=== PATIENT | female | born 1955 | race Caucasian/White ===

== ENCOUNTER 2017-08-30 09:03 | Day surgery (SDC) | payer OTHER ==
--- OUTSIDE RECORDS SUMMARY | 2017-08-30 09:05 | XMS REPORT | Clinical Summary ---
:1955 Author Organization [facility] Address [address] [place] [address] Care Team Providers Name Role Phone Nader Roche MD Primary Care Provider Allergies Active Allergy Reactions Severity Noted Date Comments Penicillins 01/07/2017 Current Medications Prescription Sig. Disp. Refills Start Date End Date Status esomeprazole (NexIUM) Take 40 mg by 3 10/02/2016 Active 40 MG capsule mouth 2 (two) times a day. hydrALAZINE Take 100 mg by 3 11/07/2016 Active (APRESOLINE) 100 MG mouth 2 (two) tablet times a day. ascorbic acid, Take 1,000 mg Active vitamin C, (vitamin by mouth daily. C) 1000 MG tablet pyridoxine, vitamin Take 100 mg by Active B6, (B-6) 100 MG mouth daily. tablet ferrous sulfate 325 Take 325 mg by Active (65 FE) MG tablet mouth daily with breakfast. biotin 5,000 mcg Take 1 tablet Active tablet,disintegrating by mouth daily. VITAMIN B COMPLEX VIT Take 1 tablet Active C NO.4 (SUPER B by mouth daily. COMPLEX + C ORAL) cholecalciferol, Take 1 tablet Active vitamin D3, (VITAMIN by mouth daily. D3) 5,000 unit tablet VIT B COMPLX C/FOLIC Take 1 tablet Active ACID/ZINC (DIALYVITE by mouth daily. 800 WITH ZINC 50 ORAL) omega-3 fatty Take 1 tablet Active acids-fish oil (OMEGA by mouth daily. 3 FISH OIL) 684-1,200 mg capsule,delayed release(DR/EC) NIFEdipine XL Take 90 mg by Active (PROCARDIA XL) 90 MG mouth 2 (two) 24 hr tablet times a day. losartan (COZAAR) 50 Take 50 mg by Active MG tablet mouth 2 (two) times a day. liothyronine Take 5 mcg by Active (CYTOMEL) 5 MCG mouth 2 (two) tablet times a day. isosorbide Take 120 mg by Active mononitrate (IMDUR) mouth daily. 60 MG 24 hr tablet carvedilol (COREG) 25 Take 25 mg by Active MG tablet mouth 2 (two) times a day with meals. pravastatin Take 20 mg by Active (PRAVACHOL) 20 MG mouth daily. tablet levothyroxine Take 75 mcg by Active (SYNTHROID) 75 mcg mouth every tablet morning. sevelamer (RENVELA) Take 800 mg by Active 800 mg tablet mouth 3 (three) times a day with meals. UNABLE TO FIND Med Name: Active Novalog Insulin Pump doxazosin (CARDURA) 2 TAKE 1 TABLET 3 01/28/2017 04/22/2017 Discontinued MG tablet BY MOUTH EVERY DAY AT BEDTIME. Active Problems Problem Noted Date PFO with atrial septal aneurysm 01/07/2017 HTN (hypertension), malignant 01/07/2017 End stage renal disease 01/07/2017 Diabetes mellitus 01/07/2017 Resolved Problems Problem Noted Date Resolved Date ASD (atrial septal defect) 01/07/2017 02/18/2017 Encounters Date Type Specialty Care Team Description 04/22/2017 Office Visit Cardiology Zelalem Ellison Hypertension, unspecified type (Primary Dx); MD Sirena PFO with atrial septal aneurysm; HTN (hypertension), malignant 02/18/2017 Office Visit Cardiology Zelalem Ellison PFO with atrial septal aneurysm (Primary Dx); MD Sirena End stage renal disease 01/15/2017 Hospital Encounter Procedural Zelalem Ellison PFO (patent foramen ovale); Cardiology MD Sirena ASD (atrial septal defect) 01/08/2017 Abstract Transplant Erlinda Bettencourt RN 01/07/2017 Office Visit Cardiology Zelalem Ellison PFO (patent foramen ovale) ( Primary Dx); MD Sirena ASD (atrial septal defect); Kidney disease; HTN (hypertension), malignant; PFO with atrial septal aneurysm; Diabetes mellitus of other type with complication; ESRD (end stage renal disease) on dialysis after 08/29/2016 Family History Medical History Relation Name Comments Heart attack Father Hypertension Mother Thyroid disease Mother Hypertension Sister Relation Name Status Comments Father Mother Sister Alive Social History Tobacco Use Types Packs/Day Years Used Date Former Smoker Alcohol Use Drinks/Week oz/Week Comments No Sex Assigned at Date Recorded Not on file Last Filed Vital Signs Vital Sign Reading Time Taken Blood Pressure 127/61 04/22/2017 12:13 PM [employer] Pulse 73 04/22/2017 12:13 PM [employer] Temperature - - Respiratory Rate 14 04/22/2017 12:13 PM [employer] Oxygen Saturation 95% 02/18/2017 8:53 AM CDT Inhaled Oxygen Concentration - - Weight 56.2 kg (124 lb) 04/22/2017 12:13 PM [employer] Height 170.2 cm (5' 7") 04/22/2017 12:13 PM [employer] Body Mass Index 19.42 04/22/2017 12:13 PM [employer] Plan of Treatment Health Maintenance Due Date Last Done Comments FOOT EXAM 02/15/1964 OPHTHALMOLOGY EXAM 02/15/1964 URINE MICROALBUMIN 02/15/1964 PAP SMEAR 1975 COLONOSCOPY 02/15/2004 MAMMOGRAM 02/15/2004 ZOSTER VACCINE 2014 INFLUENZA VACCINE 01/08/2017 Results ECG 12 lead (04/22/2017 12:18 PM)Only the most recent of2 resultswithin the time period is included. Component Value Ref Range Ventricular rate 71 Atrial rate 71 SD interval 142 QRSD interval 82 QT interval 458 QTC interval 497 P axis 1 75 QRS axis 1 -50 T wave axis 40 EKG impression Normal sinus rhythm-Left anterior fascicular block-Prolonged QT-Abnormal ECG- Specimen Performing Laboratory [facility] [address] [place] [address] Hemoglobin (02/28/2017) Specimen Performing Laboratory Blood Comprehensive metabolic panel (2017)Only the most recent of2 resultswithin the time period is included. Specimen Performing Laboratory Blood Cardiac mri congenital heart dz shunt eval w contrast (01/15/2017 11:49 AM) Specimen Performing Laboratory [facility] [address] [place] [address] [facility] CMR Report Name: MILAD HIGHTOWER :1955 Scan Date: 2017-01-15 10:31:56 Signed by Antione Gonzalez M.D. (uid:20) 17:24:38. SUMMARY ====== 1.Tunneled Patent sosa ovale with left to right shunt demonstrated. The net Qp-Qs=1.0 suggesting minimal net shunting. 2.Mild left atrial enlargement. Mild right ventricular enlargement. NO intracardiac thrombus or mass. 3.Hyperdynamic LV and normal RV systolic function without regional wall motion abnormalities (LVEF 73%, RVEF 54%). 4.No CMR criteria for cardiac iron overload (myocardial T2* ~ 40 msec). 5.Mild mitral and tricuspid regurgitation. 6.The thoracic aorta is of normal caliber without stenosis, aneurysm, or dissection. Normal pulmonary venous anatomy; NO anomalous pulmonary veins. Dilated main pulmonary artery ( 3.5 cm), right pulmonary artery (2.7 cm). Dilated IVC 7.Other: bilateral breast implants. Hepatomegaly. FINAL IMPRESSION: A.TUNNELED PFO WITH LEFT TO RIGHT SHUNT AND QP/QS OF 1 B.MILD RV DILATION. C.DILATED PULMONARY ARTERIES SUGGESTIVE OF PULMONARY HYPERTENSION D.NO CARDIAC IRON OVERLOAD. CORE EXAM ====== MEASUREMENTS ------ ---- VOLUMETRIC ANALYSIS . . || | LV| Reference | RV| Reference | +------+-------+-------+ +-------+ + | EDV| ml| 144.5 |(89-146) | 172.5 |(82-144) | | ESV| ml|39.5 |(21-52)|78.6 |(13-57)| | CO | L/min |6.72 | |6.01 | | | MASS | g | 144.9 |(80-131) | | | | SV | ml| 105 |(60-100) |93.9 |(57-97)| | EF | % | 72.66 |(60-78)| 54.43 |(57-81)| '------+-------+-------+ +-------+ ' HEART RATE:64 LV DIMENSIONS WALL THICKNESS - ANTEROSEPTAL:1.1 cm WALL THICKNESS - INFEROLATERAL:0.8 cm LV SHANNON:5 cm LV ESD:3 cm LA DIMENSIONS (LV SYSTOLE) DIAMETER:3.9 cm AREA - 2 CHAMBER:25 cm^2 LENGTH - 2 CHAMBER:6 cm AREA - 4 CHAMBER:28 cm^2 LENGTH - 4 CHAMBER:6.6 cm VOLUME:99.17 ml AORTIC ROOT DIMENSIONS DIAMETER - ANNULUS:2.3 cm DIAMETER - SINUS OF VALSALVA:3.1 cm DIAMETER - SINOTUBULAR JUNCTION:2.4 cm AORTIC ROOT SIZE:Normal IRON QUANTIFICATION MYOCARDIAL T2*:41 msec LIVER T2*:3 msec FLOW ANALYSIS QP:5.3 L/min QS:5.6 L/min QP/QS:0.95 CONDENSED SUMMARY ------ ---- LV:Normal Wall Thickness. Cavity Size is Normal. No Mass/Thrombus. RV:Normal Wall Thickness. Contractility is Normal. Cavity Size is MILDLY ENLARGED. No Mass/Thrombus. No Pacemaker/Defibrillator Wire. IVS:Normal Interventricular Septum. LA:Cavity Size is MILDLY ENLARGED. No Mass/Thrombus. IAS:PFO. RA:Cavity Size is Normal. No Mass/Thrombus. No Additional Findings. No Pacemaker/Defibrillator Wire. PER:Normal Pericardium. SMALL Effusion. No Diastolic Collapse. PE:No Pleural Effusion. AV:Trileaflet. No Aortic Regurgitation. No Aortic Stenosis. TV:Normal Leaflets. MILD Tricuspid Regurgitation. Tricuspid Regurgitant Volume is 14 ml. Tricuspid Regurgitant Fraction is 15 %. No Tricuspid Stenosis. MV:Normal Leaflets. MILD Mitral Regurgitation. Mitral Regurgitant Volume is 20 ml. Mitral Regurgitant Fraction is 19 %. No Mitral Stenosis. PV:Normal Leaflets. No Pulmonic Regurgitation. No Pulmonic Stenosis. 17 SEGMENT ------ ---- . ------ ------. | Segments | Wall Motion| Hyperenhancement | Stress Perfusion | Interpretation | + + + + +---- ------ ------+ | Base Anterior| Normal/Hyper ||| | | Base Anteroseptal| Normal/Hyper ||| | | Base Inferoseptal| Normal/Hyper ||| | | Base Inferior| Normal/Hyper ||| | | Base Inferolateral | Normal/Hyper ||| | | Base Anterolateral | Normal/Hyper ||| | | Mid Anterior | Normal/Hyper ||| | | Mid Anteroseptal | Normal/Hyper ||| | | Mid Inferoseptal | Normal/Hyper ||| | | Mid Inferior | Normal/Hyper ||| | | Mid Inferolateral| Normal/Hyper ||| | | Mid Anterolateral| Normal/Hyper ||| | | Apical Anterior| Normal/Hyper ||| | | Apical Septal| Normal/Hyper ||| | | Apical Inferior| Normal/Hyper ||| | | Apical Lateral | Normal/Hyper ||| | | [place] | Normal/Hyper ||| | + + + + +---- ------ ------+ | RV Segments| Wall Motion| Hyperenhancement | Stress Perfusion | Interpretation | + + + + +---- ------ ------+ | RV Basal Anterior| Normal/Hyper ||| | | RV Basal Inferior| Normal/Hyper ||| | | RV Mid | Normal/Hyper ||| | | RV Apical| Normal/Hyper ||| | ' + + + +---- ------ ------' VASCULAR ====== SCAN INFO ====== GENERAL ------ ---- SEDATION SEDATION USED?:No CONTRAST AGENT TYPE:Other... OTHER TYPE:Francisco LOT NUMBER:[id number] EXPIRATION DATE:2019-09-08 00:00:00 VOLUME ADMINISTERED:3 ml DOSAGE FOR 0.5M:0.03 mmol/kg SERUM CREATININE:7.29 sCr GFR:6.03 ml/min/1.73m^2 FEMALE:Yes OR BLACK:No CREATININE DATE:2017-01-12 00:00:00 LAB RESULT HEMATOCRIT LEVEL:36.1 % HEMATOCRIT DATE:2017-01-12 00:00:00 VITALS HEIGHT:67 in HEIGHT:170.18 cm BODY WEIGHT:130.01 lbs BODY WEIGHT:58.97 kgs BSA::1.68 m^2 SYSTOLIC BP:164 mmHg DIASTOLIC BP:74 mmHg HEART RATE:68 BPM HEART RHYTHM:Sinus Rhythm PULSE SEQUENCE PULSE SEQUENCES:Single-Shot SSFP, IR SSFP - Single Shot, T1 Turbo Spin Echo, Single Shot BB BOB, SSFP Cine, Phase Contrast Velocity Mapping, 3D MRA w and w/o contrast SETUP TYPE:Clinical INPATIENT:No LOCATION:[facility] INCOMPLETE SCAN:No REASON(S) FOR SCAN:ASD (evaluate for) REFERRING PHYSICIAN:Zelalem Ellison MD ATTENDING PHYSICIAN:Antione Gonzalez MD TECHNICIANS:Madie GARDNER ASSISTANTS:1) Marko Espinoza 2) Sidra Bob ------ ---- Patient Account [id number] CPT Codes 08788, [ , ]70559, [ , ]77720 ICD10 Codes R93.1, [ , ]Q21.1 ADDITIONAL NOTES ------ ---- Imaging was performed using an intravenous infusion of ferumoxytol after consultation with the patient's physician.MRI assessment of liver T2-star values was performed to exclude iron overload.The patient was monitored for more than 60 minutes after administration and tolerated the procedure well and there were no complications.Note use of this agent may lead to interference on MRI of the abdomen for up to 3 months. Procedure Note Interface, Radiology Results In - 01/15/2017 5:25 PM CDT [facility] CMR Report Name: MILAD HIGHTOWER : 1955 Scan Date: 2017-01-15 10:31:56 Signed by Antione Gonzalez M.D. (uid:20) 17:24:38. SUMMARY 1. Tunneled Patent sosa ovale with left to right shunt demonstrated. The net Qp-Qs=1.0 suggesting minimal net shunting. 2. Mild left atrial enlargement. Mild right ventricular enlargement. NO intracardiac thrombus or mass. 3. Hyperdynamic LV and normal RV systolic function without regional wall motion abnormalities (LVEF 73%, RVEF 54%). 4. No CMR criteria for cardiac iron overload (myocardial T2* ~ 40 msec). 5. Mild mitral and tricuspid regurgitation. 6. The thoracic aorta is of normal caliber without stenosis, aneurysm, or dissection. Normal pulmonary venous anatomy; NO anomalous pulmonary veins. Dilated main pulmonary artery ( 3.5 cm), right pulmonary artery (2.7 cm). Dilated IVC 7. Other: bilateral breast implants. Hepatomegaly. FINAL IMPRESSION: A. TUNNELED PFO WITH LEFT TO RIGHT SHUNT AND QP/QS OF 1 B. MILD RV DILATION. C. DILATED PULMONARY ARTERIES SUGGESTIVE OF PULMONARY HYPERTENSION D. NO CARDIAC IRON OVERLOAD. CORE EXAM MEASUREMENTS VOLUMETRIC ANALYSIS . . | | | LV | Reference | RV | Reference | +------+-------+-------+ +-------+ + | EDV | ml | 144.5 | (89-146) | 172.5 | (82-144) | | ESV | ml | 39.5 | (21-52) | 78.6 | (13-57) | | CO | L/min | 6.72 | | 6.01 | | | MASS | g | 144.9 | (80-131) | | | | SV | ml | 105 | (60-100) | 93.9 | (57-97) | | EF | % | 72.66 | (60-78) | 54.43 | (57-81) | '------+-------+-------+ +-------+ ' HEART RATE: 64 LV DIMENSIONS WALL THICKNESS - ANTEROSEPTAL: 1.1 cm WALL THICKNESS - INFEROLATERAL: 0.8 cm LV SHANNON: 5 cm LV ESD: 3 cm LA DIMENSIONS (LV SYSTOLE) DIAMETER: 3.9 cm AREA - 2 CHAMBER: 25 cm^2 LENGTH - 2 CHAMBER: 6 cm AREA - 4 CHAMBER: 28 cm^2 LENGTH - 4 CHAMBER: 6.6 cm VOLUME: 99.17 ml AORTIC ROOT DIMENSIONS DIAMETER - ANNULUS: 2.3 cm DIAMETER - SINUS OF VALSALVA: 3.1 cm DIAMETER - SINOTUBULAR JUNCTION: 2.4 cm AORTIC ROOT SIZE: Normal IRON QUANTIFICATION MYOCARDIAL T2*: 41 msec LIVER T2*: 3 msec FLOW ANALYSIS QP: 5.3 L/min QS: 5.6 L/min QP/QS: 0.95 CONDENSED SUMMARY LV:Normal Wall Thickness. Cavity Size is Normal. No Mass/Thrombus. RV:Normal Wall Thickness. Contractility is Normal. Cavity Size is MILDLY ENLARGED. No Mass/Thrombus. No Pacemaker/Defibrillator Wire. IVS:Normal Interventricular Septum. LA:Cavity Size is MILDLY ENLARGED. No Mass/Thrombus. IAS:PFO. RA:Cavity Size is Normal. No Mass/Thrombus. No Additional Findings. No Pacemaker/Defibrillator Wire. PER:Normal Pericardium. SMALL Effusion. No Diastolic Collapse. PE:No Pleural Effusion. AV:Trileaflet. No Aortic Regurgitation. No Aortic Stenosis. TV:Normal Leaflets. MILD Tricuspid Regurgitation. Tricuspid Regurgitant Volume is 14 ml. Tricuspid Regurgitant Fraction is 15 %. No Tricuspid Stenosis. MV:Normal Leaflets. MILD Mitral Regurgitation. Mitral Regurgitant Volume is 20 ml. Mitral Regurgitant Fraction is 19 %. No Mitral Stenosis. PV:Normal Leaflets. No Pulmonic Regurgitation. No Pulmonic Stenosis. 17 SEGMENT . . | Segments | Wall Motion | Hyperenhancement | Stress Perfusion | Interpretation | + + + + +---- + | Base Anterior | Normal/Hyper | | | | | Base Anteroseptal | Normal/Hyper | | | | | Base Inferoseptal | Normal/Hyper | | | | | Base Inferior | Normal/Hyper | | | | | Base Inferolateral | Normal/Hyper | | | | | Base Anterolateral | Normal/Hyper | | | | | Mid Anterior | Normal/Hyper | | | | | Mid Anteroseptal | Normal/Hyper | | | | | Mid Inferoseptal | Normal/Hyper | | | | | Mid Inferior | Normal/Hyper | | | | | Mid Inferolateral | Normal/Hyper | | | | | Mid Anterolateral | Normal/Hyper | | | | | Apical Anterior | Normal/Hyper | | | | | Apical Septal | Normal/Hyper | | | | | Apical Inferior | Normal/Hyper | | | | | Apical Lateral | Normal/Hyper | | | | | [place] | Normal/Hyper | | | | + + + + +---- + | RV Segments | Wall Motion | Hyperenhancement | Stress Perfusion | Interpretation | + + + + +---- + | RV Basal Anterior | Normal/Hyper | | | | | RV Basal Inferior | Normal/Hyper | | | | | RV Mid | Normal/Hyper | | | | | RV Apical | Normal/Hyper | | | | ' + + + +---- ' VASCULAR SCAN INFO GENERAL SEDATION SEDATION USED?: No CONTRAST AGENT TYPE: Other... OTHER TYPE: Francisco LOT NUMBER: [id number] EXPIRATION DATE: 2019-09-08 00:00:00 VOLUME ADMINISTERED: 3 ml DOSAGE FOR 0.5M: 0.03 mmol/kg SERUM CREATININE: 7.29 sCr GFR: 6.03 ml/min/1.73m^2 FEMALE: Yes OR BLACK: No CREATININE DATE: 2017-01-12 00:00:00 LAB RESULT HEMATOCRIT LEVEL: 36.1 % HEMATOCRIT DATE: 2017-01-12 00:00:00 VITALS HEIGHT: 67 in HEIGHT: 170.18 cm BODY WEIGHT: 130.01 lbs BODY WEIGHT: 58.97 kgs BSA:: 1.68 m^2 SYSTOLIC BP: 164 mmHg DIASTOLIC BP: 74 mmHg HEART RATE: 68 BPM HEART RHYTHM: Sinus Rhythm PULSE SEQUENCE PULSE SEQUENCES: Single-Shot SSFP, IR SSFP - Single Shot, T1 Turbo Spin Echo, Single Shot BB BOB, SSFP Cine, Phase Contrast Velocity Mapping, 3D MRA w and w/o contrast SETUP TYPE: Clinical INPATIENT: No LOCATION: [facility] INCOMPLETE SCAN: No REASON(S) FOR SCAN: ASD (evaluate for) REFERRING PHYSICIAN: Zelalem Ellison MD ATTENDING PHYSICIAN: Antione Gonzalez MD TECHNICIANS: Madie GARDNER ASSISTANTS: 1) Marko Espinoza 2) Sidra Bob Patient Account [id number] CPT Codes 59681, [ , ]32355, [ , ]80096 ICD10 Codes R93.1, [ , ]Q21.1 ADDITIONAL NOTES Imaging was performed using an intravenous infusion of ferumoxytol after consultation with the patient's physician. MRI assessment of liver T2-star values was performed to exclude iron overload. The patient was monitored for more than 60 minutes after administration and tolerated the procedure well and there were no complications. Note use of this agent may lead to interference on MRI of the abdomen for up to 3 months. Estimated GFR (01/15/2017 10:01 AM) Component Value Ref Range GFR Non Af Amer 63 mL/min/1.73 m2 GFR Af Amer 77 mL/min/1.73 m2 Comment: Chronic kidney disease: <60 mL/min/1.73m2 Kidney failure: <15 mL/min/1.73m2 The estimated GFR is calculated from the IDMS-traceable Modification of Diet in Renal Disease Equation. The accuracy of the calculation is poor when the creatinine is normal. Calculated values >90 mL/min/1.73m2 are not reported. This equation has not been validated in children (<18 years), women, the elderly (>70 years), or ethnic groups other than Caucasians and Americans. Specimen Performing Laboratory Plasma specimen [facility] DEPARTMENT OF PATHOLOGY AND GENOMIC MEDICINE [address] [place] [id number] POC hematocrit (01/15/2017 10:01 AM) Component Value Ref Range POC hematocrit 46 37 - 47 % Specimen Performing Laboratory Blood [facility] DEPARTMENT OF PATHOLOGY AND GENOMIC MEDICINE [address] [place] [id number] Creatinine level (01/15/2017 10:01 AM) Component Value Ref Range Creatinine 0.9Comment: Testing performed on the ISTAT instrument by 0.5 - 0.9 mg/dL RN [id number]. Specimen Performing Laboratory Plasma specimen [facility] DEPARTMENT OF PATHOLOGY AND GENOMIC MEDICINE [address] [place] [address] after 08/29/2016 Insurance Payer Benefit Plan / Group Subscriber ID Type Phone Address MEDICARE MEDICARE PART A AND B xxxxxxxxxx Medicare [place], [place] GEHA GEHA MED SUPPLEMENT xxxxxxxx Commercial
[2017-08-30] MEDS ORDERED: FUROSEMIDE 40 MG/4 ML VIAL IV ONE (10:00)
[2017-08-30] MEDS ORDERED: NA CHLORIDE 0.9% 250 ML ONE ×2 (11:04→13:14)
[2017-08-30 17:38] LABS: Hematocrit 26.3 % (36.0-45.0)
== END 2017-08-30 17:31 | disposition home or self-care (01) ==
LOC: DS 09:03
PROVIDERS: ATTEND Internal Medicine Nephrology
DX: N18.6 End stage renal disease (principal); D63.1 Anemia in chronic kidney disease; Z99.2 Dependence on renal dialysis
CPT/HCPCS: 36415; 36430; 85014 ×2; 85018 ×2; 86850 ×2; 86900; 86901; P9016 ×2

== ENCOUNTER 2018-06-20 04:52 | Emergency (ER) | payer OTHER ==
--- OUTSIDE RECORDS SUMMARY | 2018-06-20 04:54 | XMS REPORT | Clinical Summary ---
:1955 Author Organization [facility] Address [address] [place] [address] Care Team Providers Name Role Phone Unavailable Primary Care Provider Unavailable Allergies Not on File Medications Not on file Active Problems Not on file Social History Tobacco Use Types Packs/Day Years Used Date Never Assessed Sex Assigned at Date Recorded Not on file Job Start Date Occupation Industry Not on file Not on file Not on file Travel History Travel Start Travel End No recent travel history available. Last Filed Vital Signs Not on file Plan of Treatment Date Type Specialty Care Team Description 06/25/2018 Hospital Encounter Craig Silva MD [address] [phone] 06/25/2018 Surgery Craig Silva, RECONSTRUCTION,OCULAR AMNIOTIC MEMBRANE [address] [address] Health Maintenance Due Date Last Done Comments INFLUENZA VACCINE 03/10/2018 Results Not on fileafter 06/19/2017 Insurance Payer Benefit Plan / Group Subscriber ID Type Phone Address MEDICARE MEDICARE A B xxxxxxxxxx Medicare OTHER-COMMERCIAL GENERIC COMMERCIAL xxxxxxxx
--- OUTSIDE RECORDS SUMMARY | 2018-06-20 04:54 | XMS REPORT | Clinical Summary ---
:1955 Author Organization [facility] Address [address] [place] [address] Care Team Providers Name Role Phone Nader Roche MD Primary Care Provider Allergies Active Allergy Reactions Severity Noted Date Comments Penicillins 01/07/2017 Medications Medication Sig Dispensed Refills Start Date End Date Status esomeprazole (NexIUM) Take 40 mg by 3 10/02/2016 Active 40 MG capsule mouth 2 (two) times a day. hydrALAZINE Take 100 mg by 3 11/07/2016 Active (APRESOLINE) 100 MG mouth 2 (two) tablet times a day. ascorbic acid, vitamin Take 1,000 mg by 0 Active C, (vitamin C) 1000 MG mouth daily. tablet pyridoxine, vitamin B6, Take 100 mg by 0 Active (B-6) 100 MG tablet mouth daily. ferrous sulfate 325 (65 Take 325 mg by 0 Active FE) MG tablet mouth daily with breakfast. biotin 5,000 mcg Take 1 tablet by 0 Active tablet,disintegrating mouth daily. VITAMIN B COMPLEX VIT C Take 1 tablet by 0 Active NO.4 (SUPER B COMPLEX + mouth daily. C ORAL) cholecalciferol, Take 1 tablet by 0 Active vitamin D3, (VITAMIN mouth daily. D3) 5,000 unit tablet VIT B COMPLX C/FOLIC Take 1 tablet by 0 Active ACID/ZINC (DIALYVITE mouth daily. 800 WITH ZINC 50 ORAL) omega-3 fatty Take 1 tablet by 0 Active acids-fish oil (OMEGA 3 mouth daily. FISH OIL) 684-1,200 mg capsule,delayed release(DR/EC) NIFEdipine XL Take 90 mg by 0 Active (PROCARDIA XL) 90 MG 24 mouth 2 (two) hr tablet times a day. losartan (COZAAR) 50 MG Take 50 mg by 0 Active tablet mouth 2 (two) times a day. liothyronine (CYTOMEL) Take 5 mcg by 0 Active 5 MCG tablet mouth 2 (two) times a day. isosorbide mononitrate Take 120 mg by 0 Active (IMDUR) 60 MG 24 hr mouth daily. tablet carvedilol (COREG) 25 Take 25 mg by 0 Active MG tablet mouth 2 (two) times a day with meals. pravastatin (PRAVACHOL) Take 20 mg by 0 Active 20 MG tablet mouth daily. levothyroxine Take 75 mcg by 0 Active (SYNTHROID) 75 mcg mouth every tablet morning. sevelamer (RENVELA) 800 Take 800 mg by 0 Active mg tablet mouth 3 (three) times a day with meals. UNABLE TO FIND Med Name: Novalog 0 Active Insulin Pump Active Problems Problem Noted Date PFO with atrial septal aneurysm 01/07/2017 HTN (hypertension), malignant 01/07/2017 End stage renal disease 01/07/2017 Diabetes mellitus 01/07/2017 Encounters Date Type Specialty Care Team Description 04/22/2018 Lab Lab Shira, Craig Horowitz MD after 06/19/2017 Family History Medical History Relation Name Comments [...] Signs Not on file Plan of Treatment Health Maintenance Due Date Last Done Comments DIABETIC RETINAL EYE EXAM 1955 DIABETIC FOOT EXAM 02/15/1964 URINE MICROALBUMIN 02/15/1964 CERVICAL CANCER SCREENING 1975 BREAST CANCER SCREENING 02/15/2004 COLON CANCER SCREENING 02/15/2004 SHINGLES VACCINES (1 of 2) 02/15/2004 INFLUENZA VACCINE 01/08/2018 Procedures Procedure Name Priority Date/Time Associated Diagnosis Comments FUNGUS SMEAR Routine 04/22/2018 6:00 PM Results for this HARBOR DEPARTMENT MANAGER procedure are in the results section. GRAM STAIN Routine 04/22/2018 6:00 PM Results for this HARBOR DEPARTMENT MANAGER procedure are in the results section. FUNGUS CULTURE Routine 04/22/2018 6:00 PM Results for this HARBOR DEPARTMENT MANAGER procedure are in the results section. EYE CULTURE, Routine 04/22/2018 6:00 PM Results for this ANAEROBIC HARBOR DEPARTMENT MANAGER procedure are in the results section. ACRIDINE ORANGE Routine 04/22/2018 6:00 PM Results for this STAIN HARBOR DEPARTMENT MANAGER procedure are in the results section. EYE CULTURE Routine 04/22/2018 6:00 PM Results for this HARBOR DEPARTMENT MANAGER procedure are in the results section. after 06/19/2017 Results Fungus smear (04/22/2018 6:00 PM HARBOR DEPARTMENT MANAGER) Fungus smear No fungi observed. [facility] Comment: Specimen Information Specimen Source: Corneal scraping Specimen Site: Right Eye Specimen Corneal scraping Performing Organization Address [facility] Phone Number [facility] DEPARTMENT OF PATHOLOGY AND [address] [place] [phone] [place] [phone] Eye culture, anaerobic (04/22/2018 6:00 PM HARBOR DEPARTMENT MANAGER) Eye culture isolate, Thioglycollate: CHRIS BLACK anaerobic No anaerobes isolated after 7 days. [facility]OSPITAL Comment: Specimen Information Specimen Source: Corneal scraping Specimen Site: Right Eye Specimen Corneal scraping Performing Organization Address [facility] Phone Number [facility] DEPARTMENT OF PATHOLOGY AND [address] [place] [phone] [phone] Acridine orange stain (04/22/2018 6:00 PM HARBOR DEPARTMENT MANAGER) Acridine orange stain Many cocciin clusters [facility] Comment: Specimen Information Specimen Source: Corneal scraping Specimen Site: Right Eye Specimen Corneal scraping Performing Organization Address [facility] Phone Number [facility] DEPARTMENT OF PATHOLOGY AND [address] [place] [phone] [phone] Eye culture (04/22/2018 6:00 PM HARBOR DEPARTMENT MANAGER) Eye culture isolate Blood and Chocolate agars and Thioglycollate broth: (A) CHRIS BLACK Comment: HOSPITAL Specimen Information Specimen Source: Corneal scraping Specimen Site: Right Eye Eye culture isolate Streptococcus mitis group [facility] Growth first detected onBlood/Chocolate/Thioglycollateon day 1 identification/susceptibility to follow Interpretations of the STEPHANIE values are based on serum and urine levels.Interpret results accordingly. \ Interpretations of the STEPHANIE values are based on serum and urine levels.Interpret results accordingly. (A) Eye culture isolate Staphylococcus, coagulase negative [facility] Growth first detected on Chocolate/Thioglycollateon day 2 susceptibility to follow Interpretations of the STEPHANIE values are based on serum and urine levels.Interpret results accordingly. (A) Eye culture isolate Corynebacterium amycolatum [facility] Growth first detected onBlood/Chocolate agaron day 6 Interpretations of the STEPHANIE values are based on serum and urine levels.Interpret results accordingly. Interpretations of the STEPHANIE values are based on serum and urine levels.Interpret results accordingly. (A) Specimen Corneal scraping Organism Antibiotic Method Susceptibility Streptococcus mitis group Ampicillin BP 0.38 mcg/mL: Resistant Streptococcus mitis group Azithromycin BP 0.19 mcg/mL Streptococcus mitis group Ciprofloxacin BP 32 mcg/mL Streptococcus mitis group Erythromycin BP 0.032 mcg/mL: Susceptible Streptococcus mitis group Moxifloxacin BP 6 mcg/mL Streptococcus mitis group Ofloxacin BP 36 mcg/mL: Resistant Streptococcus mitis group Penicillin G BP 0.125 mcg/mL: Susceptible Streptococcus mitis group Vancomycin BP 0.5 mcg/mL: Susceptible Staphylococcus coagulase negative Ampicillin BP 4 mcg/mL Staphylococcus coagulase negative Erythromycin BP >256 mcg/mL: Resistant Staphylococcus coagulase negative Oxacillin BP 1.5 mcg/mL: Resistant Staphylococcus coagulase negative Penicillin G BP 1.5 mcg/mL: Resistant Staphylococcus coagulase negative Vancomycin BP 1.5 mcg/mL: Susceptible Staphylococcus coagulase negative Amikacin BP 1 mcg/mL: Susceptible Staphylococcus coagulase negative Azithromycin BP >256 mcg/mL: Resistant Staphylococcus coagulase negative Ciprofloxacin BP 32 mcg/mL: Resistant Staphylococcus coagulase negative Clarithromycin BP >256 mcg/mL: Resistant Staphylococcus coagulase negative Gentamicin BP 0.094 mcg/mL: Susceptible Staphylococcus coagulase negative Moxifloxacin BP 32 mcg/mL: Resistant Staphylococcus coagulase negative Ofloxacin BP 32 mcg/mL: Resistant Staphylococcus coagulase negative Tobramycin BP 3 mcg/mL: Susceptible Corynebacterium amycolatum Ampicillin BP 3 mcg/mL Corynebacterium amycolatum Azithromycin BP >256 mcg/mL Corynebacterium amycolatum Ciprofloxacin BP 6 mcg/mL Corynebacterium amycolatum Moxifloxacin BP 1.5 mcg/mL Corynebacterium amycolatum Ofloxacin BP 16 mcg/mL Corynebacterium amycolatum Vancomycin BP 0.5 mcg/mL Performing Organization Address City/[facility] Phone Number [facility] DEPARTMENT OF PATHOLOGY AND [address] [place] [phone] [place] [phone] Gram stain (04/22/2018 6:00 PM HARBOR DEPARTMENT MANAGER) Gram stain isolate See Acridine Hamilton report for result [facility] Comment: Specimen Information Specimen Source: Corneal scraping Specimen Site: Right Eye Specimen Corneal scraping Performing Organization Address [facility] Phone Number [facility] DEPARTMENT OF PATHOLOGY AND [address] [place] [phone] Fungus culture (04/22/2018 6:00 PM HARBOR DEPARTMENT MANAGER) Fungus culture isolate No growth after [address] [facility] Comment: HOSPITAL Specimen Information Specimen Source: Corneal scraping Specimen Site: Right Eye Specimen Corneal scraping Performing Organization Address [facility] Phone Number [facility] DEPARTMENT OF PATHOLOGY AND [address] [place] [phone] after 06/19/2017 Insurance Payer Benefit Plan / Group Subscriber ID Type Phone Address MEDICARE MEDICARE PART A AND B xxxxxxxxxx Medicare [place], [place] GEHA GEHA MED SUPPLEMENT xxxxxxxx Commercial
--- OUTSIDE RECORDS SUMMARY | 2018-06-20 04:55 | XMS REPORT | Continuity of Care Document ---
:1955 Author Organization Interface Problems Problem Status Onset Classification Date Comments Source Date Reported POSTTRAMATIC Active 11/11/[address] [facility] [place] HEMATOMA OF LEFT [address] [place] [address] BREST BREAST IMPLANT Active 11/11/[address] [facility] [place] HEMATOMA [address] [place] [id number], Active 09/14/[address] [facility] [place] [id number] [place] [address] HISTORYOF BREAST AUGME Absence of Resolved Problem 11/14/[address] [facility] [place] breast, acquired [facility] Diabetes Active Problem 11/14/2016 [facility] [place] Thyroid disease Active Problem 11/14/2016 [facility] [place] End stage renal Active Problem 11/14/[address] [facility] [place] disease on [facility] dialysis due to type 1 diabetes mellitus Hypertension Active Problem 11/14/2016 [facility] [place] Breast cancer Resolved Problem 11/14/2016 [facility] [place] ILLNESS, Active [facility] [place] UNSPECIFIED [facility] CONTUSION OF Active [facility] [place] LEFT BREAST, City INITIAL ENCOUN Medications Medication Details Route Status Patient Ordering Order Source Instructions Provider Date bifidobacterium-l 1 tab, CHEW, Active actobacillus oral Daily, # 30 tab, 2016 [facility] tablet, chewable 0 Refill(s) [facility] clindamycin 150 150 mg=1 cap, Active mg oral capsule PO, Q6H, X 14 2016, # 56 cap, 0 [facility] Refill(s) Pravastatin 20 mg, 1 tab, No Longer Route: PO, Drug Active 2016 [facility] form: TAB, [facility] Bedtime, Dosing Weight 58.818, kg, Start date: 11/10/16 21:00:00 CDT, Duration: 30 day, Stop date: 12/09/16 21:00:00 CDTNotes: (Same as: Pravachol) Isosorbide 120 mg, 2 tab, No Longer Route: PO, Drug Active 2016 [facility] form: ERTAB, [facility] QPM, Dosing Weight 58.818, kg, Start date: 11/10/16 21:00:00 CDT, Duration: 30 day, Stop date: 12/09/16 21:00:00 CDTNotes: (Same as:Imdur) Do not crush Cleocin HCl + 600 mg, 4 mL, No Longer sodium chloride Route: IVPB, Active 2016 [facility] 0.9% INJ 50 mL [id number], Dosing [facility] Weight 58.818, kg, Start date: 11/10/16 20:00:00 CDT, Duration: 30 day, Stop date: 12/10/16 12:00:00 CDT, ABX Indication: Surgical ProphylaxisNotes : (clindamycin 150 mg/1 ml (600 mg/4 ml VL) INJ) (Same As: Cleocin) Protonix 40 mg, 1 tab, No Longer Route: PO, Drug Active 2016 [facility] form: ECTAB, [facility] Before Dinner, Start date: 11/10/16 16:30:00 CDT, Duration: 30 day, Stop date: 12/09/16 16:30:00 CDTNotes: Tablet should not be chewed or crushed. (Same as: Protonix) Morphine 4 mg, 1 mL, No Longer Route: IM, Drug Active 2016 [facility] form: INJ, Q4H, [facility] Dosing Weight 58.818, kg, PRN Pain Score 7-10, Start date: 11/10/16 16:04:00 CDT, Duration: 30 day, Stop date: 12/10/16 16:03:00 CDTNotes: (Same as:MORPhine Sulfate) Acetaminophen 325 1 tab, Route: No Longer MG / Hydrocodone PO, Drug Form: Active 2016 [facility] Bitartrate 7.5 MG TAB, Dosing [facility] Oral Tablet Weight 58.818, kg, Q4H, PRN Pain Score 4-6, Start date: 11/10/16 16:03:00 CDT, Duration: 30 day, Stop date: 12/10/16 16:02:00 CDTNotes: Same as [place] 325-7.5mg Do not exceed 4gm/day of acetaminophen. ondansetron Route: IV, Drug Inactive (ANES) form: INJ, ONCE, 2016 [facility] Stop date: [facility] 11/10/16 12:56:00 CDT acetaminophen Route: IV, Drug Inactive (ANES) form: INJ, ONCE, 2016 [facility] Stop date: [facility] 11/10/16 12:26:00 CDT famotidine (ANES) Route: IV, Drug Inactive form: INJ, ONCE, 2016 [facility] Stop date: [facility] 11/10/16 12:26:00 CDT Cleocin Phosphate Route: IV, Drug Inactive (ANES) + sodium form: INJ, ONCE, 2016 [facility] chloride 0.9% 100 Stop date: [facility] ml INJ (ANES) 11/10/16 12:21:00 CDT ePHEDrine (ANES) Route: IV, Drug Inactive form: INJ, ONCE, 2016 [facility] Stop date: [facility] 11/10/16 12:21:00 CDT fentaNYL (ANES) Route: IV, Drug Inactive form: INJ, ONCE, 2016 [facility] Stop date: [facility] 11/10/16 12:21:00 CDT propofol (ANES) Route: IV, Drug Inactive form: INJ, ONCE, 2016 [facility] Stop date: [facility] 11/10/16 12:21:00 CDT midazolam (ANES) Route: IV, Drug Inactive form: SOLN, 2016 [facility] ONCE, Stop date: [facility] 11/10/16 12:21:00 CDT succinylcholine Route: IV, Drug Inactive 11/10/ (ANES) form: INJ, ONCE, 2016 [facility] Stop date: [facility] 11/10/16 12:11:00 CDT Diphenhydramine 12.5 mg, 0.25 Inactive mL, Route: IVP, 2016 [facility] Drug form: INJ, City Q6H, Dosing Weight 58.818, kg, PRN Itching, Start date: 11/10/16 12:11:00 CDT, Duration: 30 day, Stop date: 12/10/16 12:10:00 CDTNotes: (Same as: Benadryl) Naloxone 0.4 mg, 1 mL, Inactive 11/10/ Route: IVP, Drug 2016 [facility] form: INJ, City Q2MIN, Dosing Weight 58.818, kg, PRN Narcotic Reversal, Start date: 11/10/16 12:11:00 CDT, Duration: 8 doses or times, Stop date: Limited # of timesNotes: Same as Narcan Flumazenil 0.2 mg, 2 mL, Inactive Route: IVP, Drug 2016 [facility] form: INJ, PRN, City Dosing Weight 58.818, kg, PRN Benzodiazepine Reversal, Initial dose, Start date: 11/10/16 12:11:00 CDT, Duration: 30 day, Stop date: 12/10/16 12:10:00 CDTNotes: (Same as: Romazicon) Morphine 4 mg, 1 mL, Inactive Route: IVP, Drug 2016 [facility] form: INJ, [place] Q5Min, Dosing Weight 58.818, kg, PRN Pain Score 7-10, Start date: 11/10/16 12:11:00 CDT, Duration: 3 doses or times, Stop date: Limited # of timesNotes: (Same as:MORPhine Sulfate) Hydromorphone 0.5 mg, 0.25 mL, Inactive Route: IVP, Drug 2016 [facility] form: INJ, [place] Q5Min, Dosing Weight 58.818, kg, PRN Pain Score 7-10, Start date: 11/10/16 12:11:00 CDT, Duration: 4 doses or times, Stop date: Limited # of timesNotes: Same as Dilaudid Meperidine 12.5 mg, 0.25 Inactive mL, Route: IVP, 2016 [facility] Drug form: INJ, [place] Q30Min, Dosing Weight 58.818, kg, PRN Other -See Comment, For shivering, Start date: 11/10/16 12:11:00 CDT, Duration: 2 doses or times, Stop date: Limited # of timesNotes: (Same as: Demerol) "Use Precaution in Elderly, Seizure disorders, and Renal impairment" Ondansetron 4 mg, 2 mL, Inactive Route: IVP, Drug 2016 [facility] form: INJ, ONCE, City Dosing Weight 58.818, kg, PRN Nausea & Vomiting, Start date: 11/10/16 12:11:00 CDTNotes: (Same as: Zofran) MEDICATION WASTE Product Size: 4 mg Product Wasted: ___ mg Promethazine 6.25 mg, 0.25 Inactive mL, Route: IVPB, 2016 [facility] ONCE, Dosing [facility] Weight 58.818, kg, PRN Nausea & Vomiting, Start date: 11/10/16 12:11:00 CDTNotes: Do not give IV push. (Same as: Phenergan) sodium chloride Route: IV, Total Inactive 0.9% 1000 ml INJ Volume: 1,000, 2016 [facility] (ANES) Start date: [facility] 11/10/16 11:17:00 CDT, Stop date: 11/10/16 12:17:00 CDT Docusate 100 mg, 1 cap, No Longer Route: PO, Drug Active 2016 [facility] form: CAP, BID, [facility] Dosing Weight 58.818, kg, Start date: 11/10/16 9:00:00 CDT, Duration: 30 day, Stop date: 12/09/16 17:00:00 CDTNotes: (Same as: Colace) (Do Not Crush) Hydralazine 100 mg, 2 tab, No Longer Hydrochloride 100 Route: PO, Drug Active 2016 [facility] MG Oral Tablet form: TAB, BID, [facility] Dosing Weight 58.818, kg, Start date: 11/10/16 9:00:00 CDT, Duration: 30 day, Stop date: 12/09/16 21:00:00 CDTNotes: (Same as: Apresoline) May interfere w/enteral feedings Take With Food Esomeprazole 40 mg, Route: Inactive PO, Drug form: 2016 [facility] ECCAP, Daily, [facility] Dosing Weight 58.818, kg, Start date: 11/10/16 9:00:00 CDT, Duration: 30 day, Stop date: 12/09/16 9:00:00 CDT Coreg 25 mg, 1 tab, No Longer Route: PO, Drug Active 2016 [facility] form: TAB, BID, [facility] Dosing Weight 58.818, kg, Start date: 11/10/16 9:00:00 CDT, Duration: 30 day, Stop date: 12/09/16 17:00:00 CDTNotes: Give with food. (Same As: Coreg) Renvela 800 mg, 1 tab, No Longer Route: PO, Drug Active 2016 [facility] form: TAB, [facility] TID-Meals, Dosing Weight 58.818, kg, Start date: 11/10/16 8:00:00 CDT, Duration: 30 day, Stop date: 12/09/16 17:00:00 CDTNotes: Same as: Renvela Synthroid 75 microgram, 1 No Longer tab, Route: PO, [address] Drug form: TAB, [facility] Q630AM, Dosing Weight 58.818, kg, Start date: 11/10/16 6:30:00 CDT, Duration: 30 day, Stop date: 12/09/16 6:30:00 CDTNotes: Take 1 hour before or 2 hours after meal; Enteral feeds may interefere with the absorption of this medication. (Same as:Synthroid, Levothroid) Cytomel 50 microgram, 2 No Longer tab, Route: PO, [facility] 2016 [facility] Drug form: [facility] Q630AM, Dosing Weight 58.818, kg, Start date: 11/10/16 6:30:00 CDT, Duration: 30 day, Stop date: 12/09/16 6:30:00 CDTNotes: (Same as: Cytomel) Glucagon 1 mg, Route: IM, No Longer Drug form: [address] PDR/INJ, PRN, [facility] Dosing Weight 58.818, kg, PRN Blood Glucose Results, Start date: 11/10/16 3:25:00 CDT, Duration: 30 day, Stop date: 12/10/16 3:24:00 CDT Dextrose 50% 25 gm, 50 mL, No Longer Syringe Route: IVP, Drug [address] Form: INJ, [facility] Dosing Weight 58.818, kg, PRN, PRN Blood Glucose Results, Start date: 11/10/16 3:25:00 CDT, Duration: 30 day, Stop date: 12/10/16 3:24:00 CDT Insulin, Aspart, 10 unit, 0.1 mL, No Longer Human Route: SUB-Q, [address] Drug form: SOLN, [facility] Sliding Scale, Dosing Weight 58.818, kg, PRN Blood Glucose Results, Start date: 11/10/16 3:25:00 CDT, Duration: 30 day, Stop date: 12/10/16 3:24:00 CDTNotes: Roll in palms of hands gently; Do not shake vigorously. (Same as: NovoLOG) "single patient use only" WASTE: F/P - Black; E - Municipal Trash Bin Stable for 28 days at room temperature. Expires in days from Da te Sodium Chloride 25 mL, Route: No Longer 0.9% IV IV, Start date: Active 2016 [facility] 11/10/16 3:07:00 [facility] CDT, Duration: 30 day, Stop date: 12/10/16 3:06:00 CDT, PRN Line Flush BD Normal Saline 10 mL, Route: No Longer Flush IVP, Drug Form: Active 2016 [facility] INJ, PRN, PRN [facility] Line Flush, Start date: 11/10/16 3:07:00 CDT, Duration: 30 day, Stop date: 12/10/16 3:06:00 CDTNotes: (Same as: BD Posiflush) Acetaminophen 325 1 tab, Route: Inactive MG / Hydrocodone PO, Drug Form: 2016 [facility] Bitartrate 5 MG TAB, Dosing [facility] Oral Tablet Weight 58.818, kg, Q4H, PRN Pain Score 4-6, Start date: 11/10/16 2:57:00 CDT, Duration: 30 day, Stop date: 12/10/16 2:56:00 CDTNotes: (Same as: [place] 325/5) Do not exceed 4gm/day of acetaminophen. Morphine 2 mg, 1 mL, No Longer Route: IVP, Drug Active 2016 [facility] form: INJ, Q4H, [facility] Dosing Weight 58.818, kg, PRN Pain Score 7-10, Start date: 11/10/16 2:57:00 CDT, Duration: 30 day, Stop date: 12/10/16 2:56:00 CDTNotes: (Same as:MORPhine Sulfate) Acetaminophen 650 mg, 2 tab, No Longer Route: PO, Drug Active 2016 [facility] form: TAB, Q4H, [facility] Dosing Weight 58.818, kg, PRN Pain 1-3/Temp > 100.4 F, Start date: 11/10/16 2:57:00 CDT, Duration: 30 day, Stop date: 12/10/16 2:56:00 CDTNotes: Do not exceed 4 gm/day. (Same as: Tylenol) Ondansetron 4 mg, Route: No Longer IVP, Drug form: Active 2016 [facility] INJ, Q6H, Dosing City Weight 58.818, kg, PRN Nausea & Vomiting, Start date: 11/10/16 2:57:00 CDT, Duration: 30 day, Stop date: 12/10/16 2:56:00 CDTNotes: (Same as: Zofran) MEDICATION WASTE Product Size: 4 mg Product Wasted: ___ mg ondansetron Route: IV, Drug Inactive 10/09/ MH (ANES) form: INJ, ONCE, 2016 [facility] Stop date: [facility] 16:09:00 CDT fentaNYL (ANES) Route: IV, Drug Inactive 10/09/ MH form: INJ, ONCE, 2016 [facility] Stop date: [facility] 16:09:00 CDT EPINEPHrine Route: IV, Drug Inactive 10/09/ MH (ANES) form: INJ, ONCE, 2016 [facility] Stop date: [facility] 10/09/16 14:53:00 CDT midazolam (ANES) Route: IV, Drug Inactive 10/09/ MH form: BRENDANN, 2016 [facility] , Stop date: [facility] 10/09/16 14:43:00 CDT lidocaine (ANES) Route: IV, Drug Inactive 10/09/ MH form: INJ, ONCE, 2016 [facility] Stop date: [facility] 10/09/16 14:43:00 CDT Cleocin Phosphate Route: IV, Drug Inactive 10/09/ MH (ANES) form: INJ, ONCE, 2016 [facility] Stop date: [facility] 10/09/16 14:32:00 CDT dexamethasone Route: IV, Drug Inactive 10/09/ MH (ANES) form: INJ, ONCE, 2016 [facility] Stop date: [facility] 10/09/16 14:27:00 CDT propofol (ANES) Route: IV, Drug Inactive 10/09/ MH form: INJ, ONCE, 2016 [facility] Stop date: [facility] 10/09/16 14:27:00 CDT ePHEDrine (ANES) Route: IV, Drug Inactive 10/09[facility] form: INJ, ONCE, 2016 [facility] Stop date: [facility] 10/09/16 14:27:00 CDT fentaNYL (ANES) Route: IV, Drug Inactive 10/09[facility] form: INJ, ONCE, 2016 [facility] Stop date: [facility] 10/09/16 14:27:00 CDT sodium chloride Route: IV, Total Inactive 10/09[facility] 0.9% 1000 ml INJ Volume: 1,000, 2016 [facility] (ANES) Start date: [facility] 10/09/16 13:22:00 CDT, Stop date: 10/09/16 14:22:00 CDT Exparel 266 mg, Route: Inactive 10/09[facility] InFILtration(loc [address] [place] [address] al), Drug Form: [facility] INJ, Dosing Weight 55.483, kg, ONCE, Start date: 10/09/16 12:46:00 CDT, Stop date: 10/09/16 12:46:00 CDTNotes: (Same as: Exparel) NOT FOR IV use Postoperative analgesia: Infiltration (local): Dose is based on surgical site and volume required to cover the area (in general, the maximum total dose is 266 mg). Bunionectomy: 7 mL into the tissues surrounding the osteotomy and 1 mL into the subcutaneous tissue of the surgical site (total dose=8 mL [106 mg]) Hemorrhoidectomy : 30 mL (20 mL vial diluted with 10 mL NS) divided and administered as 6 injections of 5 mL each (total dose=30 mL [266 mg]) Midazolam 1 mg, Route: Inactive IVP, Q5Min, 2016 [facility] Dosing Weight [facility] 55.483, kg, PRN Anxiety, Start date: 10/09/16 12:41:00 CDT, Duration: 2 doses or times, Stop date: Limited # of times Promethazine 6.25 mg, Route: Inactive IVPB, ONCE, 2016 [facility] Dosing Weight [facility] 55.483, kg, PRN Nausea & Vomiting, Start date: 10/09/16 12:41:00 CDT Dexamethasone 4 mg, Route: Inactive 10/09[facility] IVP, ONCE, 2016 [facility] Dosing Weight [facility] 55.483, kg, PRN Nausea & Vomiting, Start date: 10/09/16 12:41:00 CDT Lorazepam 0.5 mg, Route: Inactive IVP, Q20Min, 2017 [facility] Dosing Weight [facility] 55.483, kg, PRN Anxiety, Start date: 10/09/16 12:41:00 CDT, Duration: 3 doses or times, Stop date: Limited # of times 72 HR Scopolamine 1 patch, Route: Inactive 0.0139 MG/HR TOP, Drug Form: 2017 [facility] Transdermal Patch ERFILM, Dosing City Weight 55.483, kg, ONCE, Apply behind ear. Avoid use in elderly., Start date: 10/09/16 12:41:00 CDT, Stop date: 10/09/16 12:41:00 CDTNotes: Change patch every 72 hours (Same as: Transderm-Scop) Ondansetron 4 mg, Route: Inactive IVP, ONCE, 2016 [facility] Dosing Weight [facility] 55.483, kg, PRN Nausea & Vomiting, Start date: 10/09/16 12:41:00 CDT Meperidine 12.5 mg, Route: Inactive IVP, Q30Min, 2017 [facility] Dosing Weight [facility] 55.483, kg, PRN Other -See Comment, For shivering, Start date: 10/09/16 12:41:00 CDT, Duration: 2 doses or times, Stop date: Limited # of times Albuterol 0.83 2.49 mg, Route: Inactive MG/ML Inhalant NEB, PRN, Dosing 2017 [facility] Solution Weight 55.483, City kg, PRN Respiratory Protocol, Start date: 10/09/16 12:41:00 CDT, Duration: 30 day, Stop date: 11/08/16 12:40:00 CDT 200 ACTUAT 2 puff, Route: Inactive Albuterol 0.09 INHALER, Drug 2017 [facility] MG/ACTUAT Metered Form: AERO/A, [facility] Dose Inhaler Dosing Weight 55.483, kg, ONCE, Start date: 10/09/16 12:41:00 CDT, Stop date: 10/09/16 12:41:00 CDT, On arrival to PACUNotes: Albuterol 90 microgram/inh 8gm HFA WASTE: Aerosol - Return to Pharmacy Same as: Ventolin, Proventil Morphine 2 mg, Route: Inactive IVP, Q5Min, 2016 [facility] Dosing Weight [facility] 55.483, kg, PRN Pain Score 4-6, Start date: 10/09/16 12:41:00 CDT, Duration: 5 doses or times, Stop date: Limited # of times Diphenhydramine 12.5 mg, Route: Inactive IVP, Drug form: [address] [place] [address] INJ, Q6H, Dosing [facility] Weight 55.483, kg, PRN Itching, Start date: 10/09/16 12:41:00 CDT, Duration: 30 day, Stop date: 11/08/16 12:40:00 CDT Racepinephrine 0.5 mL, Route: Inactive NEB, Dosing 2016 [facility] Weight 55.483, City kg, PRN, PRN Shortness of breath, Start date: 10/09/16 12:41:00 CDT, Duration: 30 day, Stop date: 11/08/16 12:40:00 CDT Flumazenil 0.2 mg, Route: Inactive IVP, PRN, Dosing 2016 [facility] Weight 55.483, City kg, PRN Benzodiazepine Reversal, Initial dose, Start date: 10/09/16 12:41:00 CDT, Duration: 30 day, Stop date: 11/08/16 12:40:00 CDT Ephedrine 5 mg, Route: Inactive 10/09[facility] IVP, Q5Min, 2016 [facility] Dosing Weight [facility] 55.483, kg, PRN Low Blood Pressure, Start date: 10/09/16 12:41:00 CDT, Duration: 30 day, Stop date: 11/08/16 12:40:00 CDT Naloxone 0.4 mg, Route: Inactive 10/09[facility] IVP, Q2MIN, 2016 [facility] Dosing Weight [facility] 55.483, kg, PRN Narcotic Reversal, Start date: 10/09/16 12:41:00 CDT, Duration: 8 doses or times, Stop date: Limited # of times Ketorolac 15 mg, 0.5 mL, Inactive Route: IVP, Drug 2016 [facility] form: INJ, ONCE, [facility] Dosing Weight 55.483, kg, Start date: 10/09/16 12:41:00 CDT, Duration: 1 doses or times, Stop date: 10/09/16 12:41:00 CDTNotes: (Same as:Toradol) IV bolus must be given >15 seconds. Give IM administration slowly and deeply into the muscle. Not for use > 4 days MEDICATION WASTE Product Size: 30 mg Product Wasted: 15 mg Acetaminophen 1,000 mg, Route: Inactive PO, Drug form: 2016 [facility] TAB, ONCE, [facility] Dosing Weight 55.483, kg, PRN Pain Score 1-3, Start date: 10/09/16 12:41:00 CDT, Duration: 1 doses or times, Stop date: Limited # of times esmolol 10 mg, Route: Inactive 10/09[facility] IVP, Q5Min, 2016 [facility] Dosing Weight [facility] 55.483, kg, PRN Other -See Comment, Start date: 10/09/16 12:41:00 CDT, Duration: 5 doses or times, Stop date: Limited # of times ANES Enalaprilat 0.625 mg, Route: Inactive IVP, Q5Min, 2016 [facility] Dosing Weight [facility] 55.483, kg, PRN Elevated BP, Start date: 10/09/16 12:41:00 CDT, Duration: 4 doses or times, Stop date: Limited # of times Labetalol 10 mg, Route: Inactive IVP, Q5Min, 2016 [facility] Dosing Weight [facility] 55.483, kg, PRN Elevated BP, Start date: 10/09/16 12:41:00 CDT, Duration: 5 doses or times, Stop date: Limited # of times Metoprolol 1 mg, Route: Inactive 10/09[facility] IVP, Q5Min, 2016 [facility] Dosing Weight [facility] 55.483, kg, PRN Other -See Comment, Start date: 10/09/16 12:41:00 CDT, Duration: 5 doses or times, Stop date: Limited # of times Hydralazine 10 mg, Route: Inactive 10/09[facility] IVP, Q20Min, 2016 [facility] Dosing Weight [facility] 55.483, kg, PRN Elevated BP, Start date: 10/09/16 12:41:00 CDT, Duration: 2 doses or times, Stop date: Limited # of times Hydromorphone 0.5 mg, Route: Inactive IVP, Q5Min, 2016 [facility] Dosing Weight [facility] 55.483, kg, PRN Pain Score 7-10, Start date: 10/09/16 12:41:00 CDT, Duration: 4 doses or times, Stop date: Limited # of times Clindamycin 900 mg, 6 mL, Inactive Route: IVPB, 2016 [facility] ONCE, Dosing [facility] Weight 55.483, kg, Start date: 10/09/16 12:32:00 CDT, Stop date: 10/09/16 12:32:00 CDTNotes: (Same As: Cleocin) Sodium Chloride 500 mL, Route: Inactive 0.154 MEQ/ML IV, ONCE, Dosing 2016 [facility] Injectable Weight 55.483 [facility] Solution kg, Start date: 10/09/16 12:21:00 CDT, Stop date: 10/09/16 12:21:00 CDT, Bolus NovoLog See Active Instructions, 0 2016 [facility] Refill(s) [facility] sevelamer 800 mg=1 tab, Active carbonate 800 MG PO, TID-Meals, # 2017 [facility] Oral Tablet 90 tab, 0 [facility] [Renvela] Refill(s) Esomeprazole 40 40 mg=1 cap, PO, Active MG Enteric Coated Daily, # 30 cap, 2016 [facility] Capsule 0 Refill(s) [facility] Levothyroxine 75 microgram=1 Active Sodium 0.075 MG tab, PO, Daily, 2016 [facility] Oral Tablet # 30 tab, 1 [facility] [Synthroid] Refill(s) Hydralazine 100 mg=1 tab, Active Hydrochloride 100 PO, BID, # 60 2016 [facility] MG Oral Tablet tab, 0 Refill(s) [facility] pravastatin 20 mg 20 mg=1 tab, PO, Active oral tablet Bedtime, # 30 2016 [facility] tab, 0 Refill(s) [facility] carvedilol 25 MG 25 mg=1 tab, PO, Active Oral Tablet BID, # 60 tab, 0 2016 [facility] [Coreg] Refill(s) [facility] isosorbide 120 mg=2 tab, Active mononitrate 60 mg PO, QPM, 0 2016 [facility] oral tablet, Refill(s) [facility] extended release liothyronine 50 microgram=1 Active sodium 0.05 MG tab, PO, Daily, 2016 [facility] Oral Tablet # 30 tab, 0 [facility] [Cytomel] Refill(s) losartan 50 mg 50 mg=1 tab, PO, Active 09/26[facility] oral tablet BID, 0 Refill(s) 2016 [facility] 24 HR Nifedipine 90 mg=1 tab, PO, Active 90 MG Extended BID, # 90 tab, 1 2016 [facility] Release Tablet Refill(s) [facility] Allergies, Adverse Reactions, Alerts Substance Category Reaction Severity Reaction Status Date Comments Source type Reported penicillins Assertion Drug Active allergy [facility] Immunizations Immunization Date Given Site Status Last Updated Comments Source Results Order Name Results Value Reference Date Interpretation Comments Source Range CHEM PANEL eGFR 7 11/11 Result Comment: The eGFR is calculated using the CKD-EPI formula. In most young, healthy individuals the eGFR will be >90 mL/ min/1.73m2. The eGFR declines with age. An eGFR of 60-89 may be normal in mL/min/1. some populations, particularly the elderly, for whom the CKD-EPI formula has not been extensively validated. Use of the eGFR is not recommended in the following populations: [address] Individuals with unstable creatinine concentrations, including patients and those with serious co-morbid conditions. Patients with extremes in muscle mass or diet. The data above are obtained from the National Kidney Disease Education Program (NKDEP) which additionally recommends that when the eGFR is used in patients with extremes of body mass index for purposes of drug dosing, the eGFR should be multiplied by the estimated BMI. CHEM PANEL Creatinine 5.79 mg/dL 0.50 - 11/11 Lvl 1.40 /2016 [facility] CHEM PANEL CO2 24 meq/L 24 - 32 11/11 [facility] CHEM PANEL Potassium 5.3 meq/L 3.5 - 5.1 11/11 Lvl [facility] CHEM PANEL Chloride Lvl 100 meq/L 95 - 109 11/11 [facility] CHEM PANEL Sodium Lvl 139 meq/L 135 - 145 11/11 [facility] CHEM PANEL BUN 38 mg/dL 7 - 11/11 /2016 [facility] CHEM PANEL Calcium Lvl 8.6 mg/dL 8.5 - 10.5 06/ [facility] CHEM PANEL Glucose Lvl 148 mg/dL 70 - 99 06 [facility] CHEM PANEL AGAP 20.3 meq/L 10.0 - 11/11 MH 20.0 [facility] HEMATOLOGY RDW 15.4 % 11.5 - 11/11 MH 14.5 [facility] HEMATOLOGY MPV 8.7 fL 7.4 - 10.4 06 /2016 [facility] HEMATOLOGY Platelet 217 K/CMM 133 - 450 06 /2016 [facility] HEMATOLOGY Hct 27.0 % 36.0 - 11/11 MH 48.0 /2016 [facility] HEMATOLOGY MCH 32.1 pg 27.0 - 11/11 MH 31.0 [facility] HEMATOLOGY MCV 97.5 fL 80.0 - 11/11 MH 98.0 /2016 [facility] HEMATOLOGY MCHC 32.9 g/dL 32.0 - 11/11 MH 36.0 [facility] HEMATOLOGY WBC 6.4 K/CMM 3.7 - 10.4 11/11 [facility] HEMATOLOGY RBC 2.76 M/CMM 4.20 - 11/11 MH 5.40 /2016 [facility] HEMATOLOGY Hgb 8.9 g/dL 12.0 - 11/11 MH 16.0 [facility] HEMATOLOGY Eosinophils 0.1 K/CMM 0.0 - 0.5 06/ MH # /2017 [facility] HEMATOLOGY Lymphocytes 0.9 K/CMM 1.0 - 5.5 06/ MH # /2016 [facility] HEMATOLOGY Monocytes # 0.7 K/CMM 0.0 - 0.8 06/ [facility] HEMATOLOGY Lymphocytes 14.1 % 20.0 - 06 MH 40.0 [facility] HEMATOLOGY Eosinophils 1.9 % 0.0 - 4.0 06/ [facility] HEMATOLOGY Monocytes 10.7 % 2.0 - 12.0 / [facility] HEMATOLOGY Segs-Bands # 4.7 K/CMM 1.5 - 8.1 / [facility] HEMATOLOGY Basophils 0.7 % 0.0 - 1.0 06/ [facility] HEMATOLOGY Segs 72.6 % 45.0 - 11/11 MH 75.0 /2016 [facility] Chest 1view Chest 1view EXAMINATION: Chest, 1 view 11/10 - DX DX /2016 - [facility] HISTORY: Shortness of breath Read by: Pñea Childress MD Dictated Date/time: 11/10/16 11:03 Electronically Signed by: Peña Childress MD 11/10/16 11:05 FINAL REPORT FINDINGS: Single frontal view of the chest is submitted for interpretation without comparison. There is cardiomegaly. There is a small bilateral pleural effusions. There is no pneumothorax. There is a large ill-defined airspace opacity within the left mid and lower lung. The right lung is clear. IMPRESSION: 1. Large ill-defined airspace opacity within the left mid and lower lung with small bilateral pleural effusions. This large airspace opacity is nonspecific and may represent a large area of focal pneumo melvi consolidation, loculated pleural effusion with atelectasis, or potentially pulmonary mass. FURTHER EVALUATION WITH CONTRAST-ENHANCED CT EXAMINATION OF THE CHEST IS RECOMMENDED. CHEM PANEL Phosphorus 3.9 mg/dL 2.5 - 4.5 11/10 [facility] CHEM PANEL Magnesium 2.6 mg/dL 1.8 - 2.4 11/10 Lvl [facility] ELECTROLYTE Chloride Lvl 102 meq/L 95 - 109 11/10 S [facility] ELECTROLYTE Calcium Lvl 8.6 mg/dL 8.5 - 10.5 11/10 S [facility] ELECTROLYTE Potassium 4.8 meq/L 3.5 - 5.1 11/10 S Lvl [facility] ELECTROLYTE Sodium Lvl 141 meq/L 135 - 145 11/10 S [facility] ELECTROLYTE CO2 29 meq/L 24 - 32 11/10 S [facility] ELECTROLYTE Bili Total 0.7 mg/dL 0.2 - 1.3 11/10 S [facility] ELECTROLYTE Total 6.0 g/dL 6.4 - 8.4 11/10 S [facility] ELECTROLYTE Alk Phos 164 unit/L 39 - 136 11/10 S [facility] ELECTROLYTE AST 14 unit/L 0 - 37 11/10 S [facility] ELECTROLYTE ALT 14 unit/L 0 - 65 11/10 S [facility] ELECTROLYTE Albumin Lvl 2.9 g/dL 3.5 - 5.0 11/10 [facility] ELECTROLYTE Glucose Lvl 153 mg/dL 70 - 99 11/10 [facility] ELECTROLYTE Creatinine 4.87 mg/dL 0.50 - 11/10 S Lvl 1.40 [facility] ELECTROLYTE BUN 28 mg/dL 7 - 22 11/10 [facility] ELECTROLYTE eGFR 9 11/10 Result Comment: The eGFR is calculated using the CKD-EPI formula. In most young, healthy individuals the eGFR will be >90 mL/ min/1.73m2. The eGFR declines with age. An eGFR of 60-89 may be normal in [facility] mL/min/1.7 some populations, particularly the elderly, for whom the CKD-EPI formula has not been extensively validated. Use of the eGFR is not recommended in the following populations: [address] Individuals with unstable creatinine concentrations, including patients and those with serious co-morbid conditions. Patients with extremes in muscle mass or diet. The data above are obtained from the National Kidney Disease Education Program (NKDEP) which additionally recommends that when the eGFR is used in patients with extremes of body mass index for purposes of drug dosing, the eGFR should be multiplied by the estimated BMI. ELECTROLYTE AGAP 14.8 meq/L 10.0 - 11/10 S 20.0 [facility] ELECTROLYTE A/G Ratio 0.9 0.7 - 1.6 11/10 [facility] ELECTROLYTE Globulin 3.1 g/dL 2.7 - 4.2 11/10 [facility] ELECTROLYTE B/C Ratio 6 6 - 25 11/10 [facility] HEMATOLOGY WBC 6.1 K/CMM 3.7 - 10.4 11/10 [facility] HEMATOLOGY Hct 28.5 % 36.0 - 06 MH 48.0 [facility] HEMATOLOGY MCV 96.9 fL 80.0 - 06 MH 98.0 [facility] HEMATOLOGY RBC 2.94 M/CMM 4.20 - 06 MH 5.40 [facility] HEMATOLOGY Hgb 9.5 g/dL 12.0 - 06 MH 16.0 [facility] HEMATOLOGY RDW 15.4 % 11.5 - 06 MH 14.5 [facility] HEMATOLOGY Platelet 192 K/CMM 133 - 450 06/ /2016 [facility] MCH 32.1 pg 27.0 - 06/ MH 31.0 /2016 [facility] HEMATOLOGY MCHC 33.2 g/dL 32.0 - 11/10 MH 36.0 /2016 [facility] MPV 8.6 fL 7.4 - 10.4 11/10 [facility] HEMATOLOGY Eosinophils 0.2 K/CMM 0.0 - 0.5 / MH # /2017 [facility] HEMATOLOGY Lymphocytes 1.2 K/CMM 1.0 - 5.5 / MH # /2017 [facility] HEMATOLOGY Monocytes # 0.6 K/CMM 0.0 - 0.8 / [facility] Eosinophils 3.7 % 0.0 - 4.0 11/10 [facility] Segs-Bands # 4.1 K/CMM 1.5 - 8.1 11/10 [facility] Basophils 0.7 % 0.0 - 1.0 11/10 [facility] Monocytes 9.3 % 2.0 - 12.0 11/10 [facility] Lymphocytes 19.5 % 20.0 - 11/10 MH 40.0 [facility] Segs 66.8 % 45.0 - 11/10 MH 75.0 [facility] POC 11.6 g/dL 12.0 - 10/09 Hemoglobin 16.0 [facility] POC Glucose 110 mg/dL 70 - 99 10/09 [facility] POC 4.8 meq/L 3.5 - 5.1 10/09 Potassium /2016 [facility] POC 34.0 % 36.0 - 10/09 Hematocrit 48.0 [facility] POC Sodium 137 meq/L 135 - 145 10/09 [facility] Spine Spine lumbar PROCEDURE : LUMBAR SPINE MRI 01/18 - [facility] lumbar wo wo contrast /2014 - [facility] contrast MRI MRI REASON FOR EXAM: Lumbar stenosis. Read by: Eulogio Fontenot MD Dictated Date/time: 01/19/15 07:58 Electronically Signed by: Eulogio Fontenot MD 01/19/15 08:52 FINAL REPORT COMPARISON: None. TECHNIQUE: Unenhanced axial and sagittal MR images of the lumbar spine were performed. FINDINGS: Five non-rib bearing lumbar type vertebral bodies are assumed. The lumbar vertebral bodies are normally aligned. There is spondylosis of the lumbar spine with multilevel small anterior marginal osteophytes. There are multilevel Schmorl's nodes involving the vertebral endplates. Most notable is moderate focal concavity of the mid superior vertebral endplate of S1 likely a prominent Schmorl's node. There are mild Modic type I degenerative changes of the vertebral endplates from L2 through L4. There are s evere mixed degenerative endplate changes at L5-S1. Artifact limits evaluation of the visualized lower thoracic spine on the sagittal sequences. There is disc desiccation at all levels of the lumbar spine and visualized lower thoracic spine. The right kidney is not seen. The visualized left kidney is remarkable for diffuse cortical thinning and multiple cortical cysts, the largest cyst measuring 1 cm. The conus medullaris terminates at the level of L2. The visualized lower thoracic spinal cord demonstrates normal signal intensity. T12-L1: Mild facet arthropathy. No significant foraminal narrowing or spinal stenosis. L1-L2: Mid posterior disc bulging measuring a maximal AP dimension of approximately 2 mm. Mild facet arthropathy. No significant foraminal narrowing or spinal stenosis. L2-L3: Bilateral posterolateral disc bulging measuring a maximal AP dimension of approximately 4 mm. Mild facet arthropathy. No significant foraminal narrowing or spinal stenosis. L3-L4: Mild diffuse disc space narrowing most pronounced posteriorly. Broad -based posterior disc bulge/protrusion measuring a maximal AP dimension of approximately 4 mm. Mild facet arthropathy. Thickeni ng of the ligamentum flavum. Mild to moderate bilateral foraminal narrowing most pronounced medially. Moderate spinal stenosis. L4-L5: Bilateral posterolateral disc bulging measuring a maximal AP dimension of approximately 3 mm. Mild facet arthropathy. Thickening of the ligamentum flavum. Mild bilateral foraminal narrowing. Mild spinal stenosis. L5-S1: Mild posterior disc space narrowing. Broad-based posterior disc bulge/protrusion measuring a maximal AP dimension of approximately 4 mm. Moderate facet arthropathy. 8 mm synovial cyst involving t he inferior aspect of the right facets. Mild to moderate right foraminal narrowing most pronounced medially. Mild left foraminal narrowing. Mild spinal stenosis. IMPRESSION: 1. [place] facet arthropathy and disc desiccation. 2. Lumbar spondylosis with multilevel degenerative endplate changes and Schmorl's nodes. 3. Diffuse disc space narrowing, broad-based posterior disc bulge/ protrusion, mild to moderate bilateral foraminal narrowing and moderate spinal stenosis at L3-L4. 4. Bilateral posterolateral disc bulging, mild bilateral foraminal narrowing and mild spinal stenosis at L4-L5. 5. Posterior disc space narrowing, broad-based posterior disc bulge/ protrusion, mild to moderate right foraminal narrowing, mild left foraminal narrowing and mild spinal stenosis at L5-S1. 6. Absent right kidney. 7. Left renal cortical thinning and cysts. SL: 15 Vital Signs Vital Sign Value Date Comments Source Respitory Rate 18 11/11/2016 [facility] Systolic (mm Hg) 147 11/11/2016 [facility] [place] Diastolic (mm Hg) 62 11/11/2016 [facility] [place] Temperature Oral (F) 98.3 F 11/11/2016 [facility] [place] Heart Rate 83 11/11/2016 [facility] [place] Temperature Oral (F) 98.6 F 11/11/2016 [facility] [place] Respitory Rate 18 11/11/2016 [facility] [place] Heart Rate 81 11/11/2016 [facility] [place] Systolic (mm Hg) 130 11/11/2016 [facility] [place] Diastolic (mm Hg) 58 11/11/2016 [facility] [place] Heart Rate 74 11/11/2016 [facility] [place] Systolic (mm Hg) 117 11/11/2016 [facility] [place] Diastolic (mm Hg) 57 11/11/2016 [facility] [place] Respitory Rate 18 11/11/2016 [facility] [place] Temperature Oral (F) 97.8 F 11/11/2016 [facility] [place] BMI Calculated 20.31 11/10/2016 [facility] [place] Weight 58.818 11/10/2016 [facility] [place] Height 170.18 cm 11/10/2016 [facility] [place] Respitory Rate 17 10/09/2016 [facility] [place] Systolic (mm Hg) 100 10/09/2016 [facility] [place] Diastolic (mm Hg) 41 10/09/2016 [facility] [place] Respitory Rate 12 10/09/2016 [facility] [place] Systolic (mm Hg) 111 10/09/2016 [facility] [place] Diastolic (mm Hg) 40 10/09/2016 [facility] [place] Respitory Rate 19 10/09/2016 [facility] [place] Systolic (mm Hg) 112 10/09/2016 [facility] [place] Diastolic (mm Hg) 47 10/09/2016 [facility] [place] Heart Rate 66 10/09/2016 [facility] [place] BMI Calculated 19.16 09/26/2016 [facility] [place] Height 170.18 cm 09/26/2016 [facility] [place] Weight 55.483 09/26/2016 [facility] [place] Encounters Location Location Encounter Encounter Reason Attending ADM DC Status Source Details Type Number For Provider Date Date Visit [facility] Outpt Diag [id number] Laly 01/18 01/19 [facility] 0 Jethro- /2014 [facility] [id number] Arash 10/09 10/09 Ray[facility]undo 0 [facility] [id number] Randy 11/10 11/11 Raymundo 4 Ismael [facility] Procedures Procedure Code Date Perfomer Comments Source Bilateral breast [id number] [facility] Bilateral [id number] [facility] [place] [id number] [facility] [place] arteriovenous shunt [facility] or fistula for dialysis by external cannula Hysterectomy [id number] [facility] [place] Kidney transplant [id number] [facility] [place] Nephrectomy [id number] [facility] [place] Removal of breast [id number] [facility] Vascular surgery [id number] LEFT LEG WITH GREAT TOE AMPUTATION; [facility] [place] procedure<sup>1</patel RIGHT LEG WITH GREAT TOE AMPUTATION [facility] p>
--- OUTSIDE RECORDS SUMMARY | 2018-06-20 04:56 | XMS REPORT | Summary of Care ---
:1955 Author Organization [facility] Address [address] [place] [id number]- Encounter [facility](MADELINE) [id number] Date(s): 10/09/16 - 10/09/[address] [address]- Discharge Disposition: Home or Self Care Attending Physician: Arash Ward MD Referring Physician: Arash Ward MD Vital Signs Most recent to oldest [Reference 1 2 3 Range]: Height 170.18 cm (09/26/16 2:14 PM) Blood Pressure [90-140/60-90 100/41 mmHg 111/40 mmHg 112/47 mmHg mmHg] (10/09/16 5:30 PM) (10/09/16 5:00 PM) (10/09/16 4:55 PM) Respiratory Rate [14-20 BRMIN] 17 BRMIN 12 BRMIN 19 BRMIN (10/09/16 5:35 PM) *LOW* (10/09/16 5:00 PM) (10/09/16 5:30 PM) Peripheral Pulse Rate [60-100 66 bpm bpm] (10/09/16 12:23 PM) Weight 55.483 kg (09/26/16 2:14 PM) Body Mass Index 19.16 m2 (09/26/16 2:14 PM) Problem List Condition Effective Dates Status Health Status Informant Absence of breast, Resolved acquired(Confirmed) Diabetes(Confirmed) Active Thyroid disease(Confirmed) Active End stage renal disease on dialysis Active due to type 1 diabetes mellitus(Confirmed) Hypertension(Confirmed) Active Breast cancer(Confirmed) Resolved Allergies, Adverse Reactions, Alerts Substance Reaction Severity Status penicillins Active Medications ANES acetaminophen 1,000 mg, Route: PO, Drug form: TAB, ONCE, Dosing Weight 55.483, kg, PRN Pain Score 1-3, Start date:10/09/16 12:41:00 CDT, Duration: 1 doses or times, Stop date: Limited # of times Start Date: 10/09/16 Stop Date: 10/09/16 Status: DiscontinuedANES albuterol 0.083% inhalation solution 2.49 mg, Route: NEB, PRN, Dosing Weight 55.483, kg, PRN Respiratory Protocol, Start date: 10/09/16 12:41:00 CDT, Duration: 30 day, Stop date: 11/08/16 12:40: 00 CDT Start Date: 10/09/16 Stop Date: 10/09/16 Status: DiscontinuedANES albuterol 0.083% inhalation solution 2.49 mg, Route: NEB, Q20Min, Dosing Weight 55.483, kg, PRN Wheezing, Priority: STAT, Start date: 10/09/16 12:41:00 CDT, Duration: 30 day, Stop date: 11/08/16 12:40:00 CDT Start Date: 10/09/16 Stop Date: 10/09/16 Status: DiscontinuedANES albuterol 90 mcg/inh inhalation aerosol 2 puff, Route: INHALER, Drug Form: AERO/A, Dosing Weight 55.483, kg, ONCE, Start date: 10/09/16 12:41:00 CDT, Stop date: 10/09/16 12:41:00 CDT, On arrival to PACU Notes: Albuterol 90 microgram/inh 8gm HFAWASTE: Aerosol - Return to Pharmacy Same as: Fozia Mosley Start Date: 10/09/16 Stop Date: 10/09/16 Status: OrderedANES albuterol 90 mcg/inh inhalation aerosol 2 puff, Route: INHALER, Dosing Weight 55.483, kg, Q5Min, PRN Wheezing, Start date: 10/09/16 12:41:00CDT, Duration: 4 doses or times, Stop date: Limited # of times Start Date: 10/09/16 Stop Date: 10/09/16 Status: DiscontinuedANES dexamethasone 4 mg, Route: IVP, ONCE, Dosing Weight 55.483, kg, PRN Nausea & Vomiting, Start date: 10/09/16 12:41:00 CDT Start Date: 10/09/16 Stop Date: 10/09/16 Status: DiscontinuedANES diphenhydrAMINE 12.5 mg, Route: IVP, Drug form: INJ, Q6H, Dosing Weight 55.483, kg, PRN Itching , Start date: 10/09/16 12:41:00 CDT, Duration: 30 day, Stop date: 11/08/16 12:40 :00 CDT Start Date: 10/09/16 Stop Date: 10/09/16 Status: DiscontinuedANES Enalaprilat 0.625 mg, Route: IVP, Q5Min, Dosing Weight 55.483, kg, PRN Elevated BP, Start date: 10/09/16 12:41:00 CDT, Duration: 4 doses or times, Stop date: Limited # of times Start Date: 10/09/16 Stop Date: 10/09/16 Status: DiscontinuedANES ePHEDrine 5 mg, Route: IVP, Q5Min, Dosing Weight 55.483, kg, PRN Low Blood Pressure, Start date: 10/09/16 12:41:00 CDT, Duration: 30 day, Stop date: 11/08/16 12:40: 00 CDT Start Date: 10/09/16 Stop Date: 10/09/16 Status: DiscontinuedANES esmolol 10 mg, Route: IVP, Q5Min, Dosing Weight 55.483, kg, PRN Other -See Comment, Start date: 10/09/16 12:41:00 CDT, Duration: 5 doses or times, Stop date: Limited # of times Start Date: 10/09/16 Stop Date: 10/09/16 Status: DiscontinuedANES flumazenil 0.2 mg, Route: IVP, PRN, Dosing Weight 55.483, kg, PRN Benzodiazepine Reversal, Initial dose, Start date: 10/09/16 12:41:00 CDT, Duration: 30 day, Stop date: 12:40:00 CDT Start Date: 10/09/16 Stop Date: 10/09/16 Status: DiscontinuedANES hydrALAZINE 10 mg, Route: IVP, Q20Min, Dosing Weight 55.483, kg, PRN Elevated BP, Start date : 10/09/16 12:41:00 CDT, Duration: 2 doses or times, Stop date: Limited # of times Start Date: 10/09/16 Stop Date: 10/09/16 Status: DiscontinuedANES HYDROmorphone 0.5 mg, Route: IVP, Q5Min, Dosing Weight 55.483, kg, PRN Pain Score 7-10, Start date: 10/09/16 12:41:00 CDT, Duration: 4 doses or times, Stop date: Limited # of times Start Date: 10/09/16 Stop Date: 10/09/16 Status: DiscontinuedANES ketOROLAC 15 mg, 0.5 mL, Route: IVP, Drug form: INJ, ONCE, Dosing Weight 55.483, kg, Start date: 10/09/16 12:41:00 CDT, Duration: 1 doses or times, Stop date: 12:41:00 CDT Notes: (Same as:Toradol) IV bolus must be given >15 seconds. Give IM administration slowly and deeply into the muscle.Not for use > 4 days MEDICATION WASTE Product Size: 30 mgProduct Wasted: 15 mg Start Date: 10/09/16 Stop Date: 10/09/16 Status: OrderedANES labetalol 10 mg, Route: IVP, Q5Min, Dosing Weight 55.483, kg, PRN Elevated BP, Start date : 10/09/16 12:41:00 CDT, Duration: 5 doses or times, Stop date: Limited # of times Start Date: 10/09/16 Stop Date: 10/09/16 Status: DiscontinuedANES LORazepam 0.5 mg, Route: IVP, Q20Min, Dosing Weight 55.483, kg, PRN Anxiety, Start date: 10/09/16 12:41:00 CDT, Duration: 3 doses or times, Stop date: Limited # of times Start Date: 10/09/16 Stop Date: 10/09/16 Status: DiscontinuedANES meperidine 12.5 mg, Route: IVP, Q30Min, Dosing Weight 55.483, kg, PRN Other -See Comment, For shivering, Start date: 10/09/16 12:41:00 CDT, Duration: 2 doses or times, Stop date: Limited # of times Start Date: 10/09/16 Stop Date: 10/09/16 Status: DiscontinuedANES metoprolol 1 mg, Route: IVP, Q5Min, Dosing Weight 55.483, kg, PRN Other -See Comment, Start date: 10/09/16 12:41:00 CDT, Duration: 5 doses or times, Stop date: Limited # of times Start Date: 10/09/16 Stop Date: 10/09/16 Status: DiscontinuedANES midazolam 1 mg, Route: IVP, Q5Min, Dosing Weight 55.483, kg, PRN Anxiety, Start date: 07/27 12:41:00 CDT, Duration: 2 doses or times, Stop date: Limited # of times Start Date: 10/09/16 Stop Date: 10/09/16 Status: DiscontinuedANES morphine Sulfate 2 mg, Route: IVP, Q5Min, Dosing Weight 55.483, kg, PRN Pain Score 4-6, Start date: 10/09/16 12:41:00CDT, Duration: 5 doses or times, Stop date: Limited # of times Start Date: 10/09/16 Stop Date: 10/09/16 Status: DiscontinuedANES naloxone 0.4 mg, Route: IVP, Q2MIN, Dosing Weight 55.483, kg, PRN Narcotic Reversal, Start date: 10/09/16 12:41:00 CDT, Duration: 8 doses or times, Stop date: Limited # of times Start Date: 10/09/16 Stop Date: 10/09/16 Status: DiscontinuedANES ondansetron 4 mg, Route: IVP, ONCE, Dosing Weight 55.483, kg, PRN Nausea & Vomiting, Start date: 10/09/16 12:41:00 CDT Start Date: 10/09/16 Stop Date: 10/09/16 Status: DiscontinuedANES promethazine 6.25 mg, Route: IVPB, ONCE, Dosing Weight 55.483, kg, PRN Nausea & Vomiting , Start date: 10/09/16 12:41:00 CDT Start Date: 10/09/16 Stop Date: 10/09/16 Status: DiscontinuedANES racepinephrine 0.5 mL, Route: NEB, Dosing Weight 55.483, kg, PRN, PRN Shortness of breath, Start date: 10/09/16 12:41:00 CDT, Duration: 30 day, Stop date: 11/08/16 12:40: 00 CDT Start Date: 10/09/16 Stop Date: 10/09/16 Status: DiscontinuedANES scopolamine 1.5 mg transdermal film 1 patch, Route: TOP, Drug Form: ERFILM, Dosing Weight 55.483, kg, ONCE, Apply behind ear. Avoid usein elderly., Start date: 10/09/16 12:41:00 CDT, Stop date : 10/09/16 12:41:00 CDT Notes: Change patch every 72 hours (Same as: Transderm-Scop) Start Date: 10/09/16 Stop Date: 10/09/16 Status: OrderedCleocin Phosphate (ANES) Route: IV, Drug form: INJ, ONCE, Stop date: 10/09/16 14:32:00 CDT Start Date: 10/09/16 Stop Date: 10/09/16 Status: Completedclindamycin + sodium chloride 0.9% INJ 50 mL 900 mg, 6 mL, Route: IVPB, ONCE, Dosing Weight 55.483, kg, Start date: 10/09/16 12:32:00 CDT, Stop date: 10/09/16 12:32:00 CDT Notes: (Same As: Cleocin) Start Date: 10/09/16 Stop Date: 10/09/16 Status: OrderedCoreg 25 mg oral tablet 25 mg=1 tab, PO, BID, # 60 tab, 0 Refill(s) Start Date: 09/26/16 Status: OrderedCytomel 50 mcg oral tablet 50 microgram=1 tab, PO, Daily, # 30 tab, 0 Refill(s) Start Date: 09/26/16 Status: Ordereddexamethasone (ANES) Route: IV, Drug form: INJ, ONCE, Stop date: 10/09/16 14:27:00 CDT Start Date: 10/09/16 Stop Date: 10/09/16 Status: CompletedePHEDrine (ANES) Route: IV, Drug form: INJ, ONCE, Stop date: 10/09/16 14:27:00 CDT Start Date: 10/09/16 Stop Date: 10/09/16 Status: CompletedEPINEPHrine (ANES) Route: IV, Drug form: INJ, ONCE, Stop date: 10/09/16 14:53:00 CDT Start Date: 10/09/16 Stop Date: 10/09/16 Status: Completedesomeprazole 40 mg oral delayed release capsule 40 mg=1 cap, PO, Daily, # 30 cap, 0 Refill(s) Start Date: 09/26/16 Status: OrderedExparel 266 mg, Route: InFILtration(local), Drug Form: INJ, Dosing Weight 55.483, kg, ONCE, Start date: 10/09/16 12:46:00 CDT, Stop date: 10/09/16 12:46:00 CDT Notes: (Same as: Exparel) NOT FOR IV use Postoperative analgesia: Infiltration (local): Dose is based on surgical site and volume required to cover the area (in general, the maximum total dose is 266 mg).Bunionectomy: 7 mL into the tissues surrounding the osteotomy and 1 mL into the subcutaneous tissue of the surgical site (total dose=8 mL [106 mg])Hemorrhoidectomy: 30 mL ( 20 mL vial diluted with 10 mL NS) divided and administered as 6 injections of 5 mL each (total dose=30 mL [266 mg]) Start Date: 10/09/16 Stop Date: 10/09/16 Status: OrderedfentaNYL (ANES) Route: IV, Drug form: INJ, ONCE, Stop date: 10/09/16 14:27:00 CDT Start Date: 10/09/16 Stop Date: 10/09/16 Status: CompletedfentaNYL (ANES) Route: IV, Drug form: INJ, ONCE, Stop date: 10/09/16 16:09:00 CDT Start Date: 10/09/16 Stop Date: 10/09/16 Status: CompletedhydrALAZINE 100 mg oral tablet 100 mg=1 tab, PO, BID, # 60 tab, 0 Refill(s) Start Date: 09/26/16 Status: Orderedisosorbide mononitrate 60 mg oral tablet, extended release 120 mg=2 tab, PO, QPM, 0 Refill(s) Start Date: 09/26/16 Status: Orderedlidocaine (ANES) Route: IV, Drug form: INJ, ONCE, Stop date: 10/09/16 14:43:00 CDT Start Date: 10/09/16 Stop Date: 10/09/16 Status: Completedlosartan 50 mg oral tablet 50 mg=1 tab, PO, BID, 0 Refill(s) Start Date: 09/26/16 Status: Orderedmidazolam (ANES) Route: IV, Drug form: SOLN, ONCE, Stop date: 10/09/16 14:43:00 CDT Start Date: 10/09/16 Stop Date: 10/09/16 Status: CompletedNIFEdipine 90 mg oral tablet, extended release 90 mg=1 tab, PO, BID, # 90 tab, 1 Refill(s) Start Date: 09/26/16 Status: OrderedNovoLOG See Instructions, 0 Refill(s) Start Date: 09/26/16 Status: Orderedondansetron (ANES) Route: IV, Drug form: INJ, ONCE, Stop date: 10/09/16 16:09:00 CDT Start Date: 10/09/16 Stop Date: 10/09/16 Status: Completedpravastatin 20 mg oral tablet 20 mg=1 tab, PO, Bedtime, # 30 tab, 0 Refill(s) Start Date: 09/26/16 Status: Orderedpropofol (ANES) Route: IV, Drug form: INJ, ONCE, Stop date: 10/09/16 14:27:00 CDT Start Date: 10/09/16 Stop Date: 10/09/16 Status: CompletedRenvela 800 mg oral tablet 800 mg=1 tab, PO, TID-Meals, # 90 tab, 0 Refill(s) Start Date: 09/26/16 Stop Date: 10/26/16 Status: OrderedSodium Chloride 0.9% (Bolus) IV 500 mL, Route: IV, ONCE, Dosing Weight 55.483 kg, Start date: 10/09/16 12:21:00 CDT, Stop date: 10/09/16 12:21:00 CDT, Bolus Start Date: 10/09/16 Stop Date: 10/09/16 Status: Completedsodium chloride 0.9% 1000 ml INJ (ANES) Route: IV, Total Volume: 1,000, Start date: 10/09/16 13:22:00 CDT, Stop date: 14:22:00 CDT Start Date: 10/09/16 Stop Date: 10/09/16 Status: CompletedSynthroid 75 mcg (0.075 mg) oral tablet 75 microgram=1 tab, PO, Daily, # 30 tab, 1 Refill(s) Start Date: 09/26/16 Status: Ordered Results ELECTROLYTES Most recent to oldest [Reference Range]: 1 POC Sodium [135-145 mEq/L] 137 mEq/L (10/09/16 12:57 PM) POC Potassium [3.5-5.1 mEq/L] 4.8 mEq/L (10/09/16 12:57 PM) CHEM PANEL Most recent to oldest [Reference Range]: 1 POC Glucose [70-99 mg/dL] 110 mg/dL *HI* (10/09/16 12:57 PM) HEMATOLOGY Most recent to oldest [Reference Range]: 1 POC Hemoglobin [12.0-16.0 g/dL] 11.6 g/dL *LOW* (10/09/16 12:57 PM) POC Hematocrit [36.0-48.0 %] 34.0 % *LOW* (10/09/16 12:57 PM) Immunizations No data available for this section Procedures Procedure Date Related Diagnosis Body Site Bilateral breast implants Bilateral mastectomy Creation of arteriovenous shunt or fistula for dialysis by external cannula Hysterectomy Kidney transplant Nephrectomy Removal of breast implant Vascular surgery procedure1 1LEFT LEG WITH GREAT TOE AMPUTATION; RIGHT LEG WITH GREAT TOE AMPUTATION Social History Social History Type Response Smoking Status Unknown if ever smoked; Exposure to Tobacco Smoke None; Cigarette Smoking Last 365 Days No; Reg Smoking Cessation Counseling No Assessment and Plan No data available for this section
--- OUTSIDE RECORDS SUMMARY | 2018-06-20 04:56 | XMS REPORT | Summary of Care ---
:1955 Author Organization [facility] Address [address] [place] [address]- Encounter [facility] Encntr_alias(FIN) [id number] Date(s): 01/18/15 - 01/18/15 [facility] Outpatient Imaging [address] [address] [phone] Discharge Disposition: Home Attending Physician: Laly Mendoza MD Vital Signs No data available for this section Problem List No data available for this section Allergies, Adverse Reactions, Alerts No data available for this section Medications No data available for this section Results No data available for this section Immunizations No data available for this section Procedures No data available for this section Social History No data available for this section Assessment and Plan No data available for this section
--- OUTSIDE RECORDS SUMMARY | 2018-06-20 04:56 | XMS REPORT | Summary of Care ---
:1955 Author Organization [facility] Address [address] [place] [id number] Encounter [facility](MADELINE) [id number] Date(s): 11/10/16 - 11/11/[address] [address]- Discharge Disposition: Home or Self Care Attending Physician: Randy Guevara DO Admitting Physician: Randy Guevara DO Vital Signs Most recent to oldest [Reference 1 2 3 Range]: Height 170.18 cm (11/10/16 3:39 AM) Temperature Oral [96.4-99.1 DegF] 98.3 DegF 98.6 DegF 97.8 DegF (11/11/16 7:12 AM) (11/11/16 4:00 AM) (11/11/16 12:00 AM) Blood Pressure [90-140/60-90 147/62 mmHg 130/58 mmHg 117/57 mmHg mmHg] *HI* (11/11/16 4:00 AM) (11/11/16 12:00 AM) (11/11/16 7:12 AM) Respiratory Rate [14-20 BRMIN] 18 BRMIN 18 BRMIN 18 BRMIN (11/11/16 7:12 AM) (11/11/16 4:00 AM) (11/11/16 12:00 AM) Peripheral Pulse Rate [60-100 83 bpm 81 bpm 74 bpm bpm] (11/11/16 7:12 AM) (11/11/16 4:00 AM) (11/11/16 12:00 AM) Weight 58.818 kg (11/10/16 3:39 AM) Body Mass Index 20.31 m2 (11/10/16 3:39 AM) Problem List Condition Effective Dates Status Health Status Informant Absence of breast, Resolved acquired(Confirmed) Diabetes(Confirmed) Active Thyroid disease(Confirmed) Active End stage renal disease on dialysis Active due to type 1 diabetes mellitus(Confirmed) Hypertension(Confirmed) Active Breast cancer(Confirmed) Resolved Allergies, Adverse Reactions, Alerts Substance Reaction Severity Status penicillins Active Medications acetaminophen 650 mg, 2 tab, Route: PO, Drug form: TAB, Q4H, Dosing Weight 58.818, kg, PRN Pain 1-3/Temp > 100.4 F, Start date: 11/10/16 2:57:00 CDT, Duration: 30 day, Stop date: 12/10/16 2:56:00 CDT Notes: Do not exceed 4 gm/day. (Same as: Tylenol) Start Date: 11/10/16 Stop Date: 11/11/16 Status: Discontinuedacetaminophen (ANES) Route: IV, Drug form: INJ, ONCE, Stop date: 11/10/16 12:26:00 CDT Start Date: 11/10/16 Stop Date: 11/10/16 Status: Completedacetaminophen-hydrocodone 325 mg-5 mg oral tablet 1 tab, Route: PO, Drug Form: TAB, Dosing Weight 58.818, kg, Q4H, PRN Pain Score 4-6, Start date: 11/10/16 2:57:00 CDT, Duration: 30 day, Stop date: 12/10/16 2: 56:00 CDT Notes: (Same as: [place] 325/5) Do not exceed 4gm/day of acetaminophen. Start Date: 11/10/16 Stop Date: 11/10/16 Status: Discontinuedacetaminophen-hydrocodone 325 mg-7.5 mg oral tablet 1 tab, Route: PO, Drug Form: TAB, Dosing Weight 58.818, kg, Q4H, PRN Pain Score 4-6, Start date: 11/10/16 16:03:00 CDT, Duration: 30 day, Stop date: 12/10/16 16 :02:00 CDT Notes: Same as [place] 325-7.5mg Do not exceed 4gm/day of acetaminophen. Start Date: 11/10/16 Stop Date: 11/11/16 Status: DiscontinuedANES diphenhydrAMINE 12.5 mg, 0.25 mL, Route: IVP, Drug form: INJ, Q6H, Dosing Weight 58.818, kg, PRN Itching, Start date: 11/10/16 12:11:00 CDT, Duration: 30 day, Stop date: 08/24 12:10:00 CDT Notes: (Same as: Benadryl) Start Date: 11/10/16 Stop Date: 11/10/16 Status: DiscontinuedANES flumazenil 0.2 mg, 2 mL, Route: IVP, Drug form: INJ, PRN, Dosing Weight 58.818, kg, PRN Benzodiazepine Reversal, Initial dose, Start date: 11/10/16 12:11:00 CDT, Duration: 30 day, Stop date: 12/10/16 12:10:00 CDT Notes: (Same as: Romazicon) Start Date: 11/10/16 Stop Date: 11/10/16 Status: DiscontinuedANES HYDROmorphone 0.5 mg, 0.25 mL, Route: IVP, Drug form: INJ, Q5Min, Dosing Weight 58.818, kg, PRN Pain Score 7-10, Start date: 11/10/16 12:11:00 CDT, Duration: 4 doses or times, Stop date: Limited # of times Notes: Same as Dilaudid Start Date: 11/10/16 Stop Date: 11/10/16 Status: DiscontinuedANES meperidine 12.5 mg, 0.25 mL, Route: IVP, Drug form: INJ, Q30Min, Dosing Weight 58.818, kg, PRN Other -See Comment, For shivering, Start date: 11/10/16 12:11:00 CDT, Duration: 2 doses or times, Stop date: Limited # of times Notes: (Same as: Demerol) "Use Precaution in Elderly, Seizure disorders, and Renal impairment" Start Date: 11/10/16 Stop Date: 11/10/16 Status: DiscontinuedANES morphine Sulfate 4 mg, 1 mL, Route: IVP, Drug form: INJ, Q5Min, Dosing Weight 58.818, kg, PRN Pain Score 7-10, Start date: 11/10/16 12:11:00 CDT, Duration: 3 doses or times, Stop date: Limited # of times Notes: (Same as:MORPhine Sulfate) Start Date: 11/10/16 Stop Date: 11/10/16 Status: DiscontinuedANES morphine Sulfate 2 mg, 1 mL, Route: IVP, Drug form: INJ, Q5Min, Dosing Weight 58.818, kg, PRN Pain Score 4-6, Start date: 11/10/16 12:11:00 CDT, Duration: 5 doses or times, Stop date: Limited # of times Notes: (Same as:MORPhine Sulfate) Start Date: 11/10/16 Stop Date: 11/10/16 Status: DiscontinuedANES naloxone 0.4 mg, 1 mL, Route: IVP, Drug form: INJ, Q2MIN, Dosing Weight 58.818, kg, PRN Narcotic Reversal, Start date: 11/10/16 12:11:00 CDT, Duration: 8 doses or times , Stop date: Limited # of times Notes: Same as Narcan Start Date: 11/10/16 Stop Date: 11/10/16 Status: DiscontinuedANES ondansetron 4 mg, 2 mL, Route: IVP, Drug form: INJ, ONCE, Dosing Weight 58.818, kg, PRN Nausea & Vomiting, Start date: 11/10/16 12:11:00 CDT Notes: (Same as: Zofran) MEDICATION WASTE Product Size: 4 mgProduct Wasted: ___ mg Start Date: 11/10/16 Stop Date: 11/10/16 Status: DiscontinuedANES promethazine + sodium chloride 0.9% INJ 50 mL 6.25 mg, 0.25 mL, Route: IVPB, ONCE, Dosing Weight 58.818, kg, PRN Nausea & Vomiting, Start date: 11/10/16 12:11:00 CDT Notes: Do not give IV push. (Same as: Phenergan) Start Date: 11/10/16 Stop Date: 11/10/16 Status: DiscontinuedBD Normal Saline Flush 10 mL, Route: IVP, Drug Form: INJ, PRN, PRN Line Flush, Start date: 11/10/16 3: 07:00 CDT, Duration: 30 day, Stop date: 12/10/16 3:06:00 CDT Notes: (Same as: BD Posiflush) Start Date: 11/10/16 Stop Date: 11/11/16 Status: DiscontinuedBD Normal Saline Flush 5 mL, Route: IVP, Drug Form: INJ, PRN, PRN Line Flush, Start date: 11/10/16 3:07 :00 CDT, Duration: 30 day, Stop date: 12/10/16 3:06:00 CDT Notes: (Same as: BD Posiflush) Start Date: 11/10/16 Stop Date: 11/11/16 Status: Discontinuedbifidobacterium-lactobacillus oral tablet, chewable 1 tab, CHEW, Daily, # 30 tab, 0 Refill(s) Start Date: 11/11/16 Status: OrderedCleocin HCl + sodium chloride 0.9% INJ 50 mL 600 mg, 4 mL, Route: IVPB, ABXQ8H, Dosing Weight 58.818, kg, Start date: 20:00:00 CDT, Duration: 30 day, Stop date: 12/10/16 12:00:00 CDT, ABX Indication: Surgical Prophylaxis Notes: (clindamycin 150 mg/1 ml (600 mg/4 ml VL) INJ) (Same As: Cleocin) Start Date: 11/10/16 Stop Date: 11/11/16 Status: DiscontinuedCleocin Phosphate (ANES) + sodium chloride 0.9% 100 ml INJ ( ANES) Route: IV, Drug form: INJ, ONCE, Stop date: 11/10/16 12:21:00 CDT Start Date: 11/10/16 Stop Date: 11/10/16 Status: Completedclindamycin 150 mg oral capsule 150 mg=1 cap, PO, Q6H, X 14 day, # 56 cap, 0 Refill(s) Start Date: 11/11/16 Stop Date: 11/25/16 Status: OrderedCoreg 25 mg, 1 tab, Route: PO, Drug form: TAB, BID, Dosing Weight 58.818, kg, Start date: 11/10/16 9:00:00CDT, Duration: 30 day, Stop date: 12/09/16 17:00:00 CDT Notes: Give with food. (Same As: Coreg) Start Date: 11/10/16 Stop Date: 11/11/16 Status: DiscontinuedCytomel 50 microgram, 2 tab, Route: PO, Drug form: TAB, Q630AM, Dosing Weight 58.818, kg , Start date: 11/10/16 6:30:00 CDT, Duration: 30 day, Stop date: 12/09/16 6:30: 00 CDT Notes: (Same as: Cytomel) Start Date: 11/10/16 Stop Date: 11/11/16 Status: DiscontinuedDextrose 50% Syringe 25 gm, 50 mL, Route: IVP, Drug Form: INJ, Dosing Weight 58.818, kg, PRN, PRN Blood Glucose Results, Start date: 11/10/16 3:25:00 CDT, Duration: 30 day, Stop date: 12/10/16 3:24:00 CDT Start Date: 11/10/16 Stop Date: 11/11/16 Status: DiscontinuedDextrose 50% Syringe 12.5 gm, 25 mL, Route: IVP, Drug Form: INJ, Dosing Weight 58.818, kg, PRN, PRN Blood Glucose Results, Start date: 11/10/16 3:25:00 CDT, Duration: 30 day, Stop date: 12/10/16 3:24:00 CDT Start Date: 11/10/16 Stop Date: 11/11/16 Status: Discontinueddocusate 100 mg, 1 cap, Route: PO, Drug form: CAP, BID, Dosing Weight 58.818, kg, Start date: 11/10/16 9:00:00 CDT, Duration: 30 day, Stop date: 12/09/16 17:00:00 CDT Notes: (Same as: Colace) (Do Not Crush) Start Date: 11/10/16 Stop Date: 11/11/16 Status: DiscontinuedePHEDrine (ANES) Route: IV, Drug form: INJ, ONCE, Stop date: 11/10/16 12:21:00 CDT Start Date: 11/10/16 Stop Date: 11/10/16 Status: Completedesomeprazole 40 mg, Route: PO, Drug form: ECCAP, Daily, Dosing Weight 58.818, kg, Start date : 11/10/16 9:00:00 CDT, Duration: 30 day, Stop date: 12/09/16 9:00:00 CDT Start Date: 11/10/16 Stop Date: 11/10/16 Status: Deletedfamotidine (ANES) Route: IV, Drug form: INJ, ONCE, Stop date: 11/10/16 12:26:00 CDT Start Date: 11/10/16 Stop Date: 11/10/16 Status: CompletedfentaNYL (ANES) Route: IV, Drug form: INJ, ONCE, Stop date: 11/10/16 12:21:00 CDT Start Date: 11/10/16 Stop Date: 11/10/16 Status: Completedglucagon 1 mg, Route: IM, Drug form: PDR/INJ, PRN, Dosing Weight 58.818, kg, PRN Blood Glucose Results, Startdate: 11/10/16 3:25:00 CDT, Duration: 30 day, Stop date: 12/10/16 3:24:00 CDT Start Date: 11/10/16 Stop Date: 11/11/16 Status: DiscontinuedhydrALAZINE 100 mg oral tablet 100 mg, 2 tab, Route: PO, Drug form: TAB, BID, Dosing Weight 58.818, kg, Start date: 11/10/16 9:00:00 CDT, Duration: 30 day, Stop date: 12/09/16 21:00:00 CDT Notes: (Same as: Apresoline) May interfere w/enteral feedings Take With Food Start Date: 11/10/16 Stop Date: 11/11/16 Status: Discontinuedinsulin aspart 10 unit, 0.1 mL, Route: SUB-Q, Drug form: SOLN, Sliding Scale, Dosing Weight 58.818, kg, PRN Blood Glucose Results, Start date: 11/10/16 3:25:00 CDT, Duration: 30 day, Stop date: 12/10/16 3:24:00 CDT Notes: Roll in palms of hands gently; Do not shake vigorously. (Same as: NovoLOG)"single patient use only"WASTE: F/P - Black; E - Municipal Trash Bin Stable for 28 days at room temperature.Expires in days from Date Start Date: 11/10/16 Stop Date: 11/11/16 Status: Discontinuedinsulin aspart 8 unit, 0.08 mL, Route: SUB-Q, Drug form: SOLN, Sliding Scale, Dosing Weight 58.818, kg, PRN Blood Glucose Results, Start date: 11/10/16 3:25:00 CDT, Duration: 30 day, Stop date: 12/10/16 3:24:00 CDT Notes: Roll in palms of hands gently; Do not shake vigorously. (Same as: Art CircleLOG)"single patient use only"WASTE: F/P - Black; E - Municipal Trash Bin Stable for 28 days at room temperature.Expires in days from Date Start Date: 11/10/16 Stop Date: 11/11/16 Status: Discontinuedinsulin aspart 2 unit, 0.02 mL, Route: SUB-Q, Drug form: SOLN, Sliding Scale, Dosing Weight 58.818, kg, PRN Blood Glucose Results, Start date: 11/10/16 3:25:00 CDT, Duration: 30 day, Stop date: 12/10/16 3:24:00 CDT Notes: Roll in palms of hands gently; Do not shake vigorously. (Same as: Art CircleLOG)"single patient use only"WASTE: F/P - Black; E - Municipal Trash Bin Stable for 28 days at room temperature.Expires in days from Date Start Date: 11/10/16 Stop Date: 11/11/16 Status: Discontinuedinsulin aspart 4 unit, 0.04 mL, Route: SUB-Q, Drug form: SOLN, Sliding Scale, Dosing Weight 58.818, kg, PRN Blood Glucose Results, Start date: 11/10/16 3:25:00 CDT, Duration: 30 day, Stop date: 12/10/16 3:24:00 CDT Notes: Roll in palms of hands gently; Do not shake vigorously. (Same as: Art CircleLOG)"single patient use only"WASTE: F/P - Black; E - Municipal Trash Bin Stable for 28 days at room temperature.Expires in days from Date Start Date: 11/10/16 Stop Date: 11/11/16 Status: Discontinuedinsulin aspart 6 unit, 0.06 mL, Route: SUB-Q, Drug form: SOLN, Sliding Scale, Dosing Weight 58.818, kg, PRN Blood Glucose Results, Start date: 11/10/16 3:25:00 CDT, Duration: 30 day, Stop date: 12/10/16 3:24:00 CDT Notes: Roll in palms of hands gently; Do not shake vigorously. (Same as: NovoLOG)"single patient use only"WASTE: F/P - Black; E - Municipal Trash Bin Stable for 28 days at room temperature.Expires in days from Date Start Date: 11/10/16 Stop Date: 11/11/16 Status: Discontinuedisosorbide mononitrate 120 mg, 2 tab, Route: PO, Drug form: ERTAB, QPM, Dosing Weight 58.818, kg, Start date: 11/10/16 21:00:00 CDT, Duration: 30 day, Stop date: 12/09/16 21:00: 00 CDT Notes: (Same as:Imdur)Do not crush Start Date: 11/10/16 Stop Date: 11/11/16 Status: Discontinuedmidazolam (ANES) Route: IV, Drug form: SOLN, ONCE, Stop date: 11/10/16 12:21:00 CDT Start Date: 11/10/16 Stop Date: 11/10/16 Status: Completedmorphine Sulfate 2 mg, 1 mL, Route: IVP, Drug form: INJ, Q4H, Dosing Weight 58.818, kg, PRN Pain Score 7-10, Start date: 11/10/16 2:57:00 CDT, Duration: 30 day, Stop date: 12/10 2:56:00 CDT Notes: (Same as:MORPhine Sulfate) Start Date: 11/10/16 Stop Date: 11/11/16 Status: Discontinuedmorphine Sulfate 4 mg, 1 mL, Route: IM, Drug form: INJ, Q4H, Dosing Weight 58.818, kg, PRN Pain Score 7-10, Start date: 11/10/16 16:04:00 CDT, Duration: 30 day, Stop date: 08/24 16:03:00 CDT Notes: (Same as:MORPhine Sulfate) Start Date: 11/10/16 Stop Date: 11/11/16 Status: Discontinuedondansetron 4 mg, Route: IVP, Drug form: INJ, Q6H, Dosing Weight 58.818, kg, PRN Nausea &amp ; Vomiting, Start date: 11/10/16 2:57:00 CDT, Duration: 30 day, Stop date: 12/10 2:56:00 CDT Notes: (Same as: Anthonyan) MEDICATION WASTE Product Size: 4 mgProduct Wasted: ___ mg Start Date: 11/10/16 Stop Date: 11/11/16 Status: Discontinuedondansetron (ANES) Route: IV, Drug form: INJ, ONCE, Stop date: 11/10/16 12:56:00 CDT Start Date: 11/10/16 Stop Date: 11/10/16 Status: Completedpravastatin 20 mg, 1 tab, Route: PO, Drug form: TAB, Bedtime, Dosing Weight 58.818, kg, Start date: 11/10/16 21:00:00 CDT, Duration: 30 day, Stop date: 12/09/16 21:00: 00 CDT Notes: (Same as: Pravachol) Start Date: 11/10/16 Stop Date: 11/11/16 Status: Discontinuedpropofol (ANES) Route: IV, Drug form: INJ, ONCE, Stop date: 11/10/16 12:21:00 CDT Start Date: 11/10/16 Stop Date: 11/10/16 Status: CompletedProtonix 40 mg, 1 tab, Route: PO, Drug form: ECTAB, Before Dinner, Start date: 11/10/16 16:30:00 CDT, Duration: 30 day, Stop date: 12/09/16 16:30:00 CDT Notes: Tablet should not be chewed or crushed.(Same as: Protonix) Start Date: 11/10/16 Stop Date: 11/11/16 Status: DiscontinuedRenvela 800 mg, 1 tab, Route: PO, Drug form: TAB, TID-Meals, Dosing Weight 58.818, kg, Start date: 11/10/16 8:00:00 CDT, Duration: 30 day, Stop date: 12/09/16 17:00: 00 CDT Notes: Same as: Renvela Start Date: 11/10/16 Stop Date: 11/11/16 Status: Discontinuedsodium chloride 0.9% 1000 ml INJ (ANES) Route: IV, Total Volume: 1,000, Start date: 11/10/16 11:17:00 CDT, Stop date: 12:17:00 CDT Start Date: 11/10/16 Stop Date: 11/10/16 Status: CompletedSodium Chloride 0.9% IV 25 mL, Route: IV, Start date: 11/10/16 3:07:00 CDT, Duration: 30 day, Stop date : 12/10/16 3:06:00 CDT, PRN Line Flush Start Date: 11/10/16 Stop Date: 11/11/16 Status: Discontinuedsuccinylcholine (ANES) Route: IV, Drug form: INJ, ONCE, Stop date: 11/10/16 12:11:00 CDT Start Date: 11/10/16 Stop Date: 11/10/16 Status: CompletedSynthroid 75 microgram, 1 tab, Route: PO, Drug form: TAB, Q630AM, Dosing Weight 58.818, kg , Start date: 11/10/16 6:30:00 CDT, Duration: 30 day, Stop date: 12/09/16 6:30: 00 CDT Notes: Take 1 hour before or 2 hours after meal; Enteral feeds may interefere with the absorption ofthis medication. (Same as:Synthroid, Levothroid) Start Date: 11/10/16 Stop Date: 11/11/16 Status: Discontinued Results ELECTROLYTES Most recent to oldest [Reference Range]: 1 2 Sodium Lvl [135-145 mEq/L] 139 mEq/L 141 mEq/L (11/11/16 2:48 AM) (11/10/16 4:12 AM) Potassium Lvl [3.5-5.1 mEq/L] 5.3 mEq/L 4.8 mEq/L *HI* (11/10/16 4:12 AM) (11/11/16 2:48 AM) Chloride Lvl [95-109 mEq/L] 100 mEq/L 102 mEq/L (11/11/16 2:48 AM) (11/10/16 4:12 AM) CO2 [24-32 mEq/L] 24 mEq/L 29 mEq/L (11/11/16 2:48 AM) (11/10/16 4:12 AM) AGAP [10.0-20.0 mEq/L] 20.3 mEq/L 14.8 mEq/L *HI* (11/10/16 4:12 AM) (11/11/16 2:48 AM) CHEM PANEL Most recent to oldest [Reference Range]: 1 2 Creatinine Lvl [0.50-1.40 mg/dL] 5.79 mg/dL 4.87 mg/dL *HI* *HI* (11/11/16 2:48 AM) (11/10/16 4:12 AM) eGFR 7 mL/min/1.73m2 1 9 mL/min/1.73m2 2 *NA* *NA* (11/11/16 2:48 AM) (11/10/16 4:12 AM) BUN [7-22 mg/dL] 38 mg/dL 28 mg/dL *HI* *HI* (11/11/16 2:48 AM) (11/10/16 4:12 AM) B/C Ratio [6-25] 6 (11/10/16 4:12 AM) Glucose Lvl [70-99 mg/dL] 148 mg/dL 153 mg/dL *HI* *HI* (11/11/16 2:48 AM) (11/10/16 4:12 AM) Total Protein [6.4-8.4 g/dL] 6.0 g/dL *LOW* (11/10/16 4:12 AM) Albumin Lvl [3.5-5.0 g/dL] 2.9 g/dL *LOW* (11/10/16 4:12 AM) Globulin [2.7-4.2 g/dL] 3.1 g/dL (11/10/16 4:12 AM) A/G Ratio [0.7-1.6] 0.9 (11/10/16 4:12 AM) Calcium Lvl [8.5-10.5 mg/dL] 8.6 mg/dL 8.6 mg/dL (11/11/16 2:48 AM) (11/10/16 4:12 AM) Phosphorus [2.5-4.5 mg/dL] 3.9 mg/dL (11/10/16 4:12 AM) Magnesium Lvl [1.8-2.4 mg/dL] 2.6 mg/dL *HI* (11/10/16 4:12 AM) ALT [0-65 unit/L] 14 unit/L (11/10/16 4:12 AM) AST [0-37 unit/L] 14 unit/L (11/10/16 4:12 AM) Alk Phos [39-136 unit/L] 164 unit/L *HI* (11/10/16 4:12 AM) Bili Total [0.2-1.3 mg/dL] 0.7 mg/dL (11/10/16 4:12 AM) 1Result Comment: The eGFR is calculated using the CKD-EPI formula. In most young , healthy individualsthe eGFR will be >90 mL/min/1.73m2. The eGFR declines with age. An eGFR of 60-89 may be normal in some populations, particularly the elderly, for whom the CKD-EPI formula has not been extensively validated. Use of the eGFR is not recommended in the following populations: Individuals with unstable creatinine concentrations, including patients and those with serious co-morbid conditions. Patients with extremes in muscle mass or diet. The data above are obtained from the National Kidney Disease Education Program ( NKDEP) which additionally recommends that when the eGFR is used in patients with extremes of body mass index for purposesof drug dosing, the eGFR should be multiplied by the estimated BMI.2Result Comment: The eGFR is calculated using the CKD-EPI formula. In most young, healthy individualsthe eGFR will be >90 mL/ min/1.73m2. The eGFR declines with age. An eGFR of 60-89 may be normal in some populations, particularly the elderly, for whom the CKD-EPI formula has not been extensively validated. Use of the eGFR is not recommended in the following populations: Individuals with unstable creatinine concentrations, including patients and those with serious co-morbid conditions. Patients with extremes in muscle mass or diet. The data above are obtained from the National Kidney Disease Education Program ( NKDEP) which additionally recommends that when the eGFR is used in patients with extremes of body mass index for purposesof drug dosing, the eGFR should be multiplied by the estimated BMI.HEMATOLOGY Most recent to oldest [Reference Range]: 1 2 WBC [3.7-10.4 K/CMM] 6.4 K/CMM 6.1 K/CMM (11/11/16 2:48 AM) (11/10/16 4:12 AM) RBC [4.20-5.40 M/CMM] 2.76 M/CMM 2.94 M/CMM *LOW* *LOW* (11/11/16 2:48 AM) (11/10/16 4:12 AM) Hgb [12.0-16.0 g/dL] 8.9 g/dL 9.5 g/dL *LOW* *LOW* (11/11/16 2:48 AM) (11/10/16 4:12 AM) Hct [36.0-48.0 %] 27.0 % 28.5 % *LOW* *LOW* (11/11/16 2:48 AM) (11/10/16 4:12 AM) MCV [80.0-98.0 fL] 97.5 fL 96.9 fL (11/11/16 2:48 AM) (11/10/16 4:12 AM) MCH [27.0-31.0 pg] 32.1 pg 32.1 pg *HI* *HI* (11/11/16 2:48 AM) (11/10/16 4:12 AM) MCHC [32.0-36.0 g/dL] 32.9 g/dL 33.2 g/dL (11/11/16 2:48 AM) (11/10/16 4:12 AM) RDW [11.5-14.5 %] 15.4 % 15.4 % *HI* *HI* (11/11/16 2:48 AM) (11/10/16 4:12 AM) Platelet [133-450 K/CMM] 217 K/CMM 192 K/CMM (11/11/16 2:48 AM) (11/10/16 4:12 AM) MPV [7.4-10.4 fL] 8.7 fL 8.6 fL (11/11/16 2:48 AM) (11/10/16 4:12 AM) Segs [45.0-75.0 %] 72.6 % 66.8 % (11/11/16 2:48 AM) (11/10/16 4:12 AM) Lymphocytes [20.0-40.0 %] 14.1 % 19.5 % *LOW* *LOW* (11/11/16 2:48 AM) (11/10/16 4:12 AM) Monocytes [2.0-12.0 %] 10.7 % 9.3 % (11/11/16 2:48 AM) (11/10/16 4:12 AM) Eosinophils [0.0-4.0 %] 1.9 % 3.7 % (11/11/16 2:48 AM) (11/10/16 4:12 AM) Basophils [0.0-1.0 %] 0.7 % 0.7 % (11/11/16 2:48 AM) (11/10/16 4:12 AM) Segs-Bands # [1.5-8.1 K/CMM] 4.7 K/CMM 4.1 K/CMM (11/11/16 2:48 AM) (11/10/16 4:12 AM) Lymphocytes # [1.0-5.5 K/CMM] 0.9 K/CMM 1.2 K/CMM *LOW* (11/10/16 4:12 AM) (11/11/16 2:48 AM) Monocytes # [0.0-0.8 K/CMM] 0.7 K/CMM 0.6 K/CMM (11/11/16 2:48 AM) (11/10/16 4:12 AM) Eosinophils # [0.0-0.5 K/CMM] 0.1 K/CMM 0.2 K/CMM (11/11/16 2:48 AM) (11/10/16 4:12 AM) Immunizations No data available for this section Procedures Procedure Date Related Diagnosis Body Site Bilateral breast implants Bilateral mastectomy Creation of arteriovenous shunt or fistula for dialysis by external cannula Hysterectomy Kidney transplant Nephrectomy Removal of breast implant Vascular surgery procedure1 1LEFT LEG WITH GREAT TOE AMPUTATION; RIGHT LEG WITH GREAT TOE AMPUTATION Social History Social History Type Response Substance Abuse Use: None. IV drug use: No. Drug use interferes with work/ home: No. Ready to change: No. Household substance abuse concerns: No. Cessation Education Provided: No. Alcohol Never, Previous treatment: None. Alcohol use interferes with work or home: No. Drinks more than intended: No. Others hurt by drinking: No. Ready to change: No. Household alcohol concerns: No. Smoking Status Never smoker; Ready to change: No; Concerns about tobacco use in household: No; Exposure to Tobacco Smoke None; Cigarette Smoking Last 365 Days No; Reg Smoking Cessation Counseling No Assessment and Plan No data available for this section
[2018-06-20] MEDS ORDERED: ACETAMINOPHEN 500 MG TAB ONE (06:04)
[2018-06-20] MEDS ORDERED: IBUPROFEN 400 MG TAB ONE (06:04)
--- NOTE | 2018-06-20 07:24 | ER ---
Nurse's Notes [facility] Name: Jens Hightower Age: 63 yrs Sex: Female : 1955 Arrival Date: 06/20/2018 Time: 04:53 Bed 5 Private MD: Nader Roche E Diagnosis: Contusion of left hip Presentation: 06/20 05:06 Presenting complaint: Patient states: Pt reports she went to sit down and missed her ea wheelchair, pt reports she landed on her bottom. Denies hitting head or LOC. Care prior to arrival: None. Mechanism of Injury: Fall out of chair. Trauma event details: Injury occurred in the [facility], Injury occurred: at home. Injury occurred: June 20, 2018 Injury occurred at: 04:50. 05:06 Acuity: BRANDON 3 ea 05:06 Method Of Arrival: Wheelchair ea 05:24 Transition of care: patient was not received from another setting of care. Onset of ea symptoms was June 20, 2018. Risk Assessment: Do you want to hurt yourself or someone else? Patient reports no desire to harm self or others. Initial Sepsis Screen: Does the patient meet any 2 criteria? No. Patient's initial sepsis screen is negative. Does the patient have a suspected source of infection? No. Patient's initial sepsis screen is negative. Triage Assessment: 05:25 General: Appears in no apparent distress. Behavior is calm, cooperative, appropriate ea for age. Pain: Complains of pain in left gluteus isaac and left leg. EENT: No signs and/or symptoms were reported regarding the EENT system. Neuro: Level of Consciousness is awake, alert, obeys commands, Oriented to person, place, time, situation. Cardiovascular: Patient's skin is warm and dry. Cardiovascular: Dialysis shunt: in the right arm. Respiratory: Airway is patent Respiratory effort is even, unlabored, Respiratory pattern is regular, symmetrical. GI: No signs and/or symptoms were reported involving the gastrointestinal system. : No signs and/or symptoms were reported regarding the genitourinary system. Derm: Skin is dry, Skin is normal, Skin temperature is warm. Musculoskeletal: Reports pain in left gluteus isaac and left leg. Historical: - Allergies: 05:23 PENICILLINS; ea - Home Meds: 05:23 vit c 1000 mg AM [Active]; Synthroid 75 mcg Oral tab 1 tab twice a day [Active]; ea Vitamin B-6 100 mg Oral tab daily [Active]; Iron CR Oral daily [Active]; biotin 2,500 mcg oral cap 2 caps daily [Active]; Super B Complex-Vitamin C oral tab daily [Active]; Vitamin D3 5,000 unit oral tab daily [Active]; Daily-Karl oral tab daily [Active]; Fish Oil 360-1,200 mg oral cap [Active]; Nifedipine ER Oral 90 mg twice a day [Active]; losartan 50 mg Oral tab 1 tab 2 times per day [Active]; doxazosin 1 mg oral tab 1 tab twice a day [Active]; Cytomel 5 mcg Oral tab 1 tab twice a day [Active]; isosorbide mononitrate 120 mg Oral Tb24 1 tab once daily [Active]; Coreg 25 mg Oral tab 1 tab 2 times per day [Active]; pravastatin 20 mg Oral tab 1 tab once daily [Active]; hydralazine 100 mg Oral tab 1 tab daily [Active]; esomeprazole magnesium 40 mg Oral cpDR 1 cap once daily [Active]; Renvela 800 mg Oral tab [Active]; novalog [Active]; - PMHx: 05:23 Tibial Shaft Fracture; Thyroid problem; Hypertension; Fibula Shaft Fracture; Dialysis; ea Diabetes - IDDM; chronic renal failure; - PSHx: 05:23 Unable to obtain; ea - Immunization history: Last tetanus immunization: - up to date. - Social history:: Smoking status: Patient/guardian denies using tobacco. - Ebola Screening: : No symptoms or risks identified at this time. Screenin:23 Abuse screen: Denies threats or abuse. Nutritional screening: No deficits noted. ea Tuberculosis screening: No symptoms or risk factors identified. Fall Risk Assessment: 05:27 Reassessment: see triage assessment. ea 06:29 Reassessment: Patient and/or family updated on plan of care and expected duration. Pain ea level reassessed. Patient is alert, oriented x 3, equal unlabored respirations, skin warm/dry/pink. Awaiting on radiology results. 06:50 Reassessment: Patient and/or family updated on plan of care and expected duration. Pain ea level reassessed. Patient is alert, oriented x 3, equal unlabored respirations, skin warm/dry/pink. Pt taken to radiology. 07:00 Reassessment: RECD REPORT FROM JANET CHAMPION. 63YO WF P/W FALL FROM W/C ONTO SACRUM. XRAY bp RESULTS PENDING. 07:24 Reassessment: PROVIDER AT B/S FOR RE-EVAL. NO ACUTE ABNORMALITIES ON XRAY, DISPO bp PENDING. 07:36 Reassessment: PT D/C HOME VIA W/C WITH FAMILY, DX WITH LEFT HIP CONTUSION. bp Vital Signs: 05:09 BP 151 / 60; Pulse 68; Resp 18; Temp 97.4(O); Pulse Ox 100% on R/A; Weight 63.05 kg; ea Height 5 ft. (152.40 cm); Pain 7/10; 06:29 BP 173 / 90; Pulse 69; Resp 18; Pulse Ox 100% on R/A; ea 07:25 BP 131 / 49; Pulse 64; Resp 16; Pulse Ox 100% ; bp 05:09 Body Mass Index 27.15 (63.05 kg, 152.40 cm) ea Ankur Coma Score: 05:09 Eye Response: spontaneous(4). Verbal Response: oriented(5). Motor Response: obeys ea commands(6). Total: 15. Trauma Score (Adult): 05:09 Eye Response: spontaneous(1); Verbal Response: oriented(1); Motor Response: obeys ea commands(2); Systolic BP: > 89 mm Hg(4); Respiratory Rate: 10 to 29 per min(4); [place] Score: 15; Trauma Score: 12 ED Course: 04:53 Patient arrived in ED. am2 04:53 Nader Roche MD is Private Physician. am2 05:06 Janet Parikh, RN is Primary Nurse. ea 05:09 Triage completed. ea 05:10 Patient has correct armband on for positive identification. Bed in low position. Call ea light in reach. with patient. 05:12 Arm band placed on right wrist. Patient placed in an exam room, in a wheelchair, on ea pulse oximetry. 06:06 Amando Mosley PA is PHCP. jr8 06:06 Nader Cartagena MD is Attending Physician. jr8 06:49 Patient moved to radiology via wheelchair. jb2 06:59 Report given to OSCAR CHAMPION and Fareed CHAMPION. ea 07:07 Primary Nurse role handed off by Janet Parikh, JAYCEE bp 07:07 Fareed Franks, RN is Primary Nurse. bp 07:07 Tib Fib Left In Process Unspecified. EDMS 07:07 Hip Left 2 View In Process Unspecified. EDMS 07:07 Pelvis In Process Unspecified. EDMS 07:08 X-ray completed. Patient tolerated procedure well. Patient moved back from radiology. jb2 07:23 Nader Roche MD is Referral Physician. jr8 07:25 No provider procedures requiring assistance completed. Patient did not have IV access bp during this emergency room visit. Administered Medications: 05:57 Drug: Tylenol 1000 mg Route: PO; ea 07:27 Follow up: Response: Pain is decreased bp 05:57 Drug: Motrin 400 mg Route: PO; ea 07:27 Follow up: Response: Pain is decreased bp Outcome: 07:24 Discharge ordered by . jr8 07:37 Discharged to home via wheelchair, with family. bp 07:37 Condition: stable 07:37 Discharge instructions given to patient, Instructed on discharge instructions, follow up and referral plans. Demonstrated understanding of instructions, follow-up care. 07:37 Patient left the ED. bp Addendum: 06/26/2018 10:06 Addendum: Radiology Result: Contacted Patient and her who report that they have s s followed up with Dr. Katz Saturday and have had further testing done. Dr. Katz was able to verify diagnosis of possible ischium fracture and has further made follow up arrangements. Patient and family are grateful for care received. Signatures: Dispatcher [employer] EDME Og Jayce jb2 Michelle Castillo RN RN ss Roszak, Josh, PA PA jr8 Hali Ramos 2 Janet Parikh RN RN ea Peltier, Brian, RN RN bp Corrections: (The following items were deleted from the chart) 06/20 05:13 05:10 Patient has correct armband on for positive identification. Bed in low position. ea Call light in reach. with patient ea
--- NOTE | 2018-06-20 07:25 | EDPHYS ---
Physician Documentation [facility] Name: Jens Hightower Age: 63 yrs Sex: Female : 1955 Arrival Date: 06/20/2018 Time: 04:53 Bed 5 Private MD: Nader Roche E ED Physician Nader Cartagena HPI: 06/20 06:29 This 63 yrs old Female presents to ER via Wheelchair with complaints of Fall jr8 Injury. 06:29 Details of fall: The patient fell from an upright position, while standing. Onset: The jr8 symptoms/episode began/occurred acutely, this morning. Associated injuries: The patient sustained left leg. Severity of symptoms: At their worst the symptoms were moderate, in the emergency department the symptoms are unchanged. The patient has not experienced similar symptoms in the past. The patient has not recently seen a physician. Was transferring to wheel chair and landed on buttock accidently. Pain to hip and calf region. Historical: - Allergies: 05:23 PENICILLINS; ea - Home Meds: 05:23 vit c 1000 mg AM [Active]; Synthroid 75 mcg Oral tab 1 tab twice a day [Active]; ea Vitamin B-6 100 mg Oral tab daily [Active]; Iron CR Oral daily [Active]; biotin 2,500 mcg oral cap 2 caps daily [Active]; Super B Complex-Vitamin C oral tab daily [Active]; Vitamin D3 5,000 unit oral tab daily [Active]; Daily-Karl oral tab daily [Active]; Fish Oil 360-1,200 mg oral cap [Active]; Nifedipine ER Oral 90 mg twice a day [Active]; losartan 50 mg Oral tab 1 tab 2 times per day [Active]; doxazosin 1 mg oral tab 1 tab twice a day [Active]; Cytomel 5 mcg Oral tab 1 tab twice a day [Active]; isosorbide mononitrate 120 mg Oral Tb24 1 tab once daily [Active]; Coreg 25 mg Oral tab 1 tab 2 times per day [Active]; pravastatin 20 mg Oral tab 1 tab once daily [Active]; hydralazine 100 mg Oral tab 1 tab daily [Active]; esomeprazole magnesium 40 mg Oral cpDR 1 cap once daily [Active]; Renvela 800 mg Oral tab [Active]; novalog [Active]; - PMHx: 05:23 Tibial Shaft Fracture; Thyroid problem; Hypertension; Fibula Shaft Fracture; Dialysis; ea Diabetes - IDDM; chronic renal failure; - PSHx: 05:23 Unable to obtain; ea - Immunization history: Last tetanus immunization: - up to date. - Social history:: Smoking status: Patient/guardian denies using tobacco. - Ebola Screening: : No symptoms or risks identified at this time. ROS: 06:29 Eyes: Negative for injury, pain, redness, and discharge, ENT: Negative for injury, jr8 pain, and discharge, Neck: Negative for injury, pain, and swelling, Cardiovascular: Negative for chest pain, palpitations, and edema, Respiratory: Negative for shortness of breath, cough, wheezing, and pleuritic chest pain, Abdomen/GI: Negative for abdominal pain, nausea, vomiting, diarrhea, and constipation, Back: Negative for injury and pain, Skin: Negative for injury, rash, and discoloration, Neuro: Negative for headache, weakness, numbness, tingling, and seizure. 06:29 MS/extremity: Positive for pain, tenderness, of the left hip and tibia. Exam: 06:29 Eyes: Pupils equal round and reactive to light, extra-ocular motions intact. Lids and jr8 lashes normal. Conjunctiva and sclera are non-icteric and not injected. Cornea within normal limits. Periorbital areas with no swelling, redness, or edema. ENT: Nares patent. No nasal discharge, no septal abnormalities noted. Tympanic membranes are normal and external auditory canals are clear. Oropharynx with no redness, swelling, or masses, exudates, or evidence of obstruction, uvula midline. Mucous membranes moist. Neck: Trachea midline, no thyromegaly or masses palpated, and no cervical lymphadenopathy. Supple, full range of motion without nuchal rigidity, or vertebral point tenderness. No Meningismus. Cardiovascular: Regular rate and rhythm with a normal S1 and S2. No gallops, murmurs, or rubs. Normal PMI, no JVD. No pulse deficits. Respiratory: Lungs have equal breath sounds bilaterally, clear to auscultation and percussion. No rales, rhonchi or wheezes noted. No increased work of breathing, no retractions or nasal flaring. Abdomen/GI: Soft, non-tender, with normal bowel sounds. No distension or tympany. No guarding or rebound. No evidence of tenderness throughout. Back: No spinal tenderness. No costovertebral tenderness. Full range of motion. Skin: Warm, dry with normal turgor. Normal color with no rashes, no lesions, and no evidence of cellulitis. Neuro: Awake and alert, GCS 15, oriented to person, place, time, and situation. Cranial nerves II-XII grossly intact. Motor strength 5/5 in all extremities. Sensory grossly intact. Cerebellar exam normal. Normal gait. 06:29 Musculoskeletal/extremity: ROM: intact in all extremities, limited active range of motion due to pain, limited passive range of motion due to pain, Circulation is intact in all extremities. Sensation intact. Tenderness to left hip region. No obvious deformity, laceration, abrasion, or bruising . Vital Signs: 05:09 BP 151 / 60; Pulse 68; Resp 18; Temp 97.4(O); Pulse Ox 100% on R/A; Weight 63.05 kg; ea Height 5 ft. (152.40 cm); Pain 7/10; 06:29 BP 173 / 90; Pulse 69; Resp 18; Pulse Ox 100% on R/A; ea 07:25 BP 131 / 49; Pulse 64; Resp 16; Pulse Ox 100% ; bp 05:09 Body Mass Index 27.15 (63.05 kg, 152.40 cm) ea Ankur Coma Score: 05:09 Eye Response: spontaneous(4). Verbal Response: oriented(5). Motor Response: obeys ea commands(6). Total: 15. Trauma Score (Adult): 05:09 Eye Response: spontaneous(1); Verbal Response: oriented(1); Motor Response: obeys ea commands(2); Systolic BP: > 89 mm Hg(4); Respiratory Rate: 10 to 29 per min(4); [place] Score: 15; Trauma Score: 12 MDM: 05:32 Patient medically screened. pr 07:23 Data reviewed: vital signs, nurses notes, radiologic studies, plain films, and as a jr8 result, I will discharge patient. Data interpreted: Pulse oximetry: on room air is 100 %. Interpretation: normal. Counseling: I had a detailed discussion with the patient and/or guardian regarding: the historical points, exam findings, and any diagnostic results supporting the discharge/admit diagnosis, radiology results, the need for outpatient follow up, a orthopedic surgeon, to return to the emergency department if symptoms worsen or persist or if there are any questions or concerns that arise at home. 06/20 05:37 Order name: Hip Left 2 View XRAY pr 06/20 05:37 Order name: Pelvis XRAY pr 06/20 05:38 Order name: Tib Fib Left EDMS 06/20 05:38 Order name: Hip Left 2 View [facility] 06/20 05:38 Order name: Pelvis EDMS Administered Medications: 05:57 Drug: Tylenol 1000 mg Route: PO; ea 07:27 Follow up: Response: Pain is decreased bp 05:57 Drug: Motrin 400 mg Route: PO; ea 07:27 Follow up: Response: Pain is decreased bp Disposition: 06/21 07:10 Co-signature as Attending Physician, Nader Cartagena MD I agree with the assessment and pr plan of care. Disposition: 06/20/18 07:24 Discharged to Home. Impression: Contusion of left hip. - Condition is Stable. - Discharge Instructions: Contusion, Hip Pain. - Medication Reconciliation Form, Thank You Letter, Antibiotic Education, Prescription Opioid Use form. - Follow up: Nader Roche MD; When: 5 - 6 days; Reason: Recheck today's complaints, Continuance of care, Re-evaluation by your physician. - Problem is new. - Symptoms have improved. Signatures: Dispatcher [employer] [facility] Amando Mosley PA PA jr8 Janet Parikh, RN RN Nader Chowdhury MD MD wa Peltier, Brian, RN RN bp Corrections: (The following items were deleted from the chart) 06/20 06:53 05:37 Tib Fib Left+RAD.RAD.BRZ ordered. [facility] 07:37 07:24 06/20/2018 07:24 Discharged to Home. Impression: Contusion of left hip. Condition bp is Stable. Forms are Medication Reconciliation Form, Thank You Letter, Antibiotic Education, Prescription Opioid Use. Follow up: Nader Roche; When: 5 - 6 days; Reason: Recheck today's complaints, Continuance of care, Re-evaluation by your physician. Problem is new. Symptoms have improved. jr8
--- NOTE | 2018-06-20 08:46 | RAD REPORT ---
EXAM DESCRIPTION: Akila Saldaña Left06/20/2018 7:09 am CLINICAL HISTORY: Left leg pain status post injury FINDINGS: Old fractures involve the proximal left fibula and tibia. The bones are osteoporotic. No acute fracture is visualized
--- NOTE | 2018-06-20 08:46 | RAD REPORT ---
EXAM DESCRIPTION: RAD - Pelvis - 06/20/2018 7:08 am CLINICAL HISTORY: Left hip pain status post fall FINDINGS: A nondisplaced fracture involves the left ischium. This may be subacute and should be miladis elated clinically. Bones are osteoporotic No additional fracture or dislocation seen. If patient has clinical symptoms to suggest an occult fem oral fracture MRI would be recommended
--- NOTE | 2018-06-20 08:46 | RAD REPORT ---
EXAM DESCRIPTION: RAD - Hip Left 2 View - 06/20/2018 7:07 am CLINICAL HISTORY: Left hip pain status post injury FINDINGS: A nondisplaced fracture involves the left ischium. This may be subacute and should be correlated clin ically. Bones are osteoporotic No additional fracture or dislocation seen. If patient has clinical symptoms to suggest an occult fem oral fracture MRI would be recommended
== END 2018-06-20 07:37 | disposition home or self-care (01) ==
LOC: ER 04:52
DX: S70.02XA Contusion of left hip, initial encounter (principal); W19.XXXA Unspecified fall, initial encounter; M81.0 Age-related osteoporosis without current pathological fracture
CPT/HCPCS: 72170; 99283

== ENCOUNTER 2018-06-26 11:50 | Inpatient (IN) | payer OTHER ==
--- OUTSIDE RECORDS SUMMARY | 2018-06-26 11:53 | XMS REPORT | Clinical Summary ---
:1955 Author Organization [facility] Address [address] [place] [address] Care Team Providers Name Role Phone Unavailable Primary Care Provider Unavailable Allergies Active Allergy Reactions Severity Noted Date Comments Penicillins Hives, Rash Low 01/07/2017 Medications Medication Sig Dispensed Refills Start Date End Date Status ascorbic acid, Take 1,000 mg by 0 Active vitamin C, (VITAMIN mouth daily. C) 1000 MG tablet atropine (ISOPTO) 1 1 drop 3 (three) 0 Active % ophthalmic times daily. solution b complex vitamins Take 1 tablet by 0 Active tablet mouth daily. biotin 1 mg Cap Take by mouth. 0 Active carvedilol (COREG) Take 25 mg by mouth 0 Active 25 MG tablet 2 (two) times daily with breakfast and dinner. cholecalciferol, Take 5,000 Units by 0 Active vitamin D3, 5,000 mouth daily. unit Tab clonidine HCl Take by mouth. 0 Active (CATAPRES ORAL) esomeprazole Take 40 mg by mouth 0 Active (NEXIUM) 40 MG daily. capsule hydrALAZINE Take 100 mg by mouth 0 Active (APRESOLINE) 100 MG 2 (two) times daily. tablet isosorbide Take 60 mg by mouth 0 Active mononitrate (IMDUR) daily. 60 MG 24 hr tablet levothyroxine Take 75 mcg by mouth 0 Active (SYNTHROID, Every morning on an LEVOTHROID) 75 MCG empty stomach. tablet liothyronine Take 5 mcg by mouth 0 Active (CYTOMEL) 5 MCG daily. tablet losartan (COZAAR) 50 Take 50 mg by mouth 0 Active MG tablet daily. loteprednol 1 drop 4 (four) 0 Active (LOTEMAX) 0.5 % times daily. ophthalmic suspension megestrol (MEGACE) Take 40 mg by mouth 0 Active 40 MG tablet daily. metoclopramide HCl Take 10 mg by mouth 0 Active (REGLAN) 10 MG 4 (four) times daily tablet as needed for Nausea. moxifloxacin 1 drop 3 (three) 0 Active (VIGAMOX) 0.5 % times daily. ophthalmic solution NIFEdipine (ADALAT Take 90 mg by mouth 0 Active CC) 90 MG 24 hr daily. tablet insulin aspart U-100 Inject 0 Active (NOVOLOG) 100 subcutaneously 3 unit/mL InPn (three) times daily with meals. omega 6-nun-aau-fish Take by mouth. 0 Active oil (FISH OIL) 100-160-1,000 mg Cap pantoprazole Take 40 mg by mouth 0 Active (PROTONIX) 40 MG daily. tablet pravastatin Take 20 mg by mouth 0 Active (PRAVACHOL) 20 MG daily. tablet prednisoLONE acetate 1 drop 4 (four) 0 Active (PRED FORTE) 1 % times daily. ophthalmic suspension prednisoLONE 5 mg Take by mouth. 0 Active Tab sevelamer (RENAGEL) Take 800 mg by mouth 0 Active 800 MG tablet 3 (three) times daily with meals. sirolimus (RAPAMUNE) Take 2 mg by mouth 0 Active 1 MG tablet daily. sodium bicarbonate Take 325 mg by mouth 0 Active 325 MG tablet 4 (four) times daily. timolol (TIMOPTIC) 1 drop 2 (two) times 0 Active 0.5 % ophthalmic daily. solution tobramycin (TOBREX) 3 (three) times 0 Active 0.3 % ophthalmic daily. ointment valGANciclovir Take 450 mg by mouth 0 Active (VALCYTE) 450 mg daily. tablet Active Problems Not on file Social History [...] Treatment Date Type Specialty Care Team Description 07/09/2018 Hospital Encounter Craig Silva MD [address] [address] 07/09/2018 Anesthesia Event Yara Valdez MD [address] [facility] [address] [place] [address] 07/09/2018 Surgery Craig Silva, RECONSTRUCTION,OCULAR AMNIOTIC MEMBRANE [address] [place] [id number] [phone] Health Maintenance Due Date Last Done Comments INFLUENZA VACCINE 03/10/2018 Results Not on fileafter 06/25/2017 Insurance Payer Benefit Plan / Group Subscriber ID Type Phone Address MEDICARE MEDICARE A B xxxxxxxxxx Medicare OTHER-COMMERCIAL GENERIC COMMERCIAL xxxxxxxx
--- OUTSIDE RECORDS SUMMARY | 2018-06-26 11:53 | XMS REPORT | Clinical Summary ---
:1955 Author Organization [facility] Address [address] [place] [address] Care Team Providers Name Role Phone Nader [...] Encounters Date Type Specialty Care Team Description 06/25/2018 Transcribe Orders Radiology Gianna José Left hip pain ( Primary MD Silvestre Dx) 04/22/2018 Lab Lab Craig Silva MD after 06/25/2017 Family History Medical History Relation Name Comments [...] Procedure Name Priority Date/Time Associated Diagnosis Comments MRI LOWER EXTREMITY Routine 06/25/2018 2:00 PM Left hip pain Results for this JOINT WO CONTRAST [employer] procedure are in LEFT the results section. FUNGUS SMEAR Routine 04/22/2018 6:00 PM Results for this [employer] procedure are in the results section. GRAM STAIN Routine 04/22/2018 6:00 PM Results for this [employer] procedure are in the results section. FUNGUS CULTURE Routine 04/22/2018 6:00 PM Results for this [employer] procedure are in the results section. EYE CULTURE, Routine 04/22/2018 6:00 PM Results for this ANAEROBIC [employer] procedure are in the results section. ACRIDINE ORANGE Routine 04/22/2018 6:00 PM Results for this STAIN [employer] procedure are in the results section. EYE CULTURE Routine 04/22/2018 6:00 PM Results for this [employer] procedure are in the results section. after 06/25/2017 Results MRI Lower Extremity Joint Wo Contrast Left (06/25/2018 2:00 PM [employer]) Narrative Performed At EXAMINATION:MRI LOWER EXTREMITY JOINT WO CONTRAST LEFT HM [facility]ANT CLINICAL HISTORY:M25.552 Pain in left hip, Hip painchronicinitial exam COMPARISON:No prior TECHNIQUE: Multiplanar multisequence MRI of the pelvis and special attention to the left hip was performed without contrast. FINDINGS: Nondisplaced incomplete intertrochanteric fracture of the left femur. There is also a nondisplaced fracture of the left inferior ramus that may be acute or subacute and nondisplaced incomplete fracture of the anterior column of the left acetabulum. Fatty marrow replacement, osteopenia. Correlate with recent injury or fall. Degenerative changes of the symphysis pubis. The right hip and hemipelvis are intact. Intramuscular edema in the medial adductor muscles and left proximal thigh musculature compatible. No discrete hematoma is stable fluid collections. Mild joint space narrowing in both hips. No significant osteophyte formation. Heterogeneous low marrow signal within the spine, pelvis and proximal femurs nonspecific and can be seen with red marrow. No suspicious lesions. No pathologic fractures. Gluteal and hamstring tendons intact. A few prominent inguinal lymph nodes are noted nonspecific. IMPRESSION: 1.Acute/subacute nondisplaced incomplete intertrochanteric fracture of the left hip, nondisplaced incomplete fracture of the left anterior column of the acetabulum and minimal displaced fracture of the left inferior ramus. Correlate with recent fall or injury. Procedure Note Hm Interface, Radiology Results Incoming - 06/25/2018 2:19 PM [employer] EXAMINATION: MRI LOWER EXTREMITY JOINT WO CONTRAST LEFT CLINICAL HISTORY: M25.552 Pain in left hip, Hip pain chronic initial exam COMPARISON: No prior TECHNIQUE: Multiplanar multisequence MRI of the pelvis and special attention to the left hip was performed without contrast. FINDINGS: Nondisplaced incomplete intertrochanteric fracture of the left femur. There is also a nondisplaced fracture of the left inferior ramus that may be acute or subacute and nondisplaced incomplete fracture of the anterior column of the left acetabulum. Fatty marrow replacement, osteopenia. Correlate with recent injury or fall. Degenerative changes of the symphysis pubis. The right hip and hemipelvis are intact. Intramuscular edema in the medial adductor muscles and left proximal thigh musculature compatible. No discrete hematoma is stable fluid collections. Mild joint space narrowing in both hips. No significant osteophyte formation. Heterogeneous low marrow signal within the spine, pelvis and proximal femurs nonspecific and can be seen with red marrow. No suspicious lesions. No pathologic fractures. Gluteal and hamstring tendons intact. A few prominent inguinal lymph nodes are noted nonspecific. IMPRESSION: 1. Acute/subacute nondisplaced incomplete intertrochanteric fracture of the left hip, nondisplaced incomplete fracture of the left anterior column of the acetabulum and minimal displaced fracture of the left inferior ramus. Correlate with recent fall or injury. Performing Organization Address [facility] Phone Number [address] [id number] Fungus smear (04/22/2018 6:00 PM [employer]) Fungus smear No fungi observed. [facility] Comment: Specimen Information Specimen Source: Corneal scraping Specimen Site: Right Eye Specimen Corneal scraping Performing Organization Address [facility]/Zipcode Phone Number [facility] DEPARTMENT OF PATHOLOGY AND [address] [place] [phone] [address] Eye culture, anaerobic (04/22/2018 6:00 PM [employer]) Eye culture isolate, Thioglycollate: [facility] [place] anaerobic No anaerobes isolated after 7 days. HOSPITAL Comment: Specimen Information Specimen Source: Corneal scraping Specimen Site: Right Eye Specimen Corneal scraping Performing Organization Address [facility]ode Phone Number [facility] DEPARTMENT OF PATHOLOGY AND [address] [place] [phone] [place] [address] Acridine orange stain (04/22/2018 6:00 PM [employer]) Acridine orange stain Many cocciin clusters [facility] Comment: Specimen Information Specimen Source: Corneal scraping Specimen Site: Right Eye Specimen Corneal scraping Performing Organization Address City/State/Zipcode Phone Number [facility] DEPARTMENT OF PATHOLOGY AND [address] [place] [phone] [facility] MEDIC[facility] [address] [address] Eye culture (04/22/2018 6:00 PM [employer]) Eye culture isolate Blood and Chocolate agars and Thioglycollate broth: (A) [facility] [place] Comment: HOSPITAL Specimen Information Specimen Source: Corneal scraping Specimen Site: Right Eye Eye culture isolate Streptococcus mitis group [facility] [place] [facility] H[facility]PITAL Growth first detected onBlood/Chocolate/Thioglycollateon day 1 identification/susceptibility to follow Interpretations of the STEPHANIE values are based on serum and urine levels.Interpret results accordingly. \ Interpretations of the STEPHANIE values are based on serum and urine levels.Interpret results accordingly. (A) Eye culture isolate Staphylococcus, coagulase negative [facility] [place] [facility]PITAL Growth first detected on Chocolate/Thioglycollateon day 2 susceptibility to follow Interpretations of the STEPHANIE values are based on serum and urine levels.Interpret results accordingly. (A) Eye culture isolate Corynebacterium amycolatum [facility] [place] [facility]PITAL Growth first detected onBlood/Chocolate agaron [...] Vancomycin BP 0.5 mcg/mL Performing Organization Address [facility] Phone Number [facility] DEPARTMENT OF PATHOLOGY AND [address] [place] [phone] Gram stain (04/22/2018 6:00 PM [employer]) Gram stain isolate See Acridine [place] report for result [facility] Comment: Specimen Information Specimen Source: Corneal scraping Specimen Site: Right Eye Specimen Corneal scraping Performing Organization Address City/[facility] Phone Number [facility] DEPARTMENT OF PATHOLOGY AND [address] [place] [phone] [place] [phone] Fungus culture (04/22/2018 6:00 PM [employer]) Fungus culture isolate No growth after 4 weeks of incubation[address] [facility] [place] [place] Comment: HOSPITAL Specimen Information Specimen Source: Corneal scraping Specimen Site: Right Eye Specimen Corneal scraping Performing Organization Address [facility] Phone Number [facility] DEPARTMENT OF PATHOLOGY AND [address] [place] [address], [place] [address] GENOMIC MEDICINE [facility] [address] [place] [phone] after 06/25/2017 Insurance Payer Benefit Plan / Group Subscriber ID Type Phone Address MEDICARE MEDICARE PART A AND B xxxxxxxxxx Medicare [facility] MED SUPPLEMENT xxxxxxxx Commercial
--- OUTSIDE RECORDS SUMMARY | 2018-06-26 11:54 | XMS REPORT | Continuity of Care Document ---
:1955 Author Organization Interface Problems Problem Status Onset Classification Date Comments Source Date Reported POSTTRAMATIC Active 11/11/19 [facility] HEMATOMA OF LEFT [address] [place] [address] BREST BREAST IMPLANT Active 11/11/19 [facility] HEMATOMA [address] [place] [id number], Active 09/14/19 [facility] [id number] [place] [address] HISTORYOF BREAST AUGME Absence of Resolved Problem 11/14/2016 [facility] breast, acquired [facility] Diabetes Active Problem 11/14/2016 [facility] Thyroid disease Active Problem 11/14/2016 [facility] End stage renal Active Problem 11/14/2016 [facility] disease on [facility] dialysis due to type 1 diabetes mellitus Hypertension Active Problem 11/14/2016 [facility] Breast cancer Resolved Problem 11/14/2016 [facility] CONTUSION OF Active [facility] LEFT BREAST, [facility] INITIAL ENCOUN ILLNESS, Active [facility] UNSPECIFIED [facility] Medications Medication Details Route Status Patient Ordering Order Source Instructions Provider Date bifidobacterium-l 1 tab, CHEW, Active actobacillus oral Daily, # 30 tab, 2016 [facility] tablet, chewable 0 Refill(s) [facility] clindamycin 150 150 mg=1 cap, Active mg oral capsule PO, Q6H, X 14 2016, # 56 cap, 0 [facility] Refill(s) Pravastatin 20 mg, 1 tab, No Longer Route: PO, Drug Active 2016 [facility] form: TAB, [facility] Bedtime, Dosing Weight 58.818, kg, Start date: 11/10/16 21:00:00 CDT, Duration: 30 day, Stop date: 12/09/16 21:00:00 CDTNotes: (Same as: Pravachol) Isosorbide 120 mg, 2 tab, No Longer Route: PO, Drug Active 2016 [facility] form: ERTAB, [facility] QPM, Dosing Weight 58.818, kg, Start date: 11/10/16 21:00:00 CDT, Duration: 30 day, Stop date: 12/09/16 21:00:00 CDTNotes: (Same as:Imdur) Do not crush Cleocin HCl + 600 mg, 4 mL, No Longer sodium chloride Route: IVPB, Active 2016 [facility] 0.9% INJ 50 mL [id number], Dosing [facility] Weight 58.818, kg, Start date: 11/10/16 20:00:00 CDT, Duration: 30 day, Stop date: 12/10/16 12:00:00 CDT, ABX Indication: Surgical ProphylaxisNotes : (clindamycin 150 mg/1 ml (600 mg/4 ml VL) INJ) (Same As: Cleocin) Protonix 40 mg, 1 tab, No Longer Route: PO, Drug Active 2016 [facility] form: ECTAB, [facility] Before Dinner, Start date: 11/10/16 16:30:00 CDT, Duration: 30 day, Stop date: 12/09/16 16:30:00 CDTNotes: Tablet should not be chewed or crushed. (Same as: Protonix) Morphine 4 mg, 1 mL, No Longer Route: IM, Drug Active 2016 [facility] form: INJ, Q4H, [facility] Dosing Weight 58.818, kg, PRN Pain Score 7-10, Start date: 11/10/16 16:04:00 CDT, Duration: 30 day, Stop date: 12/10/16 16:03:00 CDTNotes: (Same as:MORPhine Sulfate) Acetaminophen 325 1 tab, Route: No Longer MG / Hydrocodone PO, Drug Form: Active 2016 [facility] Bitartrate 7.5 MG TAB, Dosing [facility] Oral Tablet Weight 58.818, kg, Q4H, PRN Pain Score 4-6, Start date: 11/10/16 16:03:00 CDT, Duration: 30 day, Stop date: 12/10/16 16:02:00 CDTNotes: Same as [place] 325-7.5mg Do not exceed 4gm/day of acetaminophen. ondansetron Route: IV, Drug Inactive (ANES) form: INJ, ONCE, 2016 [facility] Stop date: [facility] 11/10/16 12:56:00 CDT acetaminophen Route: IV, Drug Inactive (ANES) form: INJ, ONCE, 2016 [facility] Stop date: [facility] 11/10/16 12:26:00 CDT famotidine (ANES) Route: IV, Drug Inactive form: INJ, ONCE, 2016 [facility] Stop date: [facility] 11/10/16 12:26:00 CDT Cleocin Phosphate Route: IV, Drug Inactive (ANES) + sodium form: INJ, ONCE, 2016 [facility] chloride 0.9% 100 Stop date: [facility] ml INJ (ANES) 11/10/16 12:21:00 CDT ePHEDrine (ANES) Route: IV, Drug Inactive form: INJ, ONCE, 2016 [facility] Stop date: [facility] 11/10/16 12:21:00 CDT fentaNYL (ANES) Route: IV, Drug Inactive form: INJ, ONCE, 2016 [facility] Stop date: [facility] 11/10/16 12:21:00 CDT propofol (ANES) Route: IV, Drug Inactive form: INJ, ONCE, 2016 [facility] Stop date: [facility] 11/10/16 12:21:00 CDT midazolam (ANES) Route: IV, Drug Inactive form: SOLN, 2016 [facility] ONCE, Stop date: [facility] 11/10/16 12:21:00 CDT succinylcholine Route: IV, Drug Inactive 11/10/ (ANES) form: INJ, ONCE, 2016 [facility] Stop date: [facility] 11/10/16 12:11:00 CDT Diphenhydramine 12.5 mg, 0.25 Inactive mL, Route: IVP, 2016 [facility] Drug form: INJ, City Q6H, Dosing Weight 58.818, kg, PRN Itching, Start date: 11/10/16 12:11:00 CDT, Duration: 30 day, Stop date: 12/10/16 12:10:00 CDTNotes: (Same as: Benadryl) Naloxone 0.4 mg, 1 mL, Inactive 11/10/ Route: IVP, Drug 2016 [facility] form: INJ, City Q2MIN, Dosing Weight 58.818, kg, PRN Narcotic Reversal, Start date: 11/10/16 12:11:00 CDT, Duration: 8 doses or times, Stop date: Limited # of timesNotes: Same as Narcan Flumazenil 0.2 mg, 2 mL, Inactive Route: IVP, Drug 2016 [facility] form: INJ, PRN, City Dosing Weight 58.818, kg, PRN Benzodiazepine Reversal, Initial dose, Start date: 11/10/16 12:11:00 CDT, Duration: 30 day, Stop date: 12/10/16 12:10:00 CDTNotes: (Same as: Romazicon) Morphine 4 mg, 1 mL, Inactive Route: IVP, Drug 2016 [facility] form: INJ, [place] Q5Min, Dosing Weight 58.818, kg, PRN Pain Score 7-10, Start date: 11/10/16 12:11:00 CDT, Duration: 3 doses or times, Stop date: Limited # of timesNotes: (Same as:MORPhine Sulfate) Hydromorphone 0.5 mg, 0.25 mL, Inactive Route: IVP, Drug 2016 [facility] form: INJ, City Q5Min, Dosing Weight 58.818, kg, PRN Pain Score 7-10, Start date: 11/10/16 12:11:00 CDT, Duration: 4 doses or times, Stop date: Limited # of timesNotes: Same as Dilaudid Meperidine 12.5 mg, 0.25 Inactive mL, Route: IVP, 2016 [facility] Drug form: INJ, City Q30Min, Dosing Weight 58.818, kg, PRN Other -See Comment, For shivering, Start date: 11/10/16 12:11:00 CDT, Duration: 2 doses or times, Stop date: Limited # of timesNotes: (Same as: Demerol) "Use Precaution in Elderly, Seizure disorders, and Renal impairment" Ondansetron 4 mg, 2 mL, Inactive Route: IVP, Drug 2016 [facility] form: INJ, ONCE, City Dosing Weight 58.818, kg, PRN Nausea & Vomiting, Start date: 11/10/16 12:11:00 CDTNotes: (Same as: Zofran) MEDICATION WASTE Product Size: 4 mg Product Wasted: ___ mg Promethazine 6.25 mg, 0.25 Inactive mL, Route: IVPB, 2016 [facility] ONCE, Dosing [facility] Weight 58.818, kg, PRN Nausea & Vomiting, Start date: 11/10/16 12:11:00 CDTNotes: Do not give IV push. (Same as: Phenergan) sodium chloride Route: IV, Total Inactive 0.9% 1000 ml INJ Volume: 1,000, 2016 [facility] (ANES) Start date: [facility] 11/10/16 11:17:00 CDT, Stop date: 11/10/16 12:17:00 CDT Docusate 100 mg, 1 cap, No Longer Route: PO, Drug Active 2016 [facility] form: CAP, BID, [facility] Dosing Weight 58.818, kg, Start date: 11/10/16 9:00:00 CDT, Duration: 30 day, Stop date: 12/09/16 17:00:00 CDTNotes: (Same as: Colace) (Do Not Crush) Hydralazine 100 mg, 2 tab, No Longer Hydrochloride 100 Route: PO, Drug Active 2016 [facility] MG Oral Tablet form: TAB, BID, [facility] Dosing Weight 58.818, kg, Start date: 11/10/16 9:00:00 CDT, Duration: 30 day, Stop date: 12/09/16 21:00:00 CDTNotes: (Same as: Apresoline) May interfere w/enteral feedings Take With Food Esomeprazole 40 mg, Route: Inactive PO, Drug form: 2016 [facility] ECCAP, Daily, [facility] Dosing Weight 58.818, kg, Start date: 11/10/16 9:00:00 CDT, Duration: 30 day, Stop date: 12/09/16 9:00:00 CDT Coreg 25 mg, 1 tab, No Longer Route: PO, Drug Active 2016 [facility] form: TAB, BID, [facility] Dosing Weight 58.818, kg, Start date: 11/10/16 9:00:00 CDT, Duration: 30 day, Stop date: 12/09/16 17:00:00 CDTNotes: Give with food. (Same As: Coreg) Renvela 800 mg, 1 tab, No Longer Route: PO, Drug Active 2016 [facility] form: TAB, [facility] TID-Meals, Dosing Weight 58.818, kg, Start date: 11/10/16 8:00:00 CDT, Duration: 30 day, Stop date: 12/09/16 17:00:00 CDTNotes: Same as: Renvela Synthroid 75 microgram, 1 No Longer tab, Route: PO, [address] Drug form: TAB, [facility] Q630AM, Dosing Weight 58.818, kg, Start date: 11/10/16 6:30:00 CDT, Duration: 30 day, Stop date: 12/09/16 6:30:00 CDTNotes: Take 1 hour before or 2 hours after meal; Enteral feeds may interefere with the absorption of this medication. (Same as:Synthroid, Levothroid) Cytomel 50 microgram, 2 No Longer tab, Route: PO, [facility] 2016 [facility] Drug form: [facility], [facility] Q630AM, Dosing Weight 58.818, kg, Start date: 11/10/16 6:30:00 CDT, Duration: 30 day, Stop date: 12/09/16 6:30:00 CDTNotes: (Same as: Cytomel) Glucagon 1 mg, Route: IM, No Longer Drug form: [address] PDR/INJ, PRN, [facility] Dosing Weight 58.818, kg, PRN Blood Glucose Results, Start date: 11/10/16 3:25:00 CDT, Duration: 30 day, Stop date: 12/10/16 3:24:00 CDT Dextrose 50% 25 gm, 50 mL, No Longer Syringe Route: IVP, Drug [address] Form: INJ, [facility] Dosing Weight 58.818, kg, PRN, PRN Blood Glucose Results, Start date: 11/10/16 3:25:00 CDT, Duration: 30 day, Stop date: 12/10/16 3:24:00 CDT Insulin, Aspart, 10 unit, 0.1 mL, No Longer Human Route: SUB-Q, [address] Drug form: SOLN, [facility] Sliding Scale, Dosing Weight 58.818, kg, PRN [...] 0.9% IV IV, Start date: Active 2016 [facility] 11/10/16 3:07:00 [facility] CDT, Duration: 30 day, Stop date: 12/10/16 3:06:00 CDT, PRN Line Flush BD Normal Saline 10 mL, Route: No Longer Flush IVP, Drug Form: Active 2016 [facility] INJ, PRN, PRN [facility] Line Flush, Start date: 11/10/16 3:07:00 CDT, Duration: 30 day, Stop date: 12/10/16 3:06:00 CDTNotes: (Same as: BD Posiflush) Acetaminophen 325 1 tab, Route: Inactive MG / Hydrocodone PO, Drug Form: 2016 [facility] Bitartrate 5 MG TAB, Dosing [facility] Oral Tablet Weight 58.818, kg, Q4H, PRN Pain Score 4-6, Start date: 11/10/16 2:57:00 CDT, Duration: 30 day, Stop date: 12/10/16 2:56:00 CDTNotes: (Same as: [place] 325/5) Do not exceed 4gm/day of acetaminophen. Morphine 2 mg, 1 mL, No Longer Route: IVP, Drug Active 2016 [facility] form: INJ, Q4H, [facility] Dosing Weight 58.818, kg, PRN Pain Score 7-10, Start date: 11/10/16 2:57:00 CDT, Duration: 30 day, Stop date: 12/10/16 2:56:00 CDTNotes: (Same as:MORPhine Sulfate) Acetaminophen 650 mg, 2 tab, No Longer Route: PO, Drug Active 2016 [facility] form: TAB, Q4H, [facility] Dosing Weight 58.818, kg, PRN Pain 1-3/Temp > 100.4 F, Start date: 11/10/16 2:57:00 CDT, Duration: 30 day, Stop date: 12/10/16 2:56:00 CDTNotes: Do not exceed 4 gm/day. (Same as: Tylenol) Ondansetron 4 mg, Route: No Longer IVP, Drug form: Active 2016 [facility] INJ, Q6H, Dosing [place] Weight 58.818, kg, PRN Nausea & Vomiting, Start date: 11/10/16 2:57:00 CDT, Duration: 30 day, Stop date: 12/10/16 2:56:00 CDTNotes: (Same as: Zofran) MEDICATION WASTE Product Size: 4 mg Product Wasted: ___ mg ondansetron Route: IV, Drug Inactive 10/09/ MH (ANES) form: INJ, ONCE, 2016 [facility] Stop date: [facility] 16:09:00 CDT fentaNYL (ANES) Route: IV, Drug Inactive 10/09/ MH form: INJ, ONCE, 2016 [facility] Stop date: [facility] 16:09:00 CDT EPINEPHrine Route: IV, Drug Inactive 10/09/ MH (ANES) form: INJ, ONCE, 2016 [facility] Stop date: [facility] 10/09/16 14:53:00 CDT midazolam (ANES) Route: IV, Drug Inactive 10/09/ MH form: BRENDANN, 2016 [facility] , Stop date: [facility] 10/09/16 14:43:00 CDT lidocaine (ANES) Route: IV, Drug Inactive 10/09/ MH form: INJ, ONCE, 2016 [facility] Stop date: [facility] 10/09/16 14:43:00 CDT Cleocin Phosphate Route: IV, Drug Inactive 10/09/ MH (ANES) form: INJ, ONCE, 2016 [facility] Stop date: [facility] 10/09/16 14:32:00 CDT dexamethasone Route: IV, Drug Inactive 10/09/ MH (ANES) form: INJ, ONCE, 2016 [facility] Stop date: [facility] 10/09/16 14:27:00 CDT propofol (ANES) Route: IV, Drug Inactive 10/09/ MH form: INJ, ONCE, 2016 [facility] Stop date: [facility] 10/09/16 14:27:00 CDT ePHEDrine (ANES) Route: IV, Drug Inactive 10/09[facility] form: INJ, ONCE, 2016 [facility] Stop date: [facility] 10/09/16 14:27:00 CDT fentaNYL (ANES) Route: IV, Drug Inactive 10/09[facility] form: INJ, ONCE, 2016 [facility] Stop date: [facility] 10/09/16 14:27:00 CDT sodium chloride Route: IV, Total Inactive 10/09[facility] 0.9% 1000 ml INJ Volume: 1,000, 2016 [facility] (ANES) Start date: [facility] 10/09/16 13:22:00 CDT, Stop date: 10/09/16 14:22:00 CDT Exparel 266 mg, Route: Inactive 10/09[facility] InFILtration(loc [address] [place] [address] al), Drug Form: [facility] INJ, Dosing Weight 55.483, kg, ONCE, Start [...] 1 mg, Route: Inactive IVP, Q5Min, 2016 [facility] Dosing Weight [facility] 55.483, kg, PRN Anxiety, Start date: 10/09/16 12:41:00 CDT, Duration: 2 doses or times, Stop date: Limited # of times Promethazine 6.25 mg, Route: Inactive IVPB, ONCE, 2016 [facility] Dosing Weight [facility] 55.483, kg, PRN Nausea & Vomiting, Start date: 10/09/16 12:41:00 CDT Dexamethasone 4 mg, Route: Inactive 10/09[facility] IVP, ONCE, 2016 [facility] Dosing Weight [facility] 55.483, kg, PRN Nausea & Vomiting, Start date: 10/09/16 12:41:00 CDT Lorazepam 0.5 mg, Route: Inactive IVP, Q20Min, 2017 [facility] Dosing Weight [facility] 55.483, kg, PRN Anxiety, Start date: 10/09/16 12:41:00 CDT, Duration: 3 doses or times, Stop date: Limited # of times 72 HR Scopolamine 1 patch, Route: Inactive 0.0139 MG/HR TOP, Drug Form: 2017 [facility] Transdermal Patch ERFILM, Dosing [place] Weight 55.483, kg, ONCE, Apply behind ear. Avoid use in elderly., Start date: 10/09/16 12:41:00 CDT, Stop date: 10/09/16 12:41:00 CDTNotes: Change patch every 72 hours (Same as: Transderm-Scop) Ondansetron 4 mg, Route: Inactive IVP, ONCE, 2016 [facility] Dosing Weight [facility] 55.483, kg, PRN Nausea & Vomiting, Start date: 10/09/16 12:41:00 CDT Meperidine 12.5 mg, Route: Inactive IVP, Q30Min, 2017 [facility] Dosing Weight [facility] 55.483, kg, PRN Other -See Comment, For shivering, Start date: 10/09/16 12:41:00 CDT, Duration: 2 doses or times, Stop date: Limited # of times Albuterol 0.83 2.49 mg, Route: Inactive MG/ML Inhalant NEB, PRN, Dosing 2017 [facility] Solution Weight 55.483, City kg, PRN Respiratory Protocol, Start date: 10/09/16 12:41:00 CDT, Duration: 30 day, Stop date: 11/08/16 12:40:00 CDT 200 ACTUAT 2 puff, Route: Inactive Albuterol 0.09 INHALER, Drug 2017 [facility] MG/ACTUAT Metered Form: AERO/A, [facility] Dose Inhaler Dosing Weight 55.483, kg, ONCE, Start date: 10/09/16 12:41:00 CDT, Stop date: 10/09/16 12:41:00 CDT, On arrival to PACUNotes: Albuterol 90 microgram/inh 8gm HFA WASTE: Aerosol - Return to Pharmacy Same as: Ventolin, Proventil Morphine 2 mg, Route: Inactive IVP, Q5Min, 2016 [facility] Dosing Weight [facility] 55.483, kg, PRN Pain Score 4-6, Start date: 10/09/16 12:41:00 CDT, Duration: 5 doses or times, Stop date: Limited # of times Diphenhydramine 12.5 mg, Route: Inactive IVP, Drug form: [address] [place] [address] INJ, Q6H, Dosing [facility] Weight 55.483, kg, PRN Itching, Start date: 10/09/16 12:41:00 CDT, Duration: 30 day, Stop date: 11/08/16 12:40:00 CDT Racepinephrine 0.5 mL, Route: Inactive NEB, Dosing 2016 [facility] Weight 55.483, City kg, PRN, PRN Shortness of breath, Start date: 10/09/16 12:41:00 CDT, Duration: 30 day, Stop date: 11/08/16 12:40:00 CDT Flumazenil 0.2 mg, Route: Inactive IVP, PRN, Dosing 2016 [facility] Weight 55.483, City kg, PRN Benzodiazepine Reversal, Initial dose, Start date: 10/09/16 12:41:00 CDT, Duration: 30 day, Stop date: 11/08/16 12:40:00 CDT Ephedrine 5 mg, Route: Inactive 10/09[facility] IVP, Q5Min, 2016 [facility] Dosing Weight [facility] 55.483, kg, PRN Low Blood Pressure, Start date: 10/09/16 12:41:00 CDT, Duration: 30 day, Stop date: 11/08/16 12:40:00 CDT Naloxone 0.4 mg, Route: Inactive 10/09[facility] IVP, Q2MIN, 2016 [facility] Dosing Weight [facility] 55.483, kg, PRN Narcotic Reversal, Start date: 10/09/16 12:41:00 CDT, Duration: 8 doses or times, Stop date: Limited # of times Ketorolac 15 mg, 0.5 mL, Inactive Route: IVP, Drug 2016 [facility] form: INJ, ONCE, [facility] Dosing Weight 55.483, kg, Start date: 10/09/16 12:41:00 CDT, Duration: 1 doses or times, Stop date: 10/09/16 12:41:00 CDTNotes: (Same as:Toradol) IV bolus must be given >15 seconds. Give IM administration slowly and deeply into the muscle. Not for use > 4 days MEDICATION WASTE Product Size: 30 mg Product Wasted: 15 mg Acetaminophen 1,000 mg, Route: Inactive PO, Drug form: 2016 [facility] TAB, ONCE, [facility] Dosing Weight 55.483, kg, PRN Pain Score 1-3, Start date: 10/09/16 12:41:00 CDT, Duration: 1 doses or times, Stop date: Limited # of times esmolol 10 mg, Route: Inactive 10/09[facility] IVP, Q5Min, 2016 [facility] Dosing Weight [facility] 55.483, kg, PRN Other -See Comment, Start date: 10/09/16 12:41:00 CDT, Duration: 5 doses or times, Stop date: Limited # of times ANES Enalaprilat 0.625 mg, Route: Inactive IVP, Q5Min, 2016 [facility] Dosing Weight [facility] 55.483, kg, PRN Elevated BP, Start date: 10/09/16 12:41:00 CDT, Duration: 4 doses or times, Stop date: Limited # of times Labetalol 10 mg, Route: Inactive IVP, Q5Min, 2016 [facility] Dosing Weight [facility] 55.483, kg, PRN Elevated BP, Start date: 10/09/16 12:41:00 CDT, Duration: 5 doses or times, Stop date: Limited # of times Metoprolol 1 mg, Route: Inactive 10/09[facility] IVP, Q5Min, 2016 [facility] Dosing Weight [facility] 55.483, kg, PRN Other -See Comment, Start date: 10/09/16 12:41:00 CDT, Duration: 5 doses or times, Stop date: Limited # of times Hydralazine 10 mg, Route: Inactive 10/09[facility] IVP, Q20Min, 2016 [facility] Dosing Weight [facility] 55.483, kg, PRN Elevated BP, Start date: 10/09/16 12:41:00 CDT, Duration: 2 doses or times, Stop date: Limited # of times Hydromorphone 0.5 mg, Route: Inactive IVP, Q5Min, 2016 [facility] Dosing Weight [facility] 55.483, kg, PRN Pain Score 7-10, Start date: 10/09/16 12:41:00 CDT, Duration: 4 doses or times, Stop date: Limited # of times Clindamycin 900 mg, 6 mL, Inactive Route: IVPB, 2016 [facility] ONCE, Dosing [facility] Weight 55.483, kg, Start date: 10/09/16 12:32:00 CDT, Stop date: 10/09/16 12:32:00 CDTNotes: (Same As: Cleocin) Sodium Chloride 500 mL, Route: Inactive 0.154 MEQ/ML IV, ONCE, Dosing 2016 [facility] Injectable Weight 55.483 [facility] Solution kg, Start date: 10/09/16 12:21:00 CDT, Stop date: 10/09/16 12:21:00 CDT, Bolus NovoLog See Active Instructions, 0 2016 [facility] Refill(s) [facility] sevelamer 800 mg=1 tab, Active carbonate 800 MG PO, TID-Meals, # 2017 [facility] Oral Tablet 90 tab, 0 [facility] [Renvela] Refill(s) Esomeprazole 40 40 mg=1 cap, PO, Active MG Enteric Coated Daily, # 30 cap, 2016 [facility] Capsule 0 Refill(s) [facility] Levothyroxine 75 microgram=1 Active Sodium 0.075 MG tab, PO, Daily, 2016 [facility] Oral Tablet # 30 tab, 1 [facility] [Synthroid] Refill(s) Hydralazine 100 mg=1 tab, Active Hydrochloride 100 PO, BID, # 60 2016 [facility] MG Oral Tablet tab, 0 Refill(s) [facility] pravastatin 20 mg 20 mg=1 tab, PO, Active oral tablet Bedtime, # 30 2016 [facility] tab, 0 Refill(s) [facility] carvedilol 25 MG 25 mg=1 tab, PO, Active Oral Tablet BID, # 60 tab, 0 2016 [facility] [Coreg] Refill(s) [facility] isosorbide 120 mg=2 tab, Active mononitrate 60 mg PO, QPM, 0 2016 [facility] oral tablet, Refill(s) [facility] extended release liothyronine 50 microgram=1 Active sodium 0.05 MG tab, PO, Daily, 2016 [facility] Oral Tablet # 30 tab, 0 [facility] [Cytomel] Refill(s) losartan 50 mg 50 mg=1 tab, PO, Active 09/26[facility] oral tablet BID, 0 Refill(s) 2016 [facility] 24 HR Nifedipine 90 mg=1 tab, PO, Active 90 MG Extended BID, # 90 tab, 1 2016 [facility] Release Tablet Refill(s) [facility] Allergies, Adverse Reactions, Alerts Substance Category Reaction Severity Reaction Status Date Comments Source type Reported penicillins Assertion Drug Active allergy [facility] Immunizations Immunization Date Given Site Status [...] is not recommended in the following populations: [address] Individuals with unstable creatinine concentrations, including [...] mg/dL 0.50 - 11/11 Lvl 1.40 /2016 [facility] CHEM PANEL CO2 24 meq/L 24 - 32 11/11 [facility] CHEM PANEL Potassium 5.3 meq/L 3.5 - 5.1 11/11 Lvl [facility] CHEM PANEL Chloride Lvl 100 meq/L 95 - 109 11/11 [facility] CHEM PANEL Sodium Lvl 139 meq/L 135 - 145 11/11 [facility] CHEM PANEL BUN 38 mg/dL 7 - 11/11 /2016 [facility] CHEM PANEL Calcium Lvl 8.6 mg/dL 8.5 - 10.5 06/ [facility] CHEM PANEL Glucose Lvl 148 mg/dL 70 - 99 06 [facility] CHEM PANEL AGAP 20.3 meq/L 10.0 - 11/11 MH 20.0 [facility] HEMATOLOGY RDW 15.4 % 11.5 - 11/11 MH 14.5 [facility] HEMATOLOGY MPV 8.7 fL 7.4 - 10.4 06 /2016 [facility] HEMATOLOGY Platelet 217 K/CMM 133 - 450 06 /2016 [facility] HEMATOLOGY Hct 27.0 % 36.0 - 11/11 MH 48.0 /2016 [facility] HEMATOLOGY MCH 32.1 pg 27.0 - 11/11 MH 31.0 [facility] HEMATOLOGY MCV 97.5 fL 80.0 - 11/11 MH 98.0 /2016 [facility] HEMATOLOGY MCHC 32.9 g/dL 32.0 - 11/11 MH 36.0 [facility] HEMATOLOGY WBC 6.4 K/CMM 3.7 - 10.4 11/11 [facility] HEMATOLOGY RBC 2.76 M/CMM 4.20 - 11/11 MH 5.40 /2016 [facility] HEMATOLOGY Hgb 8.9 g/dL 12.0 - 11/11 MH 16.0 [facility] HEMATOLOGY Eosinophils 0.1 K/CMM 0.0 - 0.5 06/ MH # /2017 [facility] HEMATOLOGY Lymphocytes 0.9 K/CMM 1.0 - 5.5 06/ MH # /2016 [facility] HEMATOLOGY Monocytes # 0.7 K/CMM 0.0 - 0.8 06/ [facility] HEMATOLOGY Lymphocytes 14.1 % 20.0 - 06 MH 40.0 [facility] HEMATOLOGY Eosinophils 1.9 % 0.0 - 4.0 06/ [facility] HEMATOLOGY Monocytes 10.7 % 2.0 - 12.0 / [facility] HEMATOLOGY Segs-Bands # 4.7 K/CMM 1.5 - 8.1 / [facility] HEMATOLOGY Basophils 0.7 % 0.0 - 1.0 06/ [facility] HEMATOLOGY Segs 72.6 % 45.0 - 11/11 MH 75.0 /2016 [facility] Chest 1view Chest 1view EXAMINATION: Chest, 1 view 11/10 - DX DX /2016 - [facility] HISTORY: Shortness of breath Read by: Peña Childress MD Dictated Date/time: 11/10/16 11:03 Electronically [...] Phosphorus 3.9 mg/dL 2.5 - 4.5 11/10 [facility] CHEM PANEL Magnesium 2.6 mg/dL 1.8 - 2.4 11/10 Lvl [facility] ELECTROLYTE Chloride Lvl 102 meq/L 95 - 109 11/10 S [facility] ELECTROLYTE Calcium Lvl 8.6 mg/dL 8.5 - 10.5 11/10 S [facility] ELECTROLYTE Potassium 4.8 meq/L 3.5 - 5.1 11/10 S Lvl [facility] ELECTROLYTE Sodium Lvl 141 meq/L 135 - 145 11/10 S [facility] ELECTROLYTE CO2 29 meq/L 24 - 32 11/10 S [facility] ELECTROLYTE Bili Total 0.7 mg/dL 0.2 - 1.3 11/10 S [facility] ELECTROLYTE Total 6.0 g/dL 6.4 - 8.4 11/10 S [facility] ELECTROLYTE Alk Phos 164 unit/L 39 - 136 11/10 S [facility] ELECTROLYTE AST 14 unit/L 0 - 37 11/10 S [facility] ELECTROLYTE ALT 14 unit/L 0 - 65 11/10 S [facility] ELECTROLYTE Albumin Lvl 2.9 g/dL 3.5 - 5.0 11/10 [facility] ELECTROLYTE Glucose Lvl 153 mg/dL 70 - 99 11/10 [facility] ELECTROLYTE Creatinine 4.87 mg/dL 0.50 - 11/10 S Lvl 1.40 [facility] ELECTROLYTE BUN 28 mg/dL 7 - 22 11/10 [facility] ELECTROLYTE eGFR 9 11/10 Result Comment: The eGFR is calculated using the CKD-EPI formula. In most young, healthy individuals the eGFR will be >90 mL/ min/1.73m2. The eGFR declines with age. An eGFR of 60-89 may be normal in [facility] mL/min/1.7 some populations, particularly the elderly, for whom the CKD-EPI formula has not been extensively validated. Use of the eGFR is not recommended in the following populations: [address] Individuals with unstable creatinine concentrations, including [...] 14.8 meq/L 10.0 - 11/10 S 20.0 [facility] ELECTROLYTE A/G Ratio 0.9 0.7 - 1.6 11/10 [facility] ELECTROLYTE Globulin 3.1 g/dL 2.7 - 4.2 11/10 [facility] ELECTROLYTE B/C Ratio 6 6 - 25 11/10 [facility] HEMATOLOGY WBC 6.1 K/CMM 3.7 - 10.4 11/10 [facility] HEMATOLOGY Hct 28.5 % 36.0 - 06 MH 48.0 [facility] HEMATOLOGY MCV 96.9 fL 80.0 - 06 MH 98.0 [facility] HEMATOLOGY RBC 2.94 M/CMM 4.20 - 06 MH 5.40 [facility] HEMATOLOGY Hgb 9.5 g/dL 12.0 - 06 MH 16.0 [facility] HEMATOLOGY RDW 15.4 % 11.5 - 06 MH 14.5 [facility] HEMATOLOGY Platelet 192 K/CMM 133 - 450 06/ /2016 [facility] MCH 32.1 pg 27.0 - 06/ MH 31.0 /2016 [facility] HEMATOLOGY MCHC 33.2 g/dL 32.0 - 11/10 MH 36.0 /2016 [facility] MPV 8.6 fL 7.4 - 10.4 11/10 [facility] HEMATOLOGY Eosinophils 0.2 K/CMM 0.0 - 0.5 / MH # /2017 [facility] HEMATOLOGY Lymphocytes 1.2 K/CMM 1.0 - 5.5 / MH # /2017 [facility] HEMATOLOGY Monocytes # 0.6 K/CMM 0.0 - 0.8 / [facility] Eosinophils 3.7 % 0.0 - 4.0 11/10 [facility] Segs-Bands # 4.1 K/CMM 1.5 - 8.1 11/10 [facility] Basophils 0.7 % 0.0 - 1.0 11/10 [facility] Monocytes 9.3 % 2.0 - 12.0 11/10 [facility] Lymphocytes 19.5 % 20.0 - 11/10 MH 40.0 [facility] Segs 66.8 % 45.0 - 11/10 MH 75.0 [facility] POC 11.6 g/dL 12.0 - 10/09 Hemoglobin 16.0 [facility] POC Glucose 110 mg/dL 70 - 99 10/09 [facility] POC 4.8 meq/L 3.5 - 5.1 10/09 Potassium /2016 [facility] POC 34.0 % 36.0 - 10/09 Hematocrit 48.0 [facility] POC Sodium 137 meq/L 135 - 145 10/09 [facility] Spine Spine lumbar PROCEDURE : LUMBAR SPINE MRI 01/18 - [facility] lumbar wo wo contrast /2014 - [place] contrast MRI MRI REASON FOR EXAM: Lumbar [...] foraminal narrowing. Mild spinal stenosis. IMPRESSION: 1. Hauula facet arthropathy and disc desiccation. 2. Lumbar [...] Date Comments Source Respitory Rate 18 11/11/2016 [facility] Systolic (mm Hg) 147 11/11/2016 [facility] Diastolic (mm Hg) 62 11/11/2016 [facility] Temperature Oral (F) 98.3 F 11/11/2016 [facility] Heart Rate 83 11/11/2016 [facility] Temperature Oral (F) 98.6 F 11/11/2016 [facility] Respitory Rate 18 11/11/2016 [facility] Heart Rate 81 11/11/2016 [facility] Systolic (mm Hg) 130 11/11/2016 [facility] Diastolic (mm Hg) 58 11/11/2016 [facility] Heart Rate 74 11/11/2016 [facility] Systolic (mm Hg) 117 11/11/2016 [facility] Diastolic (mm Hg) 57 11/11/2016 [facility] Respitory Rate 18 11/11/2016 [facility] Temperature Oral (F) 97.8 F 11/11/2016 [facility] BMI Calculated 20.31 11/10/2016 [facility] Weight 58.818 11/10/2016 [facility] Height 170.18 cm 11/10/2016 [facility] Respitory Rate 17 10/09/2016 [facility] Systolic (mm Hg) 100 10/09/2016 [facility] Diastolic (mm Hg) 41 10/09/2016 [facility] Respitory Rate 12 10/09/2016 [facility] Systolic (mm Hg) 111 10/09/2016 [facility] Diastolic (mm Hg) 40 10/09/2016 [facility] Respitory Rate 19 10/09/2016 [facility] Systolic (mm Hg) 112 10/09/2016 [facility] Diastolic (mm Hg) 47 10/09/2016 [facility] Heart Rate 66 10/09/2016 [facility] BMI Calculated 19.16 09/26/2016 [facility] Height 170.18 cm 09/26/2016 [facility] Weight 55.483 09/26/2016 [facility] Encounters Location Location Encounter Encounter Reason Attending ADM DC Status Source Details Type Number For Provider Date Date Visit [facility] Outpt Diag [id number] Laly 01/18 01/19 [facility] 0 Jethro- /2014 [place] [facility] Surgery [id number] Arash 10/09 10/09 Raymundo 0 Lyos [facility]ation [id number] Randy 11/10 11/11 Raymundo 4 Ismael [facility] Procedures Procedure Code Date Perfomer Comments Source Bilateral breast [id number] [facility] Bilateral [id number] [facility] Creation of [id number] [facility] arteriovenous shunt [facility] or fistula for dialysis by external cannula Hysterectomy [id number] [facility] Kidney transplant [id number] [facility] Nephrectomy [id number] [facility] Removal of breast [id number] [facility] Vascular surgery [id number] LEFT LEG WITH GREAT TOE AMPUTATION; [facility] procedure<sup>1</patel RIGHT LEG WITH GREAT TOE AMPUTATION [facility] p>
[2018-06-26 12:31] LABS: Absolute Lymphocytes (CBC) 0.8 K/uL (0.7-4.9); Absolute Monocytes 0.5 K/uL (0.1-1.3); Absolute Neutrophil 3.8 K/uL (1.8-8.0); Basophils % 0.9 % (0-1.3); Eosinophils % 1.7 % (0-4.4); Lymphocytes % 16.1 % (15.3-44.8); MPV 7.9 fL (7.6-11.3); Monocytes % 8.8 % (3.3-12.3); RBC Red Blood Cell Count 4.47 M/uL (3.86-4.86)
[2018-06-26 13:08] LABS: Albumin 2.9 g/dL (3.4-5.0); Bilirubin Total 0.5 mg/dL (0.2-1.0); Protein, Total 6.8 g/dL (6.4-8.2)
[2018-06-26] MEDS ORDERED: GLUCAGON 1 MG/VIAL IM PRN (16:35)
[2018-06-26] MEDS ORDERED: D50W 25 GM/50 ML SYRINGE IV PRN (16:35)
--- NOTE | 2018-06-26 16:45 | P.HP ---
Patient History Date of Service: 06/26/18 Primary Care Provider: Dr. estes History of Present Illness: This is a 63-year-old female with type 1 diabetes on insulin pump, hypothyroidism, ESRD on dialysis, Saturday, Saturday, Saturday, hypertension and COPD admitted for left hip pain after fall. The patient she fell on Saturday prior to admission, went to the ER and was told that imaging shows no fractures and was sent home with follow up with Dr. Katz in his office. Patient with the MRI of the head done the day prior to admission. She saw Dr. Katz than in the office on the day of admission where she was told she has 3 breaks in the pelvic area. She was admitted directly to the hospital from Dr. Meyer's clinic. At the time of my exam, she was alert oriented x3 in mild to moderate distress secondary to pain and was hemodynamically stable. Allergies Penicillins Allergy (Verified 08/30/17 10:31) Hives Home Medications: Ascorbic Acid [Vitamin C*] 1,000 mg PO DAILY 09/30/14 B Complex with Vitamin C [Super B Complex with C] 1 cap PO DAILY 09/30/14 Biotin [Nail-Ex] 5,000 mg PO DAILY 09/30/14 Carvedilol [Coreg*] 25 mg PO BID 09/30/14 Cholecalciferol (Vitamin D3) [Vitamin D3] 5,000 unit PO DAILY 09/30/14 Hydralazine [Apresoline*] 100 mg PO DAILY 09/30/14 Isosorbide Mononitrate [Isosorbide Mononitrate ER] 120 mg PO DAILY 09/30/14 Levothyroxine [Synthroid*] 150 mcg PO [id number] 09/30/14 Losartan Potassium [Cozaar*] 50 mg PO BID 09/30/14 Nifedipine [Procardia Xl] 90 mg PO BID 09/30/14 Pravastatin Sodium [Pravachol] 20 mg PO BEDTIME 09/30/14 Pyridoxine [Vitamin B-6*] 100 mg PO DAILY 09/30/14 Sevelamer Carbonate [Renvela*] 800 mg PO TID 09/30/14 Ferrous Sulfate [Ferrous Sulfate*] 2 tab PO DAILY 10/12/14 Esomeprazole Magnesium 40 mg PO DAILY 06/14/17 Insulin Aspart [Novolog] See Protocol SQ SEECOM 06/14/17 Liothyronine Sodium [Cytomel] 5 mcg PO BID 06/14/17 - Past Medical/Surgical History Has patient received pneumonia vaccine in the past: Yes Diabetic: Yes -: dm -: htn -: kidney transplant -: cataract sx -: breast augmentation - Social History Smoking Status: Never smoker Alcohol use: No CD- Drugs: No Caffeine use: Yes Place of Residence: Home Review of Systems 10-point ROS is otherwise unremarkable Physical Examination - Vital Signs Temperature: 96.6 F Blood Pressure: 132/61 Pulse: 62 Respirations: 18 Pulse Ox (%): 93 - Physical Exam General: Alert, Oriented x3, Moderate distress HEENT: Atraumatic, PERRLA, Mucous membr. moist/pink, EOMI, Sclerae nonicteric Neck: Supple, 2+ carotid pulse no bruit, No LAD, Without JVD or thyroid abnormality Respiratory: Clear to auscultation bilaterally, Normal air movement Cardiovascular: Regular rate/rhythm, Normal S1 S2 Gastrointestinal: Normal bowel sounds, No tenderness Musculoskeletal: Tenderness Integumentary: No rashes Neurological: Normal gait, Normal speech, Normal strength at 5/5 x4 extr, Normal tone, Normal affect Lymphatics: No axilla or inguinal lymphadenopathy - Studies Laboratory Data (last 24 hrs) 06/26/18 12:22: Sodium 136, Potassium 6.0 H*, BUN 39 H, Creatinine 6.40 H*, Glucose 135 H, Total Bilirubin 0.5, AST 15, ALT 11 L, Alkaline Phosphatase 192 H 06/26/18 12:22: WBC 5.2, Hgb 13.3, Hct 42.0, Plt Count 200 06/26/18 12:22: Troponin I 0.03 Assessment and Plan - Problems (Diagnosis) (1) Closed left ischial fracture Current Visit: Yes Status: Acute Qualifiers: Encounter type: initial encounter Fracture morphology: unspecified fracture morphology Fracture alignment: nondisplaced Qualified Code(s): S32.602A - Unspecified fracture of left ischium, initial encounter for closed fracture (2) Type 1 diabetes mellitus on insulin therapy Current Visit: Yes Status: Chronic (3) Hypothyroidism Current Visit: No Status: Chronic Qualifiers: Hypothyroidism type: unspecified (4) ESRD (end stage renal disease) on dialysis Onset Date: 06/17/17 Current Visit: No Status: Chronic (5) HTN (hypertension) Onset Date: 06/17/17 Current Visit: No Status: Chronic Qualifiers: Hypertension type: essential hypertension (6) COPD (chronic obstructive pulmonary disease) Onset Date: 06/17/17 Current Visit: No Status: Chronic Qualifiers: COPD type: unspecified COPD Qualified Code(s): J44.9 - Chronic obstructive pulmonary disease, unspecified - Plan This is a 63-year-old female with: Closed left ischial fracture (Acute) S32.602A Type 1 diabetes mellitus on insulin therapy (Acute) E10.9 Hypothyroidism (Chronic) E03.9 ESRD (end stage renal disease) on dialysis (Chronic 06/17/17) N18.6, Z99.2 HTN (hypertension) (Chronic 06/17/17) I10 COPD (chronic obstructive pulmonary disease) (Chronic 06/17/17) J44.9 History of cardiac murmur, patient unsure further details. Patient's golf course designer is Dr. Acevedo Patient admitted from Dr. Santos' office for medical clearance for hip surgery. Patient's risk factors include type 1 diabetes with insulin pump, ESRD on hemodialysis, AH, cardiac disease history Cardiology consulted for cardiac clearance Nephrology consulted for ESRD, dialysis patient Will continue Accu-Cheks, sliding scale insulin. Patient currently on the pump for insulin. Pending medication list to be brought from home by . Will bring someone restart home medications as needed once list is broad. Hold anticoagulation at this time. - Advance Directives Does patient have a Living Will: No Does patient have a Durable POA for Healthcare: No
[2018-06-26] MEDS: HYDROCODONE/APAP 7.5/325 MG TAB PO PRN ×2 (16:56→22:19)
[2018-06-26] MEDS ORDERED: EPOETIN ALFA 10,000 UNIT/ML SQ ONE (20:51)
[2018-06-26] MEDS ORDERED: SOD POLYSTYREN SUL 15 GM/60 ML UCUP PO ONE (20:51)
--- NOTE | 2018-06-26 20:57 | P.CNS ---
Date of Consult: 06/26/18 Reason for Consult: ESRD Requesting Physician: Josefina Borges Primary Care Provider: Dr. estes Chief Complaint: Left Hip Pain History of Present Illness: 63 yo WF HTN, CKD presented as a direct admission for pelvic fx X3 sp a fall on Saturday with associated left hip pain. Hospitalist: This is a 63-year-old female with type 1 diabetes on insulin pump , hypothyroidism, ESRD on dialysis, Saturday, Saturday, Saturday, hypertension and COPD admitted for left hip pain after fall. The patient she fell on Saturday prior to admission, went to the ER and was told that imaging shows no fractures and was sent home with follow up with Dr. Katz in his office. Patient with the MRI of the head done the day prior to admission. She saw Dr. Katz than in the office on the day of admission where she was told she has 3 breaks in the pelvic area. She was admitted directly to the hospital from Dr. Meyer's clinic. At the time of my exam, she was alert oriented x3 in mild to moderate distress secondary to pain and was hemodynamically stable. Allergies Penicillins Allergy (Verified 08/30/17 10:31) Hives Home medications list reviewed: Yes Home Medications: Ascorbic Acid [Vitamin C*] 1,000 mg PO BID 09/30/14 B Complex with Vitamin C [Super B Complex with C] 1 cap PO DAILY 09/30/14 Biotin [Nail-Ex] 5,000 mg PO DAILY 09/30/14 Carvedilol [Coreg*] 25 mg PO BID 09/30/14 Cholecalciferol (Vitamin D3) [Vitamin D3] 5,000 unit PO DAILY 09/30/14 Hydralazine [Apresoline*] 100 mg PO BID 09/30/14 Isosorbide Mononitrate [Isosorbide Mononitrate ER] 120 mg PO BEDTIME 09/30/14 Levothyroxine [Synthroid*] 150 mcg PO [id number] 09/30/14 Losartan Potassium [Cozaar*] 50 mg PO BID 09/30/14 Nifedipine [Procardia Xl] 90 mg PO BID 09/30/14 Pravastatin Sodium [Pravachol] 20 mg PO BEDTIME 09/30/14 Pyridoxine [Vitamin B-6*] 100 mg PO DAILY 04/23/15 Sevelamer Carbonate [Renvela*] 800 mg PO TID 09/30/14 Ferrous Sulfate [Ferrous Sulfate*] 2 tab PO DAILY 10/12/14 Esomeprazole Magnesium 40 mg PO BID 06/14/17 Insulin Aspart [Novolog] See Protocol SQ SEECOM 06/14/17 Liothyronine Sodium [Cytomel] 5 mcg PO BID 06/14/17 Doxazosin [Cardura] 1 mg PO BEDTIME 06/26/18 Fish Oil/Dha/Epa [Fish Oil 1,200 mg Fish Oil] 1 each PO DAILY 06/26/18 Folic Acid/Vit B Complex and C [Dialyvite 800 Chewable Wafer] 800 mcg PO DAILY 06/26/18 - Past Medical/Surgical History Diabetic: Yes -: dm -: htn -: kidney transplant -: cataract sx -: breast augmentation - Social History Smoking Status: Former smoker Alcohol use: No CD- Drugs: No Caffeine use: Yes Place of Residence: Home Review of Systems 10-point ROS is otherwise unremarkable General: Weakness, Malaise Respiratory: SOB with Excertion Musculoskeletal: Leg Pain Physical Examination Temp Pulse Resp BP Pulse Ox 96.6 F L 62 18 132/61 93 06/26/18 16:45 06/26/18 16:45 06/26/18 16:45 06/26/18 16:45 06/26/18 16:45 General: Alert, Oriented x3, Cooperative HEENT: Atraumatic, Mucous membr. moist/pink Neck: Supple Respiratory: Clear to auscultation bilaterally Cardiovascular: No rubs, Edema Gastrointestinal: Soft and benign, Non-distended Musculoskeletal: No clubbing, No contractures Integumentary: No rashes, No cyanosis Neurological: Normal speech Laboratory Data (last 24 hrs) 06/26/18 12:22: Sodium 136, Potassium 6.0 H*, BUN 39 H, Creatinine 6.40 H*, Glucose 135 H, Total Bilirubin 0.5, AST 15, ALT 11 L, Alkaline Phosphatase 192 H 06/26/18 12:22: WBC 5.2, Hgb 13.3, Hct 42.0, Plt Count 200 06/26/18 12:22: Troponin I 0.03 Imagings Data: EXAM DESCRIPTION: RAD - Pelvis - 06/20/2018 7:08 am CLINICAL HISTORY: Left hip pain status post fall FINDINGS: A nondisplaced fracture involves the left ischium. This may be subacute and should be correlated clinically. Bones are osteoporotic No additional fracture or dislocation seen. If patient has clinical symptoms to suggest an occult femoral fracture MRI would be recommended Conclusions/Impression: A/ ESRD on HD. Hyperkalemia. HTN with CKD/ CHF. Diastolic CHF, chronic. DM I with CKD. Anemia in CKD. TAWNYA/ Secondary HyperPTH. Left hip fx with acute pain. P/ Continue current POC and Medications. Arrange for acute HD. Give a dose of Kayexalate. Give Epo. Restart home medications as indicated. Cardiology clearance for surgery. Follow up with Dr. Katz. No NSAIDs. AM labs. Daily weight. Thank you kindly for the consultation.
[2018-06-26] MEDS ORDERED: NA CHLORIDE 0.9% 1,000 ML IV PRN (21:00)
[2018-06-26] MEDS ORDERED: EPOETIN ALFA 10,000 UNIT/ML VIAL IV SCH (21:00)
[2018-06-26] MEDS ORDERED: INSULIN -REGULAR HUMAN 50 UNIT/0.5 ML ML SQ SCH (21:00)
[2018-06-26] MEDS ORDERED: DOXAZOSIN 1 MG TAB PO SCH (21:00)
[2018-06-26] MEDS ORDERED: ALBUMIN HUMAN 25% 50 ML IV SCH (21:00)
[2018-06-26] MEDS ORDERED: MANNITOL 25% 12.5 GM/50 ML VIAL IV PRN (21:00)
[2018-06-26] MEDS: CARVEDILOL 25 MG TAB PO SCH (22:20)
[2018-06-26] MEDS: ISOSORBIDE MONO SR 60 MG TAB PO SCH (22:21)
[2018-06-26] MEDS: ATORVASTATIN 10 MG TAB PO SCH (22:21)
[2018-06-26] MEDS: HYDRALAZINE HCL 25 MG TABLET PO SCH (22:21)
[2018-06-26] MEDS: LIOTHYRONINE SOD 5 MCG TAB PO SCH (22:22)
[2018-06-26] MEDS: LOSARTAN POTASSIUM 50 MG TABLET PO SCH (22:22)
[2018-06-26] MEDS: NIFEDIPINE XL 90 MG TABLET PO SCH (23:04)
[2018-06-27] MEDS: HYDROMORPHONE HCL 1 MG/ML INJ IV PRN ×2 (03:40→16:25)
[2018-06-27] MEDS: LEVOTHYROXINE SOD 0.075 MG TAB PO SCH (05:11)
[2018-06-27] MEDS: PANTOPRAZOLE 40MG TABLET PO SCH ×2 (05:11→17:36)
[2018-06-27] MEDS: HYDRALAZINE HCL 25 MG TABLET PO SCH ×2 (07:40→21:43)
[2018-06-27] MEDS: LIOTHYRONINE SOD 5 MCG TAB PO SCH ×2 (07:40→21:43)
[2018-06-27] MEDS: NIFEDIPINE XL 90 MG TABLET PO SCH ×2 (07:40→21:44)
[2018-06-27] MEDS: HYDROCODONE/APAP 7.5/325 MG TAB PO PRN ×3 (07:41→23:18)
[2018-06-27] MEDS: CARVEDILOL 25 MG TAB PO SCH ×2 (07:42→21:45)
[2018-06-27 08:55] LABS: Albumin 2.9 g/dL (3.4-5.0); Bilirubin Total 0.5 mg/dL (0.2-1.0); Phosphorus 5.5 mg/dL (2.5-4.9); Potassium 6.2 mmol/L (3.5-5.1); Protein, Total 6.6 g/dL (6.4-8.2)
[2018-06-27] MEDS: LOSARTAN POTASSIUM 50 MG TABLET PO SCH ×2 (08:59→21:45)
[2018-06-27] MEDS: FERROUS SULFATE 325 MG TAB PO SCH (09:00)
[2018-06-27] MEDS ORDERED: INSULIN -REGULAR HUMAN 50 UNIT/0.5 ML ML SQ SCH (12:00)
--- NOTE | 2018-06-27 12:28 | P.PN ---
Subjective Date of Service: 06/27/18 Primary Care Provider: Dr. estes Chief Complaint: Left Hip Pain Subjective: No new changes, No C/O voiced Patient seen and examined at bedside. No family at bedside. Chart reviewed and case discussed with nursing staff. Reports no changes in pain. Does have pain with any movement Review of Systems 10-point ROS is otherwise unremarkable Physical Examination - Vital Signs Temperature: 97.7 F Blood Pressure: 150/74 Pulse: 79 Respirations: 18 Pulse Ox (%): 91 - Physical Exam General: Alert, In no apparent distress, Oriented x3 HEENT: Atraumatic, PERRLA, EOMI Neck: Supple, JVD not distended Respiratory: Clear to auscultation bilaterally, Normal air movement Cardiovascular: Regular rate/rhythm, Normal S1 S2 Gastrointestinal: Normal bowel sounds, No tenderness Musculoskeletal: Tenderness Integumentary: No rashes Neurological: Normal speech, Normal tone, Normal affect Lymphatics: No axilla or inguinal lymphadenopathy - Studies Laboratory Data (last 24 hrs) 06/27/18 05:53: Sodium 134 L, Potassium 6.2 H*, BUN 47 H, Creatinine 7.36 H*, Glucose 135 H, Phosphorus 5.5 H, Magnesium 3.0 H, Total Bilirubin 0.5, AST 15, ALT 8 L, Alkaline Phosphatase 190 H 06/27/18 05:53: WBC 6.3 D, Hgb [employer], Hct [employer], Plt Count [employer] 06/26/18 12:22: Sodium 136, Potassium 6.0 H*, BUN 39 H, Creatinine 6.40 H*, Glucose 135 H, Total Bilirubin 0.5, AST 15, ALT 11 L, Alkaline Phosphatase 192 H 06/26/18 12:22: WBC 5.2, Hgb 13.3, Hct 42.0, Plt Count 200 06/26/18 12:22: Troponin I 0.03 Assessment And Plan - Current Problems (Diagnosis) (1) Closed left ischial fracture Onset Date: 06/27/18 Current Visit: Yes Status: Acute Qualifiers: Encounter type: initial encounter Fracture morphology: unspecified fracture morphology Fracture alignment: nondisplaced Qualified Code(s): S32.602A - Unspecified fracture of left ischium, initial encounter for closed fracture (2) Type 1 diabetes mellitus on insulin therapy Onset Date: 06/27/18 Current Visit: Yes Status: Chronic (3) Hypothyroidism Onset Date: 06/27/18 Current Visit: Yes Status: Chronic Qualifiers: Hypothyroidism type: unspecified (4) ESRD (end stage renal disease) on dialysis Onset Date: 06/17/17 Current Visit: No Status: Chronic (5) HTN (hypertension) Onset Date: 06/17/17 Current Visit: No Status: Chronic Qualifiers: Hypertension type: essential hypertension (6) COPD (chronic obstructive pulmonary disease) Onset Date: 06/17/17 Current Visit: No Status: Chronic Qualifiers: COPD type: unspecified COPD Qualified Code(s): J44.9 - Chronic obstructive pulmonary disease, unspecified - Plan This is a 63-year-old female with: Closed left ischial fracture (Acute) S32.602A Type 1 diabetes mellitus on insulin therapy (Acute) E10.9 Hypothyroidism (Chronic) E03.9 ESRD (end stage renal disease) on dialysis (Chronic 06/17/17) N18.6, Z99.2 HTN (hypertension) (Chronic 06/17/17) I10 COPD (chronic obstructive pulmonary disease) (Chronic 06/17/17) J44.9 History of cardiac murmur, patient unsure further details. Patient's public health nutritionist is Dr. Acevedo Patient admitted from Dr. Santos' office for medical clearance for hip surgery. Patient is medically for surgery. Patient's risk factors include type 1 diabetes with insulin pump, ESRD on hemodialysis, cardiac disease history Cardiology consulted for cardiac clearance, patient cleared by cardiology. Recommendations appreciated Nephrology consulted for ESRD, dialysis patient. Recommendations appreciated Will continue Accu-Cheks, sliding scale insulin. Patient currently on the pump for insulin. Home medications restarted Hold anticoagulation at this time. DVT prophylaxis: Hold GI prophylaxis: None Diet: Heart healthy, was changed to NPO Disposition: Pending orthopedic surgery evaluation. Patient is cleared for surgery medically and from cardiology point of view. Time Spent Managing PTS Care (In Minutes): 35
[2018-06-27] MEDS ORDERED: ACETAMINOPHEN 325 MG TABLET PO PRN (14:02)
[2018-06-27] MEDS: INSULIN -REGULAR HUMAN 50 UNIT/0.5 ML ML SQ SCH ×2 (16:30→21:00)
[2018-06-27 17:45] LABS: Potassium 4.9 mmol/L (3.5-5.1)
[2018-06-27] MEDS ORDERED: SOD POLYSTYREN SUL 15 GM/60 ML UCUP PO ONE (19:42)
--- NOTE | 2018-06-27 19:45 | P.PN ---
Date of Service: 06/27/18 Vital Signs Temp Pulse Resp BP Pulse Ox 98.9 F 80 18 173/84 H 92 06/27/18 16:00 06/27/18 16:00 06/27/18 16:00 06/27/18 16:00 06/27/18 16:00 Medications Acetaminophen (Tylenol -Tablet) 650 mg PO Q4H PRN PRN Reason: [id number] Stop: 07/27/18 14:03 Last Admin: 06/27/18 14:18 Dose: 650 mg Hydrocodone Bitart/Acetaminophen (Congress 7.5/325 Mg) 1 tab PO Q4H PRN PRN Reason: PAIN Stop: 07/26/18 16:35 Last Admin: 06/27/18 12:12 Dose: 1 tab Atorvastatin Calcium (Lipitor) 10 mg PO BEDTIME [facility] Stop: 07/26/18 21:01 Last Admin: 06/26/18 22:21 Dose: 10 mg Carvedilol (Coreg) 25 mg PO BID [facility] Stop: 07/26/18 21:01 Last Admin: 06/27/18 07:42 Dose: 25 mg Dextrose (Dextrose 50% Syringe) 12.5 gm IV PRN PRN; Protocol PRN Reason: HYPOGLYCEMIA Stop: 07/26/18 16:36 Doxazosin Mesylate (Cardura) 1 mg PO BEDTIME [facility] Stop: 07/27/18 21:01 Epoetin Edmond (Procrit) 10,000 unit IV EVERY HD [facility] Stop: 07/26/18 21:01 Ferrous Sulfate (Feosol) 650 mg PO DAILY [facility] Stop: 07/27/18 09:01 Last Admin: 06/27/18 09:00 Dose: Not Given Glucagon (Glucagen) 1 mg IM 1X PRN; Protocol PRN Reason: HYPOGLYCEMIA Stop: 07/26/18 16:36 Heparin Sodium (Porcine) (Heparin 1,000 Units/Ml) 6,000 unit IJ EVERY HD PRN PRN Reason: FLUSH AFTER EACH USE Stop: 07/26/18 21:01 Hydralazine HCl (Apresoline) 100 mg PO BID [facility] Stop: 07/26/18 21:01 Last Admin: 06/27/18 07:40 Dose: 100 mg Hydromorphone HCl (Dilaudid) 1 mg IV Q4H PRN PRN Reason: PAIN MODERATE TO SEVERE Stop: 02/17/19 01:52 Last Admin: 06/27/18 16:25 Dose: 1 mg Albumin Human (Albumin 25%) 50 mls @ 100 mls/hr IV EVERY HD [facility] Stop: 07/26/18 21:01 Insulin Human Regular (Novolin -R) 0 unit SQ ACHS [facility]; Protocol Stop: 07/27/18 16:31 Last Admin: 06/27/18 16:30 Dose: Not Given Isosorbide Mononitrate (Imdur) 120 mg PO BEDTIME [facility] Stop: 07/26/18 21:01 Last Admin: 06/26/18 22:21 Dose: 120 mg Levothyroxine Sodium (Synthroid) 0.15 mg PO [id number] [facility] Stop: 07/27/18 06:01 Last Admin: 06/27/18 05:11 Dose: Not Given Liothyronine Sodium (Cytomel) 5 mcg PO BID [facility] Stop: 07/26/18 21:01 Last Admin: 06/27/18 07:40 Dose: 5 mcg Losartan Potassium (Cozaar) 50 mg PO BID [facility] Stop: 07/26/18 21:01 Last Admin: 06/27/18 08:59 Dose: Not Given Mannitol (Mannitol 12.5 Gm/50 Ml Vial) 12.5 gm IV EVERY HD PRN PRN Reason: BP support at hemodialysis Stop: 07/26/18 21:01 Nifedipine (Procardia Xl) 90 mg PO BID [facility] Stop: 07/26/18 21:01 Last Admin: 06/27/18 07:40 Dose: 90 mg Pantoprazole Sodium (Protonix Tab) 40 mg PO 0630,1630 [facility] Stop: 07/27/18 06:31 Last Admin: 06/27/18 17:36 Dose: 40 mg Sodium Chloride (Normal Saline Flush) 10 ml IV BID [facility] Stop: 07/26/18 21:01 Last Admin: 06/27/18 09:00 Dose: Not Given Sodium Polystyrene Sulfonate (Kayexelate) 30 gm PO 1X ONE Stop: 06/27/18 19:43 Lab Results (last 24 hrs) 06/27/18 17:20: Sodium 135 L, Potassium 4.9, Chloride 102, Carbon Dioxide 24, BUN 20 H D, Creatinine 4.42 H D, Estimated GFR 10 L, Glucose 84, Calcium 8.8 06/27/18 16:11: POC Glucose 86 06/27/18 11:47: POC Glucose 76 06/27/18 06:27: POC Glucose 183 H 06/27/18 05:53: Sodium 134 L, Potassium 6.2 H*, Chloride 99, Carbon Dioxide 23, BUN 47 H, Creatinine 7.36 H*, Estimated GFR 6 L, Glucose 135 H, Calcium 8.6, Phosphorus 5.5 H, Magnesium 3.0 H, Total Bilirubin 0.5, AST 15, ALT 8 L, Alkaline Phosphatase 190 H, Serum Total Protein 6.6, Albumin 2.9 L, Globulin 3.7 H, Albumin/Globulin Ratio 0.8 L 06/27/18 05:53: WBC 6.3 D, RBC TONGUE TRIMMER, Hgb TONGUE TRIMMER, Hct TONGUE TRIMMER, MCV TONGUE TRIMMER, MCH TONGUE TRIMMER, MCHC TONGUE TRIMMER, Plt Count TONGUE TRIMMER, Neutrophils % TONGUE TRIMMER, Lymphocytes % TONGUE TRIMMER, Absolute Neutrophils TONGUE TRIMMER, Absolute Lymphocytes TONGUE TRIMMER, Absolute Monocytes TONGUE TRIMMER, Absolute Eosinophils TONGUE TRIMMER, Absolute Basophils TONGUE TRIMMER 06/26/18 20:26: POC Glucose 160 H 06/26/18 16:02: POC Glucose 228 H Assessment/ Plan: Nephrology CPS stable without CP or SOB. No acute events overnight. Feeling better. HD this morning without difficulty. Vitals, medications, blood work and imaging reviewed in the chart. General: Alert, Oriented x3, Cooperative HEENT: Atraumatic, Mucous membr. moist/pink Neck: Supple Respiratory: Clear to auscultation bilaterally Cardiovascular: No rubs, Edema Gastrointestinal: Soft and benign, Non-distended Musculoskeletal: No clubbing, No contractures Integumentary: No rashes, No cyanosis Neurological: Normal speech Laboratory Data (last 24 hrs) 06/26/18 12:22: Sodium 136, Potassium 6.0 H*, BUN 39 H, Creatinine 6.40 H*, Glucose 135 H, Total Bilirubin 0.5, AST 15, ALT 11 L, Alkaline Phosphatase 192 H 06/26/18 12:22: WBC 5.2, Hgb 13.3, Hct 42.0, Plt Count 200 06/26/18 12:22: Troponin I 0.03 Imagings Data: EXAM DESCRIPTION: RAD - Pelvis - 06/20/2018 7:08 am CLINICAL HISTORY: Left hip pain status post fall FINDINGS: A nondisplaced fracture involves the left ischium. This may be subacute and should be correlated clinically. Bones are osteoporotic No additional fracture or dislocation seen. If patient has clinical symptoms to suggest an occult femoral fracture MRI would be recommended Conclusions/Impression: A/ ESRD on HD. Hyperkalemia. HTN with CKD/ CHF. Diastolic CHF, chronic. DM I with CKD. Anemia in CKD. TAWNYA/ Secondary HyperPTH. Left hip fx with acute pain. P/ Continue current POC and Medications. Acute HD as ordered. Give another dose of Kayexalate. Cardiology clearance for surgery. Follow up with Dr. Katz. No NSAIDs. AM labs. Daily weight.
[2018-06-27] MEDS: ATORVASTATIN 10 MG TAB PO SCH (21:43)
[2018-06-27] MEDS: DOXAZOSIN 2 MG TAB PO SCH (21:44)
[2018-06-27] MEDS: ISOSORBIDE MONO SR 60 MG TAB PO SCH (21:45)
--- NOTE | 2018-06-27 23:11 | CON ---
Date of Consultation: 06/26/2018 The patient is admitted to Dr. Borges on 06/26/2018 for hip fracture. Reason For Consultation: Cardiac clearance preoperatively. History Of Present Illness: Ms. Hightower is 63, has a history of hemodialysis, anemia, hypertension, dyslipidemia, diabetes, and hypothyroidism. She came in status post fall and had a hip fracture. No cardiac symptoms reported. She denies PND, orthopnea, pedal edema, palpitations, syncope or chest p ain. Allergies: PENICILLIN. Past Medical History: As stated earlier. Review of Systems: Negative. Social History: Negative. Family History: Noncontributory. Medications: At home include hydralazine, Cozaar, Cardura, Coreg, Procardia, iron, Imdur, insulin, P ravachol and Synthroid. Physical Examination: General: She was hypertensive at 180/80. No acute distress. Vital signs: Stable otherwise sinus rhythm, afebrile. HEENT: Negative. Neck: Supple. No bruit, lymphadenopathy, JVD, or thyromegaly. Chest: Clear to auscultation and percussion. Cardiac: Revealed a regular rhythm and rate with an S4 gallop. No murmurs or rubs. Abdomen: Benign. Extremities: Revealed no clubbing, cyanosis, or edema. Skin: Dry and intact. Neurologic: She was nonfocal. She had good distal pulses bilaterally. Diagnostic Data: Potassium was 6, creatinine is 6.4, and glucose 183. Chest x-ray is negative. EKG showed LVH. Echocardiogram in June of last year showed LVH with hyperdynamic ejection fraction. Impression And Plan: 1.The patient is 63 years old. No cardiac symptoms, normal ejection fraction a year ago. No eviden ce clinically of congestive heart failure. I think she is at low risk of perioperative mortality as far as her hip surgery is concerned. 2.End-stage renal disease, on hemodialysis, with hyperkalemia. Creatinine is 6.4. I think she need s her potassium corrected for sure. She needs to have Renal consultation. 3.Hypertension that needs to be observed. She may be hypertensive secondary to her pain. She is on many medication for blood pressure and the need to be continued postoperatively. 4.Diabetes, poorly controlled. 5.Anemia. 6.Hypothyroidism, on Synthroid. 7.Dyslipidemia, on Pravachol. We will follow Ms. Hightower along with Dr. Borges postoperatively. I will be available if any question s arises. I do not think she needs any further cardiac workup at this point. LOULOU/LANRE Voice ID: [id number] Report ID: [id number]
[2018-06-28] MEDS: LEVOTHYROXINE SOD 0.075 MG TAB PO SCH (05:04)
[2018-06-28] MEDS: PANTOPRAZOLE 40MG TABLET PO SCH ×2 (05:04→16:04)
--- NOTE | 2018-06-28 05:21 | CON ---
Date of Consultation: 06/27/2018 History Of Present Illness: I have seen Ms. Hightower in the past. She has the inability to ambulate or really even move her left lower extremity. She was seen and examined in the emergency department where she had x-rays which demonstrated a probable pelvis fracture. However, I was suspicious that s he may have additional fractures including the possibility of hip fracture. Therefore, she was sent from my office for an MRI. She arrives back after MRI. MRI is examined, which demonstrates a nondis placed fracture through the intertrochanteric region as well as a fracture of the anterior wall of th e acetabulum which is incomplete and nondisplaced. She was therefore admitted under the care of the hospitalist, and I am coming back to see her today. She is just coming out of dialysis. She does henderson ve a history of multiple other medical problems. Her potassium was over 6 this morning, but now she has been dialyzed. Hemoglobin was 13. She has been seen and cleared by Cardiology, and Nephrology i s following her actively. At this time, she will be n.p.o. after midnight. We will attempt to get a t least a potassium in the morning to ensure that she does not have hyperkalemia, but I suspect that it will be fine as she is dialyzed today. Risks, benefits, and alternatives to the procedure have be en discussed with the patient. There is a consent on the chart. All of her questions have been answ ered. We will plan for an intramedullary avni fixation of her left hip. /LANRE Voice ID: [id number] Report ID: [id number]
[2018-06-28 06:01] LABS: Absolute Lymphocytes (CBC) 0.9 K/uL (0.7-4.9); Absolute Monocytes 0.5 K/uL (0.1-1.3); Absolute Neutrophil 3.8 K/uL (1.8-8.0); Eosinophils % 1.3 % (0-4.4); Hematocrit 43.8 % (36.0-45.0); Lymphocytes % 17.2 % (15.3-44.8); MPV 8.6 fL (7.6-11.3); Monocytes % 9.5 % (3.3-12.3); RBC Red Blood Cell Count 4.74 M/uL (3.86-4.86)
[2018-06-28 06:50] LABS: Albumin 2.9 g/dL (3.4-5.0); Bilirubin Total 0.5 mg/dL (0.2-1.0); Potassium 4.9 mmol/L (3.5-5.1); Protein, Total 6.8 g/dL (6.4-8.2)
[2018-06-28] MEDS: INSULIN -REGULAR HUMAN 50 UNIT/0.5 ML ML SQ SCH ×3 (07:30→21:00)
[2018-06-28] MEDS ORDERED: FENTANYL CITR 100 MCG/2 ML ONE (08:40)
[2018-06-28] MEDS ORDERED: MIDAZOLAM HCL 2 MG/2 ML INJ ONE (08:40)
[2018-06-28] MEDS ORDERED: ONDANSETRON 4 MG/2 ML VIAL ONE (08:40)
[2018-06-28] MEDS ORDERED: KETAMINE HCL 500 MG/5 ML VIAL ONE (08:41)
[2018-06-28] MEDS ORDERED: NA CHLORIDE 0.9% 500 ML ONE (08:45)
[2018-06-28] MEDS: FERROUS SULFATE 325 MG TAB PO SCH (09:00)
[2018-06-28] MEDS: LOSARTAN POTASSIUM 50 MG TABLET PO SCH ×2 (09:00→21:17)
[2018-06-28] MEDS ORDERED: CLINDAMYCIN INJ 600 MG in NA CHLORIDE 0.9% 50 ML IV ONE (09:00)
[2018-06-28] MEDS: HYDRALAZINE HCL 25 MG TABLET PO SCH ×2 (09:00→21:17)
[2018-06-28] MEDS: NIFEDIPINE XL 90 MG TABLET PO SCH ×2 (09:00→21:17)
[2018-06-28] MEDS: LIOTHYRONINE SOD 5 MCG TAB PO SCH ×2 (09:00→21:17)
[2018-06-28] MEDS: CARVEDILOL 25 MG TAB PO SCH ×2 (09:00→21:15)
[2018-06-28] MEDS ORDERED: KETOROLAC 30 MG/ML INJ ONE (10:04)
--- NOTE | 2018-06-28 10:45 | RAD REPORT ---
EXAM DESCRIPTION: RAD - Hip In Or - 06/28/2018 10:15 am CLINICAL HISTORY: Left femoral fracture FINDINGS: Intramedullary avni and compression screw affix a left femoral fracture. Thirty-two fluoroscopic spot images obtained. Fluoroscopy time 1.1 minute The Procedure was performed by Dr. Katz
[2018-06-28] MEDS ORDERED: INSULIN -REGULAR HUMAN 50 UNIT/0.5 ML ML SQ SCH (12:00)
[2018-06-28] MEDS: HYDROMORPHONE HCL 1 MG/ML INJ IV PRN (13:01)
[2018-06-28] MEDS: CLINDAMYCIN INJ 600 MG in NA CHLORIDE 0.9% 50 ML IV SCH ×2 (16:03→21:16)
--- NOTE | 2018-06-28 17:15 | OP ---
Date of Procedure: 06/28/2018 Surgeon: José Katz MD Preoperative Diagnosis: Left hip nondisplaced intertrochanteric fracture. Postoperative Diagnosis: Left hip nondisplaced intertrochanteric fracture. Procedure: Left hip intramedullary avni fixation. Estimated Blood Loss: 20 cc. Complications: There were no complications. Specimen: No pathology specimens sent. Indication For Operation: Ms. Hightower is a 63-year-old female, who I had seen in the past. She arri rosa m to my clinic with severe complaints of pain in her left hip. She had x-rays, which did not demon strate any significant overt fracture other than perhaps some pubic rami fracture, however, she had p ain with any movement or manipulation of her left hip. She was therefore sent for an MRI. MRI was d one, which demonstrated pubic rami fracture as well as a nondisplaced anterior column fracture of the acetabulum, which appears incomplete as well as an intertrochanteric fracture on the left, which was nondisplaced. She was then admitted to the hospital, and all risks, benefits, and alternatives to f ixation of left intertrochanteric fracture were discussed with the patient and family. They state th ey understand things as presented and wished to proceed. Description Of Procedure: The patient was taken to the operating room and placed in the supine posit ion. General anesthesia was obtained by staff. Following this, she was then transferred to the oper ative table, where she was appropriately positioned on the fracture table. Left lower extremity was then prepped and draped in usual sterile fashion for the procedure. C-arm was brought in to ensure t hat there had been no displacement and that the good visualization could be obtained. After this, a standard superior incision was made, and a starting awl was used for placement of a guide pin, which passed easily down the femur. Following this, launderer hand was used and the avni was placed to appropr iate depth. One cephalomedullary screw as well as 1 distal interlocking screw were placed without di fficulty. The wounds were copiously irrigated. The fascia was closed in a watertight fashion using heavy Vicryl sutures, followed by closure of skin with Vicryl followed by kellie. The patient was t hen awakened and taken to recovery room in good condition. There were no complications. SE/MODL Voice ID: [id number] Report ID: [id number]
--- NOTE | 2018-06-28 18:23 | P.PN ---
Subjective Date of Service: 06/28/18 Primary Care Provider: Dr. estes Chief Complaint: Left Hip Pain Subjective: Improving Patient seen and examined at bedside. No family at bedside. Chart reviewed and case discussed with nursing staff. Ports improved pain after surgery Review of Systems 10-point ROS is otherwise unremarkable Physical Examination - Vital Signs Temperature: 97.4 F Blood Pressure: 148/65 Pulse: 74 Respirations: 18 Pulse Ox (%): 99 - Physical Exam General: Alert, In no apparent distress HEENT: Atraumatic, PERRLA, EOMI Neck: Supple, JVD not distended Respiratory: Clear to auscultation bilaterally, Normal air movement Cardiovascular: Regular rate/rhythm, Normal S1 S2 Gastrointestinal: Normal bowel sounds, No tenderness Musculoskeletal: No tenderness Integumentary: No rashes Neurological: Normal speech, Normal tone, Normal affect Lymphatics: No axilla or inguinal lymphadenopathy - Studies Laboratory Data (last 24 hrs) 06/28/18 05:25: Sodium 135 L, Potassium 4.9, BUN 28 H, Creatinine 5.47 H* D, Glucose 126 H, Total Bilirubin 0.5, AST 18, ALT 14, Alkaline Phosphatase 195 H 06/28/18 05:25: WBC 5.3 D, Hgb 14.2, Hct 43.8, Plt Count 204 Assessment And Plan - Current Problems (Diagnosis) (1) Closed left ischial fracture Onset Date: 06/27/18 Current Visit: Yes Status: Acute Qualifiers: Encounter type: initial encounter Fracture morphology: unspecified fracture morphology Fracture alignment: nondisplaced Qualified Code(s): S32.602A - Unspecified fracture of left ischium, initial encounter for closed fracture (2) Type 1 diabetes mellitus on insulin therapy Onset Date: 06/27/18 Current Visit: Yes Status: Chronic (3) Hypothyroidism Onset Date: 06/27/18 Current Visit: Yes Status: Chronic Qualifiers: Hypothyroidism type: unspecified (4) ESRD (end stage renal disease) on dialysis Onset Date: 06/17/17 Current Visit: No Status: Chronic (5) HTN (hypertension) Onset Date: 06/17/17 Current Visit: No Status: Chronic Qualifiers: Hypertension type: essential hypertension (6) COPD (chronic obstructive pulmonary disease) Onset Date: 06/17/17 Current Visit: No Status: Chronic Qualifiers: COPD type: unspecified COPD Qualified Code(s): J44.9 - Chronic obstructive pulmonary disease, unspecified - Plan This is a 63-year-old female with: Closed left ischial fracture (Acute) S32.602A Type 1 diabetes mellitus on insulin therapy (Acute) E10.9 Hypothyroidism (Chronic) E03.9 ESRD (end stage renal disease) on dialysis (Chronic 06/17/17) N18.6, Z99.2 HTN (hypertension) (Chronic 06/17/17) I10 COPD (chronic obstructive pulmonary disease) (Chronic 06/17/17) J44.9 History of cardiac murmur, patient unsure further details. Patient's retail representative is Dr. Acevedo Patient admitted from Dr. Santos' office for medical clearance for hip surgery. Patient is medically clear for surgery. She is status post hip surgery, postop day number 0 Patient's risk factors include type 1 diabetes with insulin pump, ESRD on hemodialysis, cardiac disease history Cardiology consulted for cardiac clearance, patient cleared by cardiology. Recommendations appreciated Nephrology consulted for ESRD, dialysis patient. Recommendations appreciated Will continue Accu-Cheks, sliding scale insulin. Patient currently on the pump for insulin. Home medications restarted Hold anticoagulation at this time. DVT prophylaxis: Hold GI prophylaxis: None Diet: Heart healthy, was changed to NPO Disposition: Pending symptomatic improvement. Will continue on with physical therapy. Start discharge planning
[2018-06-28] MEDS: ATORVASTATIN 10 MG TAB PO SCH (21:15)
[2018-06-28] MEDS: ISOSORBIDE MONO SR 60 MG TAB PO SCH (21:16)
[2018-06-28] MEDS: DOXAZOSIN 2 MG TAB PO SCH (21:18)
[2018-06-29] MEDS: CLINDAMYCIN INJ 600 MG in NA CHLORIDE 0.9% 50 ML IV SCH ×3 (02:40→16:01)
[2018-06-29] MEDS: PANTOPRAZOLE 40MG TABLET PO SCH ×2 (05:46→16:01)
[2018-06-29] MEDS: LEVOTHYROXINE SOD 0.075 MG TAB PO SCH (05:46)
[2018-06-29] MEDS: INSULIN -REGULAR HUMAN 50 UNIT/0.5 ML ML SQ SCH ×4 (07:30→20:19)
[2018-06-29] MEDS: NIFEDIPINE XL 90 MG TABLET PO SCH ×2 (09:50→20:17)
[2018-06-29] MEDS: HYDRALAZINE HCL 25 MG TABLET PO SCH ×2 (09:51→20:18)
[2018-06-29] MEDS: CARVEDILOL 25 MG TAB PO SCH ×2 (09:51→20:19)
[2018-06-29] MEDS: LIOTHYRONINE SOD 5 MCG TAB PO SCH ×2 (09:51→20:18)
[2018-06-29] MEDS: LOSARTAN POTASSIUM 50 MG TABLET PO SCH ×2 (09:51→20:18)
[2018-06-29] MEDS: FERROUS SULFATE 325 MG TAB PO SCH (09:52)
--- NOTE | 2018-06-29 11:18 | P.PN ---
Subjective Date of Service: 06/29/18 Primary Care Provider: Dr. estes Chief Complaint: Left Hip Pain Subjective: No C/O voiced, Improving Patient seen and examined at bedside. No family at bedside. Chart reviewed and case discussed with nursing staff. Ports improved pain after surgery Review of Systems 10-point ROS is otherwise unremarkable Physical Examination - Vital Signs Temperature: 97.1 F Blood Pressure: 144/66 Pulse: 72 Respirations: 18 Pulse Ox (%): 98 - Physical Exam General: Alert, In no apparent distress, Oriented x3 HEENT: Atraumatic, PERRLA, EOMI Neck: Supple, JVD not distended Respiratory: Clear to auscultation bilaterally, Normal air movement Cardiovascular: Regular rate/rhythm, Normal S1 S2 Gastrointestinal: Normal bowel sounds, No tenderness Musculoskeletal: No tenderness Integumentary: No rashes Neurological: Normal speech, Normal tone, Normal affect Lymphatics: No axilla or inguinal lymphadenopathy Assessment And Plan - Current Problems (Diagnosis) (1) Closed left ischial fracture Onset Date: 06/27/18 Current Visit: Yes Status: Acute Qualifiers: Encounter type: initial encounter Fracture morphology: unspecified fracture morphology Fracture alignment: nondisplaced Qualified Code(s): S32.602A - Unspecified fracture of left ischium, initial encounter for closed fracture (2) Type 1 diabetes mellitus on insulin therapy Onset Date: 06/27/18 Current Visit: Yes Status: Chronic (3) Hypothyroidism Onset Date: 06/27/18 Current Visit: Yes Status: Chronic Qualifiers: Hypothyroidism type: unspecified (4) ESRD (end stage renal disease) on dialysis Onset Date: 06/17/17 Current Visit: No Status: Chronic (5) HTN (hypertension) Onset Date: 06/17/17 Current Visit: No Status: Chronic Qualifiers: Hypertension type: essential hypertension (6) COPD (chronic obstructive pulmonary disease) Onset Date: 06/17/17 Current Visit: No Status: Chronic Qualifiers: COPD type: unspecified COPD Qualified Code(s): J44.9 - Chronic obstructive pulmonary disease, unspecified - Plan This is a 63-year-old female with: Closed left ischial fracture (Acute) S32.602A Type 1 diabetes mellitus on insulin therapy (Acute) E10.9 Hypothyroidism (Chronic) E03.9 ESRD (end stage renal disease) on dialysis (Chronic 06/17/17) N18.6, Z99.2 HTN (hypertension) (Chronic 06/17/17) I10 COPD (chronic obstructive pulmonary disease) (Chronic 06/17/17) J44.9 History of cardiac murmur, patient unsure further details. Patient's multi skilled operator is Dr. Acevedo Patient admitted from Dr. Santos' office for medical clearance for hip surgery. Patient is medically clear for surgery. She is status post hip surgery, postop day number 1 Patient's risk factors include type 1 diabetes with insulin pump, ESRD on hemodialysis, cardiac disease history Cardiology consulted for cardiac clearance, patient cleared by cardiology. Recommendations appreciated Nephrology consulted for ESRD, dialysis patient. Recommendations appreciated Will continue Accu-Cheks, sliding scale insulin. Patient currently on the pump for insulin. Home medications restarted Hold anticoagulation at this time. DVT prophylaxis: Lovenox GI prophylaxis: None Diet: Heart healthy/diabetic Disposition: Pending symptomatic improvement. Will continue on with physical therapy. Start discharge planning Time Spent Managing PTS Care (In Minutes): 35
[2018-06-29] MEDS: ISOSORBIDE MONO SR 60 MG TAB PO SCH (20:18)
[2018-06-29] MEDS: DOXAZOSIN 2 MG TAB PO SCH (20:18)
[2018-06-29] MEDS: ATORVASTATIN 10 MG TAB PO SCH (20:19)
--- NOTE | 2018-06-30 00:22 | PN ---
Date of Progress Note: 06/28/2018 Ms. Hightower was cleared for surgery yesterday on her hip. She really never had any cardiac issues. Overnight she had no complication postoperatively. She remained in sinus rhythm, had no chest pain, is resting comfortably. I will sign off her case. I will be available for questions if the need jere ses. LOULOU/LANRE Voice ID: [id number] Report ID: [id number]
[2018-06-30] MEDS: LEVOTHYROXINE SOD 0.075 MG TAB PO SCH (05:25)
[2018-06-30] MEDS: PANTOPRAZOLE 40MG TABLET PO SCH ×2 (05:25→16:33)
[2018-06-30 06:10] LABS: Absolute Lymphocytes (CBC) 0.9 K/uL (0.7-4.9); Absolute Monocytes 0.6 K/uL (0.1-1.3); Absolute Neutrophil 4.5 K/uL (1.8-8.0); Basophils % 0.5 % (0-1.3); Eosinophils % 2.1 % (0-4.4); Hematocrit 31.1 % (36.0-45.0); Lymphocytes % 14.2 % (15.3-44.8); MPV 8.6 fL (7.6-11.3); Monocytes % 10.3 % (3.3-12.3); RBC Red Blood Cell Count 3.41 M/uL (3.86-4.86)
[2018-06-30 06:32] LABS: Potassium 5.6 mmol/L (3.5-5.1)
[2018-06-30] MEDS: INSULIN -REGULAR HUMAN 50 UNIT/0.5 ML ML SQ SCH ×4 (07:30→20:50)
[2018-06-30] MEDS: NIFEDIPINE XL 90 MG TABLET PO SCH ×2 (09:53→20:48)
[2018-06-30] MEDS: HYDRALAZINE HCL 25 MG TABLET PO SCH ×2 (09:54→20:49)
[2018-06-30] MEDS: CARVEDILOL 25 MG TAB PO SCH ×2 (09:54→20:49)
[2018-06-30] MEDS: FERROUS SULFATE 325 MG TAB PO SCH (09:55)
[2018-06-30] MEDS: LOSARTAN POTASSIUM 50 MG TABLET PO SCH ×2 (09:55→20:49)
[2018-06-30] MEDS: LIOTHYRONINE SOD 5 MCG TAB PO SCH ×2 (09:55→20:48)
--- NOTE | 2018-06-30 11:24 | P.PN ---
Date of Service: 06/30/18 Vital Signs Temp Pulse Resp BP Pulse Ox 97.7 F 71 20 140/64 95 06/30/18 08:00 06/30/18 09:54 06/30/18 08:00 06/30/18 09:54 06/30/18 08:00 Medications Acetaminophen (Tylenol -Tablet) 650 mg PO Q4H PRN PRN Reason: [id number] Stop: 07/27/18 14:03 Last Admin: 06/27/18 14:18 Dose: 650 mg Hydrocodone Bitart/Acetaminophen (Mershon 7.5/325 Mg) 1 tab PO Q4H PRN PRN Reason: PAIN Stop: 07/26/18 16:35 Last Admin: 06/27/18 23:18 Dose: 1 tab Atorvastatin Calcium (Lipitor) 10 mg PO BEDTIME WALTER Stop: 07/26/18 21:01 Last Admin: 06/29/18 20:19 Dose: 10 mg Carvedilol (Coreg) 25 mg PO BID WALTER Stop: 07/26/18 21:01 Last Admin: 06/30/18 09:54 Dose: 25 mg Dextrose (Dextrose 50% Syringe) 12.5 gm IV PRN PRN; Protocol PRN Reason: HYPOGLYCEMIA Stop: 07/26/18 16:36 Doxazosin Mesylate (Cardura) 1 mg PO BEDTIME WALTER Stop: 07/27/18 21:01 Last Admin: 06/29/18 20:18 Dose: 1 mg Epoetin Edmond (Procrit) 10,000 unit IV EVERY HD [facility] Stop: 07/26/18 21:01 Ferrous Sulfate (Feosol) 650 mg PO DAILY WALTER Stop: 07/27/18 09:01 Last Admin: 06/30/18 09:55 Dose: 650 mg Glucagon (Glucagen) 1 mg IM 1X PRN; Protocol PRN Reason: HYPOGLYCEMIA Stop: 07/26/18 16:36 Heparin Sodium (Porcine) (Heparin 1,000 Units/Ml) 6,000 unit IJ EVERY HD PRN PRN Reason: FLUSH AFTER EACH USE Stop: 07/26/18 21:01 Hydralazine HCl (Apresoline) 100 mg PO BID WALTER Stop: 07/26/18 21:01 Last Admin: 06/30/18 09:54 Dose: 100 mg Hydromorphone HCl (Dilaudid) 1 mg IV Q4H PRN PRN Reason: PAIN MODERATE TO SEVERE Stop: 07/27/18 01:52 Last Admin: 06/28/18 13:01 Dose: 1 mg Albumin Human (Albumin 25%) 50 mls @ 100 mls/hr IV EVERY HD [facility] Stop: 07/26/18 21:01 Insulin Human Regular (Novolin -R) 0 unit SQ ACHS [facility]; Protocol Stop: 07/28/18 16:31 Last Admin: 06/30/18 07:30 Dose: Not Given Isosorbide Mononitrate (Imdur) 120 mg PO BEDTIME WALTER Stop: 07/26/18 21:01 Last Admin: 06/29/18 20:18 Dose: 120 mg Levothyroxine Sodium (Synthroid) 0.15 mg PO [id number] [facility]TER Stop: 07/27/18 06:01 Last Admin: 06/30/18 05:25 Dose: 0.15 mg Liothyronine Sodium (Cytomel) 5 mcg PO BID [facility] Stop: 07/26/18 21:01 Last Admin: 06/30/18 09:55 Dose: 5 mcg Losartan Potassium (Cozaar) 50 mg PO BID [facility] Stop: 07/26/18 21:01 Last Admin: 06/30/18 09:55 Dose: 50 mg Mannitol (Mannitol 12.5 Gm/50 Ml Vial) 12.5 gm IV EVERY HD PRN PRN Reason: BP support at hemodialysis Stop: 07/26/18 21:01 Nifedipine (Procardia Xl) 90 mg PO BID [facility] Stop: 07/26/18 21:01 Last Admin: 06/30/18 09:53 Dose: 90 mg Pantoprazole Sodium (Protonix Tab) 40 mg PO 0630,1630 [facility] Stop: 07/27/18 06:31 Last Admin: 06/30/18 05:25 Dose: 40 mg Sodium Chloride (Normal Saline Flush) 10 ml IV BID [facility] Stop: 07/26/18 21:01 Last Admin: 06/30/18 09:56 Dose: 10 ml Lab Results (last 24 hrs) 06/30/18 09:52: POC Glucose 96 06/30/18 07:55: POC Glucose 49 L* 06/30/18 05:43: Sodium 134 L, Potassium 5.6 H*, Chloride 99, Carbon Dioxide 25, BUN 57 H D, Creatinine 7.89 H* D, Estimated GFR 5 L, Glucose 86, Calcium 7.7 L D 06/30/18 05:43: WBC 6.2 D, RBC 3.41 L D, Hgb 10.1 L D, Hct 31.1 L D, MCV 91.0, MCH 29.5, MCHC 32.4, RDW 17.3 H, Plt Count 208, MPV 8.6, Neutrophils % 72.9, Lymphocytes % 14.2 L, Monocytes % 10.3, Eosinophils % 2.1, Basophils % 0.5, Absolute Neutrophils 4.5, Absolute Lymphocytes 0.9, Absolute Monocytes 0.6, Absolute Eosinophils 0.1, Absolute Basophils 0.0 06/29/18 19:32: POC Glucose 103 06/29/18 16:50: POC Glucose 113 06/29/18 11:59: POC Glucose 141 H Assessment/ Plan: Nephrology CPS stable without CP or SOB. No acute events overnight. Feeling better. Surgery over the weekend went well; pain is better. Vitals, medications, blood work and imaging reviewed in the chart. General: Alert, Oriented x3, Cooperative HEENT: Atraumatic, Mucous membr. moist/pink Neck: Supple Respiratory: Clear to auscultation bilaterally Cardiovascular: No rubs, Edema Gastrointestinal: Soft and benign, Non-distended Musculoskeletal: No clubbing, No contractures Integumentary: No rashes, No cyanosis Neurological: Normal speech Laboratory Data (last 24 hrs) 06/26/18 12:22: Sodium 136, Potassium 6.0 H*, BUN 39 H, Creatinine 6.40 H*, Glucose 135 H, Total Bilirubin 0.5, AST 15, ALT 11 L, Alkaline Phosphatase 192 H 06/26/18 12:22: WBC 5.2, Hgb 13.3, Hct 42.0, Plt Count 200 06/26/18 12:22: Troponin I 0.03 Imagings Data: EXAM DESCRIPTION: RAD - Pelvis - 06/20/2018 7:08 am CLINICAL HISTORY: Left hip pain status post fall FINDINGS: A nondisplaced fracture involves the left ischium. This may be subacute and should be correlated clinically. Bones are osteoporotic No additional fracture or dislocation seen. If patient has clinical symptoms to suggest an occult femoral fracture MRI would be recommended Conclusions/Impression: A/ ESRD on HD. Hyperkalemia. HTN with CKD/ CHF. Diastolic CHF, chronic. DM I with CKD. Anemia in CKD. TAWNYA/ Secondary HyperPTH. Left hip fx with acute pain. P/ Continue current POC and Medications. Acute HD as ordered. Kayexalte X2 today. Follow up with Dr. Katz. PT as tolerated. No NSAIDs. AM labs. Daily weight.
[2018-06-30] MEDS: SOD POLYSTYREN SUL 15 GM/60 ML UCUP PO SCH ×2 (12:00→20:00)
--- NOTE | 2018-06-30 13:25 | P.PN ---
Subjective Date of Service: 06/30/18 Primary Care Provider: Dr. estes Chief Complaint: Left Hip Pain Subjective: No C/O voiced, Improving Patient seen and examined at bedside. No family at bedside. Chart reviewed and case discussed with nursing staff. Reports no significant pain this morning. Review of Systems 10-point ROS is otherwise unremarkable Physical Examination - Vital Signs Temperature: 97.7 F Blood Pressure: 140/64 Pulse: 71 Respirations: 20 Pulse Ox (%): 95 - Physical Exam General: Alert, In no apparent distress, Oriented x3 HEENT: Atraumatic, PERRLA, EOMI Neck: Supple, JVD not distended Respiratory: Clear to auscultation bilaterally, Normal air movement Cardiovascular: Regular rate/rhythm, Normal S1 S2 Gastrointestinal: Normal bowel sounds, No tenderness Musculoskeletal: No tenderness Integumentary: No rashes Neurological: Normal speech, Normal tone, Normal affect Lymphatics: No axilla or inguinal lymphadenopathy - Studies Laboratory Data (last 24 hrs) 06/30/18 05:43: Sodium 134 L, Potassium 5.6 H*, BUN 57 H D, Creatinine 7.89 H* D , Glucose 86 06/30/18 05:43: WBC 6.2 D, Hgb 10.1 L D, Hct 31.1 L D, Plt Count 208 Assessment And Plan - Current Problems (Diagnosis) (1) Closed left ischial fracture Onset Date: 06/27/18 Current Visit: Yes Status: Acute Qualifiers: Encounter type: initial encounter Fracture morphology: unspecified fracture morphology Fracture alignment: nondisplaced Qualified Code(s): S32.602A - Unspecified fracture of left ischium, initial encounter for closed fracture (2) Type 1 diabetes mellitus on insulin therapy Onset Date: 06/27/18 Current Visit: Yes Status: Chronic (3) Hypothyroidism Onset Date: 06/27/18 Current Visit: Yes Status: Chronic Qualifiers: Hypothyroidism type: unspecified (4) ESRD (end stage renal disease) on dialysis Onset Date: 06/17/17 Current Visit: No Status: Chronic (5) HTN (hypertension) Onset Date: 06/17/17 Current Visit: No Status: Chronic Qualifiers: Hypertension type: essential hypertension (6) COPD (chronic obstructive pulmonary disease) Onset Date: 06/17/17 Current Visit: No Status: Chronic Qualifiers: COPD type: unspecified COPD Qualified Code(s): J44.9 - Chronic obstructive pulmonary disease, unspecified - Plan This is a 63-year-old female with: Closed left ischial fracture (Acute) S32.602A Patient admitted from Dr. Santos' office for medical clearance for hip surgery. Patient is medically clear for surgery. She is status post hip surgery, postop day number 2 Continue physical therapy. pending eval Patient's risk factors include type 1 diabetes with insulin pump, ESRD on hemodialysis, cardiac disease history Cardiology consulted for cardiac clearance, patient cleared by cardiology. Recommendations appreciated Type 1 diabetes mellitus on insulin therapy (Acute) E10.9 Will continue Accu-Cheks, sliding scale insulin. Patient currently on personal pump for insulin. Hypothyroidism (Chronic) E03.9 Home medications restarted ESRD (end stage renal disease) on dialysis (Chronic 06/17/17) N18.6, Z99.2 Dr. Doyle's patient, consulted. ESRD, dialysis M,W,f; Recommendations appreciated pending dialysis today. HTN (hypertension) (Chronic 06/17/17) I10 Stable, continue home medications. COPD (chronic obstructive pulmonary disease) (Chronic 06/17/17) J44.9 Stable, continue breathing treatment as needed History of cardiac murmur, patient unsure further details. Patient's nut sheller is Dr. Acevedo DVT prophylaxis: Lovenox GI prophylaxis: None Diet: Heart healthy/diabetic Disposition: Pending symptomatic improvement. Will continue on with physical therapy. Start discharge planning (pt prefers home with home PT) Time Spent Managing PTS Care (In Minutes): 35
[2018-06-30] MEDS: HYDROCODONE/APAP 7.5/325 MG TAB PO PRN (15:13)
[2018-06-30] MEDS: ISOSORBIDE MONO SR 60 MG TAB PO SCH (20:48)
[2018-06-30] MEDS: ATORVASTATIN 10 MG TAB PO SCH (20:49)
[2018-06-30] MEDS: DOXAZOSIN 2 MG TAB PO SCH (20:49)
--- NOTE | 2018-06-30 22:35 | PN ---
Date of Progress Note: 06/30/2018 Subjective: The patient is seen today. She is sitting in a chair at her bedside and appears to be q uite comfortable. Her dressing is clean, dry, and intact. She is neurovascularly intact. She says her pain is much relieved. Her dialysis is being carried out by Nephrology. Also, she has been cove red by the hospitalist. Assessment And Plan: She apparently is doing well 2 days after intramedullary avni fixation. It appe ars that her pain is better and has now been stabilized. She will be touchdown weightbearing on that side. Also, kellie to be removed 2 weeks after surgery. Change the dressing early only as needed. Anticoagulation is a consideration, but we will allow Nephrology and Medicine to pursue that. As f ar as antibiotics, I do not think she needs any more antibiotic coverage prophylactically for hip. O therwise, all of the patient's questions have been answered. /LANRE Voice ID: [id number] Report ID: [id number]
[2018-07-01] MEDS: LEVOTHYROXINE SOD 0.075 MG TAB PO SCH (05:54)
[2018-07-01] MEDS: PANTOPRAZOLE 40MG TABLET PO SCH (05:54)
[2018-07-01 06:27] LABS: Absolute Lymphocytes (CBC) 0.7 K/uL (0.7-4.9); Absolute Monocytes 0.6 K/uL (0.1-1.3); Absolute Neutrophil 4.1 K/uL (1.8-8.0); Basophils % 0.9 % (0-1.3); Eosinophils % 1.3 % (0-4.4); Hematocrit 30.6 % (36.0-45.0); Lymphocytes % 13.2 % (15.3-44.8); MPV 8.1 fL (7.6-11.3); Monocytes % 10.4 % (3.3-12.3); RBC Red Blood Cell Count 3.32 M/uL (3.86-4.86)
[2018-07-01 06:33] LABS: Potassium 4.5 mmol/L (3.5-5.1)
[2018-07-01] MEDS: INSULIN -REGULAR HUMAN 50 UNIT/0.5 ML ML SQ SCH ×2 (07:30→11:30)
[2018-07-01] MEDS: HYDRALAZINE HCL 25 MG TABLET PO SCH (08:28)
[2018-07-01] MEDS: LIOTHYRONINE SOD 5 MCG TAB PO SCH (08:28)
[2018-07-01] MEDS: LOSARTAN POTASSIUM 50 MG TABLET PO SCH (08:28)
[2018-07-01] MEDS: CARVEDILOL 25 MG TAB PO SCH (08:28)
[2018-07-01] MEDS: FERROUS SULFATE 325 MG TAB PO SCH (08:28)
[2018-07-01] MEDS: NIFEDIPINE XL 90 MG TABLET PO SCH (08:29)
--- NOTE | 2018-07-01 21:17 | P.PN ---
Date of Service: 07/01/18 Vital Signs Temp Pulse Resp BP Pulse Ox 97.4 F 76 18 140/66 94 07/01/18 12:00 07/01/18 12:00 07/01/18 12:00 07/01/18 12:00 07/01/18 12:00 Lab Results (last 24 hrs) 07/01/18 11:27: POC Glucose 184 H 07/01/18 08:26: POC Glucose 132 H 07/01/18 07:25: POC Glucose 52 L 07/01/18 05:55: Sodium 135 L, Potassium 4.5, Chloride 102, Carbon Dioxide 24, BUN 32 H D, Creatinine 5.22 H* D, Estimated GFR 8 L, Glucose 75, Calcium 8.0 L 07/01/18 05:53: WBC 5.5, RBC 3.32 L, Hgb 9.9 L, Hct 30.6 L, MCV 92.0, MCH 29.8, MCHC 32.4, RDW 17.6 H, Plt Count 214, MPV 8.1, Neutrophils % 74.2 H, Lymphocytes % 13.2 L, Monocytes % 10.4, Eosinophils % 1.3, Basophils % 0.9, Absolute Neutrophils 4.1, Absolute Lymphocytes 0.7, Absolute Monocytes 0.6, Absolute Eosinophils 0.1, Absolute Basophils 0.0 Assessment/ Plan: Nephrology CPS stable without CP or SOB. No acute events overnight. Doing well. Surgery over the weekend went well. Vitals, medications, blood work and imaging reviewed in the chart. General: Alert, Oriented x3, Cooperative HEENT: Atraumatic, Mucous membr. moist/pink Neck: Supple Respiratory: Clear to auscultation bilaterally Cardiovascular: No rubs, Edema Gastrointestinal: Soft and benign, Non-distended Musculoskeletal: No clubbing, No contractures Integumentary: No rashes, No cyanosis Neurological: Normal speech Laboratory Data (last 24 hrs) 06/26/18 12:22: Sodium 136, Potassium 6.0 H*, BUN 39 H, Creatinine 6.40 H*, Glucose 135 H, Total Bilirubin 0.5, AST 15, ALT 11 L, Alkaline Phosphatase 192 H 06/26/18 12:22: WBC 5.2, Hgb 13.3, Hct 42.0, Plt Count 200 01/17/19 12:22: Troponin I 0.03 Imagings Data: EXAM DESCRIPTION: RAD - Pelvis - 06/20/2018 7:08 am CLINICAL HISTORY: Left hip pain status post fall FINDINGS: A nondisplaced fracture involves the left ischium. This may be subacute and should be correlated clinically. Bones are osteoporotic No additional fracture or dislocation seen. If patient has clinical symptoms to suggest an occult femoral fracture MRI would be recommended Conclusions/Impression: A/ ESRD on HD. Hyperkalemia. HTN with CKD/ CHF. Diastolic CHF, chronic. DM I with CKD. Anemia in CKD. TAWNYA/ Secondary HyperPTH. Left hip fx with acute pain. P/ Continue current POC and Medications. HD TIW. Follow up with Dr. Katz. PT as tolerated. No NSAIDs. AM labs. Daily weight.
--- NOTE | 2018-07-02 01:05 | DS ---
Date of Discharge: 07/01/2018 Consultants: 1.Dr. Katz with Orthopedics. 2.Dr. Olea with Cardiology. 3.Dr. Doyle with Nephrology. Procedures: On 06/28/2018, left hip nondisplaced intertrochanteric fracture, status post left hip in tramedullary avni fixation. Admitting Diagnoses: 1.Closed left ischial fracture, initial encounter. 2.Type 1 diabetes mellitus, on insulin pump. 3.Hypothyroidism. 4.End-stage renal disease, on hemodialysis. 5.Essential hypertension. 6.Chronic obstructive pulmonary disease, chronic bronchitis. Discharge Diagnoses: 1.Closed left ischial fracture, status post open reduction and internal fixation. Continue Eliquis for deep venous thrombosis prophylaxis. 2.Type 1 diabetes mellitus, on insulin therapy, with hyperglycemia. 3.Hypothyroidism. 4.End-stage renal disease, on hemodialysis. 5.Essential hypertension. 6.Chronic obstructive pulmonary disease, chronic bronchitis. 7.History of cardiac murmur. Hospital Course: The patient is a 63-year-old female with past medical history of type 1 diabetes, o n insulin pump; hypothyroidism; end-stage renal disease, on dialysis; hypertension; and COPD; comes i n for left-sided hip pain after a fall. The patient was admitted directly from Dr. Katz's offic e after MRI confirmed fracture of the left hip. The patient underwent procedure as mentioned above. She was seen by Dr. Olea for cardiac clearance and was cleared for surgery. The patient tolerate d the procedure well. She was started on pain medications. The patient's dialysis was continued whi le she was in the hospital. Dr. Doyle, her retarder operator, saw the patient. Did have some electroly te abnormalities, which were corrected. Overall, the patient did well over the course of the [facility] stay. She was able to work with Physical Therapy, and she did not wish to have rehab. She wished to have home PT. She understands the risks associated with declining rehab and instead opting for [facility], including falls, further fractures, bleeding, or even . The patient was then set up with home health with PT and was discharged in stable condition. Activity: Fall precautions. Medications: As per medication reconciliation list. Followup: Follow up with primary care physician in 2 to 3 days. Follow up with Orthopedic surgeon, Dr. Katz, in 2 weeks. Follow up with retarder operator, Dr. Doyle, in 2 weeks. Return to ER for w orsening condition. Follow with primary engineering teacher, Dr. Rubio, in 2 weeks. Diet: Renal. Activity: No driving or operating heavy machinery while on narcotics. Continue with fall precaution s. Physical Examination: General: Awake, alert, oriented x3. No acute distress. CV: S1, S2. Peripheral pulses are present. Respiratory: Moving air well bilaterally. Gastrointestinal: Abdomen is soft, nontender, nondistended. Positive bowel sounds. Extremities: No clubbing, cyanosis, or edema. Neurologic: Nonfocal. Skin: Insulin pump in place. Total time discharging the patient was 37 minutes. /LANRE Voice ID: [id number] Report ID: [id number]
== END 2018-07-01 15:22 | disposition home health service (06) | DRG 480 ==
LOC: 2ND 11:50
PROVIDERS: ADMIT Family Medicine; ATTEND Family Medicine
PROC: 5A1D70Z Performance of Urinary Filtration, Intermittent, Less than 6 Hours Per Day (ICD-10-PCS; 2018-06-27)
PROC: 0QH736Z Insertion of Intramedullary Internal Fixation Device into Left Upper Femur, Percutaneous Approach (ICD-10-PCS; principal; 2018-06-28 09:00)
PROC: 5A1D70Z Performance of Urinary Filtration, Intermittent, Less than 6 Hours Per Day (ICD-10-PCS; 2018-06-30)
DX: S32.602A Unspecified fracture of left ischium, initial encounter for closed fracture (principal); N18.6 End stage renal disease; I13.2 Hypertensive heart and chronic kidney disease with heart failure and with stage 5 chronic kidney disease, or end stage renal disease; I50.32 Chronic diastolic (congestive) heart failure; N25.81 Secondary hyperparathyroidism of renal origin; W19.XXXA Unspecified fall, initial encounter; Y93.9 Activity, unspecified; Y92.9 Unspecified place or not applicable; Z96.41 Presence of insulin pump (external) (internal); E03.9 Hypothyroidism, unspecified; E10.22 Type 1 diabetes mellitus with diabetic chronic kidney disease; Z99.2 Dependence on renal dialysis; J44.9 Chronic obstructive pulmonary disease, unspecified; Z88.0 Allergy status to penicillin; Z87.891 Personal history of nicotine dependence; E87.5 Hyperkalemia; D63.1 Anemia in chronic kidney disease; N25.0 Renal osteodystrophy
CPT/HCPCS: 36415; 73530; 80048; 80053; 82962; 83735; 84100; 84484; 85025; 90935; 94760; 97110; 97163; 97530; 97542; J0885; J1170; J2250; J2405; J3010; Q4081

== ENCOUNTER 2018-12-25 22:50 | Emergency (ER) | payer OTHER ==
--- OUTSIDE RECORDS SUMMARY | 2018-12-25 22:52 | XMS REPORT | Clinical Summary ---
:1955 Author Organization [facility] Address [address] [place] [address] Care Team Providers Name Role Phone Nader [...] Encounters Date Type Specialty Care Team Description 07/09/2018 Lab Lab Jess Alonso MD 06/25/2018 Transcribe Orders Radiology José Katz Left hip pain ( Primary MD Silvestre Dx) 04/22/2018 Lab Lab Craig Silva MD after 12/24/2017 Family History Medical History Relation Name Comments [...] DIABETIC FOOT EXAM 02/15/1965 URINE MICROALBUMIN 02/15/1964 BREAST CANCER SCREENING 02/15/2004 COLONOSCOPY SCREENING 02/15/2004 SHINGLES VACCINES (#1) 02/15/2004 INFLUENZA VACCINE 01/08/2019 Procedures Procedure Name Priority Date/Time Associated Diagnosis Comments SURGICAL PATHOLOGY Routine 07/09/2018 6:23 PM Results for this REQUEST NET LEAD DEVELOPER procedure are in the results section. GRAM STAIN Routine 07/09/2018 1:10 PM Results for this NET LEAD DEVELOPER procedure are in the results section. FUNGUS SMEAR Routine 07/09/2018 1:10 PM Results for this NET LEAD DEVELOPER procedure are in the results section. EYE CULTURE, Routine 07/09/2018 1:10 PM Results for this ANAEROBIC NET LEAD DEVELOPER procedure are in the results section. FUNGUS CULTURE Routine 07/09/2018 1:10 PM Results for this NET LEAD DEVELOPER procedure are in the results section. ACRIDINE ORANGE Routine 07/09/2018 1:10 PM Results for this STAIN NET LEAD DEVELOPER procedure are in the results section. EYE CULTURE Routine 07/09/2018 1:10 PM Results for this NET LEAD DEVELOPER procedure are in the results section. AFB CULTURE Routine 07/09/2018 12:10 PM Results for this NET LEAD DEVELOPER procedure are in the results section. MRI LOWER EXTREMITY Routine 06/25/2018 2:00 PM Left hip pain Results for this JOINT WO CONTRAST NET LEAD DEVELOPER procedure are in LEFT the results section. FUNGUS SMEAR Routine 04/22/2018 6:00 PM Results for this NET LEAD DEVELOPER procedure are in the results section. GRAM STAIN Routine 04/22/2018 6:00 PM Results for this NET LEAD DEVELOPER procedure are in the results section. FUNGUS CULTURE Routine 04/22/2018 6:00 PM Results for this NET LEAD DEVELOPER procedure are in the results section. EYE CULTURE, Routine 04/22/2018 6:00 PM Results for this ANAEROBIC NET LEAD DEVELOPER procedure are in the results section. ACRIDINE ORANGE Routine 04/22/2018 6:00 PM Results for this STAIN NET LEAD DEVELOPER procedure are in the results section. EYE CULTURE Routine 04/22/2018 6:00 PM Results for this NET LEAD DEVELOPER procedure are in the results section. after 12/24/2017 Results Surgical pathology request (07/09/2018 6:23 PM NET LEAD DEVELOPER) [facility] DEPARTMENT OF PATHOLOGY AND GENOMIC MEDICINE Surgical pathology See link below [facility] DEPARTMENT OF report for PDF Lab PATHOLOGY AND Report GENOMIC MEDICINE Result status This is Final [facility] DEPARTMENT OF Report for PATHOLOGY AND [id number] GENOMIC MEDICINE Specimen Performing Organization Address City/State/Zipcode Phone Number [facility] DEPARTMENT OF PATHOLOGY AND [address] [place] [address] GENOMIC MEDICINE Fungus smear (07/09/2018 1:10 PM NET LEAD DEVELOPER)Only the most recent of2 resultswithin the time period is included. Fungus smear No fungi observed. [facility] Comment: HOSPITAL Specimen Information Specimen Source: Cornea Specimen Site: Right Eye Specimen Cornea Narrative Performed At No BCYE plates sent ordered Fungus smear. [facility] DEPARTMENT OF PATHOLOGY AND GENOMIC MEDICINE Performing Organization Address City/State/Zipcode Phone Number [facility] DEPARTMENT OF PATHOLOGY AND [address] [place] [phone] [place] [phone] Eye culture, anaerobic (07/09/2018 1:10 PM NET LEAD DEVELOPER)Only the most recent of2 resultswithin the time period is included. Eye culture Brucella blood agar: [facility] isolate, anaerobic No anaerobes isolated after 7 days. HOSPITAL Comment: Specimen Information Specimen Source: Cornea Specimen Site: Right Eye Specimen Cornea Narrative Performed At No BCYE plates sent ordered Fungus smear. [facility] DEPARTMENT OF PATHOLOGY AND GENOMIC MEDICINE Performing Organization Address City/[facility] Phone Number [facility] DEPARTMENT OF PATHOLOGY AND [address] [place] [address] Acridine orange stain (07/09/2018 1:10 PM NET LEAD DEVELOPER)Only the most recent of2 resultswithin the time period is included. Acridine orange No WBC's or organisms seen [facility] stain Comment: HOSPITAL Specimen Information Specimen Source: Cornea Specimen Site: Right Eye Specimen Cornea Narrative Performed At No BCYE plates sent ordered Fungus smear. [facility] DEPARTMENT OF PATHOLOGY AND GENOMIC MEDICINE Performing Organization Address City/[facility]/Zipcode Phone Number [facility] DEPARTMENT OF PATHOLOGY AND [address] [place] [phone] Eye culture (07/09/2018 1:10 PM NET LEAD DEVELOPER)Only the most recent of2 resultswithin the time period is included. Eye culture Blood and Chocolate agars and Thioglycollate broth: [facility] isolate No growth after 7 days. HOSPITAL Comment: Specimen Information Specimen Source: Cornea Specimen Site: Right Eye Specimen Cornea Narrative Performed At No BCYE plates sent ordered Fungus smear. [facility] DEPARTMENT OF PATHOLOGY AND GENOMIC MEDICINE Performing Organization Address City/State/Zipcode Phone Number [facility] DEPARTMENT OF PATHOLOGY AND [address] [place] [address] [place] [address] Gram stain (07/09/2018 1:10 PM NET LEAD DEVELOPER)Only the most recent of2 resultswithin the time period is included. Gram stain isolate Cancelled - Gram stain not performed since Acridine orange [facility] stain is negative. HOSPITAL Comment: Specimen Information Specimen Source: Cornea Specimen Site: Right Eye Specimen Cornea Narrative Performed At No BCYE plates sent ordered Fungus smear. [facility] DEPARTMENT OF PATHOLOGY AND GENOMIC MEDICINE Performing Organization Address City/[facility]/Zipcode Phone Number [facility] DEPARTMENT OF PATHOLOGY AND [address] [place] [phone] [place] [phone] Fungus culture (07/09/2018 1:10 PM NET LEAD DEVELOPER)Only the most recent of2 resultswithin the time period is included. Fungus culture No growth after 4 weeks of incubation. [facility] isolate Comment: HOSPITAL Specimen Information Specimen Source: Cornea Specimen Site: Right Eye Specimen Cornea Narrative Performed At No BCYE plates sent ordered Fungus smear. [facility] DEPARTMENT OF PATHOLOGY AND GENOMIC MEDICINE Performing Organization Address City/[facility] Centercode Phone Number [facility] DEPARTMENT OF PATHOLOGY AND [address] [place] [phone] [phone] AFB culture (07/09/2018 12:10 PM NET LEAD DEVELOPER) AFB culture No growth after 6 weeks of incubation. [facility] isolate Comment: HOSPITAL Specimen Information Specimen Source: Cornea Specimen Site: Right Eye Specimen Cornea Narrative Performed At No BCYE plates sent ordered Fungus smear. [facility] DEPARTMENT OF PATHOLOGY AND GENOMIC MEDICINE Performing Organization Address City/[facility]/Zipcode Phone Number [facility] DEPARTMENT OF PATHOLOGY AND [address] [place] [phone] [place] [phone] MRI Lower Extremity Joint Wo Contrast Left (06/25/2018 2:00 PM NET LEAD DEVELOPER) Specimen Narrative Performed At EXAMINATION:MRI LOWER EXTREMITY JOINT [...] Radiology Results Incoming - 06/25/2018 2:19 PM NET LEAD DEVELOPER EXAMINATION: MRI LOWER EXTREMITY JOINT WO CONTRAST [...] recent fall or injury. Performing Organization Address City/State/Zipcode Phone Number [facility] [address] [place] [address] after 12/24/2017 Insurance Payer Benefit Plan / Subscriber ID Effective Dates Phone Address Type Group MEDICARE MEDICARE PART A xxxxxxxxxx 2004-Present [place] Medicare AND B [id number] Pty [facility] MED xxxxxxxx 2016-Present Commercial SUPPLEMENT
--- OUTSIDE RECORDS SUMMARY | 2018-12-25 22:52 | XMS REPORT | Clinical Summary ---
:1955 Author Organization [facility] Address [address] [place] [address] Care Team Providers Name Role Phone Unavailable Primary Care Provider Unavailable Allergies Active Allergy Reactions Severity Noted Date Comments Penicillins Hives, Rash Low 01/07/2017 Medications Medication Sig Dispensed Refills Start End Date Status Date ascorbic acid, Take 1,000 mg by 0 Active vitamin C, (VITAMIN mouth daily. C) 1000 MG tablet atropine (ISOPTO) 1 1 drop 3 (three) 0 Active % ophthalmic times daily. solution b complex vitamins Take 1 tablet by 0 Active tablet mouth daily. biotin 1 mg Cap Take by mouth. 0 Active carvedilol (COREG) Take 25 mg by 0 Active 25 MG tablet mouth 2 (two) times daily with breakfast and dinner. cholecalciferol, Take 5,000 Units 0 Active vitamin D3, 5,000 by mouth daily. unit Tab clonidine HCl Take by mouth. 0 Active (CATAPRES ORAL) esomeprazole Take 40 mg by 0 Active (NEXIUM) 40 MG mouth daily. capsule hydrALAZINE Take 100 mg by 0 Active (APRESOLINE) 100 MG mouth 2 (two) tablet times daily. isosorbide Take 60 mg by 0 Active mononitrate (IMDUR) mouth daily. 60 MG 24 hr tablet levothyroxine Take 75 mcg by 0 Active (SYNTHROID, mouth Every LEVOTHROID) 75 MCG morning on an tablet empty stomach. liothyronine Take 5 mcg by 0 Active (CYTOMEL) 5 MCG mouth daily. tablet losartan (COZAAR) Take 50 mg by 0 Active 50 MG tablet mouth daily. loteprednol 1 drop 4 (four) 0 Active (LOTEMAX) 0.5 % times daily. ophthalmic suspension moxifloxacin 1 drop 3 (three) 0 Active (VIGAMOX) 0.5 % times daily. ophthalmic solution NIFEdipine (ADALAT Take 90 mg by 0 Active CC) 90 MG 24 hr mouth daily. tablet insulin aspart Inject 0 Active U-100 (NOVOLOG) 100 subcutaneously 3 unit/mL InPn (three) times daily with meals. omega Take by mouth. 0 Active 9-kpu-uir-fish oil (FISH OIL) 100-160-1,000 mg Cap pantoprazole Take 40 mg by 0 Active (PROTONIX) 40 MG mouth daily. tablet pravastatin Take 20 mg by 0 Active (PRAVACHOL) 20 MG mouth daily. tablet prednisoLONE 1 drop 4 (four) 0 Active acetate (PRED times daily. FORTE) 1 % ophthalmic suspension timolol (TIMOPTIC) 1 drop 2 (two) 0 Active 0.5 % ophthalmic times daily. solution tobramycin (TOBREX) 3 (three) times 0 Active 0.3 % ophthalmic daily. ointment hydrOXYzine Take 10 mg by 0 Active (ATARAX) 10 MG mouth 3 (three) tablet times daily as needed for Itching. apixaban (ELIQUIS) Take 2.5 mg by 0 Active 2.5 mg Tab tablet mouth 2 (two) times daily. ferrous sulfate 325 Take 325 mg by 0 Active (65 FE) MG tablet mouth daily with breakfast. multivitamin Take 1 capsule by 0 Active capsule mouth daily. traMADol (ULTRAM) Take 50 mg by 0 Active 50 mg tablet mouth every 6 (six) hours as needed for Pain. Missing or 40 mg/day. 0 Active Non-Formulary MedicationIndicatio ns: Esomeparzole megestrol (MEGACE) Take 40 mg by 0 07/08/19 Discontinued 40 MG tablet mouth daily. 19 metoclopramide HCl Take 10 mg by 0 07/08/19 Discontinued (REGLAN) 10 MG mouth 4 (four) 19 tablet times daily as needed for Nausea. prednisoLONE 5 mg Take by mouth. 0 07/08/19 Discontinued Tab 19 sevelamer (RENAGEL) Take 800 mg by 0 07/08/19 Discontinued 800 MG tablet mouth 3 (three) 19 times daily with meals. sirolimus Take 2 mg by mouth 0 07/08/19 Discontinued (RAPAMUNE) 1 MG daily. 19 tablet sodium bicarbonate Take 325 mg by 0 07/08/19 Discontinued 325 MG tablet mouth 4 (four) 19 times daily. valGANciclovir Take 450 mg by 0 07/08/19 Discontinued (VALCYTE) 450 mg mouth daily. 19 tablet Active Problems Not on file Encounters Date Type Specialty Care Team Description 07/09/2018 Surgery Craig Silva OCULA B., MD R AMNIOTIC MEMBRANE TRANSPLANT 07/09/2018 Anesthesia Event Yara Valdez MD 07/09/2018 Hospital Encounter Craig Silva MD 07/08/2018 Hospital Encounter Pre-Admission Testing after 12/24/2017 Social History Tobacco Use Types Packs/Day Years Used Date Never Smoker Smokeless Tobacco: Never Used Alcohol Use Drinks/Week oz/Week Comments No Alcohol Habits Answer Date Recorded How often do you have a drink containing alcohol? Never 07/08/2018 How many drinks containing alcohol do you have on a typical Not asked day when you are drinking? How often do you have six or more drinks on one occasion? Not asked Sex Assigned at Date Recorded Not on file Job Start Date Occupation Industry Not on file Not on file Not on file Travel History Travel Start Travel End No recent travel history available. Last Filed Vital Signs Vital Sign Reading Time Taken Blood Pressure 131/51 07/09/2018 2:05 PM [employer] Pulse 79 07/09/2018 2:05 PM [employer] Temperature 37.1 C (98.7 F) 07/09/2018 1:51 PM [employer] Respiratory Rate 15 07/09/2018 2:05 PM [employer] Oxygen Saturation 93% 07/09/2018 2:05 PM [employer] Inhaled Oxygen Concentration - - Weight 62.6 kg (138 lb) 07/08/2018 12:58 PM [employer] Height 170.2 cm (5' 7") 07/08/2018 12:58 PM [employer] Body Mass Index 21.61 07/08/2018 12:58 PM [employer] Plan of Treatment Not on file Implants Implanted Type Area Solar Energy System Installer Helper Device Shelf Model / Identifier Expiration Date Serial / Lot Tissue Memb Amniogrft 2.5x2.0 Ag-2520f - [id number] Right: BIO-TISSUE 01/01/2020 AG-[id number] / Implanted: Qty: 1 on 07/09/2018 by Craig Silva MD Eye [id number] / N/A Procedures Procedure Name Priority Date/Time Associated Diagnosis Comments SCRAPING,CORNEA 07/09/2018 1:00 PM [employer] Corneal ulcer, right Case Notes CASE RESCHEDULED FROM 06/25/18 TO 07/09/18 ADDED TO PROCEDURE W/ CANDY ON 07/08/18"CORNEA BIOPSY, CORNEA SCRAPPING"AT TIME OF CONFIRMING Acuvue Oasys bandage lens used (x1): BC 8.4; D +0.00; NAS 14.0; Lot # [id number]; EXP: 2022-09-08. BIOPSY,CORNEA 07/09/2018 1:00 PM [employer] Corneal ulcer, right Case Notes CASE RESCHEDULED FROM 06/25/18 TO 07/09/18 ADDED TO PROCEDURE W/ CANDY ON 07/08/18"CORNEA BIOPSY, CORNEA SCRAPPING"AT TIME OF CONFIRMING Acuvue Oasys bandage lens used (x1): BC 8.4; D +0.00; NAS 14.0; Lot # [id number]; EXP: 2022-09-08. RECONSTRUCTION,OCULAR AMNIOTIC 07/09/2018 1:00 PM [employer] Corneal ulcer, right MEMBRANE TRANSPLANT Case Notes CASE RESCHEDULED FROM 06/25/18 TO 07/09/18 ADDED TO PROCEDURE W/ CANDY ON 07/08/18"CORNEA BIOPSY, CORNEA SCRAPPING"AT TIME OF CONFIRMING Acuvue Oasys bandage lens used (x1): BC 8.4; D +0.00; NAS 14.0; Lot # [id number]; EXP: 2022-09-08. POCT-HEMOGLOBIN Routine 07/09/2018 12:21 PM [employer] POCT-HEMATOCRIT Routine 07/09/2018 12:21 PM [employer] POCT-GLUCOSE Routine 07/09/2018 12:21 PM [employer] POCT-CHLORIDE Routine 07/09/2018 12:21 PM [employer] POCT-BUN Routine 07/09/2018 12:21 PM [employer] POCT-POTASSIUM Routine 07/09/2018 12:21 PM [employer] POCT-SODIUM Routine 07/09/2018 12:21 PM [employer] after 12/24/2017 Results POC-Chloride (07/09/2018 12:21 PM [employer]) POC-Chloride 101Comment: TESTED AT 98 - 107 meq/L [facility] [address] [facility] [id number] Specimen Blood Performing Organization Address City/[facility]/Zipcode Phone Number [address] [phone] [place] POC-BUN (07/09/2018 12:21 PM [employer]) POC-BUN 20Comment: TESTED AT [facility] 7 - 21 mg/dL [address] [address] Specimen Blood Performing Organization Address [facility] Phone Number [address] [phone] [place] POCT-HEMATOCRIT (07/09/2018 12:21 PM [employer]) POC-Hematocrit 37Comment: TESTED AT [facility] 36 - 45 % [address] [place] [address] Specimen Blood Performing Organization Address [facility] Phone Number [address] [phone] [place] POCT-HEMOGLOBIN (07/09/2018 12:21 PM [employer]) POC-Hemoglobin 12.6Comment: TESTED AT 12.0 - 15.0 g/dL [facility] [address] [facility] [id number] [address] [facility] [address] Specimen Blood Performing Organization Address [facility] Cent[facility] Phone Number [address] [phone] [place] POCT-GLUCOSE (07/09/2018 12:21 PM [employer]) POC-Glucose 155 (H)Comment: TESTED AT 70 - 110 mg/dL [facility] [address] [facility] [address] Specimen Blood Performing Organization Address City/State/Zipcode Phone Number [facility] [address] [place], [place] [phone] [place] POC-Sodium (07/09/2018 12:21 PM BRE[employer]) POC-Sodium 139Comment: TESTED AT 135 - 148 meq/L [facility] [address] [facility] [address] Specimen Blood Performing Organization Address City/State/Zipcode Phone Number [facility] [address] [place], [place] [phone] [place] POC-Potassium (07/09/2018 12:21 PM [employer]) POC-Potassium 4.1Comment: TESTED AT 3.6 - 5.5 meq/L [facility] [address] [facility] [address] Specimen Blood Performing Organization Address City/State/Zipcode Phone Number [facility] [address] [place] [address] CENTER after 12/24/2017 Insurance Payer Benefit Plan / Group Subscriber ID Type Phone Address MEDICARE MEDICARE A B xxxxxxxxxxx Medicare OTHER-COMMERCIAL GENERIC COMMERCIAL xxxxxxxx
--- OUTSIDE RECORDS SUMMARY | 2018-12-25 22:53 | XMS REPORT | Continuity of Care Document ---
:1955 Author Organization [facility] [place] Care Team Providers Name Role Phone [facility] [place] Unavailable Unavailable Problems Problem Status Onset Classification Date Comments Source Date Reported BREAST IMPLANT Active 11/11/[address] [facility] HEMATOMA [place] POSTTRAMATIC Active 11/11/[address] [facility] HEMATOMA OF LEFT [address] [place] [address] BREST [id number], Active 09/14/[address] [facility] [id number] [place] [address] HISTORYOF BREAST AUGME Absence of Resolved Problem 11/14/[address] [facility] breast, acquired [facility] Diabetes Active Problem 11/14/2016 [facility] Thyroid disease Active Problem 11/14/2016 [facility] End stage renal Active Problem 11/14/[address] [facility] disease on [facility] dialysis due to type 1 diabetes mellitus Hypertension Active Problem 11/14/2016 [facility] Breast cancer Resolved Problem 11/14/2016 [facility] ILLNESS, Active [facility] UNSPECIFIED [facility] CONTUSION OF Active [facility] LEFT BREAST, [place] INITIAL ENCOUN Medications Medication Details Route Status Patient Ordering Order Source Instructions Provider Date bifidobacterium-l 1 tab, CHEW, Active actobacillus oral Daily, # 30 tab, 2016 [facility] tablet, chewable 0 Refill(s) [facility] clindamycin 150 150 mg=1 cap, Active mg oral capsule PO, Q6H, X 14 2016 [facility] , # 56 cap, 0 [facility] Refill(s) Pravastatin 20 mg, 1 tab, No Longer Route: PO, Drug Active 2016 [facility] form: TAB, [facility] Bedtime, Dosing Weight 58.818, kg, Start date: 11/10/16 21:00:00 CDT, Duration: 30 day, Stop date: 12/09/16 21:00:00 CDTNotes: (Same as: Pravachol) Isosorbide 120 mg, 2 tab, No Longer Route: PO, Drug Active 2016 [facility] form: ERTAB, [facility] QPM, Dosing Weight 58.818, kg, Start date: 11/10/16 21:00:00 CDT, Duration: 30 day, Stop date: 12/09/16 21:00:00 CDTNotes: (Same as:Imdur) Do not crush Cleocin HCl + 600 mg, 4 mL, No Longer sodium chloride Route: IVPB, Active 2016 [facility] 0.9% INJ 50 mL [id number], Dosing [facility] Weight 58.818, kg, Start date: 11/10/16 20:00:00 CDT, Duration: 30 day, Stop date: 12/10/16 12:00:00 CDT, ABX Indication: Surgical ProphylaxisNotes : (clindamycin 150 mg/1 ml (600 mg/4 ml VL) INJ) (Same As: Cleocin) Protonix 40 mg, 1 tab, No Longer Route: PO, Drug Active 2016 [facility] form: ECTAB, [facility] Before Dinner, Start date: 11/10/16 16:30:00 CDT, Duration: 30 day, Stop date: 12/09/16 16:30:00 CDTNotes: Tablet should not be chewed or crushed. (Same as: Protonix) Morphine 4 mg, 1 mL, No Longer Route: IM, Drug Active 2016 [facility] form: INJ, Q4H, [facility] Dosing Weight 58.818, kg, PRN Pain Score 7-10, Start date: 11/10/16 16:04:00 CDT, Duration: 30 day, Stop date: 12/10/16 16:03:00 CDTNotes: (Same as:MORPhine Sulfate) Acetaminophen 325 1 tab, Route: No Longer MG / Hydrocodone PO, Drug Form: Active 2016 [facility] Bitartrate 7.5 MG TAB, Dosing [facility] Oral Tablet Weight 58.818, kg, Q4H, PRN Pain Score 4-6, Start date: 11/10/16 16:03:00 CDT, Duration: 30 day, Stop date: 12/10/16 16:02:00 CDTNotes: Same as [place] 325-7.5mg Do not exceed 4gm/day of acetaminophen. ondansetron Route: IV, Drug Inactive (ANES) form: INJ, ONCE, 2016 [facility] Stop date: [facility] 11/10/16 12:56:00 CDT acetaminophen Route: IV, Drug Inactive 11/10/ MH (ANES) form: INJ, ONCE, 2016 [facility] Stop date: [facility] 11/10/16 12:26:00 CDT famotidine (ANES) Route: IV, Drug Inactive 11/10/ form: INJ, ONCE, 2016 [facility] Stop date: [facility] 11/10/16 12:26:00 CDT Cleocin Phosphate Route: IV, Drug Inactive 11/10/ (ANES) + sodium form: INJ, ONCE, 2016 [facility] chloride 0.9% 100 Stop date: [facility] ml INJ (ANES) 11/10/16 12:21:00 CDT ePHEDrine (ANES) Route: IV, Drug Inactive 11/10/ form: INJ, ONCE, 2016 [facility] Stop date: [facility] 11/10/16 12:21:00 CDT fentaNYL (ANES) Route: IV, Drug Inactive 11/10/ form: INJ, ONCE, 2016 [facility] Stop date: [facility] 11/10/16 12:21:00 CDT propofol (ANES) Route: IV, Drug Inactive 11/10/ form: INJ, ONCE, 2016 [facility] Stop date: [facility] 11/10/16 12:21:00 CDT midazolam (ANES) Route: IV, Drug Inactive 11/10/ form: SOLN, 2016 [facility] ONCE, Stop date: [facility] 11/10/16 12:21:00 CDT succinylcholine Route: IV, Drug Inactive 11/10/ (ANES) form: INJ, ONCE, 2016 [facility] Stop date: [facility] 11/10/16 12:11:00 CDT Diphenhydramine 12.5 mg, 0.25 Inactive mL, Route: IVP, 2016 [facility] Drug form: INJ, City Q6H, Dosing Weight 58.818, kg, PRN Itching, Start date: 11/10/16 12:11:00 CDT, Duration: 30 day, Stop date: 12/10/16 12:10:00 CDTNotes: (Same as: Benadryl) Naloxone 0.4 mg, 1 mL, Inactive 11/10/ Route: IVP, Drug 2016 [facility] form: INJ, [place] Q2MIN, Dosing Weight 58.818, kg, PRN Narcotic Reversal, Start date: 11/10/16 12:11:00 CDT, Duration: 8 doses or times, Stop date: Limited # of timesNotes: Same as Narcan Flumazenil 0.2 mg, 2 mL, Inactive Route: IVP, Drug 2016 [facility] form: INJ, PRN, City Dosing Weight 58.818, kg, PRN Benzodiazepine Reversal, Initial dose, Start date: 11/10/16 12:11:00 CDT, Duration: 30 day, Stop date: 12/10/16 12:10:00 CDTNotes: (Same as: Romazicon) Morphine 4 mg, 1 mL, Inactive Route: IVP, Drug 2016 [facility] form: INJ, [place] Q5Min, Dosing Weight 58.818, kg, PRN Pain Score 7-10, Start date: 11/10/16 12:11:00 CDT, Duration: 3 doses or times, Stop date: Limited # of timesNotes: (Same as:MORPhine Sulfate) Hydromorphone 0.5 mg, 0.25 mL, Inactive Route: IVP, Drug 2016 [facility] form: INJ, [place] Q5Min, Dosing Weight 58.818, kg, PRN Pain Score 7-10, Start date: 11/10/16 12:11:00 CDT, Duration: 4 doses or times, Stop date: Limited # of timesNotes: Same as Dilaudid Meperidine 12.5 mg, 0.25 Inactive mL, Route: IVP 2016 [facility] Drug form: INJ, [place] Q30Min, Dosing Weight 58.818, kg, PRN Other -See Comment, For shivering, Start date: 11/10/16 12:11:00 CDT, Duration: 2 doses or times, Stop date: Limited # of timesNotes: (Same as: Demerol) "Use Precaution in Elderly, Seizure disorders, and Renal impairment" Ondansetron 4 mg, 2 mL, Inactive Route: IVP, Drug 2016 [facility] form: INJ, ONCE, City Dosing Weight 58.818, kg, PRN Nausea & Vomiting, Start date: 11/10/16 12:11:00 CDTNotes: (Same as: Zofran) MEDICATION WASTE Product Size: 4 mg Product Wasted: ___ mg Promethazine 6.25 mg, 0.25 Inactive mL, Route: IVPB, 2016 [facility] ONCE, Dosing [facility] Weight 58.818, kg, PRN Nausea & Vomiting, Start date: 11/10/16 12:11:00 CDTNotes: Do not give IV push. (Same as: Phenergan) sodium chloride Route: IV, Total Inactive 0.9% 1000 ml INJ Volume: 1,000, 2016 [facility] (ANES) Start date: [facility] 11/10/16 11:17:00 CDT, Stop date: 11/10/16 12:17:00 CDT Docusate 100 mg, 1 cap, No Longer Route: PO, Drug Active 2016 [facility] form: CAP, BID, [facility] Dosing Weight 58.818, kg, Start date: 11/10/16 9:00:00 CDT, Duration: 30 day, Stop date: 12/09/16 17:00:00 CDTNotes: (Same as: Colace) (Do Not Crush) Hydralazine 100 mg, 2 tab, No Longer Hydrochloride 100 Route: PO, Drug Active 2016 [facility] MG Oral Tablet form: TAB, BID, [facility] Dosing Weight 58.818, kg, Start date: 11/10/16 9:00:00 CDT, Duration: 30 day, Stop date: 12/09/16 21:00:00 CDTNotes: (Same as: Apresoline) May interfere w/enteral feedings Take With Food Esomeprazole 40 mg, Route: Inactive PO, Drug form: 2016 [facility] ECCAP, Daily, [facility] Dosing Weight 58.818, kg, Start date: 11/10/16 9:00:00 CDT, Duration: 30 day, Stop date: 12/09/16 9:00:00 CDT Coreg 25 mg, 1 tab, No Longer Route: PO, Drug Active 2016 [facility] form: TAB, BID, [facility] Dosing Weight 58.818, kg, Start date: 11/10/16 9:00:00 CDT, Duration: 30 day, Stop date: 12/09/16 17:00:00 CDTNotes: Give with food. (Same As: Coreg) Renvela 800 mg, 1 tab, No Longer Route: PO, Drug Active 2016 [facility] form: TAB, [facility] TID-Meals, Dosing Weight 58.818, kg, Start date: 11/10/16 8:00:00 CDT, Duration: 30 day, Stop date: 12/09/16 17:00:00 CDTNotes: Same as: Renvela Synthroid 75 microgram, 1 No Longer tab, Route: PO, Active 2016 [facility] Drug form: TAB, [facility] Q630AM, Dosing Weight 58.818, kg, Start date: 11/10/16 6:30:00 CDT, Duration: 30 day, Stop date: 12/09/16 6:30:00 CDTNotes: Take 1 hour before or 2 hours after meal; Enteral feeds may interefere with the absorption of this medication. (Same as:Synthroid, Levothroid) Cytomel 50 microgram, 2 No Longer tab, Route: PO, [facility] 2016 [facility] Drug form: [facility], [facility] Q630AM, Dosing Weight 58.818, kg, Start date: 11/10/16 6:30:00 CDT, Duration: 30 day, Stop date: 12/09/16 6:30:00 CDTNotes: (Same as: Cytomel) Glucagon 1 mg, Route: IM, No Longer Drug form: [address] PDR/INJ, PRN, [facility] Dosing Weight 58.818, kg, PRN Blood Glucose Results, Start date: 11/10/16 3:25:00 CDT, Duration: 30 day, Stop date: 12/10/16 3:24:00 CDT Dextrose 50% 25 gm, 50 mL, No Longer Syringe Route: IVP, Drug Active 2016 [facility] Form: INJ, [facility] Dosing Weight 58.818, kg, PRN, PRN Blood Glucose Results, Start date: 11/10/16 3:25:00 CDT, Duration: 30 day, Stop date: 12/10/16 3:24:00 CDT Insulin, Aspart, 10 unit, 0.1 mL, No Longer Human Route: SUB-Q, [address] Drug form: SOLN, [facility] Sliding Scale, Dosing Weight 58.818, kg, [...] 0.9% IV IV, Start date: Active 2016 [facility] 11/10/16 3:07:00 [facility] CDT, Duration: 30 day, Stop date: 12/10/16 3:06:00 CDT, PRN Line Flush BD Normal Saline 10 mL, Route: No Longer Flush IVP, Drug Form: Active 2016 [facility] INJ, PRN, PRN [facility] Line Flush, Start date: 11/10/16 3:07:00 CDT, Duration: 30 day, Stop date: 12/10/16 3:06:00 CDTNotes: (Same as: BD Posiflush) Acetaminophen 325 1 tab, Route: Inactive MG / Hydrocodone PO, Drug Form: 2016 [facility] Bitartrate 5 MG TAB, Dosing [facility] Oral Tablet Weight 58.818, kg, Q4H, PRN Pain Score 4-6, Start date: 11/10/16 2:57:00 CDT, Duration: 30 day, Stop date: 12/10/16 2:56:00 CDTNotes: (Same as: [place] 325/5) Do not exceed 4gm/day of acetaminophen. Morphine 2 mg, 1 mL, No Longer Route: IVP, Drug Active 2016 [facility] form: INJ, Q4H, [facility] Dosing Weight 58.818, kg, PRN Pain Score 7-10, Start date: 11/10/16 2:57:00 CDT, Duration: 30 day, Stop date: 12/10/16 2:56:00 CDTNotes: (Same as:MORPhine Sulfate) Acetaminophen 650 mg, 2 tab, No Longer Route: PO, Drug Active 2016 [facility] form: TAB, Q4H, [facility] Dosing Weight 58.818, kg, PRN Pain 1-3/Temp > 100.4 F, Start date: 11/10/16 2:57:00 CDT, Duration: 30 day, Stop date: 12/10/16 2:56:00 CDTNotes: Do not exceed 4 gm/day. (Same as: Tylenol) Ondansetron 4 mg, Route: No Longer IVP, Drug form: Active 2016 [facility] INJ, Q6H, Dosing [place] Weight 58.818, kg, PRN Nausea & Vomiting, Start date: 11/10/16 2:57:00 CDT, Duration: 30 day, Stop date: 12/10/16 2:56:00 CDTNotes: (Same as: Zofran) MEDICATION WASTE Product Size: 4 mg Product Wasted: ___ mg ondansetron Route: IV, Drug Inactive MH (ANES) form: INJ, ONCE, 2016 [facility] Stop date: [facility] 10/09/16 16:09:00 CDT fentaNYL (ANES) Route: IV, Drug Inactive 10/09/ form: INJ, ONCE, 2016 [facility] Stop date: [facility] 10/09/16 16:09:00 CDT EPINEPHrine Route: IV, Drug Inactive 10/09/ (ANES) form: INJ, ONCE, 2016 [facility] Stop date: [facility] 10/09/16 14:53:00 CDT midazolam (ANES) Route: IV, Drug Inactive form: SOLN, 2016 [facility] ONCE, Stop date: [facility] 10/09/16 14:43:00 CDT lidocaine (ANES) Route: IV, Drug Inactive 10/09/ form: INJ, ONCE, 2016 [facility] Stop date: [facility] 10/09/16 14:43:00 CDT Cleocin Phosphate Route: IV, Drug Inactive 10/09/ MH (ANES) form: INJ, ONCE, 2016 [facility] Stop date: [facility] 10/09/16 14:32:00 CDT dexamethasone Route: IV, Drug Inactive 10/09/ (ANES) form: INJ, ONCE, 2016 [facility] Stop date: [facility] 10/09/16 14:27:00 CDT propofol (ANES) Route: IV, Drug Inactive form: INJ, ONCE, 2016 [facility] Stop date: [facility] 10/09/16 14:27:00 CDT ePHEDrine (ANES) Route: IV, Drug Inactive form: INJ, ONCE, 2016 [facility] Stop date: [facility] 10/09/16 14:27:00 CDT fentaNYL (ANES) Route: IV, Drug Inactive form: INJ, ONCE, 2016 [facility] Stop date: [facility] 10/09/16 14:27:00 CDT sodium chloride Route: IV, Total Inactive 0.9% 1000 ml INJ Volume: 1,000, 2016 [facility] (ANES) Start date: [facility] 10/09/16 13:22:00 CDT, Stop date: 10/09/16 14:22:00 CDT Exparel 266 mg, Route: Inactive InFILtration([address]), Drug Form: [place] INJ, Dosing Weight 55.483, kg, ONCE, Start [...] 1 mg, Route: Inactive IVP, Q5Min, 2016 [facility] Dosing Weight [facility] 55.483, kg, PRN Anxiety, Start date: 10/09/16 12:41:00 CDT, Duration: 2 doses or times, Stop date: Limited # of times Promethazine 6.25 mg, Route: Inactive IVPB, ONCE, 2016 [facility] Dosing Weight [facility] 55.483, kg, PRN Nausea & Vomiting, Start date: 10/09/16 12:41:00 CDT Dexamethasone 4 mg, Route: Inactive IVP, ONCE, 2017 [facility] Dosing Weight [facility] 55.483, kg, PRN Nausea & Vomiting, Start date: 10/09/16 12:41:00 CDT Lorazepam 0.5 mg, Route: Inactive IVP, Q20Min, 2017 [facility] Dosing Weight [facility] 55.483, kg, PRN Anxiety, Start date: 10/09/16 12:41:00 CDT, Duration: 3 doses or times, Stop date: Limited # of times 72 HR Scopolamine 1 patch, Route: Inactive 0.0139 MG/HR TOP, Drug Form: 2017 [facility] Transdermal Patch ERFILM, Dosing [facility] Weight 55.483, kg, ONCE, Apply behind ear. Avoid use in elderly., Start date: 10/09/16 12:41:00 CDT, Stop date: 10/09/16 12:41:00 CDTNotes: Change patch every 72 hours (Same as: Transderm-Scop) Ondansetron 4 mg, Route: Inactive IVP, ONCE, 2016 [facility] Dosing Weight [facility] 55.483, kg, PRN Nausea & Vomiting, Start date: 10/09/16 12:41:00 CDT Meperidine 12.5 mg, Route: Inactive IVP, Q30Min, 2017 [facility] Dosing Weight [facility] 55.483, kg, PRN Other -See Comment, For shivering, Start date: 10/09/16 12:41:00 CDT, Duration: 2 doses or times, Stop date: Limited # of times Albuterol 0.83 2.49 mg, Route: Inactive MG/ML Inhalant NEB, PRN, Dosing 2017 [facility] Solution Weight 55.483, City kg, PRN Respiratory Protocol, Start date: 10/09/16 12:41:00 CDT, Duration: 30 day, Stop date: 11/08/16 12:40:00 CDT 200 ACTUAT 2 puff, Route: Inactive Albuterol 0.09 INHALER, Drug 2017 [facility] MG/ACTUAT Metered Form: AERO/A, [facility] Dose Inhaler Dosing Weight 55.483, kg, ONCE, Start date: 10/09/16 12:41:00 CDT, Stop date: 10/09/16 12:41:00 CDT, On arrival to PACUNotes: Albuterol 90 microgram/inh 8gm HFA WASTE: Aerosol - Return to Pharmacy Same as: Ventolin, Proventil Morphine 2 mg, Route: Inactive IVP, Q5Min, 2016 [facility] Dosing Weight [facility] 55.483, kg, PRN Pain Score 4-6, Start date: 10/09/16 12:41:00 CDT, Duration: 5 doses or times, Stop date: Limited # of times Diphenhydramine 12.5 mg, Route: Inactive IVP, Drug form: 2017 [facility] INJ, Q6H, Dosing [facility] Weight 55.483, kg, PRN Itching, Start date: 10/09/16 12:41:00 CDT, Duration: 30 day, Stop date: 11/08/16 12:40:00 CDT Racepinephrine 0.5 mL, Route: Inactive NEB, Dosing 2017 [facility] Weight 55.483, [place] kg, PRN, PRN Shortness of breath, Start date: 10/09/16 12:41:00 CDT, Duration: 30 day, Stop date: 11/08/16 12:40:00 CDT Flumazenil 0.2 mg, Route: Inactive IVP, PRN, Dosing 2017 [facility] Weight 55.483, City kg, PRN Benzodiazepine Reversal, Initial dose, Start date: 10/09/16 12:41:00 CDT, Duration: 30 day, Stop date: 11/08/16 12:40:00 CDT Ephedrine 5 mg, Route: Inactive IVP, Q5Min, 2016 [facility] Dosing Weight [facility] 55.483, kg, PRN Low Blood Pressure, Start date: 10/09/16 12:41:00 CDT, Duration: 30 day, Stop date: 11/08/16 12:40:00 CDT Naloxone 0.4 mg, Route: Inactive IVP, Q2MIN, 2016 [facility] Dosing Weight [facility] 55.483, kg, PRN Narcotic Reversal, Start date: 10/09/16 12:41:00 CDT, Duration: 8 doses or times, Stop date: Limited # of times Ketorolac 15 mg, 0.5 mL, Inactive Route: IVP, Drug 2016 [facility] form: INJ, ONCE, [facility] Dosing Weight 55.483, kg, Start date: 10/09/16 12:41:00 CDT, Duration: 1 doses or times, Stop date: 10/09/16 12:41:00 CDTNotes: (Same as:Toradol) IV bolus must be given >15 seconds. Give IM administration slowly and deeply into the muscle. Not for use > 4 days MEDICATION WASTE Product Size: 30 mg Product Wasted: 15 mg Acetaminophen 1,000 mg, Route: Inactive PO, Drug form: [address] [place] [address] TAB, ONCE, [facility] Dosing Weight 55.483, kg, PRN Pain Score 1-3, Start date: 10/09/16 12:41:00 CDT, Duration: 1 doses or times, Stop date: Limited # of times esmolol 10 mg, Route: Inactive 10/09[facility] IVP, Q5Min, 2016 [facility] Weight [facility] 55.483, kg, PRN Other -See Comment, Start date: 10/09/16 12:41:00 CDT, Duration: 5 doses or times, Stop date: Limited # of times ANES Enalaprilat 0.625 mg, Route: Inactive 10/09[facility] IVP, Q5Min, 2016 [facility] Weight [facility] 55.483, kg, PRN Elevated BP, Start date: 10/09/16 12:41:00 CDT, Duration: 4 doses or times, Stop date: Limited # of times Labetalol 10 mg, Route: Inactive 10/09[facility] IVP, Q5Min, 2016 [facility] Dosing Weight [facility] 55.483, kg, PRN Elevated BP, Start date: 10/09/16 12:41:00 CDT, Duration: 5 doses or times, Stop date: Limited # of times Metoprolol 1 mg, Route: Inactive 10/09[facility] IVP, Q5Min, 2016 [facility] Weight [facility] 55.483, kg, PRN Other -See Comment, Start date: 10/09/16 12:41:00 CDT, Duration: 5 doses or times, Stop date: Limited # of times Hydralazine 10 mg, Route: Inactive 10/09[facility] IVP, Q20Min, 2016 [facility] Weight [facility] 55.483, kg, PRN Elevated BP, Start date: 10/09/16 12:41:00 CDT, Duration: 2 doses or times, Stop date: Limited # of times Hydromorphone 0.5 mg, Route: Inactive IVP, Q5Min, 2016 [facility] Dosing Weight [facility] 55.483, kg, PRN Pain Score 7-10, Start date: 10/09/16 12:41:00 CDT, Duration: 4 doses or times, Stop date: Limited # of times Clindamycin 900 mg, 6 mL, Inactive Route: IVPB, 2017 [facility] ONCE, Dosing [facility] Weight 55.483, kg, Start date: 10/09/16 12:32:00 CDT, Stop date: 10/09/16 12:32:00 CDTNotes: (Same As: Cleocin) Sodium Chloride 500 mL, Route: Inactive 0.154 MEQ/ML IV, ONCE, Dosing 2016 [facility] Injectable Weight 55.483 [facility] Solution kg, Start date: 10/09/16 12:21:00 CDT, Stop date: 10/09/16 12:21:00 CDT, Bolus NovoLog See Active Instructions, 0 2016 [facility] Refill(s) [facility] sevelamer 800 mg=1 tab, Active carbonate 800 MG PO, TID-Meals, # 2017 [facility] Oral Tablet 90 tab, 0 [facility] [Renvela] Refill(s) Esomeprazole 40 40 mg=1 cap, PO, Active MG Enteric Coated Daily, # 30 cap, 2016 [facility] Capsule 0 Refill(s) [facility] Levothyroxine 75 microgram=1 Active Sodium 0.075 MG tab, PO, Daily, 2017 [facility] Oral Tablet # 30 tab, 1 [facility] [Synthroid] Refill(s) Hydralazine 100 mg=1 tab, Active Hydrochloride 100 PO, BID, # 60 2016 [facility] MG Oral Tablet tab, 0 Refill(s) [facility] pravastatin 20 mg 20 mg=1 tab, PO, Active oral tablet Bedtime, # 30 2016 [facility] tab, 0 Refill(s) [facility] carvedilol 25 MG 25 mg=1 tab, PO, Active Oral Tablet BID, # 60 tab, 0 2016 [facility] [Coreg] Refill(s) [facility] isosorbide 120 mg=2 tab, Active mononitrate 60 mg PO, QPM, 0 2016 [facility] oral tablet, Refill(s) [facility] extended release liothyronine 50 microgram=1 Active sodium 0.05 MG tab, PO, Daily, 2016 [facility] Oral Tablet # 30 tab, 0 [facility] [Cytomel] Refill(s) losartan 50 mg 50 mg=1 tab, PO, Active 09/26[facility] oral tablet BID, 0 Refill(s) 2016 [facility] 24 HR Nifedipine 90 mg=1 tab, PO, Active 90 MG Extended BID, # 90 tab, 1 2016 [facility] Release Tablet Refill(s) [facility] Allergies, Adverse Reactions, Alerts Substance Category Reaction Severity Reaction Status Date Comments Source type Reported penicillins Assertion Drug Active allergy [facility] Immunizations No Data Provided for This Section Results Order Name Results Value Reference Date Interpretation Comments Source Range CHEM PANEL eGFR 7 11/11 Result Comment: The [facility] eGFR is City calculated using the CKD-EPI formula. In most young, healthy individuals the eGFR will be >90 mL/min/1.73m2 . The eGFR declines with age. An eGFR of 60-89 may be normal in some populations, particularly the elderly, for whom the CKD-EPI formula has not been extensively validated. Use of the eGFR is not recommended in the following populations:< br/>
Elayne viduals with unstable creatinine concentration s, including patients and those with serious co-morbid conditions.<b r/>
Patie nts with extremes in muscle mass or diet.

The data above are obtained from the National Kid[employer] Disease Education Program (NKDEP) which additionally recommends that when the eGFR is used in patients with extremes of body mass index for purposes of drug dosing, the eGFR should be multiplied by the estimated BMI. CHEM PANEL Creatinine 5.79 0.50 - 11/11 Lvl 1.40 /2016 [facility] CHEM PANEL CO2 24 24 - 32 11/11 [facility] CHEM PANEL Potassium Lvl 5.3 3.5 - 5.1 11/11 [facility] CHEM PANEL Chloride Lvl 100 95 - 109 11/11 [facility] CHEM PANEL Sodium Lvl 139 135 - 145 06/ /2016 [facility] CHEM PANEL BUN 38 7 - 22 06/ /2016 [facility] CHEM PANEL Calcium Lvl 8.6 8.5 - 10.5 06/ [facility] CHEM PANEL Glucose Lvl 148 70 - 99 06/ [facility] CHEM PANEL AGAP 20.3 10.0 - 06/ MH 20.0 /2016 [facility] HEMATOLOGY RDW 15.4 11.5 - 06/ MH 14.5 /2016 [facility] HEMATOLOGY MPV 8.7 7.4 - 10.4 06/ [facility] HEMATOLOGY Platelet 217 133 - 450 06/ /2016 [facility] HEMATOLOGY Hct 27.0 36.0 - 06/ MH 48.0 /2016 [facility] HEMATOLOGY MCH 32.1 27.0 - 06/ MH 31.0 [facility] HEMATOLOGY MCV 97.5 80.0 - 11/11 MH 98.0 /2016 [facility] HEMATOLOGY MCHC 32.9 32.0 - 06/ MH 36.0 /2016 [facility] HEMATOLOGY WBC 6.4 3.7 - 10.4 06/ [facility] HEMATOLOGY RBC 2.76 4.20 - 06 MH 5.40 /2016 [facility] HEMATOLOGY Hgb 8.9 12.0 - 11/11 MH 16.0 [facility] HEMATOLOGY Eosinophils # 0.1 0.0 - 0.5 06/ [facility] HEMATOLOGY Lymphocytes # 0.9 1.0 - 5.5 06/ [facility] HEMATOLOGY Monocytes # 0.7 0.0 - 0.8 06/ [facility] HEMATOLOGY Lymphocytes 14.1 20.0 - 06/ MH 40.0 [facility] HEMATOLOGY Eosinophils 1.9 0.0 - 4.0 06/ [facility] HEMATOLOGY Monocytes 10.7 2.0 - 12.0 06/ [facility] HEMATOLOGY Segs-Bands # 4.7 1.5 - 8.1 06/ [facility] HEMATOLOGY Basophils 0.7 0.0 - 1.0 06/ [facility] HEMATOLOGY Segs 72.6 45.0 - 06/04 MH 75.0 /2016 [facility] CHEM PANEL Phosphorus 3.9 2.5 - 4.5 06/ [facility] CHEM PANEL Magnesium Lvl 2.6 1.8 - 2.4 11/10 [facility] ELECTROLYTES Chloride Lvl 102 95 - 109 11/10 [facility] ELECTROLYTES Calcium Lvl 8.6 8.5 - 10.5 11/10 [facility] ELECTROLYTES Potassium Lvl 4.8 3.5 - 5.1 11/10 [facility] ELECTROLYTES Sodium Lvl 141 135 - 145 11/10 [facility] ELECTROLYTES CO2 29 24 - 32 11/10 [facility] ELECTROLYTES Bili Total 0.7 0.2 - 1.3 11/10 [facility] ELECTROLYTES Total Protein 6.0 6.4 - 8.4 11/10 [facility] ELECTROLYTES Alk Phos 164 39 - 136 11/10 [facility] ELECTROLYTES AST 14 0 - 37 11/10 [facility] ELECTROLYTES ALT 14 0 - 65 11/10 [facility] ELECTROLYTES Albumin Lvl 2.9 3.5 - 5.0 11/10 [facility] ELECTROLYTES Glucose Lvl 153 70 - 99 11/10 [facility] ELECTROLYTES Creatinine 4.87 0.50 - 11/10 Lvl 1.40 [facility] ELECTROLYTES BUN 28 7 - 22 11/10 [facility] ELECTROLYTES eGFR 9 11/10 Result Comment: [facility] eGFR is [place] calculated using the CKD-EPI formula. In most young, healthy individuals the eGFR will be >90 mL/min/1.73m2 . The eGFR declines with age. An eGFR of 60-89 may be normal in some populations, particularly the elderly, for whom the CKD-EPI formula has not been extensively validated. Use of the eGFR is not recommended in the following populations:< br/>
Elayne viduals with unstable creatinine concentration s, including patients and those with serious co-morbid conditions.<b r/>
Patie nts with extremes in muscle mass or diet.

The data above are obtained from the National Kidney Disease Education Program (NKDEP) which additionally recommends that when the eGFR is used in patients with extremes of body mass index for purposes of drug dosing, the eGFR should be multiplied by the estimated BMI. ELECTROLYTES AGAP 14.8 10.0 - 11/10 MH 20.0 [facility] ELECTROLYTES A/G Ratio 0.9 0.7 - 1.6 06 [facility] ELECTROLYTES Globulin 3.1 2.7 - 4.2 11/10 [facility] ELECTROLYTES B/C Ratio 6 6 - 25 11/10 [facility] HEMATOLOGY WBC 6.1 3.7 - 10.4 11/10 [facility] HEMATOLOGY Hct 28.5 36.0 - 11/10 MH 48.0 /2016 [facility] HEMATOLOGY MCV 96.9 80.0 - 11/10 MH 98.0 /2016 [facility] HEMATOLOGY RBC 2.94 4.20 - 11/10 MH 5.40 /2016 [facility] HEMATOLOGY Hgb 9.5 12.0 - 11/10 MH 16.0 [facility] HEMATOLOGY RDW 15.4 11.5 - 11/10 MH 14.5 /2016 [facility] HEMATOLOGY Platelet 192 133 - 450 06 [facility] HEMATOLOGY MCH 32.1 27.0 - 11/10 MH 31.0 [facility] HEMATOLOGY MCHC 33.2 32.0 - 11/10 MH 36.0 [facility] HEMATOLOGY MPV 8.6 7.4 - 10.4 11/10 [facility] HEMATOLOGY Eosinophils # 0.2 0.0 - 0.5 11/10 [facility] HEMATOLOGY Lymphocytes # 1.2 1.0 - 5.5 11/10 [facility] HEMATOLOGY Monocytes # 0.6 0.0 - 0.8 11/10 [facility] HEMATOLOGY Eosinophils 3.7 0.0 - 4.0 11/10 [facility] HEMATOLOGY Segs-Bands # 4.1 1.5 - 8.1 11/10 [facility] HEMATOLOGY Basophils 0.7 0.0 - 1.0 11/10 [facility] HEMATOLOGY Monocytes 9.3 2.0 - 12.0 11/10 [facility] HEMATOLOGY Lymphocytes 19.5 20.0 - 11/10 MH 40.0 [facility] HEMATOLOGY Segs 66.8 45.0 - 11/10 MH 75.0 [facility] HEMATOLOGY POC 11.6 12.0 - 10/09 MH Hemoglobin 16.0 /2016 [facility] HEMATOLOGY POC Glucose 110 70 - 99 10/09 [facility] HEMATOLOGY POC Potassium 4.8 3.5 - 5.1 10/09 [facility] HEMATOLOGY POC 34.0 36.0 - 05 Hematocrit 48.0 /2017 [facility] HEMATOLOGY POC Sodium 137 135 - 145 10/09 [facility] Pathology Reports No Data Provided for This Section Diagnostic Reports Report Value Date Source Chest 1view DX EXAMINATION: Chest, 1 view 11/10/2016 [facility] HISTORY: Shortness of breath FINDINGS: Single frontal view of the chest [...] CT EXAMINATION OF THE CHEST IS RECOMMENDED. Spine lumbar wo PROCEDURE : LUMBAR SPINE MRI 01/18/2015 [facility] contrast MRI REASON FOR EXAM: Lumbar stenosis. COMPARISON: None. TECHNIQUE: Unenhanced axial and sagittal MR images of the lumbar spine were performed. FINDINGS: Five non-rib bearing lumbar type vertebral bodies are assumed. The lumbar vertebral bodies are normally aligned. There is spondylosis of the lumbar spine with multilevel small anterior marginal osteophytes. There are multilevel Schmorl's nodes involving the vertebral endplates. Most notable is moderate fo latisha concavity of the mid superior vertebral endplate of S1 likely a prominent Schmorl's node. There are mild Modic type I degenerative changes of the vertebral endplates from L2 through L4. The re are severe mixed degenerative endplate changes at L5-S1. Artifact [...] diffuse disc space narrowing most pronounced posteriorly. Broad- based posterior disc bulge/protrusion measuring a maximal AP [...] posterior disc space narrowing. Broad-based posterior disc bulge/ protrusion measuring a maximal AP dimension of approximately 4 mm. Moderate facet arthropathy. 8 mm synovial cyst involving t he inferior aspect of the right facets. Mild to moderate right foraminal narrowing most pronounced medially. Mild left foraminal narrowing. Mild spinal stenosis. IMPRESSION: 1. [place] facet arthropathy and disc desiccation. 2. Lumbar spondylosis with multilevel degenerative endplate changes and Schmorl's nodes. 3. Diffuse disc space narrowing, broad-based posterior disc bulge/protrusion , mild to moderate bilateral foraminal narrowing and [...] renal cortical thinning and cysts. SL: 15 Consultation Notes No Data Provided for This Section Discharge Summaries No Data Provided for This Section History and Physicals No Data Provided for This Section Vital Signs Vital Sign Value Date Comments Source Respitory Rate 18 11/11/2016 [facility] Systolic (mm Hg) 147 11/11/2016 [facility] Diastolic (mm Hg) 62 11/11/2016 [facility] Temperature Oral (F) 98.3 F 11/11/2016 [facility] Heart Rate 83 11/11/2016 [facility] Temperature Oral (F) 98.6 F 11/11/2016 [facility] Respitory Rate 18 11/11/2016 [facility] Heart Rate 81 11/11/2016 [facility] Systolic (mm Hg) 130 11/11/2016 [facility] Diastolic (mm Hg) 58 11/11/2016 [facility] Heart Rate 74 11/11/2016 [facility] Systolic (mm Hg) 117 11/11/2016 [facility] Diastolic (mm Hg) 57 11/11/2016 [facility] Respitory Rate 18 11/11/2016 [facility] Temperature Oral (F) 97.8 F 11/11/2016 [facility] BMI Calculated 20.31 11/10/2016 [facility] Weight 58.818 11/10/2016 [facility] Height 170.18 cm 11/10/2016 [facility] Respitory Rate 17 10/09/2016 [facility] Systolic (mm Hg) 100 10/09/2016 [facility] Diastolic (mm Hg) 41 10/09/2016 [facility] Respitory Rate 12 10/09/2016 [facility] Systolic (mm Hg) 111 10/09/2016 [facility] Diastolic (mm Hg) 40 10/09/2016 [facility] Respitory Rate 19 10/09/2016 [facility] Systolic (mm Hg) 112 10/09/2016 [facility] Diastolic (mm Hg) 47 10/09/2016 [facility] Heart Rate 66 10/09/2016 [facility] BMI Calculated 19.16 09/26/2016 [facility] Height 170.18 cm 09/26/2016 [facility] Weight 55.483 09/26/2016 [facility] Encounters Location Location Encounter Encounter Reason Attending ADM DC Status Source Details Type Number For Provider Date Date Visit [facility] Outpt Diag [id number] Laly 01/18 01/19 [facility] 0 Jethro- /2014 [facility] Surgery [id number] Arash 10/09 10/09 Raymundo 0 Sylvia /2016 [facility] [id number] Randy 11/10 11/11 Raymundo Guevara [facility] Procedures Procedure Code Date Perfomer Comments Source Bilateral breast [id number] [facility] Bilateral [id number] [facility] Creation of [id number] [facility] arteriovenous shunt [place] or fistula for dialysis by external cannula Hysterectomy [id number] [facility] Kidney transplant [id number] [facility] Nephrectomy [id number] [facility] Removal of breast [id number] [facility] Vascular surgery [id number] LEFT LEG WITH GREAT TOE AMPUTATION; [facility] procedure<sup>1</patel RIGHT LEG WITH GREAT TOE AMPUTATION City p Assessment and Plan No Data Provided for This Section Plan of Care No Data Provided for This Section Social History Social History Date Source Social History TypeResponse 11/10/2016 [facility] Substance Abuse Use: None. IV drug use: No. Drug use interferes with work/home: No. Ready to change: No. Household substance abuse concerns: No. Cessation Education Provided: No. Alcohol Never, Previous treatment: None. Alcohol use interferes with work or home: No. Drinks more than intended: No. Others hurt by drinking: No. Ready to change: No. Household alcohol concerns: No. Smoking Status Never smoker; Ready to change: No; Concerns about tobacco use in household: No ; Exposure to Tobacco Smoke None; Cigarette Smoking Last 365 Days No; Reg Smoking Cessation Counseling No No data available for this 01/19/2015 [facility] section Family History No Data Provided for This Section Advance Directives No Data Provided for This Section Functional Status No Data Provided for This Section
--- OUTSIDE RECORDS SUMMARY | 2018-12-25 22:54 | XMS REPORT ---
:1955 [facility] Address [address] [place], [place] [address]priya Henry [address] [place] [address] Care Team Providers Name Role Phone DONIS MARQUIS Unavailable Unavailable Problems This patient has no known problems. Allergies, Adverse Reactions, Alerts This patient has no known allergies or adverse reactions. Medications This patient has no known medications. Results Test Description Test Time Test Comments Text Results Atomic Results Result Comments POCT-SODIUM 2018-07-09 12:25:00 Test Item Value Reference Range Comments POC-SODIUM (BEAKER) (test 139 meq/L 135-148 TESTED AT [facility] 7200 zjet=[id number]) [place] [id number] 12:25:00 Test Item Value Reference Range Comments POC-POTASSIUM (BEAKER) 4.1 meq/L 3.6-5.5 TESTED AT [facility] 7200 (test frwe=8971) [facility] [address] [id number] 12:25:00 Test Item Value Reference Range Comments POC-BUN (BEAKER) (test 20 mg/dL 7-21 TESTED AT [facility] 7200 cpvi=9250) [facility] [address] [id number] 12:25:00 Test Item Value Reference Range Comments POC-CHLORIDE (BEAKER) (test 101 meq/L 98-107 TESTED AT [facility] 7200 wzsd=[id number]) [place] [id number] 12:25:00 Test Item Value Reference Range Comments POC-GLUCOSE (BEAKER) (test 155 mg/dL 70-110 TESTED AT [facility] 7200 xxyo=[id number]) [place] [id number] 12:25:00 Test Item Value Reference Range Comments POC-HEMATOCRIT (BEAKER) (test 37 % 36-45 TESTED AT [place] [address] ANIYA ufah=[id number]) [place] [address] [id number] 12:25:00 Test Item Value Reference Range Comments POC-HEMOGLOBIN (BEAKER) 12.6 g/dL 12.0-15.0 TESTED AT [place] [address] (test puso=7770) [place] [address]TESTED AT [place] [address]
[2018-12-26] MEDS ORDERED: HYDROCODONE/APAP 7.5/325 MG TAB ONE (00:24)
--- NOTE | 2018-12-26 00:45 | ER ---
Nurse's Notes [facility] Name: Jens Hightower Age: 63 yrs Sex: Female : 1955 Arrival Date: 12/25/2018 Time: 22:54 Bed 24 Private MD: Nader Roche E Diagnosis: Contusion of left hand Presentation: 12/25 23:08 Presenting complaint: Patient states: i hit my hand unto something 1 week ago, now my mg2 left hand is swollen and painful. Transition of care: patient was not received from another setting of care. Onset of symptoms was December 25, 2018 at 19:00. Risk Assessment: Do you want to hurt yourself or someone else? Patient reports no desire to harm self or others. Initial Sepsis Screen: Does the patient meet any 2 criteria? No. Patient's initial sepsis screen is negative. Does the patient have a suspected source of infection? No. Patient's initial sepsis screen is negative. Care prior to arrival: None. 23:08 Method Of Arrival: Wheelchair mg2 23:08 Acuity: BRANDON 4 mg2 Historical: - Allergies: 23:11 PENICILLINS; mg2 - Home Meds: 12/26 00:13 biotin 2,500 mcg Oral cap 2 caps daily [Active]; Coreg 25 mg Oral tab 1 tab 2 times per mg2 day [Active]; Cytomel 5 mcg Oral tab 1 tab twice a day [Active]; Daily-Karl Oral tab daily [Active]; doxazosin 1 mg Oral tab 1 tab twice a day [Active]; esomeprazole magnesium 40 mg Oral cpDR 1 cap once daily [Active]; Fish Oil 360-1,200 mg Oral cap [Active]; hydralazine 100 mg Oral tab 1 tab daily [Active]; Iron CR Oral daily [Active]; isosorbide mononitrate 120 mg Oral Tb24 1 tab once daily [Active]; losartan 50 mg Oral tab 1 tab 2 times per day [Active]; Nifedipine ER Oral 90 mg twice a day [Active]; novalog [Active]; pravastatin 20 mg Oral tab 1 tab once daily [Active]; Renvela 800 mg Oral tab [Active]; Super B Complex-Vitamin C Oral tab daily [Active]; Synthroid 75 mcg Oral tab 1 tab twice a day [Active]; vit c 1000 mg AM [Active]; Vitamin B-6 100 mg Oral tab daily [Active]; Vitamin D3 5,000 unit Oral tab daily [Active]; - PMHx: 12/25 23:11 chronic renal failure; Diabetes - IDDM; Dialysis; Fibula Shaft Fracture; Hypertension; mg2 Thyroid problem; Tibial Shaft Fracture; - Immunization history:: Flu vaccine is up to date. - Social history:: Smoking status: Patient/guardian denies using tobacco, Patient/guardian denies using alcohol, street drugs, IV drugs. - Ebola Screening: : No symptoms or risks identified at this time. Screenin:25 Abuse screen: Denies threats or abuse. Denies injuries from another. Nutritional mg2 screening: No deficits noted. Tuberculosis screening: No symptoms or risk factors identified. Fall Risk None identified. Assessment: 23:24 General: Appears in no apparent distress. comfortable, Behavior is calm, cooperative. mg2 Pain: Complains of pain in left hand Pain does not radiate. Pain currently is 5 out of 10 on a pain scale. Quality of pain is described as aching, Pain began gradually, 4 hours ago. Is intermittent. Neuro: Level of Consciousness is awake, alert, obeys commands, Oriented to person, place, time, situation. Cardiovascular: Capillary refill < 3 seconds Patient's skin is warm and dry. Respiratory: Airway is patent Respiratory effort is even, unlabored, Respiratory pattern is regular, symmetrical. GI: No signs and/or symptoms were reported involving the gastrointestinal system. : No signs and/or symptoms were reported regarding the genitourinary system. EENT: No signs and/or symptoms were reported regarding the EENT system. Derm: Skin is intact, is healthy with good turgor, Skin is pink, warm \T\ dry. normal. Musculoskeletal: Circulation, motion, and sensation intact. Capillary refill < 3 seconds, Swelling present in left hand. Vital Signs: 23:09 BP 134 / 54; Pulse 70; Resp 18; Temp 98.3; Pulse Ox 95% on R/A; Weight 61.23 kg; Height mg2 5 ft. 6 in. (167.64 cm); Pain 10/17; 12/26 00:58 BP 127 / 53; Pulse 71; Resp 16; Temp 98; Pulse Ox 96% on R/A; rv 12/25 23:09 Body Mass Index 21.79 (61.23 kg, 167.64 cm) mg2 ED Course: 12/25 22:54 Patient arrived in ED. do 22:54 Nader Roche MD is Private Physician. do 23:07 Goran Sharp, RN is Primary Nurse. mg2 23:09 Triage completed. mg2 23:20 [facility]C [facility]. snw 23:20 Lionel Porras MD is Attending Physician. snw 23:25 Patient has correct armband on for positive identification. Door closed. Warm blanket mg2 given. 23:26 Arm band placed on. mg2 23:45 No provider procedures requiring assistance completed. Patient did not have IV access mg2 during this emergency room visit. 23:46 Ice pack to injury. mg2 12/26 00:17 X-ray completed. Portable x-ray completed in exam room. Patient tolerated procedure kw well. 00:34 Nader Roche MD is Referral Physician. snw 00:55 Hand Left 3 View XRAY In Process Unspecified. EDMS 00:59 Velcro wrist splint applied to left wrist. rv Administered Medications: 00:09 Drug: [place] (7.5 mg-325 mg) 1 tabs Route: PO; mg2 00:57 Follow up: Response: No adverse reaction rv Outcome: 00:35 Discharge ordered by MD. snw 00:59 Discharged to home via wheelchair, with family. rv 00:59 Condition: good 00:59 Discharge instructions given to patient, family, Instructed on discharge instructions, follow up and referral plans. medication usage, Demonstrated understanding of instructions, follow-up care, medications, splint care, Prescriptions given X 2. 01:00 Patient left the ED. rv Signatures: Dispatcher [employer] EDMS Nikia Brock FNP-C SENIOR IT RECRUITER-Vandana Alexis Danielle do Goran Sharp RN RN mg2 Mohit Garcia RN RN rv
--- NOTE | 2018-12-26 00:49 | EDPHYS ---
Physician Documentation [facility] Name: Jens Hightower Age: 63 yrs Sex: Female : 1955 Arrival Date: 12/25/2018 Time: 22:54 Bed 24 Private MD: Nader Roche E ED Physician Lionel Porras HPI: 12/26 00:11 This 63 yrs old Female presents to ER via Wheelchair with complaints of Hand snw Pain. 00:11 The patient or guardian reports a contusion, decreased range of motion, pain, swelling. snw The complaints affect the left hand diffusely. Context: The problem was sustained outdoors, resulted from a direct blow, struck on gear shift of golf cart. Onset: The symptoms/episode began/occurred acutely. Associated signs and symptoms: The patient has no apparent associated signs or symptoms. Severity of symptoms: At their worst the symptoms were moderate. It is unknown whether or not the patient has had similar symptoms in the past. It is unknown whether or not the patient has recently seen a physician. Historical: - Allergies: 12/25 23:11 PENICILLINS; mg2 - Home Meds: 12/26 00:13 biotin 2,500 mcg Oral cap 2 caps daily [Active]; Coreg 25 mg Oral tab 1 tab 2 times per mg2 day [Active]; Cytomel 5 mcg Oral tab 1 tab twice a day [Active]; Daily-Karl Oral tab daily [Active]; doxazosin 1 mg Oral tab 1 tab twice a day [Active]; esomeprazole magnesium 40 mg Oral cpDR 1 cap once daily [Active]; Fish Oil 360-1,200 mg Oral cap [Active]; hydralazine 100 mg Oral tab 1 tab daily [Active]; Iron CR Oral daily [Active]; isosorbide mononitrate 120 mg Oral Tb24 1 tab once daily [Active]; losartan 50 mg Oral tab 1 tab 2 times per day [Active]; Nifedipine ER Oral 90 mg twice a day [Active]; novalog [Active]; pravastatin 20 mg Oral tab 1 tab once daily [Active]; Renvela 800 mg Oral tab [Active]; Super B Complex-Vitamin C Oral tab daily [Active]; Synthroid 75 mcg Oral tab 1 tab twice a day [Active]; vit c 1000 mg AM [Active]; Vitamin B-6 100 mg Oral tab daily [Active]; Vitamin D3 5,000 unit Oral tab daily [Active]; - PMHx: 12/25 23:11 chronic renal failure; Diabetes - IDDM; Dialysis; Fibula Shaft Fracture; Hypertension; mg2 Thyroid problem; Tibial Shaft Fracture; - Immunization history:: Flu vaccine is up to date. - Social history:: Smoking status: Patient/guardian denies using tobacco, Patient/guardian denies using alcohol, street drugs, IV drugs. - Ebola Screening: : No symptoms or risks identified at this time. ROS: 12/26 00:10 Constitutional: Negative for fever, chills, and weight loss, Eyes: Negative for injury, snw pain, redness, and discharge, ENT: Negative for injury, pain, and discharge, Neck: Negative for injury, pain, and swelling, Cardiovascular: Negative for chest pain, palpitations, and edema, Respiratory: Negative for shortness of breath, cough, wheezing, and pleuritic chest pain, Abdomen/GI: Negative for abdominal pain, nausea, vomiting, diarrhea, and constipation, Back: Negative for injury and pain, : Negative for injury, bleeding, discharge, and swelling, Skin: Negative for injury, rash, and discoloration, Neuro: Negative for headache, weakness, numbness, tingling, and seizure, Psych: Negative for depression, anxiety, suicide ideation, homicidal ideation, and hallucinations. MS/extremity: Positive for injury or acute deformity, decreased range of motion, pain, swelling, of the left hand. Exam: 00:08 Head/Face: Normocephalic, atraumatic. Eyes: Pupils equal round and reactive to light, snw extra-ocular motions intact. Lids and lashes normal. Conjunctiva and sclera are non-icteric and not injected. Cornea within normal limits. Periorbital areas with no swelling, redness, or edema. ENT: Nares patent. No nasal discharge, no septal abnormalities noted. Tympanic membranes are normal and external auditory canals are clear. Oropharynx with no redness, swelling, or masses, exudates, or evidence of obstruction, uvula midline. Mucous membranes moist. Neck: Trachea midline, no thyromegaly or masses palpated, and no cervical lymphadenopathy. Supple, full range of motion without nuchal rigidity, or vertebral point tenderness. No Meningismus. Chest/axilla: Normal chest wall appearance and motion. Nontender with no deformity. No lesions are appreciated. 00:08 Respiratory: Lungs have equal breath sounds bilaterally, clear to auscultation and percussion. No rales, rhonchi or wheezes noted. No increased work of breathing, no retractions or nasal flaring. Abdomen/GI: Soft, non-tender, with normal bowel sounds. No distension or tympany. No guarding or rebound. No evidence of tenderness throughout. Back: No spinal tenderness. No costovertebral tenderness. Full range of motion. Skin: Warm, dry with normal turgor. Normal color with no rashes, no lesions, and no evidence of cellulitis. MS/ Extremity: Pulses equal, no cyanosis. Neurovascular intact. Full, normal range of motion. Neuro: Awake and alert, GCS 15, oriented to person, place, time, and situation. Cranial nerves II-XII grossly intact. Motor strength 5/5 in all extremities. Sensory grossly intact. Cerebellar exam normal. Normal gait. 00:08 Constitutional: The patient appears alert, awake, anxious, frail. 00:08 Cardiovascular: Rate: normal, Rhythm: regular, Heart sounds: murmur. Vital Signs: 12/25 23:09 BP 134 / 54; Pulse 70; Resp 18; Temp 98.3; Pulse Ox 95% on R/A; Weight 61.23 kg; Height mg2 5 ft. 6 in. (167.64 cm); Pain 5/10; 12/26 00:58 BP 127 / 53; Pulse 71; Resp 16; Temp 98; Pulse Ox 96% on R/A; rv 12/25 23:09 Body Mass Index 21.79 (61.23 kg, 167.64 cm) mg2 MDM: 12/25 23:20 Patient medically screened. snw 23:21 Patient medically screened. snw 12/26 00:36 Data reviewed: vital signs, nurses notes. Data interpreted: Pulse oximetry: on room air snw is 95 %. Interpretation: acceptable. Counseling: I had a detailed discussion with the patient and/or guardian regarding: the historical points, exam findings, and any diagnostic results supporting the discharge/admit diagnosis, radiology results, the need for outpatient follow up, to return to the emergency department if symptoms worsen or persist or if there are any questions or concerns that arise at home. Special discussion: Based on the history and exam findings, there is no indication for further emergent testing or inpatient evaluation. I discussed with the patient/guardian the need to see the orthopedic surgeon for further evaluation of the symptoms. I discussed with the patient/guardian the need to see the primary care provider for further evaluation of the symptoms. 12/25 23:58 Order name: Hand Left 3 View XRAY snw 12/26 00:34 Order name: Thumb Spica Splint; Complete Time: 01:00 snw Administered Medications: 00:09 Drug: [place] (7.5 mg-325 mg) 1 tabs Route: PO; mg2 00:57 Follow up: Response: No adverse reaction rv Disposition: 06:48 Co-signature as Attending Physician, Lionel Porras MD I agree with the assessment and leroy plan of care. Disposition: 12/26/18 00:35 Discharged to Home. Impression: Contusion of left hand. - Condition is Stable. - Discharge Instructions: Cast or Splint Care, Adult, Hand Contusion, RICE for Routine Care of Injuries. - Prescriptions for Tylenol- Codeine #3 300-30 mg Oral Tablet - take 1 tablet by ORAL route every 6 hours As needed; 20 tablet. - Medication Reconciliation Form, Thank You Letter, Antibiotic Education, Prescription Opioid Use form. - Follow up: Nader Roche MD; When: 2 - 3 days; Reason: Recheck today's complaints, Continuance of care, Re-evaluation by your physician. Follow up: Emergency Department; When: As needed; Reason: Worsening of condition. Signatures: Dispatcher [employer] EDCT Lionel Porras MD MD cha Therrien, Shelly, WATER CONSERVATION SPECIALIST-C WATER CONSERVATION SPECIALIST-Csnw Goran Sharp, RN RN mg2 Mohit Garcia RN RN rv Corrections: (The following items were deleted from the chart) 01:00 00:35 12/26/2018 00:35 Discharged to Home. Impression: Contusion of left hand. rv Condition is Stable. Forms are Medication Reconciliation Form, Thank You Letter, Antibiotic Education, Prescription Opioid Use. Follow up: Nader Roche; When: 2 - 3 days; Reason: Recheck today's complaints, Continuance of care, Re-evaluation by your physician. Follow up: Emergency Department; When: As needed; Reason: Worsening of condition. snw
--- NOTE | 2018-12-26 07:52 | RAD REPORT ---
EXAM DESCRIPTION: RAD -Hand Left 3 View - 12/26/2018 12:17 am CLINICAL HISTORY: Left hand pain status post injury FINDINGS: No fracture or dislocation is seen. Bones are markedly osteoporotic. Erosive osteoarthritis involves the fifth DIP joint.
== END 2018-12-26 01:00 | disposition home or self-care (01) ==
LOC: ER 22:50
DX: S60.222A Contusion of left hand, initial encounter (principal); W51.XXXA Accidental striking against or bumped into by another person, initial encounter; Y93.89 Activity, other specified; Y92.9 Unspecified place or not applicable; Z88.0 Allergy status to penicillin; Z99.2 Dependence on renal dialysis; E11.22 Type 2 diabetes mellitus with diabetic chronic kidney disease; I12.0 Hypertensive chronic kidney disease with stage 5 chronic kidney disease or end stage renal disease; N18.6 End stage renal disease
CPT/HCPCS: 99284

== ENCOUNTER 2019-03-24 06:42 | Day surgery (SDC) | payer OTHER ==
[2019-03-24] MEDS ORDERED: NA CHLORIDE 0.9% 500 ML ONE (07:28)
[2019-03-24] MEDS ORDERED: PROPOFOL 200 MG/20 ML VIAL IV ONE (09:29)
[2019-03-24] MEDS ORDERED: LIDOCAINE 1% MPF 5 ML VIAL ONE (09:29)
--- NOTE | 2019-03-24 10:08 | ENDO RPT ---
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 TOPICAL ANESTHETIC: none CONSENT: The patient understands the risks and benefits of the procedure and understands that these risks include, but are not limited to: sedation, allergic reaction, infection, perforation and/or bleeding. Alternative means of evaluation and treatment include, among others: physical exam, x-rays, and/or surgical intervention. The patient elects to proceed with this endoscopic procedure. DESCRIPTION OF PROCEDURE: During intra-op preparation period all mechanical medical equipment was checked for proper function. Hand hygiene and appropriate measures for infection prevention was taken. After the risks, benefits and alternatives of the procedure were thoroughly explained, Informed consent was verified, confirmed and timeout was successfully executed by the treatment team. The patient was anesthetized with topical anesthesia and the Pentax EG-[id number] ([id number]) endoscope was introduced through the mouth and advanced to the second portion of the duodenum. The instrument was slowly withdrawn as the mucosa was fully examined. A moderate sized hiatal hernia was found Moderate gastritis was found in the body and the antrum of the stomach. Multiple biopsies were obtained and sent to pathology. Duodenitis was found in the bulb and descending duodenum. Multiple biopsies were obtained and sent to pathology. Dilation was performed at lower esophagus. DILATOR: SIZE(S): RESISTANCE: HEME: APPEARANCE: Dilator: Savary over guidewire Size(s): 14 mm Resistance: minimal Heme: none Appearance: adequate COMMENT: Retroflexed views revealed a moderate sized hiatal hernia. ADVERSE EVENTS: There were no complications. IMPRESSIONS: 1. Non-obstructive dysphagia, status post 14 mm sSvary dilation 2. Moderate sized hiatal hernia 3. Moderate gastritis with black hue and black petechiae in the body and the antrum of the stomach, s/p biopsies 4. Duodenitis with numerous black petechiae in the bulb and descending duodenum RECOMMENDATIONS: 1. await biopsy results 2. acid suppression therapy REPEAT EXAM: Nader Smith Dr eSigned: Nader Smith Dr 03/24/2019 10:08 AM cc: CPT CODES: ICD9 CODES: PATIENT NAME: Jens HightowerAshlee MR#: [id number]
[2019-03-24 14:19] VITALS: TEMP 97.8
[2019-03-24 14:20] VITALS: BP 144/52; O2SAT 92
== END 2019-03-24 10:47 | disposition home or self-care (01) ==
LOC: OR 06:42
PROVIDERS: ATTEND Internal Medicine Gastroenterology
PROC: 0DB98ZX Excision of Duodenum, Via Natural or Artificial Opening Endoscopic, Diagnostic (ICD-10-PCS; 2019-03-24)
PROC: 0DB68ZX Excision of Stomach, Via Natural or Artificial Opening Endoscopic, Diagnostic (ICD-10-PCS; 2019-03-24)
PROC: 0D738ZZ Dilation of Lower Esophagus, Via Natural or Artificial Opening Endoscopic (ICD-10-PCS; principal; 2019-03-24 09:30)
DX: R13.19 Other dysphagia (principal); K29.50 Unspecified chronic gastritis without bleeding; K29.80 Duodenitis without bleeding; K44.9 Diaphragmatic hernia without obstruction or gangrene; I12.0 Hypertensive chronic kidney disease with stage 5 chronic kidney disease or end stage renal disease; E11.22 Type 2 diabetes mellitus with diabetic chronic kidney disease; N18.6 End stage renal disease; Z99.2 Dependence on renal dialysis; Z86.010 Personal history of colon polyps; Z88.0 Allergy status to penicillin; Z87.891 Personal history of nicotine dependence
CPT/HCPCS: 36415; 88312; 82962 ×2; 88305; 43248; 43239; J2704; J7040

== ENCOUNTER 2019-05-19 08:29 | Day surgery (SDC) | payer OTHER ==
--- OUTSIDE RECORDS SUMMARY | 2019-05-19 08:35 | XMS REPORT ---
:1955 Author Organization [facility] Address [address] [place] [address] Care Team Providers Name Role Phone DONIS [...] (BEAKER) (test 139 meq/L 135-148 TESTED AT [place] [address] eucn=[id number]) [facility] [address] [id number] 12:25:00 Test Item Value Reference Range Comments POC-POTASSIUM (BEAKER) 4.1 meq/L 3.6-5.5 TESTED AT [facility] 7[address] (test rodc=9475) [facility] [address] [id number] 12:25:00 Test Item Value Reference Range Comments POC-BUN (BEAKER) (test 20 mg/dL 7-21 TESTED AT [place] [address]80 dmvv=4477) [facility] [address] [id number] 12:25:00 Test Item Value Reference Range Comments POC-CHLORIDE (BEAKER) (test 101 meq/L 98-107 TESTED AT [facility] 7200 tuzy=2697) [facility] [address] [id number] 12:25:00 Test Item Value Reference Range Comments POC-GLUCOSE (BEAKER) (test 155 mg/dL 70-110 TESTED AT [facility] 7200 qevs=0369) [place] [id number] 12:25:00 Test Item Value Reference Range Comments POC-HEMATOCRIT (BEAKER) (test 37 % 36-45 TESTED AT [place] [address] [place] dugw=[place] [address] [id number] 12:25:00 Test Item Value Reference Range Comments POC-HEMOGLOBIN (BEAKER) 12.6 g/dL 12.0-15.0 TESTED AT [place] [address] (test fehp=3205) [place] [address]TESTED AT [place] [address]
[2019-05-19] MEDS ORDERED: NA CHLORIDE 0.9% 500 ML ONE ×2 (08:49→11:01)
[2019-05-19] MEDS ORDERED: propofoL 200 MG/20 ML VIAL IV ONE ×2 (11:18)
[2019-05-19] MEDS ORDERED: LIDOCAINE 1% MPF 5 ML VIAL ONE (11:18)
[2019-05-19] MEDS ORDERED: Phenylephrine HCl 10 MG/ML 1 ML VIAL ONE (11:22)
[2019-05-19] MEDS ORDERED: NS 0.9% VIAL 0 ML ONE (11:22)
--- NOTE | 2019-05-19 12:09 | ENDO RPT ---
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 ESTIMATED BLOOD LOSS: None CONSENT: The patient understands the risks and benefits of the procedure and understands that these risks include, but are not limited to: sedation, allergic reaction, infection, perforation and/or bleeding. Alternative means of evaluation and treatment include, among others: physical exam, x-rays, and/or surgical intervention. The patient elects to proceed with this endoscopic procedure. DESCRIPTION OF PROCEDURE: During intra-op preparation period all mechanical medical equipment was checked for proper function. Hand hygiene and appropriate measures for infection prevention was taken. Procedure, possible complications, alternatives including, but not limited to possibility of bleeding, perforation, tear, infection, sepsis, need for surgery, need for blood transfusion, were explained to the patient. After the risks, benefits and alternatives of the procedure were thoroughly explained, Informed consent was verified, confirmed and timeout was successfully executed by the treatment team. The patient was placed in the left lateral position. A digital rectal exam was performed and revealed no abnormalities of the rectum. After appropriate level of anesthesia, the scope was passed. The EC-3870LK ([id number]) and EC-[id number] ([id number]) endoscope was introduced through the anus and advanced to the cecum, which was identified by both the appendix and ileocecal valve. The quality of the prep was fair. The instrument was then slowly withdrawn as the colon was fully examined. Scope withdrawal time was 7 minutes. COLON FINDINGS: A smooth sessile polyp measuring 3 mm in size was found in the proximal ascending colon. A polypectomy was performed with cold forceps. A smooth flat polyp measuring 3 mm in size was found in the ascending traverse colon. A polypectomy was performed with cold forceps. A smooth pedunculated polyp measuring 5 mm in size was found in the descending colon. A polypectomy was performed using snare cautery. The wound at the site was closed by placing hemoclips. One (1) placement was made. One (1) placement was made. A smooth flat polyp measuring 6 mm in size was found in the descending colon. A polypectomy was performed with a cold snare. Moderate sized internal hemorrhoids were found. Retroflexed views revealed medium hemorrhoids. The scope was then completely withdrawn from the patient and the procedure terminated. ADVERSE EVENTS: There were no complications. IMPRESSIONS: 1. 3 mm sessile polyp in the proximal ascending colon; polypectomy was performed with cold forceps 2. 3 mm flat polyp in the distal ascending colon; polypectomy was performed with cold forceps 3. 5 mm pedunculated polyp in the descending colon; polypectomy was performed using snare cautery; the wound at the site was closed by placing hemoclips 4. 6 mm flat polyp was found in the descending colon; polypectomy was performed with a cold snare 5. Moderate sized internal hemorrhoids 6. Intubation to cecum 7. Personal history of colon polyps RECOMMENDATIONS: 1. await biopsy results 2. avoid NSAIDS for 2 weeks 3. fiber rich diet RECALL: Return in 3 year(s) for Colonoscopy. Nader Smith Dr eSigned: Nader Smith Dr 05/19/2019 12:09 PM cc: CPT CODES: ICD9 CODES: 211.3 Benign neoplasm of colon PATIENT NAME: Jens Hightower MR#: [id number]
[2019-05-19 12:10] VITALS: O2SAT 100
[2019-05-19 12:13] VITALS: BP 127/53; TEMP 97.7
--- NOTE | 2019-05-19 12:25 | ENDO RPT ---
[address], [address] COLONOSCOPY PROCEDURE REPORT EXAM DATE: 05/19/2019 PATIENT NAME: Jens Hightower MR #: [id number] BIRTHDATE: 1955 ATTENDING: Nader Smith Dr STATUS: outpatient DIAGNOSTIC RADIOLOGIC TECHNOLOGIST: Maria De Jesus Garg RN, Daniel Duran RN, and Mariza Medel Tech INDICATIONS: The patient is a 64 yr old Female here for a colonoscopy due to personal history of colon polyps PROCEDURE PERFORMED: Colonoscopy with snare polypectomy, Colonoscopy with biopsy - cold polypectomy, and Colon w/ endoclip MEDICATIONS: Per Anesthesia. ESTIMATED BLOOD LOSS: None CONSENT: The patient understands the risks and benefits of the procedure and understands that these risks include, but are not limited to: sedation, allergic reaction, infection, perforation and/or bleeding. Alternative means of evaluation and treatment include, among others: physical exam, x-rays, and/or surgical intervention. The patient elects to proceed with this endoscopic procedure. DESCRIPTION OF PROCEDURE: During intra-op preparation period all mechanical medical equipment was checked for proper function. Hand hygiene and appropriate measures for infection prevention was taken. Procedure, possible complications, alternatives including, but not limited to possibility of bleeding, perforation, tear, infection, sepsis, need for surgery, need for blood transfusion, were explained to the patient. After the risks, benefits and alternatives of the procedure were thoroughly explained, Informed consent was verified, confirmed and timeout was successfully executed by the treatment team. The patient was placed in the left lateral position. A digital rectal exam was performed and revealed no abnormalities of the rectum. After appropriate level of anesthesia, the scope was passed. The EC-3870LK ([id number]) and EC-3490LK ([id number]) endoscope was introduced through the anus and advanced to the cecum, which was identified by both the appendix and ileocecal valve. The quality of the prep was fair. The instrument was then slowly withdrawn as the colon was fully examined. Scope withdrawal time was 7 minutes. COLON FINDINGS: A smooth sessile polyp measuring 3 mm in size was found in the proximal ascending colon. A polypectomy was performed with cold forceps. A smooth flat polyp measuring 3 mm in size was found in the ascending traverse colon. A polypectomy was performed with cold forceps. A smooth pedunculated polyp measuring 5 mm in size was found in the descending colon. A polypectomy was performed using snare cautery. The wound at the site was closed by placing hemoclips. One (1) placement was made. One (1) placement was made. A smooth flat polyp measuring 6 mm in size was found in the descending colon. A polypectomy was performed with a cold snare. Moderate sized internal hemorrhoids were found. Retroflexed views revealed medium hemorrhoids. The scope was then completely withdrawn from the patient and the procedure terminated. ADVERSE EVENTS: There were no complications. IMPRESSIONS: 1. 3 mm sessile polyp in the proximal ascending colon; polypectomy was performed with cold forceps 2. 3 mm flat polyp in the distal ascending colon; polypectomy was performed with cold forceps 3. 5 mm pedunculated polyp in the descending colon; polypectomy was performed using snare cautery; the wound at the site was closed by placing hemoclips 4. 6 mm flat polyp was found in the descending colon; polypectomy was performed with a cold snare 5. Moderate sized internal hemorrhoids 6. Intubation to cecum 7. Personal history of colon polyps RECOMMENDATIONS: 1. await biopsy results 2. avoid NSAIDS for 2 weeks 3. fiber rich diet RECALL: Return in 1-3 year(s) for Colonoscopy (poor colonoscope optics). Nader Smith Dr eSigned: Nader Smith Dr 05/19/2019 12:25 PM Revised: 05/19/2019 12:25 PM cc: CPT CODES: ICD9 CODES: 211.3 Benign neoplasm of colon PATIENT NAME: Jens Hightower MR#: [id number]
== END 2019-05-19 12:45 | disposition home or self-care (01) ==
LOC: OR 08:29
PROVIDERS: ATTEND Internal Medicine Gastroenterology
PROC: 0DBK8ZX Excision of Ascending Colon, Via Natural or Artificial Opening Endoscopic, Diagnostic (ICD-10-PCS; principal; 2019-05-19)
PROC: 0DBM8ZX Excision of Descending Colon, Via Natural or Artificial Opening Endoscopic, Diagnostic (ICD-10-PCS; 2019-05-19)
DX: D12.2 Benign neoplasm of ascending colon (principal); D12.4 Benign neoplasm of descending colon; D12.3 Benign neoplasm of transverse colon; K64.8 Other hemorrhoids; E11.9 Type 2 diabetes mellitus without complications; I10 Essential (primary) hypertension; E07.9 Disorder of thyroid, unspecified; K21.9 Gastro-esophageal reflux disease without esophagitis; Z86.010 Personal history of colon polyps; Z99.2 Dependence on renal dialysis; Z87.891 Personal history of nicotine dependence; Z88.0 Allergy status to penicillin; Z90.13 Acquired absence of bilateral breasts and nipples; Z90.710 Acquired absence of both cervix and uterus; Z82.49 Family history of ischemic heart disease and other diseases of the circulatory system
CPT/HCPCS: 36415; 82947 ×5; 88305; 45380; 45385; J2704 ×2; J7040 ×2; J2370

== ENCOUNTER 2020-03-30 17:14 | Emergency (ER) | payer OTHER ==
--- OUTSIDE RECORDS SUMMARY | 2020-03-30 17:16 | XMS REPORT | Clinical Summary ---
:1955 Author Organization [facility] Address [address] [place] [address] Care Team Providers Name Role Phone Unavailable [...] Tab clonidine HCl Take by mouth. 0 A ctive (CATAPRES ORAL) esomeprazole Take 40 mg by [...] daily. loteprednol 1 drop 4 (four) 0 Ac tive (LOTEMAX) 0.5 % times daily. ophthalmic suspension moxifloxacin 1 drop 3 (three) 0 Active (VIGAMOX) 0.5 % times daily. ophthalmic solution NIFEdipine (ADALAT Take 90 mg by mouth 0 Active CC) 90 MG 24 hr daily. tablet insulin aspart U-100 Inject 0 Active (NOVOLOG) 100 subcutaneously 3 unit/mL InPn (three) times daily with meals. omega 4-aki-azu-fish Take by mouth. 0 Active oil (FISH OIL) 100-160-1,000 mg Cap pantoprazole Take 40 mg by mouth 0 Active (PROTONIX) 40 MG daily. tablet pravastatin Take 20 mg by mouth 0 Active (PRAVACHOL) 20 MG daily. tablet prednisoLONE acetate 1 drop 4 (four) 0 Active (PRED FORTE) 1 % times daily. ophthalmic suspension timolol (TIMOPTIC) 1 drop 2 (two) times 0 Active 0.5 % ophthalmic daily. solution tobramycin (TOBREX) 3 (three) times 0 Active 0.3 % ophthalmic daily. ointment hydrOXYzine (ATARAX) Take 10 mg by mouth 0 Active 10 MG tablet 3 (three) times daily as needed for Itching. apixaban (ELIQUIS) Take 2.5 mg by mouth 0 Active 2.5 mg Tab tablet 2 (two) times daily. ferrous sulfate 325 Take 325 mg by mouth 0 Active (65 FE) MG tablet daily with breakfast. multivitamin capsule Take 1 capsule by 0 Active mouth daily. traMADol (ULTRAM) 50 Take 50 mg by mouth 0 Active mg tablet every 6 (six) hours as needed for Pain. Missing or 40 mg/day. 0 Active Non-Formulary MedicationIndication s: Esomeparzole Active Problems Not on file Social History [...] six or more drinks on one occasion? No t asked Sex Assigned at Date Recorded Not on file Last Filed Vital Signs Not on file Plan of Treatment Health Maintenance Due Date Last Done Comments BREAST CANCER SCREENING 1955 COLON CANCER SCREENING COLONOSCOPY 1955 MEDICARE ANNUAL WELLNESS (YEAR 2 or FIRST YEAR if no 12/09/2005 IPPE) PNEUMOCOCCAL 65+ YRS (1 of 1 - [id number]) 2019 INFLUENZA VACCINE (#1) 2020 Implants Implanted Type Area Contact Center Consultant Device Shelf Model / Identifier Expiration Date Ser ial / Lot Tissue Memb Amniogrft 2.5x2.0 Ag-2520f - [id number] IMPLAN TS Right: BIO-TISSUE 01/01/2020 [id number] / Implanted: Qty: 1 on 07/09/2018 by Craig Jones MD at [facility] Eye 18A [id number] / N/A Results Not on fileafter 03/30/2019 Insurance Payer Benefit Plan / Subscriber ID Effective Dates Phone Addre ss Type Group MEDICARE MEDICARE A B [id number] 2004-Present Medicare OTHER-[employer] [id number] 2018-Present L COMMERCIAL
--- OUTSIDE RECORDS SUMMARY | 2020-03-30 17:16 | XMS REPORT | Clinical Summary ---
:1955 Author Organization [facility] Address [address] [place] [address] Care Team Providers Name Role Phone Melchor Lennon MD Primary Care Provider Allergies Active Allergy Reactions Severity Noted Date Comments Penicillins 01/07/2017 Medications Medication Sig Dispensed Refills Start Date End Date Status esomeprazole (NexIUM) Take 40 mg by 3 10/02/2016 Active 40 MG capsule mouth 2 (two) times a day. hydrALAZINE Take 100 mg by 3 11/07/2016 Ac tive (APRESOLINE) 100 MG mouth 2 (two) tablet [...] NIFEdipine XL Take 90 mg by 0 Ac tive (PROCARDIA XL) 90 MG 24 mouth 2 [...] daily. levothyroxine Take 75 mcg by 0 A ctive (SYNTHROID) 75 mcg mouth every tablet morning. sevelamer (RENVELA) 800 Take 800 mg by 0 Active mg tablet mouth 3 (three) times a day with meals. UNABLE TO FIND Med Name: Novalog 0 Active Insulin Pump Active Problems Problem Noted Date PFO with atrial septal aneurysm 01/07/2017 HTN (hypertension), malignant 01/07/2017 End stage renal disease 01/07/2017 Diabetes mellitus 01/07/2017 Surgical History Surgery Date Site/Laterality Comments MASTECTOMY Double BREAST IMPLANT REMOVAL HYSTERECTOMY BYPASS GRAFT Left leg TOE AMPUTATION Left big toe BYPASS GRAFT Right leg TOE AMPUTATION Right big toe INSERTION, IMPLANT OR TISSUE SUCTION ROLLER, BREAST, FOR RECONSTRUCTION CATARACT EXTRACTION TRANSPLANTATION, KIDNEY KIDNEY SURGERY right kidney rem radha Medical History Medical History Date Comments Diabetes mellitus type I (HCC) Hypertension Hyperlipidemia Disease of thyroid gland Kidney disease Family History Medical History Relation Name Comments [...] Health Maintenance Due Date Last Done Comments DIABETES: RETINAL EYE EXAM 02/15/1964 DIABETIC FOOT EXAM 02/15/1964 URINE MICROALBUMIN 02/15/1964 BREAST CANCER SCREENING 02/15/2004 COLONOSCOPY SCREENING 02/15/2004 SHINGLES VACCINES (#1) 02/15/2004 65+ PNEUMOCOCCAL VACCINE (1 of 1 - PPSV23) 2019 INFLUENZA VACCINE 01/09/2020 Results Not on fileafter 03/30/2019 Insurance Payer Benefit Plan / Subscriber ID Effective Dates Phone Addre ss Type Group MEDICARE MEDICARE PART A [id number] 2004-Present MASHA HUNTER Medicare AND B [facility] [id number] 2016-Present Com [employer] SUPPLEMENT
--- OUTSIDE RECORDS SUMMARY | 2020-03-30 17:18 | XMS REPORT | Continuity of Care Document ---
:1955 Author Organization [facility] Information [place] Care Team Providers Name Role Phone [facility] Information Exchange Unavailable Un available Problems Problem Status Onset Classification Date Comments Sourc e Date Reported BREAST IMPLANT Active 11/11/19 Me morial HEMATOMA 17 [place] POSTTRAMATIC Active 11/11/19 Johnnie rial HEMATOMA OF 17 [place] LEFT BREST [id number], Active 09/14/19 Memoria l [id number] [place] [address] HISTORYOF BREAST AUGME End Stage Renal Active 11/18/2012 [facility] Diabetes Active 11/18/2012 [facility] Complication Chronic Kidney Active 11/18/2012 [facility] Malignant Hypertension Absence of Resolved Problem 11/14/[address] [facility] (finding) Diabetes Active Problem 11/14/2016 Memori al mellitus [place] (disorder) Disease of Active Problem 11/14/2016 Mem[address] thyroid gland [facility] (disorder) End stage renal Active Problem 11/14/[address] [facility] disease on [facility] dialysis due to type 1 diabetes mellitus (disorder) Hypertensive Active Problem 11/14/2016 [facility] orial disorder, [place] systemic arterial (disorder) Malignant tumor Resolved Problem 11/14/[address] [facility] of breast [place] (disorder) ILLNESS, Active Memoria l UNSPECIFIED [place] CONTUSION OF Active Johnnie rial LEFT BREAST, [place] INITIAL ENCOUN Medications Medication Details Route Status Patient Ordering Order Source Instructions Provider Date bifidobacterium- 1 tab, CHEW, Active 11/11/ [facility] lactobacillus Daily, # [address] [facility] oral tablet, tab, 0 chewable Refill(s) clindamycin 150 150 mg = 1 cap, Active 11/11/ [facility] mg oral capsule PO, Q6H, X 14 2017 Ci ty day, # 56 cap, 0 Refill(s) Pravastatin Notes: (Same No Longer 11/11/ [facility] morial as: Pravachol) Active 2016 [facility] Isosorbide Notes: (Same No Longer 11/11/ [facility] orial as:Imdur) Do Active 2016 not crush Cleocin HCl + Notes: No Longer Memor ial sodium chloride (clindamycin Active 2016 Cit y 0.9% INJ 50 mL 150 mg/1 ml (600 mg/4 ml VL) INJ) (Same As: Cleocin) Protonix Notes: Tablet No Longer Johnnie rial should not be Active 2016 chewed or crushed. (Same as: Protonix) Morphine Notes: (Same No Longer Memor ial as:MORPhine Active 2016 [facility] Sulfate) Acetaminophen Notes: Same as No Longer [facility] 325 MG / Closplint 325-7.5mg Active 2016 Hydrocodone Do not exceed Bitartrate 7.5 4gm/day of MG Oral Tablet acetaminophen. ondansetron Route: IV, Drug Inactive [facility] (ANES) form: INJ, 2016 [facility] , Stop date: 11/10/16 12:56:00 CDT acetaminophen Route: IV, Drug Inactive [facility] (ANES) form: INJ, 2016, Stop date: 11/10/16 12:26:00 CDT famotidine Route: IV, Drug Inactive [facility] (ANES) form: , 2016 [facility] , Stop date: 11/10/16 12:26:00 CDT Cleocin Route: IV, Drug Inactive Johnnie rial Phosphate (ANES) form: 2016 + sodium ONCE, Stop chloride 0.9% date: 11/10/16 100 ml INJ 12:21:00 CDT (ANES) ePHEDrine (ANES) Route: IV, Drug Inactive [facility] form: INJ, 2016 ONCE, Stop date: 11/10/16 12:21:00 CDT fentaNYL (ANES) Route: IV, Drug Inactive [facility] form: , 2016 [facility] , Stop date: 11/10/16 12:21:00 CDT propofol (ANES) Route: IV, Drug Inactive [facility] form: 2016 [facility] , Stop date: 11/10/16 12:21:00 CDT midazolam (ANES) Route: IV, Drug Inactive [facility] form: SOLN, 2016 ONCE, Stop date: 11/10/16 12:21:00 CDT succinylcholine Route: IV, Drug Inactive [facility] (ANES) form: INJ, 2016 [facility] ONCE, Stop date: 11/10/16 12:11:00 CDT Diphenhydramine Notes: (Same Inactive 11/10[facility] as: Benadryl) 2016 [facility] Naloxone Notes: Same [facility] N[facility]an 2016 [facility] Flumazenil Notes: (Same In[facility] as: Romazicon) [address] [place] [address] Morphine Notes: (Same In[facility] as:MORPhine 2016 [facility] Sulfate) Hydromorphone Notes: Same as Inactive 11/10[facility] Dilaudid 2016 [facility] Meperidine Notes: (Same In[facility] as: Demerol) [address] [place] [address] "Use Precaution in Elderly, Seizure disorders, and Renal impairment&quot ; Ondansetron Notes: (Same Inactive [facility] orial as: Zofran) [address] [place] [address] MEDICATION WASTE Product Size: 4 mg Product Wasted: ___ mg Promethazine Notes: Do not Inactive [facility] emorial give IV push. 2016 [facility] (Same as: Phenergan) sodium chloride Route: IV, Inactive [facility] emorial 0.9% 1000 ml INJ Total Volume: 2016 C ity (ANES) 1,000, Start date: 11/10/16 11:17:00 CDT, Stop date: 11/10/16 12:17:00 CDT Docusate Notes: (Same No Longer [facility] as: Colace) (Do Active 2016 [facility] Not Crush) Hydralazine Notes: (Same No Longer Me morial Hydrochloride as: Apresoline) Active 2016 Ci ty 100 MG Oral May interfere Tablet w/enteral feedings Take With Food Esomeprazole 40 mg, Route: Inactive [facility] emorial PO, Drug form: [address] [place] [address] ECCAP, Daily, Dosing Weight 58.818, kg, Start date: 11/10/16 9:00:00 CDT, Duration: 30 day, Stop date: 12/09/16 9:00:00 CDT Coreg Notes: Give No Longer Memoria l with food. Active 2016 [facility] (Same As: Coreg) Renvela Notes: Same as: No Longer Mem orial Renvela Active 2016 [facility] Synthroid Notes: Take 1 No Longer Mem orial hour before or 2016 [facility] 2 hours after meal; Enteral feeds may interefere with the absorption of this medication. (Same as:Synthroid, Levothroid) Hugo Notes: (Same No Longer Memori al as: Cytomel) 2016 [facility] Glucagon 1 mg, Route: [facility] 2016 [facility] PDR/INJ, PRN, Dosing Weight 58.818, kg, PRN Blood Glucose Results, Start date: 11/10/16 3:25:00 CDT, Duration: 30 day, Stop date: 12/10/16 3:24:00 CDT Dextrose 50% 25 gm, 50 mL, No Longer [facility] Syringe Route: IVP, 2016 [facility] Drug Form: INJ, Dosing Weight 58.818, kg, PRN, PRN Blood Glucose Results, Start date: 11/10/16 3:25:00 CDT, Duration: 30 day, Stop date: 12/10/16 3:24:00 CDT Insulin, Aspart, Notes: Roll in No Longer [facility] Human palms of hands [facility] 2016 [facility] gently; Do not shake vigorously. (Same as: NovoLOG) "single patient use only" WASTE: F/P - Black; E - Municipal Trash Bin Stable for 28 days at room temperature. Expires in days from D ate Sodium Chloride 25 mL, Route: No Longer [facility] 0.9% IV IV, Start date: [facility] 2016 [facility] 11/10/16 3:07:00 CDT, Duration: 30 day, Stop date: 12/10/16 3:06:00 CDT, PRN Line Flush BD Normal Saline Notes: (Same No Longer [facility] Flush as: BD Active 2016 [facility] Posiflush) Acetaminophen Notes: (Same Inactive [facility] 325 MG / as: Closplint 2016 [facility] Hydrocodone 325/5) Do not Bitartrate 5 MG exceed 4gm/day Oral Tablet of acetaminophen. Morphine Notes: (Same No Longer Memor ial as:MORPhine Active 2016 [facility] Sulfate) Acetaminophen Notes: Do not No Longer [facility] exceed [address] [facility] gm/day. (Same as: Tylenol) Ondansetron Notes: (Same No Longer Wy morial as: Zofran) Active 2016 [facility] MEDICATION WASTE Product Size: 4 mg Product Wasted: ___ mg ondansetron Route: IV, Drug Inactive [facility] (ANES) form: 2016 [facility] , Stop date: 10/09/16 16:09:00 CDT fentaNYL (ANES) Route: IV, Drug Inactive [facility] form: 2016 [facility] , Stop date: 10/09/16 16:09:00 CDT EPINEPHrine Route: IV, Drug Inactive [facility] (ANES) form: 2016 [facility] , Stop date: 10/09/16 14:53:00 CDT midazolam (ANES) Route: IV, Drug Inactive [facility] form: SOLN, 2016, Stop date: 10/09/16 14:43:00 CDT lidocaine (ANES) Route: IV, Drug Inactive [facility] form: 2016 [facility] , Stop date: 10/09/16 14:43:00 CDT Cleocin Route: IV, Drug Inactive Johnnie rial Phosphate (ANES) form: 2016, Stop date: 10/09/16 14:32:00 CDT dexamethasone Route: IV, Drug Inactive [facility] (ANES) form: 2016 [facility] , Stop date: 10/09/16 14:27:00 CDT propofol (ANES) Route: IV, Drug Inactive 10/09/ [facility] form: 2016 [facility] , Stop date: 10/09/16 14:27:00 CDT ePHEDrine (ANES) Route: IV, Drug Inactive [facility] form: 2016 [facility] , Stop date: 10/09/16 14:27:00 CDT fentaNYL (ANES) Route: IV, Drug Inactive [facility] form: INJ, 2016 [facility] ONCE, Stop date: 10/09/16 14:27:00 CDT sodium chloride Route: IV, Inactive [facility] emorial 0.9% 1000 ml INJ Total Volume: 2016 C ity (ANES) 1,000, Start date: 10/09/16 13:22:00 CDT, Stop date: 10/09/16 14:22:00 CDT Exparel Notes: (Same [facility]) 2016 [facility] NOT FOR IV use Postoperative analgesia: Infiltration (local): Dose is based on surgical site and volume required to cover the area (in general, the maximum total dose is 266 mg). Bunionectomy: 7 mL into the tissues surrounding the osteotomy and 1 mL into the subcutaneous tissue of the surgical site (total dose = 8 mL [106 mg]) Hemorrhoidectom y: 30 mL (20 mL vial diluted with 10 mL NS) divided and administered as 6 injections of 5 mL each (total dose = 30 mL [266 mg]) Midazolam 1 mg, Route: Inactive [facility], Q5Min, 2016 [facility] Dosing Weight 55.483, kg, PRN Anxiety, Start date: 10/09/16 12:41:00 CDT, Duration: 2 doses or times, Stop date: Limited # of times Promethazine 6.25 mg, Route: Inactive [facility] IVPB, ONCE, 2016 [facility] Dosing Weight 55.483, kg, PRN Nausea & Vomiting, Start date: 10/09/16 12:41:00 CDT Dexamethasone 4 mg, Route: Inactive [facility] emorial IVP, ONCE, 2016 [facility] Dosing Weight 55.483, kg, PRN Nausea & Vomiting, Start date: 10/09/16 12:41:00 CDT Lorazepam 0.5 mg, Route: Inactive 10/09[facility] orial IVP, Q20Min, 2016 [facility] Dosing Weight 55.483, kg, PRN Anxiety, Start date: 10/09/16 12:41:00 CDT, Duration: 3 doses or times, Stop date: Limited # of times 72 HR Notes: Change Inactive Shakaori al Scopolamine patch every [address] [facility] 0.0139 MG/HR hours (Same Transdermal as: Patch Transderm-Scop) Ondansetron 4 mg, Route: Inactive [facility] orial IVP, ONCE, 2016 [facility] Dosing Weight 55.483, kg, PRN Nausea & Vomiting, Start date: 10/09/16 12:41:00 CDT Meperidine 12.5 mg, Route: Inactive [facility] emorial IVP, Q30Min, 2016 [facility] Dosing Weight 55.483, kg, PRN Other -See Comment, For shivering, Start date: 10/09/16 12:41:00 CDT, Duration: 2 doses or times, Stop date: Limited # of times Albuterol 0.83 2.49 mg, Route: Inactive 10/09[facility] MG/ML Inhalant NEB, PRN, 2016 [facility] Solution Dosing Weight 55.483, kg, PRN Respiratory Protocol, Start date: 10/09/16 12:41:00 CDT, Duration: 30 day, Stop date: 11/08/16 12:40:00 CDT 200 ACTUAT Notes: Inactive [facility] Albuterol 0.[address] [facility] MG/ACTUAT microgram/inh Metered Dose 8gm HFA WASTE: Inhaler Aerosol - Return to Pharmacy Same as: Fozia Mosley Morphine 2 mg, Route: Inactive Caterina al IVP, Q5Min, 2016 [facility] Dosing Weight 55.483, kg, PRN Pain Score 4-6, Start date: 10/09/16 12:41:00 CDT, Duration: 5 doses or times, Stop date: Limited # of times Diphenhydramine 12.5 mg, Route: Inactive 10/09[facility] IVP, Drug form: 2016 [facility] INJ, Q6H, Dosing Weight 55.483, kg, PRN Itching, Start date: 10/09/16 12:41:00 CDT, Duration: 30 day, Stop date: 11/08/16 12:40:00 CDT Racepinephrine 0.5 mL, Route: Inactive 10/09[facility] NEB, Dosing 2017 [facility] Weight 55.483, kg, PRN, PRN Shortness of breath, Start date: 10/09/16 12:41:00 CDT, Duration: 30 day, Stop date: 11/08/16 12:40:00 CDT Flumazenil 0.2 mg, Route: Inactive 10/09[facility] Me morial IVP, PRN, 2016 [facility] Dosing Weight 55.483, kg, PRN Benzodiazepine Reversal, Initial dose, Start date: 10/09/16 12:41:00 CDT, Duration: 30 day, Stop date: 11/08/16 12:40:00 CDT Ephedrine 5 mg, Route: Inactive Memor ial IVP, Q5Min, 2016 [facility] Dosing Weight 55.483, kg, PRN Low Blood Pressure, Start date: 10/09/16 12:41:00 CDT, Duration: 30 day, Stop date: 11/08/16 12:40:00 CDT Naloxone 0.4 mg, Route: Inactive 10/09[facility] Johnnie rial IVP, Q2MIN, 2016 [facility] Dosing Weight 55.483, kg, PRN Narcotic Reversal, Start date: 10/09/16 12:41:00 CDT, Duration: 8 doses or times, Stop date: Limited # of times Ketorolac 4 days Inactive 10/09[facility] Johnnie rial MEDICATION [address] [place] [address] WASTE Product Size: 30 mg Product Wasted: 15 mg Acetaminophen 1,000 mg, Inactive 10/09[facility] Johnnie rial Route: PO, Drug 2016 [facility] form: TAB, ONCE, Dosing Weight 55.483, kg, PRN Pain Score 1-3, Start date: 10/09/16 12:41:00 CDT, Duration: 1 doses or times, Stop date: Limited # of times esmolol 10 mg, Route: Inactive 10/09[facility] Memori al IVP, Q5Min, 2016 [facility] Dosing Weight 55.483, kg, PRN Other -See Comment, Start date: 10/09/16 12:41:00 CDT, Duration: 5 doses or times, Stop date: Limited # of times ANES Enalaprilat 0.625 mg, Inactive 10/09[facility] M emorial Route: IVP, 2016 [facility] Q5Min, Dosing Weight 55.483, kg, PRN Elevated BP, Start date: 10/09/16 12:41:00 CDT, Duration: 4 doses or times, Stop date: Limited # of times Labetalol 10 mg, Route: Inactive Johnnie rial IVP, Q5Min, 2016 [facility] Dosing Weight 55.483, kg, PRN Elevated BP, Start date: 10/09/16 12:41:00 CDT, Duration: 5 doses or times, Stop date: Limited # of times Metoprolol 1 mg, Route: Inactive Johnnie rial IVP, Q5Min, 2016 [facility] Dosing Weight 55.483, kg, PRN Other -See Comment, Start date: 10/09/16 12:41:00 CDT, Duration: 5 doses or times, Stop date: Limited # of times Hydralazine 10 mg, Route: Inactive [facility] morial IVP, Q20Min, 2016 [facility] Dosing Weight 55.483, kg, PRN Elevated BP, Start date: 10/09/16 12:41:00 CDT, Duration: 2 doses or times, Stop date: Limited # of times Hydromorphone 0.5 mg, Route: Inactive [facility] IVP, Q5Min, 2016 [facility] Dosing Weight 55.483, kg, PRN Pain Score 7-10, Start date: 10/09/16 12:41:00 CDT, Duration: 4 doses or times, Stop date: Limited # of times Clindamycin Notes: (Same Inactive [facility] orial As: Cleocin) 2016 [facility] Sodium Chloride 500 mL, Route: Inactive [facility] 0.154 MEQ/ML IV, ONCE, 2016 [facility] Injectable Dosing Weight Solution 55.483 kg, Start date: 10/09/16 12:21:00 CDT, Stop date: 10/09/16 12:21:00 CDT, Bolus NovoLog See Active [facility] Instructions, [address] [facility] Refill(s) sevelamer 800 mg = 1 tab, Active [facility] orial carbonate 800 MG PO, TID-Meals, 2017 [facility] Oral Tablet # 90 tab, 0 [Renvela] Refill(s) Esomeprazole 40 40 mg = 1 cap, Active [facility] MG Enteric PO, Daily, # [address] [facility] Coated Capsule cap, 0 Refill(s) Levothyroxine 75 microgram = Active [facility] Sodium 0.075 MG 1 tab, PO, 2017 [facility] Oral Tablet Daily, # 30 [Synthroid] tab, 1 Refill(s) Hydralazine 100 mg = 1 tab, Active [facility] emorial Hydrochloride PO, BID, # 60 2016 [place] 100 MG Oral tab, 0 Tablet Refill(s) pravastatin 20 20 mg = 1 tab, Active [facility] mg oral tablet PO, Bedtime, # 2017 Ci ty 30 tab, 0 Refill(s) carvedilol 25 MG 25 mg = 1 tab, Active [facility] Oral Tablet PO, BID, # 60 2017 [place] [Coreg] tab, 0 Refill(s) isosorbide 120 mg = 2 tab, Active [facility] morial mononitrate 60 PO, QPM, 0 2016 [place] mg oral tablet, Refill(s) extended release liothyronine 50 microgram = Active [facility] emorial sodium 0.05 MG 1 tab, PO, 2017 [facility] Oral Tablet Daily, # 30 [Cytomel] tab, 0 Refill(s) losartan 50 mg 50 mg = 1 tab, Active [facility] oral tablet PO, BID, [address] [facility] Refill(s) 24 HR Nifedipine 90 mg = 1 tab, Active [facility] 90 MG Extended PO, BID, # 90 2016 Cit y Release Tablet tab, 1 Refill(s) Super B Complex (Active) Active [facility] TABS [facility] Vitamin D3 5000 (Active) Active [facility] Oral Physicians Capsule Multi For Her (Active) Active [facility] 50+ Oral Capsule Physici ans Pantoprazole (Active) Active [facility] Sodium 40 MG [facility] Oral Tablet Delayed Release CloNIDine HCl (Active) Active [facility] 0.3 MG Oral [facility]icians Tablet Coreg 25 MG Oral (Active) Active [facility] Tablet Physicians Doxycycline (Active) Active [facility] Monohydrate 100 Physicia ns MG Oral Capsule Pravastatin (Active) Active [facility] Sodium 20 MG [facility] Oral Tablet Losartan (Active) Active [facility] Potassium 50 MG Physicia ns Oral Tablet Renvela 800 MG (Active) Active [facility] Oral Tablet [facility]icians Cytomel 5 MCG (Active) Active [facility] Oral Tablet [facility]icians Synthroid 75 MCG (Active) Active [facility]t [facility] Zantac 150 MG (Active) Active [facility]t [facility] Apidra 100 (Active) Active [facility] UNIT/ML [facility]icians Injection Solution AmLODIPine (Active) Active [facility] Besylate 5 MG [facility]icians Oral Tablet Folic Acid 400 (Active) Active [facility] MCG Oral Tablet Physicia ns Fenugreek Blood (Active) Active [facility] Sugar Health 500 Physici ans MG Oral Capsule Vitamin C 100 MG (Active) Active [facility] Oral Tablet [facility]icians Chewable Vitamin B6 250 (Active) Active [facility] MG Oral Tablet Physician s Iron 25 MG TABS (Active) Active [facility] Vitamin B12 TABS (Active) Active [facility] Topiramate 25 MG (Active) Active [facility] Oral Tablet [facility]icians Allergies, Adverse Reactions, Alerts Substance Category Reaction Severity Reaction Status Date Comments S ource type Reported Penicillins drug drug Active CT allergy allergy Physicia ns penicillins Assertion Drug Active [facility] Immunizations No Data Provided for This Section Results Order Name Results Value Reference Date Interpretation Comments Barbara rce Range CHEM PANEL eGFR 7 11/11 Result Comment: [facility] eGFR is City calculated using the CKD-EPI [...] 5.79 0.50 - 11/11 Lvl 1.40 /2016 [facility] CHEM PANEL CO2 24 24 - 32 11/11 [facility] CHEM PANEL Potassium Lvl 5.3 3.5 - 5.1 11/11 [facility] CHEM PANEL Chloride Lvl 100 95 - 109 11/11 [facility] CHEM PANEL Sodium Lvl 139 135 - 145 11/11 [facility] CHEM PANEL BUN 38 7 - 22 11/11 [facility] CHEM PANEL Calcium Lvl 8.6 8.5 - 10.5 06/04 /2016 [facility] CHEM PANEL Glucose Lvl 148 70 - 99 06/ /2016 [facility] CHEM PANEL AGAP 20.3 10.0 - 06/ MH 20.0 /2016 [facility] HEMATOLOGY RDW 15.4 11.5 - 06/ MH 14.5 /2016 [facility] HEMATOLOGY MPV 8.7 7.4 - 10.4 06/ /2016 [facility] HEMATOLOGY Platelet 217 133 - 450 06/ /2016 [facility] HEMATOLOGY Hct 27.0 36.0 - 06/04 MH 48.0 /2016 [facility] HEMATOLOGY MCH 32.1 27.0 - 06/04 MH 31.0 /2016 [facility] HEMATOLOGY MCV 97.5 80.0 - 06 MH 98.0 /2016 [facility] HEMATOLOGY MCHC 32.9 32.0 - 06/ MH 36.0 /2016 [facility] HEMATOLOGY WBC 6.4 3.7 - 10.4 06/ /2016 [facility] HEMATOLOGY RBC 2.76 4.20 - 11/11 MH 5.40 /2016 [facility] HEMATOLOGY Hgb 8.9 12.0 - 06/ MH 16.0 /2016 [facility] HEMATOLOGY Eosinophils # 0.1 0.0 - 0.5 06/ [facility] HEMATOLOGY Lymphocytes # 0.9 1.0 - 5.5 06/ [facility] HEMATOLOGY Monocytes # 0.7 0.0 - 0.8 06/ [facility] HEMATOLOGY Lymphocytes 14.1 20.0 - 06/ MH 40.0 /2016 [facility] HEMATOLOGY Eosinophils 1.9 0.0 - 4.0 06/ [facility] HEMATOLOGY Monocytes 10.7 2.0 - 12.0 06/ [facility] HEMATOLOGY Segs-Bands # 4.7 1.5 - 8.1 06/ [facility] HEMATOLOGY Basophils 0.7 0.0 - 1.0 06/ [facility] HEMATOLOGY Segs 72.6 45.0 - 06/04 MH 75.0 /2016 [facility] CHEM PANEL Phosphorus 3.9 2.5 - 4.5 06 [facility] CHEM PANEL Magnesium Lvl 2.6 1.8 - 2.4 11/10 [facility] ELECTROLYTES Chloride Lvl 102 95 - 109 06 [facility] ELECTROLYTES Calcium Lvl 8.6 8.5 - 10.5 11/10 [facility] ELECTROLYTES Potassium Lvl 4.8 3.5 - 5.1 11/10 [facility] ELECTROLYTES Sodium Lvl 141 135 - 145 11/10 [facility] ELECTROLYTES CO2 29 24 - 32 11/10 [facility] ELECTROLYTES Bili Total 0.7 0.2 - 1.3 11/10 [facility] ELECTROLYTES Total Protein 6.0 6.4 - 8.4 11/10 [facility] ELECTROLYTES Alk Phos 164 39 - 136 11/10 [facility] ELECTROLYTES AST 14 0 - 37 11/10 [facility] ELECTROLYTES ALT 14 0 - 65 11/10 [facility] ELECTROLYTES Albumin Lvl 2.9 3.5 - 5.0 11/10 [facility] ELECTROLYTES Glucose Lvl 153 70 - 99 11/10 [facility] ELECTROLYTES Creatinine 4.87 0.50 - 11/10 Lvl 1.40 [facility] ELECTROLYTES BUN 28 7 - 22 11/10 [facility] ELECTROLYTES eGFR 9 11/10 Comment: [facility] eGFR is City calculated using the CKD-EPI [...] estimated BMI. ELECTROLYTES AGAP 14.8 10.0 - 06 MH 20.0 /2016 [facility] ELECTROLYTES A/G Ratio 0.9 0.7 - 1.6 11/10 [facility] ELECTROLYTES Globulin 3.1 2.7 - 4.2 11/10 [facility] ELECTROLYTES B/C Ratio 6 6 - 25 06/ /2016 [facility] HEMATOLOGY WBC 6.1 3.7 - 10.4 06/ [facility] HEMATOLOGY Hct 28.5 36.0 - 11/10 MH 48.0 /2016 [facility] HEMATOLOGY MCV 96.9 80.0 - 11/10 MH 98.0 /2016 [facility] HEMATOLOGY RBC 2.94 4.20 - 11/10 MH 5.40 /2016 [facility] HEMATOLOGY Hgb 9.5 12.0 - 11/10 MH 16.0 /2016 [facility] HEMATOLOGY RDW 15.4 11.5 - 11/10 MH 14.5 /2016 [facility] HEMATOLOGY Platelet 192 133 - 450 06 [facility] HEMATOLOGY MCH 32.1 27.0 - 11/10 MH 31.0 /2016 [facility] HEMATOLOGY MCHC 33.2 32.0 - 11/10 MH 36.0 /2016 [facility] HEMATOLOGY MPV 8.6 7.4 - 10.4 11/10 [facility] HEMATOLOGY Eosinophils # 0.2 0.0 - 0.5 11/10 [facility] HEMATOLOGY Lymphocytes # 1.2 1.0 - 5.5 11/10 [facility] HEMATOLOGY Monocytes # 0.6 0.0 - 0.8 11/10 [facility] HEMATOLOGY Eosinophils 3.7 0.0 - 4.0 11/10 [facility] HEMATOLOGY Segs-Bands # 4.1 1.5 - 8.1 11/10 [facility] HEMATOLOGY Basophils 0.7 0.0 - 1.0 11/10 [facility] HEMATOLOGY Monocytes 9.3 2.0 - 12.0 11/10 [facility] HEMATOLOGY Lymphocytes 19.5 20.0 - 11/10 MH 40.0 [facility] HEMATOLOGY Segs 66.8 45.0 - 11/10 MH 75.0 /2016 [facility] HEMATOLOGY POC 11.6 12.0 - 10/09 Hemoglobin 16.0 /2016 [facility] HEMATOLOGY POC Glucose 110 70 - 99 10/09 [facility] HEMATOLOGY POC Potassium 4.8 3.5 - 5.1 10/09 [facility] HEMATOLOGY POC 34.0 36.0 - 10/09 Hematocrit 48.0 [facility] HEMATOLOGY POC Sodium 137 135 - 145 10/09 [facility] Pathology Reports No Data Provided for This Section Diagnostic Reports Report Value Date Source Chest 1view DX EXAMINATION: Chest, 1 view 11/10/2016 [facility] HISTORY: Shortness of breath FINDINGS: Single frontal vie w of the chest is submitted for interpretation without comparison. There is cardiomegaly. There is a small bilateral pleural effusions. There is no pneumothorax. There is a large ill-defined airspace opacity within the left mid and lower lung. The right lung is clear. IMPRESSION: 1. Large ill-defined airspac e opacity within the left mid and lower lung with small bilateral pleural effusions. This large airspace opacity is nonspecific and may represent a large area of focal pneumo melvi consolidation, loculated pleural effusion with atelectasis, or potentially pulmonary mass. FURTHER EVALUATION WITH CONTRAST-ENHANCED CT EXAMINATION OF THE CHEST IS RECOMMENDED. Spine lumbar wo PROCEDURE : LUMBAR SPINE MRI 01/18/2015 [facility] [place] contrast MRI REASON FOR EXAM: Lumbar stenosis. COMPARISON: None. TECHNIQUE: Unenhanced axial and sagittal MR images of the lumbar spine were performed. FINDINGS: Five non-rib beari ng lumbar type vertebral bodies are assumed. The lumbar vertebral bodies are normally aligned. There is spondylosis of the lumbar spine with multilevel small anterior marginal osteophytes. There are multilevel Schmorl's nodes involving the vertebral endplates. Most notable is moderate fo latisha concavity of the mid sup erior vertebral endplate of S1 likely a prominent Schmorl's node. There are mild Modic type I degenerative changes of the vertebral endplates from L2 through L4. The re are severe mixed degenera tive endplate changes at L5-S1. Artifact limits evaluation [...] demonstrates normal signal intensity. T12-L1: Mild facet arthropat hy. No significant foraminal narrowing or spinal stenosis. L1-L2: Mid posterior disc bu lging measuring a maximal AP dimension of approximately 2 mm. Mild facet arthropathy. No significant foraminal narrowing or spinal stenosis. L2-L3: Bilateral posterolate ral disc bulging measuring a maximal AP dimension of approximately 4 mm. Mild facet arthropathy. No significant foraminal narrowing or spinal stenosis. L3-L4: Mild diffuse disc spa ce narrowing most pronounced posteriorly. Broad- based posterior disc bulge/protrusion measuring a maximal AP dimension of approximately 4 mm. Mild facet arthropathy. Thickeni ng of the ligamentum flavum. Mild to moderate bilateral foraminal narrowing most pronounced medially. Moderate spinal stenosis. L4-L5: Bilateral posterolate ral disc bulging measuring a maximal AP dimension of approximately 3 mm. Mild facet arthropathy. Thickening of the ligamentum flavum. Mild bilateral foraminal narrowing. Mild spinal stenosis. L5-S1: Mild posterior disc s pace narrowing. Broad-based posterior disc bulge/protrusion measuring a maximal AP dimension of approximately 4 mm. Moderate facet arthropathy. 8 mm synovial cyst involving t he inferior aspect of the ri ght facets. Mild to moderate right foraminal narrowing most pronounced medially. Mild left foraminal narrowing. Mild spinal stenosis. IMPRESSION: 1. [place] facet arthropathy and disc desiccat ion. 2. Lumbar spondylosis with m ultilevel degenerative endplate changes and Schmorl's nodes. 3. Diffuse disc space narrow ing, broad-based posterior disc bulge/protrusion, mild to moderate bilateral foraminal narrowing and moderate spinal stenosis at L3-L4. 4. Bilateral posterolateral disc bulging, mild bilateral foraminal narrowing and mild spinal stenosis at L4-L5. 5. Posterior disc space narr owing, broad-based posterior disc bulge/protrusion, mild to moderate right foraminal narrowing, mild [...] Date Comments Source Respitory Rate 18 11/11/2016 [facility] it Systolic (mm Hg) 147 11/11/2016 [facility] Diastolic (mm Hg) 62 11/11/2016 [facility] Temperature Oral (F) 98.3 F 11/11/2016 [facility] Heart Rate 83 11/11/2016 [facility] y Temperature Oral (F) 98.6 F 11/11/2016 [facility] Respitory Rate 18 11/11/2016 [facility] Heart [facility] 81 11/11[facility]2016 [facility] Systolic (mm Hg) 130 11/11/[address] [facility] [place] Diastolic (mm Hg) 58 11/11/2016 [facility] Heart Rate 74 11/11/2016 [facility] Systolic (mm Hg) 117 11/11/[address] [facility] [place] Diastolic (mm Hg) 57 11/11/2016 [facility] Respitory Rate 18 11/11/2016 [facility] Temperature Oral (F) 97.8 F 11/11/2016 [facility] BMI Calculated 20.31 11/10/2016 [facility] Weight 58.818 11/10/2016 [facility] Height 170.18 cm 11/10/2016 [facility] Respitory Rate 17 10/09/2016 [facility] Systolic (mm Hg) 100 10/09/[address] [facility] [place] Diastolic (mm Hg) 41 10/09/2016 [facility] Respitory Rate 12 10/09/2016 [facility] Systolic (mm Hg) 111 10/09/[address] [facility] [place] Diastolic (mm Hg) 40 10/09/2016 [facility] Respitory Rate 19 10/09/2016 [facility] Systolic (mm Hg) 112 10/09/[address] [facility] [place] Diastolic (mm Hg) 47 10/09/2016 [facility] Heart Rate 66 10/09/2016 [facility] BMI Calculated 19.16 09/26/2016 [facility] Height 170.18 cm 09/26/[address] [facility] Weight 55.483 09/26/2016 [facility] Encounters Location Location Encounter Encounter Reason Attending ADM DC Stat us Source Details Type Number For Provider Date Date Visit AUDIT [id number] 08/04 /2012 [facility] AUDIT [id number] 08/06 /2012 Arac[facility] ns AMI, [id number] 08/12 08/06 [place] Provider: LESLY Robin [place], Status: Pen, Time: 8:00 AM [facility], [id number] 08/12 08/06 [place] Provider: DESTINY Robin ns Status: Pen, Time: 9:30 AM EST, [id number] 08/18 08/06 [place] Provider: ENRIQUE Sultana dia A, Status: Pen, Time: 1:30 PM AUDIT [id number] 08/25 Physicia ns AUDIT [id number] 09/24 Physicia ns AUDIT [id number] 11/17 Physicia ns EST, [id number] 02/23 11/18 [place] Provider: ENRIQUE Sultana dia A, Status: Pen, Time: 1:30 PM [facility] Outpt Diag [id number] Laly 01/18 08 M [facility] 0 Jethro- /2014 [facility] Surgery [id number] Arash 10/09 10/09 Raymundo 0 [facility] [id number] Randy 11/10 11/11 Raymundo 4 Ismael [facility] Procedures Procedure Code Date Perfomer Comments Source B[id number] [facility] Bilateral [id number] [facility] Creation of [id number] [facility] arteriovenous shunt [facility] or fistula for dialysis by external cannula Hysterectomy [id number] [facility] Kidney transplant [id number] [facility] Nephrectomy [id number] [facility] Removal of breast [id number] [facility] implant [facility] Vascular surgery [id number] LEFT LEG WITH GREAT TOE AMPUTATION; [facility] procedure<sup>1</patel RIGHT LEG WITH G REAT TOE AMPUTATION [facility] p> Assessment and Plan No Data Provided for This Section Plan of Care Plan of Care Date Source [N] 2D Echo complete, with 11/18/2012 [facility] Doppler 08/04/2012 Routine [N] 2D Echo complete, with 09/25/2012 [facility] Doppler 08/04/2012 Routine Nuclear Test-Adenosine Stress 08/25/2012 [facility] Perfusion 08/04/2012 [id number] Echo complete, with Doppler 08/04/2012 Routine Nuclear Test-Adenosine Stress 08/06/2012 [facility] Perfusion 08/04/2012 [id number] Echo complete, with Doppler 08/04/2012 Routine Nuclear Test-Adenosine Stress 08/04/2012 [facility] Perfusion 08/04/2012 [id number] Echo complete, with Doppler 08/04/2012 Routine Social History Social History Date Source Social History TypeResponse 11/10/2016 [facility] Substance Abuse Use: None. IV drug use: No. Drug use i nterferes with work/home: No. Ready to change: No. Household substance abuse concerns: No. Cessation Education Provided: No. Alcohol Never, Previous treatment: None. Alcoho l use interferes with work or home: No. Drinks more than intended: No. Others hurt by drinking: No. Ready to change: No. Household alcohol concerns: No. Smoking Status Never smoker; Ready to change: No; Gloria rns about tobacco use in household: No; Exposure to Tobacco Smoke None; Cigarette Smoking Last 365 Days No; Reg Smoking Cessation Counseling No No data available for this 01/19/2015 [facility] Nellie and section Former Smoker (V15.82); 11/18/2012 [facility] (Active) Family History Value Date Source Family history of Coronary 11/18/2012 [facility] Artery Disease (V17.49); (Active) Family history of Coronary 09/25/2012 [facility] Artery Disease (V17.49); (Active) Family history of Coronary 08/25/2012 [facility] Artery Disease (V17.49); (Active) Family history of Coronary 08/06/2012 [facility] Artery Disease (V17.49); (Active) Family history of Coronary 08/04/2012 [facility] Artery Disease (V17.49); (Active) Advance Directives Order Name Results Value Date Source Advance Directives Advance Directives No Advance 11/18/2012 [facility] Directives available. Advance Directives Advance Directives No Advance 09/25/2012 [facility] Directives available. Advance Directives Advance Directives No Advance 08/25/2012 [facility] Directives available. Advance Directives Advance Directives No Advance 08/06/2012 [facility] Directives available. Advance Directives Advance Directives No Advance 08/04/2012 [facility] Directives available. Functional Status No Data Provided for This Section
--- OUTSIDE RECORDS SUMMARY | 2020-03-30 17:19 | XMS REPORT | Continuity of Care Document ---
:1955 Author Organization [facility] t Address [address] [place] [address] Care Team Providers Name Role Phone Melchor Lennon MD Primary Care Physician Viviana Osuna MD Attending Clinician Sree MARQUIS Attending Clinician Unavailable Ismael Attending Clinician Valeria Ward Attending Clinician Ene Mendoza Attending Clinician Sree MARQUIS Admitting Clinician Unavailable Ismael Admitting Clinician Problems Condition Condition Condition Status Onset Resolution Last Treating Co mments Source Name Details Category Date Date Treatment Clinician Date PFO with PFO with Disease Active [place] atrial atrial 01-07 [facility] septal septal 00:00: st aneurysm aneurysm 00 HTN HTN Disease Active [place] (hypertens (hypertens 01-07 Me thodi ion), ion), 00:00: st malignant malignant 00 End stage End stage Disease Active Damaris ston renal renal 01-07 [facility] disease disease 00:00: st 00 BREAST Diagnosis Active 2016-11-10 Mem oria IMPLANT 11-10 02:25:00 l HEMATOMA BREAST 00:00: Dennis n IMPLANT 00 HEMATOMA Active 11/10/2016 [facility] POSTTRAMAT Diagnosis Active 2017-04-02 Memoria IC 6-03 21:52:00 l HEMATOMA 00:00: [place] OF LEFT POSTTRAMAT 00 BREST IC HEMATOMA OF LEFT BREST Active 11/10/2016 [facility] [id number], Diagnosis Active 2016-10-09 Memoria [id number] 4-06 05:36:00 l HISTORYOF 00:00: [place] BREAST [id number], 00 AUGME 51153-5 HISTORYOF BREAST AUGME Active 09/13/2016 [facility] Absence of Problem Resolve 2016-11-14 Memoria breast d 00:20:34 l (finding) Absence Herm priya of breast (finding) Resolved Problem 11/14/2016 [facility] Malignant Problem Resolve 2016-11-14 M emoria tumor of d 00:20:34 l breast [place] (disorder) Malignant tumor of breast (disorder) Resolved Problem 11/14/2016 [facility] End Stage Problem Active 2012-11-18 Me moria Renal 02:06:24 l Disease End [place] Stage Renal Disease Active [facility] Diabetes Problem Active 2012-11-18 Mem oria Mellitus 02:06:24 l With Diabetes Dennis n Complicati Mellitus on With Complicati on Active 11/18/2012 [facility] Chronic Problem Active 2012-11-18 Johnnie ena Kidney 02:06:24 l Disease Chronic Dennis n With Kidney Malignant Disease Hypertensi With on Malignant Hypertensi on Active 11/18/2012 [facility] Diabetes Problem Active 2016-11-14 Mem oria mellitus 00:20:34 l (disorder) Diabetes [place] mellitus (disorder) Active Problem 11/14/2016 [facility] Disease of Problem Active 2016-11-14 M emoria thyroid 00:20:34 l gland Disease [place] (disorder) of thyroid gland (disorder) Active Problem 11/14/2016 [facility] End stage Problem Active 2016-11-14 Me moria renal 00:20:34 l disease on End Dennis n dialysis stage due to renal type 1 disease on diabetes dialysis mellitus due to (disorder) type 1 diabetes mellitus (disorder) Active Problem 11/14/2016 [facility] Hypertensi Problem Active 2016-11-14 M emoria ve 00:20:34 l disorder, [place] systemic Hypertensi arterial ve (disorder) disorder, systemic arterial (disorder) Active Problem 11/14/2016 [facility] ILLNESS, Diagnosis Active 2016-11-10 M emoria UNSPECIFIE 03:17:00 l D ILLNESS, [place] n UNSPECIFIE D Active [facility] CONTUSION Diagnosis Active 2017-04-02 Memoria OF LEFT 21:52:00 l BREAST, [place] INITIAL CONTUSION ENCOUN OF LEFT BREAST, INITIAL ENCOUN Active [facility] Allergies, Adverse Reactions, Alerts Allergy Allergy Status Severity Reaction(s) Onset Inactive Treating Comm ents Source Name Type Date Date Clinician Penicill Propensi Active [place] ins ty to 01-07 [facility] adverse 00:00: st reaction 00 s to drug Penicill Propensi Active Hives, Rash [facility] adverse [facility] reaction 00 Center s Penicill Penicill Active Memori a ins ins l [place] penicill penicill Active Memori a ins ins l [place] Family History Family Member Diagnosis Comments Start Date Stop Date Source Natural father Heart attack [place] Gnosticism Natural mother Hypertension [place] Gnosticism Natural mother Thyroid disease [place] Gnosticism Natural sister Hypertension [place] Gnosticism Unknown Family Family History 2012-08-04 2012-08-04 Memori al [place] Member 19:54:47 19:54:47 Social History Social Habit Start Date Stop Date Quantity Comments Source History SDOH [facility] Std Drinks Medica l Center History SDOH [facility] - Alcohol Binge Medical Iain ter Sex Assigned At [facility] Tobacco use and 2018-07-10 2018-07-10 Never used [facility] St Tawana kes - exposure 00:00:00 00:00:00 [facility] Center Alcohol intake 2018-07-10 2018-07-10 Current [facility] St Fady es - 00:00:00 00:00:00 non-drinker of Medical Ce nter alcohol (finding) History SDOH 2018-07-08 2018-07-[address] [facility] - Alcohol Frequency 00:00:00 00:00:00 [facility] Social History 2012-11-18 2012-11-18 [facility] ermann 02:06:24 02:06:24 Smoking Status Start Date Stop Date Source Former smoker 2018-10-26 00:00:00 2018-10-26 00:00:00 [place] Gnosticism Never smoker [facility] Medications Ordered Filled Start Stop Current Ordering Indication Dosage Frequency Signature Comments Components Source Medication Medication Date Date Medication? Clinician (SIG) Name Name ascorbic 2019- Yes 1000mg QD Take 1,[address] acid, 1-30 mg by [facility] - vitamin C, 14:23: mouth Medica l (VITAMIN C) 18 daily. [place] 1000 MG tablet atropine 2018- Yes 1[drp] Q.16587845 [address] [facility] (ISOPTO) 1 1-30 [id number] (three) [facility] - % 14:23: 3D times Medical ophthalmic 18 daily. [place] solution b complex 2018- Yes 1{tbl} QD Take [address] vitamins 1-30 tablet by [facility] - tablet 14:23: mouth Medical 18 daily. [place] biotin 1 mg 0 Yes Take by [facility] Cap 1-30 mouth. [facility] - 14:23: Medical 18 [place] carvedilol Yes 25mg Take [address] (COREG) 25 1-30 by mouth 2 Fady es - MG tablet 14:23: (two) Medical 18 times Center daily with breakfast and dinner. cholecalcif 2018-0 Yes 5000U QD Take 5,[address] charlie, 1-30 Units by [facility] - vitamin D3, 14:23: mouth Medic al 5,000 unit 18 daily. [place] Tab clonidine 0 Yes Take by [facility] t HCl 1-30 mouth. [facility] - (CATAPRES 14:23: Medical ORAL) 18 [place] esomeprazol Yes 40mg QD Take [address] e (NEXIUM) 1-30 by mouth [facility] - 40 MG 14:23: daily. Medical capsule 18 [place] hydrALAZINE 2018-0 Yes 100mg Q.5D Take [address] (APRESOLINE 1-30 mg by [facility] - ) 100 MG 14:23: mouth 2 Medica l tablet 18 (two) Center times daily. isosorbide 2019-0 Yes 60mg QD Take [address] mononitrate 1-30 by mouth Luke s - (IMDUR) 60 14:23: daily. Medic al MG 24 hr 18 [place] tablet levothyroxi 2018-0 Yes 75ug Take [address] ne 1-30 mcg by [facility]ukes - (SYNTHROID, 14:23: mouth Medic al LEVOTHROID) 18 Every Center 75 MCG morning on tablet an empty stomach. liothyronin 0 Yes 5ug QD Take [address] e (CYTOMEL) 1-30 by mouth Luke s - 5 MCG 14:23: daily. Medical tablet 18 [place] losartan Yes 50mg QD Take [address] (COZAAR) 50 1-30 by mouth Luke s - MG tablet 14:23: daily. Medica l 18 [place] loteprednol 2018-0 Yes 1[drp] Q.25D [address] (LOTEMAX) 1-30 (four) [facility] - 0.5 % 14:23: times Medical ophthalmic 18 daily. Center suspension moxifloxaci 0 Yes 1[drp] Q.48014267 [address] [facility] n (VIGAMOX) 1-30 [id number] (three) [facility]ukes - 0.5 % 14:23: 3D times Medical ophthalmic 18 daily. [place] solution NIFEdipine Yes 90mg QD Take [address] (ADALAT CC) 1-30 by mouth Luke s - 90 MG 24 hr 14:23: daily. Medi latisha tablet 18 [place] insulin Yes Inject [facility] aspart 1-30 subcutaneo [facility]ukes - U-100 14:23: usly 3 Medical (NOVOLOG) 18 (three) Center 100 unit/mL times InPn daily with meals. omega Yes Take by [facility] 3-dha-epa-f 1-30 mouth. [facility] - liliana oil 14:23: Medical (FISH OIL) 18 [place] 100-160-1,0 00 mg Cap pantoprazol 0 Yes 40mg QD Take [address] e 1-30 by mouth [facility]ukes - (PROTONIX) 14:23: daily. Medic al 40 MG 18 Center tablet pravastatin Yes 20mg QD Take [address] (PRAVACHOL) 1-30 by mouth Luke s - 20 MG 14:23: daily. Medical tablet 18 [place] prednisoLON 0 Yes 1[drp] Q.25D [address] E acetate 1-30 (four) [facility]ukes - (PRED 14:23: times Medical FORTE) 1 % 18 daily. [place] ophthalmic suspension timolol 2019-0 Yes 1[drp] Q.5D [address] (TIMOPTIC) 1-30 (two) [facility]ukes - 0.5 % 14:23: times Medical ophthalmic 18 daily. Center solution tobramycin 2019-0 Yes Q.[id number] 3 (three) [facility] (TOBREX) 1-30 [id number] times Luke s - 0.3 % 14:23: 3D daily. Medical ophthalmic 18 Center ointment hydrOXYzine Yes 10mg Take [address] (ATARAX) 10 1-30 by mouth 3 Tawana kes - MG tablet 14:23: (three) Medic al 18 times Center daily as needed for Itching. apixaban Yes 2.5mg Q.5D Take 2.[address] (ELIQUIS) 1-30 mg by [facility]ukes - 2.5 mg Tab 14:23: mouth 2 Medi latisha tablet 18 (two) Center times daily. ferrous Yes 325mg Take 325 [facility] sulfate 325 1-30 mg by [facility]ukes - (65 FE) MG 14:23: mouth Medica l tablet 18 daily with Center breakfast. multivitami Yes 1{capsu QD Take [address] n capsule 1-30 le} capsule by Luke s - 14:23: mouth Medical 18 daily. Center traMADol Yes 50mg Take [address] (ULTRAM) 50 1-30 by mouth Luke s - mg tablet 14:23: every 6 Medic al 18 (six) Center hours as needed for Pain. Missing or Yes 40mg/d 40 mg/day. [facility] Non-Formula 1-30 [facility] - ry 14:23: Medical Medication 18 Center ascorbic Yes 1000mg QD Take 1,000 [place] acid, 9-11 mg by Methodi vitamin C, 08:56: mouth st (vitamin C) 09 daily. 1000 MG tablet pyridoxine, Yes 100mg QD Take 100 [place] vitamin B6, 9-11 mg by Methodi (B-6) 100 08:56: mouth st MG tablet 09 daily. ferrous Yes 325mg QD Take 325 [place] sulfate 325 9-11 mg by Methodi (65 FE) MG 08:56: mouth st tablet 09 daily with breakfast. biotin 2017-0 Yes 1{tbl} Take 1 Eng 5,000 mcg 9-11 tablet by Metho di tablet,disi 08:56: mouth st ntegrating 09 daily. VITAMIN B 2017-0 Yes 1{tbl} Take 1 [place] COMPLEX VIT 9-11 tablet by Met hodi C NO.4 08:56: mouth st (SUPER B 09 daily. COMPLEX + C ORAL) cholecalcif 2017-0 Yes 1{tbl} Take 1 [place] charlie, 9-11 tablet by Methodi vitamin D3, 08:56: mouth st (VITAMIN 09 daily. D3) 5,000 unit tablet VIT B 2017-0 Yes 1{tbl} Take 1 Eng COMPLX 9-11 tablet by Methodi C/FOLIC 08:56: mouth st ACID/ZINC 09 daily. (DIALYVITE 800 WITH ZINC 50 ORAL) omega-3 2017- Yes 1{tbl} Take 1 [place] fatty 9-11 tablet by Methodi acids-fish 08:56: mouth st oil (OMEGA 09 daily. 3 FISH OIL) 684-1,200 mg capsule,del ayed release(DR/ EC) NIFEdipine 2017-0 Yes 90mg Q.5D Take 90 mg [place] XL 9-11 by mouth 2 Methodi (PROCARDIA 08:56: (two) st XL) 90 MG 09 times a 24 hr day. tablet losartan 2017-0 Yes 50mg Q.5D Take 50 mg Damaris ston (COZAAR) 50 9-11 by mouth 2 Me thodi MG tablet 08:56: (two) st 09 times a day. liothyronin 2017-0 Yes 5ug Q.5D Take 5 mcg Eng e (CYTOMEL) 9-11 by mouth 2 Me thodi 5 MCG 08:56: (two) st tablet 09 times a day. isosorbide 2017-0 Yes 120mg QD Take 120 [place] mononitrate 9-11 mg by Methodi (IMDUR) 60 08:56: mouth st MG 24 hr 09 daily. tablet carvedilol 2017-0 Yes 25mg Q.5D Take 25 mg [place] (COREG) 25 9-11 by mouth 2 Met hodi MG tablet 08:56: (two) st 09 times a day with meals. pravastatin 2017-0 Yes 20mg QD Take 20 mg Eng (PRAVACHOL) 9-11 by mouth Meth anitha 20 MG 08:56: daily. st tablet 09 levothyroxi Yes 75ug QD Take 75 Damaris alberto ne 9-11 mcg by Methodi (SYNTHROID) 08:56: mouth st 75 mcg 09 every tablet morning. sevelamer Yes 800mg Q.[id number] Take 800 Eng (RENVELA) 02-18 [id number] mg by Met hodi 800 mg 08:56: 3D mouth 3 st tablet 09 (three) times a day with meals. UNABLE TO Yes Med Name: Damaris alberto FIND 02-18 Novalog [facility]i 08:56: Insulin st 09 Pump bifidobacte Yes 1 tab, Johnnie ena rium-lactob 6-04 CHEW, l acillus 14:29: Daily, # Dennis n oral 00 30 tab, 0 tablet, Refill(s) chewable clindamycin Yes 150 mg = 1 Memoria 150 mg oral 604 cap, PO, l capsule 14:29: Q6H, X 14 Marich[place] nn 00 day, # 56 cap, 0 Refill(s) Pravastatin No Notes: Johnnie ena -04 (Same as: l 02:00: Pravachol) [place] 00 Isosorbide No Notes: Memor ia 6-04 (Same l 02:00: as:Imdur) [place] 00 Do not crush Cleocin HCl No Notes: Johnnie ena + sodium - (clindamyc l chloride 01:00: in 150 [place] 0.9% INJ 50 00 mg/1 ml mL (600 mg/4 ml VL) INJ) (Same As: Cleocin) Protonix No Notes: Memoria 6-03 Tablet l 21:30: should not [place] 00 be chewed or crushed. (Same as: Protonix) Morphine No Notes: Memoria 6-03 (Same l 21:04: as:MORPhin [place] 00 e Sulfate) Acetaminoph No Notes: Johnnie ena en 325 MG / 6- Same as l Hydrocodone 21:03: [place] Marichuy nn Bitartrate 00 325-7.5mg 7.5 MG Oral Do not Tablet exceed 4gm/day of acetaminop hen. ondansetron No Route: IV, Memoria (ANES) 11-10 Drug form: l 17:56: INJ, ONCE, [place] Stop date: 11/10/16 12:56:00 CDT acetaminoph No Route: IV, Memoria en (ANES) 11-10 Drug form: l 17:26: INJ, ONCE, Stop date: 11/10/16 12:26:00 CDT famotidine No Route: IV, M emoria (ANES) 11-10 Drug form: l 17:26: INJ, ONCE, [place] Stop date: 11/10/16 12:26:00 CDT Cleocin No Route: IV, Johnnie ena Phosphate 11-10 Drug form: l (ANES) + 17:21: INJ, ONCE, Her durán sodium Stop date: chloride 11/10/16 0.9% 100 ml 12:21:00 INJ (ANES) CDT ePHEDrine No Route: IV, Me moria (ANES) 11-10 Drug form: l 17:21: INJ, ONCE, Stop date: 11/10/16 12:21:00 CDT fentaNYL No Route: IV, Mem oria (ANES) 11-10 Drug form: l 17:21: INJ, ONCE, Stop date: 11/10/16 12:21:00 CDT propofol No Route: IV, Mem oria (ANES) 11-10 Drug form: l 17:21: INJ, ONCE, Stop date: 11/10/16 12:21:00 CDT midazolam No Route: IV, Me moria (ANES) 11-10 Drug form: l 17:21: SOLN, [place] 00 ONCE, Stop date: 11/10/16 12:21:00 CDT succinylcho No Route: IV, Memoria line (ANES) 11-10 Drug form: l 17:11: INJ, ONCE, Stop date: 11/10/16 12:11:00 CDT Diphenhydra No Notes: Johnnie ena mine 11-10 (Same as: l 17:11: Benadryl) Naloxone No Notes: Memoria 6-03 Same as l 17:11: Narcan Flumazenil No Notes: Memor ia 6-03 (Same as: l 17:11: Romazicon) Morphine No Notes: Memoria 6-03 (Same l 17:11: as:MORPhin [place] 00 e Sulfate) Hydromorpho No Notes: Johnnie ena ne 11-10 Same as l 17:11: Dilaudid Meperidine No Notes: Memor ia 6- (Same as: l 17:11: Demerol) "Use Precaution in Elderly, Seizure disorders, and Renal impairment " Ondansetron No Notes: Johnnie ena 6- (Same as: l 17:11: Zofran) MEDICATION WASTE Product Size: 4 mg Product Wasted: ___ mg Promethazin No Notes: Do M emoria e 11-10 not give l 17:11: IV push. (Same as: Phenergan) sodium No Route: IV, Memor ia chloride 11-10 Total l 0.9% 1000 16:17: Volume: Marichuy nn ml INJ 00 1,000, (ANES) Start date: 11/10/16 11:17:00 CDT, Stop date: 11/10/16 12:17:00 CDT Docusate No Notes: Memoria 6- (Same as: l 14:00: Colace) (Do Not Crush) Hydralazine No Notes: Johnnie ena Hydrochlori 11-10 (Same as: l de 100 MG 14:00: Apresoline He rm Oral Tablet ) May interfere w/enteral feedings Take With Food Esomeprazol No 40 mg, Johnnie ena e 11-10 Route: PO, l 14:00: Drug form: [place] 00 ECCAP, Daily, Dosing Weight 58.818, kg, Start date: 11/10/16 9:00:00 CDT, Duration: 30 day, Stop date: 12/09/16 9:00:00 CDT Coreg No Notes: Memoria 6- Give with l 14:00: food. [place] 00 (Same As: Coreg) Renvela No Notes: Memoria 6- Same as: l 13:00: Renvela 00 Synthroid No Notes: Memori a 6- Take 1 l 11:30: hour [place] 00 before or 2 hours after meal; Enteral feeds may interefere with the absorption of this medication . (Same as:Synthro id, Levothroid ) Cytomel No Notes: Memoria 6- (Same as: l 11:30: Cytomel) Glucagon No 1 mg, Memoria 11-10 Route: IM, l 08:25: Drug form: PDR/INJ, PRN, Dosing Weight 58.818, kg, PRN Blood Glucose Results, Start date: 11/10/16 3:25:00 CDT, Duration: 30 day, Stop date: 12/10/16 3:24:00 CDT Dextrose No 25 gm, 50 Johnnie ena 50% Syringe 11-10 mL, Route: l 08:25: IVP, Drug Form: INJ, Dosing Weight 58.818, kg, PRN, PRN Blood Glucose Results, Start date: 11/10/16 3:25:00 CDT, Duration: 30 day, Stop date: 12/10/16 3:24:00 CDT Insulin, No Notes: Memoria Aspart, - Roll in l Human 08:25: palms of hands gently; Do not shake vigorously . (Same as: NovoLOG) "single patient use only" WASTE: F/P - Black; E - Municipal Trash Bin Stable for 28 days at room temperatur e. Expires in days from ____Date Sodium No 25 mL, Memoria Chloride 11-10 Route: IV, l 0.9% IV 08:07: Start [place] 00 date: 11/10/16 3:07:00 CDT, Duration: 30 day, Stop date: 12/10/16 3:06:00 CDT, PRN Line Flush BD Normal No Notes: Memori a Saline 11-10 (Same as: l Flush 08:07: BD [place] 00 Posiflush) Acetaminoph No Notes: Johnnie ena en 325 MG / 11-10 (Same as: l Hydrocodone 07:57: [place] Marichuy nn Bitartrate 00 325/5) Do 5 MG Oral not exceed Tablet 4gm/day of acetaminop hen. Morphine No Notes: Memoria 11-10 (Same l 07:57: as:MORPhin e Sulfate) Acetaminoph No Notes: Do M emoria en 11-10 not exceed l 07:57: 4 gm/day. [place] 00 (Same as: Tylenol) Ondansetron No Notes: Johnnie ena 11-10 (Same as: l 07:57: Zofran) MEDICATION WASTE Product Size: 4 mg Product Wasted: ___ mg hydrALAZINE Yes 100mg Q.5D Take 100 [place] (APRESOLINE 5-31 mg by Methodi ) 100 MG 00:00: mouth 2 st tablet 00 (two) times a day. ondansetron No Route: IV, Memoria (ANES) 5- Drug form: l 21:09: INJ, ONCE, [place] 00 Stop date: 10/09/16 16:09:00 CDT fentaNYL No Route: IV, Mem oria (ANES) 5-02 Drug form: l 21:09: INJ, ONCE, [place] 00 Stop date: 10/09/16 16:09:00 CDT EPINEPHrine No Route: IV, Memoria (ANES) 5-02 Drug form: l 19:53: INJ, ONCE, [place] 00 Stop date: 10/09/16 14:53:00 CDT midazolam No Route: IV, Me moria (ANES) 5-02 Drug form: l 19:43: SOLN, [place] 00 ONCE, Stop date: 10/09/16 14:43:00 CDT lidocaine No Route: IV, Me moria (ANES) 5-02 Drug form: l 19:43: INJ, ONCE, [place] 00 Stop date: 10/09/16 14:43:00 CDT Cleocin No Route: IV, Johnnie ena Phosphate - Drug form: l (ANES) 19:32: INJ, ONCE, Marichuy nn 00 Stop date: 10/09/16 14:32:00 CDT dexamethaso No Route: IV, Memoria ne (ANES) 10-09 Drug form: l 19:27: INJ, ONCE, Stop date: 10/09/16 14:27:00 CDT propofol No Route: IV, Mem oria (ANES) 10-09 Drug form: l 19:27: INJ, ONCE, Stop date: 10/09/16 14:27:00 CDT ePHEDrine No Route: IV, Me moria (ANES) 10-09 Drug form: l 19:27: INJ, ONCE, Stop date: 10/09/16 14:27:00 CDT fentaNYL No Route: IV, Mem oria (ANES) 10-09 Drug form: l 19:27: INJ, ONCE, Stop date: 10/09/16 14:27:00 CDT sodium No Route: IV, Memor ia chloride 10-09 Total l 0.9% 1000 18:22: Volume: Marichuy nn ml INJ 00 1,000, (ANES) Start date: 10/09/16 13:22:00 CDT, Stop date: 10/09/16 14:22:00 CDT Exparel Yes Notes: Memoria 10-09 (Same as: l 17:46: Exparel) NOT FOR IV use Postoperat cristian analgesia: Infiltrati on (local): Dose is based on surgical site and volume required to cover the area (in general, the maximum total dose is 266 mg). Bunionecto my: 7 mL into the tissues surroundin g the osteotomy and 1 mL into the subcutaneo us tissue of the surgical site (total dose = 8 mL [106 mg]) Hemorrhoid ectomy: 30 mL (20 mL vial diluted with 10 mL NS) divided and administer ed as 6 injections of 5 mL each (total dose = 30 mL [266 mg]) Midazolam 2017-0 No 1 mg, Memoria 10-09 Route: l 17:41: IVP, [place] 00 Q5Min, Dosing Weight 55.483, kg, PRN Anxiety, Start date: 10/09/16 12:41:00 CDT, Duration: 2 doses or times, Stop date: Limited # of times Promethazin 2016-0 No 6.25 mg, Me moria e 10-09 Route: l 17:41: IVPB, [place] 00 ONCE, Dosing Weight 55.483, kg, PRN Nausea & Vomiting, Start date: 10/09/16 12:41:00 CDT Dexamethaso No 4 mg, Memor ia ne 10-09 Route: l 17:41: IVP, ONCE, [place] 00 Dosing Weight 55.483, kg, PRN Nausea & Vomiting, Start date: 10/09/16 12:41:00 CDT Lorazepam 2016-0 No 0.5 mg, Memor ia 10-09 Route: l 17:41: IVP, [place] 00 Q20Min, Dosing Weight 55.483, kg, PRN Anxiety, Start date: 10/09/16 12:41:00 CDT, Duration: 3 doses or times, Stop date: Limited # of times 72 HR Yes Notes: Memoria Scopolamine 10-09 Change l 0.0139 17:41: patch [place] MG/HR 00 every 72 Transdermal hours Patch (Same as: Transderm- Scop) Ondansetron 2016-0 No 4 mg, Memor ia 10-09 Route: l 17:41: IVP, ONCE, [place] Dosing Weight 55.483, kg, PRN Nausea & Vomiting, Start date: 10/09/16 12:41:00 CDT Meperidine 2016-0 No 12.5 mg, Mem oria 10-09 Route: l 17:41: IVP, [place] 00 Q30Min, Dosing Weight 55.483, kg, PRN Other -See Comment, For shivering, Start date: 10/09/16 12:41:00 CDT, Duration: 2 doses or times, Stop date: Limited # of times Albuterol 2016-0 No 2.49 mg, Johnnie ena 0.83 MG/ML 10-09 Route: l Inhalant 17:41: NEB, PRN, Herm priya Solution 00 Dosing Weight 55.483, kg, PRN Respirator y Protocol, Start date: 10/09/16 12:41:00 CDT, Duration: 30 day, Stop date: 11/08/16 12:40:00 CDT 200 ACTUAT 2017-0 Yes Notes: Memor ia Albuterol 02 Albuterol l 0.09 17:41: 90 [place] MG/ACTUAT 00 microgram/ Metered inh 8gm Dose HFA Inhaler WASTE: Aerosol - Return to Pharmacy Same as: Fozia Mosley Morphine 2017-0 No 2 mg, Memoria 10-09 Route: l 17:41: IVP, [place] 00 Q5Min, Dosing Weight 55.483, kg, PRN Pain Score 4-6, Start date: 10/09/16 12:41:00 CDT, Duration: 5 doses or times, Stop date: Limited # of times Diphenhydra 2016-0 No 12.5 mg, Me moria mine 10-09 Route: l 17:41: IVP, Drug [place] form: INJ, Q6H, Dosing Weight 55.483, kg, PRN Itching, Start date: 10/09/16 12:41:00 CDT, Duration: 30 day, Stop date: 11/08/16 12:40:00 CDT Racepinephr 2016-0 No 0.5 mL, Mem oria ine 10-09 Route: l 17:41: NEB, [place] 00 Dosing Weight 55.483, kg, PRN, PRN Shortness of breath, Start date: 10/09/16 12:41:00 CDT, Duration: 30 day, Stop date: 11/08/16 12:40:00 CDT Flumazenil 2016-0 No 0.2 mg, Johnnie ena 10-09 Route: l 17:41: IVP, PRN, [place] 00 Dosing Weight 55.483, kg, PRN Benzodiaze pine Reversal, Initial dose, Start date: 10/09/16 12:41:00 CDT, Duration: 30 day, Stop date: 11/08/16 12:40:00 CDT Ephedrine 2017-0 No 5 mg, Memoria 10-09 Route: l 17:41: IVP, [place] 00 Q5Min, Dosing Weight 55.483, kg, PRN Low Blood Pressure, Start date: 10/09/16 12:41:00 CDT, Duration: 30 day, Stop date: 11/08/16 12:40:00 CDT Naloxone 2016-0 No 0.4 mg, Memori a 10-09 Route: l 17:41: IVP, [place] 00 Q2MIN, Dosing Weight 55.483, kg, PRN Narcotic Reversal, Start date: 10/09/16 12:41:00 CDT, Duration: 8 doses or times, Stop date: Limited # of times Ketorolac 2016-0 Yes 4 days Memor ia 10-09 l 17:41: MEDICATION [place] 00 WASTE Product Size: 30 mg Product Wasted: 15 mg Acetaminoph 2016-0 No 1,000 mg, M emoria en 10-09 Route: PO, l 17:41: Drug form: [place] 00 TAB, ONCE, Dosing Weight 55.483, kg, PRN Pain Score 1-3, Start date: 10/09/16 12:41:00 CDT, Duration: 1 doses or times, Stop date: Limited # of times esmolol 2016-0 No 10 mg, Memoria 10-09 Route: l 17:41: IVP, [place] 00 Q5Min, Dosing Weight 55.483, kg, PRN Other -See Comment, Start date: 10/09/16 12:41:00 CDT, Duration: 5 doses or times, Stop date: Limited # of times ANES 2016-0 No 0.625 mg, Memoria Enalaprilat 10-09 Route: l 17:41: IVP, [place] 00 Q5Min, Dosing Weight 55.483, kg, PRN Elevated BP, Start date: 10/09/16 12:41:00 CDT, Duration: 4 doses or times, Stop date: Limited # of times Labetalol 2016-0 No 10 mg, Memori a 10-09 Route: l 17:41: IVP, [place] 00 Q5Min, Dosing Weight 55.483, kg, PRN Elevated BP, Start date: 10/09/16 12:41:00 CDT, Duration: 5 doses or times, Stop date: Limited # of times Metoprolol 2016-0 No 1 mg, Memori a 10-09 Route: l 17:41: IVP, [place] 00 Q5Min, Dosing Weight 55.483, kg, PRN Other -See Comment, Start date: 10/09/16 12:41:00 CDT, Duration: 5 doses or times, Stop date: Limited # of times Hydralazine No 10 mg, Johnnie ena 10-09 Route: l 17:41: IVP, [place] 00 Q20Min, Dosing Weight 55.483, kg, PRN Elevated BP, Start date: 10/09/16 12:41:00 CDT, Duration: 2 doses or times, Stop date: Limited # of times Hydromorpho No 0.5 mg, Mem oria ne 10-09 Route: l 17:41: IVP, [place] 00 Q5Min, Dosing Weight 55.483, kg, PRN Pain Score 7-10, Start date: 10/09/16 12:41:00 CDT, Duration: 4 doses or times, Stop date: Limited # of times Clindamycin Yes Notes: Johnnie ena 10-09 (Same As: l 17:32: Cleocin) [place] 00 Sodium No 500 mL, Memoria Chloride 10-09 Route: IV, l 0.154 17:21: ONCE, Ray[place] MEQ/ML 00 Dosing Injectable Weight Solution 55.483 kg, Start date: 10/09/16 12:21:00 CDT, Stop date: 10/09/16 12:21:00 CDT, Bolus esomeprazol Yes 40mg Q.5D Take 40 mg Eng e (NexIUM) 4-25 by mouth 2 Met hodi 40 MG 00:00: (two) st capsule 00 times a day. NovoLog Yes See Memoria 4-19 Instructio l 19:29: ns, 0 [place] 00 Refill(s) sevelamer Yes 800 mg = 1 Me moria carbonate 4-19 tab, PO, l 800 MG Oral 19:28: TID-Meals, Raymundo Tablet 00 # 90 tab, [Renvela] 0 Refill(s) Esomeprazol Yes 40 mg = 1 M emoria e 40 MG 4-19 cap, PO, l Enteric 19:28: Daily, # Dennis n Coated 00 30 cap, 0 Capsule Refill(s) Levothyroxi Yes 75 Memori a ne Sodium 4-19 microgram l 0.075 MG 19:28: = 1 tab, Marichuy nn Oral Tablet 00 PO, Daily, [Synthroid] # 30 tab, 1 Refill(s) Hydralazine Yes 100 mg = 1 Memoria Hydrochlori 4-19 tab, PO, l de 100 MG 19:28: BID, # 60 Her durán Oral Tablet 00 tab, 0 Refill(s) pravastatin Yes 20 mg = 1 M emoria 20 mg oral 4-19 tab, PO, l tablet 19:27: Bedtime, # Marichuy nn 00 30 tab, 0 Refill(s) carvedilol Yes 25 mg = 1 Me moria 25 MG Oral 4-19 tab, PO, l Tablet 19:27: BID, # 60 Dennis n [Coreg] 00 tab, 0 Refill(s) isosorbide Yes 120 mg = 2 M emoria mononitrate 4-19 tab, PO, l 60 mg oral 19:27: QPM, 0 Marichuy nn tablet, 00 Refill(s) extended release liothyronin Yes 50 Memori a e sodium 4-19 microgram l 0.05 MG 19:26: = 1 tab, Dennis n Oral Tablet 00 PO, Daily, [Cytomel] # 30 tab, 0 Refill(s) losartan 50 Yes 50 mg = 1 M emoria mg oral 4-19 tab, PO, l tablet 19:26: BID, 0 [place] 00 Refill(s) 24 HR Yes 90 mg = 1 Memoria Nifedipine 4-19 tab, PO, l 90 MG 19:26: BID, # 90 [place] Extended 00 tab, 1 Release Refill(s) Tablet Super B Yes (Active) Memor ia Complex 6-11 l TABS 02:06: [place] 24 Vitamin D3 Yes (Active) Me moria 5000 UNIT 6-11 l Oral 02:06: [place] Capsule 24 Multi For Yes (Active) Mem oria Her 50+ 6-11 l Oral 02:06: [place] Capsule 24 Pantoprazol Yes (Active) M emoria e Sodium 40 6-11 l MG Oral 02:06: [place] Tablet 24 Delayed Release CloNIDine Yes (Active) Mem oria HCl 0.3 MG 6-11 l Oral Tablet 02:06: Dennis n 24 Coreg 25 MG Yes (Active) M emoria Oral Tablet 6-11 l 02:06: [place] 24 Doxycycline Yes (Active) M emoria Monohydrate 6-11 l 100 MG Oral 02:06: Dennis n Capsule 24 Pravastatin Yes (Active) M emoria Sodium 20 6-11 l MG Oral 02:06: [place] Tablet 24 Losartan Yes (Active) Johnnie ena Potassium 6-11 l 50 MG Oral 02:06: [place] Tablet 24 Renvela 800 Yes (Active) M emoria MG Oral 6-11 l Tablet 02:06: [place] 24 Cytomel 5 Yes (Active) Mem oria MCG Oral 6-11 l Tablet 02:06: [place] 24 Synthroid Yes (Active) Mem oria 75 MCG Oral 6-11 l Tablet 02:06: [place] 24 Zantac 150 Yes (Active) Me moria MG Oral 6-11 l Tablet 02:06: [place] 24 Apidra 100 Yes (Active) Me moria UNIT/ML 6-11 l Injection 02:06: [place] Solution 24 AmLODIPine Yes (Active) Me moria Besylate 5 6-11 l MG Oral 02:06: [place] Tablet 24 Folic Acid Yes (Active) Me moria 400 MCG 6-11 l Oral Tablet 02:06: Dennis n 24 Fenugreek Yes (Active) Mem oria Blood Sugar 6-11 l Health 500 02:06: [place] MG Oral 24 Capsule Vitamin C Yes (Active) Mem oria 100 MG Oral 6-11 l Tablet 02:06: [place] Chewable 24 Vitamin B6 Yes (Active) Me moria 250 MG Oral 6-11 l Tablet 02:06: [place] 24 Iron 25 MG Yes (Active) Me moria TABS 6-11 l 02:06: [place] 24 Vitamin B12 Yes (Active) M emoria TABS 6-11 l 02:06: [place] 24 Topiramate 2013-0 Yes (Active) Me moria 25 MG Oral 6-11 l Tablet 02:06: [place] 24 Vital Signs Vital Name Observation Time Observation Value Comments Source Respitory Rate 2016-11-11 12:12:00 Memori al [place] Systolic (mm Hg) 2016-11-11 12:12:00 Johnnie rial [place] Diastolic (mm Hg) 2016-11-11 12:12:00 Mem orial [place] Temperature Oral (F) 2016-11-11 12:12:00 98.3 F [facility] [place] Heart Rate 2016-11-11 12:12:00 [facility] [place] Temperature Oral (F) 2016-11-11 09:00:00 98.6 F [facility] [place] Respitory Rate 2016-11-11 09:00:00 Memori al [place] Heart Rate 2016-11-11 09:00:00 [facility] [place] Systolic (mm Hg) 2016-11-11 09:00:00 Johnnie rial [place] Diastolic (mm Hg) 2016-11-11 09:00:00 Mem orial [place] Heart Rate 2016-11-11 05:00:00 [facility] [place] Systolic (mm Hg) 2016-11-11 05:00:00 Johnnie rial [place] Diastolic (mm Hg) 2016-11-11 05:00:00 Mem orial [place] Respitory Rate 2016-11-11 05:00:00 Memori al [place] Temperature Oral (F) 2016-11-11 05:00:00 97.8 F [facility] [place] BMI Calculated 2016-11-10 08:39:00 [facility]ori al [place] Weight 2016-11-10 08:39:00 [facility] [place] Height 2016-11-10 08:39:00 170.18 cm [facility] [place] Respitory Rate 2016-10-09 22:35:00 Memori al [place] Systolic (mm Hg) 2016-10-09 22:30:00 Johnnie rial [place] Diastolic (mm Hg) 2016-10-09 22:30:00 Mem orial [place] Respitory Rate 2016-10-09 22:30:00 Memori al [place] Systolic (mm Hg) 2016-10-09 22:00:00 Johnnie rial [place] Diastolic (mm Hg) 2016-10-09 22:00:00 Mem orial [place] Respitory Rate 2016-10-09 22:00:00 Memori al [place] Systolic (mm Hg) 2016-10-09 21:55:00 Johnnie riajo [place] Diastolic (mm Hg) 2016-10-09 21:55:00 Mem orial [place] Heart Rate 2016-10-09 17:23:00 Yeny [place] BMI Calculated 2016-09-26 19:14:00 Memori al [place] Height 2016-09-26 19:14:00 170.18 cm [facility] Weight 2016-09-26 19:14:00 [facility] Procedures Procedure Date / Time Performed Performing Clinician Carolin e Bilateral breast implants Memori al [place] Bilateral [facility]aste[facility] [place] shunt or fistula for dialysis by external cannula [facility] Rem[facility] [place] [facility] n procedure<sup>1</sup> Plan of Care Planned Activity Planned Date Details Comments Source Future Scheduled 2020-02-09 INFLUENZA VACCINE (#1) [facility] Test 00:00:00 [code = INFLUENZA Medical Ce nter VACCINE (#1)] Future Scheduled 2020-01-09 INFLUENZA VACCINE [place] [facility] 00:00:00 [code = INFLUENZA VACCINE] Future Scheduled 2019 65+ PNEUMOCOCCAL [facility] Test 00:00:00 VACCINE (1 of 1 - PPSV23) [code = 65+ PNEUMOCOCCAL VACCINE (1 of 1 - PPSV23)] Future Scheduled 2019 PNEUMOCOCCAL 65+ YRS [facility] - Test 00:00:00 (1 of 1 - Medical Center [id number] PCV13) [code = PNEUMOCOCCAL 65+ YRS (1 of 1 - [id number] PCV13)] Future Scheduled 2012-11-18 Plan of Care [code = Mem orial [place] Test 02:06:24 67540-5] Future Scheduled 2012-09-25 Plan of Care [code = Mem orial [place] Test 00:09:12 21462-2] Future Scheduled 2012-08-25 Plan of Care [code = Mem orial [place] Test 21:39:37 12587-3] Future Scheduled 2012-08-06 Plan of Care [code = Mem orial [place] Test 22:03:58 03213-3] Future Scheduled 2012-08-04 Plan of Care [code = Mem orial [place] Test 19:54:47 70757-2] Future Scheduled 2005-12-[address] [facility] - Test 00:00:00 WELLNESS (YEAR 2 or [facility] FIRST YEAR if no IPPE) [code = MEDICARE ANNUAL WELLNESS (YEAR 2 or FIRST YEAR if no IPPE)] Future Scheduled 2004-02-15 BREAST CANCER [facility] Test 00:00:00 SCREENING [code = BREAST CANCER SCREENING] Future Scheduled 2004-02-15 COLONOSCOPY SCREENING [place] [facility] 00:00:00 [code = COLONOSCOPY SCREENING] Future Scheduled 2004-02-15 SHINGLES VACCINES (#1) [place] [facility] 00:00:00 [code = SHINGLES VACCINES (#1)] Future Scheduled 1964-02-15 DIABETES: RETINAL EYE [place] [facility] 00:00:00 EXAM [code = DIABETES: RETINAL EYE EXAM] Future Scheduled 1964-02-15 DIABETIC FOOT EXAM [place] [facility] 00:00:00 [code = DIABETIC FOOT EXAM] Future Scheduled 1964-02-15 URINE MICROALBUMIN [place] [facility] 00:00:00 [code = URINE MICROALBUMIN] Future Scheduled [address] [facility] Test 00:[facility]:00 [facility] (procedure) [code = 554772605] Future Scheduled [address] [facility] - Test 00:00:00 [facility] colon (procedure) [code = 785423227] Encounters Start End Encounter Admission Attending Care Care Encounter Source Date/Time Date/Time Type Type Clinicians Facility Department ID 2019-01-19 2019-01-19 Office WICHO Osuna [id number] 13:06:45 13:21:45 Visit Yara AMBULATOR [id number] Viviana Y [id number] 2016-11-10 2016-11-11 Outpatient Ismael [facility] [id number] 02:58:00 13:50:00 Randy 54 2016-10-09 2016-10-09 [id number] 05:34:00 17:50:00 Arash Bynum 2015-01-18 2015-01-18 Outpatient Kary OIP [facility] [id number] 16:28:00 23:59:00 Misa galan 2012-11-17 2012-11-17 Outpatient [facility] [place] [id number] 1 21:06:45 21:06:24 2012-09-24 2012-09-24 Outpatient MHIE [facility] [id number] 1 19:09:31 19:09:12 2012-08-25 2012-08-25 Outpatient MHIE IE [id number] 16:39:55 16:39:37 2012-08-06 2012-08-06 Outpatient MHIE MHIE [id number] 16:04:16 16:03:58 2012-08-04 2012-08-04 Outpatient MHIE IE [id number] 13:55:06 13:54:47 Results Test Description Test Time Test Comments Results Result Comments Source POCT-SODIUM 2018-07-09 12:25:00 Test Item Value Reference Range Interpretation Comme nts POC-SODIUM [facility] (test code = 139 meq/L 135-148 TESTED AT [place] [address] 1542) [place] [address] [id number]-[id number] 12:25:00 Test Item Value Reference Range Interpretation Comments POC-POTASSIUM 4.1 meq/L 3.6-5.5 TESTED AT [place] [address] ([facility]) (test code [facility] = 1540) [place] [address] 0 [id number] 12:25:00 Test Item Value Reference Range Interpretation Comments POC-BUN (AKER) 20 mg/dL 7-21 TESTED AT [place] [address] (test code = 2842) [place] [address] [id number] 12:25:00 Test Item Value Reference Range Interpretation Comments POC-CHLORIDE 101 meq/L 98-107 TESTED AT [place] [address] ([facility]) (test code [facility] = 2843) [place] [address] 0 [id number] 12:25:00 Test Item Value Reference Range Interpretation Comments POC-GLUCOSE ([facility]) 155 mg/dL 70-110 H TESTED AT [place] [address] (test code = 1855) [place] [address] 0 [id number] 12:25:00 Test Item Value Reference Range Interpretation Comments POC-HEMATOCRIT 37 % 36-45 TESTED AT [facility] ([facility]) (test code = [facility]57) [place] [id number] 12:25:00 Test Item Value Reference Range Interpretation Comments POC-HEMOGLOBIN 12.6 g/dL 12.0-15.0 TESTED AT [facility] ([facility]) (test code [facility] = 1856) [place] [address] 0TESTED AT [facility] 72 00 [facility] 770 0 CHEM [id number] 07:48:007[facility] HermannCHEM JZDJS4587-07-48 07:48:005.79 [facility]annCHEM JMRLS2131-55-81 07:48:0024[facility] HermannCHEM PANEL 2016-11-11 07:48:005.3[facility]annCHEM LSZXL8961-34-21 07:48:59150Qwzneffw HermannCHEM AXYFJ2682-10-37 07:48:67270Tlvseqen HermannCHEM RIINU3131-52-53 07:48:0038[facility] HermannCHEM OEASW1439-87-97 07:48:008.6[facility]annCHEM ZJDRR7654-91-05 07:48:36531Rvjjgpre HermannCHEM TGJKE4168-80-78 07:48:0020.3 Memorial YncgnxuQCFAGJKTCJ3509-63-55 07:48:0015.4[facility] HermannHEMATOLOGY 2016-11-11 07:48:008.7[facility] RvlarhgNTJIZWVOLA9382-96-47 07:48:93039Jzosqvmq IcsmiljWNGSFYIYFM2416-94-14 07:48:0027.0[facility]orial FbbcbgxFWJEHVZOMV9975-20-15 07:48:00 Test Item Value Reference Range Interpretation Comments MCH (test code = MCH) 32.1 pg 27.0-31.0 Memorial LjfsegiLITMHSAYBI4693-01-79 07:48:0097.5[facility] HermannHEMATOLOGY 2016-11-11 07:48:0032.9[facility] PztbzdoEOZPOHTKXU3922-46-91 07:48:006.4[facility] GcpnceaUTGVQSIYFF5580-02-73 07:48:002.76[facility] VayaznoCZDVUEAUST2441-30-71 07:48:008.9[facility] XuuwnerEHBGVNUARC4613-83-03 07:48:000.1[facility] [place] GOUOKFXKQZ9081-09-07 07:48:000.9[facility] JytufvvDUKPBVAUSU2082-61-72 07:48:000.7 Memorial XeapwqkIMHLMWWBEK1286-43-91 07:48:0014.1[facility] HermannHEMATOLOGY 2016-11-11 07:48:001.9[facility] AbdpdowRXOVRCMPMK6973-47-29 07:48:0010.7[facility] GqurhedZKFWPQDNJG8673-11-30 07:48:004.7[facility] WzuikrpXPKGLORBRH8058-52-75 07:48:000.7[facility] VgjxeujDCCARBXAUQ4625-17-73 07:48:0072.6[facility] HermannCHEM KZRYL4811-41-22 09:12:003.9[facility] HermannCHEM KCGXK7373-17-00 09:12:002.6 Memorial TrwqlnaYDAMVZQBEREZ6392-14-40 09:12:19142Blhnqurj HermannELECTROLYTES 2016-11-10 09:12:008.6[facility]orial XkqjefdYWCTALJRYHHP8721-15-47 09:12:004.8[facility] DoemixdTWJKSQMESRYE5021-93-27 09:12:05090Izuemckt DqjpryqOPBRNOSXJNRL3592-72-16 09:12:0029[facility] BruwfcdTTFNTOHXDRCX0348-49-12 09:12:000.7[facility] [place] TMEVDXBWLNVE5679-87-06 09:12:006.0[facility] AtqlrwbHFJMLPJVAPWB6703-48-40 09:12:61936Yocawmmd NlatvogLXHISHIBGYHH6697-18-55 09:12:0014[facility] [place] FUJRYJRKUZFE2751-16-53 09:12:0014[facility] FxrdwsuAITBLEYZWUYA5407-12-50 09:12:00 2.9[facility] BkeyplzGGXOOWVSRLCC7018-57-14 09:12:76774Mhuxcvnj [place] NFCNOKHICKLP4998-72-73 09:12:004.87[facility] UvznxbjUEOCPLPMUOMX3932-96-07 09:12:0028[facility] YdhuyqrNFHMKVBFNEYH1628-48-19 09:12:009[facility] [place] OTCDCSDNIOWL7305-17-31 09:12:0014.8[facility] MeofvjrXSRSQLZUBATW4131-00-51 09:12:000.9[facility] AxpnojzEPDTYGARJEPT9563-58-23 09:12:003.1[facility] [place] TYTDDXUSCUFD3454-45-82 09:12:006[facility] JrowfzlDWHKJTTJWN9541-28-34 09:12:006.1 Memorial PrbvjjxWGWZHRRTPN8520-83-17 09:12:0028.5[facility] HermannHEMATOLOGY 2016-11-10 09:12:0096.9[facility] BwfrwxyBZEUFFEWIY8999-06-83 09:12:002.94[facility] RytivpjVSUYVOSZGK0047-65-89 09:12:009.5[facility] RmtmyttUHIZABRLFM0691-92-71 09:12:0015.4[facility] YbkhishNSZOZDJORJ5933-84-95 09:12:07438Veedvhnj [place] GQUNPRGSTB0858-81-23 09:12:00 Test Item Value Reference Range Interpretation Comments MCH (test code = MCH) 32.1 pg 27.0-31.0 Memorial KsoelckLKVAXFZAET8707-41-52 09:12:0033.2[facility] HermannHEMATOLOGY 2016-11-10 09:12:008.6[facility] JgiyjjtBWCXJWMQQO2886-00-60 09:12:000.2[facility] JskumpcEOTOSBDMIF5024-12-69 09:12:001.2[facility] FsukwisOTNZGEKFRY4958-54-54 09:12:000.6[facility] BhxnxdkUUUTHEWAPO2465-50-35 09:12:003.7[facility] [place] KJJHMASYUQ8372-56-99 09:12:004.1[facility] YwtparuQVOTZMTRMV5367-68-44 09:12:000.7 Memorial TasyvwhVVXTRDSVYZ2708-94-14 09:12:009.3[facility] HermannHEMATOLOGY 2016-11-10 09:12:0019.5[facility] UcpjomfGYXNUHEVZG3145-91-62 09:12:0066.8[facility] ZquedgjVPOEQJEGAK1826-01-47 17:57:0011.6[facility]orial KutymxnWSYDIDVBTM7046-30-33 17:57:27114Ugbsacep AlujluhVLRMCEJWFG3376-19-42 17:57:004.8[facility] [place] PBKREUTYQK1673-24-67 17:57:0034.0[facility] BcmosymRTBNNUIMSY5999-79-62 17:57:00 137[facility] [place]
--- NOTE | 2020-03-30 18:33 | RAD REPORT ---
EXAM DESCRIPTION: RAD - Knee Right 3 View - 03/30/2020 6:02 pm CLINICAL HISTORY: Right knee pain status post injury FINDINGS: Limited evaluation medial and lateral tibial plateaus as BD is not completely extended on frontal and oblique views. No gross fracture. No dislocation Osteoporosis Moderate joint effusion
--- NOTE | 2020-03-30 18:55 | RAD REPORT ---
EXAM DESCRIPTION: Sondra Ortega Cont03/30/2020 6:23 pm CLINICAL HISTORY: Right knee pain status post injury COMPARISON: March 30, 2020 x-ray TECHNIQUE: Computed axial tomography of the right knee was obtained with coronal and sagittal recons truction. All CT scans are performed using dose optimization technique as appropriate and may include automated exposure control or mA/KV adjustment according to patient size. FINDINGS: Osteoporosis Moderate joint effusion No dislocation Cortical regularity involves the lateral tibial plateau with sclerosis. A fracture line is not seen IMPRESSION: Cortical regularity involves the lateral tibial plateau with sclerosis. This could indic ate a subtle fracture. However, a fracture line is not visualized. Moderate joint effusion If clinically indicated MRI would be helpful to confirm a fracture. In addition it can evaluate for l igament, tendon or meniscal injury
[2020-03-30] MEDS ORDERED: HYDROCODONE/APAP 7.5/325 MG TAB ONE (19:02)
--- NOTE | 2020-03-30 19:06 | ER ---
Nurse's Notes [facility] Name: Jens Hightower Age: 65 yrs Sex: Female : 1955 Arrival Date: 03/30/2020 Time: 17:25 Bed 13 Private MD: Diagnosis: Effusion, right knee;Pain in right knee Presentation: 03/30 17:25 Chief complaint: EMS states: "She was leaving dialysis today when she turned and heard jd3 a pop in her right knee. we established a 20 G IV to the left wrist and gave a total of 100 mcg of Fentanyl. Coronavirus screen: At this time, the client does not indicate any symptoms associated with coronavirus-19. Ebola Screen: Patient negative for fever greater than or equal to 101.5 degrees Fahrenheit, and additional compatible Ebola Virus Disease symptoms. Initial Sepsis Screen: Does the patient meet any 2 criteria? No. Patient's initial sepsis screen is negative. Does the patient have a suspected source of infection? No. Patient's initial sepsis screen is negative. Risk Assessment: Do you want to hurt yourself or someone else? Patient reports no desire to harm self or others. Onset of symptoms was March 30, 2020. 17:25 Method Of Arrival: EMS: [facility] jd3 17:25 Acuity: BRANDON 3 jd3 Historical: - Allergies: 17:27 PENICILLINS; jd3 - PMHx: 17:27 Fibula Shaft Fracture; Thyroid problem; Tibial Shaft Fracture; Diabetes - IDDM; chronic jd3 renal failure; Hypertension; Dialysis; - Immunization history:: Adult Immunizations up to date. - Social history:: Smoking status: Patient/guardian denies using tobacco, the patient reports quitting approximately 17 years ago. Screenin:29 Abuse screen: Denies threats or abuse. Nutritional screening: No deficits noted. jd3 Tuberculosis screening: No symptoms or risk factors identified. Fall Risk Ambulatory Aid- None/Bed Rest/Nurse Assist (0 pts). Gait- Normal/Bed Rest/Wheelchair (0 pts) Mental Status- Oriented to own ability (0 pts). Total Dhaliwal Fall Scale indicates No Risk (0-24 pts). Assessment: 17:28 General: Appears in no apparent distress. comfortable, Behavior is calm, cooperative, jd3 appropriate for age. Pain: Complains of pain in right knee Quality of pain is described as sharp, tender. Neuro: Level of Consciousness is awake, alert, obeys commands, Oriented to person, place, time, situation. Cardiovascular: Denies chest pain, Capillary refill < 3 seconds Patient's skin is warm and dry. Respiratory: Airway is patent Respiratory effort is even, unlabored, Respiratory pattern is regular, symmetrical, Denies cough, shortness of breath. GI: No signs and/or symptoms were reported involving the gastrointestinal system. : No signs and/or symptoms were reported regarding the genitourinary system. EENT: No signs and/or symptoms were reported regarding the EENT system. Derm: Skin is intact, Skin is dry, Skin is normal, Skin temperature is warm. Musculoskeletal: Circulation, motion, and sensation intact. Range of motion: intact in all extremities. 18:41 Reassessment: Patient appears in no apparent distress at this time. No changes from [facility] previously documented assessment. Patient and/or family updated on plan of care and expected duration. Pain level reassessed. Patient is alert, oriented x 3, equal unlabored respirations, skin warm/dry/pink. Vital Signs: 17:28 BP 165 / 55; Pulse 79; Resp 17 S; Temp 98.3(O); Pulse Ox 95% on 2 lpm NC; Weight 58.97 jd3 kg (R); Height 5 ft. 6 in. (167.64 cm) (R); Pain 5/10; 18:42 BP 164 / 58; Pulse 75; Resp 17 S; Pulse Ox 97% on 2 lpm NC; jd3 17:28 Body Mass Index 20.98 (58.97 kg, 167.64 cm) [facility] ED Course: 17:25 Patient arrived in ED. jd3 17:27 Triage completed. jd3 17:28 Arm band placed on. jd3 17:29 Patient has correct armband on for positive identification. Bed in low position. Call [facility] light in reach. Side rails up X 1. Adult w/ patient. Pulse ox on. NIBP on. 17:29 Maintain EMS IV. Dressing intact. Good blood return noted. Site clean \\T\\ dry. Gauge \\T\\ reyna 3 site: 20 G left wrist. 17:31 Lionel Cohen PA is PHCP. cp 17:31 Lionel Porras MD is Attending Physician. cp 18:03 XRAY Knee RIGHT 3 view In Process Unspecified. EDMS 18:23 Knee Right Wo Cont In Process Unspecified. EDMS 18:40 Rigoberto Garcia, RN is Primary Nurse. jd3 19:05 José Katz MD is Referral Physician. cp Administered Medications: 18:50 Drug: [place] (7.5 mg-325 mg) 1 tabs Route: PO; jd3 Outcome: 19:05 Discharge ordered by . cp 19:35 Patient left the ED. bb Signatures: Dispatcher [employer] EDTrang Cervantes RN RN bb Lionel Cohen PA PA cp Rigoberto Garcia, RN RN jd3
--- NOTE | 2020-03-30 19:06 | EDPHYS ---
Physician Documentation [facility] Name: Jens Hightower Age: 65 yrs Sex: Female : 1955 Arrival Date: 03/30/2020 Time: 17:25 Bed 13 Private MD: ED Physician Lionel Porras HPI: 03/30 17:35 This 65 yrs old Female presents to ER via EMS with complaints of Right Knee cp Pain. 17:35 The patient presents with decreased range of motion, an injury, pain, that is acute, cp swelling. The complaints affect the right knee. 17:35 Context: Patient reports she was walking and went to turn and pivot on right leg, felt cp "pop" in right knee and started having pain and swelling. 17:35 Onset: The symptoms/episode began/occurred just prior to arrival, today. Associated cp signs and symptoms: Pertinent positives: swelling, weakness, of the right knee, Pertinent negatives calf tenderness, fever, warmth. Historical: - Allergies: 17:27 PENICILLINS; jd3 - PMHx: 17:27 Fibula Shaft Fracture; Thyroid problem; Tibial Shaft Fracture; Diabetes - IDDM; chronic jd3 renal failure; Hypertension; Dialysis; - Immunization history:: Adult Immunizations up to date. - Social history:: Smoking status: Patient/guardian denies using tobacco, the patient reports quitting approximately 17 years ago. ROS: 17:45 Constitutional: Negative for body aches, chills, fever. cp 17:45 Cardiovascular: Negative for chest pain. cp 17:45 Respiratory: Negative for cough, shortness of breath. 17:45 Abdomen/GI: Negative for abdominal pain, nausea, vomiting, and diarrhea. 17:45 Back: Negative for pain at rest, pain with movement. 17:45 MS/extremity: Positive for decreased range of motion, pain, swelling, tenderness, of the right knee, Negative for deformity, paresthesias. 17:45 All other systems are negative. Exam: 17:50 Constitutional: The patient appears in no acute distress, alert, awake, well developed, cp well nourished, uncomfortable. 17:50 Head/Face: Normocephalic, atraumatic. cp 17:50 Chest/axilla: Inspection: normal. cp 17:50 Cardiovascular: Rate: normal. 17:50 Respiratory: the patient does not display signs of respiratory distress, Respirations: normal, no use of accessory muscles, labored breathing, is not present. 17:50 Abdomen/GI: Inspection: abdomen appears normal. 17:50 Musculoskeletal/extremity: Perfusion: the extremity is normally perfused throughout, Severe pain noted. Joints: All joints are normal except the right knee displays limited range of motion, painful range of motion, swelling, medial joint line and posterior tenderness. 17:50 Skin: no rash present. 17:50 Neuro: Orientation: to person, place \\T\\ time. Mentation: is normal. Vital Signs: 17:28 BP 165 / 55; Pulse 79; Resp 17 S; Temp 98.3(O); Pulse Ox 95% on 2 lpm NC; Weight 58.97 jd3 kg (R); Height 5 ft. 6 in. (167.64 cm) (R); Pain 5/10; 18:42 BP 164 / 58; Pulse 75; Resp 17 S; Pulse Ox 97% on 2 lpm NC; jd3 17:28 Body Mass Index 20.98 (58.97 kg, 167.64 cm) jd3 MDM: 17:33 Patient medically screened. leroy 19:00 Differential diagnosis: dislocation, closed fracture, ligament injury. cp 19:05 Data reviewed: vital signs, nurses notes, radiologic studies, CT scan, plain films, and cp as a result, I will discharge patient. 19:05 Counseling: I had a detailed discussion with the patient and/or guardian regarding: the cp historical points, exam findings, and any diagnostic results supporting the discharge/admit diagnosis, radiology results, the need for outpatient follow up, a orthopedic surgeon, to return to the emergency department if symptoms worsen or persist or if there are any questions or concerns that arise at home. Response to treatment: Pain markedly improved. Will discharge to home for continued monitoring. 03/30 17:33 Order name: XRAY Knee RIGHT 3 view; Complete Time: 19:07 cp 03/30 19:07 Interpretation: Report reviewed. cp 03/30 18:11 Order name: Knee Right Wo Cont; Complete Time: 19:07 EDMS 03/30 19:07 Interpretation: Report Reviewed. cp 03/30 18:59 Order name: Crutches; Complete Time: 19:17 cp Administered Medications: 18:50 Drug: Clark (7.5 mg-325 mg) 1 tabs Route: PO; jd3 Disposition: 19:15 Chart complete. cp 03/31 10:49 Co-signature as Attending Physician, Lionel Porras MD I agree with the assessment and leroy plan of care. Disposition: 03/30/20 19:05 Discharged to Home. Impression: Effusion, right knee, Pain in right knee. - Condition is Stable. - Discharge Instructions: Knee Effusion, Knee Immobilizer, Knee Pain. - Prescriptions for Tylenol- Codeine #3 300-30 mg Oral Tablet - take 2 tablets by ORAL route every 6 hours As needed; 20 tablet. - Medication Reconciliation Form, Thank You Letter, Antibiotic Education, Prescription Opioid Use form. - Follow up: José Katz MD; When: 1 - 2 days; Reason: Recheck today's complaints. - Problem is new. - Symptoms have improved. Signatures: Dispatcher [employer] EDPA Lionel Porras MD MD cha Ballard, Brenda, RN RN Lionel Rowe PA PA cp Davies, Jonathon RN RN jd3 Corrections: (The following items were deleted from the chart) 03/30 18:11 18:07 CT RIGHT KNEE WO CONTRAST ordered. EDPA EDPA 19:35 19:05 03/30/2020 19:05 Discharged to Home. Impression: Effusion, right knee; Pain in bb right knee. Condition is Stable. Forms are Medication Reconciliation Form, Thank You Letter, Antibiotic Education, Prescription Opioid Use. Follow up: José Katz; When: 1 - 2 days; Reason: Recheck today's complaints. Problem is new. Symptoms have improved. cp
[2020-03-30 20:25] VITALS: TEMP 98.3
[2020-03-30 20:27] VITALS: BP 164/58; O2SAT 97
== END 2020-03-30 19:35 | disposition home or self-care (01) ==
LOC: ER 17:14
DX: M25.461 Effusion, right knee (principal); I10 Essential (primary) hypertension; Z88.0 Allergy status to penicillin
CPT/HCPCS: 73700; 99284

== ENCOUNTER 2020-04-04 13:42 | Inpatient (IN) | payer OTHER ==
--- OUTSIDE RECORDS SUMMARY | 2020-04-04 13:48 | XMS REPORT | Clinical Summary ---
:1955 Author Organization [facility] Address [address] [place] [address] Care Team Providers Name Role Phone Unavailable [...] InPn (three) times daily with meals. omega [id number] Take by mouth. 0 Active oil (FISH [...] PNEUMOCOCCAL 65+ YRS (1 of 1 - [id number]) 2019 INFLUENZA VACCINE (#1) 2020 Implants Implanted Type Area Director Product Device Shelf Model / Identifier Expiration Date Ser ial / Lot Tissue Memb Amniogrft 2.5x2.0 Ag-[id number] - [id number] IMPLAN TS Right: BIO-TISSUE 01/01/2020 [id number] / Implanted: Qty: 1 on 07/09/2018 by Craig Jones MD at [facility] [place] Eye 18A [id number] / N/A Results Not on fileafter 04/04/2019 Insurance Payer Benefit Plan / Subscriber ID Effective Dates Phone Addre ss Type Group MEDICARE MEDICARE A B [id number] 2004-Present Medicare OTHER-[employer] GENER[employer] [id number] 2018-Present L COMMERCIAL
--- OUTSIDE RECORDS SUMMARY | 2020-04-04 13:48 | XMS REPORT | Clinical Summary ---
:1955 Author Organization [facility] Address [address] [place] [address] Care Team Providers Name Role Phone Melchor [...] Right big toe INSERTION, IMPLANT OR TISSUE REGIONAL FORESTER, BREAST, FOR RECONSTRUCTION CATARACT EXTRACTION TRANSPLANTATION, KIDNEY [...] INFLUENZA VACCINE 01/09/2020 Results Not on fileafter 04/04/2019 Insurance Payer Benefit Plan / Subscriber ID Effective Dates Phone Addre ss Type Group MEDICARE MEDICARE PART A [id number] 2004-Present MASHA HUNTER Medicare AND B [facility] [id number] 2016-Present Com Candescent [employer] SUPPLEMENT
--- OUTSIDE RECORDS SUMMARY | 2020-04-04 13:50 | XMS REPORT | Continuity of Care Document ---
:1955 Author Organization [facility] Information [place] Care Team Providers Name Role Phone [facility] Information Exchange Unavailable Un available Problems Problem Status Onset Classification Date Comments Sourc e Date Reported BREAST IMPLANT Active 11/11/19 Me morial HEMATOMA 17 [place] POSTTRAMATIC Active 11/11/19 Johnnie rial HEMATOMA OF 17 [place] LEFT BREST [id number], Active 09/14/19 Memoria l [id number] [place] [address] HISTORYOF BREAST AUGME End Stage Renal Active 11/18/2012 [facility] Diabetes Active 11/18/2012 [facility] Complication Chronic Kidney Active 11/18/2012 [facility] Malignant Hypertension Absence of Resolved Problem 11/14/2016 Memor ial breast [facility] (finding) Diabetes Active Problem 11/14/2016 Memori al mellitus [place] (disorder) Disease of Active Problem 11/14/2016 Memor ial thyroid gland [facility] (disorder) End stage renal Active Problem 11/14/2016 [facility] disease on [facility] dialysis due to type 1 diabetes mellitus (disorder) Hypertensive Active Problem 11/14/2016 [facility] orial disorder, [place] systemic arterial (disorder) Malignant tumor Resolved Problem 11/14/2016 [facility] of breast [place] (disorder) ILLNESS, Active Memoria l UNSPECIFIED [place] CONTUSION OF Active Johnnie rial LEFT BREAST, [place] INITIAL ENCOUN Medications Medication Details Route Status Patient Ordering Order Source Instructions Provider Date bifidobacterium- 1 tab, CHEW, Active 11/11/ [facility] lactobacillus Daily, # 30 2016 [facility] oral tablet, tab, 0 chewable Refill(s) clindamycin 150 150 mg = 1 cap, Active 11/11/ [facility] mg oral capsule PO, Q6H, X 14 2017 Ci ty day, # 56 cap, 0 Refill(s) Pravastatin Notes: (Same No Longer 11/11/ [facility] morial as: Pravachol) Active 2016 [facility] Isosorbide Notes: (Same No Longer 11/11/ [facility] orial as:Imdur) Do Active 2016 not [...] No Longer Memor ial as:MORPhine Active 2016 [facility] Sulfate) Acetaminophen Notes: Same as No Longer [facility] 325 MG / [place] 325-7.5mg Active 2016 Hydrocodone Do not exceed Bitartrate 7.5 4gm/day of MG Oral Tablet acetaminophen. ondansetron Route: IV, Drug Inactive [facility] (ANES) form: INJ, 2016 [facility] , Stop date: 11/10/16 12:56:00 CDT acetaminophen Route: IV, Drug Inactive [facility] (ANES) form: INJ, 2016, Stop date: 11/10/16 12:26:00 CDT famotidine Route: IV, Drug Inactive [facility] (ANES) form: , 2016 [facility] , Stop date: 11/10/16 12:26:00 CDT Cleocin Route: IV, Drug Inactive Johnnie rial Phosphate (ANES) form: 2016 + sodium ONCE, Stop chloride 0.9% date: 11/10/16 100 ml INJ 12:21:00 CDT (ANES) ePHEDrine (ANES) Route: IV, Drug Inactive [facility] form: INJ, 2016 ONCE, Stop date: 11/10/16 12:21:00 CDT fentaNYL (ANES) Route: IV, Drug Inactive [facility] form: , 2016 [facility] , Stop date: 11/10/16 12:21:00 CDT propofol (ANES) Route: IV, Drug Inactive [facility] form: 2016 [facility] , Stop date: 11/10/16 12:21:00 CDT midazolam (ANES) Route: IV, Drug Inactive [facility] form: SOLN, 2016 ONCE, Stop date: 11/10/16 12:21:00 CDT succinylcholine Route: IV, Drug Inactive [facility] (ANES) form: INJ, 2016 [facility] ONCE, Stop date: 11/10/16 12:11:00 CDT Diphenhydramine Notes: (Same Inactive 11/10[facility] as: Benadryl) 2016 [facility] Naloxone Notes: Same as [facility] Flumazenil Notes: (Same [facility] as: Romazicon) [address] [place] [address] Morphine Notes: (Same [facility]MOR[facility]ine 2016 [facility] Sulfate) Hydromorphone Notes: Same as Inactive 11/10[facility] Dilaudid 2016 [facility] Meperidine Notes: (Same [facility] as: Demerol) [address] [place] [address] "Use Precaution in Elderly, Seizure disorders, and Renal impairment&quot ; Ondansetron Notes: (Same Inactive [facility] orial as: Zofran) [address] [place] [address] MEDICATION WASTE Product Size: 4 mg Product Wasted: ___ mg Promethazine Notes: Do not Inactive [facility] emorial give IV push. 2016 [facility] (Same as: Phenergan) sodium chloride Route: IV, Inactive [facility] emorial 0.9% 1000 ml INJ Total Volume: 2016 C ity (ANES) 1,000, Start date: 11/10/16 11:17:00 CDT, Stop date: 11/10/16 12:17:00 CDT Docusate Notes: (Same [facility] Long[facility]) (Do Active 2016 [facility] Not Crush) Hydralazine Notes: (Same No Longer Me morial Hydrochloride as: Apresoline) Active 2016 Ci ty 100 MG Oral May interfere Tablet w/enteral feedings Take With Food Esomeprazole 40 mg, Route: Inactive [facility] emorial PO, Drug form: [address] [place] [address] ECCAP, Daily, Dosing Weight 58.818, kg, Start date: 11/10/16 9:00:00 CDT, Duration: 30 day, Stop date: 12/09/16 9:00:00 CDT Coreg Notes: Give No Longer Memoria l with food. Active 2016 [facility] (Same As: Coreg) Renvela Notes: Same as: No Longer Mem orial Renvela Active 2016 [facility] Synthroid Notes: Take 1 No Longer Mem orial hour before or 2016 [facility] 2 hours after meal; Enteral feeds may interefere with the absorption of this medication. (Same as:Synthroid, Levothroid) Hugo Notes: (Same No Longer Memori al as: Cytomel) 2016 [facility] Glucagon 1 mg, Route: [facility] 2016 [facility] PDR/INJ, PRN, Dosing Weight 58.818, kg, PRN Blood Glucose Results, Start date: 11/10/16 3:25:00 CDT, Duration: 30 day, Stop date: 12/10/16 3:24:00 CDT Dextrose 50% 25 gm, 50 mL, No Longer [facility] Syringe Route: IVP, 2016 [facility] Drug Form: INJ, Dosing Weight 58.818, kg, PRN, PRN Blood Glucose Results, Start date: 11/10/16 3:25:00 CDT, Duration: 30 day, Stop date: 12/10/16 3:24:00 CDT Insulin, Aspart, Notes: Roll in No Longer [facility] Human palms of hands [facility] 2016 [facility] gently; Do not shake vigorously. (Same as: NovoLOG) "single patient use only" WASTE: F/P - Black; E - Municipal Trash Bin Stable for 28 days at room temperature. Expires in days from D ate Sodium Chloride 25 mL, Route: No Longer [facility] 0.9% IV IV, Start date: [facility] 2016 [facility] 11/10/16 3:07:00 CDT, Duration: 30 day, Stop date: 12/10/16 3:06:00 CDT, PRN Line Flush BD Normal Saline Notes: (Same No Longer [facility] Flush as: BD Active 2016 [facility] Posiflush) Acetaminophen Notes: (Same Inactive [facility] 325 MG / as: [place] 2016 [facility] Hydrocodone 325/5) Do not Bitartrate 5 MG exceed 4gm/day Oral Tablet of acetaminophen. Morphine Notes: (Same No Longer Memor ial as:MORPhine Active 2016 [facility] Sulfate) Acetaminophen Notes: Do not No Longer [facility] exceed 4 Active 2016 [facility] gm/day. (Same as: Tylenol) Ondansetron Notes: (Same No Longer [place] morial as: Zofran) Active 2016 [facility] MEDICATION WASTE Product Size: 4 mg Product Wasted: ___ mg ondansetron Route: IV, Drug Inactive [facility] (ANES) form: 2016 [facility] , Stop date: 10/09/16 16:09:00 CDT fentaNYL (ANES) Route: IV, Drug Inactive [facility] form: 2016 [facility] , Stop date: 10/09/16 16:09:00 CDT EPINEPHrine Route: IV, Drug Inactive [facility] (ANES) form: 2016 [facility] , Stop date: 10/09/16 14:53:00 CDT midazolam (ANES) Route: IV, Drug Inactive [facility] form: SOLN, 2016, Stop date: 10/09/16 14:43:00 CDT lidocaine (ANES) Route: IV, Drug Inactive [facility] form: 2016 [facility] , Stop date: 10/09/16 14:43:00 CDT Cleocin Route: IV, Drug Inactive Johnnie rial Phosphate (ANES) form: 2016, Stop date: 10/09/16 14:32:00 CDT dexamethasone Route: IV, Drug Inactive [facility] (ANES) form: 2016 [facility] , Stop date: 10/09/16 14:27:00 CDT propofol (ANES) Route: IV, Drug Inactive 10/09/ [facility] form: 2016 [facility] , Stop date: 10/09/16 14:27:00 CDT ePHEDrine (ANES) Route: IV, Drug Inactive [facility] form: 2016 [facility] , Stop date: 10/09/16 14:27:00 CDT fentaNYL (ANES) Route: IV, Drug Inactive [facility] form: INJ, 2016 [facility] ONCE, Stop date: 10/09/16 14:27:00 CDT sodium chloride Route: IV, Inactive [facility] emorial 0.9% 1000 ml INJ Total Volume: 2016 C ity (ANES) 1,000, Start date: 10/09/16 13:22:00 CDT, Stop date: 10/09/16 14:22:00 CDT Exparel Notes: ([facility] 2016 [facility] NOT FOR IV use Postoperative analgesia: Infiltration [...] [266 mg]) Midazolam 1 mg, Route: [facility]active [facility], Q5Min, 2016 [facility] Dosing Weight 55.483, kg, PRN Anxiety, Start date: 10/09/16 12:41:00 CDT, Duration: 2 doses or times, Stop date: Limited # of times Promethazine 6.25 mg, Route: Inactive [facility] IVPB, ONCE, 2016 [facility] Dosing Weight 55.483, kg, PRN Nausea & Vomiting, Start date: 10/09/16 12:41:00 CDT Dexamethasone 4 mg, Route: Inactive [facility] emorial IVP, ONCE, 2016 [facility] Dosing Weight 55.483, kg, PRN Nausea & Vomiting, Start date: 10/09/16 12:41:00 CDT Lorazepam 0.5 mg, Route: Inactive 10/09[facility] orial IVP, Q20Min, 2016 [facility] Dosing Weight 55.483, kg, PRN Anxiety, Start date: 10/09/16 12:41:00 CDT, Duration: 3 doses or times, Stop date: Limited # of times 72 HR Notes: Change Inactive Shakaori al Scopolamine patch every 72 2016 [facility] 0.0139 MG/HR hours (Same Transdermal as: Patch Transderm-Scop) Ondansetron 4 mg, Route: Inactive [facility] orial IVP, ONCE, 2016 [facility] Dosing Weight 55.483, kg, PRN Nausea & Vomiting, Start date: 10/09/16 12:41:00 CDT Meperidine 12.5 mg, Route: Inactive [facility] emorial IVP, Q30Min, 2016 [facility] Dosing Weight 55.483, kg, PRN Other -See Comment, For shivering, Start date: 10/09/16 12:41:00 CDT, Duration: 2 doses or times, Stop date: Limited # of times Albuterol 0.83 2.49 mg, Route: Inactive 10/09[facility] MG/ML Inhalant NEB, PRN, 2016 [facility] Solution Dosing Weight 55.483, kg, PRN Respiratory Protocol, Start date: 10/09/16 12:41:00 CDT, Duration: 30 day, Stop date: 11/08/16 12:40:00 CDT 200 ACTUAT Notes: Inactive [facility] Albuterol 0.09 Albuterol 90 2016 [facility] MG/ACTUAT microgram/inh Metered Dose 8gm HFA WASTE: Inhaler Aerosol - Return to Pharmacy Same as: Fozia Mosley Morphine 2 mg, Route: Inactive Caterina al IVP, Q5Min, 2016 [facility] Dosing Weight 55.483, kg, PRN Pain Score 4-6, Start date: 10/09/16 12:41:00 CDT, Duration: 5 doses or times, Stop date: Limited # of times Diphenhydramine 12.5 mg, Route: Inactive 10/09[facility] IVP, Drug form: 2016 [facility] INJ, Q6H, Dosing Weight 55.483, kg, PRN Itching, Start date: 10/09/16 12:41:00 CDT, Duration: 30 day, Stop date: 11/08/16 12:40:00 CDT Racepinephrine 0.5 mL, Route: Inactive 10/09[facility] NEB, Dosing 2017 [facility] Weight 55.483, kg, PRN, PRN Shortness of breath, Start date: 10/09/16 12:41:00 CDT, Duration: 30 day, Stop date: 11/08/16 12:40:00 CDT Flumazenil 0.2 mg, Route: Inactive 10/09[facility] Me morial IVP, PRN, 2016 [facility] Dosing Weight 55.483, kg, PRN Benzodiazepine Reversal, Initial dose, Start date: 10/09/16 12:41:00 CDT, Duration: 30 day, Stop date: 11/08/16 12:40:00 CDT Ephedrine 5 mg, Route: Inactive Memor ial IVP, Q5Min, 2016 [facility] Dosing Weight 55.483, kg, PRN Low Blood Pressure, Start date: 10/09/16 12:41:00 CDT, Duration: 30 day, Stop date: 11/08/16 12:40:00 CDT Naloxone 0.4 mg, Route: Inactive 10/09[facility] Johnnie rial IVP, Q2MIN, 2016 [facility] Dosing Weight 55.483, kg, PRN Narcotic Reversal, Start date: 10/09/16 12:41:00 CDT, Duration: 8 doses or times, Stop date: Limited # of times Ketorolac 4 days Inactive 10/09[facility] Johnnie rial MEDICATION [address] [place] [address] WASTE Product Size: 30 mg Product Wasted: 15 mg Acetaminophen 1,000 mg, Inactive 10/09[facility] Johnnie rial Route: PO, Drug 2016 [facility] form: TAB, ONCE, Dosing Weight 55.483, kg, PRN Pain Score 1-3, Start date: 10/09/16 12:41:00 CDT, Duration: 1 doses or times, Stop date: Limited # of times esmolol 10 mg, Route: Inactive 10/09[facility] Memori al IVP, Q5Min, 2016 [facility] Dosing Weight 55.483, kg, PRN Other -See Comment, Start date: 10/09/16 12:41:00 CDT, Duration: 5 doses or times, Stop date: Limited # of times ANES Enalaprilat 0.625 mg, Inactive 10/09[facility] M emorial Route: IVP, 2016 [facility] Q5Min, Dosing Weight 55.483, kg, PRN Elevated BP, Start date: 10/09/16 12:41:00 CDT, Duration: 4 doses or times, Stop date: Limited # of times Labetalol 10 mg, Route: Inactive Johnnie rial IVP, Q5Min, 2016 [facility] Dosing Weight 55.483, kg, PRN Elevated BP, Start date: 10/09/16 12:41:00 CDT, Duration: 5 doses or times, Stop date: Limited # of times Metoprolol 1 mg, Route: Inactive Johnnie rial IVP, Q5Min, 2016 [facility] Dosing Weight 55.483, kg, PRN Other -See Comment, Start date: 10/09/16 12:41:00 CDT, Duration: 5 doses or times, Stop date: Limited # of times Hydralazine 10 mg, Route: Inactive [facility] morial IVP, Q20Min, 2016 [facility] Dosing Weight 55.483, kg, PRN Elevated BP, Start date: 10/09/16 12:41:00 CDT, Duration: 2 doses or times, Stop date: Limited # of times Hydromorphone 0.5 mg, Route: Inactive [facility] IVP, Q5Min, 2016 [facility] Dosing Weight 55.483, kg, PRN Pain Score 7-10, Start date: 10/09/16 12:41:00 CDT, Duration: 4 doses or times, Stop date: Limited # of times Clindamycin Notes: (Same Inactive [facility] orial As: Cleocin) 2016 [facility] Sodium Chloride 500 mL, Route: Inactive [facility] 0.154 MEQ/ML IV, ONCE, 2016 [facility] Injectable Dosing Weight Solution 55.483 kg, Start date: 10/09/16 12:21:00 CDT, Stop date: 10/09/16 12:21:00 CDT, Bolus NovoLog See Active [facility] Instructions, 0 2016 [facility] Refill(s) sevelamer 800 mg = 1 tab, Active [facility] orial carbonate 800 MG PO, TID-Meals, 2017 [facility] Oral Tablet # 90 tab, 0 [Renvela] Refill(s) Esomeprazole 40 40 mg = 1 cap, Active [facility] MG Enteric PO, Daily, # 30 2017 [facility] Coated Capsule cap, 0 Refill(s) Levothyroxine 75 microgram = Active [facility] Sodium 0.075 MG 1 tab, PO, 2017 [facility] Oral Tablet Daily, # 30 [Synthroid] tab, 1 Refill(s) Hydralazine 100 mg = 1 tab, Active [facility] emorial Hydrochloride PO, BID, # 60 2016 [place] 100 MG Oral tab, 0 Tablet Refill(s) pravastatin 20 20 mg = 1 tab, Active [facility] mg oral tablet PO, Bedtime, # 2017 Ci ty 30 tab, 0 Refill(s) carvedilol 25 MG 25 mg = 1 tab, Active [facility] Oral Tablet PO, BID, # 60 2017 [place] [Coreg] tab, 0 Refill(s) isosorbide 120 mg = 2 tab, Active [facility] morial mononitrate 60 PO, QPM, 0 2016 [place] mg oral tablet, Refill(s) extended release liothyronine 50 microgram = Active [facility] emorial sodium 0.05 MG 1 tab, PO, 2017 [facility] Oral Tablet Daily, # 30 [Cytomel] tab, 0 Refill(s) losartan 50 mg 50 mg = 1 tab, Active [facility] oral tablet PO, BID, 0 2016 [facility] Refill(s) 24 HR Nifedipine 90 mg = 1 tab, Active [facility] 90 MG Extended PO, BID, # 90 [...] ource type Reported Penicillins drug drug Active [place] allergy allergy Physicia ns penicillins Assertion Drug Active [facility] Immunizations No Data Provided for This Section Results Order Name Results Value Reference Date Interpretation Comments Barbara rce Range CHEM PANEL eGFR 7 11/11 Result Comment: [facility] eGFR is [place] calculated using the CKD-EPI [...] 5.79 0.50 - 11/11 Lvl 1.40 /2016 [facility] CHEM PANEL CO2 24 24 - 32 11/11 [facility] CHEM PANEL Potassium Lvl 5.3 3.5 - 5.1 11/11 [facility] CHEM PANEL Chloride Lvl 100 95 - 109 11/11 [facility] CHEM PANEL Sodium Lvl 139 135 - 145 11/11 [facility] CHEM PANEL BUN 38 7 - 22 11/11 [facility] CHEM PANEL Calcium Lvl 8.6 8.5 - 10.5 06/04 /2016 [facility] CHEM PANEL Glucose Lvl 148 70 - 99 06/ /2016 [facility] CHEM PANEL AGAP 20.3 10.0 - 06/ MH 20.0 /2016 [facility] HEMATOLOGY RDW 15.4 11.5 - 06/ MH 14.5 /2016 [facility] HEMATOLOGY MPV 8.7 7.4 - 10.4 06/ /2016 [facility] HEMATOLOGY Platelet 217 133 - 450 06/ /2016 [facility] HEMATOLOGY Hct 27.0 36.0 - 06/04 MH 48.0 /2016 [facility] HEMATOLOGY MCH 32.1 27.0 - 06/04 MH 31.0 /2016 [facility] HEMATOLOGY MCV 97.5 80.0 - 06 MH 98.0 /2016 [facility] HEMATOLOGY MCHC 32.9 32.0 - 06/ MH 36.0 /2016 [facility] HEMATOLOGY WBC 6.4 3.7 - 10.4 06/ /2016 [facility] HEMATOLOGY RBC 2.76 4.20 - 11/11 MH 5.40 /2016 [facility] HEMATOLOGY Hgb 8.9 12.0 - 06/ MH 16.0 /2016 [facility] HEMATOLOGY Eosinophils # 0.1 0.0 - 0.5 06/ [facility] HEMATOLOGY Lymphocytes # 0.9 1.0 - 5.5 06/ [facility] HEMATOLOGY Monocytes # 0.7 0.0 - 0.8 06/ [facility] HEMATOLOGY Lymphocytes 14.1 20.0 - 06/ MH 40.0 /2016 [facility] HEMATOLOGY Eosinophils 1.9 0.0 - 4.0 06/ [facility] HEMATOLOGY Monocytes 10.7 2.0 - 12.0 06/ [facility] HEMATOLOGY Segs-Bands # 4.7 1.5 - 8.1 06/ [facility] HEMATOLOGY Basophils 0.7 0.0 - 1.0 06/ [facility] HEMATOLOGY Segs 72.6 45.0 - 06/04 MH 75.0 /2016 [facility] CHEM PANEL Phosphorus 3.9 2.5 - 4.5 06 [facility] CHEM PANEL Magnesium Lvl 2.6 1.8 - 2.4 11/10 [facility] ELECTROLYTES Chloride Lvl 102 95 - 109 06 [facility] ELECTROLYTES Calcium Lvl 8.6 8.5 - 10.5 11/10 [facility] ELECTROLYTES Potassium Lvl 4.8 3.5 - 5.1 11/10 [facility] ELECTROLYTES Sodium Lvl 141 135 - 145 11/10 [facility] ELECTROLYTES CO2 29 24 - 32 11/10 [facility] ELECTROLYTES Bili Total 0.7 0.2 - 1.3 11/10 [facility] ELECTROLYTES Total Protein 6.0 6.4 - 8.4 11/10 [facility] ELECTROLYTES Alk Phos 164 39 - 136 11/10 [facility] ELECTROLYTES AST 14 0 - 37 11/10 [facility] ELECTROLYTES ALT 14 0 - 65 11/10 [facility] ELECTROLYTES Albumin Lvl 2.9 3.5 - 5.0 11/10 [facility] ELECTROLYTES Glucose Lvl 153 70 - 99 11/10 [facility] ELECTROLYTES Creatinine 4.87 0.50 - 11/10 Lvl 1.40 [facility] ELECTROLYTES BUN 28 7 - 22 11/10 [facility] ELECTROLYTES eGFR 9 11/10 Comment: [facility] eGFR is [place] calculated using the CKD-EPI [...] 14.8 10.0 - 06 MH 20.0 /2016 [facility] ELECTROLYTES A/G Ratio 0.9 0.7 - 1.6 11/10 [facility] ELECTROLYTES Globulin 3.1 2.7 - 4.2 11/10 [facility] ELECTROLYTES B/C Ratio 6 6 - 25 06/ /2016 [facility] HEMATOLOGY WBC 6.1 3.7 - 10.4 06/ [facility] HEMATOLOGY Hct 28.5 36.0 - 11/10 MH 48.0 /2016 [facility] HEMATOLOGY MCV 96.9 80.0 - 11/10 MH 98.0 /2016 [facility] HEMATOLOGY RBC 2.94 4.20 - 11/10 MH 5.40 /2016 [facility] HEMATOLOGY Hgb 9.5 12.0 - 11/10 MH 16.0 /2016 [facility] HEMATOLOGY RDW 15.4 11.5 - 11/10 MH 14.5 /2016 [facility] HEMATOLOGY Platelet 192 133 - 450 06 [facility] HEMATOLOGY MCH 32.1 27.0 - 11/10 MH 31.0 /2016 [facility] HEMATOLOGY MCHC 33.2 32.0 - 11/10 MH 36.0 /2016 [facility] HEMATOLOGY MPV 8.6 7.4 - 10.4 11/10 [facility] HEMATOLOGY Eosinophils # 0.2 0.0 - 0.5 11/10 [facility] HEMATOLOGY Lymphocytes # 1.2 1.0 - 5.5 11/10 [facility] HEMATOLOGY Monocytes # 0.6 0.0 - 0.8 11/10 [facility] HEMATOLOGY Eosinophils 3.7 0.0 - 4.0 11/10 [facility] HEMATOLOGY Segs-Bands # 4.1 1.5 - 8.1 11/10 [facility] HEMATOLOGY Basophils 0.7 0.0 - 1.0 11/10 [facility] HEMATOLOGY Monocytes 9.3 2.0 - 12.0 11/10 [facility] HEMATOLOGY Lymphocytes 19.5 20.0 - 11/10 MH 40.0 [facility] HEMATOLOGY Segs 66.8 45.0 - 11/10 MH 75.0 /2016 [facility] HEMATOLOGY POC 11.6 12.0 - 10/09 Hemoglobin 16.0 /2016 [facility] HEMATOLOGY POC Glucose 110 70 - 99 10/09 [facility] HEMATOLOGY POC Potassium 4.8 3.5 - 5.1 10/09 [facility] HEMATOLOGY POC 34.0 36.0 - 10/09 Hematocrit 48.0 [facility] HEMATOLOGY POC Sodium 137 135 - 145 10/09 [facility] Pathology Reports No Data Provided for This Section Diagnostic Reports Report Value Date Source Chest 1view DX EXAMINATION: Chest, 1 view 11/10/2016 [facility] HISTORY: Shortness of breath FINDINGS: Single frontal [...] PROCEDURE : LUMBAR SPINE MRI 01/18/2015 [facility] [place] contrast MRI REASON FOR EXAM: Lumbar stenosis. [...] foraminal narrowing. Mild spinal stenosis. IMPRESSION: 1. [place] facet arthropathy and disc desiccat ion. 2. [...] Date Comments Source Respitory Rate 18 11/11/2016 [facility] it Systolic (mm Hg) 147 11/11/2016 [facility] Diastolic (mm Hg) 62 11/11/2016 [facility] Temperature Oral (F) 98.3 F 11/11/2016 [facility] Heart Rate 83 11/11/2016 [facility] Temperature Oral (F) 98.6 F 11/11/2016 [facility] Respitory Rate 18 11/11/2016 [facility] Heart Rate 81 11/11/[facility] Systolic (mm Hg) 130 11/11/2016 [facility] [place] Diastolic (mm Hg) 58 11/11/2016 [facility] Heart [facility] 74 11[facility]11[facility]2016 [facility] Systolic (mm Hg) 117 11/11/2016 [facility] Diastolic (mm Hg) 57 11/11/2016 [facility] Respitory Rate 18 11/11/2016 [facility] Temperature Oral (F) 97.8 F 11/11/2016 [facility] BMI Calculated 20.31 11/10/2016 [facility] Weight 58.818 11/10/2016 [facility] Height 170.18 cm 11/10/2016 [facility] Respitory Rate 17 10/09/2016 [facility] Systolic (mm Hg) 100 10/09/2016 [facility] Diastolic (mm Hg) 41 10/09/2016 [facility] Respitory Rate 12 10/09/2016 [facility] Systolic (mm Hg) 111 10/09/2016 [facility] Diastolic (mm Hg) 40 10/09/2016 [facility] Respitory Rate 19 10/09/2016 [facility] Systolic (mm Hg) 112 10/09/2016 [facility] Diastolic (mm Hg) 47 10/09/2016 [facility] Heart Rate 66 10/09/2016 [facility] BMI Calculated 19.16 09/26/2016 [facility] Height 170.18 cm 09/26/2016 [facility] Weight 55.483 09/26/2016 [facility] Encounters Location Location Encounter Encounter Reason Attending ADM DC Stat us Source Details Type Number For Provider Date Date Visit AUDIT [id number] 08/04 /2012 Physic[facility] AUDIT [id number] 08/06 /2012 [facility] AMI, [id number] 08/12 08/06 [place] Provider: LESLY Robin [place], Status: Pen, Time: 8:00 AM [facility], [id number] 08/12 08/06 [place] Provider: DESTINY Robin ns Status: Pen, Time: 9:30 AM EST, [id number] 08/18 08/06 [place] Provider: ENRIQUE Sultana dia A, Status: Pen, Time: 1:30 PM AUDIT [id number] 08/25 [facility]icia [facility] AUDIT [id number] 09/24 Physicia ns AUDIT [id number] 11/17 Physicia ns EST, [id number] 02/23 11/18 [place] Provider: ENRIQUE Sultana dia A, Status: Pen, Time: 1:30 PM [facility] Outpt Diag [id number] Laly 01/18 08 M [facility] 0 Jethro- /2014 [facility] Surgery [id number] Arash 10/09 10/09 Raymundo 0 Lyos [facility] [id number] Randy 11/10 11/11 Raymundo 4 Ismael [facility] Procedures Procedure Code Date Perfomer Comments Source B[id number] Bilateral [id number] [facility] Creation of [id number] [facility] arteriovenous shunt [facility] or fistula for dialysis by external cannula Hysterectomy [id number] [facility] Kidney transplant [id number] [facility] Nephrectomy [id number] [facility] Removal of breast [id number] [facility] implant [facility] Vascular surgery [id number] LEFT LEG WITH GREAT TOE AMPUTATION; [facility] procedure<sup>1</patel RIGHT LEG WITH G REAT TOE AMPUTATION [facility] p> Assessment and Plan No Data Provided for This Section Plan of Care Plan of Care Date Source [N] 2D Echo complete, with 11/18/2012 [facility] Doppler 08/04/2012 Routine [N] 2D Echo complete, with 09/25/2012 [facility] Doppler 08/04/2012 Routine Nuclear Test-Adenosine Stress 08/25/2012 [facility] Perfusion 08/04/2012 [id number] Echo complete, with Doppler 08/04/2012 Routine Nuclear Test-Adenosine Stress 08/06/2012 [facility] 08/04/2012 [id number] Echo complete, with Doppler 08/04/2012 Routine Nuclear Test-Adenosine Stress 08/04/2012 [facility] Per[facility] 08/04/2012 [id number] Echo complete, with Doppler 08/04/2012 Routine Social History Social History Date Source Social History TypeResponse 11/10/2016 [facility] Substance Abuse Use: None. IV drug use: [...] Nellie and section Former Smoker (V15.82); 11/18/2012 [facility] (Active) Family History Value Date Source Family history of Coronary 11/18/2012 [facility] Artery Disease (V17.49); (Active) Family history of Coronary 09/25/2012 [facility] Artery Disease (V17.49); (Active) Family history of Coronary 08/25/2012 [facility] Artery Disease (V17.49); (Active) Family history of Coronary 08/06/2012 [facility] Artery Disease (V17.49); (Active) Family history of Coronary 08/04/2012 [facility] Artery Disease (V17.49); (Active) Advance Directives Order Name Results Value Date Source Advance Directives Advance Directives No Advance 11/18/2012 [facility] Directives available. Advance Directives Advance Directives No Advance 09/25/2012 [facility] Directives available. Advance Directives Advance Directives No Advance 08/25/2012 [facility] Directives available. Advance Directives Advance Directives No Advance 08/06/2012 [facility] Directives available. Advance Directives Advance Directives No Advance 08/04/2012 [facility] Directives available. Functional Status No Data Provided for This Section
--- OUTSIDE RECORDS SUMMARY | 2020-04-04 13:52 | XMS REPORT | Continuity of Care Document ---
:1955 Author Organization [facility] t Address [address] [place] [address] Care Team Providers Name Role Phone Melchor Lennon MD Primary Care Physician Viviana Osuna MD Attending Clinician Sree MARQUIS Attending Clinician Unavailable Ismael Attending Clinician Valeria Ward Attending Clinician Ene Mendoza Attending Clinician [phone] Sree MARQUIS Admitting Clinician Unavailable Ismael Admitting Clinician Problems Condition Condition Condition Status Onset Resolution Last Treating Co mments Source Name Details Category Date Date Treatment Clinician Date PFO with PFO with Disease Active [place] atrial atrial 01-07 Methodi septal septal 00:00: st aneurysm aneurysm 00 HTN HTN Disease Active [place] (hypertens (hypertens 01-07 Me thodi ion), ion), 00:00: st malignant malignant 00 End stage End stage Disease Active Dam[place] ston renal renal 01-07 Methodi disease disease 00:00: st 00 BREAST Diagnosis Active 2016-11-10 Mem oria IMPLANT 11-10 02:25:00 l HEMATOMA BREAST 00:00: Dennis n IMPLANT 00 HEMATOMA Active 11/10/2016 [facility] POSTTRAMAT Diagnosis Active 2017-04-02 Memoria IC 6-03 21:52:00 l HEMATOMA 00:00: [place] OF LEFT POSTTRAMAT 00 BREST IC HEMATOMA OF LEFT BREST Active 11/10/2016 [facility] 76070-95, Diagnosis Active 2016-10-09 Memoria 40685-4 4-06 05:36:00 l HISTORYOF 00:00: [place] BREAST 53228-80, 00 AUGME 10718-1 HISTORYOF BREAST AUGME Active 09/13/2016 [facility] Absence of Problem Resolve 2016-11-14 Memoria breast d 00:20:34 l (finding) Absence Herm priya of breast (finding) Resolved Problem 11/14/2016 [facility] Malignant Problem Resolve 2016-11-14 M emoria tumor of d 00:20:34 l breast [place] (disorder) Malignant tumor of breast (disorder) Resolved Problem 11/14/2016 [facility] End Stage Problem Active 2012-11-18 Me moria Renal 02:06:24 l Disease End [place] Stage Renal Disease Active 3 [place] [facility] Diabetes Problem Active 2012-11-18 Mem oria [...] He rmann mellitus (disorder) Active Problem 11/14/2016 [facility] Disease of Problem Active 2016-11-14 M emoria thyroid 00:20:34 l gland Disease [place] (disorder) of thyroid gland (disorder) Active Problem 11/14/2016 [facility] End stage Problem Active 2016-11-14 Me moria renal 00:20:34 l disease on End Dennis n dialysis stage due to renal type 1 disease on diabetes dialysis mellitus due to (disorder) type 1 diabetes mellitus (disorder) Active Problem 11/14/2016 [facility] Hypertensi Problem Active 2016-11-14 M emoria ve 00:20:34 l disorder, [place] systemic Hypertensi arterial ve (disorder) disorder, systemic arterial (disorder) Active Problem 11/14/2016 [facility] ILLNESS, Diagnosis Active 2016-11-10 M emoria UNSPECIFIE 03:17:00 l D ILLNESS, [place] n UNSPECIFIE D Active [facility] CONTUSION Diagnosis Active 2017-04-02 Memoria OF LEFT 21:52:00 l BREAST, [place] INITIAL CONTUSION ENCOUN OF LEFT BREAST, INITIAL ENCOUN Active [facility] Allergies, Adverse Reactions, Alerts Allergy Allergy Status [...] penicill Active Memori a ins ins l [place] Family History Family Member Diagnosis Comments Start Date Stop Date Source Natural father Heart attack [place] [facility] Natural mother Hypertension [place] [facility] Natural mother Thyroid disease [place] [facility] Natural sister Hypertension [place] [facility] Unknown Family Family History 2012-08-04 2012-08-04 Memori al [place] Member 19:54:47 19:54:47 Social History Social Habit Start Date Stop Date Quantity Comments Source History SDOH [facility] St[facility] History SDOH [facility] - Alcohol Binge Medical Iain ter Sex Assigned At [facility] Tobacco use and 2018-07-10 2018-07-10 Never used [facility] St Tawana kes - exposure 00:00:00 00:00:00 [facility] Center Alcohol intake 2018-07-10 2018-07-10 Current [facility] St Fady es - 00:00:00 00:00:00 non-drinker of Medical Ce nter alcohol (finding) History SDOH 2018-07-08 2018-07-[address] [facility] - Alcohol Frequency 00:00:00 00:00:[address] [facility] Social History 2012-11-18 2012-11-18 [facility] ermann 02:06:24 02:06:24 Smoking Status Start Date Stop Date Source Former smoker 2018-10-26 00:00:00 2018-10-26 00:00:00 [place] [facility] Never smoker [facility] Medications Ordered Filled Start Stop Current Ordering Indication Dosage Frequency Signature Comments Components Source Medication Medication Date Date Medication? Clinician (SIG) Name Name ascorbic 2019- Yes 1000mg QD Take 1,[address] acid, 1-30 mg by [facility]ukes - vitamin C, 14:23: mouth Medica l (VITAMIN C) 18 daily. [place] 1000 MG tablet atropine 2018- Yes 1[drp] Q.[id number] [address] (ISOPTO) 1 1-30 [id number] (three) [facility]ukes - % 14:23: 3D times Medical ophthalmic 18 daily. [place] solution b complex 2018- Yes 1{tbl} QD Take [address] vitamins 1-30 tablet by Lukes - tablet 14:23: mouth Medical 18 daily. [place] biotin 1 mg 0 Yes Take by [facility] Cap 1-30 mouth. [facility] - 14:23: Medical 18 [place] carvedilol Yes 25mg Take [address] (COREG) 25 1-30 by mouth 2 Fady es - MG tablet 14:23: (two) Medical 18 times Center daily with breakfast and dinner. cholecalcif 2018-0 Yes 5000U QD Take 5,[address] charlie, 1-30 Units by Lukes - vitamin D3, 14:23: mouth Medic al 5,000 unit 18 daily. [place] Tab clonidine 0 Yes Take by [facility]I S t HCl 1-30 mouth. Lukes - (CATAPRES 14:23: Medical ORAL) 18 [place] esomeprazol Yes 40mg QD Take [address] e (NEXIUM) 1-30 by mouth Lukes - 40 MG 14:23: daily. Medical capsule 18 [place] hydrALAZINE 2018-0 Yes 100mg Q.5D Take [address] (APRESOLINE 1-30 mg by Lukes - ) 100 MG 14:23: mouth 2 Medica l tablet 18 (two) Center times daily. isosorbide 2019-0 Yes 60mg QD Take [address] mononitrate 1-30 by mouth Luke s - (IMDUR) 60 14:23: daily. Medic al MG 24 hr 18 [place] tablet levothyroxi 2018-0 Yes 75ug Take [address] ne 1-30 mcg by Lukes - (SYNTHROID, 14:23: mouth Medic al LEVOTHROID) 18 Every Center 75 MCG morning on tablet an empty stomach. liothyronin 0 Yes 5ug QD Take [address] e (CYTOMEL) 1-30 by mouth Luke s - 5 MCG 14:23: daily. Medical tablet 18 [place] losartan Yes 50mg QD Take [address] (COZAAR) 50 1-30 by mouth Luke s - MG tablet 14:23: daily. Medica l 18 [place] loteprednol 2018-0 Yes 1[drp] Q.25D [address] (LOTEMAX) 1-30 (four) Lukes - 0.5 % 14:23: times Medical ophthalmic 18 daily. Center suspension moxifloxaci 0 Yes 1[drp] Q.51646743 [address] n (VIGAMOX) 1-30 [id number] (three) Lukes - 0.5 % 14:23: 3D times Medical ophthalmic 18 daily. [place] solution NIFEdipine Yes 90mg QD Take [address] (ADALAT CC) 1-30 by mouth Luke s - 90 MG 24 hr 14:23: daily. Medi latisha tablet 18 [place] insulin Yes Inject [facility] aspart 1-30 subcutaneo Lukes - U-100 14:23: usly 3 Medical (NOVOLOG) 18 (three) Center 100 unit/mL times InPn daily with meals. omega Yes Take by [facility] 3-dha-epa-f 1-30 mouth. Lukes - liliana oil 14:23: Medical (FISH OIL) 18 [place] 100-160-1,0 00 mg Cap pantoprazol 0 Yes 40mg QD Take [address] e 1-30 by mouth Lukes - (PROTONIX) 14:23: daily. Medic al 40 MG 18 Center tablet pravastatin Yes 20mg QD Take [address] (PRAVACHOL) 1-30 by mouth Luke s - 20 MG 14:23: daily. Medical tablet 18 [place] prednisoLON 0 Yes 1[drp] Q.25D [address] E acetate 1-30 (four) Lukes - (PRED 14:23: times Medical FORTE) 1 % 18 daily. [place] ophthalmic suspension timolol 2019-0 Yes 1[drp] Q.5D [address] (TIMOPTIC) 1-30 (two) Lukes - 0.5 % 14:23: times Medical ophthalmic 18 daily. Center solution tobramycin 2019-0 Yes Q.[id number] 3 (three) [facility] (TOBREX) 1-30 [id number] times Luke s - 0.3 % 14:23: [...] 09 every tablet morning. sevelamer Yes 800mg Q.80392487 Take 800 Eng (RENVELA) 02-18 [id number] mg by Met hodi 800 mg 08:56: [...] ena -04 (Same as: l 02:00: Pravachol) [place] 00 Isosorbide No Notes: Memor ia 6-04 (Same l 02:00: as:Imdur) [place] 00 Do not crush Cleocin HCl No Notes: Johnnie ena + sodium - (clindamyc l chloride 01:00: in 150 [place] 0.9% INJ 50 00 mg/1 ml mL (600 mg/4 ml VL) INJ) (Same As: Cleocin) Protonix No Notes: Memoria 6-03 Tablet l 21:30: should not [place] 00 be chewed or crushed. (Same as: Protonix) Morphine No Notes: Memoria 6-03 (Same l 21:04: as:MORPhin [place] 00 e Sulfate) Acetaminoph No Notes: Johnnie ena en 325 MG / 6- Same as l Hydrocodone 21:03: [place] nn Bitartrate 00 325-7.5mg 7.5 MG [...] 11-10 Drug form: l 17:26: INJ, ONCE, [place] Stop date: 11/10/16 12:26:00 CDT Cleocin No [...] (ANES) 11-10 Drug form: l 17:21: SOLN, [place] 00 ONCE, Stop date: 11/10/16 12:21:00 CDT [...] Notes: Memoria 6-03 (Same l 17:11: as:MORPhin [place] 00 e Sulfate) Hydromorpho No Notes: Johnnie [...] 11-10 Route: PO, l 14:00: Drug form: [place] 00 ECCAP, Daily, Dosing Weight 58.818, kg, Start date: 11/10/16 9:00:00 CDT, Duration: 30 day, Stop date: 12/09/16 9:00:00 CDT Coreg No Notes: Memoria 6- Give with l 14:00: food. [place] 00 (Same As: Coreg) Renvela No Notes: Memoria 6- Same as: l 13:00: Renvela 00 Synthroid No Notes: Memori a 6- Take 1 l 11:30: hour [place] 00 before or 2 hours after meal; [...] Route: IV, l 0.9% IV 08:07: Start [place] 00 date: 11/10/16 3:07:00 CDT, Duration: 30 day, Stop date: 12/10/16 3:06:00 CDT, PRN Line Flush BD Normal No Notes: Memori a Saline 11-10 (Same as: l Flush 08:07: BD [place] 00 Posiflush) Acetaminoph No Notes: Johnnie ena en 325 MG / 11-10 (Same as: l Hydrocodone 07:57: [place] nn Bitartrate 00 325/5) Do 5 MG Oral not exceed Tablet 4gm/day of acetaminop hen. Morphine No Notes: Memoria 11-10 (Same l 07:57: as:MORPhin e Sulfate) Acetaminoph No Notes: Do M emoria en 11-10 not exceed l 07:57: 4 gm/day. [place] 00 (Same as: Tylenol) Ondansetron No Notes: [...] (ANES) 5-02 Drug form: l 19:43: SOLN, [place] 00 ONCE, Stop date: 10/09/16 14:43:00 CDT [...] mg, Memoria 10-09 Route: l 17:41: IVP, [place] 00 Q5Min, Dosing Weight 55.483, kg, PRN Anxiety, Start date: 10/09/16 12:41:00 CDT, Duration: 2 doses or times, Stop date: Limited # of times Promethazin 2016-0 No 6.25 mg, Me moria e 10-09 Route: l 17:41: IVPB, [place] 00 ONCE, Dosing Weight 55.483, kg, PRN Nausea & Vomiting, Start date: 10/09/16 12:41:00 CDT Dexamethaso No 4 mg, Memor ia ne 10-09 Route: l 17:41: IVP, ONCE, [place] 00 Dosing Weight 55.483, kg, PRN Nausea & Vomiting, Start date: 10/09/16 12:41:00 CDT Lorazepam 2016-0 No 0.5 mg, Memor ia 10-09 Route: l 17:41: IVP, [place] 00 Q20Min, Dosing Weight 55.483, kg, PRN Anxiety, Start date: 10/09/16 12:41:00 CDT, Duration: 3 doses or times, Stop date: Limited # of times 72 HR Yes Notes: Memoria Scopolamine 10-09 Change l 0.0139 17:41: patch [place] MG/HR 00 every 72 Transdermal hours Patch (Same as: Transderm- Scop) Ondansetron 2016-0 No 4 mg, Memor ia 10-09 Route: l 17:41: IVP, ONCE, [place] Dosing Weight 55.483, kg, PRN Nausea & Vomiting, Start date: 10/09/16 12:41:00 CDT Meperidine 2016-0 No 12.5 mg, Mem oria 10-09 Route: l 17:41: IVP, [place] 00 Q30Min, Dosing Weight 55.483, kg, PRN [...] Albuterol 02 Albuterol l 0.09 17:41: 90 [place] MG/ACTUAT 00 microgram/ Metered inh 8gm Dose HFA Inhaler WASTE: Aerosol - Return to Pharmacy Same as: Fozia Mosley Morphine 2017-0 No 2 mg, Memoria 10-09 Route: l 17:41: IVP, [place] 00 Q5Min, Dosing Weight 55.483, kg, PRN Pain Score 4-6, Start date: 10/09/16 12:41:00 CDT, Duration: 5 doses or times, Stop date: Limited # of times Diphenhydra 2016-0 No 12.5 mg, Me moria mine 10-09 Route: l 17:41: IVP, Drug [place] form: INJ, Q6H, Dosing Weight 55.483, kg, PRN Itching, Start date: 10/09/16 12:41:00 CDT, Duration: 30 day, Stop date: 11/08/16 12:40:00 CDT Racepinephr 2016-0 No 0.5 mL, Mem oria ine 10-09 Route: l 17:41: NEB, [place] 00 Dosing Weight 55.483, kg, PRN, PRN Shortness of breath, Start date: 10/09/16 12:41:00 CDT, Duration: 30 day, Stop date: 11/08/16 12:40:00 CDT Flumazenil 2016-0 No 0.2 mg, Johnnie ena 10-09 Route: l 17:41: IVP, PRN, [place] 00 Dosing Weight 55.483, kg, PRN Benzodiaze [...] Memori a 10-09 Route: l 17:41: IVP, [place] 00 Q2MIN, Dosing Weight 55.483, kg, PRN Narcotic Reversal, Start date: 10/09/16 12:41:00 CDT, Duration: 8 doses or times, Stop date: Limited # of times Ketorolac 2016-0 Yes 4 days Memor ia 10-09 l 17:41: MEDICATION [place] 00 WASTE Product Size: 30 mg Product [...] mg, Memoria 10-09 Route: l 17:41: IVP, [place] 00 Q5Min, Dosing Weight 55.483, kg, PRN [...] Memori a 10-09 Route: l 17:41: IVP, [place] 00 Q5Min, Dosing Weight 55.483, kg, PRN Elevated BP, Start date: 10/09/16 12:41:00 CDT, Duration: 5 doses or times, Stop date: Limited # of times Metoprolol 2016-0 No 1 mg, Memori a 10-09 Route: l 17:41: IVP, [place] 00 Q5Min, Dosing Weight 55.483, kg, PRN [...] oria ne 10-09 Route: l 17:41: IVP, [place] 00 Q5Min, Dosing Weight 55.483, kg, PRN Pain Score 7-10, Start date: 10/09/16 12:41:00 CDT, Duration: 4 doses or times, Stop date: Limited # of times Clindamycin Yes Notes: Johnnie ena 10-09 (Same As: l 17:32: Cleocin) [place] 00 Sodium No 500 mL, Memoria Chloride [...] Memoria 4-19 Instructio l 19:29: ns, 0 [place] 00 Refill(s) sevelamer Yes 800 mg = [...] tab, PO, l tablet 19:26: BID, 0 [place] 00 Refill(s) 24 HR Yes 90 mg = 1 Memoria Nifedipine 4-19 tab, PO, l 90 MG 19:26: BID, # 90 [place] Extended 00 tab, 1 Release Refill(s) Tablet Super B Yes (Active) Memor ia Complex 6-11 l TABS 02:06: [place] 24 Vitamin D3 Yes (Active) Me moria 5000 UNIT 6-11 l Oral 02:06: [place] Capsule 24 Multi For Yes (Active) Mem oria Her 50+ 6-11 l Oral 02:06: [place] Capsule 24 Pantoprazol Yes (Active) M emoria [...] 25 MG Oral 6-11 l Tablet 02:06: [place] 24 Vital Signs Vital Name Observation Time Observation Value Comments Source Respitory Rate 2016-11-11 12:12:00 Memori al [place] Systolic (mm Hg) 2016-11-11 12:12:00 Johnnie rial [place] Diastolic (mm Hg) 2016-11-11 12:12:00 Mem orial [place] Temperature Oral (F) 2016-11-11 12:12:00 98.3 F Memorial [place] Heart Rate 2016-11-11 12:12:00 [facility] [place] Temperature Oral (F) 2016-11-11 09:00:00 98.6 F Memorial [place] Respitory Rate 2016-11-11 09:00:00 Memori al [place] Heart Rate 2016-11-11 09:00:00 [facility] [place] Systolic (mm Hg) 2016-11-11 09:00:00 Johnnie rial [place] Diastolic (mm Hg) 2016-11-11 09:00:00 Mem orial [place] Heart Rate 2016-11-11 05:00:00 [facility] [place] Systolic (mm Hg) 2016-11-11 05:00:00 Johnnie rial [place] Diastolic (mm Hg) 2016-11-11 05:00:00 Mem orial [place] Respitory Rate 2016-11-11 05:00:00 Memori al [place] Temperature Oral (F) 2016-11-11 05:00:00 97.8 F [facility] [place] BMI Calculated 2016-11-10 08:39:00 Memori al [place] Weight 2016-11-10 08:39:00 Memorial [place] Height 2016-11-10 08:39:00 170.18 cm [facility] [place] Respitory Rate 2016-10-09 22:35:00 Memori al [place] Systolic (mm Hg) 2016-10-09 22:30:00 Johnnie rial [place] Diastolic (mm Hg) 2016-10-09 22:30:00 Mem orial [place] Respitory Rate 2016-10-09 22:30:00 Memori al [place] Systolic (mm Hg) 2016-10-09 22:00:00 Johnnie rial [place] Diastolic (mm Hg) 2016-10-09 22:00:00 Mem orial [place] Respitory Rate 2016-10-09 22:00:00 Memori al [place] Systolic (mm Hg) 2016-10-09 21:55:00 Johnnie riajo [place] Diastolic (mm Hg) 2016-10-09 21:55:00 Mem orial [place] Heart Rate 2016-10-09 17:23:00 Yeny [place] BMI Calculated 2016-09-26 19:14:00 Memori al [place] Height 2016-09-26 19:14:00 170.18 cm [facility] Weight 2016-09-26 19:14:00 [facility] Procedures Procedure Date / Time Performed Performing Clinician Carolin e Bilateral breast implants Memori al [place] Bilateral [facility] [place] shunt or fistula for dialysis by external cannula [facility] [place] [facility] n procedure<sup>1</sup> Plan of Care Planned Activity Planned Date Details Comments Source Future Scheduled 2020-02-09 INFLUENZA VACCINE (#1) [facility] 00:[facility]:00 [code = INFLUENZA Medical Ce nter VACCINE (#1)] Future Scheduled 2020-01-09 INFLUENZA VACCINE [place] [facility] Test 00:00:00 [code = INFLUENZA VACCINE] Future Scheduled 2019 65+ PNEUMOCOCCAL Eng [facility] Test 00:00:00 VACCINE (1 of 1 - PPSV23) [code = 65+ PNEUMOCOCCAL VACCINE (1 of 1 - PPSV23)] Future Scheduled 2019 PNEUMOCOCCAL 65+ YRS [facility] - Test 00:00:00 (1 of 1 - Medical Center [id number] PCV13) [code = PNEUMOCOCCAL 65+ YRS (1 of 1 - [id number] PCV13)] Future Scheduled 2012-11-18 Plan of Care [code = Mem orial [place] Test 02:06:24 17066-1] Future Scheduled 2012-09-25 Plan of Care [code = Mem orial [place] Test 00:09:12 62998-0] Future Scheduled 2012-08-25 Plan of Care [code = Mem orial [place] Test 21:39:37 65963-2] Future Scheduled 2012-08-06 Plan of Care [code = Mem orial [place] Test 22:03:58 25741-7] Future Scheduled 2012-08-04 Plan of Care [code = Mem orial [place] Test 19:54:47 26942-4] Future Scheduled 2005-12-[address] [facility] - Test 00:00:00 WELLNESS (YEAR 2 or Medical Center FIRST YEAR if no IPPE) [code = MEDICARE ANNUAL WELLNESS (YEAR 2 or FIRST YEAR if no IPPE)] Future Scheduled 2004-02-15 BREAST CANCER Eng [facility] Test 00:00:00 SCREENING [code = BREAST CANCER SCREENING] Future Scheduled 2004-02-15 COLONOSCOPY SCREENING [place] [facility] Test 00:00:00 [code = COLONOSCOPY SCREENING] Future Scheduled 2004-02-15 SHINGLES VACCINES (#1) [place] [facility] Test 00:00:00 [code = SHINGLES VACCINES (#1)] Future Scheduled 1964-02-15 DIABETES: RETINAL EYE [place] [facility] Test 00:00:00 EXAM [code = DIABETES: RETINAL EYE EXAM] Future Scheduled 1964-02-15 DIABETIC FOOT EXAM [place] [facility] Test 00:00:00 [code = DIABETIC FOOT EXAM] Future Scheduled 1964-02-15 URINE MICROALBUMIN [place] [facility] Test 00:00:00 [code = URINE MICROALBUMIN] Future Scheduled [address] [facility] - Test 00:00:00 [facility] breast (procedure) [code = 437602263] Future Scheduled [address] [facility] - Test 00:00:00 [facility] colon (procedure) [code = 838541961] Encounters Start End Encounter Admission Attending Care Care Encounter Source Date/Time Date/Time Type Type Clinicians Facility Department ID 2019-01-19 2019-01-19 Office WICHO Osuna [id number] 13:06:45 13:21:45 Visit Yara AMBULATOR [id number] Viviana Y [id number] 2016-11-10 2016-11-11 Outpatient Ismael [facility] [id number] 02:58:00 13:50:00 Randy 54 2016-10-09 2016-10-09 [id number] 05:34:00 17:50:00 Arash Bynum 2015-01-18 2015-01-18 Outpatient Kary OIP [facility] [id number] 16:28:00 23:59:00 Misa galan 2012-11-17 2012-11-17 Outpatient [facility] [place] [id number] 21:06:45 21:06:24 2012-09-24 2012-09-24 Outpatient MHIE [facility] [id number] 19:09:31 19:09:12 2012-08-25 2012-08-25 Outpatient MHIE IE [id number] 16:39:55 16:39:37 2012-08-06 2012-08-06 Outpatient MHIE MHIE [id number] 16:04:16 16:03:58 2012-08-04 2012-08-04 Outpatient MHIE IE [id number] 13:55:06 13:54:47 Results Test Description Test Time Test Comments Results Result Comments Source POCT-SODIUM 2018-07-09 12:25:00 Test Item Value Reference Range Interpretation Comme nts [facility]SOD[facility]UM [facility] (test code = 139 meq/L 135-148 TESTED AT [place] [address] 1542) [place] [address] [id number] 12:25:00 Test Item Value Reference Range Interpretation Comments POC-POTASSIUM 4.1 meq/L 3.6-5.5 TESTED AT [place] [address] ([facility]) (test code [facility] = 1540) [place] [address] 0 [id number] 12:25:00 Test Item Value Reference Range Interpretation Comments POC-BUN (AKER) 20 mg/dL 7-21 TESTED AT [place] [address] (test code = 2842) [place] [address] [id number] 12:25:00 Test Item Value Reference Range Interpretation Comments POC-CHLORIDE 101 meq/L 98-107 TESTED AT [place] [address] ([facility]) (test code [facility] = 2843) [place] [address] 0 [id number] 12:25:00 Test Item Value Reference Range Interpretation Comments POC-GLUCOSE ([facility]) 155 mg/dL 70-110 H TESTED AT [place] [address] (test code = 1855) [place] [address] 0 [id number] 12:25:00 Test Item Value Reference Range Interpretation Comments POC-HEMATOCRIT 37 % 36-45 TESTED AT [facility] 7200 ([facility]) (test code = [facility] 1857) [place] [address] [id number] 12:25:00 Test Item Value Reference Range Interpretation Comments POC-HEMOGLOBIN 12.6 g/dL 12.0-15.0 TESTED AT [facility] 7200 ([facility]) (test code [facility] = 1856) [place] [address] 0TESTED AT [facility] 72 00 [facility] 770 0 CHEM [id number] 07:48:007[facility] HermannCHEM [id number] 07:48:005.79 [facility]annCHEM [id number] 07:48:0024[facility] HermannCHEM PANEL 2016-11-11 07:48:005.3[facility] HermannCHEM [id number] 07:48:48529Eeqmysiv HermannCHEM [id number] 07:48:20555Fsgyqffl HermannCHEM IYXBQ9730-62-36 07:48:0038[facility] HermannCHEM RUKVE6834-81-03 07:48:008.6[facility] HermannCHEM VCNIN9165-33-28 07:48:02878Ymnhqrae HermannCHEM ECTXV5839-15-62 07:48:0020.3 Memorial LomdiqqCZNUVZWVMY5220-40-01 07:48:0015.4[facility] HermannHEMATOLOGY 2016-11-11 07:48:008.7Memorial BphynpdEIVGUFPMNJ7621-03-70 07:48:63641Uybhsfgs KznjyjcWAVWPXQERN1685-58-21 07:48:0027.0[facility]orial OvmsnfuHQFPXNATSC6679-39-11 07:48:00 Test Item Value Reference Range Interpretation Comments [facility] (test code = MCH) 32.1 pg 27.0-31.0 Memorial QaapowfYYMEUSBCDM0564-74-50 07:48:0097.5[facility] HermannHEMATOLOGY 2016-11-11 07:48:0032.9Memorial BnvjhhcZDLXENIECG7978-90-23 07:48:006.4Memorial UumwnuzTDSYQORJUQ7980-05-01 07:48:002.76Memorial VvqxbleHQODPJSLBO2897-71-42 07:48:008.9[facility] UifxihzCXQUFQKOLC7132-12-19 07:48:000.1[facility] [place] DKXNQFAFRR2572-85-67 07:48:000.9[facility]orial HrkcddtIKKFPCZHER3452-34-46 07:48:000.7 Memorial QmjkyrwJUBTCGRIKM8470-98-83 07:48:0014.1[facility] HermannHEMATOLOGY 2016-11-11 07:48:001.9Memorial QnxbprxUOKJOCYTBF8691-57-11 07:48:0010.7[facility] MzghwnkGOFRLMCDWP1434-92-76 07:48:004.7[facility]orial AjkhxjnAVWWMXNWPR3654-63-27 07:48:000.7Memorial VzjjoomDPCAAXZCQW2507-46-69 07:48:0072.6[facility] HermannCHEM ZSXTB5457-95-21 09:12:003.9[facility] HermannCHEM MUSWW8862-46-85 09:12:002.6 Memorial DayaqyqDFYGYZUTPGGJ4915-96-66 09:12:19121Xqjiqifg HermannELECTROLYTES 2016-11-10 09:12:008.6[facility] FslfqjlIGRUUHTXXIIY4276-82-19 09:12:004.8[facility] IaiaqhtEAMAWZBAMTMP3424-51-96 09:12:48784Bkduxycd PvjgaqjXVBSODEBXVRE3648-52-13 09:12:0029[facility] ArvskooXQTUMMEXKGSN0560-54-85 09:12:000.7[facility] BTYEOSLZSDNI8410-00-56 09:12:006.0[facility] DbbdeykXQZBGKKEZVNM6591-83-43 09:12:71288Qhvzzjcx XxkvjleVVXREFRWTPDP7902-52-27 09:12:0014[facility] THUZLJCOACNC4541-23-47 09:12:0014[facility] OcwseklOPTEUWXZDTWK1838-46-25 09:12:00 2.9[facility] IqerihkQJIJTLOWQJKR5182-05-82 09:12:25163Sqwctgtr Raymundo SQEGESZRAAEV1667-91-21 09:12:004.87[facility] AijbcovAVMTVEMYAXYI5790-65-19 09:12:0028[facility] RdsowbtKPNOLFCOLYKF8095-38-84 09:12:009[facility] TYKZSYMDMFHQ6594-43-95 09:12:0014.8[facility] GuhrtbiJZCCADUCYOUB2316-25-05 09:12:000.9[facility] IkuexsbEIUCWSMGIZZF7822-62-42 09:12:003.1[facility] ZSNAQXDVFVOE8118-32-27 09:12:006[facility] IkyfbsiEXPJEJCOLT9242-79-38 09:12:006.1 [facility] AspgzvrVMKWTFJVYM8679-99-69 09:12:0028.5[facility]ann[facility]OLOGY 2016-11-10 09:12:0096.9[facility] BpbgpryYHCLQPDQBG0191-29-24 09:12:002.94[facility] YlcqyylTMVQKBDLXI1842-47-03 09:12:009.5[facility] TdydqkoFUBDMBORIS0134-90-19 09:12:0015.4[facility] IwbqeklEDRSRHQCIC7770-34-54 09:12:12079Cjluh[facility] [place] CSUOBTPZVP6120-00-03 09:12:00 Test Item Value Reference Range Interpretation Comments MCH (test code = MCH) 32.1 pg 27.0-31.0 [facility] SoattorUTKKEJILMR2216-22-63 09:12:0033.2[facility]annHEMATOLOGY 2016-11-10 09:12:008.6[facility] QbhssyiZDNOEEOQOP4748-06-29 09:12:000.2[facility] MwzdjweQXAJIRZDIF4468-43-33 09:12:001.2[facility] ItejmcmSFNSVKEFLP4956-13-73 09:12:000.6[facility] FryigrtZURUZKDWEI3884-31-65 09:12:003.7[facility] GOOXHUSQLM7139-40-23 09:12:004.1[facility] XmaiyuzXRMFLZMAXP9670-70-36 09:12:000.7 [facility] FtlpzxoWRWSNVODHZ2738-14-15 09:12:009.3[facility]annHEMATOLOGY 2016-11-10 09:12:0019.5[facility] OtzpyusRVPDATPNCQ5139-05-98 09:12:0066.8[facility] ItwaxxzNQQIMGOTJP1139-99-34 17:57:0011.6[facility] SbdmlosGBJINSFNPG4250-71-16 17:57:80158Pwnoecwh OtdrgagBVKUQMBVJZ9662-25-52 17:57:004.8[facility] PJMKHISBRH1253-31-49 17:57:0034.0[facility] HuwvsduDFLHIQCOUP7077-85-70 17:57:00 137[facility]
[2020-04-04] MEDS ORDERED: D50W 25 GM/50 ML SYRINGE/VIAL IV ONE ×2 (14:02→15:15)
[2020-04-04 14:32] LABS: Absolute Lymphocytes (CBC) 0.6 K/uL (0.7-4.9); Basophils % 0.3 % (0-1.3); Hematocrit 46.3 % (36.0-45.0); Lymphocytes % 9.2 % (15.3-44.8); MPV 9.5 fL (7.6-11.3); RBC Red Blood Cell Count 4.79 M/uL (3.86-4.86)
[2020-04-04 14:33] LABS: Protime INR 1.06
--- NOTE | 2020-04-04 14:56 | RAD REPORT ---
EXAM DESCRIPTION: CT - Head C Spine Cap Wo Con - 04/04/2020 2:30 pm CLINICAL HISTORY: PAIN, unresponsive COMPARISON: C Spine Wo Cont dated 12/05/2017 TECHNIQUE: Axial [address] head images were obtained. Axial [address] cervical spine images were obtain ed with sagittal and coronal reconstruction images reviewed. Axial 5 mm images of the chest, abdomen and pelvis were obtained. All CT scans are performed using dose optimization technique as appropriate and may include automated exposure control or mA/KV adjustment according to patient size. FINDINGS: No intracranial hemorrhage, mass or edema. No midline shift or abnormal fluid collection. Mastoid air cells are partially opacified on the left. No air-fluid level in the paranasal sinuses. N o skull fracture. Moderate severity atrophy and chronic ischemic changes are present. Atrophy is pro minent for patient age. Ventricles are in proportion. Arterial and physiologic calcifications are pre sent. Partial collapse of the inferior aspects C4 in superior aspect C5 noted with the C4-5 disc space thin anderson and irregular. There is a minimal anterior subluxation of C4 on C5. This is a chronic configurati on that dates back to the 2018 MRI study. An acute finding at this site is not suspected. Concave con tour to C6 vertebrae also seen as chronic. No acute fracture changes seen.No other disc space narrowi ng.No prevertebral soft tissue thickening or paraspinal mass.Central canal detail is inherently limit ed on CT imaging. Bilateral lung base atelectasis is present. There is additional airspace opacification in the left natalie ng base. Infectious or aspiration pneumonia is certainly a consideration. No pericardial effusion. No mediastinal hematoma and the aorta and pulmonary arteries are unremarkable. No chest will mass or ab normal axillary finding. No displaced rib fracture or other significant bony finding. Bilateral migdalia st implants are in place. The liver, spleen and pancreas show no acute findings. No gallbladder or biliary tree acute finding. Left kidney is atrophic with cortical thinning. Multiple cortical cysts are present. No right kidney present. There is a 6 centimeter x 4 centimeter partially calcified soft tissue mass in the right low er pelvis near the iliac vasculature. This may be the starting calcified remnants of a failed renal t ransplant. Patient has very dense arterial tree calcifications throughout the abdomen and pelvis. No acute bowel injury identifiable. Hyperdense material within the bowel is probably contrast from a prior study. No history of contrast administration noted. No free air or pneumatosis. No mass or bulky lymphadenopathy. Complex periumbilical hernia approximat john 6 cm in diameter caring only fat. No free fluid or focal inflammatory stranding. Urinary bladder is mostly contracted limiting assessment. Bladder may not be of functioning organ system. Osteopenic and degenerative changes are present throughout the spine. There is accentuated thoracic k yphosis. Height loss is seen in multiple vertebral bodies with no one body showing evidence for acute compression fracture. biconcave contour to endplates of most vertebral bodies. Left femur surgical h ardware in place. No acute proximal femur or pelvis finding. IMPRESSION: Atrophy and chronic ischemic change with no acute intracranial finding. Prominent cervical spine degenerative change most notable at C4-5. Cervical findings all appear to be chronic. Bilateral lung base atelectasis with additional left lung base airspace opacification that could be i nfectious or aspiration pneumonia. No acute traumatic injury to the abdomen or pelvis. There are findings of the abdomen and pelvis deta iled in the report that do not appear to be of acute clinical significance. No significant CT Chest finding. No significant CT Abdomen and Pelvis finding.
--- NOTE | 2020-04-04 15:02 | RAD REPORT ---
EXAM DESCRIPTION: RAD - Chest Single View - 04/04/2020 2:48 pm CLINICAL HISTORY: COUGH COMPARISON: June 2017 TECHNIQUE: AP portable chest image was obtained 04/04/2020 2:48 pm . FINDINGS: Chronic interstitial lung disease is present similar to comparison. Right lung field is cl ear of a focal mass or consolidation. Left lung field is mostly obscured by the dense overlying breas t implant. Acute finding is doubtful. Heart and vasculature are normal. No measurable pleural effusion and no pneumothorax. No acute bony abnormality seen. No acute aortic findings suspected. IMPRESSION: Exam is limited as detailed but no acute cardiopulmonary process seen.
[2020-04-04 15:05] LABS: ALT/SGPT 13 U/L (12-78); AST/SGOT 29 U/L (15-37); Albumin 2.9 g/dL (3.4-5.0); Alkaline Phosphatase 130 U/L (45-117); BUN Blood Urea Nitrogen 90 mg/dL (7-18); Bicarbonate 21 mmol/L (21-32); Bilirubin Direct 0.2 mg/dL (0-0.2); Bilirubin Total 0.5 mg/dL (0.2-1.0); Glucose Level 78 mg/dL (74-106); Magnesium 3.1 mg/dL (1.8-2.4); NT PRO-BNP 13873 pg/mL (<125); Protein, Total 7.4 g/dL (6.4-8.2); Sodium Level 130 mmol/L (136-145); Troponin (Emerg Dept Use Only) < 0.02 ng/mL (0.0-0.045)
[2020-04-04 15:06] LABS: Potassium 7.3 mmol/L (3.5-5.1)
[2020-04-04] MEDS ORDERED: INSULIN -REGULAR HUMAN 50 UNIT/0.5 ML ML ONE (15:14)
[2020-04-04] MEDS ORDERED: ALBUTEROL 2.5 MG/3 ML NEB SOL ONE (15:14)
[2020-04-04] MEDS ORDERED: SOD POLYSTYREN SUL 15 GM/60 ML UCUP ONE (15:15)
[2020-04-04] MEDS ORDERED: NA CHLORIDE 0.9% 1,000 ML ONE (15:16)
[2020-04-04] MEDS ORDERED: IPRATROPIUM BROM 0.5MG/2.5ML ONE (15:16)
--- NOTE | 2020-04-04 15:17 | ER ---
Nurse's Notes [facility] Name: Jens Hightower Age: 65 yrs Sex: Female : 1955 Arrival Date: 04/04/2020 Time: 13:45 Bed 5 Private MD: Diagnosis: Altered mental status, unspecified;Hypoglycemia, unspecified;Type 1 diabetes mellitus;End stage renal disease-on HD;Hyperkalemia Presentation: 04/04 13:45 Chief complaint: EMS states: Pt was found unresponsive by . EMS reports pt was aa5 found unresponsive but breathing upon scene arrival, O2 sat was 66% on RA upon their arrival and oxygen was administered via non-rebreather, O2 sat improved to 95% on non-rebreather. Pt arrived to ER with oxygen via NC, currently 94% on 4 L NC. Pt opens eyes and moans to painful stimuli. EMS also reports last dialysis was 03/30/20 and pt refused to go to dialysis due to having right knee pain. Pt's also reported to EMS that pt has not been eating since Saturday. EMS reports FSBG of 76 and reported they turned off insulin pump. 20G to L hand by EMS. 13:45 Onset of symptoms was April 04, 2020. aa5 13:45 Acuity: BRANDON 2 aa5 13:45 Method Of Arrival: EMS: [facility] aa5 18:46 Coronavirus screen: Client denies travel out of the [place] in the last 14 days. At this jl7 time, the client does not indicate any symptoms associated with coronavirus-19. Ebola Screen: No symptoms or risks identified at this time. Initial Sepsis Screen: Does the patient meet any 2 criteria? No. Patient's initial sepsis screen is negative. Does the patient have a suspected source of infection? No. Patient's initial sepsis screen is negative. Risk Assessment: Do you want to hurt yourself or someone else? Patient reports no desire to harm self or others. Historical: - Allergies: 13:45 PENICILLINS; aa5 - PMHx: 13:45 Diabetes - IDDM; Fibula Shaft Fracture; Hypertension; Thyroid problem; Tibial Shaft aa5 Fracture; ESRD; Dialysis MWF; COPD; - Immunization history:: Adult Immunizations unknown. - Family history:: not pertinent. - Social history:: Smoking status: unknown. Screenin:30 Abuse screen: Denies threats or abuse. Denies injuries from another. Nutritional jl7 screening: No deficits noted. Tuberculosis screening: No symptoms or risk factors identified. Fall Risk Fall in past 12 months (25 points). IV access (20 points). Gait- Weak (10 pts.). Total Dhaliwal Fall Scale indicates High Risk Score (45 or more points). Fall prevention measures have been instituted. Side Rails Up X 2 Placed Close to Nursing Station Frequent Obs/Assessments Occuring Family Present and informed to notify staff if the need to leave the bedside As available patient and family educated on Fall Prevention Program and Strategies. Assessment: 15:30 General: Appears distressed, uncomfortable, ill, Behavior is agitated, restless. Pain: jl7 Unable to use pain scale. Does not appear to understand pain scale. Neuro: Level of Consciousness is awake, Oriented to none. Cardiovascular: Patient's skin is warm and dry. Respiratory: Airway is patent Respiratory effort is even, unlabored, Respiratory pattern is regular, symmetrical. : Parent/caregiver report the patient having Pt does not make urine. Derm: Skin is dry, Skin is dusky, Skin temperature is warm. 16:30 Reassessment: Patient appears in no apparent distress at this time. No changes from jl7 previously documented assessment. Patient and/or family updated on plan of care and expected duration. Pain level reassessed. Pt still not answering questions, is able to shake her head to confirm comfort with placing warm blankets. 16:35 Reassessment: Pt moved to treatment room 5. jl7 17:27 Reassessment: dialysis at bedside at this time. tw2 19:05 General: Appears in no apparent distress. uncomfortable. rr5 19:05 Neuro: Level of Consciousness is awake, Oriented to none. Cardiovascular: Capillary rr5 refill < 3 seconds Patient's skin is warm and dry. Respiratory: Airway is patent Respiratory effort is even, unlabored, Respiratory pattern is regular, symmetrical. GI: No signs and/or symptoms were reported involving the gastrointestinal system. : ongoing dialysis at bedside. EENT: No signs and/or symptoms were reported regarding the EENT system. Derm: Skin is intact, is healthy with good turgor, Skin temperature is warm. Musculoskeletal: Capillary refill < 3 seconds. 19:20 Reassessment: hospitalist Robel informed for the manual BP 190/80 mmHg. rr5 20:59 Reassessment: Dialysis nurse remains at bedside. ea 21:30 Reassessment: dialysis procedure done, report given by dialysis nurse fluid pulled 400. rr5 23:05 Reassessment: fritz hull [phone]. rr5 04/05 07:03 General: Appears distressed, Behavior is agitated. Neuro: Level of Consciousness is rb1 awake, Oriented to none. Cardiovascular: Patient's skin is warm and dry. Respiratory: Airway is patent Respiratory effort is even, unlabored, Respiratory pattern is regular, symmetrical. 07:27 Reassessment: PT. moved to ICU. rb1 Vital Signs: 04/04 13:40 BP 145 / 78; Pulse 72; Resp 19; Pulse Ox 88% on R/A; jl7 14:00 BP 138 / 56; Pulse 78; Resp 24 S; Temp 97.8(TE); Pulse Ox 96% on 2 lpm NC; jl7 14:56 Weight 58.97 kg (R); iw 15:00 BP 122 / 49; Pulse 72; Resp 19; Pulse Ox 99% on 2 lpm NC; jl7 16:00 BP 143 / 57; Pulse 74; Resp 21; Pulse Ox 100% ; jl7 16:30 BP 134 / 51; Pulse 75; Resp 17; Pulse Ox 99% on 2 lpm NC; tw2 17:00 BP 132 / 69; Pulse 74; Resp 14; Pulse Ox 99% on 2 lpm NC; jl7 17:28 BP 134 / 54; Pulse 74; Resp 17; Pulse Ox 97% on 2 lpm NC; tw2 18:00 BP 125 / 55; Pulse 77; Resp 18 S; Pulse Ox 97% on 2 lpm NC; jl7 18:30 BP 114 / 90; Pulse 80; Resp 16; Pulse Ox 99% on 2 lpm NC; jl7 19:00 BP 229 / 183 (auto/); Pulse 85; Resp 19; Pulse Ox 98% 2 lpm ; rr5 19:18 BP 190 / 80 (man/); Pulse 85; Resp 19; Temp 98; Pulse Ox 99% on 2 lpm NC; rr5 20:11 BP 140 / 36; Pulse 88; Resp 21; Pulse Ox 99% on 2 lpm NC; rr5 21:34 BP 168 / 60; Pulse 96; Resp 20; Pulse Ox 98% on 2 lpm NC; rr5 22:30 BP 169 / 74; Pulse 97; Resp 19; Pulse Ox 98% on 2 lpm NC; rr5 ED Course: 13:45 Patient arrived in ED. aa5 13:45 Arm band placed on Patient placed in an exam room, on a stretcher. aa5 13:46 Lionel Porras MD is Attending Physician. leroy 13:55 Triage completed. aa5 14:00 Patient has correct armband on for positive identification. Placed in gown. Bed in low jl7 position. Call light in reach. Side rails up X2. it quality analyst on. Pulse ox on. NIBP on. Warm blanket given. 14:00 Maintain EMS IV. Dressing intact. Good blood return noted. Site clean \T\ dry. Gauge \T\ jl 7 site: 20 left wrist. 14:15 Nettie James RN is Primary Nurse. jl7 14:30 CT Traumagram (Head C Spine CAP wo con) In Process Unspecified. EDMS 14:48 XRAY Chest (1 view) In Process Unspecified. EDMS 15:05 Initial lab(s) drawn, by ma, sent to lab. Inserted saline lock: 20 gauge in left wrist, aa5 using aseptic technique. Blood collected. 15:15 José Salguero is Hospitalizing Provider. leroy 18:46 No provider procedures requiring assistance completed. jl7 19:00 Report given to JAYCEE Rose and JAYCEE Lucia. tw2 19:30 Primary Nurse role handed off by Nettie James RN mw2 19:57 Khari Mcrae RN is Primary Nurse. rr5 21:57 Patient admitted, IV remains in place. ea Administered Medications: 13:51 Drug: D50W 25 ml Route: IVP; Site: left hand; aa5 14:00 Follow up: Response: Blood sugar is elevated jl7 15:11 Drug: D50W 50 ml Route: IVP; Site: left wrist; aa5 17:36 Follow up: Response: No adverse reaction tw2 15:13 Drug: SOLU-Medrol 2 mg/kg Route: IVP; Site: left wrist; aa5 16:00 Follow up: Response: No adverse reaction jl7 15:14 Drug: Insulin Regular Human 10 units {Co-Signature: tw2 (Molly Lopez RN).} Route: IVP; aa5 Site: left hand; 15:20 Follow up: Response: No adverse reaction tw2 15:15 Drug: Sodium Bicarbonate 0.5 mEq Route: IVP; Site: left hand; aa5 17:36 Follow up: Response: No adverse reaction tw2 15:20 Drug: Calcium Gluconate 1 grams Route: IVPB; Infused Over: 15 mins; Site: left wrist; aa5 15:35 Follow up: Response: No adverse reaction; IV Status: Completed infusion tw2 15:25 Drug: NS 0.9% 1000 ml Route: IV; Rate: 125 ml/hr; Site: left wrist; aa5 18:48 Follow up: IV Status: Infusion continued upon admission jl7 15:25 Drug: Cefepime 1 grams Route: IVPB; Rate: 200 ml/hr; Infused Over: 30 mins; Site: left aa5 wrist; 15:30 Follow up: Response: No adverse reaction; IV Status: Completed infusion jl7 15:25 Drug: Xopenex 2.5 mg Route: Inhalation; aa5 15:25 Drug: AtroVENT Aerosol 0.5 mg Route: Inhalation; aa5 15:25 Drug: Albuterol 5 mg Route: Inhalation; aa5 15:32 Not Given (Pt unable to tolerate PO at this time. was notified ): Kayexalate 30 aa5 grams PO once 16:20 Drug: vancoMYCIN 1 grams Route: IVPB; Infused Over: 2 hrs; Site: left wrist; jl7 18:20 Follow up: Response: No adverse reaction; IV Status: Completed infusion jl7 Outcome: 15:16 Decision to Hospitalize by Provider. leroy 20:58 Instructed on the need for admit. patricia 21:57 Admitted to ER Hold. Please see [facility] for further documentation. ea 21:57 Condition: stable 04/05 07:27 Patient left the ED. rb1 Signatures: Dispatcher [employer] EDMS Lionel Porras MD MD cha Williams, Irene, RN RN iw Rosa Snyder RN RN aa5 Cynthia Villa, RN RN rb1 Molly Lopez RN RN tw2 Nettie James RN RN jl7 Janet Parikh RN RN ea [place], MyKena 2 Khari Mcrae RN RN rr5 Molly Lopez RN tw2 Corrections: (The following items were deleted from the chart) 04/04 15:32 15:05 Inserted saline lock: 20 gauge in right wrist, using aseptic technique. Blood aa5 collected. [facility] : 15:11 D50W 50 ml IVP in right wrist aa5 [facility] : 15:15 Sodium Bicarbonate 0.5 mEq IVP in right hand aa5 [facility] : 15:20 Calcium Gluconate 1 grams IVPB in right wrist over 15 mins aa5 [facility] 15:34 15:25 Cefepime 1 grams IVPB at 200 ml/hr in right wrist over 30 mins [place] [id number] 15: 15:13 SOLU-Medrol 2 mg/kg IVP in right wrist [place] [id number] 15:35 15:25 NS 0.9% 1000 ml IV at 125 ml/hr in right wrist 5 [facility] 21:35 21:34 BP 168 / 60; Pulse 96bpm; Resp 20bpm; Pulse Ox 98%; rr5 rr5
--- NOTE | 2020-04-04 15:17 | EDPHYS ---
Physician Documentation [facility] Name: Jens Hightower Age: 65 yrs Sex: Female : 1955 Arrival Date: 04/04/2020 Time: 13:45 Bed 5 Private MD: ED Physician Lionel Porras HPI: 04/04 14:02 This 65 yrs old Female presents to ER via EMS with complaints of Altered leroy Mental Status. 14:02 The patient presents with confusion, decreased mental status. Onset: The leroy symptoms/episode began/occurred 3 day(s) ago. Possible causes: CVA or TIA, head injury, low blood sugar, seizure, sepsis, unknown. Associated signs and symptoms: Pertinent positives: confusion. Current symptoms: In the emergency department the patient's symptoms have worsened, moderately, is more confused. Patient's baseline: Neuro: alert and fully oriented, Motor: no deficits, Ambulation: unable to walk, Speech: the patient makes incomprehensible sounds, The patient has a previous history of CVA, hypoglycemic reactions. The patient has not experienced similar symptoms in the past. Historical: - Allergies: 13:45 PENICILLINS; aa5 - PMHx: 13:45 Diabetes - IDDM; Fibula Shaft Fracture; Hypertension; Thyroid problem; Tibial Shaft aa5 Fracture; ESRD; Dialysis MWF; COPD; - Immunization history:: Adult Immunizations unknown. - Family history:: not pertinent. - Social history:: Smoking status: unknown. ROS: 14:02 Constitutional: Negative for fever, chills, and weight loss, Eyes: Negative for injury, leroy pain, redness, and discharge, ENT: Negative for injury, pain, and discharge, Neck: Negative for injury, pain, and swelling, Cardiovascular: Negative for chest pain, palpitations, and edema, Abdomen/GI: Negative for abdominal pain, nausea, vomiting, diarrhea, and constipation, Back: Negative for injury and pain, : Negative for injury, bleeding, discharge, and swelling, MS/Extremity: Negative for injury and deformity, Skin: Negative for injury, rash, and discoloration, Psych: Negative for depression, anxiety, suicide ideation, homicidal ideation, and hallucinations, Allergy/Immunology: Negative for hives, rash, and allergies, Endocrine: Negative for neck swelling, polydipsia, polyuria, polyphagia, and marked weight changes, Hematologic/Lymphatic: Negative for swollen nodes, abnormal bleeding, and unusual bruising. 14:02 Respiratory: Positive for cough, "sounds productive", dyspnea on exertion, shortness of breath. 14:02 Neuro: Positive for altered mental status, weakness. Exam: 14:02 Constitutional: This is a well developed, well nourished patient who is awake, alert, leroy and in no acute distress. Head/Face: Normocephalic, atraumatic. Eyes: Pupils equal round and reactive to light, extra-ocular motions intact. Lids and lashes normal. Conjunctiva and sclera are non-icteric and not injected. Cornea within normal limits. Periorbital areas with no swelling, redness, or edema. ENT: Nares patent. No nasal discharge, no septal abnormalities noted. Tympanic membranes are normal and external auditory canals are clear. Oropharynx with no redness, swelling, or masses, exudates, or evidence of obstruction, uvula midline. Mucous membranes moist. Neck: Trachea midline, no thyromegaly or masses palpated, and no cervical lymphadenopathy. Supple, full range of motion without nuchal rigidity, or vertebral point tenderness. No Meningismus. Chest/axilla: Normal chest wall appearance and motion. Nontender with no deformity. No lesions are appreciated. Respiratory: Lungs have equal breath sounds bilaterally, clear to auscultation and percussion. No rales, rhonchi or wheezes noted. No increased work of breathing, no retractions or nasal flaring. Back: No spinal tenderness. No costovertebral tenderness. Full range of motion. Female : Normal external genitalia. Skin: Warm, dry with normal turgor. Normal color with no rashes, no lesions, and no evidence of cellulitis. MS/ Extremity: Pulses equal, no cyanosis. Neurovascular intact. Full, normal range of motion. Psych: Awake, alert, with orientation to person, place and time. Behavior, mood, and affect are within normal limits. 14:02 Cardiovascular: Rate: normal, Rhythm: regular, Heart sounds: normal, JVD: is not appreciated. 14:02 Respiratory: mild respiratory distress is noted, Respirations: labored breathing, that is mild, Breath sounds: bronchial sounds, decreased breath sounds, Respiratory rate: 22 14:02 Neuro: Orientation: unable to test, Mentation: slow to respond, confused, Memory: unable to test, Cranial nerves: Cerebellar function: is grossly normal, Motor: moves all fours, Strength is 3/5 in the right arm, left arm, right leg and left leg, Gait: not tested. seizure activity, is not displayed by the patient. 15:07 ECG was reviewed by the Attending Physician. [facility] Vital Signs: 13:40 BP 145 / 78; Pulse 72; Resp 19; Pulse Ox 88% on R/A; jl7 14:00 BP 138 / 56; Pulse 78; Resp 24 S; Temp 97.8(TE); Pulse Ox 96% on 2 lpm NC; jl7 14:56 Weight 58.97 kg (R); iw 15:00 BP 122 / 49; Pulse 72; Resp 19; Pulse Ox 99% on 2 lpm NC; jl7 16:00 BP 143 / 57; Pulse 74; Resp 21; Pulse Ox 100% ; jl7 16:30 BP 134 / 51; Pulse 75; Resp 17; Pulse Ox 99% on 2 lpm NC; tw2 17:00 BP 132 / 69; Pulse 74; Resp 14; Pulse Ox 99% on 2 lpm NC; jl7 17:28 BP 134 / 54; Pulse 74; Resp 17; Pulse Ox 97% on 2 lpm NC; tw2 18:00 BP 125 / 55; Pulse 77; Resp 18 S; Pulse Ox 97% on 2 lpm NC; jl7 18:30 BP 114 / 90; Pulse 80; Resp 16; Pulse Ox 99% on 2 lpm NC; jl7 19:00 BP 229 / 183 (auto/); Pulse 85; Resp 19; Pulse Ox 98% 2 lpm ; rr5 19:18 BP 190 / 80 (man/); Pulse 85; Resp 19; Temp 98; Pulse Ox 99% on 2 lpm NC; rr5 20:11 BP 140 / 36; Pulse 88; Resp 21; Pulse Ox 99% on 2 lpm NC; rr5 21:34 BP 168 / 60; Pulse 96; Resp 20; Pulse Ox 98% on 2 lpm NC; rr5 22:30 BP 169 / 74; Pulse 97; Resp 19; Pulse Ox 98% on 2 lpm NC; rr5 MDM: 13:46 Patient medically screened. [facility] 04/04 14:00 Order name: Basic Metabolic Panel; Complete Time: 15:14 [facility] 04/04 14:00 Order name: CBC with Diff; Complete Time: 14:47 [facility] 04/04 14:00 Order name: LFT's; Complete Time: 15:14 [facility] 04/04 14:00 Order name: Magnesium; Complete Time: 15:14 [facility] 04/04 14:00 Order name: NT PRO-BNP; Complete Time: 15:14 [facility] 04/04 14:00 Order name: PT-INR; Complete Time: 14:47 [facility] 04/04 14:00 Order name: Troponin (emerg Dept Use Only); Complete Time: 15:14 [facility] 04/04 14:00 Order name: Lipase; Complete Time: 14:47 [facility] 04/04 14:00 Order name: Urine Culture [facility] 04/04 14:00 Order name: Procalcitonin; Complete Time: 15:05 [facility] 04/04 14:00 Order name: Lactate [facility] 04/04 14:00 Order name: Blood Culture Adult (2) [facility] 04/04 14:07 Order name: Flu [facility] 04/04 14:00 Order name: XRAY Chest (1 view); Complete Time: 15:05 [facility] 04/04 14:00 Order name: CT Traumagram (Head C Spine CAP wo con); Complete Time: 15:01 [facility] 04/04 15:02 Order name: Glucose, Ancillary Testing; Complete Time: 15:05 [facility] 04/04 15:04 Order name: Glucose, Ancillary Testing; Complete Time: 15:05 [facility] 04/04 16:42 Order name: Glucose, Ancillary Testing [facility] 04/04 16:52 Order name: SARS-COV-2 RT PCR [facility] 04/04 21:37 Order name: Potassium [facility] 04/05 04:35 Order name: Glucose, Ancillary Testing [facility] 04/05 05:08 Order name: CBC with Automated Diff [facility] 04/05 05:28 Order name: Basic Metabolic Panel [facility] 04/05 05:48 Order name: Manual Differential [facility] 04/05 05:48 Order name: Lactate [facility] 04/05 05:58 Order name: Procalcitonin [facility] 04/04 14:00 Order name: EKG; Complete Time: 14:01 [facility] 04/04 14:00 Order name: Cardiac monitoring; Complete Time: 15:06 [facility] 04/04 14:00 Order name: EKG - Nurse/Tech; Complete Time: 15:06 [facility] 04/04 14:00 Order name: IV Saline Lock; Complete Time: 15:06 [facility] 04/04 14:00 Order name: Labs collected and sent; Complete Time: 15: [facility] 04/04 14:00 Order name: O2 Per Protocol; Complete Time: 15: [facility] 04/04 14:00 Order name: O2 Sat Monitoring; Complete Time: 15: [facility] 04/04 15:01 Order name: IV Saline Lock - Large Bore; Complete Time: 15:28 [facility] EC: Rate is 72 beats/min. Rhythm is regular. QRS Pandora is Normal. MN interval is normal. QRS leroy interval is normal. QT interval is normal. No Q waves. T waves are Peaked. No ST changes noted. Clinical impression: NSR w/ Non-specific ST/T Changes and Suggests hyperkalemia. Interpreted by me. Reviewed by me. Administered Medications: 13:51 Drug: D50W 25 ml Route: IVP; Site: left hand; aa5 14:00 Follow up: Response: Blood sugar is elevated jl7 15:11 Drug: D50W 50 ml Route: IVP; Site: left wrist; aa5 17:36 Follow up: Response: No adverse reaction tw2 15:13 Drug: SOLU-Medrol 2 mg/kg Route: IVP; Site: left wrist; aa5 16:00 Follow up: Response: No adverse reaction jl7 15:14 Drug: Insulin Regular Human 10 units {Co-Signature: tw2 (Molly Lopez RN).} Route: IVP; aa5 Site: left hand; 15:20 Follow up: Response: No adverse reaction tw2 15:15 Drug: Sodium Bicarbonate 0.5 mEq Route: IVP; Site: left hand; aa5 17:36 Follow up: Response: No adverse reaction tw2 15:20 Drug: Calcium Gluconate 1 grams Route: IVPB; Infused Over: 15 mins; Site: left wrist; aa5 15:35 Follow up: Response: No adverse reaction; IV Status: Completed infusion tw2 15:25 Drug: NS 0.9% 1000 ml Route: IV; Rate: 125 ml/hr; Site: left wrist; aa5 18:48 Follow up: IV Status: Infusion continued upon admission jl7 15:25 Drug: Cefepime 1 grams Route: IVPB; Rate: 200 ml/hr; Infused Over: 30 mins; Site: left aa5 wrist; 15:30 Follow up: Response: No adverse reaction; IV Status: Completed infusion jl7 15:25 Drug: Xopenex 2.5 mg Route: Inhalation; aa5 15:25 Drug: AtroVENT Aerosol 0.5 mg Route: Inhalation; aa5 15:25 Drug: Albuterol 5 mg Route: Inhalation; aa5 15:32 Not Given (Pt unable to tolerate PO at this time. MD was notified ): Kayexalate 30 aa5 grams PO once 16:20 Drug: vancoMYCIN 1 grams Route: IVPB; Infused Over: 2 hrs; Site: left wrist; jl7 18:20 Follow up: Response: No adverse reaction; IV Status: Completed infusion jl7 Disposition: 04/04/20 15:16 Hospitalization ordered by José Salguero for Inpatient Admission. Preliminary diagnosis are Altered mental status, unspecified, Hypoglycemia, unspecified, Type 1 diabetes mellitus, End stage renal disease - on HD, Hyperkalemia. - Bed requested for [facility] ER HOLD. - Status is Inpatient Admission. rb1 - Condition is Serious. - Problem is new. - Symptoms have improved. Signatures: Dispatcher [employer] EDDC Lionel Porras MD MD cha Calderon, Audri, RN RN aa5 Va Ruiz RN RN tl1 Cynthia Villa, RN RN rb1 Nettie James RN RN jl7 Molly Lopez RN tw2 Molly Lopez RN tw2 Corrections: (The following items were deleted from the chart) 15:50 14:08 CORONAVIRUS+MR.LAB.BRZ ordered. [facility] 19:06 15:16 Hospitalization Ordered by José Salguero for Inpatient Admission. Preliminary tl1 diagnosis is Altered mental status, unspecified; Hypoglycemia, unspecified; Type 1 diabetes mellitus; End stage renal disease - on HD; Hyperkalemia. Bed requested for Telemetry/MedSurg (Inpatient). Status is Inpatient Admission. Condition is Serious. Problem is new. Symptoms have improved. [facility] 04/05 07:27 04/04 19:06 04/04/2020 15:16 Hospitalization Ordered by José Salguero for Inpatient rb1 Admission. Preliminary diagnosis is Altered mental status, unspecified; Hypoglycemia, unspecified; Type 1 diabetes mellitus; End stage renal disease - on HD; Hyperkalemia. Bed requested for [facility] ER HOLD. Status is Inpatient Admission. Condition is Serious. Problem is new. Symptoms have improved. tl1
[2020-04-04] MEDS ORDERED: METHYLPREDNISOLONE 125 MG INJ ONE (15:18)
[2020-04-04] MEDS ORDERED: SODIUM BICARB 50 MEQ/50ML VIAL ONE (15:19)
[2020-04-04] MEDS ORDERED: CALCIUM GLUCONATE 1 GM IVPB 1 GM/50 ML BAG IV ONE (15:20)
[2020-04-04] MEDS ORDERED: NA CHLORIDE 0.9% 1,000 ML IV PRN (15:24)
[2020-04-04] MEDS ORDERED: MANNITOL 25% 12.5 GM/50 ML VIAL IV PRN (15:24)
[2020-04-04] MEDS ORDERED: LEVALBUTEROL 1.25 MG/3 ML NEB ONE (15:46)
[2020-04-04] MEDS ORDERED: VANCOMYCIN/NS 1 gm 1 GM/250 ML BAG IVPB ONE (16:00)
[2020-04-04] MEDS ORDERED: ALBUMIN HUMAN 25% 50 ML IV SCH (16:00)
--- NOTE | 2020-04-04 16:10 | P.HP ---
Certification for Inpatient Patient admitted to: Inpatient With expected LOS: >2 Midnights Practitioner: I am a practitioner with admitting privileges, knowledge of patient current condition, hospital course, and medical plan of care. Services: Services provided to patient in accordance with Admission requirements found in Title 42 Section 412.3 of the Code of Federal Regulations Patient History Date of Service: 04/04/20 Reason for admission: Altered mental status History of Present Illness: 65-year-old woman with a history of diabetes mellitus type 1 on insulin therapy, end-stage renal disease on hemodialysis was brought to the emergency department due to altered mental status and grunting. According to the spouse, patient has missed her dialysis since Saturday last week. She fell from a wheelchair and twisted her right knee last week and was in the emergency department where in the showed moderate right knee effusion. She was discharged from the emergency department. In the ED today, patient noted to be hypoglycemic with a blood sugar of 64. Potassiums up to 7.3 and BUN up to 90. Patient was confused during my examination in the ED and could not provide any history. She was given emergent treatment for hyperkalemia which included D50, insulin, IV bicarb, calcium gluconate and albuterol neb. Tours Hostess Dr. Doyle has been contacted who is planning on emergent hemodialysis. Patient's insulin pump has been discontinued. Patient is admitted for further management. Allergies Penicillins Allergy (Verified 08/30/17 10:31) Hives Home Medications: Ascorbic Acid [Vitamin C*] 1,000 mg PO BID 09/30/14 B Complex with Vitamin C [Super B Complex with C] 1 cap PO DAILY 09/30/14 Biotin [Nail-Ex] 5,000 mg PO DAILY 09/30/14 Cholecalciferol (Vitamin D3) [Vitamin D3] 5,000 unit PO DAILY 09/30/14 Hydralazine [Apresoline*] 100 mg PO BID 09/30/14 Isosorbide Mononitrate [Isosorbide Mononitrate ER] 120 mg PO BEDTIME 09/30/14 Levothyroxine [Synthroid*] 150 mcg PO [id number] 09/30/14 Losartan Potassium [Cozaar*] 50 mg PO BID 09/30/14 Nifedipine [Procardia Xl] 90 mg PO BID 09/30/14 Pravastatin Sodium [Pravachol] 20 mg PO BEDTIME 09/30/14 Pyridoxine [Vitamin B-6*] 100 mg PO DAILY 09/30/14 Sevelamer Carbonate [Renvela*] 800 mg PO TID 09/30/14 carvediloL [Coreg*] 25 mg PO BID 09/30/14 Ferrous Sulfate [Ferrous Sulfate*] 2 tab PO DAILY 10/12/14 Esomeprazole Magnesium 40 mg PO BID 06/14/17 Insulin Aspart [Novolog] See Protocol SQ [facility] 06/14/17 Liothyronine Sodium [Cytomel] 5 mcg PO BID 06/14/17 Doxazosin [Cardura*] 1 mg PO BEDTIME 06/26/18 Fish Oil/Dha/Epa [Fish Oil 1,200 mg Fish Oil] 1 each PO DAILY 06/26/18 Folic Acid/Vit B Complex and C [Dialyvite 800 Chewable Wafer] 800 mcg PO DAILY 06/26/18 Apixaban [Eliquis] 2.5 mg PO BID #70 tablet 07/01/18 - Past Medical/Surgical History Diabetic: Yes -: dm -: htn -: End-stage renal disease on hemodialysis -: Hypothyroidism -: kidney transplant -: cataract sx -: breast augmentation - Family History Family History: Reviewed- Non-Contributory - Social History Alcohol use: No CD- Drugs: No Caffeine use: Yes Review of Systems is unable to be obtained (Due to altered mental status.) Physical Examination - Physical Exam General: Confused HEENT: Atraumatic, PERRLA, Mucous membr. moist/pink, Sclerae nonicteric Neck: Supple, JVD not distended Respiratory: Crackles/rales (Bibasilar crackles, no rhonchi or wheezes.) Cardiovascular: No edema, Regular rate/rhythm, Normal S1 S2 Gastrointestinal: Normal bowel sounds, Soft and benign, Non-distended, No tenderness Musculoskeletal: Other (Right knee in a brace) Integumentary: Other (Multiple bruises on bilateral legs.) Neurological: Other (Nonfocal.) - Studies Laboratory Data (last 24 hrs) 04/04/20 14:20: Lipase 325 04/04/20 14:20: PT 12.5, INR 1.06 04/04/20 14:20: WBC 6.8, Hgb 14.8, Hct 46.3 H, Plt Count 240 04/04/20 14:20: Sodium 130 L, Potassium 7.3 H*, BUN 90 H, Creatinine 11.10 H*, Glucose 78, Magnesium 3.1 H, Total Bilirubin 0.5, AST 29, ALT 13, Alkaline Phosphatase 130 H Assessment and Plan - Problems (Diagnosis) (1) Hyperkalemia Current Visit: Yes Status: Acute (2) Metabolic encephalopathy Current Visit: Yes Status: Acute (3) ESRD (end stage renal disease) on dialysis Onset Date: 06/17/17 Current Visit: No Status: Chronic (4) Hypothyroidism Onset Date: 06/27/18 Current Visit: No Status: Chronic Qualifiers: Hypothyroidism type: unspecified (5) Type 1 diabetes mellitus on insulin therapy Onset Date: 06/27/18 Current Visit: No Status: Chronic - Plan Admit patient. Nephrology consulted for emergent hemodialysis. Altered mental status likely secondary to uremic encephalopathy. Hemodialysis schedule per nephrology. Check potassium level and EKG after hemodialysis. Empiric IV antibiotics IV Levaquin and IV vancomycin. Keep NPO. Hold insulin pump. Manage blood sugar with insulin sliding scale. Follow blood cultures obtained in the ED. - Advance Directives Does patient have a Living Will: No Does patient have a Durable POA for Healthcare: No
[2020-04-04] MEDS: HEPARIN 5000 UNIT/ML 1 ML VIAL SQ SCH (22:22)
[2020-04-04] MEDS: INSULIN -REGULAR HUMAN 50 UNIT/0.5 ML ML SQ SCH (22:22)
[2020-04-04] MEDS ORDERED: ONDANSETRON 4 MG/2 ML VIAL IV PRN (22:22)
[2020-04-04] MEDS ORDERED: Levofloxacin 250mg IV 250 MG/50 ML BAG IV ONE (22:22)
[2020-04-04] MEDS ORDERED: Levofloxacin500mg IV 500 MG/100 ML BAG IV ONE (22:44)
[2020-04-04] MEDS ORDERED: HEPARIN 5000 UNIT/ML 1 ML VIAL ONE (22:44)
[2020-04-04 23:16] VITALS: BMI 21.6
[2020-04-05] MEDS: HEPARIN 5000 UNIT/ML 1 ML VIAL SQ SCH ×3 (01:00→17:17)
[2020-04-05 05:06] LABS: Absolute Lymphocytes (CBC) 0.4 K/uL (0.7-4.9); Basophils % 0.1 % (0-1.3); Lymphocytes % 8.5 % (15.3-44.8); MPV 9.6 fL (7.6-11.3); RBC Red Blood Cell Count 4.62 M/uL (3.86-4.86)
[2020-04-05] MEDS ORDERED: ACETAMINOPHEN 650MG/RECT SUPP PR PRN (05:07)
[2020-04-05] MEDS ORDERED: ACETAMINOPHEN 650MG/RECT SUPP PR ONE (05:23)
[2020-04-05 05:28] LABS: Potassium 5.8 mmol/L (3.5-5.1)
[2020-04-05 05:48] LABS: Blood Morphology Comment NOT SEEN (NOT SEEN); Platelet Estimate ADEQ
[2020-04-05] MEDS: INSULIN -REGULAR HUMAN 50 UNIT/0.5 ML ML SQ SCH ×5 (09:23→23:31)
[2020-04-05] MEDS ORDERED: INSULIN -REGULAR HUMAN 50 UNIT/0.5 ML ML ONE ×2 (09:35→23:44)
--- NOTE | 2020-04-05 10:09 | EKG ---
Test Date: 2020-04-04 Test Time: 14:58:43 Pressure Testing Technician: LUIS ARMANDO MEASUREMENT RESULTS: Intervals: Rate: 72 WV: 170 QRSD: 104 QT: 440 QTc: 481 [place]: P: 55 WV: 170 QRS: -73 T: 79 INTERPRETIVE STATEMENTS: Normal sinus rhythm Left anterior fascicular block Prolonged QT Abnormal ECG Compared to ECG 06/14/2017 05:54:26 Prolonged QT interval now present Electronically Signed On 04-05-20 10:06:50 CDT by Jerry Olea
--- NOTE | 2020-04-05 12:58 | P.PN ---
Subjective Date of Service: 04/05/20 Chief Complaint: Altered mental status Subjective: No new changes (minimally responsive - grunting, does answer "no" when asked if in pain) Review of Systems is unable to be obtained Physical Examination - Vital Signs Temperature: 97.6 F Blood Pressure: 132/62 Pulse: 83 Respirations: 19 Pulse Ox (%): 100 - Physical Exam General: Other (minimally responsive, squeezes hand on command) HEENT: Other (dry mucous membranes) Respiratory: Diminished (at bases) Cardiovascular: No edema Gastrointestinal: Soft and benign, Non-distended, No tenderness Musculoskeletal: No erythema Integumentary: No rashes - Studies Laboratory Data (last 24 hrs) 04/04/20 14:20: Lipase 325 04/04/20 14:20: PT 12.5, INR 1.06 04/04/20 14:20: WBC 6.8, Hgb 14.8, Hct 46.3 H, Plt Count 240 04/04/20 14:20: Sodium 130 L, Potassium 7.3 H*, BUN 90 H, Creatinine 11.10 H*, Glucose 78, Magnesium 3.1 H, Total Bilirubin 0.5, AST 29, ALT 13, Alkaline Phosphatase 130 H Microbiology Data (last 24 hrs): 04/04/20 15:20 Nasopharnyx Influenza Type A Antigen Screen - Final 04/04/20 15:20 Nasopharnyx Influenza Type B Antigen Screen - Final Assessment & Plan Physician Review Additional Text: Hyperkalemia Metabolic encephalopathy likely secondary to uremia ESRD (end stage renal disease) on dialysis Hypothyroidism Type 1 diabetes mellitus on insulin therapy Nephrology consulted for emergent hemodialysis - received yesterday, remains hyperkalemic (but improved), for HD today as well Altered mental status likely secondary to uremic encephalopathy, more responsive today but minimally Hemodialysis schedule per nephrology. Empiric IV antibiotics IV Levaquin and IV vancomycin - febrile this morning, possible pneumonia - levaquin q48 Keep NPO for now, Hold insulin pump, manage blood sugar with insulin sliding scale. Follow blood cultures obtained in the ED. Time Spent Managing Pts Care (In Minutes): 35
[2020-04-05] MEDS: HYDRALAZINE HCL 20 MG/ML VIAL IV PRN (14:18)
[2020-04-05] MEDS ORDERED: HYDRALAZINE HCL 20 MG/ML VIAL ONE (14:30)
[2020-04-05 16:41] LABS: Thyroid Stimulating Hormone 1.03 uIU/mL (0.360-3.740)
[2020-04-05] MEDS ORDERED: HEPARIN 5000 UNIT/ML 1 ML VIAL ONE ×2 (17:29→23:05)
[2020-04-05] MEDS ORDERED: GLUCAGON 1 MG/VIAL IM PRN (19:36)
[2020-04-05] MEDS ORDERED: D50W 25 GM/50 ML SYRINGE/VIAL IV PRN (19:36)
--- NOTE | 2020-04-05 20:26 | P.CNS ---
Date of Consult: 04/04/20 Reason for Consult: ESRD Requesting Physician: elvis weathers Chief Complaint: Altered mental status History of Present Illness: 65 yo WF CKD, HTN, DM presented to the ER with AMS after two missed HD sessions. Case reviewed with her . Anorexia for several days. Limited HPI/ ROS due to AMS. 65-year-old woman with a history of diabetes mellitus type 1 on insulin therapy, end-stage renal disease on hemodialysis was brought to the emergency department due to altered mental status and grunting. According to the spouse, patient has missed her dialysis since Saturday last week. She fell from a wheelchair and twisted her right knee last week and was in the emergency department where in the showed moderate right knee effusion. She was discharged from the emergency department. In the ED today, patient noted to be hypoglycemic with a blood sugar of 64. Potassiums up to 7.3 and BUN up to 90. Patient was confused during my examination in the ED and could not provide any history. She was given emergent treatment for hyperkalemia which included D50, insulin, IV bicarb, calcium gluconate and albuterol neb. [employer] Dr. Doyle has been contacted who is planning on emergent hemodialysis. Patient's insulin pump has been discontinued. Patient is admitted for further management. 14:02 This 65 yrs old Female presents to ER via EMS with complaints of Altered leroy Mental Status. 14:02 The patient presents with confusion, decreased mental status. Onset: The leroy symptoms/episode began/occurred 3 day(s) ago. Possible causes: CVA or TIA, head injury, low blood sugar, seizure, sepsis, unknown. Associated signs and symptoms: Pertinent positives: confusion. Current symptoms: In the emergency department the patient's symptoms have worsened, moderately, is more confused. Patient's baseline: Neuro: alert and fully oriented, Motor: no deficits, Ambulation: unable to walk, Speech: the patient makes incomprehensible sounds, The patient has a previous history of CVA, hypoglycemic reactions. The patient has not experienced similar symptoms in the past. Allergies Penicillins Allergy (Verified 08/30/17 10:31) Hives Home medications list reviewed: Yes Home Medications: Ascorbic Acid [Vitamin C*] 1,000 mg PO BID 09/30/14 B Complex with Vitamin C [Super B Complex with C] 1 cap PO DAILY 09/30/14 Biotin [Nail-Ex] 5,000 mg PO DAILY 09/30/14 Cholecalciferol (Vitamin D3) [Vitamin D3] 5,000 unit PO DAILY 09/30/14 Hydralazine [Apresoline*] 100 mg PO BID 09/30/14 Isosorbide Mononitrate [Isosorbide Mononitrate ER] 120 mg PO BEDTIME 09/30/14 Levothyroxine [Synthroid*] 150 mcg PO [id number] 09/30/14 Losartan Potassium [Cozaar*] 40 mg PO BID 09/30/14 Nifedipine [Procardia Xl] 90 mg PO BID 09/30/14 Pravastatin Sodium [Pravachol] 20 mg PO BEDTIME 09/30/14 carvediloL [Coreg*] 25 mg PO BID 09/30/14 Esomeprazole Magnesium 40 mg PO BID 06/14/17 Liothyronine Sodium [Cytomel] 5 mcg PO BID 06/14/17 Doxazosin [Cardura*] 1 mg PO BEDTIME 06/26/18 Fish Oil/Dha/Epa [Fish Oil 1,200 mg Fish Oil] 1 each PO DAILY 06/26/18 Folic Acid/Vit B Complex and C [Dialyvite 800 Chewable Wafer] 800 mcg PO DAILY 0 06/26/18 Ferric Citrate [Auryxia] 210 mg PO TID 04/05/20 Pyridoxine HCl (Vitamin B6) [Vitamin B6] 100 mg PO DAILY 04/05/20 - Past Medical/Surgical History Diabetic: Yes -: dm -: htn -: End-stage renal disease on hemodialysis -: Hypothyroidism -: kidney transplant -: cataract sx -: breast augmentation - Social History Smoking Status: Unknown if ever smoked Alcohol use: No CD- Drugs: No Caffeine use: Yes Review of Systems 10-point ROS is otherwise unremarkable General: Weakness, Malaise Neurological: Weakness Physical Examination Temp Pulse Resp BP Pulse Ox 98.9 F 68 21 H 149/51 H 92 04/05/20 17:00 04/05/20 18:00 04/05/20 18:00 04/05/20 18:00 04/05/20 18:00 General: In no apparent distress, Cooperative HEENT: Atraumatic Neck: Supple Respiratory: Clear to auscultation bilaterally Cardiovascular: No edema, Regular rate/rhythm Gastrointestinal: Soft and benign, Non-distended Musculoskeletal: No clubbing, Contractures Integumentary: No rashes, No cyanosis Neurological: Abnormal speech Blood work reviewed in the chart. Imagings Data: EXAM DESCRIPTION: RAD - Chest Single View - 04/04/2020 2:48 pm CLINICAL HISTORY: COUGH COMPARISON: June 2017 TECHNIQUE: AP portable chest image was obtained 04/04/2020 2:48 pm . FINDINGS: Chronic interstitial lung disease is present similar to comparison. Right lung field is clear of a focal mass or consolidation. Left lung field is mostly obscured by the dense overlying breast implant. Acute finding is doubtful. Heart and vasculature are normal. No measurable pleural effusion and no pneumothorax. No acute bony abnormality seen. No acute aortic findings suspected. IMPRESSION: Exam is limited as detailed but no acute cardiopulmonary process seen. Conclusions/Impression: A/ ESRD on HD Hyponatremia Hyperkalemia Acidosis HTN with CKD / CHF Diastolic CHF, chronic DM I with CKD Moderate malnutrition Anemia in CKD Toxic metabolic encephalopathy Lobar PNA? P/ Continue current POC and Medications. Acute HD ordered for hyperkalemia with AMS. Seen and examined on HD. Abx ordered. Admitted ICU. No NSAIDs. AM labs. Daily weight. Thank you kindly for the consultation. Case reviewed with Dr. Porras in the ER. Critical Care: Yes (>30min)
--- NOTE | 2020-04-05 20:51 | P.PN ---
Date of Service: 04/05/20 Vital Signs Temp Pulse Resp BP Pulse Ox 98.9 F 68 21 H 149/51 H 92 04/05/20 17:00 04/05/20 18:00 04/05/20 18:00 04/05/20 18:00 04/05/20 18:00 Medications Acetaminophen (Tylenol Suppository) 650 mg OK Q6H PRN PRN Reason: TEMP > 100' F Stop: 05/05/20 05:08 Last Admin: 04/05/20 05:17 Dose: 650 mg Documented by: Dextrose (Dextrose 50% Syringe/Vial) 12.5 gm IV PRN PRN; Protocol PRN Reason: HYPOGLYCEMIA Stop: 05/05/20 19:37 Glucagon (Glucagen) 1 mg IM 1X PRN; Protocol PRN Reason: HYPOGLYCEMIA Stop: 05/05/20 19:37 Heparin Sodium (Porcine) (Heparin 5,000 Units/Ml) 5,000 unit SQ Q8HR [facility] Stop: 05/04/20 22:23 Last Admin: 04/05/20 17:17 Dose: 5,000 unit Documented by: Hydralazine HCl (Apresoline) 10 mg IV Q6HP PRN PRN Reason: FOR SBP>160 OR DBP>100 MMHG Stop: 05/05/20 14:05 Last Admin: 04/05/20 14:18 Dose: 10 mg Documented by: Insulin Human Regular (Novolin -R) 0 unit SQ Q6HR [facility]; Protocol Stop: 05/06/20 00:01 Ondansetron HCl (Zofran) 4 mg IV Q6HP PRN PRN Reason: NAUSEA / VOMITING Stop: 05/04/20 22:23 Sodium Chloride (Normal Saline Flush) 10 ml IV BID [facility] Stop: 05/04/20 22:23 Last Admin: 04/05/20 20:35 Dose: 10 ml Documented by: Microbiology Results 04/04/20 15:25 Blood - Blood Aerobic Blood Culture - Preliminary No growth in 24 hours. 04/04/20 15:25 Blood - Blood Anaerobic Blood Culture - Preliminary No growth in 24 hours. 04/04/20 15:10 Blood - Blood Aerobic Blood Culture - Preliminary No growth in 24 hours. 04/04/20 15:10 Blood - Blood Anaerobic Blood Culture - Preliminary No growth in 24 hours. 04/04/20 15:20 Nasopharnyx Influenza Type A Antigen Screen - Final 04/04/20 15:20 Nasopharnyx Influenza Type B Antigen Screen - Final Assessment/ Plan: Nephrology CPS stable without CP or SOB. No acute events overnight. Limited IH/ ROS due to AMS Case reviewed with her nurse. Vitals, medications, blood work and imaging reviewed in the chart. General: In no apparent distress, Cooperative HEENT: Atraumatic Neck: Supple Respiratory: Clear to auscultation bilaterally Cardiovascular: No edema, Regular rate/rhythm Gastrointestinal: Soft and benign, Non-distended Musculoskeletal: No clubbing, Contractures Integumentary: No rashes, No cyanosis Neurological: Abnormal speech Blood work reviewed in the chart. Greater than 30min patient care. Imagings Data: EXAM DESCRIPTION: RAD - Chest Single View - 04/04/2020 2:48 pm CLINICAL HISTORY: COUGH COMPARISON: June 2017 TECHNIQUE: AP portable chest image was obtained 04/04/2020 2:48 pm . FINDINGS: Chronic interstitial lung disease is present similar to comparison. Right lung field is clear of a focal mass or consolidation. Left lung field is mostly obscured by the dense overlying breast implant. Acute finding is doubtful. Heart and vasculature are normal. No measurable pleural effusion and no pneumothorax. No acute bony abnormality seen. No acute aortic findings suspected. IMPRESSION: Exam is limited as detailed but no acute cardiopulmonary process seen. Conclusions/Impression: A/ ESRD on HD Hyponatremia Hyperkalemia Acidosis HTN with CKD / CHF Diastolic CHF, chronic DM I with CKD Moderate malnutrition Anemia in CKD Toxic metabolic encephalopathy Lobar PNA? P/ Continue current POC and Medications. Second acute HD ordered for hyperkalemia with AMS. Continue abx. Follow up cultures. Consider nutrition. Consider a repeat CXR. No NSAIDs. AM labs. Daily weight.
[2020-04-06] MEDS: HEPARIN 5000 UNIT/ML 1 ML VIAL SQ SCH ×3 (00:19→17:08)
[2020-04-06 04:42] LABS: Absolute Lymphocytes (CBC) 0.8 K/uL (0.7-4.9); Basophils % 0.8 % (0-1.3); Lymphocytes % 6.9 % (15.3-44.8); MPV 9.1 fL (7.6-11.3); RBC Red Blood Cell Count 4.61 M/uL (3.86-4.86)
[2020-04-06 05:15] LABS: Albumin 2.7 g/dL (3.4-5.0); Bilirubin Total 0.7 mg/dL (0.2-1.0); Magnesium 2.7 mg/dL (1.8-2.4); Phosphorus 6.2 mg/dL (2.5-4.9); Potassium 4.9 mmol/L (3.5-5.1); Protein, Total 6.8 g/dL (6.4-8.2); Uric Acid 4.2 mg/dL (2.6-6.0)
[2020-04-06] MEDS: INSULIN -REGULAR HUMAN 50 UNIT/0.5 ML ML SQ SCH ×4 (05:30→20:32)
[2020-04-06] MEDS ORDERED: INSULIN -REGULAR HUMAN 50 UNIT/0.5 ML ML ONE (05:43)
[2020-04-06] MEDS ORDERED: Levofloxacin500mg IV 500 MG/100 ML BAG IV SCH (07:00)
[2020-04-06] MEDS ORDERED: HEPARIN 5000 UNIT/ML 1 ML VIAL ONE (08:17)
[2020-04-06] MEDS ORDERED: GABAPENTIN 300 MG CAP ONE (08:17)
[2020-04-06] MEDS ORDERED: DIPHENOX/ATROP SULF 1 TAB PO ONE (08:18)
[2020-04-06] MEDS ORDERED: OCTREOTIDE ACETATE 100 MCG/ML ONE (08:19)
[2020-04-06] MEDS ORDERED: Levofloxacin500mg IV 500 MG/100 ML BAG IV ONE (08:19)
[2020-04-06] MEDS ORDERED: Meropenem 500 MG/100 ML BAG ONE (08:20)
[2020-04-06] MEDS ORDERED: NA CHLORIDE 0.9% 100 ML IV ONE (08:36)
--- NOTE | 2020-04-06 09:49 | RAD REPORT ---
EXAM DESCRIPTION: RAD - Chest Single View - 04/06/2020 6:00 am CLINICAL HISTORY: PNA? Chest pain. COMPARISON: Chest Single View dated 04/04/2020; Chest Pa And Lat (2 Views) dated 06/26/2017; Chest Si ngle View dated 06/14/2017; Chest Single View dated 11/09/2016 FINDINGS: Portable technique limits examination quality. Mild airspace opacity is seen in the left lower lobe with a small left pleural effusion, suspicious f or pneumonia. The heart is normal in size. No displaced fractures. IMPRESSION: Mild left lower lobe pneumonia.
[2020-04-06] MEDS: HYDRALAZINE HCL 20 MG/ML VIAL IV PRN ×2 (11:48→20:37)
--- NOTE | 2020-04-06 13:26 | P.PN ---
Subjective Date of Service: 04/06/20 Chief Complaint: Altered mental status Subjective: Improving (More alert this morning, able to talk in brief short sentences at times and only responding yes/no at other times. Denies any pain. Reports she is thirsty.) Physical Examination - Vital Signs Temperature: 97.1 F Blood Pressure: 167/73 Pulse: 81 Respirations: 20 Pulse Ox (%): 98 - Physical Exam General: In no apparent distress, Oriented x1 (self only), Other (responsive for brief intervals) HEENT: Sclerae nonicteric Respiratory: Diminished (at bases bilaterally), Crackles/rales (at left base) Cardiovascular: Regular rate/rhythm Gastrointestinal: Soft and benign, Non-distended, No tenderness Musculoskeletal: No tenderness Integumentary: No rashes Assessment & Plan Physician Review Additional Text: Hyperkalemia Metabolic encephalopathy likely secondary to uremia ESRD (end stage renal disease) on dialysis Hypothyroidism Type 1 diabetes mellitus on insulin therapy Nephrology consulted for emergent hemodialysis - received shortly after admission and on the following morning Altered mental status likely secondary to uremic encephalopathy possibly due to pneumonia - patient is slowly improving every day Hemodialysis schedule per nephrology. Received IV Levaquin and vancomycin on admission. Continue levaquin q48 for left lobar pneumonia. Pro calcitonin down trending Keep NPO for now, can ADAT once more alert and able to protect her airway Hold insulin pump, manage blood sugar with insulin sliding scale. Follow blood cultures obtained in the ED. - no growth so far Time Spent Managing Pts Care (In Minutes): 35
--- NOTE | 2020-04-06 14:52 | PN ---
Date of Progress Note: 04/06/2020 Subjective: The patient is seen and examined during dialysis. She seems to be tolerating dialysis v osmani well. She seems very drowsy and lethargic, but she is not able to answer my questions, but noted Dr. Wallace's note. The patient seems to be responding slightly better today according to his note. Otherwise, she remains hemodynamically stable. No other issues were noted. Physical Examination: Vital Signs: Have been reviewed. General: She appears sedated and lethargic. HEENT: Atraumatic head. Lungs: Clear to auscultation anteriorly. Extremities: Showed no evidence of edema. Impression: 1.End-stage renal disease, on dialysis. 2.Altered mental status secondary to metabolic encephalopathy. 3.Hypertension. 4.Hypothyroidism. 5.Type 1 diabetes, on insulin. The patient is getting dialysis at this time. Continue all other me dications the same. The patient's workup for sepsis has been negative for now. Laboratory data has been reviewed and is stable. Continue to monitor her altered mental status and we will follow up shu reese. VV/MODL Voice ID: [id number] Report ID: [id number]
[2020-04-07] MEDS: HEPARIN 5000 UNIT/ML 1 ML VIAL SQ SCH ×2 (01:39→08:35)
[2020-04-07] MEDS: HYDRALAZINE HCL 20 MG/ML VIAL IV PRN (01:41)
[2020-04-07 05:55] LABS: Absolute Lymphocytes (CBC) 0.8 K/uL (0.7-4.9); Basophils % 0.2 % (0-1.3); Hematocrit 47.5 % (36.0-45.0); Lymphocytes % 7.7 % (15.3-44.8); MPV 9.2 fL (7.6-11.3); RBC Red Blood Cell Count 4.99 M/uL (3.86-4.86)
[2020-04-07 05:58] LABS: Magnesium 2.5 mg/dL (1.8-2.4); Potassium 4.1 mmol/L (3.5-5.1)
[2020-04-07] MEDS ORDERED: LEVOTHYROXINE SOD 0.075 MG TAB PO SCH (08:00)
[2020-04-07] MEDS: INSULIN -REGULAR HUMAN 50 UNIT/0.5 ML ML SQ SCH ×2 (08:30→11:39)
[2020-04-07] MEDS ORDERED: ASCORBIC ACID 500 MG TABLET PO SCH (09:00)
[2020-04-07] MEDS ORDERED: PYRIDOXINE (VIT B6) 50 MG TAB PO SCH (09:00)
[2020-04-07] MEDS ORDERED: LIOTHYRONINE SOD 5 MCG TAB PO SCH (09:00)
[2020-04-07] MEDS ORDERED: carvediloL 25 MG TAB PO SCH (09:00)
[2020-04-07] MEDS ORDERED: HOME MED 1 EA UNK (Ferric Citrate [Auryxia] 210 MG) PO SCH (09:00)
[2020-04-07] MEDS ORDERED: NIFEDIPINE XL 90 MG TABLET PO SCH (09:00)
[2020-04-07] MEDS ORDERED: HYDRALAZINE HCL 25 MG TABLET PO SCH (09:00)
[2020-04-07] MEDS ORDERED: VITAMIN D 5,000 UNIT CAP PO SCH (09:00)
[2020-04-07] MEDS ORDERED: PANTOPRAZOLE 40MG TABLET PO SCH (09:00)
[2020-04-07 09:23] VITALS: O2SAT 96
[2020-04-07] MEDS ORDERED: LOSARTAN POTASSIUM 50 MG TABLET PO SCH (11:30)
[2020-04-07 12:47] VITALS: BP 147/69; TEMP 97
--- NOTE | 2020-04-07 17:42 | P.DS ---
Admission Date: 04/04/20 Discharge Date: 04/07/20 Disposition: DC HOME/HOME HEALTH CARE Discharge Condition: FAIR Reason for Admission: Altered mental status Consultations: Nephrology- Dr. Doyle Procedures: CXR (04/04): No acute cardiopulmonary process seen. A chronic interstitial lung disease is present similar to comparison. CT head/C-spine/chest/abdomen/pelvis (04/04): Atrophy and chronic ischemic change with no acute intracranial finding. Prominent cervical spine degenerative change most notable at C4-5. Cervical findings all appear to be chronic. Bilateral lung base atelectasis with additional left lung base airspace opacification that could be infectious or aspiration pneumonia. No acute traumatic injury to the abdomen or pelvis. There are findings of the abdomen and pelvis detailed in the report that do not appear to be of acute clinical significance. No significant CT Abdomen and Pelvis finding. CXR (04/06): Mild airspace opacity in the left lower lobe with a small left pleural effusion, suspicious for pneumonia. Problem List Hyperkalemia Metabolic encephalopathy secondary to uremia Community Acquired Pneumonia ESRD (end stage renal disease) on dialysis Hypothyroidism Type 1 diabetes mellitus on insulin therapy Brief History of Present Illness: 65yo F, PMH: DM1, ESRD on HD who was brought to ED with altered mental status, minimally responsive after missing 2 dialysis appointments. In the ED, she was noted to be hypoglycemic at 64, hyperkalemic (7.3), BUN up to 90, creatinine: 11.1. Nephrology was consulted for emergent hemodialysis. Hospital Course: The patient was admitted and underwent multiple rounds of hemodialysis. Workup also revealed a left lower lobe pneumonia patient was treated with Levaquin. She had significant improvement during her hospitalization and was back to her baseline, so she was discharged home with home health and physical therapy. She is to complete a course of Levaquin for her pneumonia, and the importance of compliance with dialysis appointments was Re-iterated. Vital Signs/Physical Exam: Temp Pulse Resp BP Pulse Ox 97 F 76 18 147/69 H 93 04/07/20 12:00 04/07/20 12:00 04/07/20 12:00 04/07/20 12:00 04/07/20 12:00 General: Alert, In no apparent distress, Oriented x3 HEENT: Sclerae nonicteric Neck: Supple Respiratory: Crackles/rales (at left lung base) Cardiovascular: No edema, Regular rate/rhythm, Normal S1 S2 Gastrointestinal: Soft and benign, Non-distended, No tenderness Integumentary: No rashes Neurological: Normal speech, Normal affect Laboratory Data at Discharge: WBC 10.8 K/uL (4.3-10.9) 04/07/20 05:20 Hgb 15.3 g/dL (12.0-15.0) H 04/07/20 05:20 Hct 47.5 % (36.0-45.0) H 04/07/20 05:20 Plt Count 192 K/uL (152-406) 04/07/20 05:20 PT 12.5 SECONDS (9.5-12.5) 04/04/20 14:20 INR 1.06 04/04/20 14:20 Sodium 139 mmol/L (136-145) 04/07/20 05:20 Potassium 4.1 mmol/L (3.5-5.1) 04/07/20 05:20 BUN 26 mg/dL (7-18) H 04/07/20 05:20 Creatinine 3.93 mg/dL (0.55-1.3) H D 04/07/20 05:20 Glucose 142 mg/dL (74-106) H 04/07/20 05:20 Uric Acid 4.2 mg/dL (2.6-6.0) 04/06/20 04:26 Phosphorus 6.2 mg/dL (2.5-4.9) H 04/06/20 04:26 Magnesium 2.5 mg/dL (1.8-2.4) H 04/07/20 05:20 Total Bilirubin 0.7 mg/dL (0.2-1.0) 04/06/20 04:26 AST 67 U/L (15-37) H 04/06/20 04:26 ALT 16 U/L (12-78) 04/06/20 04:26 Alkaline Phosphatase 124 U/L (45-117) H 04/06/20 04:26 Lipase 325 U/L (73-393) 04/04/20 14:20 Home Medications: Ascorbic Acid [Vitamin C*] 1,000 mg PO BID 09/30/14 B Complex with Vitamin C [Super B Complex with C] 1 cap PO DAILY 09/30/14 Biotin [Nail-Ex] 5,000 mg PO DAILY 09/30/14 Cholecalciferol (Vitamin D3) [Vitamin D3] 5,000 unit PO DAILY 09/30/14 Hydralazine [Apresoline*] 100 mg PO BID 09/30/14 Isosorbide Mononitrate [Isosorbide Mononitrate ER] 120 mg PO BEDTIME 09/30/14 Levothyroxine [Synthroid*] 150 mcg PO [id number] 09/30/14 Losartan Potassium [Cozaar*] 50 mg PO DAILY 09/30/14 Nifedipine [Procardia Xl] 90 mg PO BID 09/30/14 Pravastatin Sodium [Pravachol] 20 mg PO BEDTIME 09/30/14 carvediloL [Coreg*] 25 mg PO BID 09/30/14 Esomeprazole Magnesium 40 mg PO BID 06/14/17 Liothyronine Sodium [Cytomel] 5 mcg PO BID 06/14/17 Doxazosin [Cardura*] 1 mg PO BEDTIME 06/26/18 Fish Oil/Dha/Epa [Fish Oil 1,200 mg Fish Oil] 1 each PO DAILY 06/26/18 Folic Acid/Vit B Complex and C [Dialyvite 800 Chewable Wafer] 800 mcg PO DAILY 06/26/18 Ferric Citrate [Auryxia] 210 mg PO TID 04/05/20 Pyridoxine HCl (Vitamin B6) [Vitamin B6] 100 mg PO DAILY 04/05/20 Levofloxacin [Levaquin] 250 mg PO DAILY 7 Days #7 tablet 04/07/20 New Medications: Levofloxacin [Levaquin] 250 mg PO DAILY 7 Days #7 tablet Patient Discharge Instructions: Follow up with PCP within 3-5 days. continue dialysis as scheduled. resume home medications. new medications: Levaquin (levofloxacin) 250mg tablet once a day for 7 days to treat pneumonia Diet: Renal Activity: Fall precautions Followup: Unknown,U [Primary Care Provider] - Time spent managing pt's care (in minutes): 35
--- NOTE | 2020-04-07 20:00 | P.PN ---
Date of Service: 04/07/20 Vital Signs Temp Pulse Resp BP Pulse Ox 97 F 76 18 147/69 H 93 04/07/20 12:00 04/07/20 12:00 04/07/20 12:00 04/07/20 12:00 04/07/20 12:00 Microbiology Results 04/04/20 15:25 Blood - Blood Aerobic Blood Culture - Preliminary No growth in 24 hours. 04/04/20 15:25 Blood - Blood Anaerobic Blood Culture - Preliminary No growth in 24 hours. 04/04/20 15:10 Blood - Blood Aerobic Blood Culture - Preliminary No growth in 24 hours. 04/04/20 15:10 Blood - Blood Anaerobic Blood Culture - Preliminary No growth in 24 hours. 04/04/20 15:20 Nasopharnyx Influenza Type A Antigen Screen - Final 04/04/20 15:20 Nasopharnyx Influenza Type B Antigen Screen - Final Assessment/ Plan: Nephrology CPS stable without CP or SOB. No acute events overnight. AMS resolved and feeling better. Wants to go home. Vitals, medications, blood work and imaging reviewed in the chart. General: In no apparent distress, Cooperative HEENT: Atraumatic Neck: Supple Respiratory: Clear to auscultation bilaterally Cardiovascular: No edema, Regular rate/rhythm Gastrointestinal: Soft and benign, Non-distended Musculoskeletal: No clubbing, Contractures Integumentary: No rashes, No cyanosis Neurological: Abnormal speech Blood work reviewed in the chart. Imagings Data: EXAM DESCRIPTION: RAD - Chest Single View - 04/04/2020 2:48 pm CLINICAL HISTORY: COUGH COMPARISON: June 2017 TECHNIQUE: AP portable chest image was obtained 04/04/2020 2:48 pm . FINDINGS: Chronic interstitial lung disease is present similar to comparison. Right lung field is clear of a focal mass or consolidation. Left lung field is mostly obscured by the dense overlying breast implant. Acute finding is doubtful. Heart and vasculature are normal. No measurable pleural effusion and no pneumothorax. No acute bony abnormality seen. No acute aortic findings suspected. IMPRESSION: Exam is limited as detailed but no acute cardiopulmonary process seen. Conclusions/Impression: A/ ESRD on HD Hyponatremia Hyperkalemia Acidosis HTN with CKD / CHF Diastolic CHF, chronic DM I with CKD Moderate malnutrition Anemia in CKD Toxic metabolic encephalopathy Lobar PNA? P/ Continue current POC and Medications. Continue abx. Follow up cultures. Encourage nutrition. No NSAIDs. AM labs. Daily weight. Case reviewed with Dr. Wallace.
[2020-04-07] MEDS ORDERED: ATORVASTATIN 10 MG TAB PO SCH (21:00)
[2020-04-07] MEDS ORDERED: PROMOD 30 ML DOSE PO SCH (21:00)
[2020-04-07] MEDS ORDERED: ISOSORBIDE MONO SR 60 MG TAB PO SCH (21:00)
[2020-04-07] MEDS ORDERED: DOXAZOSIN 1 MG TAB PO SCH (21:00)
[2020-04-07] MEDS ORDERED: DOXAZOSIN 2 MG TAB PO SCH (21:00)
== END 2020-04-07 14:25 | disposition home health service (06) | DRG 291 ==
LOC: ER 13:42 → ERHOLD 15:47 → 2ND 04-06 11:04
PROVIDERS: ADMIT Internal Medicine; ATTEND Hospitalist
PROC: 5A1D70Z Performance of Urinary Filtration, Intermittent, Less than 6 Hours Per Day (ICD-10-PCS; principal; 2020-04-06)
DX: I13.2 Hypertensive heart and chronic kidney disease with heart failure and with stage 5 chronic kidney disease, or end stage renal disease (principal); J18.9 Pneumonia, unspecified organism; G92 Toxic encephalopathy; N18.6 End stage renal disease; Z94.0 Kidney transplant status; E87.1 Hypo-osmolality and hyponatremia; I50.32 Chronic diastolic (congestive) heart failure; E44.0 Moderate protein-calorie malnutrition; Z68.1 Body mass index [BMI] 19.9 or less, adult; E10.649 Type 1 diabetes mellitus with hypoglycemia without coma; E87.5 Hyperkalemia; E03.9 Hypothyroidism, unspecified; D63.1 Anemia in chronic kidney disease; E10.22 Type 1 diabetes mellitus with diabetic chronic kidney disease; Z99.2 Dependence on renal dialysis; Z91.15 Patient's noncompliance with renal dialysis; Z96.41 Presence of insulin pump (external) (internal); Z88.0 Allergy status to penicillin; Z79.890 Hormone replacement therapy; Z79.899 Other long term (current) drug therapy; Z79.4 Long term (current) use of insulin; Z79.01 Long term (current) use of anticoagulants; Z20.828 Contact with and (suspected) exposure to other viral communicable diseases
CPT/HCPCS: 36415; 70450; 71045; 71250; 72125; 80048; 80053; 80076; 82140; 82533; 82947; 83036; 83605; 83690; 83735; 83880; 84100; 84132; 84145; 84439; 84443; 84484; 84550; 85025; 85610; 85652; 86140; 87040; 87804; 90935; 93005; 99285; J0360; J0610; J1644; J2185; J2354; J2930; J3370; J7030; U0003

== ENCOUNTER 2020-07-01 10:38 | Inpatient (IN) | payer OTHER ==
--- OUTSIDE RECORDS SUMMARY | 2020-07-01 10:41 | XMS REPORT | Clinical Summary ---
:1955 Author Organization [facility] Address [address] [place] [address] Care Team Providers Name Role Phone Pcp, Primary Care Provider Unavailable Allergies Active Allergy Reactions Severity Noted Date Comments Penicillins Hives, Rash Low 01/07/2017 Medications Medication Sig Dispensed Refills Start End Date Status Date ascorbic acid, Take 1,000 mg by 0 Active vitamin C, mouth daily. (VITAMIN C) 1000 MG tablet atropine (ISOPTO) 1 drop 3 (three) 0 Active 1 % ophthalmic times daily. solution b complex Take 1 tablet by 0 Act cristian vitamins tablet mouth daily. biotin 1 mg Cap Take by mouth. 0 Active carvedilol Take 25 mg by 0 Activ e (COREG) 25 MG mouth 2 (two) tablet times daily with breakfast and dinner. cholecalciferol, Take 5,000 Units 0 Active vitamin D3, 5,000 by mouth daily. unit Tab esomeprazole Take 40 mg by 0 Act cristian (NEXIUM) 40 MG mouth daily. capsule hydrALAZINE Take 100 mg by 0 Act cristian (APRESOLINE) 100 mouth 2 (two) MG tablet times daily. isosorbide Take 60 mg by 0 Activ e mononitrate mouth daily. (IMDUR) 60 MG 24 hr tablet levothyroxine Take 75 mcg by 0 A ctive (SYNTHROID, mouth Every LEVOTHROID) 75 morning on an MCG tablet empty stomach. liothyronine Take 5 mcg by 0 Act cristian (CYTOMEL) 5 MCG mouth daily. tablet losartan (COZAAR) Take 50 mg by 0 Active 50 MG tablet mouth daily. loteprednol 1 drop 4 (four) 0 Ac tive (LOTEMAX) 0.5 % times daily. ophthalmic suspension moxifloxacin 1 drop 3 (three) 0 Active (VIGAMOX) 0.5 % times daily. ophthalmic solution NIFEdipine Take 90 mg by 0 Activ e (ADALAT CC) 90 MG mouth daily. 24 hr tablet insulin aspart Inject 0 Activ e U-100 (NOVOLOG) subcutaneously 3 100 unit/mL InPn (three) times daily with meals. omega Take by mouth. 0 Activ e 5-bag-jlz-fish oil (FISH OIL) 100-160-1,000 mg Cap pravastatin Take 20 mg by 0 Acti ve (PRAVACHOL) 20 MG mouth daily. tablet prednisoLONE 1 drop 4 (four) 0 A ctive acetate (PRED times daily. FORTE) 1 % ophthalmic suspension timolol 1 drop 2 (two) 0 Activ e (TIMOPTIC) 0.5 % times daily. ophthalmic solution tobramycin 3 (three) times 0 Act cristian (TOBREX) 0.3 % daily. ophthalmic ointment traMADol (ULTRAM) Take 50 mg by 0 Active 50 mg tablet mouth every 6 (six) hours as needed for Pain. pyridoxine, Take 25 mg by 0 Acti ve vitamin B6, (B-6) mouth daily. 25 MG tablet folic acid/vit B Take by mouth. 0 Active complex and C (ANNE MARIE-RAGHU ORAL) doxazosin Take 1 mg by mouth 0 A ctive (CARDURA) 1 MG nightly. tablet clonidine HCl Take by mouth. 0 05/09/20 D iscontinued (CATAPRES ORAL) 20 (Err or) pantoprazole Take 40 mg by 0 05/09/20 Dis continued (PROTONIX) 40 MG mouth daily. 20 (Error) tablet hydrOXYzine Take 10 mg by 0 05/09/20 Disc ontinued (ATARAX) 10 MG mouth 3 (three) 20 (Error) tablet times daily as needed for Itching. apixaban Take 2.5 mg by 0 05/06/20 Disco ntinued (ELIQUIS) 2.5 mg mouth 2 (two) 20 (Error) Tab tablet times daily. ferrous sulfate Take 325 mg by 0 05/09/20 Discontinued 325 (65 FE) MG mouth daily with 20 (Error) tablet breakfast. multivitamin Take 1 capsule by 0 05/09/20 Discontinued capsule mouth daily. 20 (Error) Missing or 40 mg/day. 0 05/09/20 Disconti nued Non-Formulary 20 (Error ) MedicationIndicat ions: Esomeparzole moxifloxacin Place 1 drop into 3 mL 0 05/20/20 (VIGAMOX) 0.5 % the right eye 3 0 20 ophthalmic (three) times solution daily for 10 days. 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 Pulse 75 05/10/2020 12:40 PM [employer]ING [employer] Temperature 35.7 C (96.3 F) 05/10/2020 12:11 PM [employer]ING [employer]ARD Respiratory Rate 18 05/10/2020 12:40 PM [employer]ING [employer]EWARD Oxygen Saturation 95% 05/10/2020 12:40 PM [employer]ING [employer]EWARD Inhaled Oxygen Concentration - - Weight 54 kg (119 lb) 05/06/2020 4:32 PM D[employer]ING [employer] STEWARD Height 167.6 cm (5' 6") 05/06/2020 4:32 PM [employer]ING [employer] Body Mass Index 19.21 05/06/2020 4:32 PM 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 STEWARD Plan of Treatment Health Maintenance Due Date Last Done Comments BREAST CANCER SCREENING 1955 COLON CANCER SCREENING COLONOSCOPY 1955 MEDICARE ANNUAL WELLNESS (YEAR 2 or FIRST YEAR if no 12/09/2005 IPPE) PNEUMOCOCCAL 65+ YRS (1 of 1 - [id number]) 2019 INFLUENZA VACCINE (#1) 2020 Implants Implanted Type Area Leather Stripping Machine Operator Device Shelf Model / Identifier Expiration Serial / Date Lot Tissue Memb Amniogrft 2.5x2.0 Ag-2520f - [id number] IMPLAN TS Right: BIO-TISSUE 01/01/2020 [id number] / Implanted: Qty: 1 on 07/09/2018 by Craig Jones MD at [facility] Eye [id number] / N/A Grft Amnio Membrane 1.5x1.0cm Ag-1510f - [id number] IMPLAN TS Right: BIO-TISSUE 01/19/2022 [id number] / Implanted: Qty: 1 on 05/10/2020 by Christal Garza MD at [facility] Eye [id number] / Cornea Tissue Ophthalmology Right: Unknown 05/19/2020 V [id number] / Implanted: Qty: 1 on 05/10/2020 by Christal Garza MD at [facility] Eye [id number] / Description:PKP, RIGHT EYE Procedures Procedure Name Priority Date/Time Associated Diagnosis Comme nts RECONSTRUCTION,OCULA 05/10/2020 10:10 Unspecified corn eal R AMNIOTIC MEMBRANE AM [employer]ING [employer] STEWARD scar and opa city TRANSPLANT Band keratopathy, right eye CONSTRUCTION,INTERMA 05/10/2020 10:10 Unspecified corn eal RGINAL ADHESIONS AM [employer]ING [employer] STEWARD scar and opacit y Band keratopathy, right eye TRANSPLANT,CORNEAL 05/10/2020 10:10 Unspecified cornea l AM [employer]ING [employer] scar and opacity Band keratopathy, right eye BASIC METABOLIC Routine 05/10/2020 8:00 Results for this PANEL (7) AM [employer]ING [employer]EWARD procedure are i n the results section. after 07/01/2019 Results Basic Metabolic Panel (05/10/2020 8:00 AM DINING CAR STEWARD) Sodium 137 136 - 145 meq/L [facility] Potassium 4.7 3.5 - 5.1 meq/L [facility] Chloride 101 98 - 107 meq/L [facility] CO2 32 (H) 22 - 29 meq/L [facility] BUN 23 (H) 7 - 21 mg/dL [facility] Creatinine 3.88 (H) 0.57 - 1.[address] [facility] mg/dL - [place] Glucose 119 (H) 70 - 105 mg/dL [facility] Calcium 9.1 8.4 - 10.[address] [facility] mg/dL - [place] EGFR 12Comment: ESTIMATED mL/min/1.73 sq [facility] H GFR IS NOT m - [place] ACCURATE CREATININE CLEARANCE IN PREDICTING GLOMERULAR FILTRATION RATE. ESTIMATED GFR IS NOT APPLICABLE FOR DIALYSIS PATIENTS. Specimen Blood Performing Organization Address City/State/Zipcode Phone Number [facility] [address] [place] [address] after 07/01/2019 Insurance Payer Benefit Plan / Subscriber ID Effective Dates Phone Addre ss Type Group MEDICARE MEDICARE A B [id number] 2004-Present Medicare OTHER-[employer] GENERIC [id number] 2018-Present L COMMERCIAL
--- OUTSIDE RECORDS SUMMARY | 2020-07-01 10:41 | XMS REPORT | Clinical Summary ---
:1955 Author Organization [facility] Address [address] [place] [address] Care Team Providers Name Role Phone Melchor [...] Insulin Pump Active Problems Problem Noted Date S/P femoral-popliteal bypass surgery 06/29/2020 Last Assessment & Plan: US duplex reviewed by me. Patient is doing well and does not show any complications related to her bypass surgery. Patient will return to clinic as needed or if complications arise. PFO with atrial septal aneurysm 01/07/2017 HTN (hypertension), malignant 01/07/2017 End stage renal disease 01/07/2017 Diabetes mellitus 01/07/2017 Encounters Date Type Specialty Care Team Description 06/29/2020 Office Visit Cardiovascular Fred Mathew MD 06/29/2020 Travel 05/24/2020 Telephone Cardiovascular Carissa Hurtado RN PAD (perip heral artery disease) (HCC) (Primary Dx) 05/10/2020 Lab Lab Christal Hernandez MD 05/10/2020 Travel after 07/01/2019 Surgical History Surgery Date Site/Laterality Comments MASTECTOMY Double BREAST IMPLANT REMOVAL HYSTERECTOMY BYPASS GRAFT Left leg TOE AMPUTATION Left big toe BYPASS GRAFT Right leg TOE AMPUTATION Right big toe INSERTION, IMPLANT OR TISSUE PATTERN GRADER, BREAST, FOR RECONSTRUCTION CATARACT EXTRACTION TRANSPLANTATION, KIDNEY [...] Used Alcohol Use Drinks/Week oz/Week Comments No Sex Assigned at Date Recorded Not on file Job Start Date Occupation Industry Not on file Not on file Not on file COVID-19 Exposure Response Date Recorded In the last month, have you been in contact with No / Unsure 06/29/2020 12:11 PM 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 Last Filed Vital Signs Vital Sign Reading Time Taken Comments Blood Pressure 154/63 06/29/2020 12:55 PM WE[employer] LOSS CENTRE MANAGER Pulse 74 06/29/2020 12:55 PM WE[employer] LOSS C[employer]RE MANAGER Temperature - - Respiratory Rate - - Oxygen Saturation 98% 06/29/2020 12:55 PM WE[employer] C[employer]RE MANAGER Inhaled Oxygen Concentration - - Weight 51.8 kg (114 lb 3.2 oz) 06/29/2020 12:55 PM WE[employer] CENTRE MANAGER Height 165.1 cm (5' 5") 06/29/2020 12:55 PM WE[employer] LOSS C[employer]RE MANAGER Body Mass Index 19 06/29/2020 12:55 PM WE[employer] LOSS CENTRE MANAGER Plan of Treatment Health Maintenance Due Date Last Done Comments DIABETES: RETINAL EYE EXAM 02/15/1964 DIABETIC FOOT EXAM 02/15/1964 COVID-19 VACCINE (1 of 2) 1970 BREAST CANCER SCREENING 02/15/2004 COLONOSCOPY SCREENING 02/15/2004 SHINGLES VACCINES (#1) 02/15/2004 65+ PNEUMOCOCCAL VACCINE (1 of 1 - PPSV23) 2019 INFLUENZA VACCINE 01/09/2020 Procedures Procedure Name Priority Date/Time Associated Diagnosis Comme nts FUNGUS CULTURE Routine 05/10/2020 9:41 PM Result s for this [employer] MANAGER procedure are i n the results section. ANAEROBIC CULTURE Routine 05/10/2020 9:41 PM Res ults for this [employer] MANAGER procedure are i n the results section. AEROBIC CULTURE Routine 05/10/2020 9:41 PM Resul ts for this WE[employer] MANAGER procedure are i n the results section. SURGICAL PATHOLOGY Routine 05/10/2020 9:30 AM Re sults for this REQUEST WE[employer]RE MANAGER procedure are i n the results section. after 07/01/2019 Results Aerobic culture (05/10/2020 9:41 PM WE[employer] LOSS CENTRE MANAGER) Aerobic culture No growth after 3 days. PEREZ METHOD IST isolate Comment: HOSPITAL Specimen Information Specimen Source: Eye Specimen Site: Corneal rim Specimen Eye - Corneal rim Performing Organization Address City/State/ZIP Code Phon e Number [facility] DEPARTMENT OF PATHOLOGY AND [address] [place] [address] [phone] [address] Fungus culture (05/10/2020 9:41 PM WEIGHT LOSS CENTRE MANAGER) Fungus culture No growth after 4 weeks of incubation. CHRIS BLACK isolate Comment: HOSPITAL Specimen Information Specimen Source: Eye Specimen Site: Corneal rim Specimen Eye - Corneal rim Performing Organization Address [facility] Phon e Number [facility] DEPARTMENT OF PATHOLOGY AND [address] [place] [address] [phone] [address] Anaerobic culture (05/10/2020 9:41 PM WE[employer] LOSS CENTRE MANAGER) Anaerobic culture No anaerobic organisms isolated. NEIL BLACK isolate Comment: HOSPITAL Specimen Information Specimen Source: Eye Specimen Site: Corneal rim Specimen Eye - Corneal rim Performing Organization Address [facility] Phon e Number [facility] DEPARTMENT OF PATHOLOGY AND [address] [place] [address] [phone] [address] Surgical pathology request (05/10/2020 9:30 AM WE[employer] LOSS CENTRE MANAGER) [facility] DEPARTMENT OF PATHOLOGY AND GENOMIC MEDICINE Surgical pathology See link below [facility] DEPARTMENT OF report for PDF Lab PATHOLOGY AND Report GENOMIC MEDICINE Result status This is Final [facility] DEPARTMENT OF Report for PATHOLOGY AND [id number] GENOMIC MEDICINE Specimen Performing Organization Address [facility] Phon e Number [facility] DEPARTMENT OF PATHOLOGY AND [address] [place], [place] [phone] GENOMIC MEDICINE after 07/01/2019 Insurance Payer Benefit Plan / Subscriber ID Effective Dates Phone Addre ss Type Group MEDICARE MEDICARE PART A [id number] 2004-Present [facility] [place] Medicare AND B GEHA GEHA MED [id number] 2016-Present CustExial SUPPLEMENT
--- OUTSIDE RECORDS SUMMARY | 2020-07-01 10:42 | XMS REPORT | Continuity of Care Document ---
:1955 Author Organization [facility] Information [place] Care Team Providers Name Role Phone [facility] Information Exchange Unavailable Un available Problems Problem Status Onset Classification Date Comments Sourc e Date Reported BREAST IMPLANT Active 11/11/19 [facility] morial HEMATOMA 17 [place] POSTTRAMATIC Active 11/11/19 Johnnie rial HEMATOMA OF 17 [place] LEFT BREST [id number], Active 09/14/19 [place] [id number] [place] [address] HISTORYOF BREAST AUGME End Stage Renal Active 11/18/2012 [facility] Diabetes Active 11/18/2012 [facility] Complication Chronic Kidney Active 11/18/2012 [facility] Malignant Hypertension Absence of Resolved Problem 11/14/2016 Memor ial breast [facility] (finding) Diabetes [facility] (disorder) Disease of Active Problem 11/14/2016 Memor ial thyroid gland [facility] (disorder) End stage renal Active Problem 11/14/2016 [facility] disease on [facility] dialysis due to type 1 diabetes mellitus (disorder) Hypertensive Active Problem 11/14/2016 [facility] o[facility] disorder, [place] systemic arterial (disorder) Malignant tumor Resolved Problem 11/14/2016 [facility] of breast [place] (disorder) ILLNESS, Active Memoria l UNSPECIFIED [facility] CONTUSION OF Active Johnnie rial LEFT BREAST, [facility] INITIAL ENCOUN Medications Medication Details Route Status Patient Ordering Order Source Instructions Provider Date bifidobacterium- 1 tab, CHEW, Active 11/11/ [facility] lactobacillus Daily, # 30 2016 [facility] oral tablet, tab, 0 chewable Refill(s) clindamycin 150 150 mg = 1 cap, Active 11/11/ [facility] mg oral capsule PO, Q6H, X 14 2017 Ci ty day, # 56 cap, 0 Refill(s) Pravastatin Notes: (Same No Longer 11/11/ [facility] morial as: Pravachol) Active 2016 [facility] Isosorbide Notes: (Same No Longer 11/11/ [facility] orial as:Imdur) Do Active 2016 not crush [...] No Longer Memor ial as:MORPhine Active 2016 [facility] Sulfate) Acetaminophen Notes: Same as No Longer [facility] 325 MG / [place] 325-7.5mg Active 2016 Hydrocodone Do not exceed Bitartrate 7.5 4gm/day of MG Oral Tablet acetaminophen. ondansetron Route: IV, Drug Inactive [facility] (ANES) form: , 2016 [facility] , Stop date: 11/10/16 12:56:00 CDT acetaminophen Route: IV, Drug Inactive [facility] (ANES) form: INJ, 2016, Stop date: 11/10/16 12:26:00 CDT famotidine Route: IV, Drug Inactive [facility] ([facility]) form: 2016 [facility] , Stop date: 11/10/16 12:26:00 CDT Cleocin Route: IV, Drug Inactive Johnnie rial Phosphate (ANES) form: 2016 + sodium ONCE, Stop chloride 0.9% date: 11/10/16 100 ml INJ 12:21:00 CDT (ANES) ePHEDrine (ANES) Route: IV, Drug Inactive [facility] form: , 2016, Stop date: 11/10/16 12:21:00 CDT fentaNYL (ANES) Route: IV, Drug Inactive [facility] form: , 2016 [facility] , Stop date: 11/10/16 12:21:00 CDT propofol (ANES) Route: IV, Drug Inactive [facility] form: 2016, Stop date: 11/10/16 12:21:00 CDT midazolam (ANES) Route: IV, Drug Inactive [facility] form: SOLN, 2017 [place] ONCE, Stop date: 11/10/16 12:21:00 CDT succinylcholine Route: IV, Drug Inactive [facility] (ANES) form: INJ, 2016 [facility] ONCE, Stop date: 11/10/16 12:11:00 CDT Diphenhydramine Notes: (Same Inactive [facility] as: Benadryl) 2016 [facility] Naloxone Notes: Same as [facility]an 2016 [facility] Flumazenil Notes: (Same [facility] as: Romazicon) 2016 [facility] Morphine Notes: (Same [facility] as:MORPhine 2016 [facility] Sulfate) Hydromorphone Notes: Same as Inactive 11/10[facility] Dilaudid 2016 [facility] Meperidine Notes: (Same [facility] as: Demerol) 2016 [facility] "Use Precaution in Elderly, Seizure disorders, and Renal impairment&quot ; Ondansetron Notes: (Same Inactive [facility] orial as: Zofran) 2016 [facility] MEDICATION WASTE Product Size: 4 mg Product Wasted: ___ mg Promethazine Notes: Do not Inactive [facility] emorial give IV push. 2016 [facility] (Same as: Phenergan) sodium chloride Route: IV, Inactive [facility] emorial 0.9% 1000 ml INJ Total Volume: 2016 C ity (ANES) 1,000, Start date: 11/10/16 11:17:00 CDT, Stop date: 11/10/16 12:17:00 CDT Docusate Notes: (Same No Longer [facility] as: Colace) (Do Active 2016 [facility] Not Crush) Hydralazine Notes: (Same No Longer Me morial Hydrochloride as: Apresoline) Active 2016 Ci ty 100 MG Oral May interfere Tablet w/enteral feedings Take With Food Esomeprazole 40 mg, Route: Inactive [facility]orial PO, Drug form: 2016 [facility] ECCAP, Daily, Dosing Weight 58.818, kg, Start date: 11/10/16 9:00:00 CDT, Duration: 30 day, Stop date: 12/09/16 9:00:00 CDT Coreg Notes: Give No Longer Memoria l with food. Active 2016 [facility] (Same As: Coreg) Renvela Notes: Same as: No Longer Mem orial Renvela Active 2016 [facility] Synthroid Notes: Take 1 No Longer Mem orial hour before or 2016 [facility] 2 hours after meal; Enteral feeds may interefere with the absorption of this medication. (Same as:Synthroid, Levothroid) Romanmel Notes: (Same No Longer Memori al as: Cytomel) 2016 [facility] Glucagon 1 mg, Route: [facility] form: [facility] 2016 [facility] PDR/INJ, PRN, Dosing Weight 58.818, kg, PRN Blood Glucose Results, Start date: 11/10/16 3:25:00 CDT, Duration: 30 day, Stop date: 12/10/16 3:24:00 CDT Dextrose 50% 25 gm, 50 mL, No Longer [facility] Syringe Route: IVP, 2016 [facility] Drug Form: INJ, Dosing Weight 58.818, kg, PRN, PRN Blood Glucose Results, Start date: 11/10/16 3:25:00 CDT, Duration: 30 day, Stop date: 12/10/16 3:24:00 CDT Insulin, Aspart, Notes: Roll in No Longer [facility] Human palms of hands [facility] 2016 [facility] gently; Do not shake vigorously. (Same as: NovoLOG) "single patient use only" WASTE: F/P - Black; E - Municipal Trash Bin Stable for 28 days at room temperature. Expires in days from D ate Sodium Chloride 25 mL, Route: No Longer [facility] 0.9% IV IV, Start date: [facility] 2016 [facility] 11/10/16 3:07:00 CDT, Duration: 30 day, Stop date: 12/10/16 3:06:00 CDT, PRN Line Flush BD Normal Saline Notes: (Same No Longer [facility] Flush as: BD Active 2016 [facility] Posiflush) Acetaminophen Notes: (Same Inactive [facility] emorial 325 MG / as: [place] 2016 [facility] Hydrocodone 325/5) Do not Bitartrate 5 MG exceed 4gm/day Oral Tablet of acetaminophen. Morphine Notes: (Same No Longer Memor ial as:MORPhine Active 2016 [facility] Sulfate) Acetaminophen Notes: Do not No Longer [facility] exceed 4 Active 2016 [facility] gm/day. (Same as: Tylenol) Ondansetron Notes: (Same No Longer Me morial as: Zofran) Active 2016 [facility] MEDICATION WASTE Product Size: 4 mg Product Wasted: ___ mg ondansetron Route: IV, Drug Inactive [facility] (ANES) form: 2016 [facility] , Stop date: 10/09/16 16:09:00 CDT fentaNYL (ANES) Route: IV, Drug Inactive [facility] form: 2016 [facility] , Stop date: 10/09/16 16:09:00 CDT EPINEPHrine Route: IV, Drug Inactive [facility] (ANES) form: 2016 [facility] , Stop date: 10/09/16 14:53:00 CDT midazolam (ANES) Route: IV, Drug Inactive [facility] form: SOLN, 2016, Stop date: 10/09/16 14:43:00 CDT lidocaine (ANES) Route: IV, Drug Inactive [facility] form: 2016 [facility] , Stop date: 10/09/16 14:43:00 CDT Cleocin Route: IV, Drug Inactive Johnnie rial Phosphate (ANES) form: 2016 [facility] , Stop date: 10/09/16 14:32:00 CDT dexamethasone Route: IV, Drug Inactive 10/09/ [facility] ([facility]ES) form: 2016 [facility] , Stop date: 10/09/16 14:27:00 CDT propofol (ANES) Route: IV, Drug Inactive 10/09/ [facility] form: 2016 [facility] , Stop date: 10/09/16 14:27:00 CDT ePHEDrine (ANES) Route: IV, Drug Inactive 10/09/ [facility] form: 2016 [facility] , Stop date: 10/09/16 14:27:00 CDT fentaNYL (ANES) Route: IV, Drug Inactive [facility] form: INJ, 2016 [facility] ONCE, Stop date: 10/09/16 14:27:00 CDT sodium chloride Route: IV, Inactive [facility] emorial 0.9% 1000 ml INJ Total Volume: 2016 C ity (ANES) 1,000, Start date: 10/09/16 13:22:00 CDT, Stop date: 10/09/16 14:22:00 CDT Exparel Notes: (Same [facility] as[facility] Exparel) [address] [place] [address] NOT FOR IV use Postoperative analgesia: Infiltration [...] [266 mg]) Midazolam 1 mg, Route: [facility]active [facility] IVP, Q5Min, 2016 [facility] Dosing Weight 55.483, kg, PRN Anxiety, Start date: 10/09/16 12:41:00 CDT, Duration: 2 doses or times, Stop date: Limited # of times Promethazine 6.25 mg, Route: Inactive [facility] IVPB, ONCE, 2016 [facility] Dosing Weight 55.483, kg, PRN Nausea & Vomiting, Start date: 10/09/16 12:41:00 CDT Dexamethasone 4 mg, Route: Inactive [facility] emorial IVP, ONCE, 2016 [facility] Dosing Weight 55.483, kg, PRN Nausea & Vomiting, Start date: 10/09/16 12:41:00 CDT Lorazepam 0.5 mg, Route: Inactive [facility] orial IVP, Q20Min, 2016 [facility] Dosing Weight 55.483, kg, PRN Anxiety, Start date: 10/09/16 12:41:00 CDT, Duration: 3 doses or times, Stop date: Limited # of times 72 HR Notes: Change Inactive [facility] Scopolamine patch every 72 2016 [facility] 0.0139 MG/HR hours (Same Transdermal as: Patch Transderm-Scop) Ondansetron 4 mg, Route: Inactive [facility] orial IVP, ONCE, 2016 [facility] Dosing Weight 55.483, kg, PRN Nausea & Vomiting, Start date: 10/09/16 12:41:00 CDT Meperidine 12.5 mg, Route: Inactive [facility] emorial IVP, Q30Min, 2016 [facility] Dosing Weight 55.483, kg, PRN Other -See Comment, For shivering, Start date: 10/09/16 12:41:00 CDT, Duration: 2 doses or times, Stop date: Limited # of times Albuterol 0.83 2.49 mg, Route: Inactive [facility] MG/ML Inhalant NEB, PRN, 2016 [facility] Solution Dosing Weight 55.483, kg, PRN Respiratory Protocol, Start date: 10/09/16 12:41:00 CDT, Duration: 30 day, Stop date: 11/08/16 12:40:00 CDT 200 ACTUAT Notes: Inactive [facility] Albuterol 0.09 Albuterol 90 2016 [facility] MG/ACTUAT microgram/inh Metered Dose 8gm HFA WASTE: Inhaler Aerosol - Return to Pharmacy Same as: Fozia Mosley Morphine 2 mg, Route: Inactive Caterina al IVP, Q5Min, 2016 [facility] Dosing Weight 55.483, kg, PRN Pain Score 4-6, Start date: 10/09/16 12:41:00 CDT, Duration: 5 doses or times, Stop date: Limited # of times Diphenhydramine 12.5 mg, Route: Inactive 10/09[facility] IVP, Drug form: 2016 [facility] INJ, Q6H, Dosing Weight 55.483, kg, PRN Itching, Start date: 10/09/16 12:41:00 CDT, Duration: 30 day, Stop date: 11/08/16 12:40:00 CDT Racepinephrine 0.5 mL, Route: Inactive 10/09[facility] NEB, Dosing 2017 [facility] Weight 55.483, kg, PRN, PRN Shortness of breath, Start date: 10/09/16 12:41:00 CDT, Duration: 30 day, Stop date: 11/08/16 12:40:00 CDT Flumazenil 0.2 mg, Route: Inactive 10/09[facility] Me morial IVP, PRN, 2016 [facility] Dosing Weight 55.483, kg, PRN Benzodiazepine Reversal, Initial dose, Start date: 10/09/16 12:41:00 CDT, Duration: 30 day, Stop date: 11/08/16 12:40:00 CDT Ephedrine 5 mg, Route: Inactive Memor ial IVP, Q5Min, 2016 [facility] Dosing Weight 55.483, kg, PRN Low Blood Pressure, Start date: 10/09/16 12:41:00 CDT, Duration: 30 day, Stop date: 11/08/16 12:40:00 CDT Naloxone 0.4 mg, Route: Inactive 10/09[facility] Johnnie rial IVP, Q2MIN, 2016 [facility] Dosing Weight 55.483, kg, PRN Narcotic Reversal, Start date: 10/09/16 12:41:00 CDT, Duration: 8 doses or times, Stop date: Limited # of times Ketorolac 4 days Inactive 10/09[facility] Johnnie rial MEDICATION 2016 [facility] WASTE Product Size: 30 mg Product Wasted: 15 mg Acetaminophen 1,000 mg, Inactive 10/09[facility] Johnnie rial Route: PO, Drug 2016 [facility] form: TAB, ONCE, Dosing Weight 55.483, kg, PRN Pain Score 1-3, Start date: 10/09/16 12:41:00 CDT, Duration: 1 doses or times, Stop date: Limited # of times esmolol 10 mg, Route: Inactive Memori al IVP, Q5Min, 2016 [facility] Dosing Weight 55.483, kg, PRN Other -See Comment, Start date: 10/09/16 12:41:00 CDT, Duration: 5 doses or times, Stop date: Limited # of times ANES Enalaprilat 0.625 mg, Inactive [facility] Route: IVP, 2016 [facility] Q5Min, Dosing Weight 55.483, kg, PRN Elevated BP, Start date: 10/09/16 12:41:00 CDT, Duration: 4 doses or times, Stop date: Limited # of times Labetalol 10 mg, Route: Inactive Johnnie rial IVP, Q5Min, 2016 [facility] Dosing Weight 55.483, kg, PRN Elevated BP, Start date: 10/09/16 12:41:00 CDT, Duration: 5 doses or times, Stop date: Limited # of times Metoprolol 1 mg, Route: Inactive Johnnie rial IVP, Q5Min, 2016 [facility] Dosing Weight 55.483, kg, PRN Other -See Comment, Start date: 10/09/16 12:41:00 CDT, Duration: 5 doses or times, Stop date: Limited # of times Hydralazine 10 mg, Route: Inactive [facility] morial IVP, Q20Min, 2016 [facility] Dosing Weight 55.483, kg, PRN Elevated BP, Start date: 10/09/16 12:41:00 CDT, Duration: 2 doses or times, Stop date: Limited # of times Hydromorphone 0.5 mg, Route: Inactive [facility] IVP, Q5Min, 2016 [facility] Dosing Weight 55.483, kg, PRN Pain Score 7-10, Start date: 10/09/16 12:41:00 CDT, Duration: 4 doses or times, Stop date: Limited # of times Clindamycin Notes: (Same Inactive [facility] orial As: Cleocin) 2016 [facility] Sodium Chloride 500 mL, Route: Inactive [facility] 0.154 MEQ/ML IV, ONCE, 2016 [facility] Injectable Dosing Weight Solution 55.483 kg, Start date: 10/09/16 12:21:00 CDT, Stop date: 10/09/16 12:21:00 CDT, Bolus NovoLog See Active [facility] Instructions, 0 2016 [facility] Refill(s) sevelamer 800 mg = 1 tab, Active [facility] orial carbonate 800 MG PO, TID-Meals, 2017 [facility] Oral Tablet # 90 tab, 0 [Renvela] Refill(s) Esomeprazole 40 40 mg = 1 cap, Active [facility] MG Enteric PO, Daily, # 30 2017 [facility] Coated Capsule cap, 0 Refill(s) Levothyroxine 75 microgram = Active [facility] Sodium 0.075 MG 1 tab, PO, 2017 [facility] Oral Tablet Daily, # 30 [Synthroid] tab, 1 Refill(s) Hydralazine 100 mg = 1 tab, Active [facility] emorial Hydrochloride PO, BID, # 60 2016 [place] 100 MG Oral tab, 0 Tablet Refill(s) pravastatin 20 20 mg = 1 tab, Active 09/26[facility] mg oral tablet PO, Bedtime, # 2017 Ci ty 30 tab, 0 Refill(s) carvedilol 25 MG 25 mg = 1 tab, Active [facility] Oral Tablet PO, BID, # 60 2017 [facility] [Coreg] tab, 0 Refill(s) isosorbide 120 mg = 2 tab, Active [facility] morial mononitrate 60 PO, QPM, 0 2016 [facility] mg oral tablet, Refill(s) extended release liothyronine 50 microgram = Active [facility] emorial sodium 0.05 MG 1 tab, PO, 2017 [facility] Oral Tablet Daily, # 30 [Cytomel] tab, 0 Refill(s) losartan 50 mg 50 mg = 1 tab, Active [facility] oral tablet PO, BID, 0 2016 [facility] Refill(s) 24 HR Nifedipine 90 mg = 1 tab, Active [facility] 90 MG Extended PO, BID, # [...] ource type Reported Penicillins drug drug Active [place] allergy allergy Physicia ns penicillins Assertion Drug Active [facility] Immunizations No Data Provided for This Section Results Order Name Results Value Reference Date Interpretation Comments Barbara rce Range CHEM PANEL eGFR 7 11/11 Result Comment: [facility] eGFR is City calculated using the [...] 5.79 0.50 - 11/11 Lvl 1.40 /[address] [facility] CHEM PANEL CO2 24 24 - 32 11/[address] [facility] CHEM PANEL Potassium Lvl 5.3 3.5 - 5.1 11/[address] [facility] CHEM PANEL Chloride Lvl 100 95 - 109 11/[address] [facility] CHEM PANEL Sodium Lvl 139 135 - 145 11/[address] [facility] CHEM PANEL BUN 38 7 - 22 11/[address] [facility] CHEM PANEL Calcium Lvl 8.6 8.5 - 10.5 06/04 /[address] [facility] CHEM PANEL Glucose Lvl 148 70 - 99 06/ /[address] [facility] CHEM PANEL AGAP 20.3 10.0 - 06/ MH 20.0 /[address] [facility] HEMATOLOGY RDW 15.4 11.5 - 06/ MH 14.5 /[address] [facility] HEMATOLOGY MPV 8.7 7.4 - 10.4 06/ [facility] HEMATOLOGY Platelet 217 133 - 450 06/ /[address] [facility] HEMATOLOGY Hct 27.0 36.0 - 06/04 MH 48.0 /[address] [facility] HEMATOLOGY MCH 32.1 27.0 - 06/04 MH 31.0 /[address] [facility] HEMATOLOGY MCV 97.5 80.0 - 06 MH 98.0 /[address] [facility] HEMATOLOGY MCHC 32.9 32.0 - 06/ MH 36.0 /[address] [facility] HEMATOLOGY WBC 6.4 3.7 - 10.[address] [facility] HEMATOLOGY RBC 2.76 4.20 - 11/11 MH 5.40 /[address] [facility] HEMATOLOGY Hgb 8.9 12.0 - 06 MH 16.0 /[address] [facility] HEMATOLOGY Eosinophils # 0.1 0.0 - 0.5 06/ [facility] HEMATOLOGY Lymphocytes # 0.9 1.0 - 5.[address] [facility] HEMATOLOGY Monocytes # 0.7 0.0 - 0.8 06/ [facility] HEMATOLOGY Lymphocytes 14.1 20.0 - 06/ MH 40.0 /[address] [facility] HEMATOLOGY Eosinophils 1.9 0.0 - 4.0 06/ [facility] HEMATOLOGY Monocytes 10.7 2.0 - 12.0 06/ [facility] HEMATOLOGY Segs-Bands # 4.7 1.5 - 8.1 06/ [facility] HEMATOLOGY Basophils 0.7 0.0 - 1.0 06/ [facility] HEMATOLOGY Segs 72.6 45.0 - 06/04 MH 75.0 /[address] [facility] CHEM PANEL Phosphorus 3.9 2.5 - 4.[address] [facility] CHEM PANEL Magnesium Lvl 2.6 1.8 - 2.4 11/[address] [facility] ELECTROLYTES Chloride Lvl 102 95 - [address] [facility] ELECTROLYTES Calcium Lvl 8.6 8.5 - 10.5 11/[address] [facility] ELECTROLYTES Potassium Lvl 4.8 3.5 - 5.1 11/[address] [facility] ELECTROLYTES Sodium Lvl 141 135 - 145 11/[address] [facility] ELECTROLYTES CO2 29 24 - 32 11/[address] [facility] ELECTROLYTES Bili Total 0.7 0.2 - 1.3 11/[address] [facility] ELECTROLYTES Total Protein 6.0 6.4 - 8.4 11/[address] [facility] ELECTROLYTES Alk Phos 164 39 - 136 11/[address] [facility] ELECTROLYTES AST 14 0 - 37 11/[address] [facility] ELECTROLYTES ALT 14 0 - 65 11/[address] [facility] ELECTROLYTES Albumin Lvl 2.9 3.5 - 5.0 11/[address] [facility] ELECTROLYTES Glucose Lvl 153 70 - 99 11/[address] [facility] ELECTROLYTES Creatinine 4.87 0.50 - 11/10 MH Lvl 1.[address] [facility] ELECTROLYTES BUN 28 7 - 22 11/[address] [facility] ELECTROLYTES eGFR 9 11/10 Comment: [facility] eGFR is City calculated using the [...] AGAP 14.8 10.0 - [address] [facility] ELECTROLYTES A/G Ratio 0.9 0.7 - 1.6 11/[address] [facility] ELECTROLYTES Globulin 3.1 2.7 - 4.2 11/[address] [facility] ELECTROLYTES B/C Ratio 6 6 - 25 06/ /[address] [facility] HEMATOLOGY WBC 6.1 3.7 - 10.[address] [facility] HEMATOLOGY Hct 28.5 36.0 - 06 MH 48.0 /[address] [facility] HEMATOLOGY MCV 96.9 80.0 - 11/10 MH 98.0 /[address] [facility] HEMATOLOGY RBC 2.94 4.20 - 11/10 MH 5.40 /[address] [facility] HEMATOLOGY Hgb 9.5 12.0 - 11/10 MH 16.0 /[address] [facility] HEMATOLOGY RDW 15.4 11.5 - 11/10 MH 14.5 /[address] [facility] HEMATOLOGY Platelet 192 133 - [address] [facility] HEMATOLOGY MCH 32.1 27.0 - 11/10 MH 31.0 /[address] [facility] HEMATOLOGY MCHC 33.2 32.0 - 11/10 MH 36.0 /[address] [facility] HEMATOLOGY MPV 8.6 7.4 - 10.4 11/[address] [facility] HEMATOLOGY Eosinophils # 0.2 0.0 - 0.5 11/[address] [facility] HEMATOLOGY Lymphocytes # 1.2 1.0 - 5.5 11/[address] [facility] HEMATOLOGY Monocytes # 0.6 0.0 - 0.8 11/[address] [facility] HEMATOLOGY Eosinophils 3.7 0.0 - 4.0 11/[address] [facility] HEMATOLOGY Segs-Bands # 4.1 1.5 - 8.1 11/[address] [facility] HEMATOLOGY Basophils 0.7 0.0 - 1.0 11/[address] [facility] HEMATOLOGY Monocytes 9.3 2.0 - 12.0 11/[address] [facility] HEMATOLOGY Lymphocytes 19.5 20.0 - 11/[address] [facility] HEMATOLOGY Segs 66.8 45.0 - 11/10 MH 75.0 /[address] [facility] HEMATOLOGY POC 11.6 12.0 - 10/[address] [facility] HEMATOLOGY POC Glucose 110 70 - 99 10/[address] [facility] HEMATOLOGY POC Potassium 4.8 3.5 - 5.1 10/[address] [facility] HEMATOLOGY POC 34.0 36.0 - 10/[address] [facility] HEMATOLOGY POC Sodium 137 135 - 145 10/[address] [facility] Pathology Reports No Data Provided for This Section Diagnostic Reports Report Value Date Source Chest 1view DX EXAMINATION: Chest, 1 view 11/10/2016 [facility] HISTORY: Shortness of breath FINDINGS: Single frontal [...] PROCEDURE : LUMBAR SPINE MRI 01/18/2015 [facility] [place] contrast MRI REASON FOR EXAM: Lumbar stenosis. [...] foraminal narrowing. Mild spinal stenosis. IMPRESSION: 1. Mobile facet arthropathy and disc desiccat ion. 2. [...] Date Comments Source Respitory Rate 18 11/11/2016 [facility] it Systolic (mm Hg) 147 11/11/2016 [facility] Diastolic (mm Hg) 62 11/11/[address] [facility] Temperature Oral (F) 98.3 F 11/11/2016 [facility] Heart Rate 83 11/11/2016 [facility] y Temperature Oral (F) 98.6 F 11/11/2016 [facility] Respitory Rate 18 11/11/[facility] 81 11/11[facility] Systolic (mm Hg) 130 11/11/2016 [facility] [place] Diastolic (mm Hg) 58 11/11/[address] [facility] Heart Rate 74 11/11/2016 [facility] Systolic (mm Hg) 117 11/11/2016 [facility] [place] Diastolic (mm Hg) 57 11/11/[address] [facility] Respitory Rate 18 11/11/2016 [facility] Temperature Oral (F) 97.8 F 11/11/2016 [facility] BMI Calculated 20.31 11/10/2016 [facility] Weight 58.818 11/10/2016 [facility] Height 170.18 cm 11/10/2016 [facility] Respitory Rate 17 10/09/2016 [facility] Systolic (mm Hg) 100 10/09/2016 [facility] [place] Diastolic (mm Hg) 41 10/09/[address] [facility] Respitory Rate 12 [facility] Systolic (mm Hg) 111 10/09/2016 [facility] [place] Diastolic (mm Hg) 40 10/09/2016 [facility] [place] [facility] Respitory Rate 19 10/09/2016 [facility] Systolic (mm Hg) 112 10/09/2016 [facility] [place] Diastolic (mm Hg) 47 10/09/[address] [facility] Heart Rate 66 10/09/2016 [facility] BMI Calculated 19.16 09/26/2016 [facility] Height 170.18 cm 09/26/2016 [facility] Weight 55.483 09/26/2016 [facility] En[facility]ters Location Location Encounter Encounter Reason Attending ADM DC Stat us Source Details Type Number For Provider Date Date Visit AUDIT [id number] 08/04 /2012 Araceli ns AUDIT [id number] 08/06 /2012 Arcaeli ns AMI, [id number] 08/12 08/06 [place] Provider: LESLY Robin [place], Status: Pen, Time: 8:00 AM E[facility], [id number] 08/12 08/06 [place] Provider: DESTINY Robin ns Status: Pen, Time: 9:30 AM EST, [id number] 08/18 08/06 [place] Provider: ENRIQUE Sultana dia A, Status: Pen, Time: 1:30 PM AUDIT [id number] 08/25 Physicia ns AUDIT [id number] 09/24 Phys[facility] AUDIT [id number] 11/17 Physicia ns EST, [id number] 02/23 11/18 [place] Provider: ENRIQUE Sultana dia A, Status: Pen, Time: 1:30 PM [facility] Outpt Diag [id number] Laly 01/18 08 M [facility] 0 Jethro- /2014 [facility] Surgery [id number] Arash 10/09 10/09 ROSEMARY Fonseca 0 Lyos /2016 [facility] [id number] Randy 11/10 11/11 ROSEMARY Fonseca 4 Ismael [facility] Procedures Procedure Code Date Perfomer Comments Source B[id number] Bilateral [id number] [facility] Creation of [id number] [facility] arteriovenous shunt [facility] or fistula for dialysis by external cannula Hysterectomy [id number] [facility] Kidney transplant [id number] [facility] Nephrectomy [id number] [facility] Removal of breast [id number] [facility] implant [facility] Vascular surgery [id number] LEFT LEG WITH GREAT TOE AMPUTATION; [facility] procedure<sup>1</patel RIGHT LEG WITH G REAT TOE AMPUTATION [facility] p> Assessment and Plan No Data Provided for This Section Plan of Care Plan of Care Date Source [N] 2D Echo complete, with 11/18/2012 [facility] Doppler 08/04/2012 Routine [N] 2D Echo complete, with 09/25/2012 [facility] Doppler 08/04/2012 Routine Nuclear Test-Adenosine Stress 08/25/2012 [facility] Perfusion 08/04/2012 [id number] Echo complete, with Doppler 08/04/2012 Routine Nuclear Test-Adenosine Stress 08/06/2012 [facility] 08/04/2012 [id number] Echo complete, with Doppler 08/04/2012 Routine Nuclear Test-Adenosine Stress 08/04/2012 [facility] 08/04/2012 [id number] Echo complete, with Doppler 08/04/2012 Routine Social History Social History Date Source Social History TypeResponse 11/10/2016 [facility] Substance Abuse Use: None. IV drug use: [...] Nellie and section Former Smoker (V15.82); 11/18/2012 [facility] (Active) Family History Value Date Source Family history of Coronary 11/18/2012 [facility] Artery Disease (V17.49); (Active) Family history of Coronary 09/25/2012 [facility] Artery Disease (V17.49); (Active) Family history of Coronary 08/25/2012 [facility] Artery Disease (V17.49); (Active) Family history of Coronary 08/06/2012 [facility] Artery Disease (V17.49); (Active) Family history of Coronary 08/04/2012 [facility] Artery Disease (V17.49); (Active) Advance Directives Order Name Results Value Date Source Advance Directives Advance Directives No Advance 11/18/2012 [facility] Directives available. Advance Directives Advance Directives No Advance 09/25/2012 [facility] Directives available. Advance Directives Advance Directives No Advance 08/25/2012 [facility] Directives available. Advance Directives Advance Directives No Advance 08/06/2012 [facility] Directives available. Advance Directives Advance Directives No Advance 08/04/2012 [facility] Directives available. Functional Status No Data Provided for This Section
--- OUTSIDE RECORDS SUMMARY | 2020-07-01 10:44 | XMS REPORT | Continuity of Care Document ---
:1955 Author Organization [facility] Address [address] [place] [address] Care Team Providers Name Role Phone Melchor Lennon MD Primary Care Physician Nikolay Mathew MD Attending Clinician Yessi GARCIA, L Attending Clinician Bryant CHAMPION Attending Clinician Unavailable Darwin GARCIA YAshlee Attending Clinician Mercedes Granados MD Attending Clinician Billie Gonsales MD Attending Clinician [phone] iMke GARCIA Attending Clinician Mercedes GRANADOS Attending Clinician Unavailable Thao GARCIA, Viviana Attending Clinician Sree MARQUIS Attending Clinician Unavailable Ismael Attending Clinician Valeria Ward Attending Clinician Ene Mendoza Attending Clinician Mercedes GRANADOS Admitting Clinician Unavailable KANDIS, B. Admitting Clinician Unavailable Ismael Admitting Clinician Payers Payer Name Policy Type Policy Effective Date Expiration Date Sour ce Number MEDICAREMEDICARE PART [id number] 2004 Mitchell Shaffer AND 00:00:00 Amish [id number] 2004- [place] [facility] [id number] 2016 Eng [id number] 00:00:00 Met [place] /2016-PresentCommerascencion al MEDICAREMEDICARE A [id number] 2004 [facility] [id number] 2004- 00:00:00 - M edical PresentMedicare Center OTHER-COMMERCIALGENER [id number] 2018 ALDA Becker IC 00:00:00 - Medical [id number]/ Iain ter -Present Problems Condition Condition Condition Status Onset Resolution Last Treating Co mments Source Name Details Category Date Date Treatment Clinician Date S/P S/P Disease Active Last [place] femoral-po femoral-po 06-29 Assessmen Methodi pliteal pliteal 00:00: t & Plan: st bypass bypass 00 duplex surgery surgery reviewed by me. Patient is doing well and does not show any complicat ions related to her bypass surgery.P atient will return to clinic as needed or if complicat ions arise. PFO with PFO with Disease Active [place] atrial atrial 01-07 Methodi septal septal 00:00: st aneurysm aneurysm 00 HTN HTN Disease Active [place] (hypertens (hypertens 01-07 Tn thodi ion), ion), 00:00: st malignant malignant 00 End stage End stage Disease Active Damaris ston renal renal 01-07 Methodi disease disease 00:00: st 00 BREAST Diagnosis Active 2016-11-10 Mem oria IMPLANT 11-10 02:25:00 l HEMATOMA BREAST 00:00: Dennis n IMPLANT 00 HEMATOMA Active 11/10/2016 [facility] POSTTRAMAT Diagnosis Active 2017-04-02 Memoria IC 11-10 21:52:00 l HEMATOMA 00:00: [place] OF LEFT POSTTRAMAT 00 BREST IC HEMATOMA OF LEFT BREST Active 11/10/2016 [facility] [id number], Diagnosis Active 2017-0 2016-10-09 Memoria [id number] 4-06 05:36:00 l HISTORYOF 00:00: [place] BREAST [id number], 00 AUGME [id number] HISTORYOF BREAST AUGME Active 09/13/[facility] [...] Me moria Renal 02:06:24 l Disease End [place] Stage Renal Disease Active 3 [facility] Diabetes Problem Active 2012-11-18 Mem oria Mellitus 02:06:24 l With Diabetes Dennis n Complicati Mellitus on With Complicati on Active 11/18/2012 [facility] Chronic Problem Active 2012-11-18 Johnnie ena Kidney 02:06:24 l Disease Chronic Dennis n With Kidney Malignant Disease Hypertensi With on Malignant Hypertensi on Active 11/18/2012 [facility] Diabetes Problem Active 2016-11-14 Mem oria [...] 2016-11-14 M emoria ve 00:20:34 l disorder, [place] systemic Hypertensi arterial ve (disorder) disorder, systemic arterial (disorder) Active Problem 11/14/2016 [facility] ILLNESS, Diagnosis Active 2016-11-10 M emoria UNSPECIFIE 03:17:00 l D ILLNESS, Dennis n UNSPECIFIE D Active [facility] CONTUSION Diagnosis Active 2017-04-02 Memoria OF LEFT 21:52:00 l BREAST, [place] INITIAL CONTUSION ENCOUN OF LEFT BREAST, INITIAL [...] Penicill Active Memori a ins ins l [place] penicill penicill Active Memori a ins ins l [place] Family History Family Member Diagnosis Comments Start Date Stop Date Source Natural father Heart attack Eng Amish Natural mother Hypertension [place] Amish Natural mother Thyroid disease [place] Amish Natural sister Hypertension [place] Amish Unknown Family Family History 2012-08-04 2012-08-04 Memori al [place] Member 19:54:47 19:54:47 Social History Social Habit Start Date Stop Date Quantity Comments Source Exposure to Not sure [place] Metho dist SARS-CoV-2 (event) [facility] Binge Medical Iain ter [facility] Tobacco use and 2020-05-11 2020-05-[address] [facility] [facility] kes - exposure 00:00:00 00:00:00 [facility] Alcohol intake 2020-05-11 2020-05-[address] [facility] [address] Fady es - 00:00:00 00:00:00 non-drinker of Medical Ce nter alcohol (finding) History SDOH 2018-07-08 2018-07-[address] [facility] - Alcohol Frequency 00:00:00 00:00:00 [facility] Social History 2012-11-18 2012-11-18 [facility] 02:06:24 02:06:24 History of tobacco 2003-05-06 Current smoker [facility] use 00:00[facility]00 [facility] Smoking Status Start Date Stop Date Source Never smoker [place] t Former smoker 2020-05-11 00:00:00 2020-05-11 00:00:[address] [facility] Medications Ordered Filled Start Stop Current Ordering Indication Dosage Frequency Signature Comments Components Source Medication Medication Date Date Medication? Clinician (SIG) Name Name ascorbic 2019-06 Yes 1000mg QD Take 1,[address] acid, 2-01 mg by [facility] - vitamin C, 14:24: mouth Medica l (VITAMIN C) 27 daily. [place] 1000 MG tablet atropine 2019-06 Yes 1[drp] Q.09157594 [address] [facility] (ISOPTO) 1 2- [id number] (three) [facility] - % 14:24: 3D times Medical ophthalmic 27 daily. [place] solution b complex 2019-06 Yes 1{tbl} QD Take [address] vitamins 2-01 tablet by [facility]ukes - tablet 14:24: mouth Medical 27 daily. [place] biotin 1 mg 2019-06 Yes Take by [facility] Cap 2-01 mouth. [facility] - 14:24: Medical 27 [place] carvedilol 2019-06 Yes 25mg Take [address] (COREG) 25 2-01 by mouth 2 Fady es - MG tablet 14:24: (two) Medical 27 times Center daily with breakfast and dinner. cholecalcif 2019-06 Yes 5000U QD Take 5,[address] charlie, 2-01 Units by [facility] - vitamin D3, 14:24: mouth Medic al 5,000 unit 27 daily. [place] Tab esomeprazol 2019-06 Yes 40mg QD Take [address] e (NEXIUM) 2-01 by mouth [facility]ukes - 40 MG 14:24: daily. Medical capsule 27 [place] hydrALAZINE 2019-06 Yes 100mg Q.5D Take [address] (APRESOLINE 2-01 mg by [facility] - ) 100 MG 14:24: mouth 2 Medica l tablet 27 (two) Center times daily. isosorbide 2019-06 Yes 60mg QD Take [address] mononitrate 2-01 by mouth Luke s - (IMDUR) 60 14:24: daily. Medic al MG 24 hr 27 [place] tablet levothyroxi 2019-06 Yes 75ug Take [address] ne 2-01 mcg by Lukes - (SYNTHROID, 14:24: mouth Medic al LEVOTHROID) 27 Every Center 75 MCG morning on tablet an empty stomach. liothyronin 2019-06 Yes 5ug QD Take [address] e (CYTOMEL) 2-01 by mouth Luke s - 5 MCG 14:24: daily. Medical tablet 27 [place] losartan 2019-06 Yes 50mg QD Take [address] (COZAAR) 50 2- by mouth Luke s - MG tablet 14:24: daily. Medica l 27 [place] loteprednol 2019-06 Yes 1[drp] Q.25D [address] (LOTEMAX) 2- (four) Lukes - 0.5 % 14:24: times Medical ophthalmic 27 daily. Center suspension moxifloxaci 2019-06 Yes 1[drp] Q.88336154 [address] [facility] n (VIGAMOX) 2- [id number] (three) Lukes - 0.5 % 14:24: 3D times Medical ophthalmic 27 daily. [place] solution NIFEdipine 2019-06 Yes 90mg QD Take [address] (ADALAT CC) 2- by mouth Luke s - 90 MG 24 hr 14:24: daily. Medi latisha tablet 27 [place] insulin 2019-[address] [facility] aspart 2- subcutaneo Lukes - U-100 14:24: usly 3 Medical (NOVOLOG) 27 (three) Center 100 unit/mL times InPn daily with meals. omega 2019-06 Yes Take by [facility] 3-dha-epa-f 2- mouth. Lukes - liliana oil 14:24: Medical (FISH OIL) [address] [place] [address] 100-160-1,0 00 mg Cap pravastatin 2019-06 Yes 20mg QD Take [address] (PRAVACHOL) 2- by mouth Luke s - 20 MG 14:24: daily. Medical tablet 27 [place] prednisoLON 2019-06 Yes 1[drp] Q.25D [address] E acetate 2- (four) Lukes - (PRED 14:24: times Medical FORTE) 1 % 27 daily. [place] ophthalmic suspension timolol 2019-06 Yes 1[drp] Q.5D [address] (TIMOPTIC) 2- (two) Lukes - 0.5 % 14:24: times Medical ophthalmic 27 daily. [place] solution tobramycin 2019-06 Yes Q.44371102 3 (three) [facility] (TOBREX) 2- [id number] times Luke s - 0.3 % 14:24: 3D daily. Medical ophthalmic 27 [place] ointment traMADol 2019-06 Yes 50mg Take [address] (ULTRAM) 50 2-01 by mouth Luke s - mg tablet 14:24: every 6 Medic al 27 (six) Center hours as needed for Pain. pyridoxine, 2019-06 Yes 25mg QD Take [address] vitamin B6, 2-01 by mouth Luke s - (B-6) 25 MG 14:24: daily. Medi latisha tablet 27 Center folic 2019-06 Yes Take by [facility] acid/vit B 2-01 mouth. [facility]ukes - complex and 14:24: Medica l C 27 Center (ANNE MARIE-RAGHU ORAL) doxazosin 2019-06 Yes 1mg QD Take [address] (CARDURA) 1 2- by mouth Luke s - MG tablet 14:24: nightly. Medi latisha 27 [place] moxifloxaci 2019-06 2020- No 1[drp] Q.[id number] Place [address] n (VIGAMOX) 2- 12 [id number] drop into Lukes - 0.5 % 00:00: 23:59 3D the right Medica l ophthalmic 00 :00 eye 3 Center solution (three) times daily for 10 days. pantoprazol 2019-06- No 40mg QD Take [address] e 1-30 -30 by mouth Lukes - (PROTONIX) 09:52: 00:00 daily. Medi latisha 40 MG 31 :00 Center tablet multivitami 2019-06 2020- No 1{capsu QD Take [address] n capsule -09 05-30 le} capsule by Fady es - 09:52: 00:00 mouth Medical 21 :00 daily. [place] hydrOXYzine 2019-06 2020- No 10mg Take [address] (ATARAX) 10 -30 11-30 by mouth 3 L ukes - MG tablet 09:52: 00:00 (three) Medi latisha 05 :00 times Center daily as needed for Itching. ferrous 2019-06 2020- No 325mg Take [address] sulfate 325 1-30 11-30 mg by Lukes - (65 FE) MG 09:51: 00:00 mouth Medic al tablet 53 :00 daily with Center breakfast. clonidine 2019-06 2020- No Take by [facility] HCl 1-30 11-30 mouth. [facility]ukes - (CATAPRES 09:51: 00:00 Medical ORAL) 47 :00 Center Missing or 2019-06- No 40mg/d 40 mg/day. [facility] Non-Formula 1-30 11-30 Lukes - ry 09:51: 00:00 Medical Medication 25 :00 [place] apixaban 2019-06- No 2.5mg Q.5D Take 2.[address] (ELIQUIS) 1-27 11-27 mg by Lukes - 2.5 mg Tab 16:26: 00:00 mouth 2 Med ical tablet 37 :00 (two) Center times daily. ascorbic Yes 1000mg QD Take 1,000 H [...] st tablet 09 daily with breakfast. biotin Yes 1{tbl} Take 1 Eng 5,000 mcg 9-11 tablet by Metho di tablet,disi 08:56: mouth st ntegrating 09 daily. VITAMIN B Yes 1{tbl} Take 1 [place] COMPLEX VIT 9-11 tablet by Met chiu C NO.4 08:56: mouth st (SUPER B 09 daily. COMPLEX + C ORAL) cholecalcif Yes 1{tbl} Take 1 [place] charlie, 9-11 tablet by Methodi vitamin D3, 08:56: mouth st (VITAMIN 09 daily. D3) 5,000 unit tablet VIT B Yes 1{tbl} Take 1 Eng COMPLX 9-11 tablet by Methodi C/FOLIC 08:56: mouth st ACID/ZINC 09 daily. (DIALYVITE 800 WITH ZINC 50 ORAL) omega-3 Yes 1{tbl} Take 1 [place] fatty 9-11 tablet by Methodi acids-fish 08:56: mouth st oil (OMEGA 09 daily. 3 FISH OIL) 684-1,200 mg capsule,del ayed release(DR/ EC) NIFEdipine Yes 90mg Q.5D Take 90 mg H [...] st tablet 09 times a day. isosorbide 2017- Yes 120mg QD Take 120 [place] mononitrate 9-11 mg by Methodi (IMDUR) 60 08:56: mouth st MG 24 hr 09 daily. tablet carvedilol 2017- Yes 25mg Q.5D Take 25 mg [place] (COREG) 25 9-11 by mouth 2 Met hodi MG tablet 08:56: (two) st 09 times a day with meals. pravastatin 2017- Yes 20mg QD Take 20 mg Eng (PRAVACHOL) 9-11 by mouth Meth anitha 20 MG 08:56: daily. st tablet 09 levothyroxi 2017- Yes 75ug QD Take 75 Damaris ston ne 9-11 mcg by Methodi (SYNTHROID) 08:56: mouth st 75 mcg 09 every tablet morning. sevelamer 2017-0 Yes 800mg Q.01911014 Take 800 Eng (RENVELA) 9-11 [id number] mg by Met hodi 800 mg 08:56: 3D mouth 3 st tablet 09 (three) times a day with meals. UNABLE TO 2017-0 Yes Med Name: Damaris alberto FIND 02-18 Novalog Methodi 08:56: Insulin st 09 Pump bifidobacte 2016- Yes 1 tab, Johnnie ena rium-lactob 6-04 CHEW, l acillus 14:29: Daily, # Dennis n oral 00 30 tab, 0 tablet, Refill(s) chewable clindamycin 2016- Yes 150 mg = 1 Memoria 150 mg oral 6-04 cap, PO, l capsule 14:29: Q6H, X 14 Marichuy nn 00 day, # 56 cap, 0 Refill(s) Pravastatin 2016- No Notes: Johnnie ena 6-04 (Same as: l 02:00: Pravachol) [place] 00 Isosorbide No Notes: Memor ia 11-11 (Same l 02:00: as:Imdur) [place] 00 Do not crush Cleocin HCl No Notes: Johnnie ena + sodium 11-11 (clindamyc l chloride 01:00: in 150 [place] 0.9% INJ 50 00 mg/1 ml mL (600 mg/4 ml VL) INJ) (Same As: Cleocin) Protonix No Notes: Memoria - Tablet l 21:30: should not [place]undo 00 be chewed or crushed. (Same as: Protonix) Morphine No Notes: Memoria 11-10 (Same l 21:04: as:MORPhin [place] 00 e Sulfate) Acetaminoph No Notes: Johnnie ena en 325 MG / 11-10 Same as l Hydrocodone 21:03: [place] Marichuy nn Bitartrate 00 325-7.5mg 7.5 MG Oral Do not Tablet exceed 4gm/day of acetaminop hen. ondansetron No Route: IV, Memoria (ANES) 11-10 Drug form: l 17:56: INJ, ONCE, Ray[place] Stop date: 11/10/16 12:56:00 CDT acetaminoph No Route: IV, Memoria en (ANES) 11-10 Drug form: l 17:26: INJ, ONCE, [place] Stop date: 11/10/16 12:26:00 CDT famotidine No Route: IV, M emoria (ANES) 11-10 Drug form: l 17:26: INJ, ONCE, [place] 00 Stop date: 11/10/16 12:26:00 CDT Cleocin No Route: IV, Johnnie ena Phosphate 11-10 Drug form: l (ANES) + 17:21: INJ, ONCE, Her durán sodium 00 Stop date: chloride 11/10/16 0.9% 100 ml 12:21:00 INJ (ANES) CDT ePHEDrine No Route: IV, Me moria (ANES) 11-10 Drug form: l 17:21: INJ, ONCE, [place] Stop date: 11/10/16 12:21:00 CDT fentaNYL No Route: IV, Mem oria (ANES) 11-10 Drug form: l 17:21: INJ, ONCE, Stop date: 11/10/16 12:21:00 CDT propofol No Route: IV, Mem oria (ANES) 11-10 Drug form: l 17:21: INJ, ONCE, Stop date: 11/10/16 12:21:00 CDT midazolam No Route: IV, Me moria (ANES) 11-10 Drug form: l 17:21: SOLN, ONCE, Stop date: 11/10/16 12:21:00 CDT succinylcho No Route: IV, Memoria line (ANES) 11-10 Drug form: l 17:11: INJ, ONCE, Stop date: 11/10/16 12:11:00 CDT Diphenhydra No Notes: Johnnie ena mine 6-03 (Same as: l 17:11: Benadryl) Naloxone No Notes: Memoria 6-03 Same as l 17:11: Narcan Flumazenil No Notes: Memor ia 6-03 (Same as: l 17:11: Romazicon) Morphine No Notes: Memoria 6-03 (Same l 17:11: as:MORPhin e Sulfate) Hydromorpho No Notes: Johnnie ena ne 6-03 Same as l 17:11: Dilaudid Meperidine No Notes: Memor ia 6-03 (Same as: l 17:11: Demerol) "Use Precaution in Elderly, Seizure disorders, and Renal impairment " Ondansetron No Notes: Johnnie ena 6-03 (Same as: l 17:11: Zofran) MEDICATION WASTE [...] 11/10/16 12:17:00 CDT Docusate No Notes: Memoria 11-10 (Same as: l 14:00: Colace) [place] 00 (Do Not Crush) Hydralazine No Notes: Johnnie ena Hydrochlori 11-10 (Same as: l de 100 MG 14:00: Apresoline He rmann Oral Tablet 00 ) May interfere w/enteral feedings Take With Food Esomeprazol No 40 mg, Johnnie ena e 11-10 Route: PO, l 14:00: Drug form: ECCAP, Daily, Dosing Weight 58.818, kg, Start date: 11/10/16 9:00:00 CDT, Duration: 30 day, Stop date: 12/09/16 9:00:00 CDT Coreg No Notes: Memoria 6- Give with l 14:00: food. [place] 00 (Same As: Coreg) Renvela No Notes: Memoria 6 Same as: l 13:00: Renvela Synthroid No Notes: Memori a - Take 1 l 11:30: hour before or 2 hours after meal; Enteral feeds may interefere with the absorption of this medication . (Same as:Synthro id, Levothroid ) Cytomel No Notes: Memoria 11-10 (Same as: l 11:30: Cytomel) Glucagon No 1 mg, Memoria 6 Route: IM, l 08:25: Drug form: PDR/INJ, [...] Route: IV, l 0.9% IV 08:07: Start date: 11/10/16 3:07:00 CDT, Duration: 30 day, Stop date: 12/10/16 3:06:00 CDT, PRN Line Flush BD Normal No Notes: Memori a Saline 11-10 (Same as: l Flush 08:07: BD [place] 00 Posiflush) Acetaminoph No Notes: Johnnie ena en 325 MG / 11-10 (Same as: l Hydrocodone 07:57: [place] Marichuy nn Bitartrate 00 325/5) Do 5 MG Oral not exceed Tablet 4gm/day of acetaminop hen. Morphine No Notes: Memoria - (Same l 07:57: as:MORPhin e Sulfate) Acetaminoph No Notes: Do M emoria en - not exceed l 07:57: 4 gm/day. [place]undo (Same as: Tylenol) Ondansetron No Notes: Johnnie ena - (Same as: l 07:57: Zofran) MEDICATION WASTE Product Size: 4 mg Product Wasted: ___ mg hydrALAZINE Yes 100mg Q.5D Take 100 [place] (APRESOLINE 5-31 mg by Methodi ) 100 MG 00:00: mouth 2 st tablet 00 (two) times a day. ondansetron 2016- No Route: IV, Memoria (ANES) 5-02 Drug form: l 21:09: INJ, ONCE, Stop date: 10/09/16 16:09:00 CDT fentaNYL No Route: IV, Mem oria (ANES) 5-02 Drug form: l 21:09: INJ, ONCE, Stop date: 10/09/16 16:09:00 CDT EPINEPHrine 2016- No Route: IV, Memoria (ANES) 5-02 Drug form: l 19:53: INJ, ONCE, Stop date: 10/09/16 14:53:00 CDT midazolam 2016- No Route: IV, Me moria (ANES) 5-02 Drug form: l 19:43: SOLN, ONCE, Stop date: 10/09/16 14:43:00 CDT lidocaine No Route: IV, Me moria (ANES) 5-02 Drug form: l 19:43: INJ, ONCE, Stop date: 10/09/16 14:43:00 CDT Cleocin No Route: IV, Johnnie ena Phosphate 5- Drug form: l (ANES) 19:32: INJ, ONCE, Marich[place] Stop date: 10/09/16 14:32:00 CDT dexamethaso No Route: IV, Memoria ne (ANES) 5- Drug form: l 19:27: INJ, ONCE, Stop date: 10/09/16 14:27:00 CDT propofol No Route: IV, Mem oria (ANES) 5-02 Drug form: l 19:27: INJ, ONCE, Stop date: 10/09/16 14:27:00 CDT ePHEDrine No Route: IV, Me moria (ANES) 5-02 Drug form: l 19:27: INJ, ONCE, Stop date: 10/09/16 14:27:00 CDT fentaNYL No Route: IV, Mem oria (ANES) 5-02 Drug form: l 19:27: INJ, ONCE, Stop date: 10/09/16 14:27:00 CDT sodium 2016-0 No Route: IV, Memor ia chloride 10-09 Total l 0.9% 1000 18:22: Volume: Marichuy nn ml INJ 00 1,000, (ANES) Start date: 10/09/16 13:22:00 CDT, Stop date: 10/09/16 14:22:00 CDT Exparel 2016-0 Yes Notes: Memoria 10-09 (Same as: l 17:46: Exparel) [place] NOT FOR IV use Postoperat cristian analgesia: [...] moria e 10-09 Route: l 17:41: IVPB, [place] 00 ONCE, Dosing Weight 55.483, kg, PRN Nausea & Vomiting, Start date: 10/09/16 12:41:00 CDT Dexamethaso 2017-0 No 4 mg, Memor ia ne 10-09 Route: l 17:41: IVP, ONCE, [place] 00 Dosing Weight 55.483, kg, PRN Nausea & Vomiting, Start date: 10/09/16 12:41:00 CDT Lorazepam 2017-0 No 0.5 mg, Memor ia 10-09 Route: l 17:41: IVP, [place] 00 Q20Min, Dosing Weight 55.483, kg, PRN Anxiety, Start date: 10/09/16 12:41:00 CDT, Duration: 3 doses or times, Stop date: Limited # of times 72 HR Yes Notes: Memoria Scopolamine 10-09 Change l 0.0139 17:41: patch Ray[place] MG/HR 00 every 72 Transdermal hours Patch (Same as: Transderm- Scop) Ondansetron No 4 mg, Memor ia 10-09 Route: l 17:41: IVP, ONCE, [place] 00 Dosing Weight 55.483, kg, PRN Nausea & Vomiting, Start date: 10/09/16 12:41:00 CDT Meperidine No 12.5 mg, Mem oria 10-09 Route: l 17:41: IVP, [place] 00 Q30Min, Dosing Weight 55.483, kg, PRN Other -See Comment, For shivering, Start date: 10/09/16 12:41:00 CDT, Duration: 2 doses or times, Stop date: Limited # of times Albuterol No 2.49 mg, Johnnie ena 0.83 MG/ML 10-09 Route: l Inhalant 17:41: NEB, PRN, Herm priya Solution 00 Dosing Weight 55.483, kg, PRN Respirator y Protocol, Start date: 10/09/16 12:41:00 CDT, Duration: 30 day, Stop date: 11/08/16 12:40:00 CDT 200 ACTUAT Yes Notes: Memor ia Albuterol 10-09 Albuterol l 0.09 17:41: 90 Ray[place] MG/ACTUAT 00 microgram/ Metered inh 8gm Dose HFA Inhaler WASTE: Aerosol - Return to Pharmacy Same as: Fozia Mosley Morphine No 2 mg, Memoria 10-09 Route: l 17:41: IVP, [place] 00 Q5Min, Dosing Weight 55.483, kg, PRN Pain Score 4-6, Start date: 10/09/16 12:41:00 CDT, Duration: 5 doses or times, Stop date: Limited # of times Diphenhydra No 12.5 mg, Me moria mine 10-09 Route: l 17:41: IVP, Drug Ray[place]undo 00 form: INJ, Q6H, Dosing Weight 55.483, kg, PRN Itching, Start date: 10/09/16 12:41:00 CDT, Duration: 30 day, Stop date: 11/08/16 12:40:00 CDT Racepinephr 2017-0 No 0.5 mL, Mem oria ine 10-09 Route: l 17:41: NEB, [place] 00 Dosing Weight 55.483, kg, PRN, PRN Shortness of breath, Start date: 10/09/16 12:41:00 CDT, Duration: 30 day, Stop date: 11/08/16 12:40:00 CDT Flumazenil 2017-0 No 0.2 mg, Johnnie ena 10-09 Route: l 17:41: IVP, PRN, [place] 00 Dosing Weight 55.483, kg, PRN Benzodiaze pine Reversal, Initial dose, Start date: 10/09/16 12:41:00 CDT, Duration: 30 day, Stop date: 11/08/16 12:40:00 CDT Ephedrine 2017-0 No 5 mg, Memoria 10-09 Route: l 17:41: IVP, [place] 00 Q5Min, Dosing Weight 55.483, kg, PRN Low Blood Pressure, Start date: 10/09/16 12:41:00 CDT, Duration: 30 day, Stop date: 11/08/16 12:40:00 CDT Naloxone 2017-0 No 0.4 mg, Memori a 10-09 Route: l 17:41: IVP, [place] 00 Q2MIN, Dosing Weight 55.483, kg, PRN Narcotic Reversal, Start date: 10/09/16 12:41:00 CDT, Duration: 8 doses or times, Stop date: Limited # of times Ketorolac 2017-0 Yes 4 days Memor ia 10-09 l 17:41: MEDICATION [place] 00 WASTE Product Size: 30 mg Product Wasted: 15 mg Acetaminoph 2017-0 No 1,000 mg, M emoria en 10-09 Route: PO, l 17:41: Drug form: [place] 00 TAB, ONCE, Dosing Weight 55.483, kg, PRN Pain Score 1-3, Start date: 10/09/16 12:41:00 CDT, Duration: 1 doses or times, Stop date: Limited # of times esmolol 2017-0 No 10 mg, Memoria 5-02 Route: l 17:41: IVP, [place] 00 Q5Min, [...] Memori a 10-09 Route: l 17:41: IVP, [place] 00 Q5Min, Dosing Weight 55.483, kg, PRN Elevated BP, Start date: 10/09/16 12:41:00 CDT, Duration: 5 doses or times, Stop date: Limited # of times Metoprolol 2016-0 No 1 mg, Memori a 10-09 Route: l 17:41: IVP, [place] 00 Q5Min, Dosing Weight 55.483, kg, PRN Other -See Comment, Start date: 10/09/16 12:41:00 CDT, Duration: 5 doses or times, Stop date: Limited # of times Hydralazine 2016-0 No 10 mg, Johnnie ena 10-09 Route: l 17:41: IVP, [place] 00 Q20Min, Dosing Weight 55.483, kg, PRN Elevated BP, Start date: 10/09/16 12:41:00 CDT, Duration: 2 doses or times, Stop date: Limited # of times Hydromorpho 2016-0 No 0.5 mg, Mem oria ne 10-09 Route: l 17:41: IVP, [place] 00 Q5Min, Dosing Weight 55.483, kg, PRN Pain Score 7-10, Start date: 10/09/16 12:41:00 CDT, Duration: 4 doses or times, Stop date: Limited # of times Clindamycin 2016-0 Yes Notes: Johnnie ena 10-09 (Same As: l 17:32: Cleocin) [place] 00 Sodium 2017-0 No 500 mL, Memoria Chloride 5-02 Route: IV, l 0.154 17:21: ONCE, [place] MEQ/ML 00 Dosing Injectable Weight Solution 55.483 kg, Start date: 10/09/16 12:21:00 CDT, Stop date: 10/09/16 12:21:00 CDT, [place] esomeprazol Yes 40mg Q.5D Take 40 mg Eng e (NexIUM) 4-25 by mouth 2 Met hodi 40 MG 00:00: (two) st capsule 00 times a day. NovoLog Yes See Memoria 4-19 Instructio l 19:29: ns, 0 [place] 00 Refill(s) sevelamer Yes 800 mg = [...] l 0.05 MG 19:26: = 1 tab, Dnenis n Oral Tablet 00 PO, Daily, [Cytomel] # 30 tab, 0 Refill(s) losartan 50 Yes 50 mg = 1 M emoria mg oral 4-19 tab, PO, l tablet 19:26: BID, 0 [place] 00 Refill(s) 24 HR Yes 90 mg = 1 Memoria Nifedipine 4-19 tab, PO, l 90 MG 19:26: BID, # 90 [place] Extended 00 tab, 1 Release Refill(s) Tablet Super B Yes (Active) Memor ia Complex 6-11 l TABS 02:06: [place] 24 Vitamin D3 Yes (Active) Me moria 5000 UNIT 6-11 l Oral 02:06: [place] Capsule 24 Multi For Yes (Active) Mem oria Her 50+ 6-11 l Oral 02:06: [place] Capsule 24 Pantoprazol Yes (Active) M emoria e Sodium 40 6-11 l MG Oral 02:06: [place] Tablet 24 Delayed Release CloNIDine Yes (Active) [...] Potassium 6-11 l 50 MG Oral 02:06: [place] Tablet 24 Renvela 800 Yes (Active) M emoria MG Oral 6-11 l Tablet 02:06: [place] 24 Cytomel 5 Yes (Active) Mem oria MCG Oral 6-11 l Tablet 02:06: [place] 24 Synthroid Yes (Active) Mem oria 75 MCG Oral 6-11 l Tablet 02:06: [place] 24 Zantac 150 Yes (Active) Me moria MG Oral 6-11 l Tablet 02:06: [place] 24 Apidra 100 Yes (Active) Me moria UNIT/ML 6-11 l Injection 02:06: [place] Solution 24 AmLODIPine Yes (Active) Me moria [...] 250 MG Oral 6-11 l Tablet 02:06: [place] 24 Iron 25 MG Yes (Active) Me moria TABS 6-11 l 02:06: [place] 24 Vitamin B12 Yes (Active) M emoria TABS 6-11 l 02:06: [place] 24 Topiramate Yes (Active) Me moria 25 MG Oral 6-11 l Tablet 02:06: [place] 24 Vital Signs Vital Name Observation Time Observation Value Comments Source Systolic blood 2020-06-29 12:55:00 154 mm[Hg] [place] [facility] pressure Diastolic blood 2020-06-29 12:55:00 63 mm[Hg] [place] [facility] pressure Heart rate 2020-06-29 12:55:00 74 /min [place] [facility] Body height 2020-06-29 12:55:00 165.1 cm [place] [facility] Body weight 2020-06-29 12:55:00 51.8 kg [place] [facility] BMI 2020-06-29 12:55:00 19.00 kg/m2 [place] [facility] Oxygen saturation in 2020-06-29 12:55:00 98 /min [place] [facility] Arterial blood by Pulse oximetry Systolic blood 2020-05-10 12:40:00 117 mm[Hg] [facility] Diastolic blood 2020-05-10 12:40:00 49 mm[Hg] [facility] Heart rate 2020-05-10 12:40:00 75 /min [facility] Respiratory rate 2020-05-10 12:40:00 18 /min [facility] Oxygen saturation in 2020-05-10 12:40:00 95 /min [facility] - Arterial blood by Medical Ce nter Pulse oximetry Body temperature 2020-05-10 12:11:00 35.72 Sonya [facility] Body height 2020-05-06 16:32:00 167.6 cm [facility] Body weight 2020-05-06 16:32:00 53.978 kg [facility] BMI 2020-05-06 16:32:00 19.21 kg/m2 [facility] Respitory Rate 2016-11-11 12:12:00 [facility] [place] Systolic (mm Hg) 2016-11-11 12:12:00 Johnnie rial [place] Diastolic (mm Hg) 2016-11-11 12:12:00 [facility] [place] Temperature Oral (F) 2016-11-11 12:12:00 98.3 F [facility] Heart Rate 2016-11-11 12:12:00 [facility] Temperature Oral (F) 2016-11-11 09:00:00 98.6 F [facility] Respitory Rate 2016-11-11 09:00:00 [facility] [place] Heart Rate 2016-11-11 09:00:00 [facility] Systolic (mm Hg) 2016-11-11 09:00:00 Johnnie rial [place] Diastolic (mm Hg) 2016-11-11 09:00:00 [facility] [place] Heart Rate 2016-11-11 05:00:00 [facility] [place] Systolic (mm Hg) 2016-11-11 05:00:00 Johnnie [facility] [place] Diastolic (mm Hg) 2016-11-11 05:00:00 [facility] [place] Respitory Rate 2016-11-11 05:00:00 [facility] [place] Temperature Oral (F) 2016-11-11 05:00:00 97.8 F [facility] BMI Calculated 2016-11-10 08:39:00 [facility] [place] Weight 2016-11-10 08:39:00 [facility] [place] Height 2016-11-10 08:39:00 170.18 cm [facility] [place] Respitory Rate 2016-10-09 22:35:00 [facility] [place] Systolic (mm Hg) 2016-10-09 22:30:00 Johnnie rial [place] Diastolic (mm Hg) 2016-10-09 22:30:00 [facility] [place] Respitory Rate 2016-10-09 22:30:00 [facility] [place] Systolic (mm Hg) 2016-10-09 22:00:00 Johnnie rial [place] Diastolic (mm Hg) 2016-10-09 22:00:00 [facility] [place] Respitory Rate 2016-10-09 22:00:00 [facility] [place] Systolic (mm Hg) 2016-10-09 21:55:00 Johnnie [facility] [place] Diastolic (mm Hg) 2016-10-09 21:55:00 [facility] [place] Heart Rate 2016-10-09 17:23:00 [facility] BMI Calculated 2016-09-26 19:14:00 [facility] [place] Height 2016-09-26 19:14:00 170.18 cm [facility] Weight 2016-09-26 19:14:00 [facility] [place] Procedures Procedure Date / Time Performing Clinician Source Performed AEROBIC CULTURE 2020-05-10 21:41:00 Kathie Granados [facility] ANAEROBIC CULTURE 2020-05-10 21:41:00 Kathie Granados [facility] FUNGUS CULTURE 2020-05-10 21:41:00 Kathie Granados [facility] TRANSPLANT,CORNEAL 2020-05-10 10:10:00 Kathie Granados [facility] CONSTRUCTION,INTERMARGIN 2020-05-10 10:10:00 Kathie Granados [facility] RECONSTRUCTION,OCULAR 2020-05-10 10:10:00 Kathie Granados [facility] AMNIOTIC [facility] TRANSPLANT SURGICAL PATHOLOGY 2020-05-10 09:30:00 Kathie Granados [facility] REQUEST BASIC METABOLIC PANEL 2020-05-10 08:00:00 Yessica Mckeon [facility] () [facility] Bilateral breast [facility] implants Bilateral mastectomy [facility] Creation of [facility] arteriovenous shunt or fistula for dialysis by external cannula [facility] Neph[facility] Removal of breast [facility] implant Vascular surgery [facility] Dennis procedure<sup>1</sup> Plan of Care Planned Activity Planned Date Details Comments Source Future Scheduled 2020-02-09 INFLUENZA VACCINE (#1) [facility] Test 00:00:00 [code = INFLUENZA Medical Ce nter VACCINE (#1)] Future Scheduled 2020-01-09 INFLUENZA VACCINE [place] [facility] Test 00:00:00 [code = INFLUENZA VACCINE] Future Scheduled 2019 65+ PNEUMOCOCCAL [place] [facility] Test 00:00:00 VACCINE (1 of 1 - PPSV23) [code = 65+ PNEUMOCOCCAL VACCINE (1 of 1 - PPSV23)] Future Scheduled 2019 PNEUMOCOCCAL 65+ YRS [facility] - Test 00:00:00 (1 of 1 - Medical Center [id number] PCV13) [code = PNEUMOCOCCAL 65+ YRS (1 of 1 - [id number] PCV13)] Future Scheduled 2012-11-18 Plan of Care [code = Mem [facility] [place] Test 02:06:24 67783-3] Future Scheduled 2012-09-25 Plan of Care [code = Mem [facility] [place] Test 00:09:12 87757-4] Future Scheduled 2012-08-25 Plan of Care [code = Mem [facility] [place] Test 21:39:37 30203-0] Future Scheduled 2012-08-06 Plan of Care [code = Mem [facility] [place] Test 22:03:58 85786-3] Future Scheduled 2012-08-04 Plan of Care [code = Mem [facility] [place] Test 19:54:47 76364-4] Future Scheduled 2005-12-[address] [facility] Test 00:00:00 WELLNESS (YEAR 2 or [facility] Center FIRST YEAR if no IPPE) [code = MEDICARE ANNUAL WELLNESS (YEAR 2 or FIRST YEAR if no IPPE)] Future Scheduled 2004-02-15 BREAST CANCER Eng [facility] Test 00:00:00 SCREENING [code = BREAST CANCER SCREENING] Future Scheduled 2004-02-15 COLONOSCOPY SCREENING [facility] Test 00:00:00 [code = COLONOSCOPY SCREENING] Future Scheduled 2004-02-15 SHINGLES VACCINES (#1) [facility] [facility] Test 00:00:00 [code = SHINGLES VACCINES (#1)] Future Scheduled 1970 COVID-19 VACCINE (1 of [place] [facility] Test 00:00:00 2) [code = COVID-19 VACCINE (1 of 2)] Future Scheduled 1964-02-15 DIABETES: RETINAL EYE [place] [facility] Test 00:00:00 EXAM [code = DIABETES: RETINAL EYE EXAM] Future Scheduled 1964-02-15 DIABETIC FOOT EXAM [place] [facility] Test 00:00:00 [code = DIABETIC FOOT EXAM] Future Scheduled [address] [facility] - Test 00:00:00 malignant neoplasm of [facility] breast (procedure) [code = 837309099] Future Scheduled [address] [facility] - Test 00:00:00 malignant neoplasm of [facility] colon (procedure) [code = 332640265] Encounters Start End Encounter Admission Attending Care Care Encounter Source Date/Time Date/Time Type Type Clinicians Facility Department ID 2020-06-29 2020-06-29 Outpatient [facility] [id number] [place] 00:00:00 00:00:00 SRIRAM 485 Method i 2020-06-29 2020-06-29 Outpatient [facility] [id number] [place] 00:00:00 00:00:00 SRIRAM 486 Method i 2020-06-29 2020-06-29 Outpatient [facility] [id number] [place] 00:00:00 00:00:00 SRIRAM 487 Method i 2020-06-20 2020-06-20 Telephone [facility] [id number] 00:00:00 00:00:00 [facility] [id number] Surgical 4.2.7.2.686 Specialti [id number] es 198 [place] 2020-06-17 2020-06-17 [facility] [id number] 09:52:23 23:59:00 Encounter Eligio [facility] [id number] Surgical 4.2.7.2.686 Specialti [id number] es 809 [place] 2020-06-14 2020-06-14 Telephone [facility] [id number] 00:00:00 00:00:00 [facility] [id number] Surgical 4.2.7.2.686 Specialti [id number] Anais [place] 2020-05-10 2020-05-10 Outpatient [facility] [id number] [address] [place] [address] 00:00:00 00:00:00 KATHIE Hendrix[address] [facility] [address] 2019-01-19 2019-01-19 Office WICHO Osuna 1.2.840.114 [id number] 13:06:45 13:21:45 Visit Yara AMBULATOR [id number] Viviana Y 0.2.7.2.686 [id number] 300 2016-11-10 2016-11-11 [id number] 02:58:00 13:50:00 Randy 54 2016-10-09 2016-10-09 [facility] [id number] 05:34:00 17:50:00 Arash Valeria 2015-01-18 2015-01-18 Outpatient Kary MHOIP OIP [id number] 16:28:00 23:59:00 adama, Misa Luque 2012-11-17 2012-11-17 Outpatient [facility]IE MHIE [id number] 21:06:45 21:06:24 2012-09-24 2012-09-24 Outpatient [facility]IE [facility]IE [id number] 19:09:31 19:09:12 2012-08-25 2012-08-25 Outpatient MHIE MHIE [id number] 16:39:55 16:39:37 2012-08-06 2012-08-06 Outpatient MHIE MHIE [id number] 16:04:16 16:03:58 2012-08-04 2012-08-04 Outpatient MHIE MHIE [id number] 13:55:06 13:54:47 Results Test Description Test Time Test Comments Results Result Comments Source Fungus culture 2020-06-08 00:15:46 Test Item Value Reference Range Interpretation Comme nts Fungus culture isolate No growth after 4 weeks of Specimen InformationSpecimen (test code = 1441) incubation. Source: E yeSpecimen Site: Cor[place]al rim [place] [facility] [id number] 10:58:02 Test Item Value Reference Range Interpretation Comments Case number (test code = [id number]) Surgical pathology See link below for report (test code = PDF Lab Report [id number]) Result status (test code This is Final Report = [id number]) for [id number] [place] MethodistAnaerobic jovncfs1143-31-22 08:20:35 Test Item Value Reference Range Interpretation Comments Anaerobic No anaerobic Specimen culture isolate organisms InformationS pecimen (test code = isolated. [facility]) [place]neal [place] [facility] [id number] 07:18:01 Test Item Value Reference Range Interpretation Comments Aerobic culture No growth Specimen isolate (test after 3 days. InformationSp ecimen code = 498) [facility] Site: [place]al [place] MethodistBasic Metabolic [id number] 08:25:00 Test Item Value Reference Range Interpretation Comments Sodium (test code = 137 meq/L 320-205 6274-2) Potassium (test code = 4.7 meq/L 3.5-5.1 2823-3) Chloride (test code = 101 meq/L 98-107 2075-0) CO2 (test code = 32 meq/L 22-29 H 2028-9) BUN (test code = 23 mg/dL 7-21 H 3094-0) Creatinine (test code = 3.88 mg/dL 0.57-1.25 H 2160-0) Glucose (test code = 119 mg/dL 70-105 H 2345-7) Calcium (test code = 9.1 mg/dL 8.4-10.2 16537-3) EGFR (test code = 12 mL/min/1.73 [place] [address]-0) NOT ACCURATE CREATININE CLEARANCE IN PREDICTING GLOMERULAR FILTRATION RATE . ESTIMATED GFR I S NOT APPLICABLE FOR DIALYSIS PATIEN TS. Lab Interpretation Abnormal (test code = 28042-3) [facility] METABOLIC [id number] 08:25:00 Test Item Value Reference Range Interpretation Comments SODIUM (BEAKER) 137 meq/L 136-145 (test code = 381) POTASSIUM (BEAKER) 4.7 meq/L 3.5-5.1 (test code = 379) CHLORIDE (BEAKER) 101 meq/L 98-107 (test code = 382) CO2 (BEAKER) (test 32 meq/L 22-29 H code = 355) BLOOD UREA NITROGEN 23 mg/dL 7-21 H (BEAKER) (test code = 354) CREATININE (BEAKER) 3.88 mg/dL 0.57-1.25 H (test code = 358) GLUCOSE RANDOM 119 mg/dL 70-105 H (BEAKER) (test code = 652) CALCIUM (BEAKER) 9.1 mg/dL 8.4-10.2 (test code = 697) EGFR (BEAKER) (test 12 mL/min/1.73 ESTIMA [place]ER[place] GFR IS code = 1092) sq m NOT ACCURATE CREATININE CLEARANCE IN PREDICTING GLOMERULAR FILTRATION RATE . ESTIMATED GFR I S NOT APPLICABLE FOR DIALYSIS PATIEN TS. [id number] 12:25:00 Test Item Value Reference Range Interpretation Comments POC-SODIUM (BEAKER) 139 meq/L 135-148 TESTED A T [facility] 7200 (test code = 1542) [place] [id number] 0 [id number] 12:25:00 Test Item Value Reference Range Interpretation Comments POC-POTASSIUM 4.1 meq/L 3.6-5.5 TESTED AT [facility] 7200 (BEAKER) (test code [facility] B = 1540) [place] 393633 0 [id number] 12:25:00 Test Item Value Reference Range Interpretation Comments POC-BUN (BEAKER) 20 mg/dL 7-21 TESTED AT [facility] 7200 (test code = 2842) [facility] [address] [id number] 12:25:00 Test Item Value Reference Range Interpretation Comments POC-CHLORIDE 101 meq/L 98-107 TESTED AT [facility] 7200 (BEAKER) (test code [facility] B = 2843) [facility] 7703 0 [id number] 12:25:00 Test Item Value Reference Range Interpretation Comments POC-GLUCOSE (BEAKER) 155 mg/dL 70-110 H TESTED AT [facility] 7200 (test code = 1855) [facility] 7703 0 [id number] 12:25:00 Test Item Value Reference Range Interpretation Comments POC-HEMATOCRIT 37 % 36-45 TESTED AT [facility] 7200 ([facility]) (test code = [place] [address] [address] [place] 1857) [place] [address] [id number] 12:25:00 Test Item Value Reference Range Interpretation Comments POC-HEMOGLOBIN 12.6 g/dL 12.0-15.0 TESTED AT [facility] 7200 ([facility]) (test code [place] E BLDG B = 1856) [facility] 770 0TESTED AT [facility] 72 00 [facility] B [place] [address] 0 CHEM [id number] 07:48:007[facility] HermannCHEM SWDKY0145-65-53 07:48:005.79 [facility]annCHEM MADCA0060-61-46 07:48:0024[facility] HermannCHEM PANEL 2016-11-11 07:48:005.3[facility] HermannCHEM QZWCZ9560-98-27 07:48:08637Eoucwhds HermannCHEM UWPTK0082-48-37 07:48:23751Ulnsiyws HermannCHEM EKONC8402-08-65 07:48:0038[facility] HermannCHEM JZUSE2978-75-90 07:48:008.6[facility] HermannCHEM WQPAF6864-17-88 07:48:89328Bqrcuzvo HermannCHEM VSCLO5949-56-09 07:48:0020.3 Memorial PqikxrbPLVSFWOHZH2683-37-43 07:48:0015.4[facility] HermannHEMATOLOGY 2016-11-11 07:48:008.7Memorial PgbfpzmEFTCTVUSXQ9197-17-16 07:48:44197Qbnrequc XnneurgAGPVFKRUZL5938-31-55 07:48:0027.0[facility]orial UeyrfeeHDKXEJVPGQ7875-90-00 07:48:00 Test Item Value Reference Range Interpretation Comments MCH (test code = MCH) 32.1 pg 27.0-31.0 Memorial HjgrbreEGFGKRBMHR4686-99-40 07:48:0097.5[facility] HermannHEMATOLOGY 2016-11-11 07:48:0032.9[facility]orial LjnjjiqZQPITKJADN2833-98-48 07:48:006.4[facility]orial RifqjvxDPNORNJRYD5887-87-54 07:48:002.76[facility]orial JnakqmhKRXTARDWSK4986-09-15 07:48:008.9[facility] EogugfsOXYXNUOCNR9558-34-45 07:48:000.1[facility] [place] TXHMQLAVAM7320-60-22 07:48:000.9[facility] LjzwlcpTZRIGEWQFS2009-52-62 07:48:000.7 Memorial VxsapclACJWTLMEKI2430-82-25 07:48:0014.1[facility] HermannHEMATOLOGY 2016-11-11 07:48:001.9[facility]orial AtvwhrvRHMEWRFHST0990-67-10 07:48:0010.7[facility]orial HynbsesKCDYJTKYYE1022-41-29 07:48:004.7[facility]orial VhshnefHNRPDJFIGT1630-22-29 07:48:000.7[facility]orial TlayugeXFOKGWPQYR9589-75-81 07:48:0072.6[facility] HermannCHEM NITDB3265-69-49 09:12:003.9[facility] HermannCHEM ESUTC7194-00-98 09:12:002.6 Memorial CtehuppEEIJBFBEYCSM6474-56-18 09:12:03498Hjxkmpcl HermannELECTROLYTES 2016-11-10 09:12:008.6Memorial GmkgzecWZWBKGAQQKYV3087-53-59 09:12:004.8[facility]orial ZujeaibBSFLNDQMSZXP6042-13-91 09:12:16692Remwrtmx VjrkglkZSCXLWYKAHPG0406-01-62 09:12:0029[facility] FukxmkyZLBAATDFFCEC5104-17-82 09:12:000.7[facility] ATUUGAPJNBCV1374-53-63 09:12:006.0[facility]orial XsyxlkzSUXWPEAEGWZF2351-30-46 09:12:60076Ayqqpgci NmjbsfaRFWWQNTEBZZW6209-27-36 09:12:0014[facility] IYDGRAWPZZSH5441-15-93 09:12:0014Memorial TuzgmqzKWPJDBLRZDON4782-32-26 09:12:00 2.9Memorial DivxweyBQJWLNMBIMSJ4310-39-12 09:12:63410Abvqhulo [place] CCCUUSWUZEQF2728-47-66 09:12:004.87[facility]orial DmdlfrcDPEZSUGTWUTE6487-42-62 09:12:0028Memorial KxsiqjgBGCLJJUMEQCA9143-15-27 09:12:009[facility] JYNJXRWWPTAO3186-04-27 09:12:0014.8[facility]orial VovqeaqEZWHZNEJAIGK8899-51-25 09:12:000.9[facility] UgzavicJSTIICTXQOWK3227-20-34 09:12:003.1[facility] SYUNOXKSTCDT2527-56-59 09:12:006[facility] YwdwbiiHSFATOVRSM4438-01-81 09:12:006.1 Memorial XexwmojQFBOZMEUYA1297-77-83 09:12:0028.5[facility] HermannHEMATOLOGY 2016-11-10 09:12:0096.9Memorial NpdbbnzFQTSHWIZYJ3411-02-89 09:12:002.94Memorial XobamnoDWMTYALBQS9560-92-66 09:12:009.5Memorial DpoijaxTFDZBWRNRQ1231-05-49 09:12:0015.4[facility]orial XkuriprGTZQGLOQKK6419-61-36 09:12:52628Lrgqyegn [place] YGKODUJKRB7585-38-68 09:12:00 Test Item Value Reference Range Interpretation Comments MCH (test code = MCH) 32.1 pg 27.0-31.0 Memorial MsdcuqqMLTGTORCZB1334-60-49 09:12:0033.2[facility] HermannHEMATOLOGY 2016-11-10 09:12:008.6Memorial PvcvmbsCTVVGWDBBX8185-34-52 09:12:000.2Memorial RzaroicHMMJJSIXWH0716-58-69 09:12:001.2Memorial XbcfmbuCLZYFSEBJH6013-82-48 09:12:000.6[facility]orial DmdmjaoGCNXEGHZST4974-57-56 09:12:003.7[facility] [place] RFRVUHNQHV0072-11-38 09:12:004.1[facility]orial OoynbinBZLBDWDXWA4952-53-93 09:12:000.7 Memorial UzismvlKSFGHNESYX2010-23-85 09:12:009.3[facility] HermannHEMATOLOGY 2016-11-10 09:12:0019.5Memorial DajynspCFPTFQDAAT0509-61-60 09:12:0066.8Memorial VezwlsdGXPFDTOOXE4430-89-72 17:57:0011.6Memorial XrgtfpfBZCGMNPMYA8781-33-15 17:57:65173Lqxaygyh DqegohsKFLTFSLGCY7161-42-61 17:57:004.8[facility] ENUCAPBISS1454-30-43 17:57:0034.0Memorial CsdxdxzYJHZUWTKPP7967-09-17 17:57:00 137[facility]
[2020-07-01] MEDS ORDERED: FENTANYL CITR 100 MCG/2 ML ONE ×2 (11:14→12:37)
[2020-07-01 11:25] LABS: Absolute Lymphocytes (CBC) 0.9 K/uL (0.7-4.9); Basophils % 0.2 % (0-1.3); Hematocrit 26.1 % (36.0-45.0); MPV 7.9 fL (7.6-11.3); RBC Red Blood Cell Count 2.66 M/uL (3.86-4.86)
--- NOTE | 2020-07-01 11:41 | RAD REPORT ---
EXAM DESCRIPTION: CT - Spine Lumbar Wo Con - 07/01/2020 11:15 am CLINICAL HISTORY: Radiculopathy. PAIN COMPARISON: No comparisons TECHNIQUE: Axial noncontrast CT imaging of the lumbar spine was performed with coronal and sagittal re-formatted images. All CT scans are performed using dose optimization technique as appropriate and may include automated exposure control or mA/KV adjustment according to patient size. FINDINGS: Examination is limited by the patient positioning. The bones are demineralized. No acute lumbar spine fracture evident. There is significant skin thicke milan and edema noted in the lower back region. Soft tissue ulceration is present along the lower back with cortical irregularity involving the inferior aspect of the sacrum. The adjacent soft tissues patel perficial to the lower sacrum are thickened to 22 mm. This may indicate sacral osteomyelitis. No soft tissue gas is evident. Significant stool is retained throughout the colon. No intrapelvic abscess. IMPRESSION: Examination is quite limited due to patient positioning. Soft tissue thickening is seen along the lower back superficial to the sacrum with subtle demineraliz ation of the right aspect of the sacrum present. This is suspicious for sacral osteomyelitis. MRI sac rococcygeal region with contrast would be recommended for confirmation if clinically indicated.
[2020-07-01 11:49] LABS: Albumin 1.9 g/dL (3.4-5.0); Bilirubin Direct 0.2 mg/dL (0-0.2); Bilirubin Total 0.5 mg/dL (0.2-1.0); Potassium 4.9 mmol/L (3.5-5.1); Protein, Total 6.2 g/dL (6.4-8.2)
[2020-07-01 12:53] LABS: Blood Morphology Comment NOT SEEN (NOT SEEN); Platelet Estimate ADEQ
[2020-07-01 12:54] LABS: White Blood Cell Scan OK (OK)
[2020-07-01] MEDS ORDERED: LORazepam 2 MG/ML VIAL ONE (13:29)
[2020-07-01] MEDS ORDERED: VANCOMYCIN/NS 1 gm 1 GM/250 ML BAG IVPB ONE (14:00)
--- NOTE | 2020-07-01 15:16 | RAD REPORT ---
EXAM DESCRIPTION: MRI - Sacrum/Coccyx Wo Cont - 07/01/2020 3:01 pm CLINICAL HISTORY: r/o osteomyeltiis of the sacrum, pelvic pain, sacral wound COMPARISON: Spine Lumbar Wo Con dated 07/01/2020 TECHNIQUE: Multiplanar imaging of the sacrum and coccyx region performed using T1 weighted, T1 stir, T2 fat saturation and T2 sequencing. FINDINGS: Cortical disruption is present along the posterior margin of the sacrum coccyx junction. T here is hypointense T1 and hyperintense T2 signal. Hypointense and heterogeneous Robel hyperintense sig nal is present in the abutting soft tissues from the bony margin to the skin surface. No abscess or d rainable fluid collection. Findings are consistent with sacral osteomyelitis. The portion of involve bone is relatively limited to the immediate sacrum coccygeal junction. No presacral soft tissue thick ening. Imaged portion of the bowel in the pelvis shows no unexpected finding. Small amount of free fluid is present in the peritoneal cavity. No large mass or lymphadenopathy identifiable. The remaining visualized portions of the bony pelvis showed no aggressive or worrisome marrow pattern . No significant SI joint degenerative change present. No sacral ala fracture. Lower lumbar degenerat cristian changes are present. 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 No abscess or drainable fluid collection in the soft tissue wound posterior to the sacrum-coccyx.
--- NOTE | 2020-07-01 15:43 | ER ---
Nurse's Notes [facility] Name: Jens Hightower Age: 65 yrs Sex: Female : 1955 Arrival Date: 07/01/2020 Time: 10:48 Bed 15 Private MD: Diagnosis: Osteomyelitis of vertebra;Anemia, unspecified Presentation: 07/01 10:48 Chief complaint: EMS states: Toned out by pts for back pain x 2 weeks, pt has a jl7 sacral wound that is healing, the pain is 2 inches above sacral wound. Pt has dialysis M-W-F, will miss today due to back pain. Coronavirus screen: Client denies travel out of the [place] in the last 14 days. At this time, the client does not indicate any symptoms associated with coronavirus-19. Ebola Screen: No symptoms or risks identified at this time. Initial Sepsis Screen: Does the patient meet any 2 criteria? No. Patient's initial sepsis screen is negative. Does the patient have a suspected source of infection? No. Patient's initial sepsis screen is negative. Risk Assessment: Do you want to hurt yourself or someone else? Patient reports no desire to harm self or others. Onset of symptoms was June 14, 2020. Care prior to arrival: Medication(s) given: 50 mcg Fentanyl IM. Transition of care: patient was not received from another setting of care. 10:48 Method Of Arrival: EMS: [facility] [place] [id number] 10:48 Acuity: BRANDON 3 jl7 Triage Assessment: 11:00 General: Appears in no apparent distress. uncomfortable, Behavior is anxious, restless. jl7 Pain: Complains of pain in coccyx. Neuro: Level of Consciousness is awake, alert, obeys commands, Oriented to person, place, time. Cardiovascular: Patient's skin is warm and dry. Respiratory: Airway is patent Respiratory effort is even, unlabored, Respiratory pattern is regular, symmetrical. Derm: Skin is pink, warm \T\ dry. Wound noted healing sacral wound noted. Musculoskeletal: Tenderness present in coccyx. Historical: - Allergies: 10:57 PENICILLINS; jl7 - Home Meds: 10:57 losartan 50 mg Oral tab 1 tab 2 times per day [Active]; Cytomel 5 mcg Oral tab 1 tab jl7 twice a day [Active]; isosorbide mononitrate 60 mg oral Tb24 2 tabs [Active]; pravastatin 20 mg Oral tab 1 tab once daily [Active]; esomeprazole magnesium 40 mg Oral cpDR 1 cap once daily [Active]; Synthroid 75 mcg Oral tab 1 tab twice a day [Active]; novalog [Active]; Coreg 25 mg Oral tab 1 tab 2 times per day [Active]; biotin 2,500 mcg Oral cap 2 caps daily [Active]; Vitamin B-6 100 mg Oral tab daily [Active]; vit c 1000 mg AM [Active]; - PMHx: 10:57 chronic renal failure; COPD; Diabetes - IDDM; Dialysis; M-W-F; ESRD; Fibula Shaft jl7 Fracture; Hypertension; Thyroid problem; Tibial Shaft Fracture; - PSHx: 10:57 Mastectomy; CABG; jl7 - Immunization history:: Adult Immunizations unknown. - Social history:: Smoking status: unknown. Screenin:10 Abuse screen: Denies threats or abuse. Denies injuries from another. Nutritional jl7 screening: No deficits noted. Tuberculosis screening: No symptoms or risk factors identified. Fall Risk No fall in past 12 months (0 pts). No secondary diagnosis (0 pts). IV access (20 points). Ambulatory Aid- Gait- Normal/Bed Rest/Wheelchair (0 pts) Mental Status- Oriented to own ability (0 pts). Total Dhaliwal Fall Scale indicates No Risk (0-24 pts). Assessment: 11:13 General: see triage assessment. [facility] 11:14 Reassessment: Tosin Hightower, pt's , . [facility] 13:00 Reassessment: Patient appears in no apparent distress at this time. No changes from jl7 previously documented assessment. Patient and/or family updated on plan of care and expected duration. Pain level reassessed. 14:25 Reassessment: Patient appears in no apparent distress at this time. Patient and/or jl7 family updated on plan of care and expected duration. Pain level reassessed. pt returned from MRI, laying in bed, appears more comfortable at this time. 15:30 Reassessment: Patient appears in no apparent distress at this time. No changes from jl7 previously documented assessment. Patient and/or family updated on plan of care and expected duration. Pain level reassessed. 16:30 Reassessment: Patient appears in no apparent distress at this time. No changes from jl7 previously documented assessment. Patient and/or family updated on plan of care and expected duration. Pain level reassessed. 17:30 Reassessment: Patient appears in no apparent distress at this time. No changes from jl7 previously documented assessment. Patient and/or family updated on plan of care and expected duration. Pain level reassessed. 19:15 Reassessment: Updated pt's on POC, verbalized understanding. jl7 Vital Signs: 10:48 BP 140 / 48; Pulse 73; Resp 19; Temp 98.1; Pulse Ox 98% ; Pain 10/10; jl7 12:00 BP 122 / 46; Pulse 75; Resp 15; Pulse Ox 95% ; jl7 13:00 BP 125 / 45; Pulse 79; Resp 19; Pulse Ox 97% ; jl7 14:29 BP 131 / 54; Pulse 84; Resp 15; Pulse Ox 95% ; jl7 15:34 BP 125 / 49; Pulse 86; Resp 16; Pulse Ox 95% ; jl7 17:30 BP 125 / 59; Pulse 85; Resp 19; Pulse Ox 95% ; jl7 ED Course: 10:48 Patient arrived in ED. tw4 10:48 Nettie James, JAYCEE is Primary Nurse. jl7 10:48 Stephen Lazo MD is Attending Physician. tw4 10:53 Triage completed. jl7 11:08 Arm band placed on right wrist. jl7 11:10 Patient has correct armband on for positive identification. Bed in low position. Call jl7 light in reach. Side rails up X2. Pulse ox on. NIBP on. Warm blanket given. 11:10 Initial lab(s) drawn, by ia, sent to lab. Inserted saline lock: 20 gauge in left wrist, jl7 using aseptic technique. Blood collected. 12:04 Hepatic Function Sent. sv 12:04 CBC with Diff Sent. sv 12:04 Basic Metabolic Panel Sent. sv 12:04 CT Lumbar Spine Wo Con Sent. sv 15:41 Khari Wallace MD is Hospitalizing Provider. tw4 17:29 COVID swab sent to lab. jl7 18:28 MRI Lumbar Spine wo Con Sent. sv 18:28 MRI Lumbar Spine wo Con Sent. sv 19:13 CORONAVIRUS Sent. sv 19:13 COVID-19 Sent. sv 19:39 No provider procedures requiring assistance completed. Patient admitted, IV remains in jl7 place. intact, No redness/swelling at site. Administered Medications: 11:06 Drug: fentaNYL (PF) 50 mcg Route: IVP; Site: left wrist; jl7 11:30 Follow up: Response: No adverse reaction; Pain is decreased jl7 12:26 Drug: fentaNYL (PF) 50 mcg Route: IVP; Site: left wrist; jl7 12:45 Follow up: Response: No adverse reaction; Pain is unchanged, physician notified jl7 13:25 Drug: Ativan 2 mg Route: IVP; Site: left wrist; jl7 14:00 Follow up: Response: No adverse reaction; Marked relief of symptoms jl7 14:10 Drug: vancoMYCIN 1 grams Route: IVPB; Infused Over: 2 hrs; Site: left wrist; jl7 16:10 Follow up: Response: No adverse reaction; IV Status: Completed infusion jl7 Outcome: 15:43 Decision to Hospitalize by Provider. tw4 19:39 Admitted to Med/surg accompanied by tech, via stretcher, room 221, with chart, Report jl7 called to JAYCEE Caro 19:39 Condition: stable 19:39 Discharge instructions given to patient, family, Instructed on the need for admit, Demonstrated understanding of instructions. 19:56 Patient left the ED. lp1 Signatures: Leyla Chamorro RN RN sv Yoselyn Lala RN RN lp1 Nettie James RN RN jl7 Stephen Lazo MD MD tw4
--- NOTE | 2020-07-01 15:43 | EDPHYS ---
Physician Documentation [facility] Name: Jens Hightower Age: 65 yrs Sex: Female : 1955 Arrival Date: 07/01/2020 Time: 10:48 Bed 15 Private MD: ED Physician Stephen Lazo HPI: 07/01 18:25 This 65 yrs old Female presents to ER via EMS with complaints of back pain. tw4 18:25 The patient presents with pain that is acute. The patient presents with pain that is tw4 acute, with no known mechanism of injury. The symptoms are located in the coccyx area. Onset: The symptoms/episode began/occurred yesterday. The pain does not radiate. Associated signs and symptoms: The patient has no apparent associated signs or symptoms. The problem was sustained from unknown cause. Modifying factors: The patient symptoms are alleviated by nothing, the patient symptoms are aggravated by movement. The patient has not experienced similar symptoms in the past. Historical: - Allergies: 10:57 PENICILLINS; jl7 - Home Meds: 10:57 losartan 50 mg Oral tab 1 tab 2 times per day [Active]; Cytomel 5 mcg Oral tab 1 tab jl7 twice a day [Active]; isosorbide mononitrate 60 mg oral Tb24 2 tabs [Active]; pravastatin 20 mg Oral tab 1 tab once daily [Active]; esomeprazole magnesium 40 mg Oral cpDR 1 cap once daily [Active]; Synthroid 75 mcg Oral tab 1 tab twice a day [Active]; novalog [Active]; Coreg 25 mg Oral tab 1 tab 2 times per day [Active]; biotin 2,500 mcg Oral cap 2 caps daily [Active]; Vitamin B-6 100 mg Oral tab daily [Active]; vit c 1000 mg AM [Active]; - PMHx: 10:57 chronic renal failure; COPD; Diabetes - IDDM; Dialysis; M-W-F; ESRD; Fibula Shaft jl7 Fracture; Hypertension; Thyroid problem; Tibial Shaft Fracture; - PSHx: 10:57 Mastectomy; CABG; jl7 - Immunization history:: Adult Immunizations unknown. - Social history:: Smoking status: unknown. ROS: 18:25 Constitutional: Negative for fever, chills, and weight loss, Eyes: Negative for injury, tw4 pain, redness, and discharge, Cardiovascular: Negative for chest pain, palpitations, and edema, Respiratory: Negative for shortness of breath, cough, wheezing, and pleuritic chest pain, Abdomen/GI: Negative for abdominal pain, nausea, vomiting, diarrhea, and constipation, MS/Extremity: Negative for injury and deformity, Skin: Negative for injury, rash, and discoloration. 18:25 Back: Positive for decreased range of motion, pain at rest, pain with movement, Negative for injury or acute deformity, radiated pain. Exam: 18:25 Constitutional: This is a well developed, well nourished patient who is awake, alert, tw4 and in no acute distress. Head/Face: Normocephalic, atraumatic. Chest/axilla: Normal chest wall appearance and motion. Nontender with no deformity. No lesions are appreciated. Cardiovascular: Regular rate and rhythm with a normal S1 and S2. No gallops, murmurs, or rubs. Normal PMI, no JVD. No pulse deficits. Respiratory: Lungs have equal breath sounds bilaterally, clear to auscultation and percussion. No rales, rhonchi or wheezes noted. No increased work of breathing, no retractions or nasal flaring. Abdomen/GI: Soft, non-tender, with normal bowel sounds. No distension or tympany. No guarding or rebound. No evidence of tenderness throughout. Skin: Warm, dry with normal turgor. Normal color with no rashes, no lesions, and no evidence of cellulitis. MS/ Extremity: Pulses equal, no cyanosis. Neurovascular intact. Full, normal range of motion. Neuro: Awake and alert, GCS 15, oriented to person, place, time, and situation. Cranial nerves II-XII grossly intact. Motor strength 5/5 in all extremities. Sensory grossly intact. Cerebellar exam normal. Normal gait. 18:25 Back: pain, is absent, ROM is normal, normal spinal alignment noted. Vital Signs: 10:48 BP 140 / 48; Pulse 73; Resp 19; Temp 98.1; Pulse Ox 98% ; Pain 10/10; jl7 12:00 BP 122 / 46; Pulse 75; Resp 15; Pulse Ox 95% ; jl7 13:00 BP 125 / 45; Pulse 79; Resp 19; Pulse Ox 97% ; jl7 14:29 BP 131 / 54; Pulse 84; Resp 15; Pulse Ox 95% ; jl7 15:34 BP 125 / 49; Pulse 86; Resp 16; Pulse Ox 95% ; jl7 17:30 BP 125 / 59; Pulse 85; Resp 19; Pulse Ox 95% ; jl7 MDM: 11:01 Patient medically screened. tw4 18:25 Differential diagnosis: Cholelithiasis Inflammatory Bowel Disease Ligament Injury tw4 Osteoarthritis Pyelonephritis Renal Infarction sprain, Ureterolithiasis. Data reviewed: vital signs, nurses notes. Data interpreted: Pulse oximetry: Interpretation: normal. Counseling: I had a detailed discussion with the patient and/or guardian regarding: the historical points, exam findings, and any diagnostic results supporting the discharge/admit diagnosis. Special discussion: I discussed with the patient/guardian in detail that at this point there is no indication for admission to the hospital. It is understood, however, that if the symptoms persist or worsen the patient needs to return immediately for re-evaluation. 07/01 10:49 Order name: Basic Metabolic Panel [facility] 07/01 10:49 Order name: CBC with Diff 07/01 10:49 Order name: Hepatic Function 07/01 11:44 Order name: CBC with Automated Diff; Complete Time: 16:04 EDCT 07/01 16:04 Interpretation: Normal except: WBC 15.6; RBC 2.66; HGB 8.2; HCT 26.1; MCHC 31.4; ANDREZ% tw4 87.9; LYM% 6.0; NEUT A 13.7. 07/01 11:50 Order name: Basic Metabolic Panel; Complete Time: 12:19 EDCT 07/01 12:19 Interpretation: Normal except: GLUC 121; BUN 40; CRE 4.74; GFR 9. 07/01 11:50 Order name: Liver (Hepatic) Function; Complete Time: 12:19 EDMS 07/01 12:20 Interpretation: Normal except: ALT 11; ALK 166; TP 6.2; ALB 1.9; GLOB 4.3; A/G 0.4. 07/01 10:49 Order name: CT Lumbar Spine Wo Con 07/01 11:41 Order name: CT; Complete Time: 11:42 EDMS 07/01 11:44 Order name: MRI Lumbar Spine wo Con 07/01 12:55 Order name: CBC Smear Scan; Complete Time: 16:04 EDMS 07/01 15:17 Order name: MRI EDMS 07/01 17:06 Order name: COVID-19 jl7 07/01 18:11 Order name: CORONAVIRUS EDCT 07/01 18:57 Order name: SARS-COV-2 RT PCR EDMS 07/01 10:49 Order name: IV Saline Lock; Complete Time: 11:05 tw4 07/01 10:49 Order name: Labs collected and sent; Complete Time: 11:05 tw4 07/01 16:41 Order name: MRI Lumbar Spine wo Con tw4 07/01 18:58 Order name: MRI EDMS Administered Medications: 11:06 Drug: fentaNYL (PF) 50 mcg Route: IVP; Site: left wrist; jl7 11:30 Follow up: Response: No adverse reaction; Pain is decreased jl7 12:26 Drug: fentaNYL (PF) 50 mcg Route: IVP; Site: left wrist; jl7 12:45 Follow up: Response: No adverse reaction; Pain is unchanged, physician notified jl7 13:25 Drug: Ativan 2 mg Route: IVP; Site: left wrist; jl7 14:00 Follow up: Response: No adverse reaction; Marked relief of symptoms jl7 14:10 Drug: vancoMYCIN 1 grams Route: IVPB; Infused Over: 2 hrs; Site: left wrist; jl7 16:10 Follow up: Response: No adverse reaction; IV Status: Completed infusion jl7 Disposition: 07/01/20 15:43 Hospitalization ordered by Khari Wallace for Inpatient Admission. Preliminary diagnosis are Osteomyelitis of vertebra, Anemia, unspecified. - Bed requested for Telemetry/MedSurg (Inpatient). - Status is Inpatient Admission. lp1 - Condition is Stable. - Problem is new. - Symptoms are unchanged. Signatures: Dispatcher [employer] [facility] Yoselyn Lala RN RN lp1 Nevaeh Feliz RN Nettie Woods RN RN jl7 Stephen Lazo MD MD tw4 Corrections: (The following items were deleted from the chart) 16:05 15:43 Hospitalization Ordered by Khari Wallace MD for Inpatient Admission. Preliminary tw4 diagnosis is Osteomyelitis of vertebra. Bed requested for Telemetry/MedSurg (Inpatient). Status is Inpatient Admission. Condition is Stable. Problem is new. Symptoms are unchanged. tw4 19:06 16:05 07/01/2020 15:43 Hospitalization Ordered by Khari Wallace MD for Inpatient cg Admission. Preliminary diagnosis is Osteomyelitis of vertebra; Anemia, unspecified. Bed requested for Telemetry/MedSurg (Inpatient). Status is Inpatient Admission. Condition is Stable. Problem is new. Symptoms are unchanged. tw4 19:07 19:06 07/01/2020 15:43 Hospitalization Ordered by Khari Wallace MD for Inpatient cg Admission. Preliminary diagnosis is Osteomyelitis of vertebra; Anemia, unspecified. Bed requested for [facility] ER HOLD. Status is Inpatient Admission. Condition is Stable. Problem is new. Symptoms are unchanged. 19:23 19:07 07/01/2020 15:43 Hospitalization Ordered by Khari Wallace MD for Inpatient cg Admission. Preliminary diagnosis is Osteomyelitis of vertebra; Anemia, unspecified. Bed requested for Telemetry/MedSurg (Inpatient). Status is Inpatient Admission. Condition is Stable. Problem is new. Symptoms are unchanged. 19:56 19:23 07/01/2020 15:43 Hospitalization Ordered by Khari Wallace MD for Inpatient lp1 Admission. Preliminary diagnosis is Osteomyelitis of vertebra; Anemia, unspecified. Bed requested for Telemetry/MedSurg (Inpatient). Status is Inpatient Admission. Condition is Stable. Problem is new. Symptoms are unchanged.
--- NOTE | 2020-07-01 17:08 | P.HP ---
Certification for Inpatient Patient admitted to: Inpatient Practitioner: I am a practitioner with admitting privileges, knowledge of patient current condition, hospital course, and medical plan of care. Services: Services provided to patient in accordance with Admission requirements found in Title 42 Section 412.3 of the Code of Federal Regulations Patient History Date of Service: 07/01/20 Reason for admission: sacrum osteomyelitis, intractable pain History of Present Illness: HPI limited due to patient's AMS and refusal to answer questions. HPI obtained from ED provider and . Patient began with severe lower buttock/upper thigh pain 2 days ago, which has not allowed her to walk or move around as well. The pain persisted so she was brought to the ED. She was in severe pain with occasional screaming per ED physician. The patient was only intermittently answering questions the for unknown reason and was refusing to answer certain questions. She eventually pointed to her lower back as the area for pain. Workup revealed some spinal stenosis and sacral osteomyelitis. Labs notable for leukocytosis of 15.6, hemoglobin 8.2, creatinine 4.74, COVID negative. Allergies Penicillins Allergy (Verified 08/30/17 10:31) Hives Home Medications: Ascorbic Acid [Vitamin C*] 1,000 mg PO DAILY 09/30/14 B Complex with Vitamin C [Super B Complex with C] 1 cap PO DAILY 09/30/14 Isosorbide Mononitrate [Isosorbide Mononitrate ER] 120 mg PO BEDTIME 09/30/14 Levothyroxine [Synthroid*] 150 mcg PO [id number] 09/30/14 Nifedipine [Procardia Xl] 90 mg PO BID 09/30/14 Pravastatin Sodium [Pravachol] 20 mg PO BEDTIME 09/30/14 carvediloL [Coreg*] 25 mg PO BID 09/30/14 Esomeprazole Magnesium 40 mg PO DAILY 06/14/17 Liothyronine Sodium [Cytomel] 5 mcg PO BID 06/14/17 Fish Oil/Dha/Epa [Fish Oil 1,200 mg Fish Oil] 1 each PO DAILY 06/26/18 Ferric Citrate [Auryxia] 210 mg PO QID 04/05/20 Pyridoxine HCl (Vitamin B6) [Vitamin B6] 100 mg PO DAILY 04/05/20 Biotin 5 mg PO DAILY 05/03/20 Cholecalciferol (Vitamin D3) [Vitamin D3] 5,000 unit PO DAILY 05/03/20 Folic Acid/Vit B Complex and C [Judy-Karl Tablet] 0.8 mg PO DAILY 05/03/20 Hydralazine HCl [Apresoline] 100 mg PO BID 05/03/20 Losartan Potassium [Cozaar] 50 mg PO DAILY 05/03/20 - Past Medical/Surgical History Diabetic: Yes -: dm -: htn -: End-stage renal disease on hemodialysis -: Hypothyroidism -: Type 1 DM on insulin pump -: kidney transplant -: cataract sx -: breast augmentation - Family History Family History: Reviewed- Non-Contributory (Unable to obtain) - Social History Smoking Status: Unknown if ever smoked Alcohol use: No CD- Drugs: No Caffeine use: Yes Review of Systems is unable to be obtained Physical Examination - Physical Exam General: Unresponsive HEENT: Sclerae nonicteric Respiratory: Diminished (at bases bilaterally), Other (on RA) Cardiovascular: Regular rate/rhythm Gastrointestinal: Soft and benign, Non-distended Musculoskeletal: No tenderness Integumentary: Other (sacral decubitus ulcer, with whitish-brown drainage) Neurological: Other (lethargic after ativan, minimal responsiveness, refusing to answer, moaning in pain) - Studies Laboratory Data (last 24 hrs) 07/01/20 11:06: WBC 15.6 H, Hgb 8.2 L, Hct 26.1 L, Plt Count 272 07/01/20 11:06: Sodium 138, Potassium 4.9, BUN 40 H, Creatinine 4.74 H, Glucose 121 H, Total Bilirubin 0.5, AST 33, ALT 11 L, Alkaline Phosphatase 166 H Assessment and Plan - Advance Directives Does patient have a Living Will: No Does patient have a Durable POA for Healthcare: No Physician Review Additional Text: Sacral decubitus ulcer Sacral osteomyelitis Intractable pain ESRD on HD COPD Insulin-dependent diabetes. Hypertension -sacral decubitus ulcer with slight tract going inwards with some whitish-brown discharge -mild tenderness to palpation around ulcer -patient with severe pain/moaning with either leg hip flexion, patient unable to localize pain for as due to her lethargy /refusal to answer -reviewed MRIs, discussed with general surgery - unclear if pain is due to osteomyelitis or some radicular component -reviewed imaging over the phone briefly with neurology who recommended a lumbar MRI to rule out any cauda equina involvement -lumbar MRI notable for some foraminal stenosis, no cauda equina involvement -pain can be some component of radicular pain. Will treat with gabapentin -Dilaudid for pain -vanc & meropenem for sacral osteo - pt with pcn allergy -general surgrey and nephrology consulted -obtain home medications and restart as appropriate -SSI, accuchecks VTE: lovenox Code: Full Dispo: hospitalization >2 days Time Spent Managing Pts Care (In Minutes): 75
--- NOTE | 2020-07-01 18:58 | RAD REPORT ---
EXAM DESCRIPTION: MRI - Lumbar Spine Wo Con - 07/01/2020 6:08 pm CLINICAL HISTORY: PAIN COMPARISON: Spine Lumbar Wo Con dated 07/01/2020 TECHNIQUE: Sagittal T1-weighted, T2-weighted and T2-STIR weighted sequences were obtained. Axial T1 -weighted and heavily T2-weighted sequenceswere obtained through the lumbar disc levels. FINDINGS: Exam has motion degradation limitations. All lumbar vertebrae show biconcave central height loss. Peripheral wall height is maintained. Scatte red fatty marrow degenerative changes are present. Slight wedging of the T12 body is present without abnormal marrow signal characteristics. Anterior subluxation of L5 on S1 measuring 5 mm is present du e to advanced facet joint degenerative change. Alignment is otherwise unremarkable. No paraspinal mas ses. Conus terminates at the L2 level. Motion limits assessment ; however, no clumping or thickening of th e cauda equina identifiable. T11-12 level: Disc bulge and endplate spurring changes are present without contact of the distal cord . T12-L1 level: Disc is desiccated. L1-2 level: Disc is desiccated with slight loss in disc height. Minimal disc bulge is present. Centra l canal is 11 mm. Facet degenerative changes mild. L2-3 level: Disc is desiccated with slight loss in disc height. Minimal disc bulge is present. [place]lin e canal is 11 mm. No significant foraminal stenosis. L3-4 level: Disc is thinned and desiccated. Prominent circumferential bulging of disc material is pre sent in the central canal and each exit foramen. Ligamentous thickening and facet degenerative change s are present. Central canal is stenotic to 7 mm. Foraminal stenosis is present but perineural fat st ill surrounds these exiting nerve root. L4-5 level: Disc is desiccated without loss in height. No herniation or significant disc bulge. Ligam entous thickening changes are present. Central canal is 8 mm. Mild left foraminal stenosis present. L5-S1 level: There is partial collapse the superior endplate S1 with loss in height. No mild marrow e kecia or marrow replacing process. Bulging of disc material is created by a the subluxation. Moderate severity bilateral foraminal stenosis is present. No central spinal stenosis. Advanced facet degenera tive change present IMPRESSION: Degenerative change present throughout the lumbar vertebrae in the S1 body. No active ma rrow edema or marrow replacing process. Prominent L3-4 spondylosis changes causing spinal stenosis to 7 mm. No significant foraminal stenosis . L4-5 spondylosis with central stenosis to 8 mm. Left foraminal stenosis is mild. L5 subluxation on S1 due to advanced facet degenerative change. No central spinal stenosis. Patient h as moderate severity bilateral foraminal stenosis. Conus terminates at the L2 level. Although limited by motion, no clumping or thickening of the cauda equina. No abnormal distal cord or nerve root signal abnormality.
[2020-07-01] MEDS ORDERED: VANCOMYCIN 1.25 GM in NA CHLORIDE 0.9% 250 ML IVPB SCH (19:57)
[2020-07-01] MEDS ORDERED: Meropenem 1000 MG/VIAL IV SCH (19:57)
[2020-07-01] MEDS: INSULIN -REGULAR HUMAN 50 UNIT/0.5 ML ML SQ SCH (21:00)
[2020-07-01] MEDS: GABAPENTIN 300 MG CAP PO SCH ×2 (21:00→21:04)
[2020-07-01] MEDS: Meropenem 1,000 MG in NA CHLORIDE 0.9% 100 ML IV SCH (21:00)
[2020-07-01] MEDS ORDERED: Meropenem 1,000 MG in NA CHLORIDE 0.9% 100 ML IV ONE (21:00)
[2020-07-01] MEDS: HYDROMORPHONE HCL 1 MG/ML INJ IV PRN (21:03)
[2020-07-01] MEDS ORDERED: VANCOMYCIN 500 MG in NA CHLORIDE 0.9% 100 ML IVPB ONE (21:45)
--- NOTE | 2020-07-01 22:02 | P.CNS ---
Date of Consult: 07/01/20 Reason for Consult: ESRD Requesting Physician: Khari Wallace Chief Complaint: sacrum osteomyelitis, intractable pain History of Present Illness: HPI limited due to patient's AMS and refusal to answer questions. HPI obtained from ED provider and . Patient began with severe lower buttock/upper thigh pain 2 days ago, which has not allowed her to walk or move around as well. The pain persisted so she was brought to the ED. She was in severe pain with occasional screaming per ED physician. The patient was only intermittently answering questions the for unknown reason and was refusing to answer certain questions. She eventually pointed to her lower back as the area for pain. Workup revealed some spinal stenosis and sacral osteomyelitis. 18:25 This 65 yrs old Female presents to ER via EMS with complaints of back pain. tw4 18:25 The patient presents with pain that is acute. The patient presents with pain that is tw4 acute, with no known mechanism of injury. The symptoms are located in the coccyx area. Onset: The symptoms/episode began/occurred yesterday. The pain does not radiate. Associated signs and symptoms: The patient has no apparent associated signs or symptoms. The problem was sustained from unknown cause. Modifying factors: The patient symptoms are alleviated by nothing, the patient symptoms are aggravated by movement. The patient has not experienced similar symptoms in the past. Allergies Penicillins Allergy (Verified 08/30/17 10:31) Hives Home medications list reviewed: Yes Home Medications: Ascorbic Acid [Vitamin C*] 1,000 mg PO DAILY 09/30/14 Isosorbide Mononitrate [Isosorbide Mononitrate ER] 120 mg PO BEDTIME 09/30/14 Levothyroxine [Synthroid*] 0.075 mcg PO BID 09/30/14 Pravastatin Sodium [Pravachol] 20 mg PO BEDTIME 09/30/14 carvediloL [Coreg*] 25 mg PO BID 09/30/14 Esomeprazole Magnesium 40 mg PO DAILY 06/14/17 Liothyronine Sodium [Cytomel] 5 mcg PO BID 06/14/17 Losartan Potassium [Cozaar] 50 mg PO DAILY 05/03/20 Pyridoxine [Vitamin B-6*] 100 mg PO DAILY 07/02/20 - Past Medical/Surgical History Diabetic: Yes -: dm -: htn -: End-stage renal disease on hemodialysis -: Hypothyroidism -: Type 1 DM on insulin pump -: kidney transplant -: cataract sx -: breast augmentation - Family History Father Medical History: Heart disease - Social History Smoking Status: Unknown if ever smoked Alcohol use: No CD- Drugs: No Caffeine use: Yes Review of Systems 10-point ROS is otherwise unremarkable General: Weakness, Malaise Musculoskeletal: Back Pain Neurological: Weakness Physical Examination Temp Pulse Resp BP Pulse Ox 99.9 F 89 20 113/56 L 91 07/01/20 20:00 07/01/20 20:00 07/01/20 21:03 07/01/20 20:00 07/01/20 21:03 General: Oriented x3, Cooperative, Moderate distress HEENT: Atraumatic Neck: Supple Respiratory: Clear to auscultation bilaterally Cardiovascular: Regular rate/rhythm, Edema Gastrointestinal: Soft and benign, Non-distended Musculoskeletal: No clubbing, No contractures, Tenderness Integumentary: No rashes, No cyanosis Neurological: Normal speech Laboratory Data (last 24 hrs) 07/01/20 11:06: WBC 15.6 H, Hgb 8.2 L, Hct 26.1 L, Plt Count 272 07/01/20 11:06: Sodium 138, Potassium 4.9, BUN 40 H, Creatinine 4.74 H, Glucose 121 H, Total Bilirubin 0.5, AST 33, ALT 11 L, Alkaline Phosphatase 166 H Imagings Data: EXAM DESCRIPTION: MRI - Lumbar Spine [facility] - 07/01/2020 6:08 pm CLINICAL HISTORY: PAIN COMPARISON: Spine Lumbar [facility] dated 07/01/2020 TECHNIQUE: Sagittal T1-weighted, T2-weighted and T2-STIR weighted sequences were obtained. Axial T1-weighted and heavily T2-weighted sequenceswere obtained through the lumbar disc levels. FINDINGS: Exam has motion degradation limitations. All lumbar vertebrae show biconcave central height loss. Peripheral wall height is maintained. Scattered fatty marrow degenerative changes are present. Slight wedging of the T12 body is present without abnormal marrow signal characteristics. Anterior subluxation of L5 on S1 measuring 5 mm is present due to advanced facet joint degenerative change. Alignment is otherwise unremarkable. No paraspinal masses. Conus terminates at the L2 level. Motion limits assessment ; however, no clumping or thickening of the cauda equina identifiable. T11-12 level: Disc bulge and endplate spurring changes are present without contact of the distal cord. T12-L1 level: Disc is desiccated. L1-2 level: Disc is desiccated with slight loss in disc height. Minimal disc bulge is present. Central canal is 11 mm. Facet degenerative changes mild. L2-3 level: Disc is desiccated with slight loss in disc height. Minimal disc bulge is present. Midline canal is 11 mm. No significant foraminal stenosis. L3-4 level: Disc is thinned and desiccated. Prominent circumferential bulging of disc material is present in the central canal and each exit foramen. Ligamentous thickening and facet degenerative changes are present. Central canal is stenotic to 7 mm. Foraminal stenosis is present but perineural fat still surrounds these exiting nerve root. L4-5 level: Disc is desiccated without loss in height. No herniation or significant disc bulge. Ligamentous thickening changes are present. Central canal is 8 mm. Mild left foraminal stenosis present. L5-S1 level: There is partial collapse the superior endplate S1 with loss in height. No mild marrow edema or marrow replacing process. Bulging of disc material is created by a the subluxation. Moderate severity bilateral foraminal stenosis is present. No central spinal stenosis. Advanced facet degenerative change present IMPRESSION: Degenerative change present throughout the lumbar vertebrae in the S1 body. No active marrow edema or marrow replacing process. Conclusions/Impression: A/P: Continue the current POC and Medications other than the changes listed. AM Labs PRN. Recommend daily weight. Please see the orders for complete details. ESRD on HD MWF -Acute HD tomorrow HTN with CKD/ CHF -Hold Coreg and Losartan at this time Diastolic CHF, chronic -Oral fluid restriction -HD with UF ordered DM I with CKD & Polyneuropathy -Continue insulin pump -RISS Severe Malnutrition -Encourage nutrition/ Renal diet -Give IV Albumin with HD Anemia in CKD -Give Retacrit TAWNYA/ Secondary HyperPTH -Start Renvela Sacral Osteomyelitis -Continue Meropenem and Vancomycin -Follow up with ID Case reviewed with Dr. Wallace and Dr. Lazo
[2020-07-01] MEDS ORDERED: VANCOMYCIN 500 MG/VIAL ONE (22:16)
[2020-07-01] MEDS ORDERED: NA CHLORIDE 0.9% 100 ML ONE (22:16)
[2020-07-01] MEDS ORDERED: Meropenem 1 GM/100 ML BAG ONE (22:34)
[2020-07-01] MEDS ORDERED: ACETAMINOPHEN 500 MG TAB PO PRN (23:27)
[2020-07-02 04:45] VITALS: BMI 20.1
[2020-07-02 06:02] LABS: Absolute Lymphocytes (CBC) 0.7 K/uL (0.7-4.9); Basophils % 0.1 % (0-1.3); Hematocrit 22.9 % (36.0-45.0); Lymphocytes % 4.2 % (15.3-44.8); MPV 8.4 fL (7.6-11.3); RBC Red Blood Cell Count 2.31 M/uL (3.86-4.86)
[2020-07-02] MEDS: INSULIN -REGULAR HUMAN 50 UNIT/0.5 ML ML SQ SCH ×4 (06:48→21:00)
[2020-07-02] MEDS ORDERED: NA CHLORIDE 0.9% 250 ML IV SCH (07:00)
[2020-07-02] MEDS ORDERED: MANNITOL 25% 12.5 GM/50 ML VIAL IV PRN (07:29)
[2020-07-02] MEDS ORDERED: NA CHLORIDE 0.9% 1,000 ML IV PRN (07:29)
[2020-07-02] MEDS ORDERED: EPOETIN ALFA-EPBX 10,000 UNIT/ML VIAL SQ ONE (07:32)
[2020-07-02] MEDS: HYDROMORPHONE HCL 1 MG/ML INJ IV PRN ×4 (07:43→21:40)
[2020-07-02] MEDS: GABAPENTIN 300 MG CAP PO SCH ×2 (07:43→08:01)
[2020-07-02 07:51] LABS: Albumin 1.7 g/dL (3.4-5.0); Bilirubin Total 0.7 mg/dL (0.2-1.0); Magnesium 2.5 mg/dL (1.8-2.4); Phosphorus 4.9 mg/dL (2.5-4.9)
[2020-07-02 07:54] LABS: Potassium 5.8 mmol/L (3.5-5.1)
[2020-07-02] MEDS ORDERED: ALBUMIN HUMAN 25% 50 ML IV SCH (08:00)
[2020-07-02] MEDS: DOCUSATE NA 100 MG CAP PO SCH ×2 (08:00→20:12)
[2020-07-02] MEDS: SEVELAMER CARBONATE 800 MG TABLET PO SCH ×3 (08:00→16:19)
[2020-07-02] MEDS: COENZYME Q10- 200 MG CAP PO SCH (08:00)
[2020-07-02] MEDS: MULTIVITAMINS,THERAPEUT 1 TAB PO SCH (08:00)
[2020-07-02] MEDS: VITAMIN D 5,000 UNIT CAP PO SCH (08:01)
[2020-07-02] MEDS: CALCITROL 0.25 MCG CAP PO SCH (08:01)
[2020-07-02] MEDS ORDERED: COLLAGENASE 30 GM OINTMENT TOP SCH (09:00)
--- NOTE | 2020-07-02 10:36 | CON ---
Date of Consultation: 07/01/2020 Reason For Consultation: Back pain, posterior thigh pain, sacral decubitus. History Of Present Illness: Patient is a 65-year-old female, who I have been following in the wound healing center and last saw her last Saturday with a sacral decubitus that was healing well. However couple of days later her called my office stating that she was having back pain going down to her posterior thigh, advised her this is a radiculopathy may be related to her back issues, to emre w up with her PCP; however pain persisted and became worse and she came to the emergency room yesterd samara, had a back pain workup and was admitted and I was consulted. She currently has been just medicat ed with Dilaudid and is slow to respond. She is in a sort of position on the right-side. Any attempted movement, she screams but she does not localize where her pain is. When she was a lit tle bit more awake, her states that she was complaining of pain in the posterior thigh and bu ttocks region as well as the mid lower back. No sore throat, runny nose, cough, headaches, or dizzin ess. No chest pain. No fever or chills. Review of Systems: Otherwise unremarkable. Past Medical History: Reviewed and include diabetes, hypertension, end-stage renal disease, hypothyr oidism. Past Surgical History: Kidney transplant, cataract surgery, breast augmentation. Allergies: INCLUDE PENICILLIN. Social History: The patient never smoked and does not drink. Family History: Noncontributory. Physical Examination: Vital Signs: Stable. She is currently afebrile. She is awake, alert, and oriented x1. Head and Neck: Cranial nerves 2 through 12 are grossly within normal limits. No neck masses. No JV D. Throat clear. Neck supple. Chest: Clear. Heart: Sounds S1, S2. Abdomen: Soft. Extremity: Patient is in a semi contracted position. Any touching and movement causes pain, otherwi se not localized. Examination of the sacral decubitus reveals it to be minimal erythema surrounding it. There is minimal drainage and size dominguez it is not significantly changed from Saturday, it is appr oximately 3 x 3 cm. Diagnostic Data: Her lumbar spine MRI reviewed in detail. Impression; degenerative changes present throughout the lumbar vertebral in the S1 body. No active marrow edema or marrow replacing process. There is L5 subluxation on S1 due to degenerative disease. There is no central spinal stenosis. Patient does have however moderate severe bilateral foraminal stenosis. Sacrum coccyx MRI reviewed a s well which is sacral osteomyelitis of the sacrococcygeal junction. No other significant finding. Her white count is 17.5, H and H is 7.4 and 22.9 with a left shift. Chemistry reviewed. Procalciton in 3.06 and COVID is negative. Assessment: Back pain. Thigh pain. Radiculopathy. Sacral decubitus osteomyelitis. Recommendations: At this time I recommend a neurology evaluation on the patient to see if the forami nal stenosis are the etiology of her pain. I believe they are contributing definitely. Thus far as sacral decubitus is concern, at this time patient is stabilized with her pain and IV antibiotics have been started, vancomycin and meropenem. We will check the cultures and adjust antibiotics according ly. Wound care has been ordered. We will follow this patient. If the patient needs debridement, we will schedule that in the near future. Plan of care discussed in detail with Dr. Wallace. /MODL Voice ID: [id number] Report ID: [id number]
--- NOTE | 2020-07-02 15:06 | P.PN ---
Subjective Date of Service: 07/02/20 Chief Complaint: sacrum osteomyelitis, intractable pain patient seen /examined in dialysis suite. has tolerated dialysis well. see dialysis notes from today. patient with sacral pain/infection. on antibiotics. overall condition looks frail/guarded. well continue dialysis support. bp stable. next dialysis planned for saturday. Physical Examination - Vital Signs Temperature: 98.8 F Blood Pressure: 158/68 Pulse: 79 Respirations: 20 Pulse Ox (%): 97 Assessment And Plan Physician Review Additional Text: Sacral decubitus ulcer Sacral osteomyelitis Intractable pain ESRD on HD COPD Insulin-dependent diabetes. Hypertension -sacral decubitus ulcer with slight tract going inwards with some whitish-brown discharge -mild tenderness to palpation around ulcer -patient with severe pain/moaning with either leg hip flexion, patient unable to localize pain for as due to her lethargy /refusal to answer -reviewed MRIs, discussed with general surgery - unclear if pain is due to osteomyelitis or some radicular component -reviewed imaging over the phone briefly with neurology who recommended a lumbar MRI to rule out any cauda equina involvement -lumbar MRI notable for some foraminal stenosis, no cauda equina involvement -pain can be some component of radicular pain. Will treat with gabapentin -Dilaudid for pain -vanc & meropenem for sacral osteo - pt with pcn allergy -general surgrey and nephrology consulted -obtain home medications and restart as appropriate -SSI, accuchecks VTE: lovenox Code: Full Dispo: hospitalization >2 days
--- NOTE | 2020-07-02 16:03 | RAD REPORT ---
EXAM DESCRIPTION: CT - Head Brain Wo Cont - 07/02/2020 2:58 pm CLINICAL HISTORY: Alteration of awareness/confusion COMPARISON: 2010 TECHNIQUE: Computed axial tomography of the head was obtained. IV contrast was not requested. All CT scans are performed using dose optimization technique as appropriate and may include automated exposure control or mA/KV adjustment according to patient size. FINDINGS: Some of the images degraded by patient motion artifact An intracranial bleed is not seen . The ventricles are normal in caliber. No extra-axial fluid collection is noted. Mild low-density areas within periventricular, deep and subcortical white matter likely represent isc hemic changes secondary to small vessel disease. Opacification of the right maxillary sinus indicative of sinusitis. Mastoids are hazy IMPRESSION: No acute intracranial abnormality is seen. If patient's symptoms persist MRI of the bra in would be recommended. Mastoids are hazy which could be related to mastoiditis and should be correlated clinically
[2020-07-02 16:07] LABS: Hematocrit 30.2 % (36.0-45.0)
[2020-07-02] MEDS: COLLAGENASE 30 GM OINTMENT TOP SCH (17:00)
--- NOTE | 2020-07-02 19:31 | P.PN ---
Subjective Date of Service: 07/02/20 Chief Complaint: sacrum osteomyelitis, intractable pain Subjective: Other (no significant changes. patient with less pain/yelling overnight per nursing staff. received dilaudid yesterday evening. 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 Hypertension -sacral decubitus ulcer - general surgery consulted for wound care / ?debridement -mild tenderness to palpation around ulcer -patient with what appears to be severe pain/moaning with either leg hip flexion, patient unable to localize pain for as due to her lethargy /refusal to answer - reports patient had similar episode of moaning / difficult speaking last year when she missed several days of dialysis -lumbar MRI with mod-severe bilateral foraminal stenosis at l5-s1. no cauda equina involvement. pain possibly a component of radicular pain, unclear. Consulted neurology, will try gabapentin (pt has been refusing) -do not suspect meningitis - pt without headache/nuchalrigidity per my exam and did not complain of this prior to admission according to -Dilaudid for pain, 0.5mg PRN -vanc & meropenem for sacral osteo - pt with pcn allergy -f/u blood and wound cultures -ESR/CRP elevated -nephrology consulted for ESRD- dialysis -SSI, accuchecks VTE: lovenox Code: Full Dispo: hospitalization >2 days Time Spent Managing Pts Care (In Minutes): 45
[2020-07-02] MEDS: Meropenem 1,000 MG in NA CHLORIDE 0.9% 100 ML IV SCH (20:08)
[2020-07-02] MEDS: GABAPENTIN 100 MG CAP PO SCH (20:11)
[2020-07-03] MEDS ORDERED: LORazepam 2 MG/ML VIAL IV ONE (01:15)
[2020-07-03 05:56] LABS: Absolute Lymphocytes (CBC) 0.6 K/uL (0.7-4.9); Basophils % 0.1 % (0-1.3); Hematocrit 30.1 % (36.0-45.0); Lymphocytes % 3.5 % (15.3-44.8); MPV 8.5 fL (7.6-11.3); RBC Red Blood Cell Count 3.13 M/uL (3.86-4.86)
[2020-07-03 06:29] LABS: Albumin 1.9 g/dL (3.4-5.0); Bilirubin Total 0.8 mg/dL (0.2-1.0); Magnesium 2.4 mg/dL (1.8-2.4); Potassium 4.1 mmol/L (3.5-5.1); Protein, Total 6.1 g/dL (6.4-8.2)
[2020-07-03] MEDS: INSULIN -REGULAR HUMAN 50 UNIT/0.5 ML ML SQ SCH ×3 (07:30→18:07)
[2020-07-03] MEDS: SEVELAMER CARBONATE 800 MG TABLET PO SCH ×3 (08:00→16:25)
[2020-07-03] MEDS: COLLAGENASE 30 GM OINTMENT TOP SCH (08:17)
[2020-07-03] MEDS: VITAMIN D 5,000 UNIT CAP PO SCH (08:18)
[2020-07-03] MEDS: GABAPENTIN 100 MG CAP PO SCH ×2 (08:18→21:00)
[2020-07-03] MEDS: CALCITROL 0.25 MCG CAP PO SCH (08:18)
[2020-07-03] MEDS: DOCUSATE NA 100 MG CAP PO SCH ×2 (08:18→21:00)
[2020-07-03] MEDS: COENZYME Q10- 200 MG CAP PO SCH (08:18)
[2020-07-03] MEDS: MULTIVITAMINS,THERAPEUT 1 TAB PO SCH (08:18)
--- NOTE | 2020-07-03 11:32 | P.PN ---
Subjective Date of Service: 07/03/20 Chief Complaint: sacrum osteomyelitis, intractable pain Subjective: Other (s/p HD yesterday. Pt with slight improvement in mentation - still mostly moaning, was able to say will need to words today. Does seem to be having some pain, however moaning does not seen to be directly correlated with her pain. She received Ativan overnight) Review of Systems is unable to be obtained Physical Examination - Vital Signs Temperature: 98.7 F Blood Pressure: 105/52 Pulse: 77 Respirations: 20 Pulse Ox (%): 100 Assessment & Plan Physician Review Additional Text: Physical Exam: Gen: lethargic, arousable, moaning, opens eyes to verbal stimuli Neuro: moaning. stop moaning when I was talking to her, seemed as though she was trying to respond but couldn't get any words out and came out as moaning. 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 Hypertension Sacral decubitus ulcer Sacral osteomyelitis Metabolic vs Toxic encephalopathy acute on chronic malnutrition - general surgery consulted for wound care / ?debridement. TTP around ulcer - continue Vanc and Meropenem - anaerobic blood culture growing GNR - should be covered by meropenem - CRP slightly down, Procal slightly up - suspect infection is leading to metabolic encephalopathy - long discussion with has been yesterday, patient was very similar and moaning/difficult verbalize when she had uremic encephalopathy last year - pt does have pain, but I think her moaning is more from her encephalopathy and is being misinterpreted as intractable pain - she was taking tylenol 3 and then tylenol 4 at home prior to admission for lower back/buttock pain - do not suspect meningitis - pt without headache/nuchalrigidity per my exam and did not complain of this prior to admission according to - BUN not nearly as high as last admission - will place dobhoff and initiate tube feeds - pt has not eaten much in several days Back pain -lumbar MRI with mod-severe bilateral foraminal stenosis at l5-s1. no cauda equina involvement. pain possibly a component of radicular pain, unclear. Consulted neurology, will try gabapentin (pt has been refusing) -believe she does have some pain, but not 10/10 intractable as noted above -continue dilaudid, 0.5mg PRN ESRD on HD, COPD, IDDM, HTN -nephrology consulted for ESRD- dialysis -SSI, accuchecks -will monitor BP for now, slightly hypotensive VTE: lovenox Code: Full Dispo: hospitalization >2 days may need LTACH on discharge, will need prolonged antibiotics at minimum - with dialysis vs LTACH Time Spent Managing Pts Care (In Minutes): 45
--- NOTE | 2020-07-03 11:37 | PN ---
Date of Progress Note: 07/03/2020 Subjective: The patient is moaning nonspecifically, not really complaining of any specific area or b samir hurting. She does not respond to questioning. She is lying on her right side. Objective: Vital Signs: Stable. She is afebrile. Extremities: Examination of the sacral region reveals it to be approximately 4 x 4 cm of erythema an d edema with minimal drainage from the open wound which is approximately 3 cm x 1 cm and the drainage is kind of tannish color fluid. Upon direct palpation of the area, the patient does not have acute pain or does not increase in her moans when that takes place. Laboratory Data: Her blood culture has gram-negative rods growing and sensitivity is not out yet. H er white count is 18.5 with a left shift. Assessment: A 65-year-old female with multiple medical problems with end-stage renal disease, infect ed sacral decubitus with osteomyelitis, and pain of unknown severity at this time. Recommendations: We would need a Neurology evaluation on this patient and continue the IV antibiotic s. We will check the cultures and sensitivity and adjust antibiotics accordingly. She is on meropen em and vancomycin. Wound care is ordered. At some point, she may need debridement when she is more medically stable and her mental status is better. She may have a component of encephalopathy seconda ry to infection as well as uremia from her end-stage renal disease. She is being dialyzed and hopefu lly she will improve within the next 24-48 hours. We will continue to follow the patient while in [facility]. /MODL Voice ID: [id number] Report ID: [id number]
--- NOTE | 2020-07-03 15:07 | PN ---
Date of Progress Note: 07/03/2020 Subjective: The patient is looking about the same as yesterday. She still moans a little bit. She is not able to answer questions appropriately. Does seem to be confused at her baseline, which has b een like this for a few days. is in the room with her. States that she has not been like th is about 2 weeks ago when she was able to communicate better, follow some commands, and assist him wi th her transfers. The patient had an episode in March when she had some confusion but at that time , she did resolve or improved with dialysis. She had not gone to dialysis as she was not feeling wel l and once her dialysis was resumed, the patient did feel better. At this time, however, the patient 's dialysis has been ongoing and the patient is still not doing well even after dialysis yesterday. She did not improve significantly. The patient has had imaging done of her brain and also has had cu ltures done of a sacral wound that the results are pending. She is on antibiotics right now. She henderson s been offered a spinal tap but the in discussion with the hospitalist and also with the neur ologist have decided the risks of this is too much right now with an ongoing infection and a culture is pending. Objective: Vital signs: Vitals today are stable. Reviewed. Lungs: Clear to auscultation with decreased air entry bilaterally with poor effort. Neurologic: The patient does not follow commands. She is confused in terms of not being able to ans wer questions. She does moan to any questions. She does grimace at times but when you are not commu nicating with her she does seem to be comfortable and stable. Abdomen: Soft. Extremities: With no edema. She has weakness bilaterally and unable to move her legs much. She has been wheelchair bound for 3 years. So that is not a new change. Laboratory Data: Reviewed from today. CBC and electrolytes, reviewed. Assessment And Plan: 1.The patient is dialysis dependent. Had dialysis yesterday. We will plan for dialysis Saturday, Sat, Saturday and dialysis support as needed in the hospital while the patient is here. 2.Ongoing sacral infection and wound with osteomyelitis, on antibiotics. 3.Change of mental status. Not exactly clear. Could be related to her ongoing infection. Cultures are pending right now. A spinal tap may be reconsidered depending on if there is a condition change , however, at this point, it seems like the risks of this are higher than the benefits and this has b een discussed with the family by the appropriate consultants. The patient at this point is very frail and will likely need antibiotics for several weeks given her osteomyelitis in the sacral area. Given that scenario, she is going to need to have outpatient antib iotics arranged. will discuss this further with the care coordinators and the primary team t omorrow to see how this could be arranged once patient is stable enough to be discharged. He is some what uncomfortable going to an LTAC given the COVID-19 pandemic ongoing and the possibility of catchi ng infections in those facilities, but the patient is open to discussions to what could be done to lo gistically get outpatient antibiotics arranged, whether it be at a rehab, whether it be at an LTAC fa cility or to dialysis unit while the patient is coming there for treatments if she is stable to fer booth doing that. We will also order an ammonia level for the patient right now to see if there is any room for giving her lactulose and improving her condition that way. /LANRE Voice ID: [id number] Report ID: [id number]
[2020-07-03] MEDS: HYDROMORPHONE HCL 1 MG/ML INJ IV PRN ×2 (17:36→23:28)
[2020-07-03] MEDS: Meropenem 1,000 MG in NA CHLORIDE 0.9% 100 ML IV SCH (21:23)
[2020-07-04] MEDS: INSULIN -REGULAR HUMAN 50 UNIT/0.5 ML ML SQ SCH ×4 (01:07→18:27)
[2020-07-04 04:26] LABS: Hematocrit 30.1 % (36.0-45.0); MPV 8.2 fL (7.6-11.3); RBC Red Blood Cell Count 3.21 M/uL (3.86-4.86)
[2020-07-04 04:54] LABS: Albumin 1.9 g/dL (3.4-5.0); Bilirubin Total 0.6 mg/dL (0.2-1.0); Magnesium 2.5 mg/dL (1.8-2.4); Phosphorus 4.3 mg/dL (2.5-4.9); Potassium 3.8 mmol/L (3.5-5.1); Protein, Total 5.6 g/dL (6.4-8.2)
[2020-07-04] MEDS: HYDROMORPHONE HCL 1 MG/ML INJ IV PRN (06:03)
[2020-07-04] MEDS: SEVELAMER CARBONATE 800 MG TABLET PO SCH ×3 (08:00→16:39)
[2020-07-04] MEDS: COLLAGENASE 30 GM OINTMENT TOP SCH (09:00)
[2020-07-04] MEDS: DOCUSATE NA 100 MG CAP PO SCH ×2 (09:00→21:00)
[2020-07-04] MEDS: CALCITROL 0.25 MCG CAP PO SCH (09:00)
[2020-07-04] MEDS: GABAPENTIN 100 MG CAP PO SCH ×2 (09:00→21:00)
[2020-07-04] MEDS: COENZYME Q10- 200 MG CAP PO SCH (09:00)
[2020-07-04] MEDS: VITAMIN D 5,000 UNIT CAP PO SCH (09:00)
[2020-07-04] MEDS: MULTIVITAMINS,THERAPEUT 1 TAB PO SCH (09:00)
--- NOTE | 2020-07-04 10:02 | P.PN ---
Subjective Date of Service: 07/04/20 Chief Complaint: sacrum osteomyelitis, intractable pain patient still unable to give answers. confusion/change of mental status. unlikely to be uremic as not much improved with dialysis. has osteomylitis and ? if this is delerium /encephalopathy in setting of infection. on abx. spoke with . discussed with Dr. [place]. ongoing pain/moans at times. vs stable lungs decreased bs /poor effort cvs regular abd soft ext trace edema labs reviwed. a/p: esrt/osteomylitis/pain/encephelopathy, change of mental status: on low dose dilautid/team is balancing pain control with change in mental status. gentle use of fentanyl patch may be considered to help alleviate pain. dialysis today with gentle uf/albumin iv once with dialysis (level is very low) and will help bp stability/on abx and getting wound care. fall precautions. Physical Examination - Vital Signs Temperature: 98.2 F Blood Pressure: 148/69 Pulse: 82 Respirations: 20 Pulse Ox (%): 95 Assessment And Plan Physician Review Additional Text: Physical Exam: Gen: lethargic, arousable, moaning, opens eyes to verbal stimuli Neuro: moaning. stop moaning when I was talking to her, seemed as though she was trying to respond but couldn't get any words out and came out as moaning. 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 Hypertension Sacral decubitus ulcer Sacral osteomyelitis Metabolic vs Toxic encephalopathy acute on chronic malnutrition - general surgery consulted for wound care / ?debridement. TTP around ulcer - continue Vanc and Meropenem - anaerobic blood culture growing GNR - should be covered by meropenem - CRP slightly down, Procal slightly up - suspect infection is leading to metabolic encephalopathy - long discussion with has been yesterday, patient was very similar and moaning/difficult verbalize when she had uremic encephalopathy last year - pt does have pain, but I think her moaning is more from her encephalopathy and is being misinterpreted as intractable pain - she was taking tylenol 3 and then tylenol 4 at home prior to admission for lower back/buttock pain - do not suspect meningitis - pt without headache/nuchalrigidity per my exam and did not complain of this prior to admission according to - BUN not nearly as high as last admission - will place dobhoff and initiate tube feeds - pt has not eaten much in several days Back pain -lumbar MRI with mod-severe bilateral foraminal stenosis at l5-s1. no cauda equina involvement. pain possibly a component of radicular pain, unclear. Consulted neurology, will try gabapentin (pt has been refusing) -believe she does have some pain, but not 10/10 intractable as noted above -continue dilaudid, 0.5mg PRN ESRD on HD, COPD, IDDM, HTN -nephrology consulted for ESRD- dialysis -SSI, accuchecks -will monitor BP for now, slightly hypotensive VTE: lovenox Code: Full Dispo: hospitalization >2 days may need LTACH on discharge, will need prolonged antibiotics at minimum - with dialysis vs LTACH
--- NOTE | 2020-07-04 11:10 | PN ---
Date of Progress Note: 07/04/2020 Subjective: The patient is awake, moaning, not responding appropriately to verbal questions. Objective: VITAL SIGNS: Stable. She is afebrile. PELVIC: Her examination of the sacrum reveals no significant changes. There is approximately a 4 x 4 cm area of erythema and induration. There is no fluctuance. There is no abscess that needs to be drained. There is an open wound which is draining tannish color fluid and has packing in place. Laboratory Data: Her white count is 17.7. Her cultures are pending. Assessment: Sacral decubitus in a patient with intractable pain or encephalopathy is unclear at this time. She also has osteomyelitis of the sacrococcygeal region which is being treated with antibioti cs. She also has sepsis with 1 of the blood cultures being positive for gram-negative rods. Recommendations: Continue IV antibiotics. We will await Neurology evaluation. Continue medical man agement with antibiotics and dialysis. We will make further recommendation after Neurology has had a chance to examine the patient and reviewed the MRI. GUY/MODL Voice ID: [id number] Report ID: [id number]
--- NOTE | 2020-07-04 13:15 | P.PN ---
Subjective Date of Service: 07/04/20 Chief Complaint: sacrum osteomyelitis, intractable pain Subjective: No new changes (able to take sips of nepro shakes yesterday (~1/4 bottle), received dilaudid this morning, more sleepy again. Due for dialysis.) Review of Systems is unable to be obtained Physical Examination - Vital Signs Temperature: 97.3 F Blood Pressure: 144/54 Pulse: 77 Respirations: 20 Pulse Ox (%): 96 Assessment & Plan Physician Review Additional Text: Physical Exam: Gen: lethargic, arousable, moaning, opens eyes to verbal stimuli Neuro: moans, seems to be trying to communicate but coming out as moan. 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 Hypertension Sacral decubitus ulcer Sacral osteomyelitis Metabolic vs Toxic encephalopathy acute on chronic malnutrition - general surgery consulted for wound care / ?debridement. TTP around ulcer - continue Vanc and Meropenem - anaerobic blood culture growing GNR - should be covered by meropenem - CRP down trending - suspect infection is leading to metabolic encephalopathy - long discussion with - patient was very similar and moaning/difficult verbalize when she had uremic encephalopathy last year - pt does have pain, but I think her moaning is more from her encephalopathy and is being misinterpreted as intractable pain - she was taking tylenol 3 and then tylenol 4 at home prior to admission for lower back/buttock pain - do not suspect meningitis - pt without headache/nuchalrigidity per my exam and did not complain of this prior to admission according to - BUN not nearly as high as last admission - was able to drink some fluids yesterday with husbands encouragement, if not able to continue to drink, will place dobhoff and initiate tube feeds - pt has not eaten much in several days Back pain -lumbar MRI with mod-severe bilateral foraminal stenosis at l5-s1. no cauda equina involvement. pain possibly a component of radicular pain, unclear. Consulted neurology, will try gabapentin (pt has been refusing) -believe she does have some pain, but not 10/10 intractable as noted above -decrease dilaudid to 0.25mg PRN, do not want to sedate patient, will consider fentanyl patch ESRD on HD, COPD, IDDM, HTN -nephrology consulted for ESRD- dialysis -SSI, accuchecks -will monitor BP for now, slightly hypotensive VTE: lovenox Code: Full Dispo: hospitalization >2 days may need LTACH on discharge, will need prolonged antibiotics at minimum - with dialysis vs LTACH Time Spent Managing Pts Care (In Minutes): 35
[2020-07-04] MEDS: HYDROMORPHONE HCL 0.5 MG/0.5 ML INJ IV PRN ×2 (13:49→18:55)
[2020-07-04] MEDS ORDERED: NEPRO 1,000 ML BOT RTH SCH (17:00)
[2020-07-04] MEDS: VANCOMYCIN 500 MG in NA CHLORIDE 0.9% 100 ML IVPB SCH (18:27)
[2020-07-04] MEDS: Meropenem 1,000 MG in NA CHLORIDE 0.9% 100 ML IV SCH (21:00)
[2020-07-04] MEDS: NEPRO SHAKE 237 ML CAN PO SCH (21:09)
[2020-07-04] MEDS ORDERED: WATER FOR INJ,STERILE 10 ML IM PRN (22:19)
[2020-07-04] MEDS ORDERED: ZIPRASIDONE MESYLA 20 MG/VIAL IM ONE (22:19)
[2020-07-05] MEDS: HYDROMORPHONE HCL 0.5 MG/0.5 ML INJ IV PRN ×2 (00:39→08:35)
[2020-07-05 04:36] LABS: Absolute Lymphocytes (CBC) 0.8 K/uL (0.7-4.9); Basophils % 0.5 % (0-1.3); Lymphocytes % 5.2 % (15.3-44.8); RBC Red Blood Cell Count 3.33 M/uL (3.86-4.86)
[2020-07-05 04:52] LABS: Albumin 1.9 g/dL (3.4-5.0); Bilirubin Total 0.8 mg/dL (0.2-1.0); Magnesium 2.3 mg/dL (1.8-2.4); Potassium 3.4 mmol/L (3.5-5.1); Protein, Total 5.7 g/dL (6.4-8.2)
[2020-07-05 05:06] LABS: Blood Morphology Comment NOT SEEN (NOT SEEN); Platelet Estimate ADEQ
[2020-07-05] MEDS: INSULIN -REGULAR HUMAN 50 UNIT/0.5 ML ML SQ SCH ×4 (06:00→18:20)
[2020-07-05] MEDS: NEPRO SHAKE 237 ML CAN PO SCH ×2 (09:00→20:32)
[2020-07-05] MEDS: VITAMIN D 5,000 UNIT CAP PO SCH (09:00)
[2020-07-05] MEDS: COLLAGENASE 30 GM OINTMENT TOP SCH (09:00)
[2020-07-05] MEDS: GABAPENTIN 100 MG CAP PO SCH ×2 (09:41→20:32)
[2020-07-05] MEDS: SEVELAMER CARBONATE 800 MG TABLET PO SCH ×3 (09:42→17:08)
[2020-07-05] MEDS: CALCITROL 0.25 MCG CAP PO SCH (09:44)
[2020-07-05] MEDS: DOCUSATE NA 100 MG CAP PO SCH ×2 (09:45→20:32)
[2020-07-05] MEDS: MULTIVITAMINS,THERAPEUT 1 TAB PO SCH (09:45)
[2020-07-05] MEDS: COENZYME Q10- 200 MG CAP PO SCH (09:45)
--- NOTE | 2020-07-05 15:42 | P.PN ---
Subjective Date of Service: 07/05/20 Chief Complaint: sacrum osteomyelitis, intractable pain Patient still appear confused and moan occasionally. Repeat blood culture: No growth to date. Physical Examination - Vital Signs Temperature: 98.0 F Blood Pressure: 135/63 Pulse: 83 Respirations: 20 Pulse Ox (%): 99 - Physical Exam General: Confused HEENT: Mucous membr. moist/pink Respiratory: Clear to auscultation bilaterally, Normal air movement Cardiovascular: No edema, Regular rate/rhythm, Normal S1 S2 Gastrointestinal: Normal bowel sounds, Soft and benign, Non-distended Musculoskeletal: No swelling Integumentary: Other (Tunnelled ulcer at midline of lower back) Neurological: Other (She moves all extremities spontaneously) Assessment And Plan Physician Review Additional Text: Physical Exam: Gen: lethargic, arousable, moaning, opens eyes to verbal stimuli Neuro: moans, seems to be trying to communicate but coming out as moan. 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 Hypertension Sacral decubitus ulcer Sacral osteomyelitis Metabolic vs Toxic encephalopathy acute on chronic malnutrition - general surgery consulted for wound care / ?debridement. TTP around ulcer - continue Vanc and Meropenem - anaerobic blood culture growing GNR - should be covered by meropenem. -repeat blood culture shows no growth - CRP continue to trend down. - suspect infection is leading to metabolic encephalopathy - pt does have pain. Frequent morning may be related to overexpression due to encephalopathy. -she is on hydromorphone p.r.n. for pain. - BUN level has improved. - feeding as tolerated. Back pain -lumbar MRI with mod-severe bilateral foraminal stenosis at l5-s1. no cauda equina involvement. pain possibly a component of radicular pain, unclear. Consulted neurology, will try gabapentin (pt has been refusing) -Dilaudid to 0.25mg PRN. ESRD on HD, COPD, IDDM, HTN -nephrology consulted -routine hemodialysis per nephrology. -SSI, accuchecks -will monitor BP for now, slightly hypotensive VTE: lovenox Code: Full Dispo: hospitalization >2 days may need LTACH on discharge, will need prolonged antibiotics at minimum - with dialysis vs LTACH
--- NOTE | 2020-07-05 19:10 | CON ---
Reason For Consultation: Consultation called because of confusion. History Of Present Illness: Mrs. Hightower is a 65-year-old patient, admitted to [facility] w ith sacrum osteomyelitis and open wound in the lower sacral area. The patient was admitted on 2020 and I have seen the patient on the . The patient's was in the room and provid ed information. She is sleepy. He noted at baseline, she is wheelchair bound from severe lumbar cor d compression and has chronic radiculopathy, but that has been not a vague problem. He said over sev eral days prior to coming in, she developed more severe pain in the sacral area at the region of the open wound and any attempted turning and moving would result in screaming and severe pain. At [facility], imaging of the lumbosacral spine revealed no acute marrow edema or marrow displacement ; however, there was moderate severity bilateral foraminal stenosis. There was no central canal sten osis. At the L4-5 level, there was mild left foraminal stenosis and central canal was down to 8 mm, but it should be noted that the patient does not have pain that radiates past the buttocks into the t high or leg, which would be expected for severe nerve root compression. A sacrum and coccyx MRI iden tified again the moderate L3-4 and mild to moderate L4-5 central canal stenosis and moderate bilatera l L5-S1 foraminal stenosis. There was sacral osteomyelitis at the sacrum-coccyx junction. She is on multiple antibiotics per primary team. Review of the patient's chart from previously did show 3 yea rs ago an MRI of the brain with moderate global atrophy. Repeat CT scan done at this visit did not s how any acute changes. The study was compared to 1 done in 2010 and there was small vessel ischemic disease again identified. The patient's said that in the morning, she would be more awake, i nteractive, and would drink small amounts of nutritional drink and take her medications, and has been more responsive to open her eyes to look at him and to move both upper and lower extremities equally well, although for the last 3 days she has been mostly bed bound and not had physical therapy as of this point. Her most recent blood work shows a white blood cell count of 14.5 with 88.6% neutrophils . Two days ago, white blood cell count was elevated at 18.5 with 92.8% neutrophils. She had an elev ated erythrocyte sedimentation rate and her procalcitonin has remained elevated, most recently at 3.8 1. She has chronic renal insufficiency. Past Medical History: As indicated. Diabetes mellitus, hypertension, end-stage renal disease on hem odialysis, hypothyroidism, diabetes mellitus type 1 with insulin pump. The patient is a kidney trans plant recipient. She has had cataract surgery and breast augmentation surgery. Allergies: PENICILLIN. Medications: At home, vitamin C 1000 mg daily, B complex 1 daily, isosorbide mononitrate 120 mg at b edtime, levothyroxine 150 mcg daily, Procardia XL 90 mg twice daily, Pravachol 20 mg at bedtime, Core g 25 mg twice daily, esomeprazole magnesium 40 mg daily, Cytomel 5 mcg daily, omega-3 fish oil 1200 m g daily, ferric citrate 210 mg 4 times daily, vitamin B6 100 mg daily, biotin 5 mg daily, vitamin D3 5000 international units daily, folic acid, B complex, Judy-Karl 0.8 mg daily, Apresoline 100 mg twic e daily, losartan 50 mg daily. Family History: Noncontributory. Social History: No alcohol, tobacco, or IV drug use. The patient does have caffeine. Lives with he r . Mostly have been wheelchair bound for more than 2 years. Review of Systems: Cannot be reliably obtained at this point. Physical Examination: Vital Signs: Blood pressure 134/58, pulse 65, respiratory rate 16 to 20, temperature 98.0, oxygen sa turation 100% on room air. Weight 121 pounds, height 5 feet 5 inches, BMI 20.1. General: Mrs. Hightower is resting in bed. She is sleepy, but arousable and follows simple commands. Eye tracking. She has good air movement. Mild edema in the lower extremities. Abdomen: Soft. Neurological: The patient was asleep, but did note when he woke her, she would respond to hi m appropriately, turned and look to him. She did drink nutritional drink earlier today and had her m edications by sips of water. Cranial nerves does not show any obvious focal deficits. She has diffu se weakness in the upper and lower extremities without focal weakness. She has a stocking-glove loss to light touch and temperature in the legs and the arms. Tone is normal. Reflexes depressed, but s ymmetric. Cannot fully assess coordination and gait. Assessment: Mrs. Hightower is a 65-year-old patient with multifactorial reasons for encephalopathy and independent reasons for lower back sacral pain. Her encephalopathy is a combination of a chronic sm all vessel ischemic disease related likely to vascular dementia with superimposed uremic encephalopat hy from her chronic kidney disease in addition to toxic encephalopathy from her sacral decubital ulce r and as evidenced by elevated white blood cell count and elevated procalcitonin. She does not have any evidence of toxic injury or ischemic injury to her brain. No evidence of tonic-clonic or seizure -like activity. Her pain is not radicular in nature as it does not pass the buttocks into the lower extremities, is localized to the sacral area per the , and is severe when turning from side-to -side. That may be managed as per primary team. Plan: Continue with IV antibiotics as appropriate. Continue using pain management as appropriate an d aggressive renal dialysis as appropriate. At this point, no further neurological workup is require d. Should be noted that the patient will require physical therapy to help her recover since she has been in bed about 3 days and not been up and out of bed or ambulated. LB/MODL Voice ID: [id number] Report ID: [id number]
[2020-07-05] MEDS: Meropenem 1,000 MG in NA CHLORIDE 0.9% 100 ML IV SCH (20:31)
[2020-07-06 04:29] LABS: Basophils % 0.4 % (0-1.3); Hematocrit 31.1 % (36.0-45.0); Lymphocytes % 8.1 % (15.3-44.8); MPV 7.7 fL (7.6-11.3); RBC Red Blood Cell Count 3.34 M/uL (3.86-4.86)
[2020-07-06 04:41] LABS: Albumin 1.7 g/dL (3.4-5.0); Phosphorus 3.8 mg/dL (2.5-4.9); Potassium 3.4 mmol/L (3.5-5.1)
[2020-07-06] MEDS: INSULIN -REGULAR HUMAN 50 UNIT/0.5 ML ML SQ SCH ×4 (05:09→18:31)
[2020-07-06] MEDS: SEVELAMER CARBONATE 800 MG TABLET PO SCH ×3 (08:00→17:00)
[2020-07-06] MEDS: COENZYME Q10- 200 MG CAP PO SCH (08:57)
[2020-07-06] MEDS: MULTIVITAMINS,THERAPEUT 1 TAB PO SCH (08:57)
[2020-07-06] MEDS: DOCUSATE NA 100 MG CAP PO SCH ×2 (08:57→20:42)
[2020-07-06] MEDS: NEPRO SHAKE 237 ML CAN PO SCH ×2 (08:58→20:43)
[2020-07-06] MEDS: CALCITROL 0.25 MCG CAP PO SCH (08:58)
[2020-07-06] MEDS: GABAPENTIN 100 MG CAP PO SCH ×2 (08:58→20:42)
[2020-07-06] MEDS: VITAMIN D 5,000 UNIT CAP PO SCH (08:58)
[2020-07-06] MEDS: COLLAGENASE 30 GM OINTMENT TOP SCH (08:58)
[2020-07-06] MEDS: HYDROMORPHONE HCL 0.5 MG/0.5 ML INJ IV PRN ×2 (10:32→15:25)
--- NOTE | 2020-07-06 11:26 | PN ---
Date of Progress Note: 07/06/2020 Subjective: The patient is awake and alert today complaining of lower back pain but her pain is sabino ged much better than it was a couple days ago. She is in dialysis so we cannot look at her wound tod ay, will look at it tomorrow. Her white count is down to 11.9. Her bowels are stable. She is afebr ile. Dressing clean, dry, and intact. Assessment: A 65-year-old female with multiple medical problems, end-stage renal disease, osteomyeli tis and sacral decubitus. Mental status changes which is improving and constipation which is improvi ng. Recommendations: Continue medical management as ordered, wound care as ordered. We will follow the patient while in the hospital and the wound healing center upon discharge. /MODL Voice ID: [id number] Report ID: [id number]
[2020-07-06] MEDS ORDERED: EPOETIN ALFA 10,000 UNIT/ML VIAL IV SCH (13:30)
--- NOTE | 2020-07-06 13:53 | PN ---
Date of Progress Note: 07/06/2020 Subjective: The patient is seen and examined. She is confused. She is unable to give me much histo ry. Physical Examination: Vital Signs: Reviewed and are stable. General: She appears in no acute distress. She is cachectic and malnourished. Extremities: Showed no evidence of edema. Lungs: Clear to auscultation. Laboratory Data: At this time showing sodium of 140, potassium of 3.4, chloride of 103, BUN of 15, c reatinine of 3.74. CBC showing WBC count improving to 11.9, hemoglobin of 10.7, hematocrit of 31.1, and platelet count of 272. Current Medications: Have been reviewed in detail. She is on vancomycin with dialysis for her infec derek sacral ulcer along with meropenem. Impression: 1.End-stage renal disease, on dialysis. 2.Sacral ulcer with wound care, on antibiotics. 3.Altered mental status secondary to metabolic encephalopathy, being followed by Dr. Norwood. 4.Anemia secondary to chronic disease. 5.Severe debility and weakness. 6.Type 2 diabetes, on insulin. Plan: Overall, the patient's leukocytosis is improving. Continue to monitor mental status. Continu e Saturday, Saturday, Saturday dialysis. Monitor anemia and start her on Epogen and continue wound care for her sacral osteomyelitis along wit h antibiotics. VV/MODL Voice ID: [id number] Report ID: [id number]
--- NOTE | 2020-07-06 15:28 | P.PN ---
Subjective Date of Service: 07/06/20 Chief Complaint: sacrum osteomyelitis, intractable pain Patient is more awake and interactive today Repeat blood culture: No growth to date. She is tolerating feeding. She was seen during dialysis. Physical Examination - Vital Signs Temperature: 96.7 F Blood Pressure: 120/55 Pulse: 71 Respirations: 20 Pulse Ox (%): 100 - Physical Exam General: Confused, Other (Awake) Neck: JVD not distended Respiratory: Clear to auscultation bilaterally, Normal air movement Cardiovascular: No edema, Regular rate/rhythm, Normal S1 S2 Gastrointestinal: Normal bowel sounds, Soft and benign, Non-distended Musculoskeletal: No swelling Neurological: Other (No focal deficit.) Assessment And Plan Physician Review Additional Text: Physical Exam: Gen: lethargic, arousable, moaning, opens eyes to verbal stimuli Neuro: moans, seems to be trying to communicate but coming out as moan. 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 Hypertension Sacral decubitus ulcer Sacral osteomyelitis Metabolic vs Toxic encephalopathy acute on chronic malnutrition - general surgery consulted for wound care /debridement. Local wound care recommended - continue Vanc and Meropenem - anaerobic blood culture growing GNR - should be covered by meropenem. -repeat blood culture shows no growth - CRP continue to trend down. - suspect infection is leading to metabolic encephalopathy. Patient is more awake and interactive today. Encephalopathy is improving. -she is on hydromorphone p.r.n. for pain. - BUN level has improved. - feeding as tolerated. -infectious disease consulted. Back pain -lumbar MRI with mod-severe bilateral foraminal stenosis at l5-s1. no cauda equina involvement. pain possibly a component of radicular pain, unclear. -discussed with neurology. Altered mental status: -Dilaudid to 0.25mg PRN. ESRD on HD, COPD, IDDM, HTN -nephrology is following -routine hemodialysis per nephrology. -SSI, accuchecks -BP is normal without her blood pressure medications. -will continue to hold antihypertensives and monitor. VTE: lovenox Code: Full may need LTACH on discharge, will need prolonged antibiotics at minimum - with dialysis vs LTACH
--- NOTE | 2020-07-06 15:38 | CON ---
History Of Present Illness: This is a 65-year-old who was consulted for osteomyelitis of the sacral coccyx region. The patient has a stage IV ulcer which is being treated by the Wound Care team. The patient denies any headache, nausea, vomiting, chest pain, abdominal pain, constipation, or diarrhea. Feels of being tired and also having pain in her buttock region. The patient was brought into the emergency room. Most of the history was obtained through who was also at the bedside and [facility] records. Past Medical History: The patient has significant past medical history of end-stage renal disease, h ypertension, diabetes mellitus, renal transplant which failed in 1999, diabetes mellitus, hypothyroid ism, bilateral mastectomy, cataract surgery, coronary artery disease. Social History: Nonsmoker, nondrinker. Family History: Noncontributory. Medications: Vancomycin. See MARS for other medications. Allergies: PENICILLIN. Review of Systems: A 10-point review was performed. Physical Examination: General: This is a 65-year-old female, lying in bed, not in any acute cardiopulmonary distress. Vital Signs: Temperature 97, pulse 71, respirations 20, blood pressure 124/50. HEENT: Unremarkable. Neck: Supple. Lungs: Basal crackles. Heart: S1, S2 regular. Abdomen: Soft. Bowel sounds present. Extremities: No edema. Muscle wasting noted. Sacral area with wound noted. Good granulation tissu e undermining also noted. Laboratory Data: Shows WBC 11.9, down from 18.5; hemoglobin 8.7; platelets are 272. Chemistry shows sodium 140, potassium 3.4, chloride 103, bicarb 21, BUN 30, creatinine 3.7, glucose is 115, albumin is 1.7. Micro data shows the patient's blood cultures are growing gram-negative rods. Sensitivity a nd specificity pending. Cultures were done on July 01. Lumbar spine MRI shows degenerative alvarenga es throughout the lumbar vertebrae replacing process. Sacral and coccyx MRI done on shows that the patient has multilevel degenerative changes to the lumbar spine; moderate L3-L4, [id number] L4-L5 central spine stenosis; sacral osteomyelitis at the sacral coccyx junction no derek. No abscesses were noted. Assessment And Plan: A 65-year-old female with multiple medical problem with end-stage renal disease , severe protein-calorie malnourishment, leukocytosis, currently being treated with vancomycin and co llagenase. We will recommend to stop vancomycin. Continue meropenem and supportive care and follow the patient as needed. Consider applying Medihoney into the sacral wound with alginate. NF/MODL Voice ID: [id number] Report ID: [id number]
[2020-07-06] MEDS: VANCOMYCIN 500 MG in NA CHLORIDE 0.9% 100 ML IVPB SCH (18:18)
[2020-07-06] MEDS: Meropenem 1,000 MG in NA CHLORIDE 0.9% 100 ML IV SCH (20:41)
[2020-07-06] MEDS: POLYETHYL GLY 3350 17 GM/DOSE PO SCH (20:42)
[2020-07-07 05:10] VITALS: O2SAT 96
[2020-07-07 05:31] LABS: Phosphorus 2.4 mg/dL (2.5-4.9); Potassium 3.4 mmol/L (3.5-5.1)
[2020-07-07] MEDS: INSULIN -REGULAR HUMAN 50 UNIT/0.5 ML ML SQ SCH ×4 (07:30→16:06)
[2020-07-07] MEDS: HYDROMORPHONE HCL 0.5 MG/0.5 ML INJ IV PRN ×3 (09:06→18:48)
[2020-07-07] MEDS: POLYETHYL GLY 3350 17 GM/DOSE PO SCH (09:09)
[2020-07-07] MEDS: CALCITROL 0.25 MCG CAP PO SCH (09:10)
[2020-07-07] MEDS: COENZYME Q10- 200 MG CAP PO SCH (09:10)
[2020-07-07] MEDS: GABAPENTIN 100 MG CAP PO SCH (09:10)
[2020-07-07] MEDS: DOCUSATE NA 100 MG CAP PO SCH (09:11)
[2020-07-07] MEDS: MULTIVITAMINS,THERAPEUT 1 TAB PO SCH (09:11)
[2020-07-07] MEDS: VITAMIN D 5,000 UNIT CAP PO SCH (09:11)
[2020-07-07] MEDS: SEVELAMER CARBONATE 800 MG TABLET PO SCH ×3 (09:11→16:06)
[2020-07-07] MEDS: NEPRO SHAKE 237 ML CAN PO SCH (09:13)
[2020-07-07] MEDS: COLLAGENASE 30 GM OINTMENT TOP SCH (09:13)
--- NOTE | 2020-07-07 10:48 | PN ---
Subjective: The patient is awake and alert. Vitals are stable. She is afebrile. The white count y was 11.9. Microbiology, sensitivities still pending. Dressing is clean, dry and intact. Assessment: Osteomyelitis with sacral decubitus; end-stage renal disease; mental status, change impr oving. Recommendations: Continue antibiotics and wound care as ordered. Discharge planning and in fact, e patient can follow up [facility] upon discharge. Re-consult p.magdalena TOVAR/LANRE Voice ID: [id number] Report ID: [id number]
--- NOTE | 2020-07-07 15:51 | P.DS ---
Admission Date: 07/01/20 Discharge Date: 07/07/20 Disposition: [facility] Discharge Condition: FAIR Reason for Admission: sacrum osteomyelitis, intractable pain Consultations: Renal-Dr. Badillo Infectious Disease-Dr. Celis General Surgery-Dr. Almodovar. - Problems (1) Osteomyelitis Current Visit: Yes Status: Acute (2) Hx of kidney transplant Current Visit: No Status: Acute (3) Metabolic encephalopathy Current Visit: No Status: Acute (4) Pressure ulcer of sacral region, stage 3 Current Visit: No Status: Acute (5) ESRD (end stage renal disease) on dialysis Onset Date: 06/17/17 Current Visit: No Status: Chronic (6) HTN (hypertension) Onset Date: 06/17/17 Current Visit: No Status: Chronic Qualifiers: Hypertension type: essential hypertension (7) Type 1 diabetes mellitus on insulin therapy Onset Date: 06/27/18 Current Visit: No Status: Chronic Brief History of Present Illness: 65-year-old woman with a history of end-stage renal disease on hemodialysis, history of kidney transplant common decubitus ulcer of the lower back and buttocks, was brought to the emergency department because of increasing pain in the back. CT scan done suggested spinal stenosis on sacral osteomyelitis. Patient noted to have leukocytosis, hemoglobin of 8.2. COVID screen negative. She was admitted for further management. Hospital Course: Sacral decubitus ulcer stage 3 Sacral osteomyelitis Metabolic vs Toxic encephalopathy acute on chronic malnutrition - general surgery consulted for wound care /debridement. Local wound care recommended. - patient treated with Vanc and Meropenem. Anaerobic blood culture growing Bacteroides fragilis - should be covered by meropenem. -patient seen by infectious disease, and vancomycin discontinued. -patient is planned for 6 weeks of IV antibiotics for sacral osteomyelitis. -repeat blood culture shows no growth - CRP trended down. - she had metabolic encephalopathy secondary to a combination of infection and uremia. Patient is more awake and interactive. Encephalopathy resolved. -she is on hydromorphone p.r.n. for pain. -she is feeding well. -infectious disease consulted. Back pain -lumbar MRI with mod-severe bilateral foraminal stenosis at l5-s1. no cauda equina involvement. pain possibly a component of radicular pain, unclear. -Dilaudid to 0.25mg PRN. ESRD on HD, COPD, IDDM, HTN -seen by nephrology -routine hemodialysis per nephrology. -SSI, accuchecks -patient is hypertensive today. -BP meds resumed on discharge. Held losartan but can be continued for discharge if she is persistently hypertensive. Patient accepted to [facility]. She is clinically stable for transfer. Vital Signs/Physical Exam: Temp Pulse Resp BP Pulse Ox 96.6 F L 72 18 151/63 H 98 07/07/20 12:00 07/07/20 12:00 07/07/20 14:05 07/07/20 12:00 07/07/20 14:05 General: Alert, In no apparent distress HEENT: Mucous membr. moist/pink Respiratory: Clear to auscultation bilaterally, Normal air movement Cardiovascular: No edema, Regular rate/rhythm, Normal S1 S2 Gastrointestinal: Soft and benign, Non-distended Musculoskeletal: No swelling Integumentary: Other (Tunneled mid sacral Decubitus ulcer-packed.) Neurological: Other (No focal motor deficit.) Laboratory Data at Discharge: WBC 11.90 K/uL (4.3-10.9) H D 07/06/20 04:01 Hgb 10.7 g/dL (12.0-15.0) L 07/06/20 04:01 Hct 31.1 % (36.0-45.0) L 07/06/20 04:01 Plt Count 272 K/uL (152-406) 07/06/20 04:01 Sodium 138 mmol/L (136-145) 07/07/20 04:25 Potassium 3.4 mmol/L (3.5-5.1) L 07/07/20 04:25 BUN 36 mg/dL (7-18) H 07/07/20 04:25 Creatinine 2.51 mg/dL (0.55-1.3) H D 07/07/20 04:25 Glucose 183 mg/dL (74-106) H 07/07/20 04:25 Phosphorus 2.4 mg/dL (2.5-4.9) L 07/07/20 04:25 Magnesium 2.3 mg/dL (1.8-2.4) 07/05/20 04:18 Total Bilirubin 0.8 mg/dL (0.2-1.0) 07/05/20 04:18 AST 23 U/L (15-37) 07/05/20 04:18 ALT 14 U/L (12-78) 07/05/20 04:18 Alkaline Phosphatase 155 U/L (45-117) H 07/05/20 04:18 Home Medications: Ascorbic Acid [Vitamin C*] 1,000 mg PO DAILY 09/30/14 Isosorbide Mononitrate [Isosorbide Mononitrate ER] 120 mg PO BEDTIME 09/30/14 Levothyroxine [Synthroid*] 0.075 mcg PO BID 09/30/14 Pravastatin Sodium [Pravachol] 20 mg PO BEDTIME 09/30/14 carvediloL [Coreg*] 25 mg PO BID 09/30/14 Esomeprazole Magnesium 40 mg PO DAILY 06/14/17 Liothyronine Sodium [Cytomel] 5 mcg PO BID 06/14/17 Folic Acid/Vit B Complex and C [Judy-Karl Tablet] 0.8 mg PO DAILY 07/02/20 Pyridoxine [Vitamin B-6*] 100 mg PO DAILY 07/02/20 Calcitrol [Rocaltrol*] 0.5 mcg PO DAILY cap 07/07/20 Cholecalciferol (Vitamin D3) [Vitamin D 5,000 IU Cap*] 5,000 unit PO DAILY cap 07/07/20 Collagenase [Santyl Ointment*] 1 appl TOP DAILY tube 07/07/20 Docusate [Colace Cap*] 100 mg PO BID cap 07/07/20 Epoetin [Retacrit] 10,000 unit IV EVERY HD vial 07/07/20 Gabapentin [Neurontin*] 200 mg PO BID cap 07/07/20 Heparin [Heparin 1,000 units/mL *] 3,000 unit IV EVERY HD PRN vial 07/07/20 Hydromorphone [Dilaudid] 0.25 mg IV Q6H PRN syr 07/07/20 Insulin -Regular Human [Novolin -R*] See Protocol SQ ACHS ml 07/07/20 Mannitol 25% [Mannitol*] 12.5 gm IV EVERY HD PRN vial 07/07/20 Meropenem [Merrem 1 GM/100 ML NS IVPB] 1 gm IV DAILY #35 bag 07/07/20 Nepro Shake [Nepro*] 237 ml PO BID can 07/07/20 Polyethyl Gly 3350 [Glycolax*] 17 gm PO BID udbot 07/07/20 Sevelamer Carbonate [Renvela*] 800 mg PO TIDWM tablet 07/07/20 Ubidecarenone [Coenzyme Q10*] 200 mg PO DAILY cap 07/07/20 New Medications: Meropenem [Merrem 1 GM/100 ML NS IVPB] 1 gm IV DAILY #35 bag Diet: Renal Activity: Fall precautions Followup: Stephen Celis MD [ACTIVE - CAN ADMIT] - Time spent managing pt's care (in minutes): 42
[2020-07-07 17:22] VITALS: BP 126/58; TEMP 97
--- NOTE | 2020-07-07 18:06 | PN ---
Date of Progress Note: 07/07/2020 Subjective: The patient was seen and examined. She is much more alert and awake today. Physical Examination: Vital Signs: Have been reviewed and are stable. General: She appears in no acute distress. Lungs: Clear to auscultation. Abdomen: Soft and nontender. Extremities: Showed no evidence of edema. Laboratory Data: Has been reviewed in detail. Medications: Have been reviewed. Impression: 1.End-stage renal disease, on dialysis. 2.Sacral decubitus ulcer. 3.Anemia secondary to renal failure. 4.Hypertension. 5.History of breast cancer. 6.Type 2 insulin-dependent diabetes. Plan: The patient is doing okay at this time. She is getting Saturday, Saturday, Saturday dialysis; wo und care and antibiotics for her infection of her sacral decubitus ulcer. She is status post debride ment. Local wound care recommended. Continue vancomycin and meropenem, Dilaudid p.r.n. for pain and continue Saturday, Saturday, Saturday dialysis and anemia being monitored closely. Continue protein sh akes for her malnutrition and we will follow up. VV/MODL Voice ID: [id number] Report ID: [id number]
== END 2020-07-07 19:26 | DRG 637 ==
LOC: ER 10:38 → ERHOLD 16:57 → 2ND 19:40
PROVIDERS: ADMIT Hospitalist; ATTEND Internal Medicine
PROC: 5A1D70Z Performance of Urinary Filtration, Intermittent, Less than 6 Hours Per Day (ICD-10-PCS; principal; 2020-07-02)
PROC: 30233N1 Transfusion of Nonautologous Red Blood Cells into Peripheral Vein, Percutaneous Approach (ICD-10-PCS; 2020-07-02)
DX: E10.69 Type 1 diabetes mellitus with other specified complication (principal); L89.153 Pressure ulcer of sacral region, stage 3; M46.28 Osteomyelitis of vertebra, sacral and sacrococcygeal region; Z94.0 Kidney transplant status; I50.32 Chronic diastolic (congestive) heart failure; I13.2 Hypertensive heart and chronic kidney disease with heart failure and with stage 5 chronic kidney disease, or end stage renal disease; E44.0 Moderate protein-calorie malnutrition; N18.6 End stage renal disease; G92 Toxic encephalopathy; N25.81 Secondary hyperparathyroidism of renal origin; E10.22 Type 1 diabetes mellitus with diabetic chronic kidney disease; E10.42 Type 1 diabetes mellitus with diabetic polyneuropathy; M48.08 Spinal stenosis, sacral and sacrococcygeal region; M54.18 Radiculopathy, sacral and sacrococcygeal region; D63.1 Anemia in chronic kidney disease; E03.9 Hypothyroidism, unspecified; N25.0 Renal osteodystrophy; K59.00 Constipation, unspecified; J44.9 Chronic obstructive pulmonary disease, unspecified; Z68.20 Body mass index [BMI] 20.0-20.9, adult; Z88.0 Allergy status to penicillin; Z79.890 Hormone replacement therapy; Z79.899 Other long term (current) drug therapy; Z99.2 Dependence on renal dialysis; Z79.4 Long term (current) use of insulin; Z90.10 Acquired absence of unspecified breast and nipple; Z95.1 Presence of aortocoronary bypass graft; Z20.822 Contact with and (suspected) exposure to COVID-19
CPT/HCPCS: 36415; 70450; 72131; 72148; 72195; 80048; 80053; 80069; 80076; 80202; 82140; 82947; 83735; 84100; 84145; 85014; 85018; 85025; 85027; 85652; 86140; 86850; 86900; 86901; 86922; 87040; 87070; 87205; 90935; 96365; 96366; 96375; 99285; J1170; J1644; J2185; J3010; J3370; J3486; J3590; P9016; P9047; Q5106; U0003

== ENCOUNTER 2020-08-05 22:25 | Inpatient (IN) | payer OTHER ==
--- OUTSIDE RECORDS SUMMARY | 2020-08-05 22:31 | XMS REPORT | Continuity of Care Document ---
:1955 Author Organization [facility] t Address [address] [place] [address] [place] [address] Care Team Providers Name Role Phone Melchor Lennon MD Primary Care Physician Quincy GARCIA, Nikolay Attending Clinician Yessi GARCIA, L Attending Clinician Bryant CHAMPION Attending Clinician Unavailable David GARCIA, Y. Attending Clinician Mercedes Granados MD Attending Clinician Billie Gonsales MD Attending Clinician [phone] Mike GARCIA Attending Clinician Mercedes GRANADOS Attending Clinician Unavailable Thao GARCIA, Viviana Attending Clinician Sree MARQUIS Attending Clinician Unavailable Ismael Attending Clinician Valeria Ward Attending Clinician Ene Mendoza Attending Clinician Mercedes GRANADOS Admitting Clinician Unavailable Sree MARQUIS Admitting Clinician Unavailable Ismael Admitting Clinician Payers Payer Name Policy Type Policy Effective Date Expiration Date Sour ce Number MEDICAREMEDICARE PART [id number] 2004 Mitchell Shaffer AND 00:00:00 Scientologist [id number] 2004[place] [id number] 2016 Eng [id number] 00:00:00 Met [place] /2016-Yuriy fierro MEDICAREMEDICARE A [id number] 2004 ALDA Sloan [id number] 2004- 00:00:00 - M edical PresentMedicare Center OTHER-COMMERCIALGENER [id number] 2018 ALDA Becker IC 00:00:00 - Medical [id number]/ Iain ter -Present Problems Condition Condition Condition Status Onset Resolution Last Treating Co mments Source Name Details Category Date Date Treatment Clinician Date S/P S/P Disease Active [facility] femoral-po femoral-po 06-29 Assessmen Methodi pliteal pliteal [...] aneurysm aneurysm 00 HTN HTN Disease Active [place] (hypertens (hypertens 01-07 [place] thodi ion), ion), 00:00: st malignant malignant 00 End stage End stage Disease Active Damaris ston renal renal 01-07 Methodi disease disease 00:00: st 00 Diabetes Diabetes Disease Active [place] mellitus mellitus 01-07 Method i 00:00: st 00 BREAST Diagnosis Active 2016-11-10 Mem oria IMPLANT 11-10 02:25:00 l HEMATOMA BREAST 00:00: [place] n IMPLANT 00 HEMATOMA Active 11/10/2016 [facility] POSTTRAMAT Diagnosis Active 2017-04-02 Memoria IC 11-10 21:52:00 l HEMATOMA 00:00: [place] OF LEFT POSTTRAMAT 00 BREST IC HEMATOMA OF LEFT BREST Active 11/10/2016 [facility] [id number], Diagnosis Active 2016-10-09 Memoria [id number] 05:36:00 l HISTORYOF 00:00: [place] BREAST 35629-33, 00 AUGME 73927-7 HISTORYOF BREAST AUGME Active 09/13/2016 [facility] Absence of Problem Resolve 2016-11-14 Memoria breast d 00:20:34 l (finding) Absence Herm priya of breast (finding) Resolved Problem 11/14/2016 [facility] Malignant Problem Resolve 2016-11-14 M emoria tumor of d 00:20:34 l breast [place] (disorder) Malignant tumor of breast (disorder) Resolved Problem 11/14/2016 [facility] End Stage Problem Active 2012-11-18 Me moria Renal 02:06:24 l Disease End [place] Stage Renal Disease Active [facility] Diabetes Problem Active 2012-11-18 Mem oria Mellitus 02:06:24 l With Diabetes Dennis n Complicati Mellitus on With Complicati on Active 11/18/2012 [facility] Chronic Problem Active 2012-11-18 Johnnie ena Kidney 02:06:24 l Disease Chronic [place] n With Kidney Malignant Disease Hypertensi With on Malignant Hypertensi on Active 11/18/2012 [facility] Disease of Problem Active 2016-11-14 M emoria thyroid 00:20:34 l gland Disease [place] (disorder) of thyroid gland (disorder) Active Problem 11/14/2016 [facility] End stage Problem Active 2016-11-14 Me moria renal 00:20:34 l disease on End [place] n dialysis stage due to renal type 1 disease on diabetes dialysis mellitus due to (disorder) type 1 diabetes mellitus (disorder) Active Problem 11/14/2016 [facility] Hypertensi Problem Active 2016-11-14 M emoria ve 00:20:34 l disorder, [place] systemic Hypertensi arterial ve (disorder) disorder, systemic arterial (disorder) Active Problem 11/14/2016 [facility] ILLNESS, Diagnosis Active 2016-11-10 M emoria UNSPECIFIE 03:17:00 l D ILLNESS, [place] n UNSPECIFIE D Active [facility] CONTUSION Diagnosis Active 2017-04-02 Memoria OF LEFT 21:52:00 l BREAST, [place] INITIAL CONTUSION ENCOUN OF LEFT BREAST, INITIAL ENCOUN Active [facility] Allergies, Adverse Reactions, Alerts Allergy Allergy Status Severity Reaction(s) Onset Inactive Treating Comm ents Source Name Type Date Date Clinician Penicill Propensi Active Hives, Rash [facility]07 [facility] adverse [facility] Medical reaction 00 Center s Penicill Propensi Active [place] ins ty to 01-07 [facility] adverse 00:00: st reaction 00 s to drug Penicill Penicill Active Memori a ins ins l [place] penicill penicill Active Memori a ins ins l [place] Family History Family Member Diagnosis Comments Start Date Stop Date Source Natural mother Thyroid disease [place] Scientologist Natural mother Hypertension [facility] Natural sister Hypertension [facility] Natural father Heart attack [facility] Unknown Family Family History 2012-11-18 2012-11-18 Memori al [place] Member 02:06:24 02:06:24 Social History Social Habit Start Date Stop Date Quantity Comments Source Sex Assigned At [facility] ethodi History SDOH [facility] Std Drinks Medica l Center History SDOH [facility] - Alcohol Binge Medical Iain ter Tobacco use and 2020-06-29 2020-06-29 Never used [facility] ethodist exposure 00:00:00 00:00:00 Alcohol intake 2020-06-29 2020-06-29 Current [facility] thodist 00:00:00 00:00:00 non-drinker of alcohol (finding) History SDOH 2018-07-08 2018-07-[address] [facility] - Alcohol Frequency 00:00:00 00:00:00 [facility] Social History 2016-11-10 2016-11-10 [facility] 08:47:45 08:47:45 History of tobacco 2003-05-06 Current smoker [facility] Smoking Status Start Date Stop Date Source Never smoker [facility] Former smoker 2020-05-11 00:00:00 2020-05-11 00:00:[address] [facility] [facility] Medications Ordered Filled Start Stop Current Ordering Indication Dosage Frequency Signature Comments Components Source Medication Medication Date Date Medication? Clinician (SIG) Name Name ascorbic 2019-06 Yes 1000mg QD Take 1,[address] acid, 2-01 mg by [facility] - vitamin C, 14:24: mouth Medica l (VITAMIN C) 27 daily. Center 1000 MG tablet atropine 2019-06 Yes 1[drp] Q.46036486 [address] [facility] (ISOPTO) 1 2- [id number] (three) [facility] - % 14:24: 3D times Medical ophthalmic 27 daily. [facility] solution b complex 2019-06 Yes 1{tbl} QD Take [address] vitamins 2-01 tablet by [facility] - tablet 14:24: mouth Medical 27 daily. [facility] biotin 1 mg 2019-06 Yes Take by [facility] Cap 2-01 mouth. [facility] - 14:24: Medical 27 [facility] carvedilol 2019-06 Yes 25mg Take [address] (COREG) 25 2-01 by mouth 2 Fady es - MG tablet 14:24: (two) Medical 27 times Center daily with breakfast and dinner. cholecalcif 2019-06 Yes 5000U QD Take 5,[address] charlie, 2-01 Units by [facility] - vitamin D3, 14:24: mouth Medic al 5,000 unit 27 daily. [facility] Tab esomeprazol 2019-06 Yes 40mg QD Take [address] e (NEXIUM) 2-01 by mouth [facility] - 40 MG 14:24: daily. Medical capsule 27 [facility] hydrALAZINE 2019-06 Yes 100mg Q.5D Take [address] (APRESOLINE 2-01 mg by [facility] - ) 100 MG 14:24: mouth 2 Medica l tablet 27 (two) Center times daily. isosorbide 2019-06 Yes 60mg QD Take [address] mononitrate 2-01 by mouth Luke s - (IMDUR) 60 14:24: daily. Medic al MG 24 hr 27 [facility] tablet levothyroxi 2019-06 Yes 75ug Take [address] ne 2-01 mcg by [facility]ukes - (SYNTHROID, 14:24: mouth Medic al LEVOTHROID) 27 Every Center 75 MCG morning on tablet an empty stomach. liothyronin 2019-06 Yes 5ug QD Take [address] e (CYTOMEL) 2-01 by mouth Luke s - 5 MCG 14:24: daily. Medical tablet 27 [facility] losartan 2019-06 Yes 50mg QD Take [address] (COZAAR) 50 2-01 by mouth Luke s - MG tablet 14:24: daily. Medica l 27 [facility] loteprednol 2019-06 Yes 1[drp] Q.25D [address] (LOTEMAX) 2-01 (four) [facility]ukes - 0.5 % 14:24: times Medical ophthalmic 27 daily. Center suspension moxifloxaci 2019-06 Yes 1[drp] Q.[id number] [address] n (VIGAMOX) 2- [id number] (three) [facility]ukes - 0.5 % 14:24: 3D times Medical ophthalmic 27 daily. Center solution NIFEdipine 2019-06 Yes 90mg QD Take [address] (ADALAT CC) 2- by mouth Luke s - 90 MG 24 hr 14:24: daily. Medi latisha tablet 27 [facility] insulin 2019-[address] aspart 2- subcutaneo Lukes - U-100 14:24: usly 3 Medical (NOVOLOG) 27 (three) Center 100 unit/mL times InPn daily with meals. omega 2019-06 Yes Take by [facility] 3-dha-epa-f 2- mouth. [facility]ukes - liliana oil 14:24: Medical (FISH OIL) [address] [place] [address] 100-160-1,0 00 mg Cap pravastatin 2019-06 Yes 20mg QD Take [address] (PRAVACHOL) - by mouth Luke s - 20 MG 14:24: daily. Medical tablet 27 [facility] prednisoLON 2019-06 Yes 1[drp] Q.25D [address] E acetate 2-01 (four) [facility]ukes - (PRED 14:24: times Medical FORTE) 1 % 27 daily. [facility] ophthalmic suspension timolol 2019-06 Yes 1[drp] Q.5D [address] (TIMOPTIC) 2- (two) Lukes - 0.5 % 14:24: times Medical ophthalmic 27 daily. [facility] solution tobramycin 2019-06 Yes Q.85223725 3 (three) [facility] (TOBREX) 2- [id number] times Luke s - 0.3 % 14:24: 3D daily. Medical ophthalmic 27 [facility] ointment traMADol 2019-06 Yes 50mg Take [address] (ULTRAM) 50 2- by mouth Luke s - mg tablet 14:24: every 6 Medic al 27 (six) Center hours as needed for Pain. pyridoxine, 2019-06 Yes 25mg QD Take [address] vitamin B6, 2-01 by mouth Luke s - (B-6) 25 MG 14:24: daily. Medi latisha tablet 27 Center folic 2019-06 Yes Take by [facility] acid/vit B 2- mouth. [facility] - complex and 14:24: Medica l C 27 Center (ANNE MARIE-RAGHU ORAL) doxazosin 2019-06 Yes 1mg QD Take [address] (CARDURA) 1 2- by mouth Luke s - MG tablet 14:24: nightly. Medi latisha 27 [facility] moxifloxaci 2019-06 2020- No 1[drp] Q.04442550 Place [address] n (VIGAMOX) 205-20 [id number] drop into [facility]ukes - 0.5 % 00:00: 23:59 3D the right Medica l ophthalmic 00 :00 eye 3 Center solution (three) times daily for 10 days. pantoprazol 2019-06- No 40mg QD Take [address] e 07-09-30 by mouth [facility]ukes - (PROTONIX) 09:52: 00:00 daily. Medi latisha 40 MG 31 :00 [facility] tablet multivitami 2019-06 2020- No 1{capsu QD Take [address] n capsule 07-09- le} capsule by Fady es - 09:52: 00:00 mouth Medical 21 :00 daily. [facility] hydrOXYzine 2019-06- No 10mg Take [address] (ATARAX) 10 07-09- by mouth 3 L ukes - MG tablet 09:52: 00:00 (three) Medi latisha 05 :00 times Center daily as needed for Itching. ferrous 2019-06 2020- No 325mg Take [address] sulfate 325 -30 -30 mg by [facility]ukes - (65 FE) MG 09:51: 00:00 mouth Medic al tablet 53 :00 daily with Center breakfast. clonidine 2019-06- No Take by [facility] HCl -30 -30 mouth. [facility]ukes - (CATAPRES 09:51: 00:00 Medical ORAL) 47 :00 Center Missing or 2019-06- No 40mg/d 40 mg/day. [facility] Non-Formula 1-30 -30 [facility]ukes - ry 09:51: 00:00 Medical Medication 25 :00 [facility] apixaban 2019-06 2020- No 2.5mg Q.5D Take 2.[address] [...] ton COMPLEX VIT 9-11 tablet by Met apple Lieberman NO.4 08:56: mouth st (SUPER B 09 [...] times a 24 hr day. tablet losartan Yes 50mg Q.5D Take 50 mg Damaris [...] MG 08:56: daily. st tablet 09 levothyroxi 2017-0 Yes 75ug QD Take 75 Damaris ston ne 9-11 mcg by Methodi (SYNTHROID) 08:56: mouth st 75 mcg 09 every tablet morning. sevelamer 2017-0 Yes 800mg Q.[id number] Take 800 Eng (RENVELA) 9-11 [id number] mg by Met hodi 800 mg 08:56: 3D mouth 3 st tablet 09 (three) times a day with meals. UNABLE TO 2016-0 Yes Med Name: Damaris alberto FIND 9-11 Novalog Methodi 08:56: Insulin st 09 Pump [...] 0 Refill(s) Pravastatin No Notes: Johnnie ena 6-04 (Same as: l 02:00: Pravachol) Isosorbide No Notes: Memor ia 6-04 (Same l 02:00: as:Imdur) Do not crush Cleocin HCl No Notes: Johnnie ena + sodium 11-11 (clindamyc l chloride 01:00: in 150 [place] 0.9% INJ 50 00 mg/1 ml mL (600 mg/4 ml VL) INJ) (Same As: Cleocin) Protonix No Notes: Memoria 6-03 Tablet l 21:30: should not [place] 00 be chewed or crushed. (Same as: Protonix) Morphine No Notes: Memoria 11-10 (Same l 21:04: as:MORPhin [place] 00 e Sulfate) Acetaminoph No Notes: Johnnie ena en 325 MG / 11-10 Same as l Hydrocodone 21:03: [place] nn Bitartrate 00 325-7.5mg 7.5 MG Oral Do not Tablet exceed 4gm/day of acetaminop hen. ondansetron No Route: IV, Memoria (ANES) 11-10 Drug form: l 17:56: INJ, ONCE, [place] Stop date: 11/10/16 12:56:00 CDT acetaminoph No Route: IV, Memoria en (ANES) 11-10 Drug form: l 17:26: INJ, ONCE, [place] Stop date: 11/10/16 12:26:00 CDT famotidine No Route: IV, M emoria (ANES) 11-10 Drug form: l 17:26: INJ, ONCE, [place] Stop date: 11/10/16 12:26:00 CDT Cleocin No Route: IV, Johnnie ena Phosphate 11-10 Drug form: l (ANES) + 17:21: INJ, ONCE, Her durán sodium Stop date: chloride 11/10/16 0.9% 100 ml 12:21:00 INJ (ANES) CDT ePHEDrine No Route: IV, Me moria (ANES) 11-10 Drug form: l 17:21: INJ, ONCE, [place] Stop date: 11/10/16 12:21:00 CDT fentaNYL No Route: IV, Mem oria (ANES) 11-10 Drug form: l 17:21: INJ, ONCE, [place] Stop date: 11/10/16 12:21:00 CDT propofol No [...] 17:11: Narcan Flumazenil No Notes: Memor ia 11-10 (Same as: l 17:11: Romazicon) Morphine No Notes: Memoria 6-03 (Same l 17:11: as:MORPhin e Sulfate) Hydromorpho No Notes: Johnnie ena ne 03 Same as l 17:11: Dilaudid Meperidine No Notes: Memor ia 6-03 (Same as: l 17:11: Demerol) "Use Precaution in Elderly, Seizure disorders, and Renal impairment " Ondansetron No Notes: Johnnie ena - (Same as: l 17:11: Zofran) MEDICATION WASTE [...] 12/09/16 9:00:00 CDT Coreg No Notes: Memoria 6-03 Give with l 14:00: food. Ray[place] 00 (Same As: Coreg) Renvela No Notes: Memoria 6- Same as: l 13:00: Renvela Synthroid No [...] Route: IV, l 0.9% IV 08:07: Start [place] 00 date: 11/10/16 3:07:00 CDT, Duration: 30 day, Stop date: 12/10/16 3:06:00 CDT, PRN Line Flush BD Normal No Notes: Memori a Saline - (Same as: l Flush 08:07: BD Posiflush) Acetaminoph No Notes: Johnnie ena en 325 MG / 11-10 (Same as: l Hydrocodone 07:57: [place] Marichuy nn Bitartrate 00 325/5) Do 5 MG Oral not exceed Tablet 4gm/day of acetaminop hen. Morphine No Notes: Memoria - (Same l 07:57: as:MORPhin e Sulfate) Acetaminoph No Notes: Do M emoria en - not exceed l 07:57: 4 gm/day. (Same as: Tylenol) Ondansetron No Notes: Johnnie ena - (Same as: l 07:57: Zofran) MEDICATION WASTE Product Size: 4 mg Product Wasted: ___ mg hydrALAZINE Yes 100mg Q.5D Take 100 [place] (APRESOLINE 5-31 mg by Methodi ) 100 MG 00:00: mouth 2 st tablet 00 (two) times a day. ondansetron No Route: IV, Memoria (ANES) - Drug form: l 21:09: INJ, ONCE, Stop date: 10/09/16 16:09:00 CDT fentaNYL No Route: IV, Mem oria (ANES) - Drug form: l 21:09: INJ, ONCE, Stop date: 10/09/16 16:09:00 CDT EPINEPHrine No Route: IV, Memoria (ANES) - Drug form: l 19:53: INJ, ONCE, Stop date: 10/09/16 14:53:00 CDT midazolam No Route: IV, Me moria (ANES) - Drug form: l 19:43: SOLN, ONCE, Stop date: 10/09/16 14:43:00 CDT lidocaine No Route: IV, Me moria (ANES) - Drug form: l 19:43: INJ, ONCE, Stop date: 10/09/16 14:43:00 CDT Cleocin No Route: IV, Johnnie ena Phosphate 10-09 Drug form: l (ANES) 19:32: INJ, ONCE, [place]ichuy Stop date: 10/09/16 14:32:00 CDT dexamethaso No Route: IV, Memoria ne (ANES) 10-09 Drug form: l 19:27: INJ, ONCE, Stop date: 10/09/16 14:27:00 CDT propofol No Route: IV, Mem oria (ANES) - Drug form: l 19:27: INJ, ONCE, Stop date: 10/09/16 14:27:00 CDT ePHEDrine No Route: IV, Me moria (ANES) - Drug form: l 19:27: INJ, ONCE, Stop date: 10/09/16 14:27:00 CDT fentaNYL No Route: IV, Mem oria (ANES) - Drug form: l 19:27: INJ, ONCE, Stop date: 10/09/16 14:27:00 CDT sodium No Route: IV, Memor ia chloride 10-09 Total l 0.9% 1000 18:22: Volume: Marichuy nn ml INJ 00 1,000, (ANES) Start date: 10/09/16 13:22:00 CDT, Stop date: 10/09/16 14:22:00 CDT Exparel Yes Notes: Memoria - (Same as: l 17:46: Exparel) [place] 00 NOT FOR IV use Postoperat cristian analgesia: [...] (total dose = 30 mL [266 mg]) Lorazepam No 0.5 mg, Memor ia 10-09 Route: l 17:41: IVP, [place] 00 Q20Min, Dosing Weight 55.483, kg, PRN Anxiety, Start date: 10/09/16 12:41:00 CDT, Duration: 3 doses or times, Stop date: Limited # of times 72 HR Yes Notes: Memoria Scopolamine 10-09 Change l 0.0139 17:41: patch Ray[place] MG/HR 00 every 72 Transdermal hours Patch (Same as: Transderm- Scop) Ondansetron No 4 mg, Memor ia 10-09 Route: l 17:41: IVP, ONCE, [place] 00 Dosing Weight 55.483, kg, PRN Nausea [...] Stop date: 11/08/16 12:40:00 CDT 200 ACTUAT 2016-0 Yes Notes: Memor ia Albuterol 10-09 Albuterol l 0.09 17:41: 90 [place] MG/ACTUAT 00 microgram/ Metered inh 8gm Dose HFA Inhaler WASTE: Aerosol - Return to Pharmacy Same as: Fozia Mosley Morphine 2016-0 No 2 mg, Memoria 10-09 Route: l [...] oria ine 10-09 Route: l 17:41: NEB, [place] 00 Dosing Weight 55.483, kg, PRN, PRN Shortness of breath, Start date: 10/09/16 12:41:00 CDT, Duration: 30 day, Stop date: 11/08/16 12:40:00 CDT Flumazenil 2016-0 No 0.2 mg, Johnnie ena 10-09 Route: l 17:41: IVP, PRN, [place] 00 Dosing Weight 55.483, kg, PRN Benzodiaze pine Reversal, Initial dose, Start date: 10/09/16 12:41:00 CDT, Duration: 30 day, Stop date: 11/08/16 12:40:00 CDT Ephedrine 2017-0 No 5 mg, Memoria 10-09 Route: l 17:41: IVP, [place] 00 Q5Min, Dosing Weight 55.483, kg, PRN Low Blood Pressure, Start date: 10/09/16 12:41:00 CDT, Duration: 30 day, Stop date: 11/08/16 12:40:00 CDT Naloxone 2017-0 No 0.4 mg, Memori a 10-09 Route: l 17:41: IVP, [place] 00 Q2MIN, Dosing Weight 55.483, kg, PRN Narcotic Reversal, Start date: 10/09/16 12:41:00 CDT, Duration: 8 doses or times, Stop date: Limited # of times Ketorolac 2017-0 Yes 4 days Memor ia 10-09 l 17:41: MEDICATION [place] 00 WASTE Product Size: 30 mg Product Wasted: 15 mg Acetaminoph 2016-0 No 1,000 mg, M emoria en 10-09 Route: PO, l 17:41: Drug form: [place] 00 TAB, ONCE, Dosing Weight 55.483, kg, PRN Pain Score 1-3, Start date: 10/09/16 12:41:00 CDT, Duration: 1 doses or times, Stop date: Limited # of times esmolol 2016-0 No 10 mg, Memoria 10-09 Route: l 17:41: IVP, [place] 00 Q5Min, Dosing Weight 55.483, kg, PRN Other -See Comment, Start date: 10/09/16 12:41:00 CDT, Duration: 5 doses or times, Stop date: Limited # of times ANES 2017-0 No 0.625 mg, Memoria Enalaprilat 10-09 Route: l 17:41: IVP, [place] 00 Q5Min, Dosing Weight 55.483, kg, PRN [...] Stop date: Limited # of times Hydralazine 2017-0 No 10 mg, Johnnie ena 10-09 Route: l 17:41: IVP, [place] 00 Q20Min, Dosing Weight 55.483, kg, PRN Elevated BP, Start date: 10/09/16 12:41:00 CDT, Duration: 2 doses or times, Stop date: Limited # of times Hydromorpho 2017-0 No 0.5 mg, Mem oria ne 10-09 Route: l 17:41: IVP, [place] 00 Q5Min, Dosing Weight 55.483, kg, PRN Pain Score 7-10, Start date: 10/09/16 12:41:00 CDT, Duration: 4 doses or times, Stop date: Limited # of times Midazolam 2016-0 No 1 mg, Memoria 10-09 Route: l 17:41: IVP, [place] 00 Q5Min, Dosing Weight 55.483, kg, PRN Anxiety, Start date: 10/09/16 12:41:00 CDT, Duration: 2 doses or times, Stop date: Limited # of times Promethazin 2016-0 No 6.25 mg, Me moria e 10-09 Route: l 17:41: IVPB, [place] 00 ONCE, Dosing Weight 55.483, kg, PRN Nausea & Vomiting, Start date: 10/09/16 12:41:00 CDT Dexamethaso 2016-0 No 4 mg, Memor ia ne 10-09 Route: l 17:41: IVP, ONCE, [place] 00 Dosing Weight 55.483, kg, PRN Nausea & Vomiting, Start date: 10/09/16 12:41:00 CDT Clindamycin 2016-0 Yes Notes: Johnnie ena 10-09 (Same As: l 17:32: Cleocin) [place] 00 Sodium 2017-0 No 500 mL, Memoria Chloride 10-09 Route: IV, l 0.154 17:21: ONCE, [place] MEQ/ML 00 Dosing Injectable Weight Solution 55.483 kg, Start date: 10/09/16 12:21:00 CDT, Stop date: 10/09/16 12:21:00 CDT, [place] esomeprazol 2017 Yes 40mg Q.5D Take 40 mg Eng e (NexIUM) 4-25 by mouth 2 Met hodi 40 MG 00:00: (two) st capsule 00 times a day. NovoLog 2017 Yes See Memoria 4-19 Instructio l 19:29: ns, 0 [place] 00 Refill(s) sevelamer Yes 800 mg = [...] moria 5000 UNIT 6-11 l Oral 02:06: [place] Capsule 24 Multi For Yes (Active) Mem oria Her 50+ 6-11 l Oral 02:06: [place] Capsule 24 Pantoprazol Yes (Active) M emoria [...] Sodium 20 6-11 l MG Oral 02:06: [place] Tablet 24 Losartan Yes (Active) Johnnie ena Potassium 6-11 l 50 MG Oral 02:06: [place] Tablet 24 Renvela 800 Yes (Active) M emoria MG Oral 6-11 l Tablet 02:06: [place] 24 Cytomel 5 Yes (Active) Mem oria MCG Oral 6-11 l Tablet 02:06: [place] 24 Synthroid Yes (Active) Mem oria 75 [...] Blood Sugar 6-11 l Health 500 02:06: [place] MG Oral 24 Capsule Vitamin C Yes (Active) Mem oria 100 MG Oral 6-11 l Tablet 02:06: [place] Chewable 24 Vitamin B6 Yes (Active) Me moria 250 MG Oral 6-11 l Tablet 02:06: [place] 24 Iron 25 MG Yes (Active) Me moria TABS 6-11 l 02:06: [place] 24 Vitamin B12 Yes (Active) M emoria TABS 6-11 l 02:06: [place] 24 Topiramate Yes (Active) Me moria 25 MG Oral 6-11 l Tablet 02:06: Ray[place] 24 Vital Signs Vital Name Observation Time Observation Value Comments Source Systolic blood 2020-06-29 12:55:00 154 mm[Hg] [place] Scientologist pressure Diastolic blood 2020-06-29 12:55:00 63 mm[Hg] [place] Scientologist pressure Heart rate 2020-06-29 12:55:00 74 /min [place] [facility] Body height 2020-06-29 12:55:00 165.1 cm [place] Scient[facility] Body weight 2020-06-29 12:55:00 51.8 kg [place] Scientologist BMI 2020-06-29 12:55:00 19.00 kg/m2 [place] Scient[facility] Oxygen saturation in 2020-06-29 12:55:00 98 /min [place] Scientologist Arterial blood by Pulse oximetry Systolic blood 2020-05-10 12:40:00 117 mm[Hg] [facility] Diastolic blood 2020-05-10 12:40:00 49 mm[Hg] [facility] S t [facility] Heart rate 2020-05-10 12:40:00 75 /min [facility] Respiratory rate 2020-05-10 12:40:00 18 /min [facility] Oxygen saturation in 2020-05-10 12:40:00 95 /min [facility] - Arterial blood by Medical Ce nter Pulse oximetry Body temperature 2020-05-10 12:11:00 35.72 [facility] Body height 2020-05-06 16:32:00 167.6 cm [facility] Body weight 2020-05-06 16:32:00 53.978 kg [facility] BMI 2020-05-06 16:32:00 19.21 kg/m2 [facility] Respitory Rate 2016-11-11 12:12:00 Memori al [place] Systolic (mm Hg) 2016-11-11 12:12:00 Johnnie rial [place] Diastolic (mm Hg) 2016-11-11 12:12:00 Mem orial [place] Temperature Oral (F) 2016-11-11 12:12:00 98.3 F [facility] [place] Heart Rate 2016-11-11 12:12:00 [facility] [place] Temperature Oral (F) 2016-11-11 09:00:00 98.6 F [facility] [place] Respitory Rate 2016-11-11 09:00:00 Memori al [place] Heart Rate 2016-11-11 09:00:00 [facility] [place] Systolic (mm Hg) 2016-11-11 09:00:00 Johnnie rial [place] Diastolic (mm Hg) 2016-11-11 09:00:00 Mem orial [place] Heart Rate 2016-11-11 05:00:00 [facility] [place] Systolic (mm Hg) 2016-11-11 05:00:00 Johnnie rial [place] Diastolic (mm Hg) 2016-11-11 05:00:00 Mem orial [place] Respitory Rate 2016-11-11 05:00:00 Memori al [place] Temperature Oral (F) 2016-11-11 05:00:00 97.8 F [facility] [place] BMI Calculated 2016-11-10 08:39:00 Memori al [place] Weight 2016-11-10 08:39:00 [facility] [place] Height 2016-11-10 08:39:00 170.18 cm [facility] [place] Respitory Rate 2016-10-09 22:35:00 Memori al [place] Systolic (mm Hg) 2016-10-09 22:30:00 Johnnie rial [place] Diastolic (mm Hg) 2016-10-09 22:30:00 Mem orial [place] Respitory Rate 2016-10-09 22:30:00 Memori al [place] Systolic (mm Hg) 2016-10-09 22:00:00 Johnnie rial [place] Diastolic (mm Hg) 2016-10-09 22:00:00 Mem orial [place] Respitory Rate 2016-10-09 22:00:00 Memori al [place] Systolic (mm Hg) 2016-10-09 21:55:00 Johnnie rial [place] Diastolic (mm Hg) 2016-10-09 21:55:00 Mem orial [place] Heart Rate 2016-10-09 17:23:00 [facility] [place] BMI Calculated 2016-09-26 19:14:00 [facility] Height 2016-09-26 19:14:00 170.18 cm [facility] Weight 2016-09-26 19:14:00 [facility] Procedures Procedure Date / Time Performing Clinician Source Performed FUNGUS CULTURE 2020-05-10 21:41:00 Kathie Granados [facility] AEROBIC CULTURE 2020-05-10 21:41:00 Kathie Granados [facility] ANAEROBIC CULTURE 2020-05-10 21:41:00 Kathie Granados M ethodist TRANSPLANT,CORNEAL 2020-05-10 10:10:00 Kathie Granados [facility] CONSTRUCTION,INTERMARGIN 2020-05-10 10:10:[address] [facility] RECONSTRUCTION,OCULAR 2020-05-10 10:10[facility] AMNIOTIC MEMBRANE [facility] TRANSPLANT SURGICAL PATHOLOGY 2020-05-10 09:30:00 Kathie Granados Scientologist REQUEST BASIC METABOLIC PANEL 2020-05-10 08:00:00 Yessica Mckeon [facility] (7) [facility] Bilateral breast [facility] implants Bilateral mastectomy [facility] Creation of [facility] arteriovenous shunt or fistula for dialysis by external cannula Hysterectomy [facility] [place] Kidney transplant [facility] Nephrectomy [facility] [place] Removal of breast [facility] implant Vascular surgery [facility] procedure<sup>1</sup> Plan of Care Planned Activity Planned Date Details Comments Source Future Scheduled 2020-02-09 INFLUENZA VACCINE (#1) [facility] Test 00:00:00 [code = INFLUENZA Medical Ce nter VACCINE (#1)] Future Scheduled 2020-01-09 INFLUENZA VACCINE [place] [facility] Test 00:00:00 [code = INFLUENZA VACCINE] Future Scheduled 2019 PNEUMOCOCCAL 65+ Y[facility] Test 00:00:00 (1 of 1 - [facility] [id number]_Rcpvlpt PCV13) [code = PNEUMOCOCCAL 65+ YRS (1 of 1 - [id number]_Tqlonpn PCV13)] Future Scheduled 2019 65+ PNEUMOCOCCAL Eng Scientologist Test 00:00:00 VACCINE (1 of 1 - PPSV23) [code = 65+ PNEUMOCOCCAL VACCINE (1 of 1 - PPSV23)] Future Scheduled 2012-11-18 Plan of Care [code = Mem [facility] Test 02:06:24 83797-1] Future Scheduled 2012-09-25 Plan of Care [code = Mem [facility] Test 00:09:12 90612-5] Future Scheduled 2012-08-25 Plan of Care [code = [facility] Test 21:39:37 53355-3] Future Scheduled 2012-08-06 Plan of Care [code = [facility] [place] Test 22:03:58 33111-6] Future Scheduled 2012-08-04 Plan of Care [code = [facility] [place] Test 19:54:47 16048-7] Future Scheduled 2005-12-[address] [facility] Test 00:00:00 WELLNESS (YEAR 2 or [facility] FIRST YEAR if no IPPE) [code = MEDICARE ANNUAL WELLNESS (YEAR 2 or FIRST YEAR if no IPPE)] Future Scheduled 2004-02-15 [facility] S[facility]ENING [code = BREAST CANCER SCREENING] Future Scheduled 2004-02-15 COLONOSCOPY SCREENING [place] [facility] Test 00:00:00 [code = COLONOSCOPY SCREENING] Future Scheduled 2004-02-15 SHINGLES VACCINES (#1) [place] [facility] Test 00:00:00 [code = SHINGLES VACCINES (#1)] Future Scheduled 1970 COVID-19 VACCINE (1 of [place] [facility] Test 00:00:00 2) [code = COVID-19 VACCINE (1 of 2)] Future Scheduled 1964-02-15 DIABETES: RETINAL EYE [place] [facility] Test 00:00:00 EXAM [code = DIABETES: RETINAL EYE EXAM] Future Scheduled 1964-02-15 DIABETIC FOOT EXAM [place] Scientologist Test 00:00:00 [code = DIABETIC FOOT EXAM] Future Scheduled [address] Test 00:00:[address] [facility] breast (procedure) [code = 970486578] Future Scheduled [address] [facility] - Test 00:00:00 malignant neoplasm of [facility] colon (procedure) [code = 386406190] Encounters Start End Encounter Admission Attending Care Care Encounter Source Date/Time Date/Time Type Type Clinicians Facility Department ID 2020-06-29 2020-06-29 Outpatient [facility] [id number] [place] 00:00:00 00:00:00 SRIRAM 485 Method i 2020-06-29 2020-06-29 Outpatient [facility] [id number] [address] [place] [address] 00:00:00 00:00:00 SRIRAM 486 Method i 2020-06-29 2020-06-29 Outpatient [facility] [id number] [place] [address] 00:00:00 00:00:00 SRIRAM 487 Method i 2020-06-17 2020-06-17 Office Yessi [facility] [id number] 09:01:48 10:01:27 Visit [facility] [id number] Surgical [id number] Specialti [id number] es [address] [place] 2020-05-10 2020-05-10 Outpatient [facility] [id number] [address] [place] 00:00:00 00:00:00 KATHIE 968 Method i 2019-01-19 2019-01-19 Office WICHO [place] [id number] 13:06:45 13:21:45 Visit Yara [facility]BULATOR [id number] [facility] [id number] 2016-11-10 2016-11-11 [facility] [id number] 02:58:00 13:50:00 Randy 54 2016-10-09 2016-10-09 [facility] [id number] 05:34:00 17:50:00 Arash Bynum 2015-01-18 2015-01-18 Outpatient Kary [facility] [id number] 16:28:00 23:59:00 Misa galan 2012-11-17 2012-11-17 Outpatient 3 3 [id number] 1 21:06:45 21:06:24 2012-09-24 2012-09-24 Outpatient 3 3 [id number] 1 19:09:31 19:09:12 2012-08-25 2012-08-25 Outpatient 3 3 [id number] 16:39:55 16:39:37 2012-08-06 2012-08-06 Outpatient 3 3 [id number] 16:04:16 16:03:58 2012-08-04 2012-08-04 Outpatient 3 3 [id number] 13:55:06 13:54:47 Results Test Description Test Time Test Comments Results Result Comments Source Fungus culture 2020-06-08 00:15:46 Test Item Value Reference Range Interpretation Comme nts Fungus culture isolate No growth after 4 weeks of Specimen InformationSpecimen (test code = 1441) incubation. Source: E yeSpecimen [facility] [id number] 10:58:02 Test Item Value Reference Range Interpretation Comments Case number (test code = [id number]) Surgical pathology See link below for report (test code = PDF Lab Report [id number]) Result status (test code This is Final Report = [id number]) for [id number] [place] MethodistAnaerobic dduuwxb4637-50-27 08:20:35 Test Item Value Reference Range Interpretation Comments Anaerobic No anaerobic Specimen culture isolate organisms InformationS pecimen (test code = isolated. Source: [facility] Site: 552) [place] MethodistAerobic [id number] 07:18:01 Test Item Value Reference Range Interpretation Comments Aerobic culture No growth Specimen isolate (test after 3 days. InformationSp ecimen code = 498) Source: [facility] Site: [place]ne[place] MethodistBasic Metabolic [id number] 08:25:00 Test Item Value Reference Range Interpretation Comments Sodium (test code = 137 meq/L 555-083 2122-2) Potassium (test code = 4.7 meq/L 3.5-5.1 2823-3) Chloride (test code = 101 meq/L 98-107 2075-0) CO2 (test code = 32 meq/L 22-29 H 2028-9) BUN (test code = 23 mg/dL 7-21 H 3094-0) Creatinine (test code = 3.88 mg/dL 0.57-1.25 H 2160-0) Glucose (test code = 119 mg/dL 70-105 H 2345-7) Calcium (test code = 9.1 mg/dL 8.4-10.2 04618-7) EGFR (test code = 12 mL/min/1.73 [place] [address]-2) NOT ACCURATE CREATININE CLEARANCE IN PREDICTING GLOMERULAR FILTRATION RATE . ESTIMATED GFR I S NOT APPLICABLE FOR DIALYSIS PATIEN TS. Lab Interpretation Abnormal (test code = 68330-1) [facility] METABOLIC [id number] 08:25:00 Test Item Value Reference Range Interpretation [...] S NOT APPLICABLE FOR DIALYSIS PATIEN TS. [id number] 12:25:00 Test Item Value Reference Range Interpretation Comments POC-SODIUM (BEAKER) 139 meq/L 135-[address] [facility] 7200 (test code = 1542) [facility] B ENG [place] 7703 0 [id number] 12:25:00 Test Item Value Reference Range Interpretation Comments POC-POTASSIUM 4.1 meq/L 3.6-5.5 TESTED AT [place] [address] ([facility]) (test code RENÉ Sharif [facility] B = 1540) [place] [address] 0 [id number] 12:25:00 Test Item Value Reference Range Interpretation Comments POC-BUN ([facility]) 20 mg/dL 7-21 TESTED AT [place] [address] (test code = 2842) [facility] [address] [id number] 12:25:00 Test Item Value Reference Range Interpretation Comments POC-CHLORIDE 101 meq/L 98-107 TESTED AT [place] [address] ([facility]) (test code EUGENE Kole [facility] B = 2843) [place] [address] 0 [id number] 12:25:00 Test Item Value Reference Range Interpretation Comments POC-GLUCOSE ([facility]) 155 mg/dL 70-110 H TESTED AT [place] [address] (test code = 1855) [place] [address] 0 [id number] 12:25:00 Test Item Value Reference Range Interpretation Comments POC-HEMATOCRIT 37 % 36-45 TESTED AT [place] [address] ([facility]) (test code = HUSEYIN Kole [facility] 1857) [facility] [id number] 12:25:00 Test Item Value Reference Range Interpretation Comments POC-HEMOGLOBIN 12.6 g/dL 12.0-15.0 TESTED AT [place] [address] ([facility]) (test [facility] = 1856) [place] [address] [facility] 72 00 [place] [address] 0 CHEM [id number] 07:48:007[facility]ann[facility] SFBQQ5561-22-30 07:48:005.79 [facility]annCHEM CECVS7800-42-37 07:48:0024[facility] HermannCHEM PANEL 2016-11-11 07:48:005.3[facility] HermannCHEM KRNUQ4263-08-49 07:48:57476Aizzlwsp HermannCHEM OALIB2830-62-91 07:48:57028Snviktdx HermannCHEM IDMSI2970-86-67 07:48:0038[facility]annCHEM RHLQO5077-57-37 07:48:008.6[facility]annCHEM TMAOA9648-92-20 07:48:22831Vsmjfjgd HermannCHEM LGDWE3347-88-56 07:48:0020.3 Memorial OuutiauFDVPHDLMTW9115-50-55 07:48:0015.4[facility] HermannHEMATOLOGY 2016-11-11 07:48:008.7[facility]orial EedhtprTHTEJNQFHL8546-09-40 07:48:38037Ydopedvx QghfedlULSRBLUWWC3557-45-64 07:48:0027.0[facility]orial QgwhiacMMFZUMYHJH2719-30-22 07:48:00 Test Item Value Reference Range Interpretation Comments MCH (test code = MCH) 32.1 pg 27.0-31.0 Memorial XyqrsgkWYQFGNGIFJ6474-49-08 07:48:0097.5[facility] HermannHEMATOLOGY 2016-11-11 07:48:0032.9[facility]orial JemceujPJZGBRVYYX7508-53-96 07:48:006.4[facility]orial PstjypbHLVNHWZFYD2962-62-81 07:48:002.76[facility] EsomzhnEJIQYEXBAQ0507-98-64 07:48:008.9[facility] DbwzbijGQYLZGBZBU7391-91-29 07:48:000.1[facility] [place] CBRROJAPDK9113-63-74 07:48:000.9[facility] SgdmruiRWHZUTLNPB0272-39-23 07:48:000.7 Memorial ZtbybnyGALJBAWFLE4336-55-35 07:48:0014.1[facility] HermannHEMATOLOGY 2016-11-11 07:48:001.9[facility] NkinfkoWIIUHCAHKS6688-87-22 07:48:0010.7[facility] DwysuvhHKXJDIYVUG5113-20-02 07:48:004.7[facility]orial QnlnksuOLYSMLTVXS2059-52-41 07:48:000.7[facility]orial GgnwhstJEPNDVEISA4455-79-93 07:48:0072.6[facility] HermannCHEM FWFMJ9818-79-22 09:12:003.9[facility] HermannCHEM QVHCZ8349-79-57 09:12:002.6 Memorial OwwgfduOBLIYOXARGMG9232-12-50 09:12:96193Zwvnzpfe HermannELECTROLYTES 2016-11-10 09:12:008.6[facility]orial RdmfnxmWYQSXQXIIVKV0658-62-18 09:12:004.8[facility] UaptjqmRZQNDHOYRVPT4375-48-79 09:12:31201Ixhydgti DewzuzaSDEXMEURHDXF2364-46-07 09:12:0029[facility] QorlityLXVZPYZZRDAG1575-71-56 09:12:000.7[facility] DWMWFJMEKHFX1309-09-51 09:12:006.0[facility]orial TcxumxtBHIIRGDTYTJO2554-79-09 09:12:60812Ywlddhqk VdzbtrdKUGHYNUUXQPQ4666-78-79 09:12:0014[facility] DGKLWAHFZIGR1574-93-87 09:12:0014Memorial QemjcqqQEMWFMZSHUYB1275-08-61 09:12:00 2.9Memorial AixcvopTVPPGKXTQEMP3071-74-69 09:12:97242Nddnbdgu [facility] KSNQUAFLENRR0147-39-96 09:12:004.87[facility] EofedngGFJHWINENLUG4511-33-18 09:12:0028[facility] MwjvulsIDRGHXXMABLD9345-38-58 09:12:009[facility] TEDYAYXXJNPQ9583-97-68 09:12:0014.8[facility] FzrggnoAJEIXVDOBNDW0513-81-95 09:12:000.9[facility]orial PpxkndpCUFADXUKGGGA5382-44-75 09:12:003.1[facility] URQWCDCZHJKT8180-35-29 09:12:006[facility] KmlrmwqJKWSGHMMUM7140-80-24 09:12:006.1 Memorial BwslrtmBJZYPDTOAV6881-77-28 09:12:0028.5[facility] HermannHEMATOLOGY 2016-11-10 09:12:0096.9[facility]orial EhgvobwUFWIKHMWGW9069-46-74 09:12:002.94Memorial WfluzwvUOMHTIIMPO7475-74-44 09:12:009.5[facility]orial YugrqthWRUHYCKLKQ2005-24-62 09:12:0015.4[facility] WvwlawlFFTRBQRHBM8743-85-45 09:12:48761Gsrqyriz [place] GQMOYLTWGY6244-23-67 09:12:00 Test Item Value Reference Range Interpretation Comments MCH (test code = MCH) 32.1 pg 27.0-31.0 Memorial EkcvrkaIRLIQWYYOE9848-94-86 09:12:0033.2[facility] HermannHEMATOLOGY 2016-11-10 09:12:008.6[facility]orial NgzgxeaTVIHTQFPEJ1344-93-50 09:12:000.2[facility]orial CifnynvOMBNRMJPSB8030-28-09 09:12:001.2[facility]orial RnjcqmhTVALHEONYQ3842-17-17 09:12:000.6[facility] GbgyxlwNEDGPODLKT0662-34-94 09:12:003.7[facility] [place] JDTXNFPWNY4838-76-52 09:12:004.1[facility] RixpbdaEPTTNNRCVQ0632-63-15 09:12:000.7 Memorial LszfjwaPYCYQGPQDY5471-10-52 09:12:009.3[facility] HermannHEMATOLOGY 2016-11-10 09:12:0019.5Memorial LxrdftcOXEHCKNXSJ2798-56-69 09:12:0066.8Memorial XzyusrsHAYDYTCLMS6247-30-16 17:57:0011.6[facility]orial LywecwaFPIKIRYPLQ4785-40-86 17:57:63798Fvryfyxu ZniwkmsRIGWXKIEWH6112-19-80 17:57:004.8[facility] [place] UWURWRKDUO2406-15-06 17:57:0034.0[facility] QmqrcvmFVIRBXCGUD1112-74-25 17:57:00 137[facility] [place]
[2020-08-06 00:15] LABS: Protime INR 1.33
[2020-08-06 00:17] LABS: Absolute Lymphocytes (CBC) 0.9 K/uL (0.7-4.9); Basophils % 1.1 % (0-1.3); Hematocrit 29.1 % (36.0-45.0); Lymphocytes % 14.6 % (15.3-44.8); MPV 8.4 fL (7.6-11.3); RBC Red Blood Cell Count 2.97 M/uL (3.86-4.86)
[2020-08-06 01:04] LABS: AST/SGOT 20 U/L (15-37); Alkaline Phosphatase 193 U/L (45-117); BUN Blood Urea Nitrogen 22 mg/dL (7-18); Bicarbonate 29 mmol/L (21-32); Bilirubin Direct 0.2 mg/dL (0-0.2); Bilirubin Total 0.4 mg/dL (0.2-1.0); Glucose Level 96 mg/dL (74-106); Magnesium 2.1 mg/dL (1.8-2.4); NT PRO-BNP 69340 pg/mL (<125); Potassium 3.6 mmol/L (3.5-5.1); Sodium Level 142 mmol/L (136-145); Troponin (Emerg Dept Use Only) 0.02 ng/mL (0.0-0.045)
[2020-08-06 01:05] LABS: ALT/SGPT < 6 U/L (12-78)
--- NOTE | 2020-08-06 03:35 | ER ---
Nurse's Notes [facility] Name: Jens Hightower Age: 65 yrs Sex: Female : 1955 Arrival Date: 08/05/2020 Time: 22:27 Bed 5 Private MD: Diagnosis: acute CHF exacerbation Presentation: 08/05 22:35 Chief complaint: Patient states: I am having hard time to breath started couple of days rr5 ago. denies fever, cough. I am doing dialysis (MWF)had my dialysis today. 22:35 Coronavirus screen: shortness of breath, Client presents with at least one sign or rr5 symptom that may indicate coronavirus-19. Standard/surgical mask placed on the client. Provider contacted for isolation considerations. Ebola Screen: Patient negative for fever greater than or equal to 101.5 degrees Fahrenheit, and additional compatible Ebola Virus Disease symptoms Patient denies exposure to infectious person. Patient denies travel to an Ebola-affected area in the 21 days before illness onset. Initial Sepsis Screen: Does the patient meet any 2 criteria? RR > 20 per min. Does the patient have a suspected source of infection? Yes: Productive cough/pneumonia. Risk Assessment: Do you want to hurt yourself or someone else? Patient reports no desire to harm self or others. Onset of symptoms was August 05, 2020. 22:35 Method Of Arrival: Wheelchair rr5 22:35 Acuity: BRANDON 3 rr5 Triage Assessment: 22:57 General: Appears in no apparent distress. Behavior is calm, cooperative. Respiratory: mg2 the patient has mild shortness of breath. Respiratory: Onset: The symptoms/episode began/occurred gradually. Historical: - Allergies: 22:43 PENICILLINS; rr5 - PMHx: 22:43 chronic renal failure; COPD; Diabetes - IDDM; Dialysis; M-W-F; DIALYSIS MWF; ESRD; rr5 Fibula Shaft Fracture; Hypertension; Thyroid problem; Tibial Shaft Fracture; - PSHx: 22:43 AV fistula rig arm; rr5 - Immunization history:: Adult Immunizations up to date. - Social history:: Smoking status: unknown. Screenin:47 Abuse screen: Denies threats or abuse. Denies injuries from another. Nutritional rr5 screening: No deficits noted. Tuberculosis screening: No symptoms or risk factors identified. Fall Risk IV access (20 points). Ambulatory Aid- None/Bed Rest/Nurse Assist (0 pts). Gait- Impaired (20 pts.). Mental Status- Oriented to own ability (0 pts). Total Dhaliwal Fall Scale indicates High Risk Score (45 or more points). Fall prevention measures have been instituted. Side Rails Up X 2 Placed Close to Nursing Station Frequent Obs/Assessments Occuring As available patient and family educated on Fall Prevention Program and Strategies. Assessment: 22:44 General: Appears in no apparent distress. uncomfortable, Behavior is calm, cooperative. rr5 Pain: Denies pain. Neuro: Level of Consciousness is awake, alert, obeys commands, Oriented to person, place, time. Cardiovascular: Capillary refill < 3 seconds Patient's skin is warm and dry. Edema Rhythm is regular Dialysis shunt: in the right arm, with palpable thrill, with no erythema, with no edema, no bleeding noted. Respiratory: Reports shortness of breath Airway is patent Respiratory effort is even, unlabored, Respiratory pattern is tachypnea O2 dependent 1-2 liters. GI: insulin pump noted. : Reports anuria. EENT: No signs and/or symptoms were reported regarding the EENT system. Derm: Skin is intact, is healthy with good turgor, Skin temperature is warm Decubitus located on left sacrum gluteal. Musculoskeletal: non ambulatory on wheelchair. 08/06 00:10 Reassessment: Patient appears in no apparent distress at this time. Patient and/or rr5 family updated on plan of care and expected duration. Pain level reassessed. Patient is alert, oriented x 3, equal unlabored respirations, skin warm/dry/pink. 01:28 Reassessment: Patient appears in no apparent distress at this time. Patient and/or mg2 family updated on plan of care and expected duration. Pain level reassessed. Patient is alert, oriented x 3, equal unlabored respirations, skin warm/dry/pink. 01:33 Reassessment: [id number] adriana . rr5 03:05 Reassessment: Patient appears in no apparent distress at this time. Patient is alert, rr5 oriented x 3, equal unlabored respirations, skin warm/dry/pink. 03:44 General: Dr Vázquez at bedside examining the patient advised for admission. . mg2 04:17 Reassessment: Patient appears in no apparent distress at this time. Patient is alert, rr5 oriented x 3, equal unlabored respirations, skin warm/dry/pink. awaiting for in patient orders, may give morphine 0.5mg/IV stat if patient complaint of pain. as Verbal order of dr vázquez. 05:21 Reassessment: Patient appears in no apparent distress at this time. Patient is alert, rr5 oriented x 3, equal unlabored respirations, skin warm/dry/pink. unable to draw repeat troponin test, laboratory informed. Patient states feeling better. Patient states symptoms have improved. Vital Signs: 08/05 22:35 BP 150 / 63; Pulse 81; Resp 24; Temp 98.3; Pulse Ox 100% on 1.5 lpm NC; Weight 59.87 rr5 kg; Height 5 ft. 6 in. (167.64 cm); Pain 0/10; 23:32 BP 151 / 64; Pulse 79; Resp 16; Pulse Ox 100% 2 lpm ; rr5 08/06 01:27 Pulse 79; Resp 20; Pulse Ox 100% on 2 lpm NC; mg2 01:27 BP 151 / 60; rr5 02:38 BP 151 / 63; Pulse 72; Resp 18; Pulse Ox 98% on 2 lpm NC; mg2 03:05 BP 152 / 61; Pulse 75; Resp 19; Pulse Ox 100% on 2 lpm NC; rr5 04:17 BP 151 / 66; Pulse 79; Resp 17; Pulse Ox 96% on 2 lpm NC; rr5 05:20 BP 145 / 73; Pulse 75; Resp 19; Temp 98.2; Pulse Ox 100% on 2 lpm NC; rr5 08/05 22:35 Body Mass Index 21.31 (59.87 kg, 167.64 cm) rr5 ED Course: 08/05 22:27 Patient arrived in ED. cl3 22:29 Goran Sharp, JAYCEE is Primary Nurse. mg2 22:30 Kevin Singh MD is Attending Physician. ps1 22:42 Triage completed. rr5 22:44 Arm band placed on right wrist. rr5 22:44 EKG done, by ED staff, reviewed by Kevin Singh MD. rr5 22:48 Patient has correct armband on for positive identification. Placed in gown. Bed in low rr5 position. Call light in reach. Side rails up X2. cardiac monitor technician on. Pulse ox on. NIBP on. 22:57 No provider procedures requiring assistance completed. Inserted saline lock: 22 gauge mg2 in left hand, using aseptic technique. 23:52 XRAY Chest (1 view) In Process Unspecified. EDMS 08/06 00:01 Initial lab(s) drawn, by laborer concrete paving, sent to lab. rr5 03:33 Octavio Vázquez MD is Hospitalizing Provider. ps1 03:45 COVID swab sent to lab. Patient admitted, IV remains in place. mg2 Administered Medications: No medications were administered Outcome: 03:34 Decision to Hospitalize by Provider. ps1 05:20 Admitted to Med/surg accompanied by tech, via wheelchair, room 218, with oxygen, with rr5 chart, Report called to darrell 05:20 Condition: stable 05:20 Instructed on the need for admit. 05:39 Patient left the ED. rr5 Signatures: Dispatcher [employer] EDMN Kevin Singh MD MD ps1 Goran Sharp RN RN mg2 Khari Mcrae RN RN rr5 Marielena Akbar cl3
--- NOTE | 2020-08-06 03:35 | EDPHYS ---
Physician Documentation [facility] Name: Jens Hightower Age: 65 yrs Sex: Female : 1955 Arrival Date: 08/05/2020 Time: 22:27 Bed 5 Private MD: ED Physician Kevin Singh HPI: 08/05 22:42 This 65 yrs old Female presents to ER via Wheelchair with complaints of ps1 Shortness Of Breath, Breathing Difficulty. 22:42 patient has a history of CHF and dialysis. Anuric. States she went to dialysis today. ps1 Has had JESU over last week and worsening symptoms. Denies chest pain. Has leg swelling that is chronic and managed by Dr. Almodovar. Presented wrapped with JUMA bandages. . Historical: - Allergies: 22:43 PENICILLINS; rr5 - PMHx: 22:43 chronic renal failure; COPD; Diabetes - IDDM; Dialysis; M-W-F; DIALYSIS MWF; ESRD; rr5 Fibula Shaft Fracture; Hypertension; Thyroid problem; Tibial Shaft Fracture; - PSHx: 22:43 AV fistula righ arm; rr5 - Immunization history:: Adult Immunizations up to date. - Social history:: Smoking status: unknown. ROS: 22:42 Constitutional: Negative for fever, chills, and weight loss, Eyes: Negative for injury, ps1 pain, redness, and discharge, Cardiovascular: Negative for chest pain, palpitations, and edema, Abdomen/GI: Negative for abdominal pain, nausea, vomiting, diarrhea, and constipation, MS/Extremity: Negative for injury and deformity, Skin: Negative for injury, rash, and discoloration, Neuro: Negative for headache, weakness, numbness, tingling, and seizure. 22:42 Respiratory: Positive for dyspnea on exertion, shortness of breath. Exam: 22:42 Constitutional: This is a well developed, well nourished patient who is awake, alert, ps1 and in no acute distress. Head/Face: Normocephalic, atraumatic. Eyes: Pupils equal round and reactive to light, extra-ocular motions intact. Lids and lashes normal. Conjunctiva and sclera are non-icteric and not injected. Cardiovascular: Regular rate and rhythm. No gallops, murmurs, or rubs. Normal PMI, no JVD. No pulse deficits. Respiratory: Lungs have equal breath sounds bilaterally, clear to auscultation and percussion. No rales, rhonchi or wheezes noted. No increased work of breathing, no retractions or nasal flaring. Abdomen/GI: Soft, non-tender, with normal bowel sounds. No distension or tympany. No guarding or rebound. No evidence of tenderness throughout. 22:42 Musculoskeletal/extremity: Edema, 2+ to the left midcalf and right midcalf is noted. Vital Signs: 22:35 BP 150 / 63; Pulse 81; Resp 24; Temp 98.3; Pulse Ox 100% on 1.5 lpm NC; Weight 59.87 rr5 kg; Height 5 ft. 6 in. (167.64 cm); Pain 0/10; 23:32 BP 151 / 64; Pulse 79; Resp 16; Pulse Ox 100% 2 lpm ; rr5 08/06 01:27 Pulse 79; Resp 20; Pulse Ox 100% on 2 lpm NC; mg2 01:27 BP 151 / 60; rr5 02:38 BP 151 / 63; Pulse 72; Resp 18; Pulse Ox 98% on 2 lpm NC; mg2 03:05 BP 152 / 61; Pulse 75; Resp 19; Pulse Ox 100% on 2 lpm NC; rr5 04:17 BP 151 / 66; Pulse 79; Resp 17; Pulse Ox 96% on 2 lpm NC; rr5 05:20 BP 145 / 73; Pulse 75; Resp 19; Temp 98.2; Pulse Ox 100% on 2 lpm NC; rr5 08/05 22:35 Body Mass Index 21.31 (59.87 kg, 167.64 cm) rr5 MDM: 08/05 22:33 Patient medically screened. ps1 08/05 22:56 Order name: Basic Metabolic Panel; Complete Time: 01:06 mg2 08/05 22:56 Order name: CBC with Diff; Complete Time: 00:35 mg2 08/05 22:56 Order name: LFT's; Complete Time: 01:06 mg2 08/05 22:56 Order name: Magnesium; Complete Time: 01:06 mg2 08/05 22:56 Order name: NT PRO-BNP; Complete Time: 01:06 mg2 08/05 22:56 Order name: PT-INR; Complete Time: 00:35 mg2 08/05 22:56 Order name: Troponin (emerg Dept Use Only); Complete Time: 01:06 [facility] 08/06 04:35 Order name: Comprehensive Metabolic Panel [facility] 08/06 04:35 Order name: Comprehensive Metabolic Panel [facility] 08/06 04:35 Order name: Troponin I [facility] 08/06 04:35 Order name: Troponin I [facility] 08/05 22:44 Order name: EKG - Nurse/Tech; Complete Time: 22:44 rr5 08/05 22:56 Order name: XRAY Chest (1 view) [facility] 08/05 22:56 Order name: EKG; Complete Time: 22:57 mg2 08/05 22:56 Order name: Cardiac monitoring; Complete Time: 22:56 [facility] 08/05 22:56 Order name: IV Saline Lock; Complete Time: 22:57 mg2 08/05 22:56 Order name: Labs collected and sent; Complete Time: 22:57 mg2 08/06 04:35 Order name: CONS Physician Consult [facility] 08/06 04:35 Order name: CONS Pharmacy Consult [facility] 08/06 04:35 Order name: Renal [facility] 08/06 04:36 Order name: Troponin I [facility] 08/06 04:36 Order name: Echo with Doppler [facility] 08/06 04:36 Order name: CBC with Automated Diff [facility] 08/06 04:36 Order name: CBC with Automated Diff [facility] 08/06 04:50 Order name: SARS-COV-2 RT PCR; Complete Time: 04:59 EDMD 08/06 05:12 Order name: Glucose, Ancillary Testing; Complete Time: 05:15 EDMD 08/05 22:56 Order name: O2 Per Protocol; Complete Time: 22:57 mg2 08/05 22:56 Order name: O2 Sat Monitoring; Complete Time: 22:57 mg2 Administered Medications: No medications were administered Disposition: 08/06/20 03:34 Hospitalization ordered by Octavio Mike for Observation. Preliminary diagnosis is acute CHF exacerbation. - Bed requested for Telemetry/MedSurg (observation). - Status is Observation. rr5 - Condition is Fair. - Problem is an acute exacerbation. - Symptoms have improved. Signatures: Dispatcher [employer] EDMD Viola Smith RN RN mw Kevin Singh MD MD ps1 Goran Sharp RN RN mg2 Khari Mcrae RN RN rr5 Corrections: (The following items were deleted from the chart) 22:56 22:56 EKG - Nurse/Tech ordered. mg2 mg2 08/06 03:55 03:45 CORONAVIRUS+MR.LAB.BRZ ordered. EDMS EDMS 05:09 03:34 Hospitalization Ordered by Octavio Mike MD for Observation. Preliminary mw diagnosis is acute CHF exacerbation. Bed requested for Telemetry/MedSurg (observation). Status is Observation. Condition is Fair. Problem is an acute exacerbation. Symptoms have improved. ps1 05:39 05:09 08/06/2020 03:34 Hospitalization Ordered by Octavio Mike MD for Observation. rr5 Preliminary diagnosis is acute CHF exacerbation. Bed requested for Telemetry/MedSurg (observation). Status is Observation. Condition is Fair. Problem is an acute exacerbation. Symptoms have improved. mw
--- NOTE | 2020-08-06 04:20 | P.HP ---
Certification for Inpatient Patient admitted to: Observation With expected LOS: <2 Midnights Patient will require the following post-hospital care: None Practitioner: I am a practitioner with admitting privileges, knowledge of patient current condition, hospital course, and medical plan of care. Services: Services provided to patient in accordance with Admission requirements found in Title 42 Section 412.3 of the Code of Federal Regulations Patient History Date of Service: 08/06/20 Reason for admission: Shortness of breath History of Present Illness: 65-year-old female past medical history of hypertension, diabetes mellitus, ESRD on HD M[facility] Dialysis unit , history of failed kidney transplant, history of chronic aches CHF on continuous home O2 use-1 L, developed worsening shortness of breath after dialysis yesterday. She states she typically have over 5 L ultrafiltration in dialysis but the only 2 2.1 L yesterday. She is on show a for blood pressure was low. On getting home she continuing to tolerate her p.o. intake. She is aneuric. She developed worsening shortness of breath and presented the ED. She denies any chest pain. She denies any cough or fever. She denies any sick contacts or covid exposure. Chest x-ray shows left pleural effusion with pulmonary edema. She admits to generalized body swelling which is non resolving. He was recently admitted for sacral decubitus ulcer Allergies Penicillins Allergy (Verified 08/30/17 10:31) Hives Home Medications: Ascorbic Acid [Vitamin C*] 1,000 mg PO DAILY 09/30/14 Isosorbide Mononitrate [Isosorbide Mononitrate ER] 120 mg PO BEDTIME 09/30/14 Levothyroxine [Synthroid*] 0.075 mcg PO BID 09/30/14 Pravastatin Sodium [Pravachol] 20 mg PO BEDTIME 09/30/14 carvediloL [Coreg*] 25 mg PO BID 09/30/14 Esomeprazole Magnesium 40 mg PO DAILY 06/14/17 Liothyronine Sodium [Cytomel] 5 mcg PO BID 06/14/17 Folic Acid/Vit B Complex and C [Judy-Karl Tablet] 0.8 mg PO DAILY 07/02/20 Pyridoxine [Vitamin B-6*] 100 mg PO DAILY 07/02/20 Calcitrol [Rocaltrol*] 0.5 mcg PO DAILY cap 07/07/20 Cholecalciferol (Vitamin D3) [Vitamin D 5,000 IU Cap*] 5,000 unit PO DAILY cap 07/07/20 Collagenase [Santyl Ointment*] 1 appl TOP DAILY tube 07/07/20 Docusate [Colace Cap*] 100 mg PO BID cap 07/07/20 Epoetin [Retacrit] 10,000 unit IV EVERY HD vial 07/07/20 Gabapentin [Neurontin*] 200 mg PO BID cap 07/07/20 Heparin [Heparin 1,000 units/mL *] 3,000 unit IV EVERY HD PRN vial 07/07/20 Hydromorphone [Dilaudid] 0.25 mg IV Q6H PRN syr 07/07/20 Insulin -Regular Human [Novolin -R*] See Protocol SQ ACHS ml 07/07/20 Mannitol 25% [Mannitol*] 12.5 gm IV EVERY HD PRN vial 07/07/20 Meropenem [Merrem 1 GM/100 ML NS IVPB] 1 gm IV DAILY #35 bag 07/07/20 Nepro Shake [Nepro*] 237 ml PO BID can 07/07/20 Polyethyl Gly 3350 [Glycolax*] 17 gm PO BID udbot 07/07/20 Sevelamer Carbonate [Renvela*] 800 mg PO TIDWM tablet 07/07/20 Ubidecarenone [Coenzyme Q10*] 200 mg PO DAILY cap 07/07/20 - Past Medical/Surgical History Diabetic: Yes -: dm -: htn -: End-stage renal disease on hemodialysis -: Hypothyroidism -: Type 1 DM on insulin pump -: kidney transplant -: cataract sx -: breast augmentation - Family History Father -: Heart disease - Social History Alcohol use: No CD- Drugs: No Caffeine use: Yes Place of Residence: Home Review of Systems 10-point ROS is otherwise unremarkable Physical Examination - Physical Exam General: Alert, In no apparent distress, Oriented x3 HEENT: Atraumatic, Normocephalic, PERRLA Neck: Supple, 2+ carotid pulse no bruit, JVD not distended Respiratory: Diminished, Crackles/rales Cardiovascular: Regular rate/rhythm, Normal S1 S2, Edema Gastrointestinal: Normal bowel sounds, Soft and benign, Non-distended Musculoskeletal: No clubbing, Swelling Integumentary: No rashes, No breakdown Neurological: Normal speech, Normal strength at 5/5 x4 extr - Studies Laboratory Data (last 24 hrs) 08/05/20 23:57: PT 15.3 H, INR 1.33 08/05/20 23:57: WBC 6.00, Hgb 9.2 L, Hct 29.1 L, Plt Count 228 08/05/20 23:57: Sodium 142, Potassium 3.6, BUN 22 H, Creatinine 2.50 H, Glucose 96, Magnesium 2.1, Total Bilirubin 0.4, AST 20, ALT < 6 L, Alkaline Phosphatase 193 H Assessment and Plan - Problems (Diagnosis) (1) Acute exacerbation of CHF (congestive heart failure) Current Visit: Yes Status: Acute (2) Hx of kidney transplant Current Visit: No Status: Acute (3) COPD (chronic obstructive pulmonary disease) Onset Date: 06/17/17 Current Visit: No Status: Chronic Qualifiers: COPD type: unspecified COPD Qualified Code(s): J44.9 - Chronic obstructive pulmonary disease, unspecified (4) ESRD (end stage renal disease) on dialysis Onset Date: 06/17/17 Current Visit: No Status: Chronic (5) HTN (hypertension) Onset Date: 06/17/17 Current Visit: No Status: Chronic Qualifiers: Hypertension type: essential hypertension (6) Lymphedema Current Visit: No Status: Chronic - Advance Directives Does patient have a Living Will: No Does patient have a Durable POA for Healthcare: Yes Physician Review Additional Text: # ESRD with marked fluid overload -will consult renal team for GN dialysis Target EF of 4-5 L today -may need daily dialysis for now -may need echocardiogram -if non improving, may need thoracocentesis of presumed left pleural effusion -will obtain CT chest to further evaluate left base opacity and level of effusion Hypertension-controlled diabetes-insulin sliding scale DVT prophylaxis start subcutaneous heparin Advanced directive-discussed with patient, she wishes trial full code
[2020-08-06] MEDS ORDERED: ALBUTEROL 2.5 MG/3 ML NEB SOL NEB PRN ×2 (04:30→14:00)
[2020-08-06] MEDS ORDERED: D50W 25 GM/50 ML SYRINGE IV PRN (04:30)
[2020-08-06] MEDS ORDERED: HYDRALAZINE HCL 20 MG/ML VIAL IV PRN (04:30)
[2020-08-06] MEDS ORDERED: GLUCAGON 1 MG/VIAL IM PRN (04:30)
[2020-08-06 05:53] VITALS: BMI 19.9
[2020-08-06] MEDS: MORPHINE 2 MG/ML SYR IV PRN ×3 (06:51→20:38)
[2020-08-06] MEDS: INSULIN -REGULAR HUMAN 50 UNIT/0.5 ML ML SQ SCH ×4 (07:30→19:57)
--- NOTE | 2020-08-06 07:54 | EKG ---
Test Date: 2020-08-05 Test Time: 22:40:19 Global Program Director: MG MEASUREMENT RESULTS: Intervals: Rate: 80 WV: QRSD: 98 QT: 430 QTc: 495 [place]: P: WV: QRS: -52 T: 154 INTERPRETIVE STATEMENTS: Accelerated Junctional rhythm Left anterior fascicular block Lateral infarct, age undetermined Abnormal ECG Compared to ECG 04/04/2020 14:58:43 Accelerated junctional rhythm now present Myocardial infarct finding now present Sinus rhythm no longer present Prolonged QT interval no longer present Electronically Signed On 08-06-20 07:53:56 [facility] by Jerry Olea
[2020-08-06] MEDS: ASPIRIN EC 81 MG TAB PO SCH (09:05)
[2020-08-06] MEDS: HEPARIN 5000 UNIT/ML 1 ML VIAL SQ SCH ×2 (09:05→20:02)
[2020-08-06] MEDS: GUAIFENESIN 600 MG SA TAB PO SCH ×2 (09:05→20:13)
[2020-08-06] MEDS: FAMOTIDINE 20 MG TAB PO SCH ×2 (09:14→20:29)
--- NOTE | 2020-08-06 11:01 | RAD REPORT ---
EXAM DESCRIPTION: RAD - Chest Single View - 08/05/2020 11:53 pm CLINICAL HISTORY: DYSPNEA Chest pain. COMPARISON: Chest Single View dated 04/06/2020; Chest Single View dated 04/04/2020; Chest Pa And Lat (2 Views) dated 06/26/2017; Chest Single View dated 06/14/2017 FINDINGS: Portable technique limits examination quality. [id number] bilateral interstitial lung opacities are present. Moderate opacification of the lef t inferior hemithorax seen likely infiltrate/pneumonia. The heart is mildly enlarged in size. No disp laced fractures. IMPRESSION: Left lower lung infiltrate/pneumonia pattern is suspected.
--- NOTE | 2020-08-06 11:26 | P.PN ---
Date of Service: 08/06/20 Patient seen and examined. She is complaining of shortness of breath. She looks dry. Plan; Patient is planned for hemodialysis today. Will repeat chest x-ray after hemodialysis to re-evaluate left pleural effusion. Patient is reported to have developed low blood pressure during hemodialysis yesterday. Hold antihypertensives until hemodialysis completed. Nephrology is following.
[2020-08-06] MEDS ORDERED: PNEUMOCOCCAL VACCINE 0.5 ML IMVAC ONE (14:00)
[2020-08-07] MEDS: MORPHINE 2 MG/ML SYR IV PRN ×3 (03:50→17:29)
[2020-08-07 04:44] LABS: Absolute Lymphocytes (CBC) 0.6 K/uL (0.7-4.9); Basophils % 1.2 % (0-1.3); Hematocrit 30.4 % (36.0-45.0); Lymphocytes % 10.4 % (15.3-44.8); RBC Red Blood Cell Count 3.04 M/uL (3.86-4.86)
[2020-08-07 05:05] LABS: AST/SGOT 15 U/L (15-37); Albumin 1.9 g/dL (3.4-5.0); Alkaline Phosphatase 177 U/L (45-117); BUN Blood Urea Nitrogen 31 mg/dL (7-18); Bicarbonate 25 mmol/L (21-32); Bilirubin Total 0.7 mg/dL (0.2-1.0); Glucose Level 230 mg/dL (74-106); Potassium 4.1 mmol/L (3.5-5.1); Sodium Level 140 mmol/L (136-145)
[2020-08-07 05:07] LABS: ALT/SGPT < 6 U/L (12-78)
[2020-08-07] MEDS ORDERED: D50W 25 GM/50 ML SYRINGE IV PRN (06:48)
[2020-08-07] MEDS ORDERED: D50W 25 GM/50 ML VIAL IV PRN (06:50)
[2020-08-07] MEDS: INSULIN -REGULAR HUMAN 50 UNIT/0.5 ML ML SQ SCH ×4 (07:30→19:49)
[2020-08-07] MEDS: FAMOTIDINE 20 MG TAB PO SCH (08:40)
[2020-08-07] MEDS: HEPARIN 5000 UNIT/ML 1 ML VIAL SQ SCH ×2 (08:40→20:44)
[2020-08-07] MEDS: GUAIFENESIN 600 MG SA TAB PO SCH ×2 (08:40→20:45)
[2020-08-07] MEDS: ASPIRIN EC 81 MG TAB PO SCH (08:41)
--- NOTE | 2020-08-07 11:35 | P.PN ---
Subjective Date of Service: 08/07/20 Chief Complaint: Shortness of breath No issues overnight. Patient is drowsy this morning. Physical Examination - Vital Signs Temperature: 97.5 F Blood Pressure: 136/63 Pulse: 83 Respirations: 20 Pulse Ox (%): 95 - Physical Exam General: In no apparent distress, Other (Drowsy) HEENT: Mucous membr. moist/pink Neck: Supple, JVD not distended Respiratory: Diminished Cardiovascular: Regular rate/rhythm, Edema (Bilateral lower extremities) Gastrointestinal: Soft and benign, Non-distended, No tenderness Musculoskeletal: No clubbing Integumentary: Other (Sacral decubitus ulcer.) Neurological: Other (No focal motor deficit.) Assessment And Plan - Current Problems (Diagnosis) (1) Volume overload Current Visit: Yes Status: Acute (2) ESRD (end stage renal disease) on dialysis Onset Date: 06/17/17 Current Visit: No Status: Chronic (3) Pressure ulcer of sacral region, stage 3 Current Visit: No Status: Chronic (4) Right ischial pressure sore, stage 3 Current Visit: No Status: Chronic (5) Type 1 diabetes mellitus on insulin therapy Onset Date: 06/27/18 Current Visit: No Status: Chronic (6) Pneumonia Current Visit: Yes Status: Acute (7) Anemia in chronic kidney disease Current Visit: Yes Status: Acute - Plan No dialysis done yesterday. Hemodialysis per nephrology. Patient tolerating oxygen by nasal cannula. Local wound care. Pressure ulcer precautions- Frequent turning. Continue other home medications. Imdur on hold due to hypotension during dialysis. Chest x-ray demonstrate pneumonia. IV antibiotics for healthcare associated pneumonia. Follow blood cultures. Titrate oxygen. Monitor CBC. Physician Review Additional Text: # ESRD with marked fluid overload -will consult renal team for GN dialysis Target EF of 4-5 L today -may need daily dialysis for now -may need echocardiogram -if non improving, may need thoracocentesis of presumed left pleural effusion -will obtain CT chest to further evaluate left base opacity and level of effusion Hypertension-controlled diabetes-insulin sliding scale DVT prophylaxis start subcutaneous heparin Advanced directive-discussed with patient, she wishes trial full code
[2020-08-07] MEDS ORDERED: BISACODYL 10 MG RECTAL SUPP PR ONE (13:24)
--- NOTE | 2020-08-07 13:42 | CON ---
Date of Consultation: 08/07/2020 Requesting Provider: Dr. José Salguero. Reason For Consultation: End-stage renal disease. History Of Present Illness: Ms. Hightower is a 65-year-old female with a history of end-stage renal di sease, who usually dialyzes on a Saturday, Saturday, Saturday schedule at local [facility] unit, presented to hospital with shortness of breath. At the dialysis unit 2 L of ultrafiltration achieved. However , patient was hypotensive, however remained stable. Patient went home, developed progressively worse milan dyspnea and was admitted. Patient seen at the bedside with her . states that the patient has been having some s hortness of breath since of last week. Imaging thus far shows left lower lobe pneumonia with some scattered bilateral opacities. Patient has had recent prolonged hospitalizations for sacral ulcer. The patient has been home for ap proximately 2 weeks in that regard. Past Medical History: Reviewed. Physical Examination: Vital Signs: Blood pressure is 136/63, pulse 83, temperature 97.5. General: No acute distress. Heart: Regular rate and rhythm. No murmurs, rubs, gallops. Lungs: Crepitations heard at the left base and middle lung field. Other lung nicholas are clear, ramirez darrel, limited by patient effort. Abdomen: Soft, nontender. Extremities: No significant edema and bilateral lower extremities are wrapped from the knees down wi th no appreciable edema noted. The patient does have 2 wounds on the bilateral shins as per ' s report. Laboratory Data: Hemoglobin 9.5, hematocrit 30.4. Serum chemistry: Potassium 4, BUN 31, creatinine 3.2, glucose 230, albumin 1.9. Current medications were reviewed. Impression: 1.End-stage renal disease, on hemodialysis. 2.Acute respiratory failure. 3.Left lower lobe pneumonia. 4.Hypertension. Plan: Ms. Hightower is stable from electrolyte standpoint. Patient does have underlying interstitial lung disease as documented in prior chest x-rays. Patient's respiratory status seems to be most comp romised at this time due to left lower lobe pneumonia. Dialysis orders have been placed for patient to have extra volume removal. Please continue to titrate patient's antihypertensive regimen to avoid hypotension. We will manage anemia and mineral and bone disease as appropriate. Please ensure patient is on a renal diet and we will continue to follow. SE/MODL Voice ID: [id number] Report ID: [id number]
[2020-08-07] MEDS ORDERED: Levofloxacin 750mg IV 750 MG/150 ML BAG IV ONE (14:00)
[2020-08-07] MEDS: CALCIUM CARBONATE CHEW 500MG TAB PO SCH ×2 (14:19→20:45)
[2020-08-07] MEDS: POLYETHYL GLY 3350 17 GM/DOSE PO SCH ×2 (14:19→20:45)
[2020-08-07] MEDS ORDERED: NA CHLORIDE 0.9% 250 ML ONE (14:35)
[2020-08-07] MEDS: ONDANSETRON 4 MG/2 ML VIAL IV PRN (17:25)
[2020-08-07] MEDS: VANCOMYCIN/NS 1 gm 1 GM/250 ML BAG IVPB SCH (17:37)
[2020-08-07] MEDS: ATORVASTATIN 10 MG TAB PO SCH (20:45)
[2020-08-08] MEDS: MORPHINE 2 MG/ML SYR IV PRN ×2 (06:07→11:31)
[2020-08-08 06:37] LABS: Absolute Lymphocytes (CBC) 0.7 K/uL (0.7-4.9); Basophils % 1.2 % (0-1.3); Hematocrit 28.6 % (36.0-45.0); Lymphocytes % 12.2 % (15.3-44.8); MPV 8.4 fL (7.6-11.3); RBC Red Blood Cell Count 2.92 M/uL (3.86-4.86)
[2020-08-08 06:58] LABS: C-Reactive Protein 91.3 mg/L (<3.00); Magnesium 2.5 mg/dL (1.8-2.4); Potassium 4.2 mmol/L (3.5-5.1)
--- NOTE | 2020-08-08 07:11 | RAD REPORT ---
EXAM DESCRIPTION: RAD - Chest Single View - 08/08/2020 4:32 am CLINICAL HISTORY: hypoxia, effusion, ?pneumonia COMPARISON: August 05 TECHNIQUE: AP portable chest image was obtained 08/08/2020 4:32 am . FINDINGS: Left pleural effusion findings with lung parenchymal opacification noted appearing slightl y worse than the prior study. Central vasculature and lung markings have increased in prominence. Thi s is in part due to a more shallow inspiratory effort. Prominent cardiac silhouette remains. Vascular engorgement is seen. No pneumothorax. No acute bony a bnormality seen. No acute aortic findings suspected. IMPRESSION: Slight worsening of left base opacification since August 05 imaging. Heart, vasculature and lung markings suggests a component of failure or volume overload.
[2020-08-08] MEDS: INSULIN -REGULAR HUMAN 50 UNIT/0.5 ML ML SQ SCH ×4 (07:30→21:00)
[2020-08-08] MEDS: POLYETHYL GLY 3350 17 GM/DOSE PO SCH ×2 (08:25→21:00)
[2020-08-08] MEDS: LEVOTHYROXINE SOD 0.075 MG TAB PO SCH (08:25)
[2020-08-08] MEDS: CALCIUM CARBONATE CHEW 500MG TAB PO SCH ×3 (08:26→21:00)
[2020-08-08] MEDS: ZINC SULFATE 220 MG CAP PO SCH (08:26)
[2020-08-08] MEDS: GUAIFENESIN 600 MG SA TAB PO SCH ×2 (08:26→21:30)
[2020-08-08] MEDS: ASCORBIC ACID 500 MG TABLET PO SCH (08:27)
[2020-08-08] MEDS: ASPIRIN EC 81 MG TAB PO SCH (08:27)
[2020-08-08] MEDS: VITAMIN D 5,000 UNIT CAP PO SCH (08:27)
[2020-08-08] MEDS: FAMOTIDINE 20 MG TAB PO SCH (08:27)
[2020-08-08] MEDS: HEPARIN 5000 UNIT/ML 1 ML VIAL SQ SCH ×2 (08:27→21:33)
[2020-08-08] MEDS: VITAMIN B COMPLEX 1 CAP PO SCH (08:27)
[2020-08-08] MEDS: PANTOPRAZOLE 40MG TABLET PO SCH (08:27)
[2020-08-08] MEDS: BIOTIN 5000 MCG PO SCH (09:00)
[2020-08-08] MEDS ORDERED: HOME MED 1 EA UNK (Folic Acid/Vit B Complex And C [Rena-Vite Tablet] 0.8 MG Tablet) PO SCH (09:00)
[2020-08-08] MEDS ORDERED: B COMPLEX WITH VITAMIN C PO SCH (09:00)
[2020-08-08] MEDS ORDERED: ALBUMIN HUMAN 25% 50 ML IV ONE (10:20)
--- NOTE | 2020-08-08 11:46 | P.CNS ---
Date of Consult: 08/08/20 Chief Complaint: Shortness of breath History of Present Illness: The patient is a 65-year-old female with a past medical history of hypertension, diabetes type 2, ESRD on HD, history of failed kidney transplant, and congestive heart failure who presented to the emergency room due to shortness of breath after dialysis. Chest x-ray was completed which showed worsening of the left base opacification concerning for pneumonia. Patient also has a history of osteomyelitis is also stage 3 right ischial pressure ulcer. Infectious disease and wound care has been consulted to monitor the patient's antibiotics as well as her pressure ulcer. The patient states she is having pain to her tailbone area and state that she had a fall about 6 weeks ago. She denies nausea, vomiting, diarrhea, or chest pain. 10 point ROS has been completed with pertinent positives and negatives listed above. Allergies Penicillins Allergy (Verified 08/30/17 10:31) Hives Home Medications: Ascorbic Acid [C-1000] 1,000 mg PO DAILY 08/06/20 B-Complex with Vitamin C [Super B Complex-Vitamin C] 1 tab PO DAILY 08/06/20 Biotin 1 cap PO DAILY 08/06/20 Calcium Carbonate [Tums Regular*] 2 tab PO TID 08/06/20 Cholecalciferol (Vitamin D3) [Vitamin D3] 5,000 unit PO DAILY 08/06/20 Esomeprazole Magnesium 40 mg PO DAILY 08/06/20 Folic Acid/Vit B Complex and C [Judy-Karl Tablet] 1 tab PO DAILY 08/06/20 Isosorbide Mononitrate [Isosorbide Mononitrate ER] 60 mg PO BEDTIME 08/06/20 Levothyroxine Sodium [Synthroid] 2 tab PO DAILY 08/06/20 Mecobalamin [B12 Active] 50,000 mg PO DAILY 08/06/20 Joice-3/Dha/Epa/Fish Oil [Fish Oil Joice-3 EC 1,200 mg] 1 cap PO DAILY 08/06/20 Pravastatin Sodium 20 mg PO BEDTIME 08/06/20 Vitamin B Complex [Vitamin B Complex*] 1 cap PO DAILY 08/06/20 Zinc 22 mg PO DAILY 08/06/20 - Past Medical/Surgical History Diabetic: Yes -: dm -: htn -: End-stage renal disease on hemodialysis -: Hypothyroidism -: Type 1 DM on insulin pump -: kidney transplant -: cataract sx -: breast augmentation - Family History Father Medical History: Heart disease - Social History Smoking Status: Unknown if ever smoked Alcohol use: No CD- Drugs: No Caffeine use: Yes Place of Residence: Home Review of Systems 10-point ROS is otherwise unremarkable Physical Examination Temp Pulse Resp BP Pulse Ox 96.9 F 71 18 108/48 L 99 08/08/20 08:00 08/08/20 08:00 08/08/20 11:31 08/08/20 08:00 08/08/20 11:31 General: Moderate distress, Confused, Other HEENT: Atraumatic, Normocephalic Neck: Supple, 2+ carotid pulse no bruit Respiratory: Clear to auscultation bilaterally, Crackles/rales Cardiovascular: Regular rate/rhythm, Normal S1 S2 Capillary refill: <2 Seconds Gastrointestinal: Normal bowel sounds, Soft and benign Musculoskeletal: Other (Bilateral lower extremities wrapped with Wayne wraps) Integumentary: Pressure ulcer (To her right buttocks stage III majority soft tissue present periwound tissues clean dry and intact with no signs of acute infection) Lymphatics: No axilla or inguinal lymphadenopathy Laboratory Last Values WBC 6.20 K/uL (4.3-10.9) 08/07/20 04:17 RBC 3.04 M/uL (3.86-4.86) L 08/07/20 04:17 Hgb 9.5 g/dL (12.0-15.0) L 08/07/20 04:17 Hct 30.4 % (36.0-45.0) L 08/07/20 04:17 MCV 100.3 fL (80-100) H 08/07/20 04:17 MCH 31.2 pg (27.0-35.0) 08/07/20 04:17 MCHC 31.1 g/dL (32.0-36.0) L 08/07/20 04:17 RDW 18.9 % (12.1-15.2) H 08/07/20 04:17 Plt Count 233 K/uL (152-406) 08/07/20 04:17 MPV 8.0 fL (7.6-11.3) 08/07/20 04:17 Neutrophils % 77.6 % (41.7-73.7) H 08/07/20 04:17 Lymphocytes % 10.4 % (15.3-44.8) L 08/07/20 04:17 Monocytes % 8.9 % (3.3-12.3) 08/07/20 04:17 Eosinophils % 1.9 % (0-4.4) 08/07/20 04:17 Basophils % 1.2 % (0-1.3) 08/07/20 04:17 Absolute Neutrophils 4.8 K/uL (1.8-8.0) 08/07/20 04:17 Absolute Lymphocytes 0.6 K/uL (0.7-4.9) L 08/07/20 04:17 Absolute Monocytes 0.5 K/uL (0.1-1.3) 08/07/20 04:17 Absolute Eosinophils 0.1 K/uL (0-0.5) 08/07/20 04:17 Absolute Basophils 0.1 K/uL (0-0.5) 08/07/20 04:17 PT 15.3 SECONDS (9.5-12.5) H 08/05/20 23:57 INR 1.33 08/05/20 23:57 Sodium 140 mmol/L (136-145) 08/07/20 04:17 Potassium 4.1 mmol/L (3.5-5.1) 08/07/20 04:17 Chloride 106 mmol/L (98-107) 08/07/20 04:17 Carbon Dioxide 25 mmol/L (21-32) 08/07/20 04:17 BUN 31 mg/dL (7-18) H 08/07/20 04:17 Creatinine 3.20 mg/dL (0.55-1.3) H 08/07/20 04:17 Estimated GFR 14 mL/min (=/>90) L 08/07/20 04:17 Glucose 230 mg/dL (74-106) H 08/07/20 04:17 POC Glucose 286 mg/dL (65-120) H 08/07/20 11:08 Calcium 9.0 mg/dL (8.5-10.1) 08/07/20 04:17 Magnesium 2.1 mg/dL (1.8-2.4) 08/05/20 23:57 Total Bilirubin 0.7 mg/dL (0.2-1.0) 08/07/20 04:17 Direct Bilirubin 0.2 mg/dL (0-0.2) 08/05/20 23:57 AST 15 U/L (15-37) 08/07/20 04:17 ALT < 6 U/L (12-78) L 08/07/20 04:17 Alkaline Phosphatase 177 U/L (45-117) H 08/07/20 04:17 Rapid Troponin I 0.02 ng/mL (0.0-0.045) 08/05/20 23:57 Troponin I < 0.02 ng/mL (0.0-0.045) 08/06/20 08:50 NT-Pro-B Natriuret Pep 20067 pg/mL (<125) H 08/05/20 23:57 Serum Total Protein 6.0 g/dL (6.4-8.2) L 08/07/20 04:17 Albumin 1.9 g/dL (3.4-5.0) L 08/07/20 04:17 Globulin 4.1 g/dL (2.3-3.5) H 08/07/20 04:17 Albumin/Globulin Ratio 0.5 (1.1-1.8) L 08/07/20 04:17 SARS-CoV-2 RNA (RT-PCR) Negative (NEGATIVE) 08/06/20 03:48 Conclusions/Impression: Assessment: -pneumonia -stage III right buttocks ulcer -ESRD on HD -diabetes type 2 -anemia plan: -continue vancomycin and meropenem-renal dosing. Based on patient's weight and creatinine chest creatinine clearance estimation of 13.1 milliliters/minute. -stage III right buttocks ulcer: Clean with Dakin's used Saturday in cover with foam. -medical management per primary team -continue monitor CBC and BMP-no leukocytosis at this time -continue to monitor percent infection Plan of care discussed with Dr. Celis. Thank you for consultation.
[2020-08-08] MEDS ORDERED: Meropenem 500 MG VIAL IV SCH (12:00)
--- NOTE | 2020-08-08 12:33 | P.PN ---
Subjective Date of Service: 08/08/20 Chief Complaint: Shortness of breath Subjective: No new changes (patient reports feeling ok, with back pain, breathing about same as yesterday) Review of Systems 10-point ROS is otherwise unremarkable Physical Examination - Vital Signs Temperature: 96.8 F Blood Pressure: 143/46 Pulse: 73 Respirations: 18 Pulse Ox (%): 99 Assessment & Plan Physician Review Additional Text: Physical Exam General: NAD, +dementia / AAOx2 HEENT: Mucous membr. moist/pink Pulm: Diminished at bases Cardiovascular: Regular rate/rhythm, 1+ b/l lower extremity edema Gastrointestinal: Soft and benign, Non-distended, No tenderness Ext: no rash Integumentary: Sacral decubitus ulcer, no purulent drainage Problem List ESRD with Volume overload ESRD (end stage renal disease) on dialysis Acute hypoxia secondary to volume overload and pneumonia Pressure ulcer of sacral region, stage 3 Right ischial pressure sore, stage 3 Type 1 diabetes mellitus on insulin therapy Anemia in chronic kidney disease Chest x-ray demonstrate pneumonia. - continue levaquin/vanc for now. reportedly a hard stick and was unable to obtain blood cultures. will try again today. ID consulted check procal / CRP today; patient with recent hospitalization for ?osteo at sacral ulcer Hemodialysis per nephrology. Patient tolerating oxygen by nasal cannula. Seems to be slowly improving Local wound care. Pressure ulcer precautions- Frequent turning. Continue other home medications. Imdur on hold due to hypotension during dialysis. DVT prophylaxis Time Spent Managing Pts Care (In Minutes): 35
[2020-08-08] MEDS ORDERED: Levofloxacin500mg IV 500 MG/100 ML BAG IV SCH (14:00)
[2020-08-08] MEDS: Meropenem 500 MG in NA CHLORIDE 0.9% 100 ML IV SCH ×2 (14:50→22:35)
[2020-08-08] MEDS: CODEINE 30MG/APAP 300MG TAB PO PRN (15:25)
--- NOTE | 2020-08-08 20:00 | P.PN ---
Date of Service: 08/08/20 Vital Signs Temp Pulse Resp BP Pulse Ox 96.9 F 76 20 159/65 H 96 08/08/20 16:00 08/08/20 16:00 08/08/20 16:25 08/08/20 16:00 08/08/20 16:25 Medications Acetaminophen/Codeine Phosphate (Codeine 30mg/Apap 300mg Tab) 2 tab PO Q6H PRN PRN Reason: Pain scale 5-7 (Moderate) Last Admin: 08/08/20 15:25 Dose: 2 tab Documented by: Albuterol Sulfate (Albuterol 2.5 Mg/3 Ml Neb Lavern) 2.5 mg NEB [id number] PRN PRN Reason: SHORTNESS OF BREATH Ascorbic Acid (Ascorbic Acid 500 Mg Tablet) 1,000 mg PO DAILY [facility] Last Admin: 08/08/20 08:27 Dose: 1,000 mg Documented by: Aspirin (Aspirin Ec 81 Mg Tab) 81 mg PO DAILY [facility] Last Admin: 08/08/20 08:27 Dose: Not Given Documented by: Atorvastatin Calcium (Atorvastatin 10 Mg Tab) 10 mg PO BEDTIME [facility] Last Admin: 08/07/20 20:45 Dose: 10 mg Documented by: Calcium Carbonate/Glycine (Calcium Carbonate Chew 500mg Tab) 1,000 mg PO TID [facility] Last Admin: 08/08/20 14:50 Dose: 1,000 mg Documented by: Cholecalciferol (Vitamin D 5,000 Unit Cap) 5,000 unit PO DAILY [facility] Last Admin: 08/08/20 08:27 Dose: 5,000 unit Documented by: Dextrose (D50w 25 Gm/50 Ml Vial) 12.5 gm IV PRN PRN; Protocol PRN Reason: HYPOGLYCEMIA Enteral Nutritional Formula (Nepro Shake 237 Ml Can) 237 ml PO BID [facility] Famotidine (Famotidine 20 Mg Tab) 20 mg PO DAILY [facility]; Protocol Last Admin: 08/08/20 08:27 Dose: 20 mg Documented by: Glucagon (Glucagon 1 Mg/Vial) 1 mg IM 1X PRN; Protocol PRN Reason: HYPOGLYCEMIA Guaifenesin (Guaifenesin 600 Mg Sa Tab) 1,200 mg PO BID [facility] Last Admin: 08/08/20 08:26 Dose: 1,200 mg Documented by: Heparin Sodium (Porcine) (Heparin 5000 Unit/Ml 1 Ml Vial) 5,000 unit SQ Q12HR [facility] Last Admin: 08/08/20 08:27 Dose: 5,000 unit Documented by: Home Med (Biotin [Biotin]) 1 cap PO DAILY [facility] Last Admin: 08/08/20 09:00 Dose: Not Given Documented by: Home Med (Mecobalamin [B12 Active]) 50,000 mg PO DAILY [facility] Hydralazine HCl (Hydralazine Hcl 20 Mg/Ml Vial) 10 mg IV Q6HP PRN PRN Reason: Titrate to SBP (MUST DEFINE) Vancomycin HCl (Vancomycin 1 Gm/250 Ml Ns Ivpb) 1 gm in 250 mls @ 166.667 mls/hr IVPB Q48H [facility]; Protocol Last Admin: 08/07/20 17:37 Dose: 250 mls Documented by: Meropenem 500 mg/ Sodium (Chloride) 100 mls @ 100 mls/hr IV Q12HR [facility] Last Admin: 08/08/20 14:50 Dose: 100 mls Documented by: Insulin Human Regular (Insulin -Regular Human 50 Unit/0.5 Ml Ml) 0 unit SQ ACHS [facility]; Protocol Last Admin: 08/08/20 16:30 Dose: Not Given Documented by: Levothyroxine Sodium (Levothyroxine Sod 0.075 Mg Tab) 0.15 mg PO DAILY [facility] Last Admin: 08/08/20 08:25 Dose: 0.15 mg Documented by: Morphine Sulfate (Morphine 2 Mg/Ml Syr) 2 mg IV Q4H PRN PRN Reason: Pain scale 5-7 (Moderate) Last Admin: 08/08/20 11:31 Dose: 2 mg Documented by: Ondansetron HCl (Ondansetron 4 Mg/2 Ml Vial) 4 mg IV Q8H PRN PRN Reason: NAUSEA / VOMITING Last Admin: 08/07/20 17:25 Dose: 4 mg Documented by: Pantoprazole Sodium (Pantoprazole 40mg Tablet) 40 mg PO DAILY [facility] Last Admin: 08/08/20 08:27 Dose: 40 mg Documented by: Polyethylene Glycol (Polyethyl Gly 3350 17 Gm/Dose) 17 gm PO BID [facility] Stop: 08/08/20 21:01 Last Admin: 08/08/20 08:25 Dose: 17 gm Documented by: Sodium Chloride (Flush Normal Saline 10 Ml) 10 ml IV BID [facility] Last Admin: 08/08/20 08:28 Dose: 10 ml Documented by: Vitamin B Complex (Vitamin B Complex 1 Cap) 1 cap PO DAILY [facility] Last Admin: 08/08/20 08:27 Dose: 1 cap Documented by: Zinc Sulfate (Zinc Sulfate 220 Mg Cap) 220 mg PO DAILY [facility] Last Admin: 08/08/20 08:26 Dose: 220 mg Documented by: Assessment/ Plan: Nephrology No acute cardiac or pulmonary complaints. No CP or SOB. Reports sacral pain. No acute events overnight. HD today without complications. Vitals, medications, blood work and imaging reviewed in the chart. NAD. MMM. Neck supple. CTA. RRR. Soft Abd. No C/C. Hip edema1+. No rash. AAO. Poor hearing. Normal Speech. A/P: Continue the current POC and Medications other than the changes listed. AM Labs PRN. Recommend daily weight. Please see the orders for complete details. ESRD -HD MWF HTN with CKD/ CHF -Hydralazine PRN A/C Diastolic CHF -Low sodium diet -UF with HD DM I with Polyneuropathy/ CKD -No sugar diet -Renal diet Severe malnutriton with hypoalbuminemia -Recommend protein supplementation with promod Anemia in CKD -Give Retacrit TAWNYA/ Secondary HyperPTH -Continue Vitamin D3 Stage 3 Sacral Pressure Ulcer -Air mattress -Tylenol #3 as needed for pain. LLL PNA -Continue Levaquin and Meropenem
[2020-08-08] MEDS: NEPRO SHAKE 237 ML CAN PO SCH (21:00)
[2020-08-08] MEDS: ATORVASTATIN 10 MG TAB PO SCH (21:30)
[2020-08-09] MEDS: CODEINE 30MG/APAP 300MG TAB PO PRN ×2 (00:11→10:08)
[2020-08-09] MEDS: INSULIN -REGULAR HUMAN 50 UNIT/0.5 ML ML SQ SCH ×4 (07:30→22:03)
[2020-08-09] MEDS: PROMOD 30 ML DOSE PO SCH ×3 (08:00→16:45)
--- NOTE | 2020-08-09 08:17 | RAD REPORT ---
EXAM DESCRIPTION: Willis Single View08/09/2020 7:03 am CLINICAL HISTORY: Shortness of breath COMPARISON: August 08, 2020 FINDINGS: Worsening in right pulmonary opacities. No significant change in left pulmonary opacities. Heart remains enlarged IMPRESSION: Worsening in right and no significant change in left pulmonary opacities probably pneum onia
[2020-08-09] MEDS: ASPIRIN EC 81 MG TAB PO SCH (09:00)
[2020-08-09] MEDS ORDERED: EPOETIN ALFA-EPBX 10,000 UNIT/ML VIAL SQ SCH (09:00)
[2020-08-09] MEDS: BIOTIN 5000 MCG PO SCH (09:00)
[2020-08-09] MEDS: ONDANSETRON 4 MG/2 ML VIAL IV PRN ×2 (09:11→17:35)
[2020-08-09] MEDS: FAMOTIDINE 20 MG TAB PO SCH (09:12)
[2020-08-09] MEDS: ASCORBIC ACID 500 MG TABLET PO SCH (09:12)
[2020-08-09] MEDS: Meropenem 500 MG in NA CHLORIDE 0.9% 100 ML IV SCH ×2 (09:12→21:59)
[2020-08-09] MEDS: MULTIVITAMINS,THERAPEUT 1 TAB PO SCH (09:13)
[2020-08-09] MEDS: CALCIUM CARBONATE CHEW 500MG TAB PO SCH ×3 (09:13→22:04)
[2020-08-09] MEDS: LEVOTHYROXINE SOD 0.075 MG TAB PO SCH (09:13)
[2020-08-09] MEDS: VITAMIN B COMPLEX 1 CAP PO SCH (09:13)
[2020-08-09] MEDS: PANTOPRAZOLE 40MG TABLET PO SCH (09:13)
[2020-08-09] MEDS: VITAMIN D 5,000 UNIT CAP PO SCH (09:13)
[2020-08-09] MEDS: GUAIFENESIN 600 MG SA TAB PO SCH ×2 (09:14→22:04)
[2020-08-09] MEDS: HEPARIN 5000 UNIT/ML 1 ML VIAL SQ SCH ×2 (09:14→22:04)
[2020-08-09] MEDS: ZINC SULFATE 220 MG CAP PO SCH (09:14)
[2020-08-09] MEDS: NEPRO SHAKE 237 ML CAN PO SCH ×2 (09:15→21:00)
--- NOTE | 2020-08-09 09:31 | ECHO ---
HEIGHT: 5 ft 6 in WEIGHT: 124 lb 1.6 oz DATE OF STUDY: 08/08/[address]: Octavio Mike MD 2-DIMENSIONAL: YES M.MODE: YES DOPPLER: YES COLOR FLOW: YES TDS: YES PORTABLE: NO DEFINITY: NO BUBBLE STUDY: NO DIAGNOSIS: CEREBRAL VASCULAR ACCIDENT, RULE OUT VEGETATION CARDIAC HISTORY: CATHERIZATION: NO SURGERY: NO PROSTHETIC VALVE: NO PACEMAKER: NO MEASUREMENTS (cm) DIASTOLIC (NORMALS) SYSTOLIC (NORMALS) IVSd 1.1 (0.6-1.2) LA Diam 3.2 (1.9-4.0) LVEF 73% LVIDd 3.7 (3.5-5.7) LVIDs 2.2 (2.0-3.5) %FS 41% LVPWd 1.3 (0.6-1.2) Ao Diam 2.4 (2.0-3.7) 2 DIMENSIONAL ASSESSMENT: RIGHT ATRIUM: NORMAL LEFT ATRIUM: NORMAL RIGHT VENTRICLE: NORMAL LEFT VENTRICLE: LEFT VENTRICULAR HYPERTROPHY TRICUSPID VALVE: NORMAL MITRAL VALVE: MITRAL ANNULAR CALCIFICATION PULMONIC VALVE: NORMAL AORTIC VALVE: SCLEROSIS PERICARDIAL EFFUSION: NONE AORTIC ROOT: NORMAL LEFT VENTRICULAR WALL MOTION: NORMAL LEFT VENTRICULAR EJECTION FRACTION. DOPPLER/COLOR FLOW: DIASTOLIC DYSFUNCTION. COMMENTS: DIASTOLIC DYSFUNCTION. NORMAL LEFT VENTRICULAR EJECTION FRACTION. AORTIC SCLEROSIS WITH NO STENOSIS. MITRAL ANNULAR CALCIFICATION. LEFT VENTRICULAR HYPERTROPHY. NO VEGETATION OR THROMBUS. TECHNICALLY DIFFICULT. TECHNOLOGIST: Maria Del Carmen [place]
--- NOTE | 2020-08-09 12:00 | P.PN ---
Subjective Date of Service: 08/09/20 Chief Complaint: Shortness of breath Patient seen examined at bedside, states she is having significant pain to her sacral and right buttocks wound. Advised patient to continue to offload the wound, patient is utilizing air mattress at this time. She remains afebrile the T-max of 96.8 Review of Systems 10-point ROS is otherwise unremarkable Physical Examination - Vital Signs Temperature: 96.9 F Blood Pressure: 122/57 Pulse: 69 Respirations: 18 Pulse Ox (%): 96 - Physical Exam Other Physical/Emotional Findings: General: Moderate distress, Confused, Other. HEENT: Atraumatic, Normocephalic. Neck: Supple, 2+ carotid pulse no bruit. Respiratory: Clear to auscultation bilaterally, Crackles/rales. Cardiovascular: Regular rate/rhythm, Normal S1 S2. Capillary refill: <2 Seconds. Gastrointestinal: Normal bowel sounds, Soft and benign. Musculoskeletal: Other (Bilateral lower extremities wrapped with Wayne wraps). Integumentary: right buttock stage 3 pressure wound:5x3cm, majority slough tissue present, periwound tissue shows purple/red discoloration. Sacral pressure wound stage 4: 2.5x1x1 cm. tunnling at 1 oclock position measuring 3.2 cm. Base of wound shows granulation tissue-minimal drainage. sacrococcyx DTI: nonblanching purple d iscolration noted over area, surrounding stage 4 sacral wound. . Lymphatics: No axilla or inguinal lymphadenopathy - Studies Laboratory Last Values WBC 6.20 K/uL (4.3-10.9) 08/07/20 04:17 RBC 3.04 M/uL (3.86-4.86) L 08/07/20 04:17 Hgb 9.5 g/dL (12.0-15.0) L 08/07/20 04:17 Hct 30.4 % (36.0-45.0) L 08/07/20 04:17 MCV 100.3 fL (80-100) H 08/07/20 04:17 MCH 31.2 pg (27.0-35.0) 08/07/20 04:17 MCHC 31.1 g/dL (32.0-36.0) L 08/07/20 04:17 RDW 18.9 % (12.1-15.2) H 08/07/20 04:17 Plt Count 233 K/uL (152-406) 08/07/20 04:17 MPV 8.0 fL (7.6-11.3) 08/07/20 04:17 Neutrophils % 77.6 % (41.7-73.7) H 08/07/20 04:17 Lymphocytes % 10.4 % (15.3-44.8) L 08/07/20 04:17 Monocytes % 8.9 % (3.3-12.3) 08/07/20 04:17 Eosinophils % 1.9 % (0-4.4) 08/07/20 04:17 Basophils % 1.2 % (0-1.3) 08/07/20 04:17 Absolute Neutrophils 4.8 K/uL (1.8-8.0) 08/07/20 04:17 Absolute Lymphocytes 0.6 K/uL (0.7-4.9) L 08/07/20 04:17 Absolute Monocytes 0.5 K/uL (0.1-1.3) 08/07/20 04:17 Absolute Eosinophils 0.1 K/uL (0-0.5) 08/07/20 04:17 Absolute Basophils 0.1 K/uL (0-0.5) 08/07/20 04:17 PT 15.3 SECONDS (9.5-12.5) H 08/05/20 23:57 INR 1.33 08/05/20 23:57 Sodium 140 mmol/L (136-145) 08/07/20 04:17 Potassium 4.1 mmol/L (3.5-5.1) 08/07/20 04:17 Chloride 106 mmol/L (98-107) 08/07/20 04:17 Carbon Dioxide 25 mmol/L (21-32) 08/07/20 04:17 BUN 31 mg/dL (7-18) H 08/07/20 04:17 Creatinine 3.20 mg/dL (0.55-1.3) H 08/07/20 04:17 Estimated GFR 14 mL/min (=/>90) L 08/07/20 04:17 Glucose 230 mg/dL (74-106) H 08/07/20 04:17 POC Glucose 286 mg/dL (65-120) H 08/07/20 11:08 Calcium 9.0 mg/dL (8.5-10.1) 08/07/20 04:17 Magnesium 2.1 mg/dL (1.8-2.4) 08/05/20 23:57 Total Bilirubin 0.7 mg/dL (0.2-1.0) 08/07/20 04:17 Direct Bilirubin 0.2 mg/dL (0-0.2) 08/05/20 23:57 AST 15 U/L (15-37) 08/07/20 04:17 ALT < 6 U/L (12-78) L 08/07/20 04:17 Alkaline Phosphatase 177 U/L (45-117) H 08/07/20 04:17 Rapid Troponin I 0.02 ng/mL (0.0-0.045) 08/05/20 23:57 Troponin I < 0.02 ng/mL (0.0-0.045) 08/06/20 08:50 NT-Pro-B Natriuret Pep 26705 pg/mL (<125) H 08/05/20 23:57 Serum Total Protein 6.0 g/dL (6.4-8.2) L 08/07/20 04:17 Albumin 1.9 g/dL (3.4-5.0) L 08/07/20 04:17 Globulin 4.1 g/dL (2.3-3.5) H 08/07/20 04:17 Albumin/Globulin Ratio 0.5 (1.1-1.8) L 08/07/20 04:17 SARS-CoV-2 RNA (RT-PCR) Negative (NEGATIVE) 08/06/20 03:48 Assessment And Plan - Plan Assessment: -pneumonia -stage IV sacral ulcer w osteomyelitis -stage III right buttocks ulcer -DTI to sacrococcyx area -ESRD on HD -diabetes type 2 -anemia plan: -pneumonia: Repeat chest x-ray performed on 08/09 showed a worsening right pulmonary opacities with no change in left side. continue vancomycin and meropenem-renal dosing. -stage IV sacral ulcer w osteomyelitis: Repeat CT pelvis has been ordered to assess for osteomyelitis is still present. Recommend dressing the wound with Hydrogel and foam or aquacel qMWF. -stage III right buttocks ulcer: Clean with Dakin's used Saturday in cover with foam. -sacrococcyx DTI: apply barrier cream to area and continue to offload -offload all pressure wounds and avoid direct pressure-air mattress in place -medical management per primary team -continue monitor CBC and BMP-no leukocytosis at this time -continue to monitor percent infection Plan of care discussed with Dr. Celis. Thank you for consultation. Physician Review: Patient Assessed, Agree with Above Assessment and Plan
[2020-08-09 12:41] LABS: Absolute Lymphocytes (CBC) 0.9 K/uL (0.7-4.9); Basophils % 0.7 % (0-1.3); Hematocrit 30.2 % (36.0-45.0); RBC Red Blood Cell Count 3.01 M/uL (3.86-4.86)
[2020-08-09 13:08] LABS: Albumin 1.7 g/dL (3.4-5.0); Alkaline Phosphatase 139 U/L (45-117); BUN Blood Urea Nitrogen 24 mg/dL (7-18); Bicarbonate 20 mmol/L (21-32); Bilirubin Total 0.9 mg/dL (0.2-1.0); Glucose Level 314 mg/dL (74-106); Potassium 4.6 mmol/L (3.5-5.1); Protein, Total 5.3 g/dL (6.4-8.2); Sodium Level 137 mmol/L (136-145)
[2020-08-09 13:09] LABS: ALT/SGPT < 6 U/L (12-78); AST/SGOT 25 U/L (15-37); Magnesium 2.4 mg/dL (1.8-2.4)
[2020-08-09 13:32] LABS: Anisocytosis 1+; Blood Morphology Comment NOTED (NOT SEEN); Platelet Estimate ADEQ
[2020-08-09 13:33] LABS: Polychromasia SLIGHT
[2020-08-09] MEDS: VANCOMYCIN/NS 1 gm 1 GM/250 ML BAG IVPB SCH (15:11)
--- NOTE | 2020-08-09 15:26 | P.PN ---
Subjective Date of Service: 08/09/20 Chief Complaint: Shortness of breath Subjective: Other (Reports she feels about the same or maybe slightly worse compared to yesterday, with nausea today. Continues with buttock pain) Review of Systems 10-point ROS is otherwise unremarkable Physical Examination - Vital Signs Temperature: 96.9 F Blood Pressure: 122/57 Pulse: 69 Respirations: 18 Pulse Ox (%): 96 Assessment & Plan Physician Review Additional Text: Physical Exam General: +dementia / AAOx2, nauseated HEENT: Mucous membr. moist/pink Pulm: Diminished at bases, shallow inspiration Cardiovascular: Regular rate/rhythm, trace b/l lower extremity edema, wrapped w ith JUMA bandages Gastrointestinal: Soft and benign, Non-distended, No tenderness Integumentary: stage 4 Sacral decubitus ulcer and right buttock stage 3 ulcer Problem List ESRD with Volume overload ESRD (end stage renal disease) on dialysis Acute hypoxia secondary to volume overload and pneumonia Pressure ulcer of sacral region, stage 4 Right ischial pressure sore, stage 3 Type 1 diabetes mellitus on insulin therapy Anemia in chronic kidney disease Echocardiogram: Diastolic dysfunction, normal LV EF: 73%, LV hypertrophy. CXR today with worsening right lung opacity CRP elevated. Pro calcitonin elevated but down trending. ID consulted, recommend continuing meropenem and vancomycin Blood culture with no growth so far. Will try and obtain sputum culture Obtain CT chest to further evaluate pulmonary opacities Hemodialysis per nephrology. Pressure ulcer precautions- Frequent turning. Local wound care. Continue other home medications. Imdur on hold due to hypotension during dialysis. Dispo: anticipate hospitalization >2 more days, worsening R opacity Time Spent Managing Pts Care (In Minutes): 35
--- NOTE | 2020-08-09 16:28 | RAD REPORT ---
EXAM DESCRIPTION: CT - Pelvis Wo Cont - 08/09/2020 2:40 pm CLINICAL HISTORY: assess for sacral wound oseomyelitis COMPARISON: Lumbar Spine Wo Con dated 07/01/2020; Pelvis dated 06/20/2018 TECHNIQUE: Axial noncontrast 5 millimeter thick images of the pelvis were obtained and extend into t he upper thighs. No oral contrast administered. Sagittal and coronal reformatted images were generate d and reviewed. The CT scan was performed using dose optimization techniques as appropriate to a performed exam incl uding one or more of the following: Automated exposure control, adjustment of the mA and/or kV accord ing to patient size (this includes techniques or standardized protocols for targeted exams where dose is matched to indication/reason for exam) and use of iterative reconstruction technique. FINDINGS: Fluid retention is present throughout the subcutaneous fatty tissues and to a lesser degre e in the peritoneal and retroperitoneal tissues. Soft tissues are most prominent over the coccygeal a nd lower sacrum soft tissues posteriorly. Air is present in the soft tissues in the midline and a pun ctate air focus approximately 4 cm left lateral of midline. There is cortical thinning and bone loss in the posterior margins of the central canal and significant lucency within a coccygeal body. These are believed to be osteomyelitis changes. SI joint degenerative change seen. Advanced degenerative change present in the lower lumbar spine. Large amount of stool and contrast material are present filling but not dilating the visualized colon . No small bowel dilatation. Calcified 5 centimeter mass in the right lower quadrant is probably old calcified hematoma. This is in proximity to the external iliac artery but probably not calcified aneu rysm. No free air or pneumatosis in the peritoneal or retroperitoneal spaces. Patient has a periumbilical f at only hernia. IMPRESSION: Osteomyelitis changes are present in the posterior elements midline lower sacrum and wit hin the coccygeal body. Soft tissue thickening and edema in the tissues posterior to the coccyx and lower sacrum. Punctate ai r densities are present possibly from infection, part of an open wound or debridement. Prominent fluid retention pattern throughout the subcutaneous fatty tissues and within the peritoneal and retroperitoneal fatty tissues.
--- NOTE | 2020-08-09 16:40 | RAD REPORT ---
EXAM DESCRIPTION: CT - Thorax Con - 08/09/2020 4:08 pm CLINICAL HISTORY: hypoxia, worsening R-sided opacity COMPARISON: Thorax Wo Con dated 06/16/2017 TECHNIQUE: Axial 5 mm thick images of the chest were obtained without IV contrast. All CT scans are performed using dose optimization technique as appropriate and may include automated exposure control or mA/KV adjustment according to patient size. FINDINGS: Left lower lobe opacification is present. This is seen as consolidation in the midportion and atelectasis in the posterior gutter. Patient has a small, bordering on moderate, left pleural eff usion as well. Small amount of fluid is present along the fissure. There is fluid along the superior aspect of the major fissure on the right with a minimal right pleural effusion. A small amount of ate lectasis present in the medial gutter on the right. Patchy lingula opacification is present suspected to be atelectasis. No endobronchial lesion. No pneumothorax or pleural based mass. No abnormal mediastinal or hilar masses or lymphadenopathy seen. No gross aortic or pulmonary artery finding suspected. Aortic and Coronary artery calcifications are present. No cardiomegaly is present . Pericardial effusion is present up to 12 mm in thickness. No chest wall mass or abnormal axillary lymphadenopathy. Large bilateral breast implants are in place . No implant rupture. Fluid retention is seen throughout the subcutaneous fatty tissues. IMPRESSION: Combination left lower lobe pneumonia and atelectasis. Patient has a small, bordering on moderate, left pleural effusion. Minimal right-sided pleural effusion. Pericardial effusion up to 12 mm in thickness. Fluid retention pattern throughout the subcutaneous fatty tissues of the chest.
--- NOTE | 2020-08-09 20:03 | P.PN ---
Date of Service: 08/09/20 Vital Signs Temp Pulse Resp BP Pulse Ox 96.9 F 71 20 120/57 L 93 08/09/20 16:00 08/09/20 16:00 08/09/20 16:00 08/09/20 16:00 08/09/20 16:00 Medications Acetaminophen/Codeine Phosphate (Codeine 30mg/Apap 300mg Tab) 2 tab PO Q6H PRN PRN Reason: Pain scale 5-7 (Moderate) Last Admin: 08/09/20 10:08 Dose: 2 tab Documented by: Albuterol Sulfate (Albuterol 2.5 Mg/3 Ml Neb Lavern) 2.5 mg NEB [id number] PRN PRN Reason: SHORTNESS OF BREATH Ascorbic Acid (Ascorbic Acid 500 Mg Tablet) 1,000 mg PO DAILY [facility] Last Admin: 08/09/20 09:12 Dose: 1,000 mg Documented by: Aspirin (Aspirin Ec 81 Mg Tab) 81 mg PO DAILY [facility] Last Admin: 08/09/20 09:00 Dose: Not Given Documented by: Atorvastatin Calcium (Atorvastatin 10 Mg Tab) 10 mg PO BEDTIME [facility] Last Admin: 08/08/20 21:30 Dose: 10 mg Documented by: Calcitriol (Calcitrol 0.25 Mcg Cap) 0.5 mcg PO DAILY [facility] Calcium Carbonate/Glycine (Calcium Carbonate Chew 500mg Tab) 1,000 mg PO TID [facility] Last Admin: 08/09/20 13:21 Dose: 1,000 mg Documented by: Cholecalciferol (Vitamin D 5,000 Unit Cap) 5,000 unit PO DAILY [facility] Last Admin: 08/09/20 09:13 Dose: 5,000 unit Documented by: Dextrose (D50w 25 Gm/50 Ml Vial) 12.5 gm IV PRN PRN; Protocol PRN Reason: HYPOGLYCEMIA Enteral Nutritional Formula (Nepro Shake 237 Ml Can) 237 ml PO BID [facility] Last Admin: 08/09/20 09:15 Dose: 237 ml Documented by: Famotidine (Famotidine 20 Mg Tab) 20 mg PO DAILY [facility]; Protocol Last Admin: 08/09/20 09:12 Dose: 20 mg Documented by: Glucagon (Glucagon 1 Mg/Vial) 1 mg IM 1X PRN; Protocol PRN Reason: HYPOGLYCEMIA Guaifenesin (Guaifenesin 600 Mg Sa Tab) 1,200 mg PO BID [facility] Last Admin: 08/09/20 09:14 Dose: 1,200 mg Documented by: Heparin Sodium (Porcine) (Heparin 5000 Unit/Ml 1 Ml Vial) 5,000 unit SQ Q12HR [facility] Last Admin: 08/09/20 09:14 Dose: 5,000 unit Documented by: Home Med (Biotin [Biotin]) 1 cap PO DAILY [facility] Last Admin: 08/09/20 09:00 Dose: Not Given Documented by: Home Med (Mecobalamin [B12 Active]) 50,000 mg PO DAILY [facility] Hydralazine HCl (Hydralazine Hcl 20 Mg/Ml Vial) 10 mg IV Q6HP PRN PRN Reason: Titrate to SBP (MUST DEFINE) Vancomycin HCl (Vancomycin 1 Gm/250 Ml Ns Ivpb) 1 gm in 250 mls @ 166.667 mls/hr IVPB Q48H [facility]; Protocol Last Admin: 08/09/20 15:11 Dose: 250 mls Documented by: Meropenem 500 mg/ Sodium (Chloride) 100 mls @ 100 mls/hr IV Q12HR [facility] Last Admin: 08/09/20 09:12 Dose: 100 mls Documented by: Insulin Human Regular (Insulin -Regular Human 50 Unit/0.5 Ml Ml) 0 unit SQ ACHS [facility]; Protocol Last Admin: 08/09/20 16:42 Dose: 4 unit Documented by: Levothyroxine Sodium (Levothyroxine Sod 0.075 Mg Tab) 0.15 mg PO DAILY [facility] Last Admin: 08/09/20 09:13 Dose: 0.15 mg Documented by: Morphine Sulfate (Morphine 2 Mg/Ml Syr) 2 mg IV Q4H PRN PRN Reason: Pain scale 5-7 (Moderate) Last Admin: 08/08/20 11:31 Dose: 2 mg Documented by: Nutritional Formula (Promod 30 Ml Dose) 30 ml PO TIDWM [facility] Last Admin: 08/09/20 16:45 Dose: Not Given Documented by: Ondansetron HCl (Ondansetron 4 Mg/2 Ml Vial) 4 mg IV Q8H PRN PRN Reason: NAUSEA / VOMITING Last Admin: 08/09/20 17:35 Dose: 4 mg Documented by: Pantoprazole Sodium (Pantoprazole 40mg Tablet) 40 mg PO DAILY [facility] Last Admin: 08/09/20 09:13 Dose: 40 mg Documented by: Sodium Chloride (Flush Normal Saline 10 Ml) 10 ml IV BID [facility] Last Admin: 08/09/20 09:00 Dose: 10 ml Documented by: Sodium Hypochlorite (Sodium Hypochlorite 0.25% 473 Ml) 1 appl TOP DAILY [facility] Vitamin B Complex (Vitamin B Complex 1 Cap) 1 cap PO DAILY [facility] Last Admin: 08/09/20 09:13 Dose: 1 cap Documented by: Vitamin B Complex/Vit C/Folic Acid (Multivitamins,Therapeut 1 Tab) 1 tab PO DAILY [facility] Last Admin: 08/09/20 09:13 Dose: 1 tab Documented by: Zinc Sulfate (Zinc Sulfate 220 Mg Cap) 220 mg PO DAILY [facility] Last Admin: 08/09/20 09:14 Dose: 220 mg Documented by: Assessment/ Plan: Nephrology No acute cardiac or pulmonary complaints. No CP or SOB. reports she is doing better today. No acute events overnight. Vitals, medications, blood work and imaging reviewed in the chart. NAD. MMM. Neck supple. CTA. RRR. Soft Abd. No C/C. Hip edema1+. No rash. AAO. Poor hearing. Normal Speech. A/P: Continue the current POC and Medications other than the changes listed. AM Labs PRN. Recommend daily weight. Please see the orders for complete details. ESRD -HD MWF -Next HD tomorrow HTN with CKD/ CHF -Hydralazine PRN A/C Diastolic CHF -Low sodium diet -UF with HD DM I with Polyneuropathy/ CKD -No sugar diet -Renal diet Severe malnutriton with hypoalbuminemia -Continue Promod -Give albumin with HD Anemia in CKD -Continue Retacrit TAWNYA/ Secondary HyperPTH -Continue Vitamin D3 Stage 3 Sacral Pressure Ulcer -Air mattress -Tylenol #3 as needed for pain. -CT pelvis pending. LLL PNA -Continue Levaquin and Meropenem -CT chest pending.
[2020-08-09] MEDS: ATORVASTATIN 10 MG TAB PO SCH (22:04)
[2020-08-10 06:01] LABS: Absolute Lymphocytes (CBC) 0.5 K/uL (0.7-4.9); Basophils % 1.3 % (0-1.3); Hematocrit 30.4 % (36.0-45.0); Lymphocytes % 8.4 % (15.3-44.8); MPV 8.6 fL (7.6-11.3); RBC Red Blood Cell Count 3.08 M/uL (3.86-4.86)
[2020-08-10 06:18] LABS: Albumin 1.8 g/dL (3.4-5.0); Magnesium 2.5 mg/dL (1.8-2.4); Phosphorus 3.9 mg/dL (2.5-4.9); Potassium 4.1 mmol/L (3.5-5.1)
[2020-08-10] MEDS: CODEINE 30MG/APAP 300MG TAB PO PRN ×2 (07:42)
[2020-08-10] MEDS: PROMOD 30 ML DOSE PO SCH ×2 (08:00→12:00)
--- NOTE | 2020-08-10 08:53 | RAD REPORT ---
EXAM DESCRIPTION: RAD - Chest Single View - 08/10/2020 5:36 am CLINICAL HISTORY: pneumonia Chest pain. COMPARISON: Chest Single View dated 08/09/2020; Chest Single View dated 08/08/2020; Chest Single View da derek 08/05/2020; Chest Single View dated 04/06/2020; Thorax Wo Con dated 08/09/2020 FINDINGS: Portable technique limits examination quality. Since 08/09/2020, there has been mild improvement in right lung aeration. No significant change is se en in the left lung aeration since the prior study. Heart size is mildly prominent. No displaced frac tures. IMPRESSION: Mild improvement in right lung aeration noted since comparative study.
[2020-08-10] MEDS: NEPRO SHAKE 237 ML CAN PO SCH ×2 (09:00→21:00)
[2020-08-10] MEDS: BIOTIN 5000 MCG PO SCH (09:00)
[2020-08-10] MEDS ORDERED: ALBUMIN HUMAN 25% 100 ML IV ONE (09:45)
[2020-08-10] MEDS: VITAMIN B COMPLEX 1 CAP PO SCH (09:55)
[2020-08-10] MEDS: MULTIVITAMINS,THERAPEUT 1 TAB PO SCH (09:55)
[2020-08-10] MEDS: CALCIUM CARBONATE CHEW 500MG TAB PO SCH ×3 (09:55→21:51)
[2020-08-10] MEDS: GUAIFENESIN 600 MG SA TAB PO SCH ×2 (09:56→21:51)
[2020-08-10] MEDS: ASCORBIC ACID 500 MG TABLET PO SCH (09:56)
[2020-08-10] MEDS: ZINC SULFATE 220 MG CAP PO SCH (09:56)
[2020-08-10] MEDS: VITAMIN D 5,000 UNIT CAP PO SCH (09:56)
[2020-08-10] MEDS: LEVOTHYROXINE SOD 0.075 MG TAB PO SCH (09:56)
[2020-08-10] MEDS: ASPIRIN EC 81 MG TAB PO SCH (09:56)
[2020-08-10] MEDS: FAMOTIDINE 20 MG TAB PO SCH (09:56)
[2020-08-10] MEDS: PANTOPRAZOLE 40MG TABLET PO SCH (09:57)
[2020-08-10] MEDS: CALCITROL 0.25 MCG CAP PO SCH (09:57)
[2020-08-10] MEDS: INSULIN -REGULAR HUMAN 50 UNIT/0.5 ML ML SQ SCH ×4 (09:57→21:00)
[2020-08-10] MEDS: HEPARIN 5000 UNIT/ML 1 ML VIAL SQ SCH ×2 (09:58→21:51)
[2020-08-10] MEDS: ONDANSETRON 4 MG/2 ML VIAL IV PRN (10:00)
[2020-08-10] MEDS: SODIUM HYPOCHLORITE 0.25% 473 ML TOP SCH (10:01)
[2020-08-10] MEDS: EPOETIN ALFA-EPBX 4,000 UNIT/ML VIAL SQ SCH (12:22)
[2020-08-10] MEDS ORDERED: BISACODYL 10 MG RECTAL SUPP PR ONE (12:29)
--- NOTE | 2020-08-10 12:34 | P.PN ---
Subjective Date of Service: 08/10/20 Chief Complaint: Shortness of breath Subjective: No new changes (feels about the same as yesterday - breathing "ok", still with some swelling, reporting lots of pain in buttocks area. passed small hard "hailey" stool overnight) Review of Systems 10-point ROS is otherwise unremarkable Physical Examination - Vital Signs Temperature: 96.9 F Blood Pressure: 92/52 Pulse: 66 Respirations: 18 Pulse Ox (%): 100 - Physical Exam Other Physical/Emotional Findings: General: Moderate distress, Confused, Other. HEENT: Atraumatic, Normocephalic. Neck: Supple, 2+ carotid pulse no bruit. Respiratory: Clear to auscultation bilaterally, Crackles/rales. Cardiovascular: Regular rate/rhythm, Normal S1 S2. Capillary refill: <2 Seconds. Gastrointestinal: Normal bowel sounds, Soft and benign. Musculoskeletal: Other (Bilateral lower extremities wrapped with Wayne wraps). Integumentary: right buttock stage 3 pressure wound:5x3cm, majority slough tissue present, periwound tissue shows purple/red discoloration. Sacral pressure wound stage 4: 2.5x1x1 cm. tunnling at 1 oclock position measuring 3.2 cm. Base of wound shows granulation tissue-minimal drainage. sacrococcyx DTI: nonblanching purple discolration noted over area, surrounding stage 4 sacral wound. . Lymphatics: No axilla or inguinal lymphadenopathy Assessment & Plan Physician Review Additional Text: Physical Exam General: +dementia / AAOx2, in pain HEENT: Mucous membr. moist/pink Pulm: Diminished at bases, shallow inspiration, mild crackles Cardiovascular: Regular rate/rhythm, trace b/l lower extremity edema, wrapped with WAYNE bandages Gastrointestinal: soft, nontender / nondistended Integumentary: stage 4 Sacral decubitus ulcer and right buttock stage 3 ulcer Problem List ESRD with Volume overload ESRD (end stage renal disease) on dialysis Acute hypoxia secondary to volume overload and pneumonia Pressure ulcer of sacral region, stage 4 Right ischial pressure sore, stage 3 Type 1 diabetes mellitus on insulin therapy Anemia in chronic kidney disease Echocardiogram: Diastolic dysfunction, normal LV EF: 73%, LV hypertrophy. CXR today with slight improvement of R opacity - CT on 08/09- pulm edema, small pleural effusion CRP elevated. Pro calcitonin elevated. ID consulted, recommend continuing meropenem and vancomycin CT pelvis, still with signs of sacral osteomyelitis Blood culture with no growth so far. Will try and obtain sputum culture Hemodialysis per nephrology. Pressure ulcer precautions- Frequent turning. Local wound care. Continue other home medications. Imdur on hold due to hypotension during dialysis. Dispo: anticipate hospitalization >2 more days, worsening R opacity Time Spent Managing Pts Care (In Minutes): 35
[2020-08-10] MEDS: Meropenem 500 MG in NA CHLORIDE 0.9% 100 ML IV SCH ×2 (14:34→21:50)
--- NOTE | 2020-08-10 14:49 | P.PN ---
Subjective Date of Service: 08/10/20 Chief Complaint: Shortness of breath Patient seen examined at bedside, no acute complaints. WOund VAC ordered for sacral stage 4 wound-125 mmHg intermittent pressure. Review of Systems 10-point ROS is otherwise unremarkable Physical Examination - Vital Signs Temperature: 96.9 F Blood Pressure: 92/52 Pulse: 66 Respirations: 18 Pulse Ox (%): 100 - Physical Exam Other Physical/Emotional Findings: General: Moderate distress, Confused, Other. HEENT: Atraumatic, Normocephalic. Neck: Supple, 2+ carotid pulse no bruit. Respiratory: Clear to auscultation bilaterally, Crackles/rales. Cardiovascular: Regular rate/rhythm, Normal S1 S2. Capillary refill: <2 Seconds. Gastrointestinal: Normal bowel sounds, Soft and benign. Musculoskeletal: Other (Bilateral lower extremities wrapped with Wayne wraps). Integumentary: right buttock stage 3 pressure wound:5x3cm, majority slough tissue present, periwound tissue shows purple/red discoloration. Sacral pressure wound stage 4: 2.5x1x1 cm. tunnling at 1 oclock position measuring 3.2 cm. Base of wound shows granulation tissue-minimal drainage. sacrococcyx stage 1: redness noted around area, surrounding stage 4 sacral wound. . Lymphatics: No axilla or inguinal lymphadenopathy - Studies Acetaminophen/Codeine Phosphate (Codeine 30mg/Apap 300mg Tab) 2 tab PO Q6H PRN PRN Reason: Pain scale 5-7 (Moderate) Last Admin: 08/10/20 07:42 Dose: 2 tab Documented by: Albuterol Sulfate (Albuterol 2.5 Mg/3 Ml Neb Lavern) 2.5 mg NEB [id number] PRN PRN Reason: SHORTNESS OF BREATH Ascorbic Acid (Ascorbic Acid 500 Mg Tablet) 1,000 mg PO DAILY [facility] Last Admin: 08/10/20 09:56 Dose: 1,000 mg Documented by: Aspirin (Aspirin Ec 81 Mg Tab) 81 mg PO DAILY [facility] Last Admin: 08/10/20 09:56 Dose: 81 mg Documented by: Atorvastatin Calcium (Atorvastatin 10 Mg Tab) 10 mg PO BEDTIME [facility] Last Admin: 08/09/20 22:04 Dose: 10 mg Documented by: Calcitriol (Calcitrol 0.25 Mcg Cap) 0.5 mcg PO DAILY [facility] Last Admin: 08/10/20 09:57 Dose: 0.5 mcg Documented by: Calcium Carbonate/Glycine (Calcium Carbonate Chew 500mg Tab) 1,000 mg PO TID [facility] Last Admin: 08/10/20 14:33 Dose: 1,000 mg Documented by: Cholecalciferol (Vitamin D 5,000 Unit Cap) 5,000 unit PO DAILY [facility] Last Admin: 08/10/20 09:56 Dose: 5,000 unit Documented by: Dextrose (D50w 25 Gm/50 Ml Vial) 12.5 gm IV PRN PRN; Protocol PRN Reason: HYPOGLYCEMIA Enteral Nutritional Formula (Nepro Shake 237 Ml Can) 237 ml PO BID [facility] Last Admin: 08/10/20 09:00 Dose: Not Given Documented by: Famotidine (Famotidine 20 Mg Tab) 20 mg PO DAILY [facility]; Protocol Last Admin: 08/10/20 09:56 Dose: 20 mg Documented by: Glucagon (Glucagon 1 Mg/Vial) 1 mg IM 1X PRN; Protocol PRN Reason: HYPOGLYCEMIA Guaifenesin (Guaifenesin 600 Mg Sa Tab) 1,200 mg PO BID [facility] Last Admin: 08/10/20 09:56 Dose: 1,200 mg Documented by: Heparin Sodium (Porcine) (Heparin 5000 Unit/Ml 1 Ml Vial) 5,000 unit SQ Q12HR [facility] Last Admin: 08/10/20 09:58 Dose: 5,000 unit Documented by: Home Med (Biotin [Biotin]) 1 cap PO DAILY [facility] Last Admin: 08/10/20 09:00 Dose: Not Given Documented by: Home Med (Mecobalamin [B12 Active]) 50,000 mg PO DAILY [facility] Hydralazine HCl (Hydralazine Hcl 20 Mg/Ml Vial) 10 mg IV Q6HP PRN PRN Reason: Titrate to SBP (MUST DEFINE) Vancomycin HCl (Vancomycin 1 Gm/250 Ml Ns Ivpb) 1 gm in 250 mls @ 166.667 mls/hr IVPB Q48H [facility]; Protocol Last Admin: 08/09/20 15:11 Dose: 250 mls Documented by: Meropenem 500 mg/ Sodium (Chloride) 100 mls @ 100 mls/hr IV Q12HR [facility] Last Admin: 08/10/20 14:34 Dose: 100 mls Documented by: Insulin Human Regular (Insulin -Regular Human 50 Unit/0.5 Ml Ml) 0 unit SQ ACHS [facility]; Protocol Last Admin: 08/10/20 11:30 Dose: Not Given Documented by: Levothyroxine Sodium (Levothyroxine Sod 0.075 Mg Tab) 0.15 mg PO DAILY [facility] Last Admin: 08/10/20 09:56 Dose: 0.15 mg Documented by: Morphine Sulfate (Morphine 2 Mg/Ml Syr) 2 mg IV Q4H PRN PRN Reason: Pain scale 5-7 (Moderate) Last Admin: 08/08/20 11:31 Dose: 2 mg Documented by: Nutritional Formula (Promod 30 Ml Dose) 30 ml PO TIDWM [facility] Last Admin: 08/10/20 12:00 Dose: Not Given Documented by: Ondansetron HCl (Ondansetron 4 Mg/2 Ml Vial) 4 mg IV Q8H PRN PRN Reason: NAUSEA / VOMITING Last Admin: 08/10/20 10:00 Dose: 4 mg Documented by: Pantoprazole Sodium (Pantoprazole 40mg Tablet) 40 mg PO DAILY [facility] Last Admin: 08/10/20 09:57 Dose: 40 mg Documented by: Sodium Chloride (Flush Normal Saline 10 Ml) 10 ml IV BID [facility] Last Admin: 08/10/20 10:01 Dose: 10 ml Documented by: Sodium Hypochlorite (Sodium Hypochlorite 0.25% 473 Ml) 1 appl TOP DAILY [facility] Last Admin: 08/10/20 10:01 Dose: 1 appl Documented by: Vitamin B Complex (Vitamin B Complex 1 Cap) 1 cap PO DAILY [facility] Last Admin: 08/10/20 09:55 Dose: 1 cap Documented by: Vitamin B Complex/Vit C/Folic Acid (Multivitamins,Therapeut 1 Tab) 1 tab PO DAILY [facility] Last Admin: 08/10/20 09:55 Dose: 1 tab Documented by: Zinc Sulfate (Zinc Sulfate 220 Mg Cap) 220 mg PO DAILY [facility] Last Admin: 08/10/20 09:56 Dose: 220 mg Documented by: Assessment And Plan - Plan Assessment: -pneumonia -stage IV sacral ulcer w osteomyelitis -stage III right buttocks ulcer -DTI to sacrococcyx area -ESRD on HD -diabetes type 2 -anemia plan: -pneumonia: Repeat chest x-ray performed on 08/10 showed a improving right sided pulmonary opacities with no change in left side. Continue merum-start: 08/08 stop: 08/22 -stage IV sacral ulcer w osteomyelitis: CT pelvis confirmed osteomyelitis- continue vancomycin for 6 weeks from start stage. Start: 08/07 Stop: 09/18. wound VAC ordered. -stage III right buttocks ulcer: apply santyl and cover with foam qMWF -sacrococcyx stage 1: apply barrier cream to area and continue to offload -offload all pressure wounds and avoid direct pressure-air mattress in place -medical management per primary team -continue monitor CBC and BMP-no leukocytosis at this time -continue to monitor percent infection Plan of care discussed with Dr. Celis. Thank you for consultation. Physician Review: Patient Assessed, Agree with Above Assessment and Plan
--- NOTE | 2020-08-10 19:39 | P.PN ---
Date of Service: 08/10/20 Vital Signs Temp Pulse Resp BP Pulse Ox 96.7 F L 69 16 154/70 H 95 08/10/20 16:00 08/10/20 16:00 08/10/20 16:00 08/10/20 16:00 08/10/20 16:00 Medications Acetaminophen/Codeine Phosphate (Codeine 30mg/Apap 300mg Tab) 2 tab PO Q6H PRN PRN Reason: Pain scale 5-7 (Moderate) Last Admin: 08/10/20 07:42 Dose: 2 tab Documented by: Albuterol Sulfate (Albuterol 2.5 Mg/3 Ml Neb Lavern) 2.5 mg NEB [id number] PRN PRN Reason: SHORTNESS OF BREATH Ascorbic Acid (Ascorbic Acid 500 Mg Tablet) 1,000 mg PO DAILY [facility] Last Admin: 08/10/20 09:56 Dose: 1,000 mg Documented by: Aspirin (Aspirin Ec 81 Mg Tab) 81 mg PO DAILY [facility] Last Admin: 08/10/20 09:56 Dose: 81 mg Documented by: Atorvastatin Calcium (Atorvastatin 10 Mg Tab) 10 mg PO BEDTIME [facility] Last Admin: 08/09/20 22:04 Dose: 10 mg Documented by: Calcitriol (Calcitrol 0.25 Mcg Cap) 0.5 mcg PO DAILY [facility] Last Admin: 08/10/20 09:57 Dose: 0.5 mcg Documented by: Calcium Carbonate/Glycine (Calcium Carbonate Chew 500mg Tab) 1,000 mg PO TID [facility] Last Admin: 08/10/20 14:33 Dose: 1,000 mg Documented by: Cholecalciferol (Vitamin D 5,000 Unit Cap) 5,000 unit PO DAILY [facility] Last Admin: 08/10/20 09:56 Dose: 5,000 unit Documented by: Dextrose (D50w 25 Gm/50 Ml Vial) 12.5 gm IV PRN PRN; Protocol PRN Reason: HYPOGLYCEMIA Enteral Nutritional Formula (Nepro Shake 237 Ml Can) 237 ml PO BID [facility] Last Admin: 08/10/20 09:00 Dose: Not Given Documented by: Famotidine (Famotidine 20 Mg Tab) 20 mg PO DAILY [facility]; Protocol Last Admin: 08/10/20 09:56 Dose: 20 mg Documented by: Glucagon (Glucagon 1 Mg/Vial) 1 mg IM 1X PRN; Protocol PRN Reason: HYPOGLYCEMIA Guaifenesin (Guaifenesin 600 Mg Sa Tab) 1,200 mg PO BID [facility] Last Admin: 08/10/20 09:56 Dose: 1,200 mg Documented by: Heparin Sodium (Porcine) (Heparin 5000 Unit/Ml 1 Ml Vial) 5,000 unit SQ Q12HR [facility] Last Admin: 08/10/20 09:58 Dose: 5,000 unit Documented by: Home Med (Biotin [Biotin]) 1 cap PO DAILY [facility] Last Admin: 08/10/20 09:00 Dose: Not Given Documented by: Home Med (Mecobalamin [B12 Active]) 50,000 mg PO DAILY [facility] Hydralazine HCl (Hydralazine Hcl 20 Mg/Ml Vial) 10 mg IV Q6HP PRN PRN Reason: Titrate to SBP (MUST DEFINE) Vancomycin HCl (Vancomycin 1 Gm/250 Ml Ns Ivpb) 1 gm in 250 mls @ 166.667 mls/hr IVPB Q48H [facility]; Protocol Last Admin: 08/09/20 15:11 Dose: 250 mls Documented by: Meropenem 500 mg/ Sodium (Chloride) 100 mls @ 100 mls/hr IV Q12HR [facility] Last Admin: 08/10/20 14:34 Dose: 100 mls Documented by: Insulin Human Regular (Insulin -Regular Human 50 Unit/0.5 Ml Ml) 0 unit SQ ACHS [facility]; Protocol Last Admin: 08/10/20 16:30 Dose: Not Given Documented by: Levothyroxine Sodium (Levothyroxine Sod 0.075 Mg Tab) 0.15 mg PO DAILY [facility] Last Admin: 08/10/20 09:56 Dose: 0.15 mg Documented by: Morphine Sulfate (Morphine 2 Mg/Ml Syr) 2 mg IV Q4H PRN PRN Reason: Pain scale 5-7 (Moderate) Last Admin: 08/08/20 11:31 Dose: 2 mg Documented by: Nutritional Formula (Promod 30 Ml Dose) 30 ml PO TIDWM [facility] Last Admin: 08/10/20 12:00 Dose: Not Given Documented by: Ondansetron HCl (Ondansetron 4 Mg/2 Ml Vial) 4 mg IV Q8H PRN PRN Reason: NAUSEA / VOMITING Last Admin: 08/10/20 10:00 Dose: 4 mg Documented by: Pantoprazole Sodium (Pantoprazole 40mg Tablet) 40 mg PO DAILY [facility] Last Admin: 08/10/20 09:57 Dose: 40 mg Documented by: Sodium Chloride (Flush Normal Saline 10 Ml) 10 ml IV BID [facility] Last Admin: 08/10/20 10:01 Dose: 10 ml Documented by: Sodium Hypochlorite (Sodium Hypochlorite 0.25% 473 Ml) 1 appl TOP DAILY [facility] Last Admin: 08/10/20 10:01 Dose: 1 appl Documented by: Vitamin B Complex (Vitamin B Complex 1 Cap) 1 cap PO DAILY [facility] Last Admin: 08/10/20 09:55 Dose: 1 cap Documented by: Vitamin B Complex/Vit C/Folic Acid (Multivitamins,Therapeut 1 Tab) 1 tab PO DAILY [facility] Last Admin: 08/10/20 09:55 Dose: 1 tab Documented by: Zinc Sulfate (Zinc Sulfate 220 Mg Cap) 220 mg PO DAILY [facility] Last Admin: 08/10/20 09:56 Dose: 220 mg Documented by: Assessment/ Plan: Nephrology No acute cardiac or pulmonary complaints. No CP or SOB. +Appetite No acute events overnight. Vitals, medications, blood work and imaging reviewed in the chart. NAD. MMM. Neck supple. CTA. RRR. Soft Abd. No C/C. Hip edema1+. No rash. AAO. Poor hearing. Normal Speech. Sacral ulcer A/P: Continue the current POC and Medications other than the changes listed. AM Labs PRN. Recommend daily weight. Please see the orders for complete details. ESRD -HD MWF -HD today HTN with CKD/ CHF -Hydralazine PRN A/C Diastolic CHF -Low sodium diet -UF with HD DM I with Polyneuropathy/ CKD -No sugar diet -Renal diet Severe malnutriton with hypoalbuminemia -Continue Promod -Give albumin with HD Anemia in CKD -Continue Retacrit TAWNYA/ Secondary HyperPTH -Continue Vitamin D3 Stage 3 Sacral Pressure Ulcer -Air mattress -Tylenol #3 as needed for pain. LLL PNA -Continue Vancomycin and Meropenem Sacral ulcer with osteomyelitis -Wound care as ordered -Continue Vancomycin and Meropenem
[2020-08-10] MEDS: DOCUSATE NA 100 MG CAP PO SCH (21:50)
[2020-08-10] MEDS: ATORVASTATIN 10 MG TAB PO SCH (21:52)
[2020-08-11] MEDS: CODEINE 30MG/APAP 300MG TAB PO PRN ×2 (01:42→21:59)
[2020-08-11 04:41] LABS: Absolute Lymphocytes (CBC) 0.5 K/uL (0.7-4.9); Basophils % 1.1 % (0-1.3); Hematocrit 30.9 % (36.0-45.0); Lymphocytes % 8.1 % (15.3-44.8); MPV 8.5 fL (7.6-11.3); RBC Red Blood Cell Count 3.15 M/uL (3.86-4.86)
[2020-08-11 05:13] LABS: Albumin 2.4 g/dL (3.4-5.0); C-Reactive Protein 97.8 mg/L (<3.00); Magnesium 2.4 mg/dL (1.8-2.4); Phosphorus 3.1 mg/dL (2.5-4.9); Potassium 3.5 mmol/L (3.5-5.1)
[2020-08-11] MEDS: INSULIN -REGULAR HUMAN 50 UNIT/0.5 ML ML SQ SCH ×4 (07:30→21:00)
[2020-08-11] MEDS: PROMOD 30 ML DOSE PO SCH ×3 (08:00→17:00)
[2020-08-11] MEDS: Meropenem 500 MG in NA CHLORIDE 0.9% 100 ML IV SCH ×2 (09:00→21:58)
[2020-08-11] MEDS: BIOTIN 5000 MCG PO SCH (09:00)
[2020-08-11] MEDS: CYANOCOBALAMIN 1,000 MCG TAB PO SCH (09:00)
[2020-08-11] MEDS: NEPRO SHAKE 237 ML CAN PO SCH ×2 (09:00→21:00)
[2020-08-11] MEDS: SODIUM HYPOCHLORITE 0.25% 473 ML TOP SCH (09:00)
[2020-08-11] MEDS: GUAIFENESIN 600 MG SA TAB PO SCH ×2 (09:00→22:00)
[2020-08-11] MEDS: VITAMIN D 5,000 UNIT CAP PO SCH (09:00)
[2020-08-11] MEDS: HEPARIN 5000 UNIT/ML 1 ML VIAL SQ SCH ×2 (09:00→21:59)
[2020-08-11] MEDS: CALCITROL 0.25 MCG CAP PO SCH (09:00)
[2020-08-11] MEDS: ONDANSETRON 4 MG/2 ML VIAL IV PRN (09:19)
[2020-08-11] MEDS: CALCIUM CARBONATE CHEW 500MG TAB PO SCH ×3 (10:56→21:59)
[2020-08-11] MEDS: ASPIRIN EC 81 MG TAB PO SCH (10:58)
[2020-08-11] MEDS: PANTOPRAZOLE 40MG TABLET PO SCH (10:59)
[2020-08-11] MEDS: MULTIVITAMINS,THERAPEUT 1 TAB PO SCH (10:59)
[2020-08-11] MEDS: ZINC SULFATE 220 MG CAP PO SCH (10:59)
[2020-08-11] MEDS: VITAMIN B COMPLEX 1 CAP PO SCH (10:59)
[2020-08-11] MEDS: DOCUSATE NA 100 MG CAP PO SCH ×2 (10:59→21:00)
[2020-08-11] MEDS: ASCORBIC ACID 500 MG TABLET PO SCH (11:00)
[2020-08-11] MEDS: LEVOTHYROXINE SOD 0.075 MG TAB PO SCH (11:00)
[2020-08-11] MEDS: FAMOTIDINE 20 MG TAB PO SCH (11:00)
[2020-08-11] MEDS ORDERED: FLEET ENEMA ADULT PR ONE (11:41)
--- NOTE | 2020-08-11 12:29 | P.PN ---
Subjective Date of Service: 08/11/20 Chief Complaint: Shortness of breath Subjective: No new changes (oxygen requirement improving, swelling improved somewhat, continues with intermittent nausea - worsened by movement/excitement. only small BM yesterday, feels constipated. continues with buttock pain) Review of Systems 10-point ROS is otherwise unremarkable Physical Examination - Vital Signs Temperature: 97.6 F Blood Pressure: 106/51 Pulse: 69 Respirations: 18 Pulse Ox (%): 99 Assessment & Plan Physician Review Additional Text: Physical Exam General: +dementia / AAOx2, in pain, nauseated HEENT: Mucous membr. moist/pink Pulm: Diminished at bases, shallow inspiration Cardiovascular: Regular rate/rhythm, trace b/l lower extremity edema up to thighs, wrapped with JUMA bandages Gastrointestinal: soft, nontender / nondistended Integumentary: stage 4 Sacral decubitus ulcer and right buttock stage 3 ulcer Problem List ESRD with Volume overload ESRD (end stage renal disease) on dialysis Acute hypoxia secondary to volume overload and left lower lobe pneumonia Pressure ulcer of sacral region, stage 4 Right ischial pressure sore, stage 3 Type 1 diabetes mellitus on insulin therapy Anemia in chronic kidney disease Echocardiogram: Diastolic dysfunction, normal LV EF: 73%, LV hypertrophy. CXR today with slight improvement of R opacity - CT on 08/09- pulm edema, small pleural effusion, LLL pneumonia nausea possibly due to constipation -significant stool burden on CT, possible medication induced vs hypotension; tried suppository with no effect, will try enema today. continue colace BID CRP elevated. Pro calcitonin elevated. ID consulted, recommend continuing meropenem and vancomycin, can continue vanc with dialysis, however not meropenem, will discuss with ID, if can de-escalate, or possibly PO option CT pelvis, still with signs of sacral osteomyelitis Dr. Almodovar consulted for sacral ulcer Blood culture with no growth so far Hemodialysis per nephrology. Pressure ulcer precautions- Frequent turning. Local wound care. Continue other home medications. Imdur on hold due to hypotension during dialysis. Dispo: anticipate hospitalization 1-2 more days advanced care planning was addressed with patient and today - prefer to be discharged home with home health if possible, full code; Time spent: 30minutes Time Spent Managing Pts Care (In Minutes): 45
--- NOTE | 2020-08-11 13:41 | P.PN ---
Subjective Date of Service: 08/11/20 Chief Complaint: Shortness of breath Patient seen examined at bedside, no acute complaints. Wound VAC to be placed today or tomorrow over sacral wound. Review of Systems 10-point ROS is otherwise unremarkable Physical Examination - Vital Signs Temperature: 97.6 F Blood Pressure: 106/51 Pulse: 69 Respirations: 18 Pulse Ox (%): 99 - Physical Exam Other Physical/Emotional Findings: General: Moderate distress, Confused, Other. HEENT: Atraumatic, Normocephalic. Neck: Supple, 2+ carotid pulse no bruit. Respiratory: Clear to auscultation bilaterally, Crackles/rales. Cardiovascular: Regular rate/rhythm, Normal S1 S2. Capillary refill: <2 Seconds. Gastrointestinal: Normal bowel sounds, Soft and benign. Musculoskeletal: Other (Bilateral lower extremities wrapped with Wayne wraps). Integumentary: right buttock stage 3 pressure wound:5x3cm, majority slough tissue present, periwound tissue shows purple/red discoloration. Sacral pressure wound stage 4: 2.5x1x1 cm. tunnling at 1 oclock position measuring 3.2 cm. Base of wound shows granulation tissue-minimal drainage. sacrococcyx stage 1: redness noted around area, surrounding stage 4 sacral wound. . Lymphatics: No axilla or inguinal lymphadenopathy - Studies Laboratory Last Values WBC 6.20 K/uL (4.3-10.9) 08/07/20 04:17 RBC 3.04 M/uL (3.86-4.86) L 08/07/20 04:17 Hgb 9.5 g/dL (12.0-15.0) L 08/07/20 04:17 Hct 30.4 % (36.0-45.0) L 08/07/20 04:17 MCV 100.3 fL (80-100) H 08/07/20 04:17 MCH 31.2 pg (27.0-35.0) 08/07/20 04:17 MCHC 31.1 g/dL (32.0-36.0) L 08/07/20 04:17 RDW 18.9 % (12.1-15.2) H 08/07/20 04:17 Plt Count 233 K/uL (152-406) 08/07/20 04:17 MPV 8.0 fL (7.6-11.3) 08/07/20 04:17 Neutrophils % 77.6 % (41.7-73.7) H 08/07/20 04:17 Lymphocytes % 10.4 % (15.3-44.8) L 08/07/20 04:17 Monocytes % 8.9 % (3.3-12.3) 08/07/20 04:17 Eosinophils % 1.9 % (0-4.4) 08/07/20 04:17 Basophils % 1.2 % (0-1.3) 08/07/20 04:17 Absolute Neutrophils 4.8 K/uL (1.8-8.0) 08/07/20 04:17 Absolute Lymphocytes 0.6 K/uL (0.7-4.9) L 08/07/20 04:17 Absolute Monocytes 0.5 K/uL (0.1-1.3) 08/07/20 04:17 Absolute Eosinophils 0.1 K/uL (0-0.5) 08/07/20 04:17 Absolute Basophils 0.1 K/uL (0-0.5) 08/07/20 04:17 PT 15.3 SECONDS (9.5-12.5) H 08/05/20 23:57 INR 1.33 08/05/20 23:57 Sodium 140 mmol/L (136-145) 08/07/20 04:17 Potassium 4.1 mmol/L (3.5-5.1) 08/07/20 04:17 Chloride 106 mmol/L (98-107) 08/07/20 04:17 Carbon Dioxide 25 mmol/L (21-32) 08/07/20 04:17 BUN 31 mg/dL (7-18) H 08/07/20 04:17 Creatinine 3.20 mg/dL (0.55-1.3) H 08/07/20 04:17 Estimated GFR 14 mL/min (=/>90) L 08/07/20 04:17 Glucose 230 mg/dL (74-106) H 08/07/20 04:17 POC Glucose 286 mg/dL (65-120) H 08/07/20 11:08 Calcium 9.0 mg/dL (8.5-10.1) 08/07/20 04:17 Magnesium 2.1 mg/dL (1.8-2.4) 08/05/20 23:57 Total Bilirubin 0.7 mg/dL (0.2-1.0) 08/07/20 04:17 Direct Bilirubin 0.2 mg/dL (0-0.2) 08/05/20 23:57 AST 15 U/L (15-37) 08/07/20 04:17 ALT < 6 U/L (12-78) L 08/07/20 04:17 Alkaline Phosphatase 177 U/L (45-117) H 08/07/20 04:17 Rapid Troponin I 0.02 ng/mL (0.0-0.045) 08/05/20 23:57 Troponin I < 0.02 ng/mL (0.0-0.045) 08/06/20 08:50 NT-Pro-B Natriuret Pep 83922 pg/mL (<125) H 08/05/20 23:57 Serum Total Protein 6.0 g/dL (6.4-8.2) L 08/07/20 04:17 Albumin 1.9 g/dL (3.4-5.0) L 08/07/20 04:17 Globulin 4.1 g/dL (2.3-3.5) H 08/07/20 04:17 Albumin/Globulin Ratio 0.5 (1.1-1.8) L 08/07/20 04:17 SARS-CoV-2 RNA (RT-PCR) Negative (NEGATIVE) 08/06/20 03:48 Assessment And Plan - Plan Assessment: -pneumonia -stage IV sacral ulcer w osteomyelitis -stage III right buttocks ulcer -DTI to sacrococcyx area -ESRD on HD -diabetes type 2 -anemia plan: -pneumonia: Repeat chest x-ray performed on 08/10 showed a improving right sided pulmonary opacities with no change in left side. Continue clindamycin PO until 08/22. -stage IV sacral ulcer w osteomyelitis: CT pelvis confirmed osteomyelitis- continue vancomycin for 6 weeks from start stage. Start: 08/07 Stop: 09/18. wound VAC ordered. -stage III right buttocks ulcer: apply santyl and cover with foam qMWF -sacrococcyx stage 1: apply barrier cream to area and continue to offload -offload all pressure wounds and avoid direct pressure-air mattress in place -medical management per primary team -continue monitor CBC and BMP-no leukocytosis at this time -continue to monitor percent infection Plan of care discussed with Dr. Celis. Thank you for consultation. Physician Review: Patient Assessed, Agree with Above Assessment and Plan
[2020-08-11] MEDS ORDERED: GLUCAGON 1 MG/VIAL IM PRN (15:20)
--- NOTE | 2020-08-11 16:04 | CON ---
Date of Consultation: 08/11/2020 Reason For Consultation: Sacral decubitus and infected wound with osteomyelitis. History Of Present Illness: The patient is a 65-year-old female, who I have seen in the recent past in the wound healing center for nonhealing wound on the sacrum and the lower extremity. The patient had a CAT scan done of the sacrum, which revealed osteomyelitis and I was asked to evaluate the sacra l wound to see if a wound VAC would be indicated. The patient did have a CT done on the 09 of August , which showed osteomyelitis in the posterior elements, midline lower sacrum and within the coccygeal body, soft tissue thickening and edema and posterior to the coccyx and lower sacrum. No sore throat , runny nose, cough, headaches, or dizziness. No chest pain. Review of Systems: Otherwise unremarkable. Past Medical History: Significant for diabetes, hypertension, end-stage renal disease, hypothyroidis m, type 1 diabetes. Past Surgical History: Kidney transplant, cataract surgery, breast augmentation. Allergies: PENICILLIN. Social History: The patient currently does not smoke or drink. Family History: Heart disease. Physical Examination: Vital Signs: Stable. She is afebrile. General: Awake, alert, oriented x3. Head and Neck: No masses. Chest: Clear. Heart: S1, S2. Abdomen: Soft. Extremities: Dressing in place to the lower extremities. The wounds are stable. They are being man aged as per wound care orders. The sacrum reveals approximately a 3.5 x 1.5 cm x 1 cm wound with susan e fibrin in it. No surrounding erythema, warmth, and edema. Assessment: Sacral decubitus stage IV with osteomyelitis. Recommendations: Nutritional optimization and vitamins as ordered on outpatient basis, offloading ai r mattress, and I agree with a wound VAC and collagenase dressing. We will follow the patient in the wound healing center upon discharge, and IV antibiotics per Infectious Disease. /MODL Voice ID: [id number] Report ID: [id number]
[2020-08-11] MEDS ORDERED: INSULIN GLARGINE 100 UNITS/ML SQ SCH (17:00)
--- NOTE | 2020-08-11 18:12 | P.PN ---
Date of Service: 08/11/20 Vital Signs Temp Pulse Resp BP Pulse Ox 97.9 F 71 17 112/54 L 97 08/11/20 16:00 08/11/20 16:00 08/11/20 16:00 08/11/20 16:00 08/11/20 16:00 Medications Acetaminophen/Codeine Phosphate (Codeine 30mg/Apap 300mg Tab) 2 tab PO Q6H PRN PRN Reason: Pain scale 5-7 (Moderate) Last Admin: 08/11/20 01:42 Dose: 2 tab Documented by: Albuterol Sulfate (Albuterol 2.5 Mg/3 Ml Neb Lavern) 2.5 mg NEB [id number] PRN PRN Reason: SHORTNESS OF BREATH Ascorbic Acid (Ascorbic Acid 500 Mg Tablet) 1,000 mg PO DAILY [facility], [facility] Last Admin: 08/11/20 11:00 Dose: 1,000 mg Documented by: Aspirin (Aspirin Ec 81 Mg Tab) 81 mg PO DAILY [facility], [facility] Last Admin: 08/11/20 10:58 Dose: 81 mg Documented by: Atorvastatin Calcium (Atorvastatin 10 Mg Tab) 10 mg PO BEDTIME [facility], [facility] Last Admin: 08/10/20 21:52 Dose: 10 mg Documented by: Calcitriol (Calcitrol 0.25 Mcg Cap) 0.5 mcg PO DAILY [facility], [facility] Last Admin: 08/11/20 09:00 Dose: 0.5 mcg Documented by: Calcium Carbonate/Glycine (Calcium Carbonate Chew 500mg Tab) 1,000 mg PO TID [facility] Last Admin: 08/11/20 10:58 Dose: 1,000 mg Documented by: Cholecalciferol (Vitamin D 5,000 Unit Cap) 5,000 unit PO DAILY [facility] Last Admin: 08/11/20 09:00 Dose: 5,000 unit Documented by: Collagenase (Collagenase 30 Gm Ointment) 1 appl TOP MoWeFr@0900 [facility], [facility] Cyanocobalamin (Cyanocobalamin 1,000 Mcg Tab) 1,000 mcg PO DAILY [facility] Last Admin: 08/11/20 09:00 Dose: 1,000 mcg Documented by: Dextrose (D50w 25 Gm/50 Ml Vial) 12.5 gm IV PRN PRN; Protocol PRN Reason: HYPOGLYCEMIA Docusate Sodium (Docusate Na 100 Mg Cap) 100 mg PO BID [facility] Last Admin: 08/11/20 10:59 Dose: 100 mg Documented by: Enteral Nutritional Formula (Nepro Shake 237 Ml Can) 237 ml PO BID [facility] Last Admin: 08/11/20 09:00 Dose: 237 ml Documented by: Famotidine (Famotidine 20 Mg Tab) 20 mg PO DAILY [facility], [facility]; Protocol Last Admin: 08/11/20 11:00 Dose: 20 mg Documented by: Glucagon (Glucagon 1 Mg/Vial) 1 mg IM 1X PRN; Protocol PRN Reason: HYPOGLYCEMIA Guaifenesin (Guaifenesin 600 Mg Sa Tab) 1,200 mg PO BID [facility] Last Admin: 08/11/20 09:00 Dose: Not Given Documented by: Heparin Sodium (Porcine) (Heparin 5000 Unit/Ml 1 Ml Vial) 5,000 unit SQ Q12HR [facility] Last Admin: 08/11/20 09:00 Dose: 5,000 unit Documented by: Home Med (Biotin [Biotin]) 1 cap PO DAILY [facility] Last Admin: 08/11/20 09:00 Dose: Not Given Documented by: Hydralazine HCl (Hydralazine Hcl 20 Mg/Ml Vial) 10 mg IV Q6HP PRN PRN Reason: Titrate to SBP (MUST DEFINE) Meropenem 500 mg/ Sodium (Chloride) 100 mls @ 100 mls/hr IV Q12HR [facility] Last Admin: 08/11/20 09:00 Dose: 100 mls Documented by: Vancomycin HCl 500 mg/ Sodium (Chloride) 100 mls @ 100 mls/hr IVPB AFTER EACH DIALYSIS [facility], [facility]1983 Insulin Glargine (Insulin Glargine 100 Units/Ml) 10 units SQ DAILY AT SUPPER [facility], [facility] Last Admin: 08/11/20 17:20 Dose: 10 units Documented by: Insulin Human Regular (Insulin -Regular Human 50 Unit/0.5 Ml Ml) 0 unit SQ ACHS [facility], [facility]; Protocol Last Admin: 08/11/20 16:30 Dose: 7 unit Documented by: Lactobacillus Acidoph/Bulgaricus (Lactobacillus/Acidophilus Tab) 1 tab PO BID [facility] Levothyroxine Sodium (Levothyroxine Sod 0.075 Mg Tab) 0.15 mg PO DAILY [facility] Last Admin: 08/11/20 11:00 Dose: 0.15 mg Documented by: Morphine Sulfate (Morphine 2 Mg/Ml Syr) 2 mg IV Q4H PRN PRN Reason: Pain scale 5-7 (Moderate) Last Admin: 08/08/20 11:31 Dose: 2 mg Documented by: Nutritional Formula (Promod 30 Ml Dose) 30 ml PO TIDWM [facility] Last Admin: 08/11/20 17:00 Dose: Not Given Documented by: Ondansetron HCl (Ondansetron 4 Mg/2 Ml Vial) 4 mg IV Q8H PRN PRN Reason: NAUSEA / VOMITING Last Admin: 08/11/20 09:19 Dose: 4 mg Documented by: Pantoprazole Sodium (Pantoprazole 40mg Tablet) 40 mg PO DAILY [facility] Last Admin: 08/11/20 10:59 Dose: 40 mg Documented by: Sodium Chloride (Flush Normal Saline 10 Ml) 10 ml IV BID [facility] Last Admin: 08/11/20 09:00 Dose: 10 ml Documented by: Sodium Hypochlorite (Sodium Hypochlorite 0.25% 473 Ml) 1 appl TOP DAILY [facility] Last Admin: 08/11/20 09:00 Dose: 1 appl Documented by: Vitamin B Complex (Vitamin B Complex 1 Cap) 1 cap PO DAILY [facility] Last Admin: 08/11/20 10:59 Dose: 1 cap Documented by: Vitamin B Complex/Vit C/Folic Acid (Multivitamins,Therapeut 1 Tab) 1 tab PO DAILY [facility] Last Admin: 08/11/20 10:59 Dose: 1 tab Documented by: Zinc Sulfate (Zinc Sulfate 220 Mg Cap) 220 mg PO DAILY [facility] Last Admin: 08/11/20 10:59 Dose: 220 mg Documented by: Assessment/ Plan: Nephrology No acute cardiac or pulmonary complaints. No CP or SOB. +Appetite No acute events overnight. Vitals, medications, blood work and imaging reviewed in the chart. NAD. MMM. Neck supple. CTA. RRR. Soft Abd. No C/C. Hip edema1+. No rash. AAO. Poor hearing. Normal Speech. Sacral ulcer A/P: Continue the current POC and Medications other than the changes listed. AM Labs PRN. Recommend daily weight. Please see the orders for complete details. ESRD -HD MWF -Next HD tomorrow HTN with CKD/ CHF -Hydralazine PRN -Give Midrodrine prior to HD due to dialysis related hypotension A/C Diastolic CHF Anasarca -Low sodium diet -UF with HD DM I with Polyneuropathy/ CKD -No sugar diet -Renal diet Severe malnutriton with hypoalbuminemia -Continue Promod -Give albumin with HD Anemia in CKD -Continue Retacrit TAWNYA/ Secondary HyperPTH -Continue Vitamin D3 Stage 3 Sacral Pressure Ulcer -Air mattress -Tylenol #3 as needed for pain. LLL PNA -Continue Vancomycin and Meropenem Sacral ulcer with osteomyelitis -Wound care as ordered -Continue Vancomycin and Meropenem -Plan for wound vac
[2020-08-11] MEDS: ATORVASTATIN 10 MG TAB PO SCH (21:59)
[2020-08-11] MEDS: LACTOBACILLUS/ACIDOPHILUS TAB PO SCH (21:59)
[2020-08-12 06:22] LABS: Absolute Lymphocytes (CBC) 0.9 K/uL (0.7-4.9); Basophils % 1.3 % (0-1.3); Hematocrit 34.8 % (36.0-45.0); Lymphocytes % 13.9 % (15.3-44.8); MPV 8.2 fL (7.6-11.3); RBC Red Blood Cell Count 3.61 M/uL (3.86-4.86)
[2020-08-12 06:54] LABS: Albumin 2.3 g/dL (3.4-5.0); Magnesium 2.7 mg/dL (1.8-2.4); Phosphorus 3.2 mg/dL (2.5-4.9); Potassium 3.2 mmol/L (3.5-5.1)
[2020-08-12] MEDS: D50W 25 GM/50 ML VIAL IV PRN ×2 (07:19→15:30)
[2020-08-12] MEDS: INSULIN -REGULAR HUMAN 50 UNIT/0.5 ML ML SQ SCH ×4 (07:30→21:00)
[2020-08-12] MEDS ORDERED: MIDODRINE HCL 5 MG TABLET PO ONE (08:00)
[2020-08-12] MEDS: PROMOD 30 ML DOSE PO SCH ×3 (08:00→17:00)
[2020-08-12] MEDS ORDERED: POTASSIUM CL SA 10 MEQ TAB PO ONE (08:10)
[2020-08-12] MEDS: EPOETIN ALFA-EPBX 4,000 UNIT/ML VIAL SQ SCH ×2 (09:00→18:39)
[2020-08-12] MEDS: BIOTIN 5000 MCG PO SCH (09:00)
[2020-08-12] MEDS: NEPRO SHAKE 237 ML CAN PO SCH ×2 (09:00→21:32)
[2020-08-12] MEDS: Meropenem 500 MG in NA CHLORIDE 0.9% 100 ML IV SCH (09:00)
[2020-08-12] MEDS ORDERED: ALBUMIN HUMAN 25% 100 ML IV ONE (09:15)
[2020-08-12] MEDS: HEPARIN 5000 UNIT/ML 1 ML VIAL SQ SCH ×2 (09:15→21:30)
[2020-08-12] MEDS: ONDANSETRON 4 MG/2 ML VIAL IV PRN (09:19)
--- NOTE | 2020-08-12 09:56 | P.PN ---
Subjective Date of Service: 08/12/20 Chief Complaint: Shortness of breath Patient seen examined at bedside, no acute complaints. Had episode of hypoglycemia last night, glucose level now stabilized. Review of Systems 10-point ROS is otherwise unremarkable Physical Examination - Vital Signs Temperature: 96.8 F Blood Pressure: 117/59 Pulse: 75 Respirations: 18 Pulse Ox (%): 98 - Physical Exam Other Physical/Emotional Findings: General: Moderate distress, Confused, Other. HEENT: Atraumatic, Normocephalic. Neck: Supple, 2+ carotid pulse no bruit. Respiratory: Clear to auscultation bilaterally, Crackles/rales. Cardiovascular: Regular rate/rhythm, Normal S1 S2. Capillary refill: <2 Seconds. Gastrointestinal: Normal bowel sounds, Soft and benign. Musculoskeletal: Other (Bilateral lower extremities wrapped with Wayne wraps). Integumentary: right buttock stage 3 pressure wound:5x3cm, majority slough tissue present, periwound tissue shows purple/red discoloration. Sacral pressure wound stage 4: 2.5x1x1 cm. tunnling at 1 oclock position measuring 3.2 cm. Base of wound shows g ranulation tissue-minimal drainage. sacrococcyx stage 1: redness noted around area, surrounding stage 4 sacral wound. . Lymphatics: No axilla or inguinal lymphadenopathy - Studies Laboratory Last Values WBC 6.20 K/uL (4.3-10.9) 08/07/20 04:17 RBC 3.04 M/uL (3.86-4.86) L 08/07/20 04:17 Hgb 9.5 g/dL (12.0-15.0) L 08/07/20 04:17 Hct 30.4 % (36.0-45.0) L 08/07/20 04:17 MCV 100.3 fL (80-100) H 08/07/20 04:17 MCH 31.2 pg (27.0-35.0) 08/07/20 04:17 MCHC 31.1 g/dL (32.0-36.0) L 08/07/20 04:17 RDW 18.9 % (12.1-15.2) H 08/07/20 04:17 Plt Count 233 K/uL (152-406) 08/07/20 04:17 MPV 8.0 fL (7.6-11.3) 08/07/20 04:17 Neutrophils % 77.6 % (41.7-73.7) H 08/07/20 04:17 Lymphocytes % 10.4 % (15.3-44.8) L 08/07/20 04:17 Monocytes % 8.9 % (3.3-12.3) 08/07/20 04:17 Eosinophils % 1.9 % (0-4.4) 08/07/20 04:17 Basophils % 1.2 % (0-1.3) 08/07/20 04:17 Absolute Neutrophils 4.8 K/uL (1.8-8.0) 08/07/20 04:17 Absolute Lymphocytes 0.6 K/uL (0.7-4.9) L 08/07/20 04:17 Absolute Monocytes 0.5 K/uL (0.1-1.3) 08/07/20 04:17 Absolute Eosinophils 0.1 K/uL (0-0.5) 08/07/20 04:17 Absolute Basophils 0.1 K/uL (0-0.5) 08/07/20 04:17 PT 15.3 SECONDS (9.5-12.5) H 08/05/20 23:57 INR 1.33 08/05/20 23:57 Sodium 140 mmol/L (136-145) 08/07/20 04:17 Potassium 4.1 mmol/L (3.5-5.1) 08/07/20 04:17 Chloride 106 mmol/L (98-107) 08/07/20 04:17 Carbon Dioxide 25 mmol/L (21-32) 08/07/20 04:17 BUN 31 mg/dL (7-18) H 08/07/20 04:17 Creatinine 3.20 mg/dL (0.55-1.3) H 08/07/20 04:17 Estimated GFR 14 mL/min (=/>90) L 08/07/20 04:17 Glucose 230 mg/dL (74-106) H 08/07/20 04:17 POC Glucose 286 mg/dL (65-120) H 08/07/20 11:08 Calcium 9.0 mg/dL (8.5-10.1) 08/07/20 04:17 Magnesium 2.1 mg/dL (1.8-2.4) 08/05/20 23:57 Total Bilirubin 0.7 mg/dL (0.2-1.0) 08/07/20 04:17 Direct Bilirubin 0.2 mg/dL (0-0.2) 08/05/20 23:57 AST 15 U/L (15-37) 08/07/20 04:17 ALT < 6 U/L (12-78) L 08/07/20 04:17 Alkaline Phosphatase 177 U/L (45-117) H 08/07/20 04:17 Rapid Troponin I 0.02 ng/mL (0.0-0.045) 08/05/20 23:57 Troponin I < 0.02 ng/mL (0.0-0.045) 08/06/20 08:50 NT-Pro-B Natriuret Pep 94070 pg/mL (<125) H 08/05/20 23:57 Serum Total Protein 6.0 g/dL (6.4-8.2) L 08/07/20 04:17 Albumin 1.9 g/dL (3.4-5.0) L 08/07/20 04:17 Globulin 4.1 g/dL (2.3-3.5) H 08/07/20 04:17 Albumin/Globulin Ratio 0.5 (1.1-1.8) L 08/07/20 04:17 SARS-CoV-2 RNA (RT-PCR) Negative (NEGATIVE) 08/06/20 03:48 Assessment And Plan - Plan Antibiotics: Clindamycin start: 08/12 stop: 08/22 indication: aspiration pneumonia Vancomycin start: 08/07 stop: 09/18 indication: pelvic osteomyelitis Assessment: -pneumonia -stage IV sacral ulcer w osteomyelitis -stage III right buttocks ulcer -DTI to sacrococcyx area -ESRD on HD -diabetes type 2 -anemia plan: -pneumonia: Repeat chest x-ray performed on 08/10 showed a improving right sided pulmonary opacities with no change in left side. Continue clindamycin PO until 08/22. -stage IV sacral ulcer w osteomyelitis: CT pelvis confirmed osteomyelitis- continue vancomycin for 6 weeks from start stage. Start: 08/07 Stop: 09/18. wound VAC ordered. -continue probiotic for duration of antibiotic therapy as patient is on two broad spectrum antibiotics. -stage III right buttocks ulcer: apply santyl and cover with foam qMWF -sacrococcyx stage 1: apply barrier cream to area and continue to offload -offload all pressure wounds and avoid direct pressure-air mattress in place -medical management per primary team -continue monitor CBC and BMP-no leukocytosis at this time -continue to monitor percent infection Plan of care discussed with Dr. Celis. Thank you for consultation. Physician Review: Patient Assessed, Agree with Above Assessment and Plan
[2020-08-12] MEDS: CODEINE 30MG/APAP 300MG TAB PO PRN ×2 (11:02→13:54)
--- NOTE | 2020-08-12 11:41 | P.PN ---
Subjective Date of Service: 08/12/20 Chief Complaint: Shortness of breath Subjective: Improving (feels better this morning, on 2L NC, pain ok, no nausea currently. Had BM yesterday and feels better. To go for dialysis today) Review of Systems 10-point ROS is otherwise unremarkable Physical Examination - Vital Signs Temperature: 96.8 F Blood Pressure: 117/59 Pulse: 75 Respirations: 18 Pulse Ox (%): 98 Assessment & Plan Physician Review Additional Text: Physical Exam General: AAOx2, NAD HEENT: Mucous membr. moist/pink Pulm: Diminished at bases, shallow inspiration Cardiovascular: Regular rate/rhythm, trace b/l lower extremity edema up to thighs, wrapped with JUMA bandages bilaterally Gastrointestinal: soft, nontender / nondistended Integumentary: sacral ulcer with wound vac in place Problem List Acute hypoxia secondary to volume overload and left lower lobe pneumonia ESRD with Volume overload ESRD (end stage renal disease) on dialysis Pressure ulcer of sacral region, stage 4 Right ischial pressure sore, stage 3 Type 1 diabetes mellitus on insulin pump at home Anemia in chronic kidney disease Echocardiogram: Diastolic dysfunction, normal LV EF: 73%, LV hypertrophy. CXR 3. with slight improvement of R opacity - CT (08/09)- pulm edema, small pleural effusion, LLL pneumonia nausea possibly due to constipation -significant stool burden on CT, improved this AM, had BM after enema yesterday CRP elevated. Pro calcitonin elevated. ID consulted, recommend meropenem change to clinda PO for ~1more week and wiil need an additional 6 weeks of vancomycin for osteomyelitis (to continue with dialysis CT pelvis, still with signs of sacral osteomyelitis Dr. Almodovar consulted for sacral ulcer - agrees with Wound vac placement - social studies department chair consulted for home wound vac machine Blood culture with no growth so far Hemodialysis per nephrology. Pressure ulcer precautions- Frequent turning. Local wound care. Continue other home medications. Imdur on hold due to hypotension during dialysis. Dispo: anticipate discharge in next ~24hrs pending stability, continued improvement after dialysis Time Spent Managing Pts Care (In Minutes): 35
[2020-08-12] MEDS: ASPIRIN EC 81 MG TAB PO SCH (13:53)
[2020-08-12] MEDS: VITAMIN D 5,000 UNIT CAP PO SCH (13:53)
[2020-08-12] MEDS: ZINC SULFATE 220 MG CAP PO SCH (13:53)
[2020-08-12] MEDS: LEVOTHYROXINE SOD 0.075 MG TAB PO SCH (13:54)
[2020-08-12] MEDS: DOCUSATE NA 100 MG CAP PO SCH ×2 (13:55→21:29)
[2020-08-12] MEDS: GUAIFENESIN 600 MG SA TAB PO SCH ×2 (13:55→21:29)
[2020-08-12] MEDS: VITAMIN B COMPLEX 1 CAP PO SCH (13:55)
[2020-08-12] MEDS: CALCIUM CARBONATE CHEW 500MG TAB PO SCH ×3 (13:55→21:29)
[2020-08-12] MEDS: LACTOBACILLUS/ACIDOPHILUS TAB PO SCH ×2 (13:55→21:29)
[2020-08-12] MEDS: MULTIVITAMINS,THERAPEUT 1 TAB PO SCH (13:56)
[2020-08-12] MEDS: PANTOPRAZOLE 40MG TABLET PO SCH (13:56)
[2020-08-12] MEDS: FAMOTIDINE 20 MG TAB PO SCH (13:56)
[2020-08-12] MEDS: ASCORBIC ACID 500 MG TABLET PO SCH (13:56)
[2020-08-12] MEDS: CALCITROL 0.25 MCG CAP PO SCH (13:57)
[2020-08-12] MEDS: CYANOCOBALAMIN 1,000 MCG TAB PO SCH (13:57)
[2020-08-12] MEDS: SODIUM HYPOCHLORITE 0.25% 473 ML TOP SCH (13:59)
[2020-08-12] MEDS ORDERED: CLINDAMYCIN PALMITATE 75 MG/5 ML PO SCH (14:00)
[2020-08-12] MEDS: COLLAGENASE 30 GM OINTMENT TOP SCH (14:00)
[2020-08-12] MEDS ORDERED: DEXTROSE 10%-WATER 500 ML IV SCH (16:15)
[2020-08-12] MEDS ORDERED: POLYETHYL GLY 3350 17 GM/DOSE PO ONE (20:51)
[2020-08-12] MEDS: ATORVASTATIN 10 MG TAB PO SCH (21:30)
[2020-08-12] MEDS: MINERAL OIL ENEMA 135 ML BTL PR SCH (21:59)
--- NOTE | 2020-08-12 22:07 | P.PN ---
Date of Service: 08/12/20 Vital Signs Temp Pulse Resp BP Pulse Ox 96.6 F L 61 18 169/74 H 96 08/12/20 20:00 08/12/20 20:00 08/12/20 20:00 08/12/20 20:00 08/12/20 20:00 Medications Acetaminophen/Codeine Phosphate (Codeine 30mg/Apap 300mg Tab) 2 tab PO Q6H PRN PRN Reason: Pain scale 5-7 (Moderate) Last Admin: 08/12/20 13:54 Dose: 2 tab Documented by: Albuterol Sulfate (Albuterol 2.5 Mg/3 Ml Neb Lavern) 2.5 mg NEB [id number] PRN PRN Reason: SHORTNESS OF BREATH Ascorbic Acid (Ascorbic Acid 500 Mg Tablet) 1,000 mg PO DAILY [facility] Last Admin: 08/12/20 13:56 Dose: 1,000 mg Documented by: Aspirin (Aspirin Ec 81 Mg Tab) 81 mg PO DAILY [facility] Last Admin: 08/12/20 13:53 Dose: 81 mg Documented by: Atorvastatin Calcium (Atorvastatin 10 Mg Tab) 10 mg PO BEDTIME [facility] Last Admin: 08/12/20 21:30 Dose: 10 mg Documented by: Calcitriol (Calcitrol 0.25 Mcg Cap) 0.5 mcg PO DAILY [facility] Last Admin: 08/12/20 13:57 Dose: 0.5 mcg Documented by: Calcium Carbonate/Glycine (Calcium Carbonate Chew 500mg Tab) 1,000 mg PO TID [facility] Last Admin: 08/12/20 21:29 Dose: 1,000 mg Documented by: Cholecalciferol (Vitamin D 5,000 Unit Cap) 5,000 unit PO DAILY [facility] Last Admin: 08/12/20 13:53 Dose: 5,000 unit Documented by: Clindamycin HCl (Clindamycin Hcl 150 Mg Cap) 300 mg PO TID [facility]; Protocol Stop: 08/22/20 23:59 Last Admin: 08/12/20 21:29 Dose: 300 mg Documented by: Collagenase (Collagenase 30 Gm Ointment) 1 appl TOP MoWeFr@0900 [facility] Last Admin: 08/12/20 14:00 Dose: 1 joby Documented by: Cyanocobalamin (Cyanocobalamin 1,000 Mcg Tab) 1,000 mcg PO DAILY [facility] Last Admin: 08/12/20 13:57 Dose: 1,000 mcg Documented by: Dextrose (D50w 25 Gm/50 Ml Vial) 12.5 gm IV PRN PRN; Protocol PRN Reason: HYPOGLYCEMIA Last Admin: 08/12/20 15:30 Dose: 25 gm Documented by: Docusate Sodium (Docusate Na 100 Mg Cap) 100 mg PO BID [facility] Last Admin: 08/12/20 21:29 Dose: 100 mg Documented by: Enteral Nutritional Formula (Nepro Shake 237 Ml Can) 237 ml PO BID [facility] Last Admin: 08/12/20 21:32 Dose: 237 ml Documented by: Famotidine (Famotidine 20 Mg Tab) 20 mg PO DAILY [facility]; Protocol Last Admin: 08/12/20 13:56 Dose: 20 mg Documented by: Glucagon (Glucagon 1 Mg/Vial) 1 mg IM 1X PRN; Protocol PRN Reason: HYPOGLYCEMIA Guaifenesin (Guaifenesin 600 Mg Sa Tab) 1,200 mg PO BID [facility] Last Admin: 08/12/20 21:29 Dose: 1,200 mg Documented by: Heparin Sodium (Porcine) (Heparin 5000 Unit/Ml 1 Ml Vial) 5,000 unit SQ Q12HR [facility] Last Admin: 08/12/20 21:30 Dose: 5,000 unit Documented by: Heparin Sodium (Porcine) (Heparin 1,000 Unit/Ml Vial) 2,000 unit IV EVERY HD PRN PRN Reason: dialysis Last Admin: 08/12/20 09:50 Dose: 2,000 unit Documented by: Home Med (Biotin [Biotin]) 1 cap PO DAILY [facility] Last Admin: 08/12/20 09:00 Dose: 1 cap Documented by: Hydralazine HCl (Hydralazine Hcl 20 Mg/Ml Vial) 10 mg IV Q6HP PRN PRN Reason: Titrate to SBP (MUST DEFINE) Vancomycin HCl 500 mg/ Sodium (Chloride) 100 mls @ 100 mls/hr IVPB AFTER EACH DIALYSIS [facility] Dextrose (D10w 500 Ml Ivpb) 500 mls @ 50 mls/hr IV .Q10H [facility] Stop: 08/13/20 02:14 Last Admin: 08/12/20 16:15 Dose: 500 mls Documented by: Insulin Human Regular (Insulin -Regular Human 50 Unit/0.5 Ml Ml) 0 unit SQ ACHS [facility]; Protocol Last Admin: 08/12/20 16:30 Dose: Not Given Documented by: Lactobacillus Acidoph/Bulgaricus (Lactobacillus/Acidophilus Tab) 1 tab PO BID [facility] Last Admin: 08/12/20 21:29 Dose: 1 tab Documented by: Levothyroxine Sodium (Levothyroxine Sod 0.075 Mg Tab) 0.15 mg PO DAILY [facility] Last Admin: 08/12/20 13:54 Dose: 0.15 mg Documented by: Mineral Oil (Mineral Oil Enema 135 Ml Btl) 135 ml MN 1X [facility] Last Admin: 08/12/20 21:59 Dose: 135 ml Documented by: Nutritional Formula (Promod 30 Ml Dose) 30 ml PO TIDWM [facility] Last Admin: 08/12/20 17:00 Dose: Not Given Documented by: Ondansetron HCl (Ondansetron 4 Mg/2 Ml Vial) 4 mg IV Q8H PRN PRN Reason: NAUSEA / VOMITING Last Admin: 08/12/20 09:19 Dose: 4 mg Documented by: Pantoprazole Sodium (Pantoprazole 40mg Tablet) 40 mg PO DAILY [facility] Last Admin: 08/12/20 13:56 Dose: 40 mg Documented by: Sodium Chloride (Flush Normal Saline 10 Ml) 10 ml IV BID [facility] Last Admin: 08/12/20 21:31 Dose: 10 ml Documented by: Sodium Hypochlorite (Sodium Hypochlorite 0.25% 473 Ml) 1 appl TOP DAILY [facility] Last Admin: 08/12/20 13:59 Dose: 1 appl Documented by: Vitamin B Complex (Vitamin B Complex 1 Cap) 1 cap PO DAILY [facility] Last Admin: 08/12/20 13:55 Dose: 1 cap Documented by: Vitamin B Complex/Vit C/Folic Acid (Multivitamins,Therapeut 1 Tab) 1 tab PO DAILY [facility] Last Admin: 08/12/20 13:56 Dose: 1 tab Documented by: Zinc Sulfate (Zinc Sulfate 220 Mg Cap) 220 mg PO DAILY [facility] Last Admin: 08/12/20 13:53 Dose: 220 mg Documented by: Assessment/ Plan: Nephrology No acute cardiac or pulmonary complaints. No CP or SOB. +Appetite No acute events overnight. Vitals, medications, blood work and imaging reviewed in the chart. NAD. MMM. Neck supple. CTA. RRR. Soft Abd. No C/C. Hip edema1+. No rash. AAO. Poor hearing. Normal Speech. Sacral ulcer A/P: Continue the current POC and Medications other than the changes listed. AM Labs PRN. Recommend daily weight. Please see the orders for complete details. ESRD -HD MWF -Next HD today Hypokalemia -Replete potassium HTN with CKD/ CHF -Hydralazine PRN A/C Diastolic CHF Anasarca -Low sodium diet -UF with HD DM I with Polyneuropathy/ CKD -No sugar diet -Renal diet Severe malnutriton with hypoalbuminemia -Continue Promod -Give Albumin with HD Anemia in CKD -Continue Retacrit TAWNYA/ Secondary HyperPTH -Continue Vitamin D3 Stage 3 Sacral Pressure Ulcer -Air mattress -Tylenol #3 as needed for pain. LLL PNA -Continue Vancomycin and Meropenem Sacral ulcer with osteomyelitis -Wound care as ordered -Continue Vancomycin and Meropenem -Plan for wound vac
[2020-08-13] MEDS: ONDANSETRON 4 MG/2 ML VIAL IV PRN ×2 (01:58→23:01)
[2020-08-13] MEDS: INSULIN -REGULAR HUMAN 50 UNIT/0.5 ML ML SQ SCH ×4 (07:30→21:00)
[2020-08-13] MEDS: PROMOD 30 ML DOSE PO SCH ×3 (07:59→17:00)
[2020-08-13] MEDS: FAMOTIDINE 20 MG TAB PO SCH (09:00)
[2020-08-13] MEDS: LEVOTHYROXINE SOD 0.075 MG TAB PO SCH (09:00)
[2020-08-13] MEDS: GUAIFENESIN 600 MG SA TAB PO SCH ×2 (09:00→22:08)
[2020-08-13] MEDS: ZINC SULFATE 220 MG CAP PO SCH (09:00)
[2020-08-13] MEDS: NEPRO SHAKE 237 ML CAN PO SCH ×2 (09:00→22:20)
[2020-08-13] MEDS: VITAMIN B COMPLEX 1 CAP PO SCH (09:00)
[2020-08-13] MEDS: ASCORBIC ACID 500 MG TABLET PO SCH (09:00)
[2020-08-13] MEDS: VITAMIN D 5,000 UNIT CAP PO SCH (09:00)
[2020-08-13] MEDS: CYANOCOBALAMIN 1,000 MCG TAB PO SCH (09:00)
[2020-08-13] MEDS: CALCIUM CARBONATE CHEW 500MG TAB PO SCH ×3 (09:00→22:08)
[2020-08-13] MEDS: BIOTIN 5000 MCG PO SCH (09:00)
[2020-08-13] MEDS: CALCITROL 0.25 MCG CAP PO SCH (09:00)
[2020-08-13] MEDS: SODIUM HYPOCHLORITE 0.25% 473 ML TOP SCH (09:00)
[2020-08-13] MEDS: LACTOBACILLUS/ACIDOPHILUS TAB PO SCH ×2 (09:00→22:08)
[2020-08-13] MEDS: MULTIVITAMINS,THERAPEUT 1 TAB PO SCH (09:00)
[2020-08-13 09:08] LABS: Absolute Lymphocytes (CBC) 0.8 K/uL (0.7-4.9); Basophils % 1.1 % (0-1.3); Hematocrit 29.6 % (36.0-45.0); Lymphocytes % 12.5 % (15.3-44.8); MPV 8.6 fL (7.6-11.3); RBC Red Blood Cell Count 2.99 M/uL (3.86-4.86)
[2020-08-13 09:22] LABS: C-Reactive Protein 70.8 mg/L (<3.00); Magnesium 2.2 mg/dL (1.8-2.4); Potassium 3.9 mmol/L (3.5-5.1)
[2020-08-13] MEDS: ASPIRIN EC 81 MG TAB PO SCH (09:37)
[2020-08-13] MEDS: DOCUSATE NA 100 MG CAP PO SCH ×2 (09:38→22:10)
[2020-08-13] MEDS: PANTOPRAZOLE 40MG TABLET PO SCH (09:38)
[2020-08-13] MEDS: HEPARIN 5000 UNIT/ML 1 ML VIAL SQ SCH ×2 (09:38→22:09)
--- NOTE | 2020-08-13 11:13 | P.PN ---
Subjective Date of Service: 08/13/20 Chief Complaint: Shortness of breath Subjective: Other (breathing comfortably, feels abd slightly distended with gas, +nausea, no vomiting, small BM last night, still feels constipated. nursing report decreased PO intake, not wanting to take medications) Review of Systems 10-point ROS is otherwise unremarkable Physical Examination - Vital Signs Temperature: 96.4 F Blood Pressure: 131/65 Pulse: 76 Respirations: 18 Pulse Ox (%): 100 - Physical Exam Other Physical/Emotional Findings: . Assessment & Plan Physician Review Additional Text: Physical Exam General: AAOx2, NAD, nauseous HEENT: Mucous membr. moist/pink Pulm: Diminished at bases, shallow inspiration Cardiovascular: Regular rate/rhythm, trace b/l lower extremity edema up to thighs, wrapped with JUMA bandages bilaterally Gastrointestinal: soft, nontender / nondistended Integumentary: sacral ulcer with wound vac in place Problem List Acute hypoxia secondary to volume overload and left lower lobe pneumonia ESRD with Volume overload ESRD (end stage renal disease) on dialysis Pressure ulcer of sacral region, stage 4 Right ischial pressure sore, stage 3 Type 1 diabetes mellitus on insulin pump at home Anemia in chronic kidney disease Echocardiogram: Diastolic dysfunction, normal LV EF: 73%, LV hypertrophy. CXR 3/. with slight improvement of R opacity - CT (08/09)- pulm edema, small pleural effusion, LLL pneumonia nausea possibly due to constipation -significant stool burden on CT, didn't respond enough to suppository / fleet enema- will try again, may need manual disimpaction CRP elevated - improving. Pro calcitonin elevated. CT pelvis, still with signs of sacral osteomyelitis ID consulted, recommend meropenem changed to clinda PO for ~1more week and wiil need 6 weeks of vancomycin for osteomyelitis (to continue with dialysis) Dr. Almodovar consulted for sacral ulcer - agrees with Wound vac placement - manager social services consulted for home wound vac machine Blood culture with no growth so far Hemodialysis per nephrology. difficult to pull volume due to low blood pressure Pressure ulcer precautions- Frequent turning. Local wound care. Continue other home medications. Imdur on hold due to hypotension during dialysis. Dispo: anticipate discharge in ~48-72hrs Time Spent Managing Pts Care (In Minutes): 40
--- NOTE | 2020-08-13 11:34 | P.PN ---
Subjective Date of Service: 08/13/20 Chief Complaint: Shortness of breath patient seen/examined. had dialysis yesterday. breathing seems to be good. vs stable lungs cta [facility] regular abd soft/distended ext has clean wraps on. skin dry a/p: esrd had hd yesterday. volume status seems to be ok. bp stable. constipation. reviewed with hospitalist, Dr. Wallace. trying enema after assessing any need for disimpaction. planning set up for wound vac. frail condition/gen debil with sacral wound. Physical Examination - Vital Signs Temperature: 96.4 F Blood Pressure: 131/65 Pulse: 76 Respirations: 18 Pulse Ox (%): 100 - Physical Exam Other Physical/Emotional Findings: General: Moderate distress, Confused, Other. HEENT: Atraumatic, Normocephalic. Neck: Supple, 2+ carotid pulse no bruit. Respiratory: Clear to auscultation bilaterally, Crackles/rales. Cardiovascular: Regular rate/rhythm, Normal S1 S2. Capillary refill: <2 Seconds. Gastrointestinal: Normal bowel sounds, Soft and benign. Musculoskeletal: Other (Bilateral lower extremities wrapped with Wayne wraps). Integumentary: right buttock stage 3 pressure wound:5x3cm, majority slough tissue present, periwound tissue shows purple/red discoloration. Sacral pressure wound stage 4: 2.5x1x1 cm. tunnling at 1 oclock position measuring 3.2 cm. Base of wound shows granulation tissue-minimal drainage. sacrococcyx stage 1: redness noted around area, surrounding stage 4 sacral wound. . Lymphatics: No axilla or inguinal lymphadenopathy Assessment And Plan Physician Review: Patient Assessed, Agree with Above Assessment and Plan Physician Review Additional Text: Physical Exam General: AAOx2, NAD HEENT: Mucous membr. moist/pink Pulm: Diminished at bases, shallow inspiration Cardiovascular: Regular rate/rhythm, trace b/l lower extremity edema up to thighs, wrapped with WAYNE bandages bilaterally Gastrointestinal: soft, nontender / nondistended Integumentary: sacral ulcer with wound vac in place Problem List Acute hypoxia secondary to volume overload and left lower lobe pneumonia ESRD with Volume overload ESRD (end stage renal disease) on dialysis Pressure ulcer of sacral region, stage 4 Right ischial pressure sore, stage 3 Type 1 diabetes mellitus on insulin pump at home Anemia in chronic kidney disease Echocardiogram: Diastolic dysfunction, normal LV EF: 73%, LV hypertrophy. CXR 08/10. with slight improvement of R opacity - CT (08/09)- pulm edema, small pleural effusion, LLL pneumonia nausea possibly due to constipation -significant stool burden on CT, improved this AM, had BM after enema yesterday CRP elevated. Pro calcitonin elevated. ID consulted, recommend meropenem change to clinda PO for ~1more week and wiil need an additional 6 weeks of vancomycin for osteomyelitis (to continue with dialysis CT pelvis, still with signs of sacral osteomyelitis Dr. Almodovar consulted for sacral ulcer - agrees with Wound vac placement - social service manager consulted for home wound vac machine Blood culture with no growth so far Hemodialysis per nephrology. Pressure ulcer precautions- Frequent turning. Local wound care. Continue other home medications. Imdur on hold due to hypotension during dialysis. Dispo: anticipate discharge in next ~24hrs pending stability, continued improvement after dialysis
[2020-08-13] MEDS: CODEINE 30MG/APAP 300MG TAB PO PRN (15:37)
[2020-08-13] MEDS: MINERAL OIL ENEMA 135 ML BTL PR SCH (21:00)
[2020-08-13] MEDS: ATORVASTATIN 10 MG TAB PO SCH (22:08)
[2020-08-13] MEDS: D50W 25 GM/50 ML VIAL IV PRN (23:01)
[2020-08-14] MEDS: CODEINE 30MG/APAP 300MG TAB PO PRN ×2 (00:22→11:41)
[2020-08-14] MEDS: INSULIN -REGULAR HUMAN 50 UNIT/0.5 ML ML SQ SCH ×3 (07:30→16:30)
[2020-08-14] MEDS: PROMOD 30 ML DOSE PO SCH ×3 (08:00→17:00)
[2020-08-14] MEDS: ASCORBIC ACID 500 MG TABLET PO SCH (09:00)
[2020-08-14] MEDS: BIOTIN 5000 MCG PO SCH (09:00)
[2020-08-14] MEDS: CALCITROL 0.25 MCG CAP PO SCH (09:00)
[2020-08-14] MEDS: MULTIVITAMINS,THERAPEUT 1 TAB PO SCH (09:00)
[2020-08-14] MEDS: NEPRO SHAKE 237 ML CAN PO SCH ×2 (09:00→20:30)
[2020-08-14] MEDS: GUAIFENESIN 600 MG SA TAB PO SCH ×2 (09:00→21:00)
[2020-08-14] MEDS: PANTOPRAZOLE 40MG TABLET PO SCH (09:00)
[2020-08-14] MEDS: FAMOTIDINE 20 MG TAB PO SCH (09:00)
[2020-08-14] MEDS: CALCIUM CARBONATE CHEW 500MG TAB PO SCH ×3 (09:00→21:00)
[2020-08-14] MEDS: ZINC SULFATE 220 MG CAP PO SCH (09:00)
[2020-08-14] MEDS: VITAMIN B COMPLEX 1 CAP PO SCH (09:00)
[2020-08-14] MEDS: LEVOTHYROXINE SOD 0.075 MG TAB PO SCH (09:00)
[2020-08-14] MEDS: VITAMIN D 5,000 UNIT CAP PO SCH (09:00)
[2020-08-14] MEDS: LACTOBACILLUS/ACIDOPHILUS TAB PO SCH ×2 (09:00→21:00)
[2020-08-14] MEDS: CYANOCOBALAMIN 1,000 MCG TAB PO SCH (09:00)
--- NOTE | 2020-08-14 10:04 | P.PN ---
Subjective Date of Service: 08/14/20 Chief Complaint: Shortness of breath Subjective: Improving (feels better - less nausea, breathing comfortably, continues with buttock pain RN was able to disempact some hard stool, but patient was not tolerating well and refused enema. She is ok with trying enema again today) Review of Systems 10-point ROS is otherwise unremarkable Physical Examination - Vital Signs Temperature: 96.8 F Blood Pressure: 148/63 Pulse: 71 Respirations: 18 Pulse Ox (%): 100 - Physical Exam Other Physical/Emotional Findings: . Assessment & Plan Physician Review Additional Text: Physical Exam General: AAOx2, NAD, nauseous HEENT: Mucous membr. moist/pink Pulm: Diminished at bases, shallow inspiration, on 2 L NC Cardiovascular: Regular rate/rhythm, trace b/l lower extremity edema noted in thighs, lower legs wrapped with JUMA bandages bilaterally Gastrointestinal: soft, nontender / nondistended Integumentary: sacral ulcer with wound vac in place Problem List Acute hypoxia secondary to volume overload and left lower lobe pneumonia ESRD with Volume overload ESRD (end stage renal disease) on dialysis Pressure ulcer of sacral region, stage 4 Right ischial pressure sore, stage 3 Type 1 diabetes mellitus on insulin pump at home Anemia in chronic kidney disease Echocardiogram: Diastolic dysfunction, normal LV EF: 73%, LV hypertrophy. CXR 3/. with slight improvement of R opacity - CT (08/09)- pulm edema, small pleural effusion, LLL pneumonia nausea likely due to constipation / impaction -significant stool burden on CT, didn't respond enough to suppository / fleet enema- some improvement with partial manual disimpaction CRP elevated - improving. Pro calcitonin elevated. CT pelvis, still with signs of sacral osteomyelitis ID consulted, recommend meropenem changed to clinda PO for ~1more week and wiil need 6 weeks of vancomycin for osteomyelitis (to continue with dialysis) Dr. Almodovar consulted for sacral ulcer - agrees with Wound vac placement - licensed master social worker consulted for home wound vac machine Blood culture with no growth so far Hemodialysis per nephrology. difficult to pull volume due to low blood pressure Pressure ulcer precautions- Frequent turning. Local wound care. Continue other home medications. Imdur on hold due to hypotension during dialysis. Dispo: anticipate discharge in ~48-72hrs Time Spent Managing Pts Care (In Minutes): 35
[2020-08-14] MEDS: HEPARIN 5000 UNIT/ML 1 ML VIAL SQ SCH ×2 (11:51→22:07)
[2020-08-14] MEDS: ASPIRIN EC 81 MG TAB PO SCH (12:10)
[2020-08-14] MEDS: DOCUSATE NA 100 MG CAP PO SCH ×2 (12:14→20:37)
[2020-08-14] MEDS: SODIUM HYPOCHLORITE 0.25% 473 ML TOP SCH (12:15)
--- NOTE | 2020-08-14 13:58 | RAD REPORT ---
EXAM DESCRIPTION: RAD - Abdomen 1 View (KUB) - 08/13/2020 9:14 pm CLINICAL HISTORY: constipated, eval stool burden Pain COMPARISON: No comparisons FINDINGS: The bowel gas pattern is non-obstructive. No evidence of free air or pneumatosis. No suspi cious calcifications. No significant bony findings. Large amount of stool is seen in the colon. IMPRESSION: Significant constipation.
[2020-08-14 16:45] LABS: Albumin 2.1 g/dL (3.4-5.0); Bilirubin Total 1.2 mg/dL (0.2-1.0); Magnesium 3.1 mg/dL (1.8-2.4); Phosphorus 5.4 mg/dL (2.5-4.9)
[2020-08-14 16:51] LABS: Potassium 6.2 mmol/L (3.5-5.1)
[2020-08-14 17:04] LABS: Absolute Lymphocytes (CBC) 4.9 K/uL (0.7-4.9); Basophils % 0.9 % (0-1.3); Hematocrit 35.5 % (36.0-45.0); MPV 9.3 fL (7.6-11.3); RBC Red Blood Cell Count 3.38 M/uL (3.86-4.86)
[2020-08-14 17:06] LABS: C-Reactive Protein 81.7 mg/L (<3.00); Ferritin 13798.8 ng/mL (8-388)
[2020-08-14] MEDS ORDERED: NA CHLORIDE 0.9% 500 ML IV ONE (17:11)
--- NOTE | 2020-08-14 17:16 | RAD REPORT ---
EXAM DESCRIPTION: RAD - Chest Single View - 08/14/2020 4:52 pm CLINICAL HISTORY: ETT adjustment Chest pain. COMPARISON: Chest Single View dated 08/14/2020; Abdomen 1 View (KUB) dated 08/13/2020; Chest Single View dated 08/10/2020; Chest Single View dated 08/09/2020 FINDINGS: Portable technique limits examination quality. ET tube tip is about 1 cm proximal to the malcolm at the level of the inferior margin of the aortic ar ch.
--- NOTE | 2020-08-14 17:16 | RAD REPORT ---
EXAM DESCRIPTION: RAD - Chest Single View - 08/14/2020 4:51 pm CLINICAL HISTORY: ETT Chest pain. COMPARISON: Abdomen 1 View (KUB) dated 08/13/2020; Chest Single View dated 08/10/2020; Chest Single View dated 08/09/2020; Chest Single View dated 08/08/2020bdomen 1 View (KUB) dated 08/13/2020; Chest Single Vi ew dated 08/10/2020; Chest Single View dated 08/09/2020; Chest Single View dated 08/08/2020 FINDINGS: Portable technique limits examination quality. ET tube tip appears to be just entering the right mainstem bronchus.
--- NOTE | 2020-08-14 17:17 | RAD REPORT ---
EXAM DESCRIPTION: RAD - Chest Single View - 08/14/2020 4:52 pm CLINICAL HISTORY: ETT re-adjustment Chest pain. COMPARISON: Chest Single View dated 08/14/2020; Chest Single View dated 08/14/2020; Abdomen 1 View (KUB) dated 08/13/2020; Chest Single View dated 08/10/2020 FINDINGS: Portable technique limits examination quality. ET tube tip is at the level of the aortic arch.
[2020-08-14] MEDS ORDERED: SOD POLYSTYREN SUL 15 GM/60 ML UCUP FT ONE (17:20)
[2020-08-14] MEDS ORDERED: D50W 25 GM/50 ML SYRINGE IV PRN ×2 (17:20→20:32)
[2020-08-14] MEDS ORDERED: GLUCAGON 1 MG/VIAL IM PRN ×2 (17:20→20:32)
[2020-08-14] MEDS ORDERED: INSULIN -REGULAR HUMAN 50 UNIT/0.5 ML ML IV ONE (17:21)
[2020-08-14] MEDS: NA CHLORIDE 0.9% 1,000 ML IV SCH (17:29)
[2020-08-14] MEDS: NOREPINEPHRINE 4 MG in D5W 250 ML IV PRN (17:30)
[2020-08-14] MEDS ORDERED: NOREPINEPHRINE 4 MG/4 ML VIAL ONE (17:40)
[2020-08-14] MEDS ORDERED: D5W 0 ML IV ONE (17:41)
[2020-08-14] MEDS ORDERED: NOREPINEPHRINE 4mg/D5W 250mL 4 MG/250 ML BAG IV ONE (17:41)
[2020-08-14] MEDS ORDERED: INSULIN -REGULAR HUMAN 50 UNIT/0.5 ML ML ONE (17:50)
[2020-08-14] MEDS ORDERED: SOD POLYSTYREN SUL 15 GM/60 ML UCUP ONE (17:51)
--- NOTE | 2020-08-14 18:35 | P.PN ---
Date of Service: 08/14/20 Code blue called 1537 patient was noted to be bradycardic down to 30s on telemetry. Nursing staff ran to room, patient had cardiac arrest. CPR immediately started. Patient received 2 rounds of epi, calcium, bicarb, intubated @1543. ROSC obtained. Central line placed in R femoral. Patient noted to be in afib 120- 130s. Spontaneous resolved back to sinus rhythm within 10 minutes. She received 250ml NS bolus. BP 165/94 initially, upon arrival to the ICU, patient's blood pressure dropped with MAPS: 55-60. HR: 80, FiO2: 40%. BP didn't respond to a second 250ml bolus. Patient was started on levophed. Noted to have hyperkalemia, kayexalate and insulin were given. Review of telemetry shows patient went into afib ~1130am with rates in 100-120. Patient was seen ~15 minutes before code and she was resting comfortably. Patient did not receive any sedation. She remains unresponsive ~3 hrs after code. Discussion with family - , son, sister - all in agreement patient would want to be DNR at this point. Will see if any improvement/responds overnight and will further discuss continuing care tomorrow.
[2020-08-14 19:39] LABS: Anisocytosis 1+; Blood Morphology Comment NOTED (NOT SEEN); Platelet Estimate ADEQ; Poikilocytosis 1+; White Blood Cell Scan OK (OK)
[2020-08-14] MEDS: ATORVASTATIN 10 MG TAB PO SCH (21:00)
[2020-08-14] MEDS ORDERED: HEPARIN 5000 UNIT/ML 1 ML VIAL ONE (21:43)
[2020-08-14 21:46] LABS: Potassium 4.6 mmol/L (3.5-5.1)
[2020-08-14 22:06] LABS: Potassium 4.7 mmol/L (3.5-5.1)
[2020-08-14] MEDS ORDERED: LACTOBACILLUS/ACIDOPHILUS TAB ONE (22:17)
[2020-08-14] MEDS ORDERED: ATORVASTATIN 10 MG TAB ONE (22:17)
[2020-08-15] MEDS: INSULIN -REGULAR HUMAN 50 UNIT/0.5 ML ML SQ SCH ×5 (00:10→23:09)
[2020-08-15] MEDS: NA CHLORIDE 0.9% 1,000 ML IV SCH ×2 (00:15→16:40)
[2020-08-15] MEDS ORDERED: INSULIN -REGULAR HUMAN 50 UNIT/0.5 ML ML ONE ×3 (00:25→23:25)
[2020-08-15] MEDS ORDERED: NA CHLORIDE 0.9% 1,000 ML ONE ×2 (00:32→16:52)
[2020-08-15 05:16] LABS: Albumin 2.2 g/dL (3.4-5.0); Bilirubin Total 1.2 mg/dL (0.2-1.0); Magnesium 2.6 mg/dL (1.8-2.4); Potassium 4.3 mmol/L (3.5-5.1); Protein, Total 5.4 g/dL (6.4-8.2); Troponin I 0.4 ng/mL (0.0-0.045)
[2020-08-15] MEDS: DOCUSATE NA 100 MG CAP PO SCH ×2 (07:14→20:51)
[2020-08-15] MEDS: VITAMIN B COMPLEX 1 CAP PO SCH (07:14)
[2020-08-15] MEDS: BIOTIN 5000 MCG PO SCH (07:14)
[2020-08-15] MEDS: PROMOD 30 ML DOSE PO SCH (07:14)
[2020-08-15] MEDS: PANTOPRAZOLE 40MG TABLET PO SCH (07:15)
[2020-08-15] MEDS: NEPRO SHAKE 237 ML CAN PO SCH ×2 (07:15→20:52)
[2020-08-15] MEDS: MULTIVITAMINS,THERAPEUT 1 TAB PO SCH (07:15)
[2020-08-15] MEDS: GUAIFENESIN 600 MG SA TAB PO SCH ×2 (07:15→20:51)
[2020-08-15] MEDS: LACTOBACILLUS/ACIDOPHILUS TAB PO SCH ×2 (07:15→20:50)
[2020-08-15] MEDS: CALCITROL 0.25 MCG CAP PO SCH (07:16)
[2020-08-15] MEDS: ASCORBIC ACID 500 MG TABLET PO SCH (07:16)
[2020-08-15] MEDS: CALCIUM CARBONATE CHEW 500MG TAB PO SCH ×3 (07:16→20:52)
[2020-08-15] MEDS: VITAMIN D 5,000 UNIT CAP PO SCH (07:17)
[2020-08-15] MEDS: ZINC SULFATE 220 MG CAP PO SCH (07:17)
[2020-08-15] MEDS: CYANOCOBALAMIN 1,000 MCG TAB PO SCH (08:41)
[2020-08-15] MEDS: COLLAGENASE 30 GM OINTMENT TOP SCH (09:00)
[2020-08-15] MEDS: LEVOTHYROXINE SOD 0.075 MG TAB PO SCH (09:00)
[2020-08-15] MEDS: ASPIRIN EC 81 MG TAB PO SCH (09:00)
[2020-08-15] MEDS: SODIUM HYPOCHLORITE 0.25% 473 ML TOP SCH (09:00)
[2020-08-15] MEDS: HEPARIN 5000 UNIT/ML 1 ML VIAL SQ SCH ×2 (09:33→20:51)
[2020-08-15] MEDS: FAMOTIDINE 20 MG TAB PO SCH (09:33)
[2020-08-15] MEDS ORDERED: FAMOTIDINE 20 MG TAB ONE (09:49)
[2020-08-15] MEDS ORDERED: HEPARIN 5000 UNIT/ML 1 ML VIAL ONE ×2 (09:49→20:01)
[2020-08-15] MEDS ORDERED: SODIUM CHL 0.9% 1000 ML BAG IV ONE (11:08)
[2020-08-15] MEDS ORDERED: Caclcium Chloride 10% INJ SYR IV ONE (11:10)
[2020-08-15] MEDS ORDERED: EPINEPHrine 1 MG/10 ML SYR IV ONE (11:11)
--- NOTE | 2020-08-15 12:02 | P.PN ---
Subjective Date of Service: 08/15/20 Chief Complaint: Shortness of breath Patient seen and examined here holding. Assessment and 08/14 the patient coded, she was resuscitated and is now on intubated. Patient has no purposeful movements and only has some time thinking. EEG has been completed for today to assess patient's brain function following code status. Review of Systems 10-point ROS is otherwise unremarkable Physical Examination - Vital Signs Temperature: 98.9 F Blood Pressure: 108/56 Pulse: 76 Respirations: 18 Pulse Ox (%): 100 - Physical Exam Other Physical/Emotional Findings: General: Moderate distress, Confused, Other. HEENT: Atraumatic, Normocephalic. Neck: Supple, 2+ carotid pulse no bruit. Respiratory: Patient is intubated, carse breath sounds bilaterally. Cardiovascular: Regular rate/rhythm, Normal S1 S2. Capillary refill: <2 Seconds. Gastrointestinal: Normal bowel sounds, Soft and benign. Musculoskeletal: Other (Bilateral lower extremities wrapped with Wayne wraps). Integumentary: right buttock stage 3 pressure wound:5x3cm, majority slough tissue present, periwound tissue shows purple/red discoloration. Sacral pressure wound stage 4: 2.5x1x1 cm. tunnling at 1 oclock position measuring 3.2 cm. Base of wound shows granulation tissue-minimal drainage. sacrococcyx stage 1: redness noted around area, surrounding stage 4 sacral wound. . Lymphatics: No axilla or inguinal lymphadenopathy. Assessment And Plan - Plan Antibiotics: Clindamycin start: 08/12 stop: 08/22 indication: aspiration pneumonia Vancomycin start: 08/07 stop: 09/18 indication: pelvic osteomyelitis Assessment: -pneumonia -stage IV sacral ulcer w osteomyelitis -stage III right buttocks ulcer -DTI to sacrococcyx area -ESRD on HD -diabetes type 2 -anemia plan: -pneumonia: Repeat chest x-ray performed on 08/10 showed a improving right sided pulmonary opacities with no change in left side. Continue clindamycin PO until 08/22. -stage IV sacral ulcer w osteomyelitis: CT pelvis confirmed osteomyelitis- continue vancomycin for 6 weeks from start stage. Start: 08/07 Stop: 09/18. continue wound vac at this time. -continue probiotic for duration of antibiotic therapy as patient is on two broad spectrum antibiotics. -stage III right buttocks ulcer: apply santyl and cover with foam qMWF -sacrococcyx stage 1: apply barrier cream to area and continue to offload -offload all pressure wounds and avoid direct pressure-air mattress in place -medical management per primary team -continue monitor CBC and BMP-no leukocytosis at this time -continue to monitor percent infection Plan of care discussed with Dr. Celis. Thank you for consultation. Physician Review: Patient Assessed, Agree with Above Assessment and Plan
[2020-08-15] MEDS: EPOETIN ALFA-EPBX 4,000 UNIT/ML VIAL SQ SCH (12:50)
--- NOTE | 2020-08-15 13:10 | RAD REPORT ---
EXAM DESCRIPTION: RAD - Abdomen 1 View (KUB) - 08/14/2020 11:35 pm CLINICAL HISTORY Check new OG tube placement COMPARISON: None. FINDINGS: OG tube with tip curled in the gastric antrum. Right femoral access central venous cathete r. Atherosclerotic vascular calcification. Prior fixation of the proximal left femur. Degenerative [place] of the spine. No definite free intraperitoneal air. No definite dilated loops of bowel. IMPRESSION: 1. OG tube with in appropriate position with tip in the distal stomach. Electronically signed by: Sergio Tanner 08/14/2020 11:43 PM POWERHOUSE ELECTRICIAN APPRENTICE Due to temporary technical issues with the PACS/Fluency reporting system, reports are being signed by the in house radiologists without review as a courtesy to insure prompt reporting. The interpreting radiologist is fully responsible for the content of the report.
--- NOTE | 2020-08-15 14:11 | EEG ---
CHART: [id number] TEST ID#: [id number] DATE OF STUDY: 08/15/2020 THE EEG WAS RECORDED PORTABLE IN THE ER/ICU-ROOM TWELVE ON A 17 CHANNEL MACHINE. ELECTRODES WERE APPLIED IN THE USUAL MANNER USING THE INTERNATIONAL 10-20 SYSTEM. THE WAKING BACKGROUND RHYTHM IN THIS RECORD CONSISTS OF VERY WELL DEVELOPED AND POORLY ORGANIZED WAVES OF 1.5-2 HZ., MAXIMAL IN THE FRONTAL HEAD REGION WHICH DO NOT ATTENUATE NORMALLY WITH EYE OPENING. THERE IS NO POSTERIOR DOMINANT RHYTHM. LOW-VOLTAGE 15-18 HZ ACTIVITY IS DIFFUSELY EXPRESSED. THERE ARE NO FOCAL OR LATERALIZING FEATURES. NO EPILEPTIFORM ACTIVITY APPEARS. SLEEP DID NOT OCCUR. HYPERVENTILATION WAS NOT PERFORMED. PHOTIC STIMULATION WAS NOT PERFORMED. IMPRESSION: THIS IS A MODERATELY TO SEVERELY ABNORMAL EEG DUE TO A MODERATE TO SEVERELY SLOW BACKGROUND AND ABSENT POSTERIOR DOMINANT RHYTHM. THIS FINDING ARE NON-SPECIFIC AND CONSISTENT WITH A MODERATE TO SEVERE DIFFUSE DISTURBANCE IN CEREBRAL FUNCTION. NO EPILEPTIFORM ACTIVITY WAS RECORDED.
--- NOTE | 2020-08-15 16:02 | P.CNS ---
Date of Consult: 08/15/20 Reason for Consult: cardiopulmonary arrest Chief Complaint: cardiopulmonary arrest History of Present Illness: patient is 65 years of age with a history of chronic renal failure diastolic dysfunction admitted 0 0 with volume overload she developed cardiopulmonary arrest currently on a ventilator unresponsive on deep pain had she does have an increase in respiratory rate history of diabetes with peripheral neuropathy according to the was present at the bedside prior to this admission patient was very conversant patient also has multiple wounds including a sacral ulcers osteomyelitis and possible pneumonia Allergies Penicillins Allergy (Verified 08/30/17 10:31) Hives Home Medications: Ascorbic Acid [C-1000] 1,000 mg PO DAILY 08/06/20 B-Complex with Vitamin C [Super B Complex-Vitamin C] 1 tab PO DAILY 08/06/20 Biotin 1 cap PO DAILY 08/06/20 Calcium Carbonate [Tums Regular*] 2 tab PO TID 08/06/20 Cholecalciferol (Vitamin D3) [Vitamin D3] 5,000 unit PO DAILY 08/06/20 Esomeprazole Magnesium 40 mg PO DAILY 08/06/20 Folic Acid/Vit B Complex and C [Judy-Karl Tablet] 1 tab PO DAILY 08/06/20 Isosorbide Mononitrate [Isosorbide Mononitrate ER] 60 mg PO BEDTIME 08/06/20 Levothyroxine Sodium [Synthroid] 2 tab PO DAILY 08/06/20 Mecobalamin [B12 Active] 50,000 mg PO DAILY 08/06/20 Supai-3/Dha/Epa/Fish Oil [Fish Oil Supai-3 EC 1,200 mg] 1 cap PO DAILY 08/06/20 Pravastatin Sodium 20 mg PO BEDTIME 08/06/20 Vitamin B Complex [Vitamin B Complex*] 1 cap PO DAILY 08/06/20 Zinc 22 mg PO DAILY 08/06/20 - Past Medical/Surgical History Diabetic: Yes -: dm -: htn -: End-stage renal disease on hemodialysis -: Hypothyroidism -: Type 1 DM on insulin pump -: kidney transplant -: cataract sx -: breast augmentation - Family History Father Medical History: Heart disease - Social History Smoking Status: Unknown if ever smoked Alcohol use: No CD- Drugs: No Caffeine use: Yes Place of Residence: Home Review of Systems is unable to be obtained Physical Examination Temp Pulse Resp BP Pulse Ox 98.9 F 76 18 102/52 L 100 08/15/20 12:06 08/15/20 13:00 08/15/20 13:00 08/15/20 13:00 08/15/20 13:00 General: Unresponsive Respiratory: Clear to auscultation bilaterally, Diminished, Other ( patient's legs have been wrapped in bandages) Cardiovascular: Normal S1 S2, Edema - Problems (1) Cardiopulmonary arrest Current Visit: Yes Status: Acute Plan: patient is 65 years of age admitted with cardiopulmonary arrest history of multiple wound infections including a pneumonia patient's vital signs are stable repeat EEG pending white count is minimally elevated pressure emboli pneumonia on the left lungs patient is not appear to be clinically septic or patient niece to be covered for gram-negative organisms marker meropenem has been stop had p.o. levofloxacin and take doxycycline/ clindamycin cover for Mr and Pseudomonas she is high risk
[2020-08-15 16:29] LABS: Arterial Blood Carboxyhemoglob 2.1 % (0-1.5)
--- NOTE | 2020-08-15 16:59 | P.PN ---
Subjective Date of Service: 08/15/20 Chief Complaint: cardiopulmonary arrest Subjective: No new changes (code blue yesterday. remains urnesponsive - no sedation given. last received Tylenol #3 yesterday at ~noon. opens eyes / blinks at times, but doesn't seem to be in response to anything, does not withdraw to pain. Off pressors this morning) Review of Systems is unable to be obtained Physical Examination - Vital Signs Temperature: 98.9 F Blood Pressure: 102/52 Pulse: 76 Respirations: 18 Pulse Ox (%): 100 - Physical Exam Other Physical/Emotional Findings: General: Moderate distress, Confused, Other. HEENT: Atraumatic, Normocephalic. Neck: Supple, 2+ carotid pulse no bruit. Respiratory: Patient is intubated, carse breath sounds bilaterally. Cardiovascular: Regular rate/rhythm, Normal S1 S2. Capillary refill: <2 Seconds. Gastrointestinal: Normal bowel sounds, Soft and benign. Musculoskeletal: Other (Bilateral lower extremities wrapped with Wayne wraps). Integumentary: right buttock stage 3 pressure wound:5x3cm, majority slough tissue present, periwound tissue shows purple/red discoloration. Sacral pressure wound stage 4: 2.5x1x1 cm. tunnling at 1 oclock position measuring 3.2 cm. Base of wound shows granulation tissue-minimal drainage. sacrococcyx stage 1: redness noted around area, surrounding stage 4 sacral wound. . Lymphatics: No axilla or inguinal lymphadenopathy. Assessment & Plan Physician Review Additional Text: Physical Exam General: intubated, unresponsive HEENT: ETT and OG tube in place Pulm: ventilated, diminished at bases bilaterally L>R Cardiovascular: Regular rate/rhythm, 1+ b/l edema noted in posterior thighs. Lower extremities wrapped in WAYNE Gastrointestinal: soft, nontender / nondistended Integumentary: sacral ulcer with wound vac in place Problem List Acute hypoxia secondary to volume overload and left lower lobe pneumonia ESRD with Volume overload ESRD (end stage renal disease) on dialysis Pressure ulcer of sacral region, stage 4 Right ischial pressure sore, stage 3 Type 1 diabetes mellitus on insulin pump at home Anemia in chronic kidney disease code blue and intubated on 08/14 EEG today - slow waves, severely abnormal, Dr. Norwood recommended repeat EEG tomorrow, CT brain tomorrow. to compare and see if progressing. Patient's vent rate slowed - did not breathe over vent Echocardiogram: Diastolic dysfunction, normal LV EF: 73%, LV hypertrophy. CRP was improving. Pro calcitonin elevated. CT pelvis, still with signs of sacral osteomyelitis ID consulted, recommend meropenem changed to clinda PO for ~1more week and wiil need 6 weeks of vancomycin for osteomyelitis (to continue with dialysis) Dr. Almodovar consulted for sacral ulcer - agrees with Wound vac placement - medical social worker consulted for home wound vac machine Blood culture with no growth so far Hemodialysis per nephrology. difficult to pull volume due to low blood pressure Dispo: poor prognosis. updated after EEG findings repeat testing tomorrow. Family seem receptive to clinical status. stated "she would not want to be a vegetable, or like this for much longer" Time Spent Managing Pts Care (In Minutes): 35
[2020-08-15] MEDS: levoFLOXacin 250 MG TAB PO SCH (17:14)
[2020-08-15] MEDS ORDERED: levoFLOXacin 250 MG TAB ONE (17:31)
[2020-08-15] MEDS: ATORVASTATIN 10 MG TAB PO SCH (20:51)
--- NOTE | 2020-08-15 21:44 | P.PN ---
Date of Service: 08/15/20 Vital Signs Temp Pulse Resp BP Pulse Ox 98.9 F 75 16 103/55 L 100 08/15/20 16:59 08/15/20 18:00 08/15/20 18:00 08/15/20 18:00 08/15/20 18:00 Medications Acetaminophen/Codeine Phosphate (Codeine 30mg/Apap 300mg Tab) 2 tab PO Q6H PRN PRN Reason: Pain scale 5-7 (Moderate) Last Admin: 08/14/20 11:41 Dose: 2 tab Documented by: Albuterol Sulfate (Albuterol 2.5 Mg/3 Ml Neb Lavern) 2.5 mg NEB [id number] PRN PRN Reason: SHORTNESS OF BREATH Ascorbic Acid (Ascorbic Acid 500 Mg Tablet) 1,000 mg PO DAILY [facility] Last Admin: 08/15/20 07:16 Dose: Not Given Documented by: Aspirin (Aspirin Ec 81 Mg Tab) 81 mg PO DAILY [facility] Last Admin: 08/15/20 09:00 Dose: Not Given Documented by: Atorvastatin Calcium (Atorvastatin 10 Mg Tab) 10 mg PO BEDTIME [facility] Last Admin: 08/15/20 20:51 Dose: 10 mg Documented by: Calcitriol (Calcitrol 0.25 Mcg Cap) 0.5 mcg PO DAILY [facility] Last Admin: 08/15/20 07:16 Dose: Not Given Documented by: Calcium Carbonate/Glycine (Calcium Carbonate Chew 500mg Tab) 1,000 mg PO TID [facility] Last Admin: 08/15/20 20:52 Dose: Not Given Documented by: Cholecalciferol (Vitamin D 5,000 Unit Cap) 5,000 unit PO DAILY [facility] Last Admin: 08/15/20 07:17 Dose: Not Given Documented by: Clindamycin HCl (Clindamycin Hcl 150 Mg Cap) 300 mg PO TID [facility]; Protocol Stop: 08/22/20 23:59 Last Admin: 08/15/20 20:50 Dose: 300 mg Documented by: Collagenase (Collagenase 30 Gm Ointment) 1 appl TOP MoWeFr@0900 [facility] Last Admin: 08/15/20 09:00 Dose: Not Given Documented by: Cyanocobalamin (Cyanocobalamin 1,000 Mcg Tab) 1,000 mcg PO DAILY [facility] Last Admin: 08/15/20 08:41 Dose: Not Given Documented by: Dextrose (D50w 25 Gm/50 Ml Vial) 12.5 gm IV PRN PRN; Protocol PRN Reason: HYPOGLYCEMIA Last Admin: 08/13/20 23:01 Dose: 12.5 gm Documented by: Dextrose (D50w 25 Gm/50 Ml Syringe) 12.5 gm IV PRN PRN; Protocol PRN Reason: HYPOGLYCEMIA Dextrose (D50w 25 Gm/50 Ml Syringe) 12.5 gm IV PRN PRN; Protocol PRN Reason: HYPOGLYCEMIA Docusate Sodium (Docusate Na 100 Mg Cap) 100 mg PO BID [facility] Last Admin: 08/15/20 20:51 Dose: Not Given Documented by: Enteral Nutritional Formula (Nepro Shake 237 Ml Can) 237 ml PO BID [facility] Last Admin: 08/15/20 20:52 Dose: Not Given Documented by: Famotidine (Famotidine 20 Mg Tab) 20 mg PO DAILY [facility]; Protocol Last Admin: 08/15/20 09:33 Dose: 20 mg Documented by: Glucagon (Glucagon 1 Mg/Vial) 1 mg IM 1X PRN; Protocol PRN Reason: HYPOGLYCEMIA Glucagon (Glucagon 1 Mg/Vial) 1 mg IM 1X PRN; Protocol PRN Reason: HYPOGLYCEMIA Guaifenesin (Guaifenesin 600 Mg Sa Tab) 1,200 mg PO BID [facility] Last Admin: 08/15/20 20:51 Dose: Not Given Documented by: Heparin Sodium (Porcine) (Heparin 5000 Unit/Ml 1 Ml Vial) 5,000 unit SQ Q12HR [facility] Last Admin: 08/15/20 20:51 Dose: 5,000 unit Documented by: Heparin Sodium (Porcine) (Heparin 1,000 Unit/Ml Vial) 2,000 unit IV EVERY HD PRN PRN Reason: dialysis Last Admin: 08/12/20 09:50 Dose: 2,000 unit Documented by: Home Med (Biotin [Biotin]) 1 cap PO DAILY [facility] Last Admin: 08/15/20 07:14 Dose: Not Given Documented by: Hydralazine HCl (Hydralazine Hcl 20 Mg/Ml Vial) 10 mg IV Q6HP PRN PRN Reason: Titrate to SBP (MUST DEFINE) Vancomycin HCl 500 mg/ Sodium (Chloride) 100 mls @ 100 mls/hr IVPB AFTER EACH DIALYSIS [facility] Norepinephrine Bitartrate 4 mg (/ Dextrose) 254 mls @ 0 mls/hr IV PRN PRN; Protocol PRN Reason: Hemodynamic Parameters Last Admin: 08/14/20 17:30 Dose: 254 mls Documented by: Sodium Chloride (Ns 1000 Ml Ivbag) 1,000 mls @ 50 mls/hr IV .Q20H [facility] Last Admin: 08/15/20 16:40 Dose: 1,000 mls Documented by: Insulin Human Regular (Insulin -Regular Human 50 Unit/0.5 Ml Ml) 0 unit SQ Q6HR [facility]; Protocol Last Admin: 08/15/20 17:38 Dose: Not Given Documented by: Lactobacillus Acidoph/Bulgaricus (Lactobacillus/Acidophilus Tab) 1 tab PO BID [facility] Last Admin: 08/15/20 20:50 Dose: 1 tab Documented by: Levofloxacin (Levofloxacin 250 Mg Tab) 250 mg PO DAILY [facility]; Protocol Last Admin: 08/15/20 17:14 Dose: 250 mg Documented by: Levothyroxine Sodium (Levothyroxine Sod 0.075 Mg Tab) 0.15 mg PO DAILY [facility] Last Admin: 08/15/20 09:00 Dose: Not Given Documented by: Ondansetron HCl (Ondansetron 4 Mg/2 Ml Vial) 4 mg IV Q8H PRN PRN Reason: NAUSEA / VOMITING Last Admin: 08/13/20 23:01 Dose: 4 mg Documented by: Pantoprazole Sodium (Pantoprazole 40mg Tablet) 40 mg PO DAILY [facility] Last Admin: 08/15/20 07:15 Dose: Not Given Documented by: Sodium Chloride (Flush Normal Saline 10 Ml) 10 ml IV BID [facility] Last Admin: 08/15/20 20:51 Dose: 10 ml Documented by: Sodium Hypochlorite (Sodium Hypochlorite 0.25% 473 Ml) 1 appl TOP DAILY [facility] Last Admin: 08/15/20 09:00 Dose: Not Given Documented by: Vitamin B Complex (Vitamin B Complex 1 Cap) 1 cap PO DAILY [facility] Last Admin: 08/15/20 07:14 Dose: Not Given Documented by: Vitamin B Complex/Vit C/Folic Acid (Multivitamins,Therapeut 1 Tab) 1 tab PO DAILY [facility] Last Admin: 08/15/20 07:15 Dose: Not Given Documented by: Zinc Sulfate (Zinc Sulfate 220 Mg Cap) 220 mg PO DAILY [facility] Last Admin: 08/15/20 07:17 Dose: Not Given Documented by: Assessment/ Plan: Nephrology/ ICU Cardiopulmonary arrest on Saturday08-14-20. Limited IH/ ROS due to AMS. Case reviewed with nurse. Vitals, medications, blood work and imaging reviewed in the chart. Intubated. Not sedated. NAD. Pupils pinpoint. MMM. Neck supple. CTA. RRR. Soft Abd. No C/C. Hip edema1+. No rash. Unresponsive. Poor hearing. No Speech. Sacral ulcer A/P: Continue the current POC and Medications other than the changes listed. AM Labs PRN. Recommend daily weight. Please see the orders for complete details. ESRD -HD MWF -No HD today. Hypokalemia/ Hyperkalemia HTN with CKD/ CHF complicated by hypotension -Hydralazine PRN A/C Diastolic CHF Anasarca -Low sodium diet -UF with HD as tolerated DM I with Polyneuropathy/ CKD -NPO Severe malnutriton with hypoalbuminemia -IV Albumin with HD as needed Anemia in CKD -Continue Retacrit TAWNYA/ Secondary HyperPTH -Continue Vitamin D3 Stage 3 Sacral Pressure Ulcer -Air mattress -Tylenol #3 as needed for pain. LLL PNA -Continue Vancomycin and Levaquin Sacral ulcer with osteomyelitis -Wound care as ordered -Continue Vancomycin and Levaquin Toxic metabolic encephalopathy concerning for anoxia -Plan for EEG today
[2020-08-16] MEDS: INSULIN -REGULAR HUMAN 50 UNIT/0.5 ML ML SQ SCH ×4 (05:47→23:23)
[2020-08-16] MEDS ORDERED: INSULIN -REGULAR HUMAN 50 UNIT/0.5 ML ML ONE (05:47)
[2020-08-16 05:57] LABS: Absolute Lymphocytes (CBC) 0.9 K/uL (0.7-4.9); Basophils % 0.5 % (0-1.3); Hematocrit 31.9 % (36.0-45.0); Lymphocytes % 12.7 % (15.3-44.8); MPV 8.9 fL (7.6-11.3); RBC Red Blood Cell Count 3.29 M/uL (3.86-4.86)
[2020-08-16 06:02] LABS: Albumin 2.1 g/dL (3.4-5.0); Bilirubin Total 1.3 mg/dL (0.2-1.0); Magnesium 2.7 mg/dL (1.8-2.4); Phosphorus 3.2 mg/dL (2.5-4.9); Potassium 4.4 mmol/L (3.5-5.1); Protein, Total 5.5 g/dL (6.4-8.2)
[2020-08-16 06:13] LABS: Arterial Blood Carboxyhemoglob 1.9 % (0-1.5); Blood Gas Oxyhemoglobin 94.4 % (94-97); Blood O2 Saturation 97.2 % (92-98.5)
[2020-08-16] MEDS: DOCUSATE NA 100 MG CAP PO SCH ×2 (07:01→21:00)
[2020-08-16] MEDS: BIOTIN 5000 MCG PO SCH (07:01)
[2020-08-16] MEDS: VITAMIN B COMPLEX 1 CAP PO SCH (07:01)
[2020-08-16] MEDS: MULTIVITAMINS,THERAPEUT 1 TAB PO SCH (07:02)
[2020-08-16] MEDS: GUAIFENESIN 600 MG SA TAB PO SCH ×2 (07:02→21:00)
[2020-08-16] MEDS: LACTOBACILLUS/ACIDOPHILUS TAB PO SCH ×2 (07:02→21:00)
[2020-08-16] MEDS: NEPRO SHAKE 237 ML CAN PO SCH ×2 (07:02→21:00)
[2020-08-16] MEDS: CALCITROL 0.25 MCG CAP PO SCH (07:03)
[2020-08-16] MEDS: CALCIUM CARBONATE CHEW 500MG TAB PO SCH ×3 (07:03→21:00)
[2020-08-16] MEDS: PANTOPRAZOLE 40MG TABLET PO SCH (07:03)
[2020-08-16] MEDS: ASCORBIC ACID 500 MG TABLET PO SCH (07:04)
[2020-08-16] MEDS: CYANOCOBALAMIN 1,000 MCG TAB PO SCH (07:04)
[2020-08-16] MEDS: VITAMIN D 5,000 UNIT CAP PO SCH (07:04)
[2020-08-16] MEDS: ASPIRIN EC 81 MG TAB PO SCH (07:04)
[2020-08-16] MEDS: ZINC SULFATE 220 MG CAP PO SCH (07:04)
[2020-08-16] MEDS: LEVOTHYROXINE SOD 0.075 MG TAB PO SCH ×2 (07:48→07:49)
[2020-08-16] MEDS: levoFLOXacin 250 MG TAB PO SCH (07:49)
[2020-08-16] MEDS: HEPARIN 5000 UNIT/ML 1 ML VIAL SQ SCH ×2 (07:49→23:01)
[2020-08-16] MEDS: FAMOTIDINE 20 MG TAB PO SCH (07:49)
[2020-08-16] MEDS ORDERED: levoFLOXacin 250 MG TAB ONE (07:51)
[2020-08-16] MEDS ORDERED: FAMOTIDINE 20 MG TAB ONE (07:51)
[2020-08-16] MEDS ORDERED: HEPARIN 5000 UNIT/ML 1 ML VIAL ONE ×2 (07:51→23:16)
--- NOTE | 2020-08-16 07:58 | RAD REPORT ---
EXAM DESCRIPTION: CT - Head Brain Wo Cont - 08/16/2020 4:35 am CLINICAL HISTORY: Alteration of awareness/confusion COMPARISON: June 2020 TECHNIQUE: Computed axial tomography of the head was obtained. IV contrast was not requested. All CT scans are performed using dose optimization technique as appropriate and may include automated exposure control or mA/KV adjustment according to patient size. FINDINGS: An intracranial bleed is not seen . The ventricles are normal in caliber. No extra-axial fluid collection is noted. Mild low-density areas within periventricular, deep and subcortical white matter likely represent isc hemic changes secondary to small vessel disease. Cerebral atrophy is noted. Fluid within the sinuses/ mastoids is not seen. Chronic maxillary sinusitis IMPRESSION: No acute intracranial abnormality is seen. If patient's symptoms persist MRI of the bra in would be recommended.
--- NOTE | 2020-08-16 10:43 | RAD REPORT ---
EXAM DESCRIPTION: Willis Single View08/16/2020 10:30 am CLINICAL HISTORY: Shortness of breath COMPARISON: August 14, 2020 FINDINGS: Worsening in the left basilar opacity. Small pleural effusions. Partial resolution in mild additional bilateral pulmonary opacities. Heart remains enlarged Endotracheal tube has its tip overlying the mid aortic arch. Nasogastric tube in place IMPRESSION: Worsening in a left basilar opacity which may represent a combination of atelectasis and pneumonia. Small pleural effusions Partial resolution in mild bilateral additional pulmonary opacities probably mild interstitial pulmon sammy edema
[2020-08-16] MEDS: SODIUM HYPOCHLORITE 0.25% 473 ML TOP SCH (11:22)
--- NOTE | 2020-08-16 12:02 | P.PN ---
Subjective Date of Service: 08/16/20 Chief Complaint: cardiopulmonary arrest Subjective: Improving (Patient is opening her eyes some more responsive were ) Review of Systems is unable to be obtained Physical Examination - Vital Signs Temperature: 97.0 F Blood Pressure: 101/57 Pulse: 73 Respirations: 16 Pulse Ox (%): 100 - Physical Exam General: Unresponsive (Will open eyes) Neck: Supple Respiratory: Clear to auscultation bilaterally Cardiovascular: No edema, Normal S1 S2 Other Physical/Emotional Findings: General: Moderate distress, Confused, Other. HEENT: Atraumatic, Normocephalic. Neck: Supple, 2+ carotid pulse no bruit. Respiratory: Patient is intubated, carse breath sounds bilaterally. Cardiovascular: Regular rate/rhythm, Normal S1 S2. Capillary refill: <2 Seconds. Gastrointestinal: Normal bowel sounds, Soft and benign. Musculoskeletal: Other (Bilateral lower extremities wrapped with Wayne wraps). Integumentary: right buttock stage 3 pressure wound:5x3cm, majority slough tissue present, periwound tissue shows purple/red discoloration. Sacral pressure wound stage 4: 2.5x1x1 cm. tunnling at 1 oclock position measuring 3.2 cm. Base of wound shows granulation tissue-minimal drainage. sacrococcyx stage 1: redness noted around area, surrounding stage 4 sacral wound. . Lymphatics: No axilla or inguinal lymphadenopathy. Assessment & Plan - Problems (Diagnosis) (1) Cardiopulmonary arrest Current Visit: Yes Status: Acute Plan: Cardiopulmonary arrest the EEG shows moderate to severe dysfunction head CT no evidence of edema vital signs stable white count is normalized will Dc clindamycin continue with vancomycin and Levaquin doubt aspiration pneumonia unable to wean off the ventilator on 40% FiO2 anaerobes usually not a factor last his lung abscess or empyema the to cover g negatives more than the anaerobes high risk for diarrhea and super infection with C difficile using clindamycin Physician Review: Patient Assessed, Agree with Above Assessment and Plan
[2020-08-16] MEDS ORDERED: ALBUTEROL 2.5 MG/3 ML NEB SOL NEB PRN (14:12)
--- NOTE | 2020-08-16 15:02 | P.PN ---
Subjective Date of Service: 08/16/20 Chief Complaint: cardiopulmonary arrest Patient intubated, unresponsive, not on sedation. Currently NPO. Blood pressure is stable. Not on pressors. Physical Examination - Vital Signs Temperature: 97.0 F Blood Pressure: 118/62 Pulse: 71 Respirations: 16 Pulse Ox (%): 100 - Physical Exam General: Unresponsive HEENT: Other (ETT, NGT) Neck: JVD not distended Respiratory: Other (Bilateral upper airway transmitted sounds.) Cardiovascular: Regular rate/rhythm, Normal S1 S2, Edema (Bilateral lower extremities and upper extremities) Gastrointestinal: Normal bowel sounds, Soft and benign, Non-distended Musculoskeletal: No contractures Integumentary: Other (Sacral decubitus ulcer stage IV) Neurological: Other (Unresponsive, no limb movement.) Other Physical/Emotional Findings: General: Moderate distress, Confused, Other. HEENT: Atraumatic, Normocephalic. Neck: Supple, 2+ carotid pulse no bruit. Respiratory: Patient is intubated, carse breath sounds bilaterally. Cardiovascular: Regular rate/rhythm, Normal S1 S2. Capillary refill: <2 Seconds. Gastrointestinal: Normal bowel sounds, Soft and benign. Musculoskeletal: Other (Bilateral lower extremities wrapped with Wayne wraps). Integumentary: right buttock stage 3 pressure wound:5x3cm, majority slough tissue present, periwound tissue shows purple/red discoloration. Sacral pressure wound stage 4: 2.5x1x1 cm. tunnling at 1 oclock position measuring 3.2 cm. Base of wound shows granulation tissue-minimal drainage. sacrococcyx stage 1: redness noted around area, surrounding stage 4 sacral wound. . Lymphatics: No axilla or inguinal lymphadenopathy. Assessment And Plan - Current Problems (Diagnosis) (1) Volume overload Current Visit: Yes Status: Acute (2) ESRD (end stage renal disease) on dialysis Onset Date: 06/17/17 Current Visit: No Status: Chronic (3) Pressure ulcer of sacral region, stage 3 Current Visit: No Status: Chronic (4) Right ischial pressure sore, stage 3 Current Visit: No Status: Chronic (5) Type 1 diabetes mellitus on insulin therapy Onset Date: 06/27/18 Current Visit: No Status: Chronic (6) Pneumonia Current Visit: Yes Status: Acute (7) Anemia in chronic kidney disease Current Visit: Yes Status: Acute Physician Review: Patient Assessed, Agree with Above Assessment and Plan Physician Review Additional Text: Physical Exam General: intubated, unresponsive HEENT: ETT and OG tube in place Pulm: ventilated, diminished at bases bilaterally L>R Cardiovascular: Regular rate/rhythm, 1+ b/l edema noted in posterior thighs. Lower extremities wrapped in WAYNE Gastrointestinal: soft, nontender / nondistended Integumentary: sacral ulcer with wound vac in place Problem List Acute hypoxia secondary to volume overload and left lower lobe pneumonia ESRD with Volume overload ESRD (end stage renal disease) on dialysis Pressure ulcer of sacral region, stage 4 Right ischial pressure sore, stage 3 Type 1 diabetes mellitus on insulin pump at home Anemia in chronic kidney disease. Cardiac arrest code blue and intubated on 08/14 EEG today - slow waves, severely abnormal, Dr. Norwood recommended repeat EEG today, CT brain: No acute changes. No spontaneous breathing movement. Echocardiogram: Diastolic dysfunction, normal LV EF: 73%, LV hypertrophy. Pro calcitonin elevated. CT pelvis, still with signs of sacral osteomyelitis ID following. recommended meropenem changed to clinda PO and then vancomycin. Patient will need need 6 weeks of vancomycin for osteomyelitis (to continue with dialysis) Dr. Almodovar consulted for sacral ulcer - agrees with Wound vac placement - hospice social worker consulted for home wound vac machine Blood culture with no growth so far Hemodialysis per nephrology. difficult to pull volume due to low blood pressure Dispo: poor prognosis. updated after EEG findings. I suspect anoxic encephalopathy. Neurology to see patient to confirm anoxic encephalopathy, and then discussions on withdrawal of care. Patient is DNR.
--- NOTE | 2020-08-16 15:03 | P.PN ---
Subjective Date of Service: 08/16/20 Chief Complaint: cardiopulmonary arrest Patient seen and examined here holding. BP he did show brain function. Patient is more responsive today and, plan Mister repeats had CT tomorrow. Antibiotics changed from clindamycin and Levaquin. Continue Levaquin and vancomycin and this time. Review of Systems 10-point ROS is otherwise unremarkable Physical Examination - Vital Signs Temperature: 97.0 F Blood Pressure: 118/62 Pulse: 71 Respirations: 16 Pulse Ox (%): 100 - Physical Exam Other Physical/Emotional Findings: General: Moderate distress, Confused, Other. HEENT: Atraumatic, Normocephalic. Neck: Supple, 2+ carotid pulse no bruit. Respiratory: Patient is intubated, carse breath sounds bilaterally. Cardiovascular: Regular rate/rhythm, Normal S1 S2. Capillary refill: <2 Seconds. Gastrointestinal: Normal bowel sounds, Soft and benign. Musculoskeletal: Other (Bilateral lower extremities wrapped with Wayne wraps). Integumentary: right buttock stage 3 pressure wound:5x3cm, majority slough tissue present, periwound tissue shows purple/red discoloration. Sacral pressure wound stage 4: 2.5x1x1 cm. tunnling at 1 oclock position measuring 3.2 cm. Base of wound shows granulation tissue-minimal drainage. sacrococcyx stage 1: redness noted around area, surrounding stage 4 sacral wound. . Lymphatics: No axilla or inguinal lymphadenopathy. - Studies Laboratory Last Values WBC 6.20 K/uL (4.3-10.9) 08/07/20 04:17 RBC 3.04 M/uL (3.86-4.86) L 08/07/20 04:17 Hgb 9.5 g/dL (12.0-15.0) L 08/07/20 04:17 Hct 30.4 % (36.0-45.0) L 08/07/20 04:17 MCV 100.3 fL (80-100) H 08/07/20 04:17 MCH 31.2 pg (27.0-35.0) 08/07/20 04:17 MCHC 31.1 g/dL (32.0-36.0) L 08/07/20 04:17 RDW 18.9 % (12.1-15.2) H 08/07/20 04:17 Plt Count 233 K/uL (152-406) 08/07/20 04:17 MPV 8.0 fL (7.6-11.3) 08/07/20 04:17 Neutrophils % 77.6 % (41.7-73.7) H 08/07/20 04:17 Lymphocytes % 10.4 % (15.3-44.8) L 08/07/20 04:17 Monocytes % 8.9 % (3.3-12.3) 08/07/20 04:17 Eosinophils % 1.9 % (0-4.4) 08/07/20 04:17 Basophils % 1.2 % (0-1.3) 08/07/20 04:17 Absolute Neutrophils 4.8 K/uL (1.8-8.0) 08/07/20 04:17 Absolute Lymphocytes 0.6 K/uL (0.7-4.9) L 08/07/20 04:17 Absolute Monocytes 0.5 K/uL (0.1-1.3) 08/07/20 04:17 Absolute Eosinophils 0.1 K/uL (0-0.5) 08/07/20 04:17 Absolute Basophils 0.1 K/uL (0-0.5) 08/07/20 04:17 PT 15.3 SECONDS (9.5-12.5) H 08/05/20 23:57 INR 1.33 08/05/20 23:57 Sodium 140 mmol/L (136-145) 08/07/20 04:17 Potassium 4.1 mmol/L (3.5-5.1) 08/07/20 04:17 Chloride 106 mmol/L (98-107) 08/07/20 04:17 Carbon Dioxide 25 mmol/L (21-32) 08/07/20 04:17 BUN 31 mg/dL (7-18) H 08/07/20 04:17 Creatinine 3.20 mg/dL (0.55-1.3) H 08/07/20 04:17 Estimated GFR 14 mL/min (=/>90) L 08/07/20 04:17 Glucose 230 mg/dL (74-106) H 08/07/20 04:17 POC Glucose 286 mg/dL (65-120) H 08/07/20 11:08 Calcium 9.0 mg/dL (8.5-10.1) 08/07/20 04:17 Magnesium 2.1 mg/dL (1.8-2.4) 08/05/20 23:57 Total Bilirubin 0.7 mg/dL (0.2-1.0) 08/07/20 04:17 Direct Bilirubin 0.2 mg/dL (0-0.2) 08/05/20 23:57 AST 15 U/L (15-37) 08/07/20 04:17 ALT < 6 U/L (12-78) L 08/07/20 04:17 Alkaline Phosphatase 177 U/L (45-117) H 08/07/20 04:17 Rapid Troponin I 0.02 ng/mL (0.0-0.045) 08/05/20 23:57 Troponin I < 0.02 ng/mL (0.0-0.045) 08/06/20 08:50 NT-Pro-B Natriuret Pep 38929 pg/mL (<125) H 08/05/20 23:57 Serum Total Protein 6.0 g/dL (6.4-8.2) L 08/07/20 04:17 Albumin 1.9 g/dL (3.4-5.0) L 08/07/20 04:17 Globulin 4.1 g/dL (2.3-3.5) H 08/07/20 04:17 Albumin/Globulin Ratio 0.5 (1.1-1.8) L 08/07/20 04:17 SARS-CoV-2 RNA (RT-PCR) Negative (NEGATIVE) 08/06/20 03:48 Assessment And Plan - Plan Antibiotics: levaqin start: 08/15 stop: --pulmonology ordered/following. indication: pneumonia Vancomycin start: 08/07 stop: 09/18 indication: pelvic osteomyelitis Assessment: -pneumonia -stage IV sacral ulcer w osteomyelitis -stage III right buttocks ulcer -DTI to sacrococcyx area -ESRD on HD -diabetes type 2 -anemia plan: -pneumonia: Pulmonology following. Changed secondary to Levaquin -stage IV sacral ulcer w osteomyelitis: CT pelvis confirmed osteomyelitis- continue vancomycin for 6 weeks from start stage. Start: 08/07 Stop: 09/18. continue wound vac at this time. -continue probiotic for duration of antibiotic therapy as patient is on two broad spectrum antibiotics. -stage III right buttocks ulcer: apply santyl and cover with foam qMWF -sacrococcyx stage 1: apply barrier cream to area and continue to offload -offload all pressure wounds and avoid direct pressure-air mattress in place -medical management per primary team -continue monitor CBC and BMP-no leukocytosis at this time -continue to monitor percent infection Plan of care discussed with Dr. Celis. Thank you for consultation. Physician Review: Patient Assessed, Agree with Above Assessment and Plan
[2020-08-16] MEDS ORDERED: ALBUMIN HUMAN 25% 100 ML IV SCH (17:00)
--- NOTE | 2020-08-16 18:01 | P.PN ---
Date of Service: 08/16/20 Vital Signs Temp Pulse Resp BP Pulse Ox 97.0 F 71 16 118/62 100 08/16/20 15:06 08/16/20 15:06 08/16/20 15:06 08/16/20 15:06 08/16/20 15:06 Medications Acetaminophen/Codeine Phosphate (Codeine 30mg/Apap 300mg Tab) 2 tab PO Q6H PRN PRN Reason: Pain scale 5-7 (Moderate) Last Admin: 08/14/20 11:41 Dose: 2 tab Documented by: Albuterol Sulfate (Albuterol 2.5 Mg/3 Ml Neb Lavern) 2.5 mg NEB Q3HP PRN PRN Reason: SHORTNESS OF BREATH Ascorbic Acid (Ascorbic Acid 500 Mg Tablet) 1,000 mg PO DAILY [facility] Last Admin: 08/16/20 07:04 Dose: Not Given Documented by: Aspirin (Aspirin Ec 81 Mg Tab) 81 mg PO DAILY [facility] Last Admin: 08/16/20 07:04 Dose: Not Given Documented by: Atorvastatin Calcium (Atorvastatin 10 Mg Tab) 10 mg PO BEDTIME [facility] Last Admin: 08/15/20 20:51 Dose: 10 mg Documented by: Calcitriol (Calcitrol 0.25 Mcg Cap) 0.5 mcg PO DAILY [facility] Last Admin: 08/16/20 07:03 Dose: Not Given Documented by: Calcium Carbonate/Glycine (Calcium Carbonate Chew 500mg Tab) 1,000 mg PO TID [facility] Last Admin: 08/16/20 12:05 Dose: Not Given Documented by: Cholecalciferol (Vitamin D 5,000 Unit Cap) 5,000 unit PO DAILY [facility] Last Admin: 08/16/20 07:04 Dose: Not Given Documented by: Collagenase (Collagenase 30 Gm Ointment) 1 appl TOP MoWeFr@0900 [facility] Last Admin: 08/15/20 09:00 Dose: Not Given Documented by: Cyanocobalamin (Cyanocobalamin 1,000 Mcg Tab) 1,000 mcg PO DAILY [facility] Last Admin: 08/16/20 07:04 Dose: Not Given Documented by: Dextrose (D50w 25 Gm/50 Ml Vial) 12.5 gm IV PRN PRN; Protocol PRN Reason: HYPOGLYCEMIA Last Admin: 08/13/20 23:01 Dose: 12.5 gm Documented by: Docusate Sodium (Docusate Na 100 Mg Cap) 100 mg PO BID [facility] Last Admin: 08/16/20 07:01 Dose: Not Given Documented by: Enteral Nutritional Formula (Nepro Shake 237 Ml Can) 237 ml PO BID [facility] Last Admin: 08/16/20 07:02 Dose: Not Given Documented by: Famotidine (Famotidine 20 Mg Tab) 20 mg PO DAILY [facility]; Protocol Last Admin: 08/16/20 07:49 Dose: 20 mg Documented by: Glucagon (Glucagon 1 Mg/Vial) 1 mg IM 1X PRN; Protocol PRN Reason: HYPOGLYCEMIA Guaifenesin (Guaifenesin 600 Mg Sa Tab) 1,200 mg PO BID [facility] Last Admin: 08/16/20 07:02 Dose: Not Given Documented by: Heparin Sodium (Porcine) (Heparin 5000 Unit/Ml 1 Ml Vial) 5,000 unit SQ Q12HR [facility] Last Admin: 08/16/20 07:49 Dose: 5,000 unit Documented by: Heparin Sodium (Porcine) (Heparin 1,000 Unit/Ml Vial) 2,000 unit IV EVERY HD PRN PRN Reason: dialysis Last Admin: 08/12/20 09:50 Dose: 2,000 unit Documented by: Home Med (Biotin [Biotin]) 1 cap PO DAILY [facility] Last Admin: 08/16/20 07:01 Dose: Not Given Documented by: Hydralazine HCl (Hydralazine Hcl 20 Mg/Ml Vial) 10 mg IV Q6HP PRN PRN Reason: Titrate to SBP (MUST DEFINE) Vancomycin HCl 500 mg/ Sodium (Chloride) 100 mls @ 100 mls/hr IVPB AFTER EACH DIALYSIS [facility] Norepinephrine Bitartrate 4 mg (/ Dextrose) 254 mls @ 0 mls/hr IV PRN PRN; Protocol PRN Reason: Hemodynamic Parameters Last Admin: 08/14/20 17:30 Dose: 254 mls Documented by: Albumin Human (Albumin 25% 25 Gm) 100 mls @ 0 mls/hr IV UD [facility] Insulin Human Regular (Insulin -Regular Human 50 Unit/0.5 Ml Ml) 0 unit SQ Q6HR [facility]; Protocol Last Admin: 08/16/20 17:36 Dose: Not Given Documented by: Lactobacillus Acidoph/Bulgaricus (Lactobacillus/Acidophilus Tab) 1 tab PO BID [facility] Last Admin: 08/16/20 07:02 Dose: Not Given Documented by: Levofloxacin (Levofloxacin 250 Mg Tab) 250 mg PO DAILY [facility]; Protocol Last Admin: 08/16/20 07:49 Dose: 250 mg Documented by: Levothyroxine Sodium (Levothyroxine Sod 0.075 Mg Tab) 0.15 mg PO DAILY [facility] Last Admin: 08/16/20 07:49 Dose: 0.15 mg Documented by: Ondansetron HCl (Ondansetron 4 Mg/2 Ml Vial) 4 mg IV Q8H PRN PRN Reason: NAUSEA / VOMITING Last Admin: 08/13/20 23:01 Dose: 4 mg Documented by: Sodium Chloride (Flush Normal Saline 10 Ml) 10 ml IV BID [facility] Last Admin: 08/16/20 07:49 Dose: 10 ml Documented by: Sodium Hypochlorite (Sodium Hypochlorite 0.25% 473 Ml) 1 appl TOP DAILY [facility] Last Admin: 08/16/20 11:22 Dose: 1 appl Documented by: Vitamin B Complex (Vitamin B Complex 1 Cap) 1 cap PO DAILY [facility] Last Admin: 08/16/20 07:01 Dose: Not Given Documented by: Vitamin B Complex/Vit C/Folic Acid (Multivitamins,Therapeut 1 Tab) 1 tab PO DAILY [facility] Last Admin: 08/16/20 07:02 Dose: Not Given Documented by: Zinc Sulfate (Zinc Sulfate 220 Mg Cap) 220 mg PO DAILY [facility] Last Admin: 08/16/20 07:04 Dose: Not Given Documented by: Assessment/ Plan: Nephrology/ ICU Cardiopulmonary arrest on Saturday08-14-20. Limited IH/ ROS due to AMS. Case reviewed with nurse. Vitals, medications, blood work and imaging reviewed in the chart. Intubated. Not sedated. NAD. Pupils pinpoint. MMM. Neck supple. CTA. RRR. Soft Abd. No C/C. Hip edema1+. No rash. Unresponsive. Poor hearing. No Speech. Sacral ulcer A/P: Continue the current POC and Medications other than the changes listed. AM Labs PRN. Recommend daily weight. Please see the orders for complete details. ESRD -HD MWF -HD today. Hypokalemia/ Hyperkalemia HTN with CKD/ CHF complicated by hypotension -Hydralazine PRN -Give IV Albumin with HD -Levophed as needed A/C Diastolic CHF Anasarca -Low sodium diet -UF with HD as tolerated -DC IVF DM I with Polyneuropathy/ CKD -NPO Severe malnutriton with hypoalbuminemia -IV Albumin with HD -Consider TF Anemia in CKD -Continue Retacrit TAWNYA/ Secondary HyperPTH -Continue Vitamin D3 Stage 3 Sacral Pressure Ulcer Sacral ulcer with osteomyelitis -Wound care as ordered -Continue Vancomycin and Levaquin -Air mattress -Tylenol #3 as needed for pain. LLL PNA -Continue Vancomycin and Levaquin Toxic metabolic encephalopathy concerning for anoxic encephalopathy -EEG abnormal -Follow up with neurology Greater than 30min patient care.
--- NOTE | 2020-08-16 18:45 | CON ---
Reason For Consultation: Consultation called because the patient is unresponsive after cardiopulmona ry resuscitation. History Of Present Illness: Ms. Hightower is a 65-year-old right-handed patient with multipl e medical problems including hypertension; diabetes mellitus; end-stage renal disease, on hemodialysi s Saturday, Saturday, Saturday. She has a failed kidney transplant in addition to congestive heart fail ure, on home O2, who developed worsening shortness of breath after dialysis where 2.2 L was ruled out . This was on the 05 of August. She came into [facility] and was admitted for pulmonar y management in addition to her hemodialysis. In the hospital course, she was actually followed by Aleks Almodovar, who has been seeing her for sacral ulcer that was evaluated and determined to be osteomyeli tis, and she was making fair progress in terms of her recovery for her shortness of breath, managed b y the [facility]. However, on the 14 of August, she experienced severe bradycardia to the 30s and blood pressure significantly dropped as a code blue called at 1537 hours. She received 2 rounds of epinephrine, calcium bicarbonate, and was intubated at 1543 hours. She had a central line placed and received a bolus of 250 cc of normal saline. Following resuscitation, she has been poorly responsiv e to verbal and tactile stimulation. Her arterial blood gas after intubation, this was actually the following day, pH 7.55, pCO2 29.3, pO2 71.8. Her head CT scan was not done until the and that is 48 hours after resuscitation and it did not show any significant abnormalities. There was mild smal l-vessel ischemic disease. No loss of garcia-white junction demarcation. No evidence of cerebral rosalba a. No abnormalities seen. She had an EEG on the . This study was remarkable for a diffusely slo w background and it was moderately to severely slow and no epileptiform discharges were seen. A repe at EEG was done today, which showed very slow background with periodic biphasic frontal and central w aves consistent with a severe diffuse disturbance in cerebral activity and again consistent with a hy poxic ischemic injury after resuscitation. The patient's family were in the room and entered into a discussion regarding the prognosis, which is poor for good recovery. However, because the EEG did show electrical activity of cerebral origin, t hat did have some fast activity along with the periodic slow activity, she is likely to have a poor c yunior of good recovery and could remain in her current state for a prolonged period. The family woul d like to wait to determine if she could make a recovery, although the recovery seems very unlikely. They did note in the past that she has had episodes of unresponsiveness that perhaps lasted more yolanda n a week and then she returned to a fairly good function. That has influenced their decision to want to wait at this point for the patient to try and make a recovery on her own. Past Medical History: As indicated. In addition, hypothyroidism. 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 Allergies: PENICILLIN. Medications: At home, vitamin C 1000 mg daily, isosorbide 120 mg at bedtime, Synthroid 0.075 mg twic e daily, Pravachol 20 mg at bedtime, Coreg 25 mg twice a day, esomeprazole 40 mg daily, Cytomel 5 mcg twice daily, Judy-Karl 0.8 mg daily, collagenase applied topically to sacral wound, vitamin D 5000 u nits daily, calcitriol 0.5 mcg daily, epoetin 1000 units every hemodialysis, gabapentin 200 mg twice daily, heparin 3000 units every hemodialysis, Dilaudid 0.25 mg IV every 6 hours, mannitol 12.5 g ever y hemodialysis, meropenem 1 g daily, Nepro 237 mL twice daily, Renvela 800 mg 3 times daily with meal s, CoQ10 200 mg daily. Family History: Heart disease in father. Social History: No alcohol, tobacco, or IV drugs. The patient did drink caffeinated beverages. Review of Systems: Unable to perform as the patient is unresponsive and intubated. Physical Examination: General: Ms. Hightower is intubated with good air movement bilaterally. Abdomen: Soft. Extremities: No significant edema or cyanosis. Neurological: As noted, she is intubated. She does not respond to verbal stimulation. She does not move her eyes or open or close eyes to stimulation. She did, however, had very slight movement of t he upper eyelid on touching the forehead and did appear to wrinkle the forehead when given noxious st imulus. She does not have focal withdrawal of stimulation in the arms and legs, and does have normal tone. There was a weaning attempt made and the patient did not breathe over the vent during that pr ocess, and the machine was turned to 4 breaths per minute and she did not breathe over that. Assessment: Ms. Hightower is a 65-year-old patient with severe hypoxic ischemic encephalopathy followi ng a resuscitation effort. She has multiple medical problems including end-stage renal disease on he modialysis, diabetes mellitus, hypertension, and has an EEG consistent with a severe diffuse disturba nce in cerebral function. However, her head CT scan shows no significant abnormalities, no evidence of edema pattern 48 hours after resuscitation. The patient's family wants to maintain her in this st ate and "give her a chance to recover." It was communicated that she may remain in this state for qu ite a while as she is not breathing over the vent. If this is to continue, she would likely down the road require a tracheostomy and perhaps a PEG tube, and the patient's family seems to be heading ruddy n this road. This will be revisited in another [address] with repeat head CT scan and perhaps EEG to see if changes are significant in one direction or another. At this point, the patient will continue with supportive care. JASWANT/LANRE Voice ID: [id number] Report ID: [id number]
[2020-08-16] MEDS: VANCOMYCIN 500 MG in NA CHLORIDE 0.9% 100 ML IVPB SCH (19:54)
[2020-08-16] MEDS: NOREPINEPHRINE 4 MG in D5W 250 ML IV PRN (20:56)
[2020-08-16] MEDS ORDERED: ALBUMIN HUMAN 25% 50 ML IV ONE ×2 (21:00→21:40)
[2020-08-16] MEDS: ATORVASTATIN 10 MG TAB PO SCH (21:00)
[2020-08-16] MEDS ORDERED: NOREPINEPHRINE 4 MG/4 ML VIAL ONE (21:01)
[2020-08-16] MEDS ORDERED: D5W 250 ML IV ONE (21:01)
[2020-08-16] MEDS ORDERED: ALBUMIN HUMAN 25% 200 ML IV ONE (21:17)
[2020-08-16] MEDS: ALBUMIN HUMAN 25% 50 ML IV SCH ×3 (22:52→23:50)
[2020-08-16] MEDS ORDERED: ATORVASTATIN 20 MG TAB ONE (23:16)
[2020-08-17] MEDS: VANCOMYCIN 500 MG in NA CHLORIDE 0.9% 100 ML IVPB SCH (00:12)
[2020-08-17] MEDS: ALBUMIN HUMAN 25% 50 ML IV SCH ×2 (00:22→00:53)
[2020-08-17 05:04] LABS: Absolute Lymphocytes (CBC) 0.6 K/uL (0.7-4.9); Basophils % 0.3 % (0-1.3); Hematocrit 26.4 % (36.0-45.0); Lymphocytes % 9.6 % (15.3-44.8); MPV 8.6 fL (7.6-11.3)
[2020-08-17] MEDS: INSULIN -REGULAR HUMAN 50 UNIT/0.5 ML ML SQ SCH ×3 (05:35→18:00)
[2020-08-17] MEDS: VITAMIN B COMPLEX 1 CAP PO SCH (09:00)
[2020-08-17] MEDS: CALCIUM CARBONATE CHEW 500MG TAB PO SCH ×3 (09:00→21:00)
[2020-08-17] MEDS: DOCUSATE NA 100 MG CAP PO SCH ×2 (09:00→21:00)
[2020-08-17] MEDS: NEPRO SHAKE 237 ML CAN PO SCH ×2 (09:00→21:00)
[2020-08-17] MEDS: BIOTIN 5000 MCG PO SCH (09:00)
[2020-08-17] MEDS: CALCITROL 0.25 MCG CAP PO SCH (09:00)
[2020-08-17] MEDS: GUAIFENESIN 600 MG SA TAB PO SCH ×2 (09:00→21:00)
[2020-08-17] MEDS: ASPIRIN EC 81 MG TAB PO SCH (09:00)
[2020-08-17] MEDS: VITAMIN D 5,000 UNIT CAP PO SCH (09:00)
[2020-08-17] MEDS: HEPARIN 5000 UNIT/ML 1 ML VIAL SQ SCH ×2 (09:54→21:41)
[2020-08-17] MEDS: LACTOBACILLUS/ACIDOPHILUS TAB PO SCH ×2 (09:55→21:41)
[2020-08-17] MEDS: levoFLOXacin 250 MG TAB PO SCH (09:55)
[2020-08-17] MEDS: MULTIVITAMINS,THERAPEUT 1 TAB PO SCH (09:56)
[2020-08-17] MEDS: FAMOTIDINE 20 MG TAB PO SCH (09:57)
[2020-08-17] MEDS: CYANOCOBALAMIN 1,000 MCG TAB PO SCH (09:59)
[2020-08-17] MEDS: ASCORBIC ACID 500 MG TABLET PO SCH (10:00)
[2020-08-17] MEDS: ZINC SULFATE 220 MG CAP PO SCH (10:00)
[2020-08-17] MEDS ORDERED: ZINC SULFATE 220 MG CAP ONE (10:05)
[2020-08-17] MEDS ORDERED: HEPARIN 5000 UNIT/ML 1 ML VIAL ONE ×2 (10:05→21:51)
[2020-08-17] MEDS ORDERED: THIAMINE HCL 100 MG TABLET ONE (10:05)
[2020-08-17] MEDS ORDERED: levoFLOXacin 250 MG TAB ONE (10:06)
[2020-08-17] MEDS ORDERED: FAMOTIDINE 20 MG TAB ONE (10:06)
[2020-08-17] MEDS ORDERED: ASCORBIC ACID 500 MG TABLET ONE (10:06)
[2020-08-17] MEDS ORDERED: ASPIRIN EC 81 MG TAB PO ONE (10:06)
--- NOTE | 2020-08-17 10:07 | EEG ---
CHART: [id number] TEST ID#: [id number] DATE OF STUDY: 08/16/2020 THE EEG WAS RECORDED PORTABLE IN THE ER-ICU ROOM TWELVE ON A 14 CHANNEL MACHINE. ELECTRODES WERE APPLIED IN THE USUAL MANNER USING THE INTERNATIONAL 10-20 SYSTEM. THE EEG CONSISTS OF CONTINUOUS 1 TO 1.5 SECOND TRIPHASIC AND DIPHASIC WAVES EXPRESSED IN THE FRONTAL AND CENTRAL REGIONS. LOW VOLTAGE 15-18 HZ ACTIVITY IS DIFFSELY EXPRESSEED. THERE ARE NO FOCAL OR LATERALIZING FEATURES. NO EPILEPTIFORM ACTIVITY APPEARS. SLEEP DID NOT OCCUR. HYPERVENTILATION WAS NOT PERFORMED. PHOTIC STIMULATION WAS NOT PERFORMED. IMPRESSION: THIS IS A SEVERELY ABNORMAL EEG DUE TO A SEVERELY SLOW BACKGROUND. THIS FINDING IS CONSISTENT WITH A SEVERE DIFFUSE DISTURBANCE IN CEREBRAL FUNCTION. THE DIFFERENTIAL DIAGONOSIS INCLUDES HYPOXIC-ISCHEMIC INJURY, SEVERE METABOLIC DISTURBANCES OR TOXIX ETIOLOGIES.
--- NOTE | 2020-08-17 11:16 | P.PN ---
Subjective Date of Service: 08/17/20 Chief Complaint: cardiopulmonary arrest Patient seen and examined here holding. Repeat EEG showed some wave activity with severe diffuse disturbance in cerebral function. ID standpoint-patient is doing ok. Doing well on antibiosis no leukocytosis or fever. Continue to monitor closely. Review of Systems 10-point ROS is otherwise unremarkable Physical Examination - Vital Signs Temperature: 97.6 F Blood Pressure: 127/59 Pulse: 74 Respirations: 16 Pulse Ox (%): 100 - Physical Exam Other Physical/Emotional Findings: General: on Vent, Other. HEENT: Atraumatic, Normocephalic. Neck: Supple, 2+ carotid pulse no bruit. Respiratory: Patient is intubated, equal breah sounds bilaterally. Cardiovascular: Regular rate/rhythm, Normal S1 S2. Capillary refill: <2 Seconds. Gastrointestinal: Normal bowel sounds, Soft and benign. Musculoskeletal: Other (Bilateral lower extremitie wounds-dressed and wrapped with Wayne wraps). Integumentary: right buttock stage 3 pressure wound:5x3cm, majority slough tissue present, periwound tissue shows purple/red discoloration. Sacral pressure wound stage 4: 2.5x1x1 cm. tunnling at 1 oclock position measuring 3.2 cm. Base of wound shows granulation tissue-minimal drainage. sacrococcyx stage 1: redness noted around area, surrounding stage 4 sacral wound. . Lymphatics: No axilla or inguinal lymphadenopathy. - Studies Laboratory Last Values WBC 6.20 K/uL (4.3-10.9) 08/07/20 04:17 RBC 3.04 M/uL (3.86-4.86) L 08/07/20 04:17 Hgb 9.5 g/dL (12.0-15.0) L 08/07/20 04:17 Hct 30.4 % (36.0-45.0) L 08/07/20 04:17 MCV 100.3 fL (80-100) H 08/07/20 04:17 MCH 31.2 pg (27.0-35.0) 08/07/20 04:17 MCHC 31.1 g/dL (32.0-36.0) L 08/07/20 04:17 RDW 18.9 % (12.1-15.2) H 08/07/20 04:17 Plt Count 233 K/uL (152-406) 08/07/20 04:17 MPV 8.0 fL (7.6-11.3) 08/07/20 04:17 Neutrophils % 77.6 % (41.7-73.7) H 08/07/20 04:17 Lymphocytes % 10.4 % (15.3-44.8) L 08/07/20 04:17 Monocytes % 8.9 % (3.3-12.3) 08/07/20 04:17 Eosinophils % 1.9 % (0-4.4) 08/07/20 04:17 Basophils % 1.2 % (0-1.3) 08/07/20 04:17 Absolute Neutrophils 4.8 K/uL (1.8-8.0) 08/07/20 04:17 Absolute Lymphocytes 0.6 K/uL (0.7-4.9) L 08/07/20 04:17 Absolute Monocytes 0.5 K/uL (0.1-1.3) 08/07/20 04:17 Absolute Eosinophils 0.1 K/uL (0-0.5) 08/07/20 04:17 Absolute Basophils 0.1 K/uL (0-0.5) 08/07/20 04:17 PT 15.3 SECONDS (9.5-12.5) H 08/05/20 23:57 INR 1.33 08/05/20 23:57 Sodium 140 mmol/L (136-145) 08/07/20 04:17 Potassium 4.1 mmol/L (3.5-5.1) 08/07/20 04:17 Chloride 106 mmol/L (98-107) 08/07/20 04:17 Carbon Dioxide 25 mmol/L (21-32) 08/07/20 04:17 BUN 31 mg/dL (7-18) H 08/07/20 04:17 Creatinine 3.20 mg/dL (0.55-1.3) H 08/07/20 04:17 Estimated GFR 14 mL/min (=/>90) L 08/07/20 04:17 Glucose 230 mg/dL (74-106) H 08/07/20 04:17 POC Glucose 286 mg/dL (65-120) H 08/07/20 11:08 Calcium 9.0 mg/dL (8.5-10.1) 08/07/20 04:17 Magnesium 2.1 mg/dL (1.8-2.4) 08/05/20 23:57 Total Bilirubin 0.7 mg/dL (0.2-1.0) 08/07/20 04:17 Direct Bilirubin 0.2 mg/dL (0-0.2) 08/05/20 23:57 AST 15 U/L (15-37) 08/07/20 04:17 ALT < 6 U/L (12-78) L 08/07/20 04:17 Alkaline Phosphatase 177 U/L (45-117) H 08/07/20 04:17 Rapid Troponin I 0.02 ng/mL (0.0-0.045) 08/05/20 23:57 Troponin I < 0.02 ng/mL (0.0-0.045) 08/06/20 08:50 NT-Pro-B Natriuret Pep 57158 pg/mL (<125) H 08/05/20 23:57 Serum Total Protein 6.0 g/dL (6.4-8.2) L 08/07/20 04:17 Albumin 1.9 g/dL (3.4-5.0) L 08/07/20 04:17 Globulin 4.1 g/dL (2.3-3.5) H 08/07/20 04:17 Albumin/Globulin Ratio 0.5 (1.1-1.8) L 08/07/20 04:17 SARS-CoV-2 RNA (RT-PCR) Negative (NEGATIVE) 08/06/20 03:48 Assessment And Plan - Plan Antibiotics: levaqin start: 08/15 stop: --pulmonology ordered/following. indication: pneumonia Vancomycin start: 08/07 stop: 09/18 indication: pelvic osteomyelitis Assessment: -pneumonia -stage IV sacral ulcer w osteomyelitis -stage III right buttocks ulcer -DTI to sacrococcyx area -ESRD on HD -diabetes type 2 -anemia plan: -pneumonia: Pulmonology following. Changed secondary to Levaquin -stage IV sacral ulcer w osteomyelitis: CT pelvis confirmed osteomyelitis- continue vancomycin for 6 weeks from start stage. Start: 08/07 Stop: 09/18. continue wound vac at this time. -continue probiotic for duration of antibiotic therapy as patient is on two broad spectrum antibiotics. -stage III right buttocks ulcer: apply santyl and cover with foam qMWF -sacrococcyx stage 1: apply barrier cream to area and continue to offload -offload all pressure wounds and avoid direct pressure-air mattress in place -medical management per primary team -continue monitor CBC and BMP-no leukocytosis at this time -continue to monitor percent infection Plan of care discussed with Dr. Celis. Thank you for consultation. Physician Review: Patient Assessed, Agree with Above Assessment and Plan
--- NOTE | 2020-08-17 13:12 | P.PN ---
Subjective Date of Service: 08/17/20 Chief Complaint: cardiopulmonary arrest Patient intubated, unresponsive, not on sedation. Currently NPO. Blood pressure is stable. Not on pressors. Patient developed hypotension during hemodialysis yesterday. She was given 150 ml of albumin infusion and was on Levophed briefly. She is currently normotensive. Physical Examination - Vital Signs Temperature: 97.6 F Blood Pressure: 127/59 Pulse: 74 Respirations: 16 Pulse Ox (%): 100 - Physical Exam General: Unresponsive, Other Respiratory: Other (Upper airway transmitted sounds) Cardiovascular: Regular rate/rhythm, Normal S1 S2, Edema (Bilateral lower extremities and upper extremities) Gastrointestinal: Soft and benign, Non-distended Integumentary: Other (Bilateral lower extremity venous stasis dermatitis with wheezing) Neurological: Other (Unresponsive, no limb movement.) Other Physical/Emotional Findings: General: on Vent, Other. HEENT: Atraumatic, Normocephalic. Neck: Supple, 2+ carotid pulse no bruit. Respiratory: Patient is intubated, equal breah sounds bilaterally. Cardiovascular: Regular rate/rhythm, Normal S1 S2. Capillary refill: <2 Seconds. Gastrointestinal: Normal bowel sounds, Soft and benign. Musculoskeletal: Other (Bilateral lower extremitie wounds-dressed and wrapped with Wayne wraps). Integumentary: right buttock stage 3 pressure wound:5x3cm, majority slough tissue present, periwound tissue shows purple/red discoloration. Sacral pressure wound stage 4: 2.5x1x1 cm. tunnling at 1 oclock position measuring 3.2 cm. Base of wound shows g ranulation tissue-minimal drainage. sacrococcyx stage 1: redness noted around area, surrounding stage 4 sacral wound. . Lymphatics: No axilla or inguinal lymphadenopathy. Assessment And Plan - Current Problems (Diagnosis) (1) Volume overload Current Visit: Yes Status: Acute (2) ESRD (end stage renal disease) on dialysis Onset Date: 06/17/17 Current Visit: No Status: Chronic (3) Pressure ulcer of sacral region, stage 3 Current Visit: No Status: Chronic (4) Right ischial pressure sore, stage 3 Current Visit: No Status: Chronic (5) Type 1 diabetes mellitus on insulin therapy Onset Date: 06/27/18 Current Visit: No Status: Chronic (6) Pneumonia Current Visit: Yes Status: Acute (7) Anemia in chronic kidney disease Current Visit: Yes Status: Acute (8) Anoxic encephalopathy Current Visit: Yes Status: Acute (9) Cardiopulmonary arrest Current Visit: Yes Status: Acute Physician Review Additional Text: Physical Exam General: intubated, unresponsive HEENT: ETT and OG tube in place Pulm: ventilated, diminished at bases bilaterally L>R Cardiovascular: Regular rate/rhythm, 1+ b/l edema noted in posterior thighs. Lower extremities wrapped in WAYNE Gastrointestinal: soft, nontender / nondistended Integumentary: sacral ulcer with wound vac in place Problem List Acute hypoxia secondary to volume overload and left lower lobe pneumonia ESRD with Volume overload ESRD (end stage renal disease) on dialysis Pressure ulcer of sacral region, stage 4 Right ischial pressure sore, stage 3 Type 1 diabetes mellitus on insulin pump at home Anemia in chronic kidney disease. Cardiac arrest code blue and intubated on 08/14 EEG x 2 - slow waves, severely abnormal, Dr. Norwood recommended repeat EEG tomorrow, CT brain: No acute changes. Repeat CT head tomorrow. Neurology. No spontaneous breathing movement. Anoxic encephalopathy with poor prognosis. Prognosis is even much worse given the presence of infection and need for hemodialysis. Very low likelihood of meaningful recovery. Neurology repeating examination tomorrow. Echocardiogram: Diastolic dysfunction, normal LV EF: 73%, LV hypertrophy. Pro calcitonin elevated. CT pelvis, still with signs of sacral osteomyelitis ID following. recommended meropenem changed to clinda PO and then vancomycin. Patient will need need 6 weeks of vancomycin for osteomyelitis (to continue with dialysis) Dr. Almodovar consulted for sacral ulcer - agrees with Wound vac. She is on Levaquin and vancomycin. Placement - community mental health social worker consulted for home wound vac machine Blood culture with no growth so far Hemodialysis per nephrology. Dispo: poor prognosis. Patient is DNR.
[2020-08-17] MEDS: EPOETIN ALFA-EPBX 4,000 UNIT/ML VIAL SQ SCH (13:17)
--- NOTE | 2020-08-17 13:25 | PN ---
Date of Progress Note: 08/17/2020 Subjective: The patient was seen and examined at bedside. She continues to be nonresponsive. Physical Examination: Vital Signs: Have been stable. She had dialysis yesterday. She is now off pressors at this time. She has beeping from her upper extremity IV site and generalized anasarca noted. She is intubated. HEENT: Atraumatic head. Lungs: Clear to auscultation anteriorly. Extremities: Showed no evidence of edema in lower extremities. Laboratory Data: Showing creatinine of 1.65, BUN of 20 and other electrolytes are stable. She is ge tting Retacrit and her hemoglobin is 8.3. Current Medications: Have been reviewed in detail. Impression: 1.End-stage renal disease, on dialysis. 2.Cardiopulmonary events, concern for anoxic brain injury. 3.Hypotension, improving. 4.Anemia secondary to chronic kidney disease. 5.Sacral ulcer. 6.Malnutrition. Plan: Overall, the patient's condition is very guarded. The family is awaiting neurological recover y. At this point, we are continuing to assess her for neurological recovery and monitor her closely. We will plan for dialysis tomorrow and in the meanwhile, we will continue to monitor the labs closely. VV/MODL Voice ID: [id number] Report ID: [id number]
[2020-08-17] MEDS ORDERED: INSULIN -REGULAR HUMAN 50 UNIT/0.5 ML ML ONE (13:29)
[2020-08-17] MEDS: SODIUM HYPOCHLORITE 0.25% 473 ML TOP SCH (16:00)
[2020-08-17] MEDS: COLLAGENASE 30 GM OINTMENT TOP SCH (16:00)
[2020-08-17] MEDS: ATORVASTATIN 10 MG TAB PO SCH (21:40)
--- NOTE | 2020-08-18 05:19 | EKG ---
Test Date: 2020-08-14 Test Time: 15:58:04 Api Product Manager: IVETH MEASUREMENT RESULTS: Intervals: Rate: 142 MN: QRSD: 86 QT: 288 QTc: 443 Butler: P: MN: QRS: -63 T: 110 INTERPRETIVE STATEMENTS: Atrial fibrillation with rapid ventricular response Left axis deviation Anterior infarct, age undetermined Abnormal ECG Compared to ECG 08/05/2020 22:40:19 Left-axis deviation now present Accelerated junctional rhythm no longer present Left anterior fascicular block no longer present Myocardial infarct finding still present Electronically Signed On 08-18-20 05:12:11 [employer] CLERK by Jerry Olea
[2020-08-18] MEDS: INSULIN -REGULAR HUMAN 50 UNIT/0.5 ML ML SQ SCH ×4 (05:36→17:01)
--- NOTE | 2020-08-18 07:10 | RAD REPORT ---
EXAM DESCRIPTION: CT - Head Brain Wo Cont - 08/18/2020 5:39 am CLINICAL HISTORY: AMS COMPARISON: Brain Wo Cont dated 08/16/2020 TECHNIQUE: Axial 5 mm thick images of the head were obtained without IV contrast. All CT scans are performed using dose optimization technique as appropriate and may include automated exposure control or mA/KV adjustment according to patient size. FINDINGS: No intracranial hemorrhage, mass, edema or shift of mid-line structures. No acute cortical based infarction identified. No cortical edema or sulcal effacement seen. Patient has advanced for a ge atrophy and chronic ischemic change. Ventricles are in proportion to the amount of volume loss. No abnormal extra-axial fluid collections. Arterial tree calcifications are present. Intracranial findi ngs are similar to comparison. Mastoid air cells are fully opacified. This is not uncommon in an intubated patient. Mucosal thickeni ng and air-fluid level seen in the right maxillary sinus. No acute bony findings. IMPRESSION: No hemorrhage, edema or acute intracranial finding. Advanced for a atrophy and chronic ischemic changes similar to comparison.
[2020-08-18] MEDS: FAMOTIDINE 20 MG TAB PO SCH (08:22)
[2020-08-18] MEDS: ASPIRIN EC 81 MG TAB PO SCH (08:22)
[2020-08-18] MEDS: levoFLOXacin 250 MG TAB PO SCH (08:23)
[2020-08-18] MEDS: CYANOCOBALAMIN 1,000 MCG TAB PO SCH (08:23)
[2020-08-18] MEDS: GUAIFENESIN 600 MG SA TAB PO SCH ×2 (08:23→20:38)
[2020-08-18] MEDS: ZINC SULFATE 220 MG CAP PO SCH (08:23)
[2020-08-18] MEDS: CALCITROL 0.25 MCG CAP PO SCH (08:24)
[2020-08-18] MEDS: MULTIVITAMINS,THERAPEUT 1 TAB PO SCH (08:24)
[2020-08-18] MEDS: VITAMIN D 5,000 UNIT CAP PO SCH ×2 (08:24→09:00)
[2020-08-18] MEDS: VITAMIN B COMPLEX 1 CAP PO SCH ×2 (08:24→09:00)
[2020-08-18] MEDS: LEVOTHYROXINE SOD 0.075 MG TAB PO SCH (08:24)
[2020-08-18] MEDS: LACTOBACILLUS/ACIDOPHILUS TAB PO SCH ×2 (08:24→20:37)
[2020-08-18] MEDS: NEPRO SHAKE 237 ML CAN PO SCH ×2 (08:25→22:06)
[2020-08-18] MEDS: CALCIUM CARBONATE CHEW 500MG TAB PO SCH ×3 (08:25→20:38)
[2020-08-18] MEDS: DOCUSATE NA 100 MG CAP PO SCH ×2 (08:25→20:33)
[2020-08-18] MEDS: HEPARIN 5000 UNIT/ML 1 ML VIAL SQ SCH ×3 (08:25→19:58)
[2020-08-18] MEDS: BIOTIN 5000 MCG PO SCH (08:25)
[2020-08-18] MEDS ORDERED: HEPARIN 5000 UNIT/ML 1 ML VIAL ONE (08:32)
[2020-08-18] MEDS ORDERED: VITAMIN D 1000 UNIT TAB ONE (08:34)
[2020-08-18] MEDS ORDERED: FAMOTIDINE 20 MG TAB ONE (08:34)
[2020-08-18] MEDS ORDERED: ZINC SULFATE 220 MG CAP ONE (08:34)
[2020-08-18] MEDS ORDERED: levoFLOXacin 250 MG TAB ONE (08:34)
[2020-08-18] MEDS: COLLAGENASE 30 GM OINTMENT TOP SCH (08:56)
[2020-08-18] MEDS: ASCORBIC ACID 500 MG TABLET PO SCH (09:00)
--- NOTE | 2020-08-18 14:15 | P.PN ---
Subjective Date of Service: 08/18/20 Chief Complaint: cardiopulmonary arrest Patient seen and examined here holding. Repeat EEG performed today. Review of Systems 10-point ROS is otherwise unremarkable Physical Examination - Vital Signs Temperature: 96.5 F Blood Pressure: 98/47 Pulse: 59 Respirations: 16 Pulse Ox (%): 100 - Physical Exam Other Physical/Emotional Findings: General: on Vent, Other. HEENT: Atraumatic, Normocephalic. Neck: Supple, 2+ carotid pulse no bruit. Respiratory: Patient is intubated, equal breah sounds bilaterally. Cardiovascular: Regular rate/rhythm, Normal S1 S2. Capillary refill: <2 Seconds. Gastrointestinal: Normal bowel sounds, Soft and benign. Musculoskeletal: Other (Bilateral lower extremitie wounds-dressed and wrapped with Wayne wraps). Integumentary: right buttock stage 3 pressure wound:5x3cm, majority slough tissue present, periwound tissue shows purple/red discoloration. Sacral pressure wound stage 4: 2.5x1x1 cm. tunnling at 1 oclock position measuring 3.2 cm. Base of wound shows granulation tissue-minimal drainage. sacrococcyx stage 1: redness noted around area, surrounding stage 4 sacral wound. . Lymphatics: No axilla or inguinal lymphadenopathy. - Studies Wound Type [Left Anterior Open Wound Lateral Distal Leg] Wound Type [Left Anterior Open Wound Lateral Distal Leg] Wound Type [Left Anterior Open Wound Lateral Distal Leg] Wound Type [Right Lower Distal Open Wound Leg] Wound Type [Right Lower Distal Open Wound Leg] Wound Type [Right Lower Distal Open Wound Leg] Wound Type [Right] Pressure Ulcer Wound Type [Right] Pressure Ulcer Wound Type [Right] Pressure Ulcer Wound Type [Right] Pressure Ulcer Wound Type [Posterior Sacrum] Pressure Ulcer Wound Type [Posterior Sacrum] Pressure Ulcer Wound Type [Posterior Sacrum] Pressure Ulcer Wound Type [Posterior Sacrum] Pressure Ulcer Wound Description [Right] Full Thickness Wound Description [Posterior Partial Thickness Sacrum] Closed Surgical Incision No Present Closed Surgical Incision No Present Closed Surgical Incision No Present Closed Surgical Incision No Present Pressure Ulcer Present on Yes Admission [Right] Pressure Ulcer Present on Yes Admission [Posterior Sacrum] Pressure Ulcer Stage [Right] Stage 3 Pressure Ulcer Stage [Right] Stage 3 Pressure Ulcer Stage [Right] Stage 3 Pressure Ulcer Stage [Right] Stage 3 Pressure Ulcer Stage [ Stage 3 Posterior Sacrum] Pressure Ulcer Stage [ Stage 3 Posterior Sacrum] Pressure Ulcer Stage [ Stage 3 Posterior Sacrum] Pressure Ulcer Stage [ Stage 3 Posterior Sacrum] Assessment And Plan - Plan Antibiotics: levaqin start: 08/15 stop: --pulmonology ordered/following. indication: pneumonia Vancomycin start: 08/07 stop: 09/18 indication: pelvic osteomyelitis Assessment: -pneumonia -stage IV sacral ulcer w osteomyelitis -stage III right buttocks ulcer -DTI to sacrococcyx area -ESRD on HD -diabetes type 2 -anemia plan: -pneumonia: Pulmonology following. Changed secondary to Levaquin -stage IV sacral ulcer w osteomyelitis: CT pelvis confirmed osteomyelitis- continue vancomycin for 6 weeks from start stage. Start: 08/07 Stop: 09/18. continue wound vac at this time. -continue probiotic for duration of antibiotic therapy as patient is on two broad spectrum antibiotics. -stage III right buttocks ulcer: apply santyl and cover with foam qMWF -sacrococcyx stage 1: apply barrier cream to area and continue to offload -offload all pressure wounds and avoid direct pressure-air mattress in place -medical management per primary team -continue monitor CBC and BMP-no leukocytosis at this time -continue to monitor percent infection Plan of care discussed with Dr. Celis. Thank you for consultation. Physician Review: Patient Assessed, Agree with Above Assessment and Plan
[2020-08-18] MEDS: SODIUM HYPOCHLORITE 0.25% 473 ML TOP SCH (16:20)
--- NOTE | 2020-08-18 17:10 | P.PN ---
Date of Service: 08/18/20 Vital Signs Temp Pulse Resp BP Pulse Ox 96.4 F L 68 16 84/46 L 100 08/18/20 16:00 08/18/20 16:00 08/18/20 16:00 08/18/20 16:00 08/18/20 16:00 Medications Acetaminophen/Codeine Phosphate (Codeine 30mg/Apap 300mg Tab) 2 tab PO Q6H PRN PRN Reason: Pain scale 5-7 (Moderate) Last Admin: 08/14/20 11:41 Dose: 2 tab Documented by: Albuterol Sulfate (Albuterol 2.5 Mg/3 Ml Neb Lavern) 2.5 mg NEB Q3HP PRN PRN Reason: SHORTNESS OF BREATH Ascorbic Acid (Ascorbic Acid 500 Mg Tablet) 1,000 mg PO DAILY [facility] Last Admin: 08/18/20 09:00 Dose: Not Given Documented by: Aspirin (Aspirin Ec 81 Mg Tab) 81 mg PO DAILY [facility] Last Admin: 08/18/20 08:22 Dose: Not Given Documented by: Atorvastatin Calcium (Atorvastatin 10 Mg Tab) 10 mg PO BEDTIME [facility] Last Admin: 08/17/20 21:40 Dose: 10 mg Documented by: Calcitriol (Calcitrol 0.25 Mcg Cap) 0.5 mcg PO DAILY [facility] Last Admin: 08/18/20 08:24 Dose: Not Given Documented by: Calcium Carbonate/Glycine (Calcium Carbonate Chew 500mg Tab) 1,000 mg PO TID [facility] Last Admin: 08/18/20 14:00 Dose: Not Given Documented by: Cholecalciferol (Vitamin D 5,000 Unit Cap) 5,000 unit PO DAILY [facility] Last Admin: 08/18/20 09:00 Dose: Not Given Documented by: Collagenase (Collagenase 30 Gm Ointment) 1 appl TOP MoWeFr@0900 [facility] Last Admin: 08/17/20 16:00 Dose: 1 joby Documented by: Cyanocobalamin (Cyanocobalamin 1,000 Mcg Tab) 1,000 mcg PO DAILY [facility] Last Admin: 08/18/20 08:23 Dose: 1,000 mcg Documented by: Dextrose (D50w 25 Gm/50 Ml Vial) 12.5 gm IV PRN PRN; Protocol PRN Reason: HYPOGLYCEMIA Last Admin: 08/13/20 23:01 Dose: 12.5 gm Documented by: Docusate Sodium (Docusate Na 100 Mg Cap) 100 mg PO BID [facility] Last Admin: 08/18/20 08:25 Dose: Not Given Documented by: Enteral Nutritional Formula (Nepro Shake 237 Ml Can) 237 ml PO BID [facility] Last Admin: 08/18/20 08:25 Dose: Not Given Documented by: Famotidine (Famotidine 20 Mg Tab) 20 mg PO DAILY [facility]; Protocol Last Admin: 08/18/20 08:22 Dose: 20 mg Documented by: Glucagon (Glucagon 1 Mg/Vial) 1 mg IM 1X PRN; Protocol PRN Reason: HYPOGLYCEMIA Guaifenesin (Guaifenesin 600 Mg Sa Tab) 1,200 mg PO BID [facility] Last Admin: 08/18/20 08:23 Dose: 1,200 mg Documented by: Heparin Sodium (Porcine) (Heparin 5000 Unit/Ml 1 Ml Vial) 5,000 unit SQ Q12HR [facility] Last Admin: 08/18/20 09:00 Dose: Not Given Documented by: Heparin Sodium (Porcine) (Heparin 1,000 Unit/Ml Vial) 2,000 unit IV EVERY HD PRN PRN Reason: dialysis Last Admin: 08/16/20 20:25 Dose: 2,000 unit Documented by: Home Med (Biotin [Biotin]) 1 cap PO DAILY [facility] Last Admin: 08/18/20 08:25 Dose: Not Given Documented by: Hydralazine HCl (Hydralazine Hcl 20 Mg/Ml Vial) 10 mg IV Q6HP PRN PRN Reason: Titrate to SBP (MUST DEFINE) Vancomycin HCl 500 mg/ Sodium (Chloride) 100 mls @ 100 mls/hr IVPB AFTER EACH DIALYSIS [facility] Last Admin: 08/17/20 00:12 Dose: 100 mls Documented by: Norepinephrine Bitartrate 4 mg (/ Dextrose) 254 mls @ 0 mls/hr IV PRN PRN; Protocol PRN Reason: Hemodynamic Parameters Last Admin: 08/16/20 20:56 Dose: 254 mls Documented by: Albumin Human (Albumin 25% 25 Gm) 100 mls @ 0 mls/hr IV UD [facility] Insulin Human Regular (Insulin -Regular Human 50 Unit/0.5 Ml Ml) 0 unit SQ Q6HR [facility]; Protocol Last Admin: 08/18/20 12:00 Dose: Not Given Documented by: Lactobacillus Acidoph/Bulgaricus (Lactobacillus/Acidophilus Tab) 1 tab PO BID [facility] Last Admin: 08/18/20 08:24 Dose: 1 tab Documented by: Levofloxacin (Levofloxacin 250 Mg Tab) 250 mg PO DAILY [facility]; Protocol Last Admin: 08/18/20 08:23 Dose: 250 mg Documented by: Levothyroxine Sodium (Levothyroxine Sod 0.075 Mg Tab) 0.15 mg PO DAILY [facility] Last Admin: 08/18/20 08:24 Dose: 0.15 mg Documented by: Ondansetron HCl (Ondansetron 4 Mg/2 Ml Vial) 4 mg IV Q8H PRN PRN Reason: NAUSEA / VOMITING Last Admin: 08/13/20 23:01 Dose: 4 mg Documented by: Sodium Chloride (Flush Normal Saline 10 Ml) 10 ml IV BID [facility] Last Admin: 08/18/20 08:24 Dose: 10 ml Documented by: Sodium Hypochlorite (Sodium Hypochlorite 0.25% 473 Ml) 1 appl TOP DAILY [facility] Last Admin: 08/18/20 16:20 Dose: 1 appl Documented by: Vitamin B Complex (Vitamin B Complex 1 Cap) 1 cap PO DAILY [facility] Last Admin: 08/18/20 09:00 Dose: Not Given Documented by: Vitamin B Complex/Vit C/Folic Acid (Multivitamins,Therapeut 1 Tab) 1 tab PO DAILY [facility] Last Admin: 08/18/20 08:24 Dose: 1 tab Documented by: Zinc Sulfate (Zinc Sulfate 220 Mg Cap) 220 mg PO DAILY [facility] Last Admin: 08/18/20 08:23 Dose: 220 mg Documented by: Assessment/ Plan: Nephrology/ ICU Cardiopulmonary arrest on Saturday08-14-20. Limited IH/ ROS due to AMS. Case reviewed with nurse and at the bedside. Vitals, medications, blood work and imaging reviewed in the chart. Intubated. Not sedated. NAD. MMM. Neck supple. CTA. RRR. Soft Abd. No C/C. Hip edema1+. No rash. No Speech. Sacral ulcer. Eyes slightly open due to pain. No purposeful movements. A/ P: Continue the current POC and Medications other than the changes listed. AM Labs PRN. Recommend daily weight. Please see the orders for complete details. ESRD -Will arrange HD as needed -No acute HD at this time Hypokalemia/ Hyperkalemia HTN with CKD/ CHF complicated by hypotension -Hydralazine PRN -Give IV Albumin with HD as needed for hypotension -Levophed as needed A/C Diastolic CHF Anasarca -Low sodium diet -UF with HD as tolerated DM I with Polyneuropathy/ CKD -NPO Severe malnutriton with hypoalbuminemia -IV Albumin with HD -Consider Tube feeding Anemia in CKD -Continue Retacrit -Transfuse PRBC as needed TAWNYA/ Secondary HyperPTH -Continue Vitamin D3 Stage 3 Sacral Pressure Ulcer Sacral ulcer with osteomyelitis -Wound care as ordered -Continue Vancomycin and Levaquin -Air mattress -Tylenol #3 as needed for pain. LLL PNA -Continue Vancomycin and Levaquin Toxic metabolic encephalopathy concerning for anoxic encephalopathy -EEG abnormal -Follow up with neurology Greater than 30min patient care. I had a long discussion with the regarding prognosis.
--- NOTE | 2020-08-18 18:20 | P.PN ---
Subjective Date of Service: 08/18/20 Chief Complaint: cardiopulmonary arrest Patient intubated, unresponsive, not on sedation. No major changes from yesterday Blood pressure is reading low today. Physical Examination - Vital Signs Temperature: 96.4 F Blood Pressure: 84/46 Pulse: 68 Respirations: 16 Pulse Ox (%): 100 - Physical Exam General: Unresponsive Respiratory: Other (Bilateral upper airway transmitted sounds.) Cardiovascular: Regular rate/rhythm, Normal S1 S2, Edema (Bilateral lower extremities) Gastrointestinal: Soft and benign, Non-distended Musculoskeletal: No swelling Integumentary: Other (Bilateral lower extremity venous stasis dermatitis) Neurological: Other (Unresponsive, no limb movement.) Other Physical/Emotional Findings: General: on Vent, Other. HEENT: Atraumatic, Normocephalic. Neck: Supple, 2+ carotid pulse no bruit. Respiratory: Patient is intubated, equal breah sounds bilaterally. Cardiovascular: Regular rate/rhythm, Normal S1 S2. Capillary refill: <2 Seconds. Gastrointestinal: Normal bowel sounds, Soft and benign. Musculoskeletal: Other (Bilateral lower extremitie wounds-dressed and wrapped with Wayne wraps). Integumentary: right buttock stage 3 pressure wound:5x3cm, majority slough tissue present, periwound tissue shows purple/red discoloration. Sacral pressure wound stage 4: 2.5x1x1 cm. tunnling at 1 oclock position measuring 3.2 cm. Base of wound shows granulation tissue-minimal drainage. sacrococcyx stage 1: redness noted around area, surrounding stage 4 sacral wound. . Lymphatics: No axilla or inguinal lymphadenopathy. Assessment And Plan - Current Problems (Diagnosis) (1) Volume overload Current Visit: Yes Status: Acute (2) ESRD (end stage renal disease) on dialysis Onset Date: 06/17/17 Current Visit: No Status: Chronic (3) Pressure ulcer of sacral region, stage 3 Current Visit: No Status: Chronic (4) Right ischial pressure sore, stage 3 Current Visit: No Status: Chronic (5) Type 1 diabetes mellitus on insulin therapy Onset Date: 06/27/18 Current Visit: No Status: Chronic (6) Pneumonia Current Visit: Yes Status: Acute (7) Anemia in chronic kidney disease Current Visit: Yes Status: Acute (8) Anoxic encephalopathy Current Visit: Yes Status: Acute (9) Cardiopulmonary arrest Current Visit: Yes Status: Acute Physician Review: Patient Assessed, Agree with Above Assessment and Plan Physician Review Additional Text: Physical Exam General: intubated, unresponsive HEENT: ETT and OG tube in place Pulm: ventilated, diminished at bases bilaterally L>R Cardiovascular: Regular rate/rhythm, 1+ b/l edema noted in posterior thighs. Lower extremities wrapped in WAYNE Gastrointestinal: soft, nontender / nondistended Integumentary: sacral ulcer with wound vac in place Problem List Acute hypoxia secondary to volume overload and left lower lobe pneumonia ESRD with Volume overload ESRD (end stage renal disease) on dialysis Pressure ulcer of sacral region, stage 4 Right ischial pressure sore, stage 3 Type 1 diabetes mellitus on insulin pump at home Anemia in chronic kidney disease. Cardiac arrest code blue and intubated on 08/14 EEG x 2 - slow waves, severely abnormal, Dr. Norwood recommended repeat EEG tomorrow, CT brain: No acute changes. Repeat CT head tomorrow. Neurology. No spontaneous breathing movement. Anoxic encephalopathy with poor prognosis. Prognosis is even much worse given the presence of infection and need for hemodialysis. Very low likelihood of meaningful recovery. Neurology to meet with family today to discuss prognosis. No escalation of care per family. No vasopressors per family. Echocardiogram: Diastolic dysfunction, normal LV EF: 73%, LV hypertrophy. Pro calcitonin elevated. CT pelvis, still with signs of sacral osteomyelitis ID following. recommended meropenem changed to clinda PO and then vancomycin. Continue Wound vac. Continue antibiotics. ID is following. Blood culture with no growth so far Hemodialysis per nephrology. Dispo: poor prognosis. Patient is DNR.
[2020-08-18] MEDS: ATORVASTATIN 10 MG TAB PO SCH (20:37)
[2020-08-19] MEDS: INSULIN -REGULAR HUMAN 50 UNIT/0.5 ML ML SQ SCH ×3 (00:14→12:00)
[2020-08-19] MEDS ORDERED: INSULIN -REGULAR HUMAN 50 UNIT/0.5 ML ML ONE ×2 (00:29→06:19)
[2020-08-19 06:25] LABS: Absolute Lymphocytes (CBC) 0.4 K/uL (0.7-4.9); Basophils % 0.1 % (0-1.3); Hematocrit 31.1 % (36.0-45.0); Lymphocytes % 6.2 % (15.3-44.8); MPV 9.4 fL (7.6-11.3); RBC Red Blood Cell Count 3.05 M/uL (3.86-4.86)
[2020-08-19 07:05] LABS: Potassium 4.1 mmol/L (3.5-5.1)
[2020-08-19] MEDS: VITAMIN B COMPLEX 1 CAP PO SCH (07:41)
[2020-08-19] MEDS: ASPIRIN EC 81 MG TAB PO SCH (07:41)
[2020-08-19] MEDS: GUAIFENESIN 600 MG SA TAB PO SCH ×2 (07:42→20:24)
[2020-08-19] MEDS: BIOTIN 5000 MCG PO SCH (07:42)
[2020-08-19] MEDS: CALCITROL 0.25 MCG CAP PO SCH (07:42)
[2020-08-19] MEDS: VITAMIN D 5,000 UNIT CAP PO SCH (07:43)
[2020-08-19] MEDS: CALCIUM CARBONATE CHEW 500MG TAB PO SCH ×2 (07:43→14:00)
[2020-08-19] MEDS: CYANOCOBALAMIN 1,000 MCG TAB PO SCH (08:31)
[2020-08-19] MEDS: MULTIVITAMINS,THERAPEUT 1 TAB PO SCH (08:31)
[2020-08-19] MEDS: DOCUSATE NA 100 MG CAP PO SCH ×2 (08:32→20:23)
[2020-08-19] MEDS: LEVOTHYROXINE SOD 0.075 MG TAB PO SCH (08:32)
[2020-08-19] MEDS: LACTOBACILLUS/ACIDOPHILUS TAB PO SCH ×2 (08:32→20:24)
[2020-08-19] MEDS: ASCORBIC ACID 500 MG TABLET PO SCH (08:38)
[2020-08-19] MEDS: levoFLOXacin 250 MG TAB PO SCH (08:38)
[2020-08-19] MEDS: FAMOTIDINE 20 MG TAB PO SCH (08:38)
[2020-08-19] MEDS: ZINC SULFATE 220 MG CAP PO SCH (08:39)
--- NOTE | 2020-08-19 08:49 | RAD REPORT ---
EXAM DESCRIPTION: RAD - Chest Single View - 08/19/2020 5:39 am CLINICAL HISTORY: vented Chest pain. COMPARISON: Chest Single View dated 08/16/2020; Abdomen 1 View (KUB) dated 08/14/2020; Chest Single View dated 08/14/2020; Chest Single View dated 08/14/2020 FINDINGS: Portable technique limits examination quality. Tip of the endotracheal tube is at the level of the superior aspect of aortic arch. Enteric tube is i n the stomach. Small bilateral pleural effusions, slightly greater on the right. The heart is moderat john enlarged. IMPRESSION: Stable chest since 08/16/2020.
[2020-08-19] MEDS ORDERED: levoFLOXacin 250 MG TAB ONE (08:54)
[2020-08-19] MEDS ORDERED: ZINC SULFATE 220 MG CAP ONE (08:54)
[2020-08-19] MEDS ORDERED: FAMOTIDINE 20 MG TAB ONE (08:55)
[2020-08-19] MEDS: SODIUM HYPOCHLORITE 0.25% 473 ML TOP SCH (08:55)
[2020-08-19] MEDS ORDERED: ASCORBIC ACID 500 MG TABLET ONE (08:55)
[2020-08-19] MEDS: NEPRO SHAKE 237 ML CAN PO SCH (08:57)
--- NOTE | 2020-08-19 09:21 | EEG ---
CHART: [id number] TEST ID#: [id number] DATE OF STUDY: 08/18/2020 THE EEG WAS RECORDED PORTABLE IN THE ER/ ICU ROOM TWELVE ON A 14 CHANNEL MACHINE. ELECTRODES WERE APPLIED IN THE USUAL MANNER USING THE INTERNATIONAL 10-20 SYSTEM. THE WAKING BACKGROUND RHYTHM IN THIS RECORD CONSISTS OF WELL DEVELOPED AND WELL ORGANIZED WAVES OF 1.5-3 HZ., IN A WIDE DISTRIBUTION WHICH DO NOT ATTENUATE NORMALLY WITH EYE OPENING. MODERATE VOLTAGE DIAPHASIC WAVES ARE EXPRESSED IN THE FRONTAL REGIONS. LOW-VOLTAGE 15-18 HZ ACTIVITY IS DIFFUSELY EXPRESSED. THERE ARE NO FOCAL OR LATERALIZING FEATURES. NO EPILEPTIFORM ACTIVITY APPEARS. SLEEP DID NOT OCCUR. HYPERVENTILATION WAS NOT PERFORMED. PHOTIC STIMULATION WAS NOT PERFORMED. IMPRESSION: ABNORMAL EEG. COMPARED TO THE MOST RECENT EEG, THIS STUDY HAS SHOWN SLIGHT IMPROVEMENT WITH FASTER BACKGROUND ACTIVITY. HOWEVER, THIS IS A MODERATELY TO SEVERELY ABNORMAL EEG DUE TO A MODERATELY TO SEVERELY SLOW BACKGROUND.
[2020-08-19 09:27] LABS: Platelet Estimate ADEQ; White Blood Cell Scan OK (OK)
[2020-08-19 09:28] LABS: Blood Morphology Comment NOT SEEN (NOT SEEN)
[2020-08-19] MEDS: EPOETIN ALFA-EPBX 4,000 UNIT/ML VIAL SQ SCH (11:21)
[2020-08-19] MEDS: HEPARIN 5000 UNIT/ML 1 ML VIAL SQ SCH ×2 (11:22→20:24)
[2020-08-19] MEDS ORDERED: HEPARIN 5000 UNIT/ML 1 ML VIAL ONE (11:25)
--- NOTE | 2020-08-19 14:40 | P.PN ---
Subjective Date of Service: 08/19/20 Chief Complaint: cardiopulmonary arrest Patient seen and examined at bedside. Pressers have been stopped at this time and family has agreed to treatment only to make the patient comfortable. Poor prognosis. Review of Systems 10-point ROS is otherwise unremarkable Physical Examination - Vital Signs Temperature: 96.2 F Blood Pressure: 77/48 Pulse: 61 Respirations: 16 Pulse Ox (%): 100 - Physical Exam Other Physical/Emotional Findings: General: on Vent, Other. HEENT: Atraumatic, Normocephalic. Neck: Supple, 2+ carotid pulse no bruit. Respiratory: Patient is intubated, equal breah sounds bilaterally. Cardiovascular: Regular rate/rhythm, Normal S1 S2. Capillary refill: <2 Seconds. Gastrointestinal: Normal bowel sounds, Soft and benign. Musculoskeletal: Other (Bilateral lower extremitie wounds-dressed and wrapped with Wayne wraps). Integumentary: right buttock stage 3 pressure wound:5x3cm, majority slough tissue present, periwound tissue shows purple/red discoloration. Sacral pressure wound stage 4: 2.5x1x1 cm. tunnling at 1 oclock position measuring 3.2 cm. Base of wound shows granulation tissue-minimal drainage. sacrococcyx stage 1: redness noted around area, surrounding stage 4 sacral wound. . Lymphatics: No axilla or inguinal lymphadenopathy. - Studies Laboratory Last Values WBC 6.20 K/uL (4.3-10.9) 08/07/20 04:17 RBC 3.04 M/uL (3.86-4.86) L 08/07/20 04:17 Hgb 9.5 g/dL (12.0-15.0) L 08/07/20 04:17 Hct 30.4 % (36.0-45.0) L 08/07/20 04:17 MCV 100.3 fL (80-100) H 08/07/20 04:17 MCH 31.2 pg (27.0-35.0) 08/07/20 04:17 MCHC 31.1 g/dL (32.0-36.0) L 08/07/20 04:17 RDW 18.9 % (12.1-15.2) H 08/07/20 04:17 Plt Count 233 K/uL (152-406) 08/07/20 04:17 MPV 8.0 fL (7.6-11.3) 08/07/20 04:17 Neutrophils % 77.6 % (41.7-73.7) H 08/07/20 04:17 Lymphocytes % 10.4 % (15.3-44.8) L 08/07/20 04:17 Monocytes % 8.9 % (3.3-12.3) 08/07/20 04:17 Eosinophils % 1.9 % (0-4.4) 08/07/20 04:17 Basophils % 1.2 % (0-1.3) 08/07/20 04:17 Absolute Neutrophils 4.8 K/uL (1.8-8.0) 08/07/20 04:17 Absolute Lymphocytes 0.6 K/uL (0.7-4.9) L 08/07/20 04:17 Absolute Monocytes 0.5 K/uL (0.1-1.3) 08/07/20 04:17 Absolute Eosinophils 0.1 K/uL (0-0.5) 08/07/20 04:17 Absolute Basophils 0.1 K/uL (0-0.5) 08/07/20 04:17 PT 15.3 SECONDS (9.5-12.5) H 08/05/20 23:57 INR 1.33 08/05/20 23:57 Sodium 140 mmol/L (136-145) 08/07/20 04:17 Potassium 4.1 mmol/L (3.5-5.1) 08/07/20 04:17 Chloride 106 mmol/L (98-107) 08/07/20 04:17 Carbon Dioxide 25 mmol/L (21-32) 08/07/20 04:17 BUN 31 mg/dL (7-18) H 08/07/20 04:17 Creatinine 3.20 mg/dL (0.55-1.3) H 08/07/20 04:17 Estimated GFR 14 mL/min (=/>90) L 08/07/20 04:17 Glucose 230 mg/dL (74-106) H 08/07/20 04:17 POC Glucose 286 mg/dL (65-120) H 08/07/20 11:08 Calcium 9.0 mg/dL (8.5-10.1) 08/07/20 04:17 Magnesium 2.1 mg/dL (1.8-2.4) 08/05/20 23:57 Total Bilirubin 0.7 mg/dL (0.2-1.0) 08/07/20 04:17 Direct Bilirubin 0.2 mg/dL (0-0.2) 08/05/20 23:57 AST 15 U/L (15-37) 08/07/20 04:17 ALT < 6 U/L (12-78) L 08/07/20 04:17 Alkaline Phosphatase 177 U/L (45-117) H 08/07/20 04:17 Rapid Troponin I 0.02 ng/mL (0.0-0.045) 08/05/20 23:57 Troponin I < 0.02 ng/mL (0.0-0.045) 08/06/20 08:50 NT-Pro-B Natriuret Pep 96927 pg/mL (<125) H 08/05/20 23:57 Serum Total Protein 6.0 g/dL (6.4-8.2) L 08/07/20 04:17 Albumin 1.9 g/dL (3.4-5.0) L 08/07/20 04:17 Globulin 4.1 g/dL (2.3-3.5) H 08/07/20 04:17 Albumin/Globulin Ratio 0.5 (1.1-1.8) L 08/07/20 04:17 SARS-CoV-2 RNA (RT-PCR) Negative (NEGATIVE) 08/06/20 03:48 Assessment And Plan - Plan Antibiotics: levaqin start: 08/15 stop: --pulmonology ordered/following. indication: pneumonia Vancomycin start: 08/07 stop: 09/18 indication: pelvic osteomyelitis Assessment: -pneumonia -stage IV sacral ulcer w osteomyelitis -stage III right buttocks ulcer -DTI to sacrococcyx area -ESRD on HD -diabetes type 2 -anemia plan: -pneumonia: Pulmonology following. continue Levaquin -stage IV sacral ulcer w osteomyelitis: CT pelvis confirmed osteomyelitis- continue vancomycin for 6 weeks from start stage. Start: 08/07 Stop: 09/18. continue wound vac at this time. -continue probiotic for duration of antibiotic therapy as patient is on two broad spectrum antibiotics. -stage III right buttocks ulcer: apply santyl and cover with foam qMWF -sacrococcyx stage 1: apply barrier cream to area and continue to offload -offload all pressure wounds and avoid direct pressure-air mattress in place -medical management per primary team -continue monitor CBC and BMP-no leukocytosis at this time -continue to monitor percent infection Plan of care discussed with Dr. Celis. Thank you for consultation. Physician Review: Patient Assessed, Agree with Above Assessment and Plan
--- NOTE | 2020-08-19 17:54 | P.PN ---
Subjective Date of Service: 08/19/20 Chief Complaint: cardiopulmonary arrest Patient intubated, unresponsive, not on sedation. Patient has been hypotensive. Physical Examination - Vital Signs Temperature: 96.2 F Blood Pressure: 72/44 Pulse: 61 Respirations: 16 Pulse Ox (%): 99 - Physical Exam General: Unresponsive HEENT: Other (ETT) Respiratory: Other (Bilateral upper airway transmitted sounds.) Cardiovascular: Regular rate/rhythm, Edema (Bilateral lower extremities) Gastrointestinal: Non-distended Integumentary: Other (Stage IV sacral decubitus ulcer) Neurological: Other (Unresponsive) Other Physical/Emotional Findings: General: on Vent, Other. HEENT: Atraumatic, Normocephalic. Neck: Supple, 2+ carotid pulse no bruit. Respiratory: Patient is intubated, equal breah sounds bilaterally. Cardiovascular: Regular rate/rhythm, Normal S1 S2. Capillary refill: <2 Seconds. Gastrointestinal: Normal bowel sounds, Soft and benign. Musculoskeletal: Other (Bilateral lower extremitie wounds-dressed and wrapped with Wayne wraps). Integumentary: right buttock stage 3 pressure wound:5x3cm, majority slough tissue present, periwound tissue shows purple/red discoloration. Sacral pressure wound stage 4: 2.5x1x1 cm. tunnling at 1 oclock position measuring 3.2 cm. Base of wound shows granulation tissue-minimal drainage. sacrococcyx stage 1: redness noted around area, surrounding stage 4 sacral wound. . Lymphatics: No axilla or inguinal lymphadenopathy. Assessment And Plan - Current Problems (Diagnosis) (1) Volume overload Current Visit: Yes Status: Acute (2) ESRD (end stage renal disease) on dialysis Onset Date: 06/17/17 Current Visit: No Status: Chronic (3) Pressure ulcer of sacral region, stage 3 Current Visit: No Status: Chronic (4) Right ischial pressure sore, stage 3 Current Visit: No Status: Chronic (5) Type 1 diabetes mellitus on insulin therapy Onset Date: 06/27/18 Current Visit: No Status: Chronic (6) Pneumonia Current Visit: Yes Status: Acute (7) Anemia in chronic kidney disease Current Visit: Yes Status: Acute (8) Anoxic encephalopathy Current Visit: Yes Status: Acute (9) Cardiopulmonary arrest Current Visit: Yes Status: Acute Physician Review: Patient Assessed, Agree with Above Assessment and Plan Physician Review Additional Text: Physical Exam General: intubated, unresponsive HEENT: ETT and OG tube in place Pulm: ventilated, diminished at bases bilaterally L>R Cardiovascular: Regular rate/rhythm, 1+ b/l edema noted in posterior thighs. Lower extremities wrapped in WAYNE Gastrointestinal: soft, nontender / nondistended Integumentary: sacral ulcer with wound vac in place Problem List Acute hypoxia secondary to volume overload and left lower lobe pneumonia ESRD with Volume overload ESRD (end stage renal disease) on dialysis Pressure ulcer of sacral region, stage 4 Right ischial pressure sore, stage 3 Type 1 diabetes mellitus on insulin pump at home Anemia in chronic kidney disease. Cardiac arrest code blue and intubated on 08/14 EEG x 2 - slow waves, severely abnormal, Dr. Norwood recommended repeat EEG tomorrow, CT brain: No acute changes. Repeat CT head tomorrow. Neurology. No spontaneous breathing movement. Anoxic encephalopathy with poor prognosis. Prognosis is even much worse given the presence of infection and need for hemodialysis. Very low likelihood of meaningful recovery. Neurology input appreciated. No escalation of care per family. No vasopressors per family. No hemodialysis per family. Family want to continue mechanical ventilation for now. Ongoing plan of care discussion with family. Recommend withdrawal of care and comfort measures. Continue antibiotics for sacral osteomyelitis and decubitus ulcers.
[2020-08-19] MEDS: ATORVASTATIN 10 MG TAB PO SCH (20:24)
--- NOTE | 2020-08-19 20:40 | P.PN ---
Date of Service: 08/19/20 Vital Signs Temp Pulse Resp BP Pulse Ox 96.2 F L 68 16 82/37 L 99 08/19/20 17:54 08/19/20 18:00 08/19/20 18:00 08/19/20 18:00 08/19/20 18:00 Medications Albuterol Sulfate (Albuterol 2.5 Mg/3 Ml Neb Lavern) 2.5 mg NEB Q3HP PRN PRN Reason: SHORTNESS OF BREATH Ascorbic Acid (Ascorbic Acid 500 Mg Tablet) 1,000 mg PO DAILY [facility] Last Admin: 08/19/20 08:38 Dose: 1,000 mg Documented by: Aspirin (Aspirin Ec 81 Mg Tab) 81 mg PO DAILY [facility] Last Admin: 08/19/20 07:41 Dose: Not Given Documented by: Atorvastatin Calcium (Atorvastatin 10 Mg Tab) 10 mg PO BEDTIME [facility] Last Admin: 08/19/20 20:24 Dose: Not Given Documented by: Calcitriol (Calcitrol 0.25 Mcg Cap) 0.5 mcg PO DAILY [facility] Last Admin: 08/19/20 07:42 Dose: Not Given Documented by: Cholecalciferol (Vitamin D 5,000 Unit Cap) 5,000 unit PO DAILY [facility] Last Admin: 08/19/20 07:43 Dose: Not Given Documented by: Collagenase (Collagenase 30 Gm Ointment) 1 appl TOP MoWeFr@0900 [facility] Last Admin: 08/18/20 08:56 Dose: 1 joby Documented by: Cyanocobalamin (Cyanocobalamin 1,000 Mcg Tab) 1,000 mcg PO DAILY [facility] Last Admin: 08/19/20 08:31 Dose: 1,000 mcg Documented by: Dextrose (D50w 25 Gm/50 Ml Vial) 12.5 gm IV PRN PRN; Protocol PRN Reason: HYPOGLYCEMIA Last Admin: 08/13/20 23:01 Dose: 12.5 gm Documented by: Docusate Sodium (Docusate Na 100 Mg Cap) 100 mg PO BID [facility] Last Admin: 08/19/20 20:23 Dose: Not Given Documented by: Famotidine (Famotidine 20 Mg Tab) 20 mg PO DAILY [facility]; Protocol Last Admin: 08/19/20 08:38 Dose: 20 mg Documented by: Glucagon (Glucagon 1 Mg/Vial) 1 mg IM 1X PRN; Protocol PRN Reason: HYPOGLYCEMIA Guaifenesin (Guaifenesin 600 Mg Sa Tab) 1,200 mg PO BID [facility] Last Admin: 08/19/20 20:24 Dose: Not Given Documented by: Heparin Sodium (Porcine) (Heparin 5000 Unit/Ml 1 Ml Vial) 5,000 unit SQ Q12HR [facility] Last Admin: 08/19/20 20:24 Dose: Not Given Documented by: Heparin Sodium (Porcine) (Heparin 1,000 Unit/Ml Vial) 2,000 unit IV EVERY HD PRN PRN Reason: dialysis Last Admin: 08/16/20 20:25 Dose: 2,000 unit Documented by: Home Med (Biotin [Biotin]) 1 cap PO DAILY [facility] Last Admin: 08/19/20 07:42 Dose: Not Given Documented by: Hydralazine HCl (Hydralazine Hcl 20 Mg/Ml Vial) 10 mg IV Q6HP PRN PRN Reason: Titrate to SBP (MUST DEFINE) Vancomycin HCl 500 mg/ Sodium (Chloride) 100 mls @ 100 mls/hr IVPB AFTER EACH DIALYSIS [facility] Last Admin: 08/17/20 00:12 Dose: 100 mls Documented by: Norepinephrine Bitartrate 4 mg (/ Dextrose) 254 mls @ 0 mls/hr IV PRN PRN; Protocol PRN Reason: Hemodynamic Parameters Last Admin: 08/16/20 20:56 Dose: 254 mls Documented by: Albumin Human (Albumin 25% 25 Gm) 100 mls @ 0 mls/hr IV UD [facility] Lactobacillus Acidoph/Bulgaricus (Lactobacillus/Acidophilus Tab) 1 tab PO BID [facility] Last Admin: 08/19/20 20:24 Dose: Not Given Documented by: Levofloxacin (Levofloxacin 250 Mg Tab) 250 mg PO DAILY [facility]; Protocol Last Admin: 08/19/20 08:38 Dose: 250 mg Documented by: Levothyroxine Sodium (Levothyroxine Sod 0.075 Mg Tab) 0.15 mg PO DAILY [facility] Last Admin: 08/19/20 08:32 Dose: 0.15 mg Documented by: Ondansetron HCl (Ondansetron 4 Mg/2 Ml Vial) 4 mg IV Q8H PRN PRN Reason: NAUSEA / VOMITING Last Admin: 08/13/20 23:01 Dose: 4 mg Documented by: Sodium Chloride (Flush Normal Saline 10 Ml) 10 ml IV BID [facility] Last Admin: 08/19/20 20:33 Dose: 10 ml Documented by: Sodium Hypochlorite (Sodium Hypochlorite 0.25% 473 Ml) 1 appl TOP DAILY [facility] Last Admin: 08/19/20 08:55 Dose: Not Given Documented by: Vitamin B Complex (Vitamin B Complex 1 Cap) 1 cap PO DAILY [facility] Last Admin: 08/19/20 07:41 Dose: Not Given Documented by: Vitamin B Complex/Vit C/Folic Acid (Multivitamins,Therapeut 1 Tab) 1 tab PO DAILY [facility] Last Admin: 08/19/20 08:31 Dose: 1 tab Documented by: Zinc Sulfate (Zinc Sulfate 220 Mg Cap) 220 mg PO DAILY [facility] Last Admin: 08/19/20 08:39 Dose: 220 mg Documented by: Assessment/ Plan: Nephrology/ ICU Cardiopulmonary arrest on Saturday08-14-20. Limited IH/ ROS due to AMS. Case reviewed with nurse and son at the bedside. Vitals, medications, blood work and imaging reviewed in the chart. Intubated. Not sedated. NAD. MMM. Neck supple. CTA. RRR. Soft Abd. No C/C. Hip edema1+. No rash. No Speech. Sacral ulcer. No purposeful movements. A/ P: Continue the current POC and Medications other than the changes listed. AM Labs PRN. Recommend daily weight. Please see the orders for complete det ails. ESRD -No acute HD at this time Hypokalemia/ Hyperkalemia HTN with CKD/ CHF complicated by hypotension -Hydralazine PRN -Give IV Albumin with HD as needed for hypotension -Levophed as needed A/C Diastolic CHF Anasarca -Low sodium diet -UF with HD as tolerated DM I with Polyneuropathy/ CKD -NPO Severe malnutriton with hypoalbuminemia -IV Albumin with HD -Consider Tube feeding Anemia in CKD -Continue Retacrit -Transfuse PRBC as needed TAWNYA/ Secondary HyperPTH -Continue Vitamin D3 Stage 3 Sacral Pressure Ulcer Sacral ulcer with osteomyelitis -Wound care as ordered -Continue Vancomycin and Levaquin -Air mattress -Tylenol #3 as needed for pain. LLL PNA -Continue Vancomycin and Levaquin Toxic metabolic encephalopathy concerning for anoxic encephalopathy -EEG abnormal -Follow up with neurology Greater than 30min patient care. The son understands that the prognosis is poor. The patient is DNR and the family wants conservative care. No change in therapy at this time. The family agrees to withhold HD at this time. No pressor support for hypotension at this time.
[2020-08-20] MEDS ORDERED: levoFLOXacin 250 MG TAB ONE (08:49)
[2020-08-20] MEDS ORDERED: FAMOTIDINE 20 MG TAB ONE (08:49)
[2020-08-20] MEDS ORDERED: LACTOBACILLUS/ACIDOPHILUS TAB ONE (08:53)
[2020-08-20] MEDS ORDERED: DOCUSATE NA 100 MG CAP PO ONE (08:54)
[2020-08-20] MEDS: LACTOBACILLUS/ACIDOPHILUS TAB PO SCH (09:00)
[2020-08-20] MEDS: VITAMIN D 5,000 UNIT CAP PO SCH (09:00)
[2020-08-20] MEDS: HEPARIN 5000 UNIT/ML 1 ML VIAL SQ SCH ×2 (09:00→20:48)
[2020-08-20] MEDS: CYANOCOBALAMIN 1,000 MCG TAB PO SCH (09:00)
[2020-08-20] MEDS: FAMOTIDINE 20 MG TAB PO SCH (09:00)
[2020-08-20] MEDS: SODIUM HYPOCHLORITE 0.25% 473 ML TOP SCH (09:00)
[2020-08-20] MEDS: VITAMIN B COMPLEX 1 CAP PO SCH (09:00)
[2020-08-20] MEDS: LEVOTHYROXINE SOD 0.075 MG TAB PO SCH (09:00)
[2020-08-20] MEDS: BIOTIN 5000 MCG PO SCH (09:00)
[2020-08-20] MEDS: ASCORBIC ACID 500 MG TABLET PO SCH (09:00)
[2020-08-20] MEDS: ZINC SULFATE 220 MG CAP PO SCH (09:00)
[2020-08-20] MEDS: levoFLOXacin 250 MG TAB PO SCH (09:00)
[2020-08-20] MEDS: CALCITROL 0.25 MCG CAP PO SCH (09:00)
[2020-08-20] MEDS: DOCUSATE NA 100 MG CAP PO SCH (09:00)
[2020-08-20] MEDS: GUAIFENESIN 600 MG SA TAB PO SCH (09:00)
[2020-08-20] MEDS: ASPIRIN EC 81 MG TAB PO SCH (09:00)
[2020-08-20] MEDS: MULTIVITAMINS,THERAPEUT 1 TAB PO SCH (09:00)
--- NOTE | 2020-08-20 15:15 | P.PN ---
Date of Service: 08/20/20 Vital Signs Temp Pulse Resp BP Pulse Ox 96.9 F 71 16 66/46 L 99 08/20/20 12:00 08/20/20 14:00 08/20/20 14:00 08/20/20 14:00 08/20/20 14:00 Medications Albuterol Sulfate (Albuterol 2.5 Mg/3 Ml Neb Lavern) 2.5 mg NEB Q3HP PRN PRN Reason: SHORTNESS OF BREATH Ascorbic Acid (Ascorbic Acid 500 Mg Tablet) 1,000 mg PO DAILY [facility] Last Admin: 08/20/20 09:00 Dose: Not Given Documented by: Aspirin (Aspirin Ec 81 Mg Tab) 81 mg PO DAILY [facility] Last Admin: 08/20/20 09:00 Dose: Not Given Documented by: Atorvastatin Calcium (Atorvastatin 10 Mg Tab) 10 mg PO BEDTIME [facility] Last Admin: 08/19/20 20:24 Dose: Not Given Documented by: Calcitriol (Calcitrol 0.25 Mcg Cap) 0.5 mcg PO DAILY [facility] Last Admin: 08/20/20 09:00 Dose: Not Given Documented by: Cholecalciferol (Vitamin D 5,000 Unit Cap) 5,000 unit PO DAILY [facility] Last Admin: 08/20/20 09:00 Dose: Not Given Documented by: Collagenase (Collagenase 30 Gm Ointment) 1 appl TOP MoWeFr@0900 [facility] Last Admin: 08/18/20 08:56 Dose: 1 joby Documented by: Cyanocobalamin (Cyanocobalamin 1,000 Mcg Tab) 1,000 mcg PO DAILY [facility] Last Admin: 08/20/20 09:00 Dose: Not Given Documented by: Dextrose (D50w 25 Gm/50 Ml Vial) 12.5 gm IV PRN PRN; Protocol PRN Reason: HYPOGLYCEMIA Last Admin: 08/13/20 23:01 Dose: 12.5 gm Documented by: Docusate Sodium (Docusate Na 100 Mg Cap) 100 mg PO BID [facility] Last Admin: 08/20/20 09:00 Dose: Not Given Documented by: Famotidine (Famotidine 20 Mg Tab) 20 mg PO DAILY [facility]; Protocol Last Admin: 08/20/20 09:00 Dose: Not Given Documented by: Glucagon (Glucagon 1 Mg/Vial) 1 mg IM 1X PRN; Protocol PRN Reason: HYPOGLYCEMIA Guaifenesin (Guaifenesin 600 Mg Sa Tab) 1,200 mg PO BID [facility] Last Admin: 08/20/20 09:00 Dose: Not Given Documented by: Heparin Sodium (Porcine) (Heparin 5000 Unit/Ml 1 Ml Vial) 5,000 unit SQ Q12HR [facility] Last Admin: 08/20/20 09:00 Dose: Not Given Documented by: Heparin Sodium (Porcine) (Heparin 1,000 Unit/Ml Vial) 2,000 unit IV EVERY HD PRN PRN Reason: dialysis Last Admin: 08/16/20 20:25 Dose: 2,000 unit Documented by: Home Med (Biotin [Biotin]) 1 cap PO DAILY [facility] Last Admin: 08/20/20 09:00 Dose: Not Given Documented by: Hydralazine HCl (Hydralazine Hcl 20 Mg/Ml Vial) 10 mg IV Q6HP PRN PRN Reason: Titrate to SBP (MUST DEFINE) Vancomycin HCl 500 mg/ Sodium (Chloride) 100 mls @ 100 mls/hr IVPB AFTER EACH DIALYSIS [facility] Last Admin: 08/17/20 00:12 Dose: 100 mls Documented by: Norepinephrine Bitartrate 4 mg (/ Dextrose) 254 mls @ 0 mls/hr IV PRN PRN; Protocol PRN Reason: Hemodynamic Parameters Last Admin: 08/16/20 20:56 Dose: 254 mls Documented by: Albumin Human (Albumin 25% 25 Gm) 100 mls @ 0 mls/hr IV UD [facility] Lactobacillus Acidoph/Bulgaricus (Lactobacillus/Acidophilus Tab) 1 tab PO BID [facility] Last Admin: 08/20/20 09:00 Dose: Not Given Documented by: Levofloxacin (Levofloxacin 250 Mg Tab) 250 mg PO DAILY [facility]; Protocol Last Admin: 08/20/20 09:00 Dose: Not Given Documented by: Levothyroxine Sodium (Levothyroxine Sod 0.075 Mg Tab) 0.15 mg PO DAILY [facility] Last Admin: 08/20/20 09:00 Dose: Not Given Documented by: Ondansetron HCl (Ondansetron 4 Mg/2 Ml Vial) 4 mg IV Q8H PRN PRN Reason: NAUSEA / VOMITING Last Admin: 08/13/20 23:01 Dose: 4 mg Documented by: Sodium Chloride (Flush Normal Saline 10 Ml) 10 ml IV BID [facility] Last Admin: 08/20/20 08:00 Dose: 10 ml Documented by: Sodium Hypochlorite (Sodium Hypochlorite 0.25% 473 Ml) 1 appl TOP DAILY [facility] Last Admin: 08/20/20 09:00 Dose: Not Given Documented by: Vitamin B Complex (Vitamin B Complex 1 Cap) 1 cap PO DAILY [facility] Last Admin: 08/20/20 09:00 Dose: Not Given Documented by: Vitamin B Complex/Vit C/Folic Acid (Multivitamins,Therapeut 1 Tab) 1 tab PO DAILY [facility] Last Admin: 08/20/20 09:00 Dose: Not Given Documented by: Zinc Sulfate (Zinc Sulfate 220 Mg Cap) 220 mg PO DAILY [facility] Last Admin: 08/20/20 09:00 Dose: Not Given Documented by: Assessment/ Plan: Nephrology/ ICU Cardiopulmonary arrest on Saturday08-14-20. Limited IH/ ROS due to AMS. Case reviewed with nurse and at the bedside. Vitals, medications, blood work and imaging reviewed in the chart. Intubated. Not sedated. NAD. MMM. Neck supple. CTA. RRR. Soft Abd. No C/C. Hip edema1+. No rash. No Speech. Sacral ulcer. No purposeful movements. A/ P: Continue the current POC and Medications other than the changes listed. AM Labs PRN. Recommend daily weight. Please see the orders for complete details. ESRD -No acute HD at this time Hypokalemia/ Hyperkalemia HTN with CKD/ CHF complicated by hypotension -Hydralazine PRN -No pressor therapy at this time A/C Diastolic CHF Anasarca -NPO DM I with Polyneuropathy/ CKD -NPO Severe malnutriton with hypoalbuminemia -NPO Anemia in CKD -Discontinue Retacrit -Transfuse PRBC as needed TAWNYA/ Secondary HyperPTH -Discontinue Vitamin D3 Stage 3 Sacral Pressure Ulcer Sacral ulcer with osteomyelitis -Wound care as ordered -Continue Vancomycin and Levaquin -Air mattress LLL PNA -Continue Vancomycin and Levaquin Toxic metabolic encephalopathy concerning for anoxic encephalopathy -EEG abnormal Greater than 30min patient care. The family expects the patient to pass on soon but does not want to withdraw care at this time. Multiple oral medications discontinued.
--- NOTE | 2020-08-20 18:48 | P.PN ---
Subjective Date of Service: 08/20/20 Chief Complaint: cardiopulmonary arrest Patient is declining. She is very hypotensive with systolic in the 60s Physical Examination - Vital Signs Temperature: 96.7 F Blood Pressure: 58/29 Pulse: 75 Respirations: 16 Pulse Ox (%): 99 - Physical Exam General: Unresponsive HEENT: Other (ETT) Cardiovascular: Irregular heart rate/rhythm Gastrointestinal: Non-distended Musculoskeletal: No contractures Neurological: Other (Unresponsive) Other Physical/Emotional Findings: General: on Vent, Other. HEENT: Atraumatic, Normocephalic. Neck: Supple, 2+ carotid pulse no bruit. Respiratory: Patient is intubated, equal breah sounds bilaterally. Cardiovascular: Regular rate/rhythm, Normal S1 S2. Capillary refill: <2 Seconds. Gastrointestinal: Normal bowel sounds, Soft and benign. Musculoskeletal: Other (Bilateral lower extremitie wounds-dressed and wrapped with Wayne wraps). Integumentary: right buttock stage 3 pressure wound:5x3cm, majority slough tissue present, periwound tissue shows purple/red discoloration. Sacral pressure wound stage 4: 2.5x1x1 cm. tunnling at 1 oclock position measuring 3.2 cm. Base of wound shows granulation tissue-minimal drainage. sacrococcyx stage 1: redness noted around area, surrounding stage 4 sacral wound. . Lymphatics: No axilla or inguinal lymphadenopathy. Assessment And Plan - Current Problems (Diagnosis) (1) Volume overload Current Visit: Yes Status: Acute (2) ESRD (end stage renal disease) on dialysis Onset Date: 06/17/17 Current Visit: No Status: Chronic (3) Pressure ulcer of sacral region, stage 3 Current Visit: No Status: Chronic (4) Right ischial pressure sore, stage 3 Current Visit: No Status: Chronic (5) Type 1 diabetes mellitus on insulin therapy Onset Date: 06/27/18 Current Visit: No Status: Chronic (6) Pneumonia Current Visit: Yes Status: Acute (7) Anemia in chronic kidney disease Current Visit: Yes Status: Acute (8) Anoxic encephalopathy Current Visit: Yes Status: Acute (9) Cardiopulmonary arrest Current Visit: Yes Status: Acute Physician Review Additional Text: Physical Exam General: intubated, unresponsive HEENT: ETT and OG tube in place Pulm: ventilated, diminished at bases bilaterally L>R Cardiovascular: Regular rate/rhythm, 1+ b/l edema noted in posterior thighs. Lower extremities wrapped in WAYNE Gastrointestinal: soft, nontender / nondistended Integumentary: sacral ulcer with wound vac in place Problem List Acute hypoxia secondary to volume overload and left lower lobe pneumonia ESRD with Volume overload ESRD (end stage renal disease) on dialysis Pressure ulcer of sacral region, stage 4 Right ischial pressure sore, stage 3 Type 1 diabetes mellitus on insulin pump at home Anemia in chronic kidney disease. Cardiac arrest code blue and intubated on 08/14 EEG x 2 - slow waves, severely abnormal, Dr. Norwood recommended repeat EEG tomorrow, CT brain: No acute changes. Repeat CT head tomorrow. Neurology. No spontaneous breathing movement. Anoxic encephalopathy with poor prognosis. Prognosis is even much worse given the presence of infection and need for hemodialysis. Very low likelihood of meaningful recovery. Neurology input appreciated. No escalation of care per family. No vasopressors per family. No hemodialysis per family. No antibiotics. Family does not want to withdraw care or want her comfortable on mechanical ventilation until she dies. She is declining.
[2020-08-21 00:28] VITALS: BP 52/34; TEMP 96
[2020-08-21 00:52] VITALS: O2SAT 99
[2020-08-21 10:18] LABS: HBsAG Nonreactive (Nonreactive)
--- NOTE | 2020-08-21 15:12 | P.DS ---
Admission Date: 08/07/20 Discharge Date: 08/21/20 Disposition: Discharge Condition: Reason for Admission: cardiopulmonary arrest - Problems (1) Volume overload Status: Acute (2) ESRD (end stage renal disease) on dialysis Onset Date: 06/17/17 Status: Chronic (3) Pressure ulcer of sacral region, stage 3 Status: Chronic (4) Right ischial pressure sore, stage 3 Status: Chronic (5) Type 1 diabetes mellitus on insulin therapy Onset Date: 06/27/18 Status: Chronic (6) Pneumonia Status: Acute (7) Anemia in chronic kidney disease Status: Acute (8) Anoxic encephalopathy Status: Acute (9) Cardiopulmonary arrest Status: Acute Brief History of Present Illness: 65-year-old woman with a history of hypertension, diabetes mellitus, end-stage renal disease on hemodialysis, history of failed kidney transplant, history of chronic CHF, history of chronic respiratory failure on home oxygen presented to the emergency department with worsening shortness of breath after dialysis. Patient also developed low blood pressure during hemodialysis. His chest x-ray showed left pleural effusion with pulmonary edema. Patient has a history of sacral decubitus ulcer. She was admitted further management. Hospital Course: Patient admitted to the medical floor and nephrology consulted. She received sessions of hemodialysis. Patient with a history of chronic sacral decubitus ulcer. CT pelvis showed signs of osteomyelitis. Infectious disease consulted and patient was started on aggressive antibiotic therapy. All cultures yielded no growth. Patient during the course of hospitalization patient developed cardiopulmonary arrest, ACLS was carried out with ROSC. Patient did not regain consciousness. She was intubated for mechanical ventilation started. She also required vasopressors. Neurology was consulted, EEG and CT head were performed and patient diagnosed with anoxic encephalopathy. Family later decided that pursue comfort measures but to continue mechanical ventilation, no hemodialysis, no IV fluid, no antibiotics, no wound care and no labs and DNR. Patient gradually declined and on 08/21/2020 at 0102 hours. Vital Signs/Physical Exam: Temp Pulse Resp BP Pulse Ox 96 F L 0 L 0 L 52/34 L 0 L 08/21/20 00:00 08/21/20 01:02 08/21/20 01:02 08/21/20 00:00 08/21/20 01:02 Other Physical/Emotional Findings: General: on Vent, Other. HEENT: Atraumatic, Normocephalic. Neck: Supple, 2+ carotid pulse no bruit. Respiratory: Patient is intubated, equal breah sounds bilaterally. Cardiovascular: Regular rate/rhythm, Normal S1 S2. Capillary refill: <2 Seconds. Gastrointestinal: Normal bowel sounds, Soft and benign. Musculoskeletal: Other (Bilateral lower extremitie wounds-dressed and wrapped with Wayne wraps). Integumentary: right buttock stage 3 pressure wound:5x3cm, majority slough tissue present, periwound tissue shows purple/red discoloration. Sacral pressure wound stage 4: 2.5x1x1 cm. tunnling at 1 oclock position measuring 3.2 cm. Base of wound shows granulation tissue-minimal drainage. sacrococcyx stage 1: redness noted around area, surrounding stage 4 sacral wound. . Lymphatics: No axilla or inguinal lymphadenopathy. Laboratory Data at Discharge: WBC 6.40 K/uL (4.3-10.9) 08/19/20 05:50 Hgb 9.5 g/dL (12.0-15.0) L 08/19/20 05:50 Hct 31.1 % (36.0-45.0) L D 08/19/20 05:50 Plt Count 222 K/uL (152-406) 08/19/20 05:50 PT 15.3 SECONDS (9.5-12.5) H 08/05/20 23:57 INR 1.33 08/05/20 23:57 Sodium 138 mmol/L (136-145) 08/19/20 05:50 Potassium 4.1 mmol/L (3.5-5.1) 08/19/20 05:50 BUN 53 mg/dL (7-18) H D 08/19/20 05:50 Creatinine 2.98 mg/dL (0.55-1.3) H D 08/19/20 05:50 Glucose 328 mg/dL (74-106) H 08/19/20 05:50 Phosphorus 3.2 mg/dL (2.5-4.9) 08/16/20 05:15 Magnesium 2.7 mg/dL (1.8-2.4) H 08/16/20 05:15 Total Bilirubin 1.3 mg/dL (0.2-1.0) H 08/16/20 05:15 AST 51 U/L (15-37) H 08/16/20 05:15 ALT 11 U/L (12-78) L 08/16/20 05:15 Alkaline Phosphatase 161 U/L (45-117) H 08/16/20 05:15 Troponin I 0.40 ng/mL (0.0-0.045) H 08/15/20 09:21 Home Medications: Ascorbic Acid [C-1000] 1,000 mg PO DAILY 08/06/20 B-Complex with Vitamin C [Super B Complex-Vitamin C] 1 tab PO DAILY 08/06/20 Biotin 1 cap PO DAILY 08/06/20 Calcium Carbonate [Tums Regular*] 2 tab PO TID 08/06/20 Cholecalciferol (Vitamin D3) [Vitamin D3] 5,000 unit PO DAILY 08/06/20 Esomeprazole Magnesium 40 mg PO DAILY 08/06/20 Folic Acid/Vit B Complex and C [Judy-Karl Tablet] 1 tab PO DAILY 08/06/20 Isosorbide Mononitrate [Isosorbide Mononitrate ER] 60 mg PO BEDTIME 08/06/20 Levothyroxine Sodium [Synthroid] 2 tab PO DAILY 08/06/20 Mecobalamin [B12 Active] 50,000 mg PO DAILY 08/06/20 [place]-3/Dha/Epa/Fish Oil [Fish Oil [place]-3 EC 1,200 mg] 1 cap PO DAILY 08/06/20 Pravastatin Sodium 20 mg PO BEDTIME 08/06/20 Vitamin B Complex [Vitamin B Complex*] 1 cap PO DAILY 08/06/20 Zinc 22 mg PO DAILY 08/06/20 Followup: Tad Vogel PA [Primary Care Provider] -
== END 2020-08-21 01:02 | disposition expired | DRG 207 ==
LOC: ER 22:25 → ERHOLD 08-06 04:39 → INTOOBSV 08-06 04:39 → OBSVTOIN 08-06 04:39 → 2ND 08-06 05:19 → OBSVTOIN 08-07 11:41 → ERHOLD 08-14 16:41 → 2ND 08-15 03:58 → ERHOLD 08-15 04:06
PROVIDERS: ADMIT Internal Medicine; ATTEND Internal Medicine
PROC: 5A1D70Z Performance of Urinary Filtration, Intermittent, Less than 6 Hours Per Day (ICD-10-PCS; 2020-08-10)
PROC: 5A1955Z Respiratory Ventilation, Greater than 96 Consecutive Hours (ICD-10-PCS; principal; 2020-08-14)
PROC: 0BH17EZ Insertion of Endotracheal Airway into Trachea, Via Natural or Artificial Opening (ICD-10-PCS; 2020-08-14)
PROC: 5A12012 Performance of Cardiac Output, Single, Manual (ICD-10-PCS; 2020-08-14)
PROC: 06HY33Z Insertion of Infusion Device into Lower Vein, Percutaneous Approach (ICD-10-PCS; 2020-08-14)
DX: J18.9 Pneumonia, unspecified organism (principal); L89.154 Pressure ulcer of sacral region, stage 4; L89.313 Pressure ulcer of right buttock, stage 3; N18.6 End stage renal disease; J96.01 Acute respiratory failure with hypoxia; I50.33 Acute on chronic diastolic (congestive) heart failure; E43 Unspecified severe protein-calorie malnutrition; G92 Toxic encephalopathy; I13.2 Hypertensive heart and chronic kidney disease with heart failure and with stage 5 chronic kidney disease, or end stage renal disease; Z94.0 Kidney transplant status; J44.0 Chronic obstructive pulmonary disease with (acute) lower respiratory infection; N25.81 Secondary hyperparathyroidism of renal origin; M86.8X8 Other osteomyelitis, other site; G93.1 Anoxic brain damage, not elsewhere classified; E03.9 Hypothyroidism, unspecified; I89.0 Lymphedema, not elsewhere classified; D63.1 Anemia in chronic kidney disease; E10.42 Type 1 diabetes mellitus with diabetic polyneuropathy; E10.69 Type 1 diabetes mellitus with other specified complication; E10.22 Type 1 diabetes mellitus with diabetic chronic kidney disease; E10.649 Type 1 diabetes mellitus with hypoglycemia without coma; K59.00 Constipation, unspecified; I46.9 Cardiac arrest, cause unspecified; E87.5 Hyperkalemia; I48.91 Unspecified atrial fibrillation; E87.6 Hypokalemia; E88.09 Other disorders of plasma-protein metabolism, not elsewhere classified; N25.0 Renal osteodystrophy; L89.151 Pressure ulcer of sacral region, stage 1; Z66 Do not resuscitate; Z88.0 Allergy status to penicillin; Z68.22 Body mass index [BMI] 22.0-22.9, adult; Z95.828 Presence of other vascular implants and grafts; Z99.2 Dependence on renal dialysis; Z79.899 Other long term (current) drug therapy; Z79.890 Hormone replacement therapy; Z79.4 Long term (current) use of insulin; Z99.81 Dependence on supplemental oxygen; Z96.41 Presence of insulin pump (external) (internal); Z20.822 Contact with and (suspected) exposure to COVID-19; Z78.1 Physical restraint status
CPT/HCPCS: 36415; 70450; 71045; 71250; 72192; 74018; 80048; 80053; 80069; 80076; 80202; 82728; 82805; 82947; 83605; 83615; 83735; 83880; 84100; 84132; 84145; 84484; 85025; 85610; 86140; 86317; 86705; 87040; 87070; 87077; 87186; 87205; 87340; 90935; 92610; 93005; 93306; 94002; 94003; 94760; 95816; 97110; 97161; 97530; 99251; 99285; G0378; J0171; J1644; J1815; J2270; J2405; J3370; J3590; J7030; J7050; J7060; J7799; P9047; Q5106; U0003